=== PATIENT | female | born 1980 | race Caucasian/White ===

== ENCOUNTER 2016-10-02 20:08 | Emergency (ER) | payer MEDICARE, OTHER ==
[~2016-10-02 20:08] MED LIST: /ESOM40CA; /ONDA4TA PO; ABIL5TAB; ACET500C; ALBU17IN2 INH; AMIT25TA2; ASPI1TAB6 PO; ATIV1TAB2; CLON0.5T; COLA100C2; CYTO100T PO; DEPA250T2; DEPA500T; DICY10CA PO; DRIS50002 PO; EPIP0.3I2 IJ; FENT100D25; FISHCAP PO; FLON0.054; IBUP600T; KLON0.5T; LASI20TA PO; LIDO1DIS2 TD; LIPI10TA PO; LITH150C; MAGN250T5 PO; METO25TAB PO; MILKSUS OR; MOBI7.5T10 PO; MUCI600T34 PO; MULTCAP8 PO; MULTCHW13 PO; NAPR500T OR; NEXI20CA; NICO21DI26 EXT; OMEP40CA2 PO; OXYC-299 PO; PERC5TAB8; PERC7.5T8; PERCOCET PO; PRENTAB7 PO; PREV30CA11 PO; PRIL20CA PO; PRIL40CA PO; PROT1TAB2 PO; PROV90AE; PROZ20CA11 PO; RISP0.5T16 PO; SERO50TA PO; SUMA125TA OR; TEGR200T PO; TOPA25TA10 PO; TOPI100T OR; TRAM50TA2; TRAZ100T OR; TRAZ50TA; TRAZ50TA4 PO; TYLE325T5 PO; VALI5TAB; VENL37.5; VICO5TAB; VIST25CA; XANA0.5T PO; ZYRT10CA PO; [UNRECOGNIZED DRUG - CODE] PO; [UNRECOGNIZED DRUG - REMARK]; lithium; migraine med
[2016-10-02] MEDS ORDERED: KETOROLAC 30 MG/ML VIAL (J1885) As Ordered ONE (21:07)
[2016-10-02] MEDS ORDERED: METOCLOPRAMIDE INJ 10MG/2ML VIAL (J2765) As Ordered ONE (21:07)
[2016-10-02] MEDS ORDERED: diphenhydrAMINE INJ 50MG/ML VIAL (J1200) As Ordered ONE (21:07)
--- NOTE | 2016-10-02 22:33 | EDDOCDS ---
Physician Documentation [facility] Name: Suyapa Watt Age: 36 yrs Sex: Female : 1980 Arrival Date: 10/02/2016 Time: 20:08 Bed 9 Private MD: No Pcp Disposition: 10/02/16 22:26 Discharged to Home/Self Care. Impression: Migraine with aura. - Condition is Stable. - Discharge Instructions: Migraine Headache. - Medication Reconciliation, Local Pharmacy Hours form. - Follow up: Private Physician; When: 4 - 5 days; Reason: Recheck today's complaints, Continuance of care. - Problem is an ongoing problem. - Symptoms are unchanged. Historical: - Allergies: bee stings (Anaphylaxis); SHELLFISH (Anaphylaxis); Zoloft (Rash); - Home Meds: 1. aspirin 325 mg Oral tab 1 tab once daily 2. Cymbalta 60 mg Oral cpDR 1 cap bid 3. epinephrine 1 mg/mL (1 mL) injection kit 4. ibuprofen 800 mg Oral tab as needed 5. multivitamin Oral tab daily - PMHx: ADHD; Bipolar disorder; bradycardia; cervical cancer; CHF; Hypertension; MD; TIA; - PSHx: Pacemaker Insertion; Hysterectomy; Appendectomy; Cholecystectomy; Gastric Bypass; - Social history: Smoking status: Patient states was never smoker of tobacco. No barriers to communication noted, The patient speaks fluent Wolof. - Family history: Not pertinent. - : The pt / caregiver states he / she is not on anticoagulants. Home medication list is obtained from the patient. - Exposure Risk Screening:: None identified. 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 1 in. (154.94 cm) (R); Pain 8/10; 22:30 BP 115 / 60; Pulse 60; Resp 18; Temp 97.9(TE); Pulse Ox 98% on R/A; Pain 0/10; leonardo 20:10 Body Mass Index 37.41 (89.81 kg, 154.94 cm) dd6 MDM: 21:03 NS 0.9% 1000 ml IV at bolus once ordered. ke 21:03 Metoclopramide 10 mg IV at 40 mg/hr once over 15 mins ordered. ke 21:03 ketorolac 30 mg IVP once ordered. ke 21:03 diphenhydrAMINE 50 mg IVP once ordered. ke 21:20 Financial registration complete. ron :34 [facility] Payment Agreement was scanned into [employer] and attached to record. gjb Administered Medications: 21:20 Drug: NS 0.9% 1000 ml [sodium chloride 0.9 % intravenous solution] Route: IV; Rate: ko2 bolus; Site: right antecubital; 21:20 Drug: Metoclopramide 10 mg [metoclopramide 5 mg/mL injection solution] Route: IV; Rate: ko2 40 mg/hr; Infused Over: 15 mins; Site: right antecubital; 22:23 Follow up: Response: Nausea is resolved; IV Status: Completed infusion ko2 21:20 Drug: ketorolac 30 mg [ketorolac 30 mg/mL (1 mL) injection solution (1 mL)] Route: IVP; ko2 Site: right antecubital; 22:23 Follow up: Response: Pain is decreased ko2 21:20 Drug: diphenhydrAMINE 50 mg [diphenhydramine 50 mg/mL injection solution (1 mL)] Route: ko2 IVP; Site: right antecubital; 22:23 Follow up: Response: Pain is decreased ko2 Signatures: Tereso Mcqueen, INFORMATICIST INFORMATICISTHolly Kidd RN RN ko2 Geri Denton RN RN ms18 Silva Reynoso The chart was reviewed and I authenticate all verbal orders and agree with the evaluation and treatment provided.Attachments: :34 [facility] Payment Agreement gjb MTDD
--- NOTE | 2016-10-02 22:33 | EDDOCDS ---
Nurse's Notes [facility] Name: Suyapa Watt Age: 36 yrs Sex: Female : 1980 Arrival Date: 10/02/2016 Time: 20:08 Bed 9 Private MD: No Pcp Diagnosis: Migraine with aura Presentation: 10/02 20:16 Presenting complaint: Patient states: that she has some L sided facial droop and ms18 headache that began this morning. PT states that this has happened once before and she was flown to [place] and diagnosed with "migraine aura". The last date and time the patient was known to be well was was at on October 01, 2016. No acute neurological deficit is noted. Pre-hospital glucose is not applicable to this patient. Adult Sepsis Screening: The patient does not have new or worsening altered mentation. Patient's respiratory rate is less than 22. Systolic blood pressure is greater than 100. Patient has a qSOFA score of 0- Negative Sepsis Screen. Suicide/Homicide risk assessment- the patient denies having any suicidal and/or homicidal ideations and does not present with any other emotional, behavioral or mental health complaints. 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 Transition of care: patient was not received from another setting of care. 20:16 Acuity: ERIN Level 3 ms18 20:16 Method Of Arrival: Walkin/Carried/Asstd ms18 Triage Assessment: 20:19 The onset of the patients symptoms was more than three hours ago. General: Appears in ms18 no apparent distress, obese, Behavior is appropriate for age, cooperative. Pain: Location: head Pain currently is 10 out of 10 on a pain scale. HIV screening NA for this visit Offered previously. Neurological: Level of Consciousness is awake, alert, obeys commands, Oriented to person, place, time, Theater Manager are equal bilaterally Moves all extremities. Gait is steady, Speech is normal, Facial droop on left, Reports headache. Respiratory: No deficits noted. Derm: Skin is pink, warm & dry. 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 aspirin 325 mg Oral tab 1 tab once daily 2. Cymbalta 60 mg Oral cpDR 1 cap bid 3. epinephrine 1 mg/mL (1 mL) injection kit 4. ibuprofen 800 mg Oral tab as needed 5. multivitamin Oral tab daily - PMHx: ADHD; Bipolar disorder; bradycardia; cervical cancer; CHF; Hypertension; [place]; TIA; - PSHx: Pacemaker Insertion; Hysterectomy; Appendectomy; Cholecystectomy; Gastric Bypass; - Social history: Smoking status: Patient states was never smoker of tobacco. No barriers to communication noted, The patient speaks fluent Syriac. - Family history: Not pertinent. - : The pt / caregiver states he / she is not on anticoagulants. Home medication list is obtained from the patient. - Exposure Risk Screening:: None identified. Screenin:48 Screening information is obtained from the patient. Fall risk: No risks identified. ko2 Assistance ADL's: requires no assistance with activities of daily living. Abuse/DV Screen: The patient / caregiver reports he/she is: not in a situation that causes fear, pain or injury. Nutritional screening: No deficits noted. Advance Directives: Currently, there is no health care proxy. There is no active DNR order. There is no living will. There is no Power of Phlebotomy Services Representative. home support is adequate. Assessment: 20:47 General: Appears uncomfortable, Behavior is appropriate for age, cooperative, Reports ko2 started with the dropping of face earlier and then now her head is "pounding". Pain: Location: head Pain currently is 9 out of 10 on a pain scale. Neurological: Level of Consciousness is awake, alert, Oriented to person, place, time, Speech Facial droop on left. Respiratory: Airway is patent Respiratory effort is even, unlabored. Derm: Skin is normal. 21:45 General: Appears in no apparent distress, Behavior is appropriate for age, cooperative. ko2 Neurological: No deficits noted. Respiratory: Airway is patent Respiratory effort is even, unlabored. Derm: Skin is normal. 22:30 General: Appears in no apparent distress, comfortable, Behavior is appropriate for age, ko2 cooperative. Pain: Denies pain. Neurological: Level of Consciousness is awake, alert, Oriented to person, place, time, Facial symmetry appears normal. Respiratory: Airway is patent Respiratory effort is even, unlabored. Derm: Skin is normal. Vital Signs: 20:10 BP 149 / 96; Pulse 75; Resp 18 S; Temp 98.6(O); Pulse Ox 98% on R/A; Weight 89.81 kg dd6 (R); Height 5 ft. 1 in. (154.94 cm) (R); Pain 8/10; 22:30 BP 115 / 60; Pulse 60; Resp 18; Temp 97.9(TE); Pulse Ox 98% on R/A; Pain 0/10; leonardo 20:10 Body Mass Index 37.41 (89.81 kg, 154.94 cm) dd6 Vitals: 20:10 Log In Time: October 02, 2016 at 20:10. RN notified that patient meets Red Flag dd6 criteria. 22:32 Glucose Measurement D-stick deferred by provider. ko2 ED Course: 20:09 Patient visited by Collin Echeverria PCA. dd6 20:09 No Pcp is Private Physician. dd6 20:09 Patient moved to Waiting dd6 20:12 Patient visited by Collin Echeverria PCA. dd6 20:12 Patient visited by Collin Echeverria PCA. dd6 20:13 Patient visited by Collin Echeverria PCA. dd6 20:13 Patient moved to Pre RCE dd6 20:18 Triage Initiated ms18 20:21 Holly Bhagat,RN is Primary Nurse. ms18 20:21 Patient moved to 9 ms18 20:40 Patient visited by Regis Agee,CALLUM. jf3 20:40 Inserted saline lock: 20 gauge in right antecubital area The patient tolerated the jf3 procedure well. 20:46 Tereso Mcqueen FNP is [facility]. ke 20:46 Patient visited by Tereso Mcqueen FNP. ke 20:46 Patient visited by Tereso Mcqueen FNP. ke 20:48 Patient visited by Holly Bhagat RN. ko2 20:48 The patient / caregiver is instructed regarding the plan of care and ED course. ko2 21:19 Patient visited by Holly Bhagat RN. ko2 21:34 [facility] Payment Agreement was scanned into [employer] and attached to record. gjb 21:52 Patient visited by Tereso Mcqueen FNP. ke 22:25 Patient visited by Tereso Mcqueen FNP. ke 22:30 Patient visited by Binta Cabrera PCA. leonardo 22:31 Discontinued IV lock intact, bleeding controlled, pressure dressing applied, No ko2 redness/swelling at site. No procedures done that require assistance. Administered Medications: 21:20 Drug: NS 0.9% 1000 ml [sodium chloride 0.9 % intravenous solution] Route: IV; Rate: ko2 bolus; Site: right antecubital; 21:20 Drug: Metoclopramide 10 mg [metoclopramide 5 mg/mL injection solution] Route: IV; Rate: ko2 40 mg/hr; Infused Over: 15 mins; Site: right antecubital; 22:23 Follow up: Response: Nausea is resolved; IV Status: Completed infusion ko2 21:20 Drug: ketorolac 30 mg [ketorolac 30 mg/mL (1 mL) injection solution (1 mL)] Route: IVP; ko2 Site: right antecubital; 22:23 Follow up: Response: Pain is decreased ko2 21:20 Drug: diphenhydrAMINE 50 mg [diphenhydramine 50 mg/mL injection solution (1 mL)] Route: ko2 IVP; Site: right antecubital; 22:23 Follow up: Response: Pain is decreased ko2 Order Results: There are currently no results for this order. Outcome: 22:26 Discharge ordered by Provider. ke 22:31 Discharge Assessment: Patient awake, alert and oriented x 3. No cognitive and/or ko2 functional deficits noted. Patient verbalized understanding of disposition instructions. patient administered narcotics - no. The following High Risk Discharge criteria are identified: None. Discharged to home ambulatory, with significant other. Condition: stable. Discharge instructions given to patient, Instructed on discharge instructions, follow up and referral plans. Demonstrated understanding of instructions, Pt was receptive of discharge instructions/ teaching. No special radiology studies were completed. Property sent home with patient. 22:32 Patient left the ED. ko2 Signatures: Tereso Mcqueen, RN PSYCHIATRIC RN PSYCHIATRIC Collin Egan, SITE PROJECT MANAGER SITE PROJECT MANAGER dd6 Binta Cabrera, SITE PROJECT MANAGER SITE PROJECT MANAGER leonardo Holly BhagatRN RN ko2 Geri Denton,CALLUM RN ms18 Regis Agee,CALLUM RN jf3 Silva Reynoso MTDD
--- NOTE | 2016-10-04 23:33 | EDDOCDS ---
Physician Documentation [facility] Name: Suyapa Watt Age: 36 yrs Sex: Female : 1980 Arrival Date: 10/02/2016 Time: 20:08 Bed 9 Private MD: No Pcp Disposition: 10/02/16 22:26 Discharged to Home/Self Care. Impression: Migraine with aura. - Condition is Stable. - Discharge Instructions: Migraine Headache. - Medication Reconciliation, Local Pharmacy Hours form. - Follow up: Private Physician; When: 4 - 5 days; Reason: Recheck today's complaints, Continuance of care. - Problem is an ongoing problem. - Symptoms are unchanged. Historical: - Allergies: bee stings (Anaphylaxis); SHELLFISH (Anaphylaxis); Zoloft (Rash); - Home Meds: 1. aspirin 325 mg Oral tab 1 tab once daily 2. Cymbalta 60 mg Oral cpDR 1 cap bid 3. epinephrine 1 mg/mL (1 mL) injection kit 4. ibuprofen 800 mg Oral tab as needed 5. multivitamin Oral tab daily - PMHx: ADHD; Bipolar disorder; bradycardia; cervical cancer; CHF; Hypertension; [place]; TIA; - PSHx: Pacemaker Insertion; Hysterectomy; Appendectomy; Cholecystectomy; Gastric Bypass; - Social history: Smoking status: Patient states was never smoker of tobacco. No barriers to communication noted, The patient speaks fluent Greenlandic. - Family history: Not pertinent. - : The pt / caregiver states he / she is not on anticoagulants. Home medication list is obtained from the patient. - Exposure Risk Screening:: None identified. 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 1 in. (154.94 cm) (R); Pain 8/10; 22:30 BP 115 / 60; Pulse 60; Resp 18; Temp 97.9(TE); Pulse Ox 98% on R/A; Pain 0/10; leonardo 20:10 Body Mass Index 37.41 (89.81 kg, 154.94 cm) dd6 MDM: 21:03 NS 0.9% 1000 ml IV at bolus once ordered. ke 21:03 Metoclopramide 10 mg IV at 40 mg/hr once over 15 mins ordered. ke 21:03 ketorolac 30 mg IVP once ordered. ke 21:03 diphenhydrAMINE 50 mg IVP once ordered. ke 21:20 Financial registration complete. [facility] :34 [facility] Payment Agreement was scanned into [employer] and attached to record. [facility] 10/03 01:43 T-Sheet-- Draft Copy was scanned into [employer] and attached to record. lja Administered Medications: 10/02 21:20 Drug: NS 0.9% 1000 ml [sodium chloride 0.9 % intravenous solution] Route: IV; Rate: ko2 bolus; Site: right antecubital; 21:20 Drug: Metoclopramide 10 mg [metoclopramide 5 mg/mL injection solution] Route: IV; Rate: ko2 40 mg/hr; Infused Over: 15 mins; Site: right antecubital; 22:23 Follow up: Response: Nausea is resolved; IV Status: Completed infusion ko2 21:20 Drug: ketorolac 30 mg [ketorolac 30 mg/mL (1 mL) injection solution (1 mL)] Route: IVP; ko2 Site: right antecubital; 22:23 Follow up: Response: Pain is decreased ko2 21:20 Drug: diphenhydrAMINE 50 mg [diphenhydramine 50 mg/mL injection solution (1 mL)] Route: ko2 IVP; Site: right antecubital; 22:23 Follow up: Response: Pain is decreased ko2 Signatures: Tereso Mcqueen, CONTRACT ANALYST CONTRACT ANALYST Holly Simpson RN RN ko2 Geri Denton RN RN ms18 ArelAnna Gabriela gjb The chart was reviewed and I authenticate all verbal orders and agree with the evaluation and treatment provided.Attachments: :34 [facility] Payment Agreement [facility] 10/03 01:43 T-Sheet-- Draft Copy [facility] Chart Complete MTDD
--- NOTE | 2016-10-04 23:33 | EDDOCDS ---
Physician Documentation [facility] Name: Suyapa Watt Age: 36 yrs Sex: Female : 1980 Arrival Date: 10/02/2016 Time: 20:08 Bed 9 Private MD: No Pcp Disposition: 10/02/16 22:26 Discharged to Home/Self Care. Impression: Migraine with aura. - Condition is Stable. - Discharge Instructions: Migraine Headache. - Medication Reconciliation, Local Pharmacy Hours form. - Follow up: Private Physician; When: 4 - 5 days; Reason: Recheck today's complaints, Continuance of care. - Problem is an ongoing problem. - Symptoms are unchanged. Historical: - Allergies: bee stings (Anaphylaxis); SHELLFISH (Anaphylaxis); Zoloft (Rash); - Home Meds: 1. aspirin 325 mg Oral tab 1 tab once daily 2. Cymbalta 60 mg Oral cpDR 1 cap bid 3. epinephrine 1 mg/mL (1 mL) injection kit 4. ibuprofen 800 mg Oral tab as needed 5. multivitamin Oral tab daily - PMHx: ADHD; Bipolar disorder; bradycardia; cervical cancer; CHF; Hypertension; [place]; TIA; - PSHx: Pacemaker Insertion; Hysterectomy; Appendectomy; Cholecystectomy; Gastric Bypass; - Social history: Smoking status: Patient states was never smoker of tobacco. No barriers to communication noted, The patient speaks fluent Persian. - Family history: Not pertinent. - : The pt / caregiver states he / she is not on anticoagulants. Home medication list is obtained from the patient. - Exposure Risk Screening:: None identified. 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 1 in. (154.94 cm) (R); Pain 8/10; 22:30 BP 115 / 60; Pulse 60; Resp 18; Temp 97.9(TE); Pulse Ox 98% on R/A; Pain 0/10; leonardo 20:10 Body Mass Index 37.41 (89.81 kg, 154.94 cm) dd6 MDM: 21:03 NS 0.9% 1000 ml IV at bolus once ordered. ke 21:03 Metoclopramide 10 mg IV at 40 mg/hr once over 15 mins ordered. ke 21:03 ketorolac 30 mg IVP once ordered. ke 21:03 diphenhydrAMINE 50 mg IVP once ordered. ke 21:20 Financial registration complete. [facility] :34 [facility] Payment Agreement was scanned into [employer] and attached to record. [facility] 10/03 01:43 T-Sheet-- Draft Copy was scanned into [employer] and attached to record. lja Administered Medications: 10/02 21:20 Drug: NS 0.9% 1000 ml [sodium chloride 0.9 % intravenous solution] Route: IV; Rate: ko2 bolus; Site: right antecubital; 21:20 Drug: Metoclopramide 10 mg [metoclopramide 5 mg/mL injection solution] Route: IV; Rate: ko2 40 mg/hr; Infused Over: 15 mins; Site: right antecubital; 22:23 Follow up: Response: Nausea is resolved; IV Status: Completed infusion ko2 21:20 Drug: ketorolac 30 mg [ketorolac 30 mg/mL (1 mL) injection solution (1 mL)] Route: IVP; ko2 Site: right antecubital; 22:23 Follow up: Response: Pain is decreased ko2 21:20 Drug: diphenhydrAMINE 50 mg [diphenhydramine 50 mg/mL injection solution (1 mL)] Route: ko2 IVP; Site: right antecubital; 22:23 Follow up: Response: Pain is decreased ko2 Signatures: Tereso Mcqueen, SLAG SKIMMER SLAG SKIMMER Holly Simpson RN RN ko2 Geri Denton RN RN ms18 ArelAnna Gabriela gjb The chart was reviewed and I authenticate all verbal orders and agree with the evaluation and treatment provided.Attachments: :34 [facility] Payment Agreement [facility] 10/03 01:43 T-Sheet-- Draft Copy [facility] Chart Complete MTDD
--- NOTE | 2016-10-04 23:33 | EDDOCDS ---
Nurse's Notes [facility] Name: Suyapa Watt Age: 36 yrs Sex: Female : 1980 Arrival Date: 10/02/2016 Time: 20:08 Bed 9 Private MD: No Pcp Diagnosis: Migraine with aura Presentation: 10/02 20:16 Presenting complaint: Patient states: that she has some L sided facial droop and ms18 headache that began this morning. PT states that this has happened once before and she was flown to [place] and diagnosed with "migraine aura". The last date and time the patient was known to be well was was at on October 01, 2016. No acute neurological deficit is noted. Pre-hospital glucose is not applicable to this patient. Adult Sepsis Screening: The patient does not have new or worsening altered mentation. Patient's respiratory rate is less than 22. Systolic blood pressure is greater than 100. Patient has a qSOFA score of 0- Negative Sepsis Screen. Suicide/Homicide risk assessment- the patient denies having any suicidal and/or homicidal ideations and does not present with any other emotional, behavioral or mental health complaints. Status: Patient is not a caregiver services home or dependent. Transition of care: patient was not received from another setting of care. 20:16 Acuity: ERIN Level 3 ms18 20:16 Method Of Arrival: Walkin/Carried/Asstd ms18 Triage Assessment: 20:19 The onset of the patients symptoms was more than three hours ago. General: Appears in ms18 no apparent distress, obese, Behavior is appropriate for age, cooperative. Pain: Location: head Pain currently is 10 out of 10 on a pain scale. HIV screening NA for this visit Offered previously. Neurological: Level of Consciousness is awake, alert, obeys commands, Oriented to person, place, time, Learning Support Assistant are equal bilaterally Moves all extremities. Gait is steady, Speech is normal, Facial droop on left, Reports headache. Respiratory: No deficits noted. Derm: Skin is pink, warm & dry. 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 aspirin 325 mg Oral tab 1 tab once daily 2. Cymbalta 60 mg Oral cpDR 1 cap bid 3. epinephrine 1 mg/mL (1 mL) injection kit 4. ibuprofen 800 mg Oral tab as needed 5. multivitamin Oral tab daily - PMHx: ADHD; Bipolar disorder; bradycardia; cervical cancer; CHF; Hypertension; IA; TIA; - PSHx: Pacemaker Insertion; Hysterectomy; Appendectomy; Cholecystectomy; Gastric Bypass; - Social history: Smoking status: Patient states was never smoker of tobacco. No barriers to communication noted, The patient speaks fluent [place]. - Family history: Not pertinent. - : The pt / caregiver states he / she is not on anticoagulants. Home medication list is obtained from the patient. - Exposure Risk Screening:: None identified. Screenin:48 Screening information is obtained from the patient. Fall risk: No risks identified. ko2 Assistance ADL's: requires no assistance with activities of daily living. Abuse/DV Screen: The patient / caregiver reports he/she is: not in a situation that causes fear, pain or injury. Nutritional screening: No deficits noted. Advance Directives: Currently, there is no health care proxy. There is no active DNR order. There is no living will. There is no Power of Agricultural Systems Specialist. home support is adequate. Assessment: 20:47 General: Appears uncomfortable, Behavior is appropriate for age, cooperative, Reports ko2 started with the dropping of face earlier and then now her head is "pounding". Pain: Location: head Pain currently is 9 out of 10 on a pain scale. Neurological: Level of Consciousness is awake, alert, Oriented to person, place, time, Speech Facial droop on left. Respiratory: Airway is patent Respiratory effort is even, unlabored. Derm: Skin is normal. 21:45 General: Appears in no apparent distress, Behavior is appropriate for age, cooperative. ko2 Neurological: No deficits noted. Respiratory: Airway is patent Respiratory effort is even, unlabored. Derm: Skin is normal. 22:30 General: Appears in no apparent distress, comfortable, Behavior is appropriate for age, ko2 cooperative. Pain: Denies pain. Neurological: Level of Consciousness is awake, alert, Oriented to person, place, time, Facial symmetry appears normal. Respiratory: Airway is patent Respiratory effort is even, unlabored. Derm: Skin is normal. Vital Signs: 20:10 BP 149 / 96; Pulse 75; Resp 18 S; Temp 98.6(O); Pulse Ox 98% on R/A; Weight 89.81 kg dd6 (R); Height 5 ft. 1 in. (154.94 cm) (R); Pain 8/10; 22:30 BP 115 / 60; Pulse 60; Resp 18; Temp 97.9(TE); Pulse Ox 98% on R/A; Pain 0/10; leonardo 20:10 Body Mass Index 37.41 (89.81 kg, 154.94 cm) dd6 Vitals: 20:10 Log In Time: October 02, 2016 at 20:10. RN notified that patient meets Red Flag dd6 criteria. 22:32 Glucose Measurement D-stick deferred by provider. ko2 ED Course: 20:09 Patient visited by Collin Echeverria PCA. dd6 20:09 No Pcp is Private Physician. dd6 20:09 Patient moved to Waiting dd6 20:12 Patient visited by Collin Echeverria PCA. dd6 20:12 Patient visited by Collin Echeverria PCA. dd6 20:13 Patient visited by Collin Echeverria PCA. dd6 20:13 Patient moved to Pre RCE dd6 20:18 Triage Initiated ms18 20:21 Holly Bhagat,RN is Primary Nurse. ms18 20:21 Patient moved to 9 ms18 20:40 Patient visited by Regis Agee,CALLUM. jf3 20:40 Inserted saline lock: 20 gauge in right antecubital area The patient tolerated the jf3 procedure well. 20:46 Tereso Mcqueen FNP [facility]. ke 20:46 Patient visited by Tereso Mcqueen FNP. ke 20:46 Patient visited by Tereso Mcqueen FNP. ke 20:48 Patient visited by Holly Bhagat RN. ko2 20:48 The patient / caregiver is instructed regarding the plan of care and ED course. ko2 21:19 Patient visited by Holly Bhagat RN. ko2 21:34 [facility] Payment Agreement was scanned into [employer] and attached to record. gjb 21:52 Patient visited by Tereso Mcqueen FNP. ke 22:25 Patient visited by Tereso Mcqueen FNP. ke 22:30 Patient visited by Binta Cabrera PCA. leonardo 22:31 Discontinued IV lock intact, bleeding controlled, pressure dressing applied, No ko2 redness/swelling at site. No procedures done that require assistance. 10/03 01:43 T-Sheet-- Draft Copy was scanned into [employer] and attached to record. oapl Administered Medications: 10/02 21:20 Drug: NS 0.9% 1000 ml [sodium chloride 0.9 % intravenous solution] Route: IV; Rate: ko2 bolus; Site: right antecubital; 21:20 Drug: Metoclopramide 10 mg [metoclopramide 5 mg/mL injection solution] Route: IV; Rate: ko2 40 mg/hr; Infused Over: 15 mins; Site: right antecubital; 22:23 Follow up: Response: Nausea is resolved; IV Status: Completed infusion ko2 21:20 Drug: ketorolac 30 mg [ketorolac 30 mg/mL (1 mL) injection solution (1 mL)] Route: IVP; ko2 Site: right antecubital; 22:23 Follow up: Response: Pain is decreased ko2 21:20 Drug: diphenhydrAMINE 50 mg [diphenhydramine 50 mg/mL injection solution (1 mL)] Route: ko2 IVP; Site: right antecubital; 22:23 Follow up: Response: Pain is decreased ko2 Order Results: There are currently no results for this order. Outcome: 22:26 Discharge ordered by Provider. ke 22:31 Discharge Assessment: Patient awake, alert and oriented x 3. No cognitive and/or ko2 functional deficits noted. Patient verbalized understanding of disposition instructions. patient administered narcotics - no. The following High Risk Discharge criteria are identified: None. Discharged to home ambulatory, with significant other. Condition: stable. Discharge instructions given to patient, Instructed on discharge instructions, follow up and referral plans. Demonstrated understanding of instructions, Pt was receptive of discharge instructions/ teaching. No special radiology studies were completed. Property sent home with patient. 22:32 Patient left the ED. ko2 Signatures: Tereso Mcqueen, Collin Webber, BLENDER MACHINE OPERATOR BLENDER MACHINE OPERATOR dd6 Binta Cabrera, BLENDER MACHINE OPERATOR BLENDER MACHINE OPERATOR Holly MontoyaRN RN ko2 Geri Denton RN RN ms18 Arel, Regis BecerrilRN RN jf3 Reynoso, Silva gjb Chart Complete MTDD
== END 2016-10-02 22:32 | disposition home or self-care (01) ==
LOC: M ED 20:08
DX: G43.809 Other migraine, not intractable, without status migrainosus (principal); I50.9 Heart failure, unspecified; I10 Essential (primary) hypertension; I25.2 Old myocardial infarction; F90.9 Attention-deficit hyperactivity disorder, unspecified type; F31.9 Bipolar disorder, unspecified; R00.1 Bradycardia, unspecified; Z95.0 Presence of cardiac pacemaker; Z86.73 Personal history of transient ischemic attack (TIA), and cerebral infarction without residual deficits; Z85.41 Personal history of malignant neoplasm of cervix uteri; Z90.79 Acquired absence of other genital organ(s); Z90.89 Acquired absence of other organs; Z98.84 Bariatric surgery status; Z79.82 Long term (current) use of aspirin; Z79.899 Other long term (current) drug therapy; Z88.8 Allergy status to other drugs, medicaments and biological substances; Z91.030 Bee allergy status; Z91.013 Allergy to seafood
CPT/HCPCS: 96365; 96375; 99283; J1200; J1885; J2765

== ENCOUNTER 2016-10-13 16:28 | Emergency (ER) | payer MEDICARE, OTHER ==
[2016-10-13] MEDS ORDERED: diphenhydrAMINE INJ 50MG/ML VIAL (J1200) As Ordered ONE (18:04)
[2016-10-13] MEDS ORDERED: METOCLOPRAMIDE INJ 10MG/2ML VIAL (J2765) As Ordered ONE (18:04)
[2016-10-13 18:06] LABS: BASO # 0.1 K/mm3 (0.0-0.2); BASO % 0.8 % (0.0-1.0); EOS # 0.1 K/mm3 (0.0-0.50); EOS % 1.6 % (0.0-3.0); LARGE UNSTAINED CELL # 0.1 K/mm3 (0.0-0.4); LARGE UNSTAINED CELL % 1.4 % (0.0-4.0); LYMPH # 2.5 K/mm3 (1.5-4.5); LYMPH % 33.3 % (24.0-44.0); MEAN CORPUSCULAR HEMOGLOBIN 24.8 pg (27.0-33.0); MEAN CORPUSCULAR HGB CONC 32.7 g/dl (32.0-36.5); MEAN CORPUSCULAR VOLUME 75.7 fl (80.0-96.0); MONO # 0.3 K/mm3 (0.0-0.8); MONO % 4.7 % (0.0-5.0); NEUTROPHILS # 4.2 K/mm3 (1.8-7.7); NEUTROPHILS % 58.3 % (36.0-66.0); PLATELET COUNT, AUTOMATED 249 k/mm3 (150-450); RED CELL DISTRIBUTION WIDTH 14.2 % (11.5-14.5); WHITE BLOOD COUNT 7.3 K/mm3 (4.0-10.0)
--- NOTE | 2016-10-13 18:17 | REP ---
Clinical: Near-syncopal episode . Comparison: 09/22/2016 . Technique: PA and lateral. Findings: The mediastinum and cardiac silhouette are normal. Pacemaker in stable position. The lung gomez are clear and without acute consolidation, effusion, or pneumothorax. The skeletal structures are intact and normal. Impression: 1. No acute cardiopulmonary process. Signed by Beni Lewis MD 10/13/2016 06:08 P
[2016-10-13 18:38] LABS: ANION GAP 8 MEQ/L (8-16); BLOOD UREA NITROGEN 8 MG/DL (7-18); CALCIUM LEVEL 8.2 MG/DL (8.5-10.1); CARBON DIOXIDE LEVEL 26 MEQ/L (21-32); CHLORIDE LEVEL 108 MEQ/L (98-107); CREATININE FOR GFR 0.78 MG/DL (0.55-1.02); GLOMERULAR FILTRATION RATE > 60.0 (>60); GLUCOSE, FASTING 96 MG/DL (70-105); POTASSIUM SERUM 3.5 MEQ/L (3.5-5.1); SODIUM LEVEL 142 MEQ/L (136-145)
--- NOTE | 2016-10-13 18:47 | REP ---
Clinical: Severe headache . Comparison: 08/25/2015 . Findings: The ventricles, sulci, and cisterns are normal in position and appearance. Boone-white differentiation is maintained. No acute intracranial hemorrhage, mass/mass effect, pathology or trauma/injury. No evidence for acute infarction. No extra-axial fluid collection. Calvarium is intact. Paranasal sinuses and mastoid air cells are clear. Impression: Normal noncontrast head CT. No evidence for acute intracranial pathology or trauma/injury. Signed by Beni Lewis MD 10/13/2016 06:39 P
[2016-10-13 18:50] LABS: AMPHETAMINES LEVEL URINE NEGATIVE (NEGATIVE); BENZODIAZEPINES URINE NEGATIVE (NEGATIVE); COCAINE METABOLITE URINE NEGATIVE (NEGATIVE); CONTROL LINE INT CTR LINE PRESENT; METHADONE URINE NEGATIVE (NEGATIVE); OPIATES URINE NEGATIVE (NEGATIVE); TRICYCLIC ANTIDEPRESS URINE NEGATIVE (NEGATIVE)
[2016-10-13] MEDS ORDERED: KETOROLAC 30 MG/ML VIAL (J1885) As Ordered ONE (19:51)
[2016-10-13] MEDS ORDERED: dexameTHASONE 4 MG/ML 1ML VIAL (J1100) As Ordered ONE (19:51)
[2016-10-13] MEDS ORDERED: MAGNESIUM SULFATE 1 GM/100 ML D5W BAG (10MG/ML) (J3475) As Ordered ONE (19:51)
--- NOTE | 2016-10-13 22:23 | EDDOCDS ---
Nurse's Notes [facility] Name: Suyapa Watt Age: 36 yrs Sex: Female : 1980 Arrival Date: 10/13/2016 Time: 16:28 Bed 15 Private MD: Sb Larkin Diagnosis: Migraine Presentation: 10/13 16:31 Presenting complaint: EMS states: patient FELT FAINT, WEAK. history OF ANXIETY. working jmb AT [employer], [place]. blood sugar 188. Sinus rhythm. NO diarrhea. IB lock with fluids. Suicide/Homicide risk assessment- the patient denies having any suicidal and/or homicidal ideations and does not present with any other emotional, behavioral or mental health complaints. Status: Patient is not a coordinator volunteer services or dependent. Transition of care: patient was not received from another setting of care. 16:31 Acuity: ERIN Level 3 b 16:31 Method Of Arrival: [facility] 16:42 Adult Sepsis Screening: The patient does not have new or worsening altered mentation. jmb Patient's respiratory rate is less than 22. Systolic blood pressure is greater than 100. Patient has a qSOFA score of 0- Negative Sepsis Screen. 17:04 Presenting complaint: Patient states: Patient reports nausea and vomiting x 3 weeks. jmb History of gastric bypass. Patient reports vomiting up blood. Triage Assessment: 16:42 General: Appears in no apparent distress, Behavior is appropriate for age, cooperative. jmb Pain: Denies pain. HIV screening NA for this visit Offered previously. Neurological: Level of Consciousness is awake, alert, obeys commands, Oriented to person, place, time, [employer] are equal bilaterally Speech is normal, Facial symmetry appears normal, Facial symmetry: tongue is midline. Cardiovascular: Capillary refill < 3 seconds Heart tones present Pulses are all present. Rhythm is regular. Respiratory: Airway is patent Respiratory effort is even, unlabored, Respiratory pattern is regular, symmetrical, Breath sounds are clear bilaterally. GI: Abdomen is non- distended Bowel sounds present X 4 quads. Abd is soft X 4 quads. Derm: Skin is pink, warm & dry. Musculoskeletal: Range of motion intact in all extremities. Historical: - Allergies: bee stings (Anaphylaxis); SHELLFISH (Anaphylaxis); Zoloft (Rash); - Home Meds: 1. aspirin 325 mg Oral tab 1 tab once daily 2. Cymbalta 60 mg Oral cpDR 1 cap bid 3. epinephrine 1 mg/mL (1 mL) injection kit 4. ibuprofen 800 mg Oral tab as needed 5. multivitamin Oral tab daily 6. clonazepam 1 mg Oral tab 1 tab 3 times per day - PMHx: ADHD; Bipolar disorder; bradycardia; cervical cancer; CHF; Hypertension; [place]; TIA; - PSHx: Pacemaker Insertion; Hysterectomy; Appendectomy; Cholecystectomy; Gastric Bypass; - Social history: Smoking status: Patient states former smoker of tobacco. No barriers to communication noted, The patient speaks fluent Swedish, Speaks appropriately for age. - Family history: Not pertinent. - : The pt / caregiver states he / she is not on anticoagulants. Home medication list is obtained from the patient. - Exposure Risk Screening:: None identified. Screenin:38 Screening information is obtained from the patient. Fall risk: No risks identified. jo3 Assistance ADL's: requires no assistance with activities of daily living. Abuse/DV Screen: The patient / caregiver reports he/she is: not in a situation that causes fear, pain or injury. Nutritional screening: No deficits noted. Advance Directives: There is no active DNR order. home support is adequate. Assessment: 17:15 General: Appears in no apparent distress, comfortable, Behavior is cooperative, crying. jo3 Neurological: Level of Consciousness is awake, alert, Oriented to person, place, time. Neurological: Reports headache. Cardiovascular: Rhythm is sinus rhythm. Respiratory: Airway is patent Respiratory effort is even, unlabored. GI: No deficits noted. Derm: Skin is pink, warm & dry. 18:10 Reassessment: Patient appears in no apparent distress at this time. No significant jo3 changes noted at this time. Awaiting results. Aware of plan of care . 20:40 Cardiovascular: Rhythm is sinus rhythm. tm5 21:26 Reassessment: Patient appears in no apparent distress at this time. Patient states tm5 feeling better. Patient states symptoms have improved. PT WITH SNORING RESPIRATIONS HEARD, NO S/S OF ANY DISTRESS. Cardiovascular: Rhythm is sinus rhythm. 22:20 Reassessment: Patient appears in no apparent distress at this time. Patient states tm5 feeling better. Patient states symptoms have improved. Vital Signs: 16:50 BP 139 / 62; Pulse 95; Resp 18; Temp 95.9; Pulse Ox 96% on R/A; Weight 90.72 kg; Height rn1 5 ft. 1 in. (154.94 cm); Pain 8/10; 17:34 BP 101 / 64 LA Supine (auto/); Pulse 88; jo3 17:36 BP 109 / 68 LA Sitting; Pulse 98; jo3 17:38 BP 117 / 71 LA Standing (auto/); Pulse 105; jo3 21:26 BP 116 / 66; Pulse 65; Resp 16; Pulse Ox 100% on R/A; tm5 22:20 BP 122 / 77; Pulse 69; Resp 18; Temp 98.3(O); Pulse Ox 99% on R/A; Pain 2/10; tm5 16:50 Body Mass Index 37.79 (90.72 kg, 154.94 cm) rn1 Vitals: 16:42 Log In Time N/A - ambulance arrival[facility] Course: 16:29 Patient visited by Yajaira Patterson, [employer]. lbd 16:29 Patient moved to Waiting lbd 16:30 Sb Larkin is Private Physician. lbd 16:30 Patient moved to 15 lbd 16:33 Triage Initiated [facility] 17:15 No procedures done that require assistance. jo3 17:16 Patient visited by Xena Dumont PCA. jlf 17:20 [facility] le 17:38 The patient / caregiver is instructed regarding the plan of care and ED course. jo3 17:38 Maintain field IV. Dressing intact. Good blood return noted. Site clean & dry. Gauge & jo3 site: 18 in LAC. 17:39 Patient visited by Anna Jaffe FNP. le 17:39 Patient visited by Anna Jaffe FNP. le 17:45 Patient visited by Deb Worthy RN. jo3 18:02 Basic Metabolic Profile Sent. jo3 18:02 CBC with Diff Sent. jo3 18:02 Thyroid Stimulating Hormone Sent. jo3 18:02 Troponin Sent. jo3 18:16 Patient visited by Deb Worthy,CALLUM. jo3 18:17 Patient visited by Linnette Guevara PCA. ls3 18:17 EKG done. (by ED staff). Reviewed by Anna KNAPP. ls3 18:20 [facility] [place] into [employer] and attached to record. gjb 18:25 Urine Toxicology Sent. rn1 18:46 Patient visited by Xena Dumont PCA. jlf 19:01 Patient visited by Deb Worthy RN. jo3 19:07 Patient visited by Yary Malone RN. tm5 19:07 Report received from Deb NOLEN, assumed care of pt at this time. tm5 19:08 Chest, 2 View (pa\\E\\lat) Returned. EDMS 19:08 CT Head Without Contrast Returned. EDMS 20:07 Patient visited by Yary Malone RN. tm5 20:20 Yary Malone RN is Primary Nurse. tm5 20:20 Patient visited by Yary Malone RN. tm5 21:00 Patient visited by Yary Malone RN. tm5 21:25 Patient visited by Yary Malone RN. tm5 22:11 Sb Larkin is Referral Physician. le 22:20 Patient visited by Yary Malone RN. tm5 22:20 Discontinued lock intact, bleeding controlled, pressure dressing applied, No tm5 redness/swelling at site. Administered Medications: 18:15 Drug: NS 0.9% 1000 ml [sodium chloride 0.9 % intravenous solution] Route: IV; Rate: jo3 bolus; Site: left antecubital; 19:39 Follow up: IV Status: Completed infusion; IV Intake: 1000ml tm5 18:15 Drug: diphenhydrAMINE 25 mg [diphenhydramine 50 mg/mL injection solution (0.5 mL)] jo3 Route: IVP; Site: left antecubital; 19:38 Follow up: Response: No Adverse Reaction tm5 18:15 Drug: Metoclopramide 20 mg [metoclopramide 5 mg/mL injection solution] Route: IV; Rate: jo3 80 mg/hr; Infused Over: 15 mins; Site: left antecubital; 20:07 Drug: ketorolac 30 mg [ketorolac 30 mg/mL (1 mL) injection solution (1 mL)] Route: IVP; tm5 Site: left antecubital; 20:40 Follow up: Response: No Adverse Reaction; Pain is decreased tm5 20:07 Drug: Dexamethasone 6 mg [dexamethasone 4 mg/mL injection solution] Route: IV; Rate: tm5 bolus; Site: left antecubital; 21:01 Follow up: Response: No Adverse Reaction tm5 20:26 Drug: Magnesium Sulfate 1 grams [magnesium sulfate 1 gram/100 mL in dextrose 5 % tm5 intravenous piggyback] {Co-Signature: kas2 (Shae Denton RN).} Route: IVPB; Infused Over: 1 hrs; Site: left antecubital; 21:27 Follow up: IV Status: Completed infusion; IV Intake: 100ml tm5 21:27 Follow up: Response: No Adverse Reaction tm5 Intake: 19:39 IV: 1000.00ml; Total: 1000.00ml. tm5 21:27 IV: 100.00ml; Total: 1100.00ml. tm5 Order Results: Lab Order: Basic Metabolic Profile; SPEC'M 10/13/16 17:58 Test: GLUCOSE, FASTING; Value: 96; Range: 70-105; Units: MG/DL; Status: F Test: BLOOD UREA NITROGEN; Value: 8; Range: 7-18; Units: MG/DL; Status: F Test: CREATININE FOR GFR; Value: 0.78; Range: 0.55-1.02; Units: MG/DL; Status: F Test: GLOMERULAR FILTRATION RATE; Value: > 60.0; Range: >60; Status: F Test: SODIUM LEVEL; Value: 142; Range: 136-145; Units: MEQ/L; Status: F Test: POTASSIUM SERUM; Value: 3.5; Range: 3.5-5.1; Units: MEQ/L; Status: F Test: CHLORIDE LEVEL; Value: 108; Range: 98-107; Abnormal: Above high normal; Units: MEQ/L; Status: F Test: CARBON DIOXIDE LEVEL; Value: 26; Range: 21-32; Units: MEQ/L; Status: F Test: ANION GAP; Value: 8; Range: 8-16; Units: MEQ/L; Status: F Test: CALCIUM LEVEL; Value: 8.2; Range: 8.5-10.1; Abnormal: Below low normal; Units: MG/DL; Status: F Test Note: ; Units are mL/min/1.73 m2 Chronic Kidney Disease Staging per NKF: Stage I & II GFR >=60 Normal to Mildly Decreased Stage III GFR 30-59 Moderately Decreased Stage IV GFR 15-29 Severely Decreased Stage V GFR <15 Very Little GFR Left ESRD GFR <15 on PRIVATE DUTY NURSE Lab Order: CBC with Diff; SPEC'M 10/13/16 17:58 Test: WHITE BLOOD COUNT; Value: 7.3; Range: 4.0-10.0; Units: K/mm3; Status: F Test: RED BLOOD COUNT; Value: 4.11; Range: 4.00-5.40; Units: M/mm3; Status: F Test: HEMOGLOBIN; Value: 10.2; Range: 12.0-16.0; Abnormal: Below low normal; Units: g/dl; Status: F Test: HEMATOCRIT; Value: 31.1; Range: 36.0-47.0; Abnormal: Below low normal; Units: %; Status: F Test: MEAN CORPUSCULAR VOLUME; Value: 75.7; Range: 80.0-96.0; Abnormal: Below low normal; Units: fl; Status: F Test: MEAN CORPUSCULAR HEMOGLOBIN; Value: 24.8; Range: 27.0-33.0; Abnormal: Below low normal; Units: pg; Status: F Test: MEAN CORPUSCULAR HGB CONC; Value: 32.7; Range: 32.0-36.5; Units: g/dl; Status: F Test: RED CELL DISTRIBUTION WIDTH; Value: 14.2; Range: 11.5-14.5; Units: %; Status: F Test: PLATELET COUNT, AUTOMATED; Value: 249; Range: 150-450; Units: k/mm3; Status: F Test: NEUTROPHILS %; Value: 58.3; Range: 36.0-66.0; Units: %; Status: F Test: LYMPH %; Value: 33.3; Range: 24.0-44.0; Units: %; Status: F Test: MONO %; Value: 4.7; Range: 0.0-5.0; Units: %; Status: F Test: EOS %; Value: 1.6; Range: 0.0-3.0; Units: %; Status: F Test: BASO %; Value: 0.8; Range: 0.0-1.0; Units: %; Status: F Test: LARGE UNSTAINED CELL %; Value: 1.4; Range: 0.0-4.0; Units: %; Status: F Test: NEUTROPHILS #; Value: 4.2; Range: 1.8-7.7; Units: K/mm3; Status: F Test: LYMPH #; Value: 2.5; Range: 1.5-4.5; Units: K/mm3; Status: F Test: MONO #; Value: 0.3; Range: 0.0-0.8; Units: K/mm3; Status: F Test: EOS #; Value: 0.1; Range: 0.0-0.50; Units: K/mm3; Status: F Test: BASO #; Value: 0.1; Range: 0.0-0.2; Units: K/mm3; Status: F Test: LARGE UNSTAINED CELL #; Value: 0.1; Range: 0.0-0.4; Units: K/mm3; Status: F Lab Order: Thyroid Stimulating Hormone; SPEC'M 10/13/16 17:58 Test: THYROID STIMULATING HORMONE; Value: 2.190; Range: 0.358-3.740; Units: uIU/ML; Status: F Lab Order: Troponin; SPEC'M 10/13/16 17:58 Test: TROPONIN I; Value: < 0.02; Range: < 0.10; Units: NG/ML; Status: F Test Note: ; Troponin I Reference Interval for [employer] LOCI: 99th Percentile= 0.00-0.045 ng/ml Risk Stratification: <= 0.10 ng/ml Decreased Risk for Adverse Clinical Events. 0.10-1.50 ng/ml Increased Risk for Adverse Clinical Events. Evaluation of additional criterion and/or repeat testing in 2-6 hours is suggested to rule out myocardial damage. >= 1.50 ng/ml Indicative of Myocardial Injury. Lab Order: Urine Toxicology; SPEC'M 10/13/16 18:22 Test: AMPHETAMINES LEVEL URINE; Value: NEGATIVE; Range: NEGATIVE; Status: F Test: BARBITURATES URINE; Value: NEGATIVE; Range: NEGATIVE; Status: F Test: BENZODIAZEPINES URINE; Value: NEGATIVE; Range: NEGATIVE; Status: F Test: CANNABINOIDS URINE; Value: NEGATIVE; Range: NEGATIVE; Status: F Test: COCAINE METABOLITE URINE; Value: NEGATIVE; Range: NEGATIVE; Status: F Test: METHADONE URINE; Value: NEGATIVE; Range: NEGATIVE; Status: F Test: OPIATES URINE; Value: NEGATIVE; Range: NEGATIVE; Status: F Test: TRICYCLIC ANTIDEPRESS URINE; Value: NEGATIVE; Range: NEGATIVE; Status: F Test Note: ; ALL PRESUMPTIVE POSITIVE FINDINGS ARE UNCONFIRMED NORMAL VALUES THRESHOLD IN NG/ML AMPHETAMINES 1000 METHAMPHETAMINES 1000 BARBITURATES 300 BENZODIAZEPINES 300 CANNABINOIDS (THC) 50 COCAINE METABOLITE 300 METHADONE 300 OPIATES 300 PHENCYCLIDINE 25 TRICYCLIC ANTIDEPRESSANTS 1000 RESULTS ARE FOR MEDICAL PURPOSES ONLY. ALL URINE SPECIMENS WILL BE SAVED FOR 3 DAYS. IF CONFIRMATION OF A PRESUMPTIVE POSTIVE SCREEN RESULT IS DESIRED, CALL CHEMISTRY ([phone]) AND REQUEST URINE TO BE SENT TO REFERENCE LAB. FOR A LIST OF CLOSELY RELATED COMPOUNDS PLEASE CALL THE LAB. Lab Order: ETOH; SPEC'M 10/13/16 17:58 Test: ETHYL ALCOHOL (ETHANOL); Value: 0.003; Range: 0.000-0.010; Units: %; Status: F Radiology Order: Chest, 2 View (pa\\E\\lat) Test: Chest, 2 View (pa\\E\\lat) REASON FOR EXAMINATION: near syncope; Clinical: Near-syncopal episode .; ; Comparison: 09/22/2016 .; ; Technique: PA and lateral.; ; Findings:; The mediastinum and cardiac silhouette are normal. Pacemaker in stable position.; The lung gomez are clear and without acute consolidation, effusion, or; pneumothorax. The skeletal structures are intact and normal.; ; Impression:; 1. No acute cardiopulmonary process.; ; ; Signed by; Beni Lewis MD 10/13/2016 06:08 P; Radiology Order: CT Head Without Contrast Test: CT Head Without Contrast REASON FOR EXAMINATION: severe headache, "confusion"; Clinical: Severe headache .; ; Comparison: 08/25/2015 .; ; Findings:; The ventricles, sulci, and cisterns are normal in position and appearance.; Boone-white differentiation is maintained. No acute intracranial hemorrhage,; mass/mass effect, pathology or trauma/injury. No evidence for acute infarction.; No extra-axial fluid collection. Calvarium is intact. Paranasal sinuses and; mastoid air cells are clear.; ; Impression:; Normal noncontrast head CT.; No evidence for acute intracranial pathology or trauma/injury.; ; ; Signed by; Beni Lewis MD 10/13/2016 06:39 P; Outcome: 22:12 Discharge ordered by Provider. le 22:20 Discharge Assessment: Patient awake, alert and oriented x 3. No cognitive and/or tm5 functional deficits noted. Patient verbalized understanding of disposition instructions. patient administered narcotics - no. The following High Risk Discharge criteria are identified: None. Discharged to home ambulatory, with significant other. Condition: good Condition: stable Condition: improved. Discharge instructions given to patient, Instructed on discharge instructions, follow up and referral plans. Demonstrated understanding of instructions, Pt was receptive of discharge instructions/ teaching. Property :Personal belongings accompany Pt. 22:22 CT Study completed. tm5 22:22 Patient left the ED. tm5 Signatures: Dispatcher [employer] EDMS Yajaira Patterson, [employer] Unit lbd Deb Worthy,RN RN jo3 Anna Jaffe, BUSINESS INTELLIGENCE DIRECTOR Nathan Vivas,RN RN Xena Post, CHILDCARE AIDE CHILDCARE AIDE Bulmaro Kaplan rn1 Linnette Guevara, CHILDCARE AIDE CHILDCARE AIDE ls3 Silva Reynoso Tonya,RN RN tm5 Shae Denton RN kas2 Corrections: (The following items were deleted from the chart) 17:45 17:38 BP 117 / 71 Auto; gaurav nolasco MTDD
--- NOTE | 2016-10-13 22:23 | EDDOCDS ---
Physician Documentation [facility] Name: Suyapa Watt Age: 36 yrs Sex: Female : 1980 Arrival Date: 10/13/2016 Time: 16:28 Bed 15 Private MD: Sb Larkin Disposition: 10/13/16 22:12 Discharged to Home/Self Care. Impression: Migraine. - Condition is Stable. - Discharge Instructions: Migraine Headache. - Medication Reconciliation, Local Pharmacy Hours form. - Follow up: Sb Larkin; When: Call to arrange an appointment; Reason: Recheck today's complaints, Continuance of care. Follow up: Private Physician; When: Call to arrange an appointment; Reason: Recheck today's complaints, Continuance of care. - Problem is an acute exacerbation. - Symptoms have improved. - Notes: Keep hydrated Follow-up, with your PCP and Neurologist at [facility], as needed Return to the ED for worsening symptoms Historical: - Allergies: bee stings (Anaphylaxis); SHELLFISH (Anaphylaxis); Zoloft (Rash); - Home Meds: 1. aspirin 325 mg Oral tab 1 tab once daily 2. Cymbalta 60 mg Oral cpDR 1 cap bid 3. epinephrine 1 mg/mL (1 mL) injection kit 4. ibuprofen 800 mg Oral tab as needed 5. multivitamin Oral tab daily 6. clonazepam 1 mg Oral tab 1 tab 3 times per day - PMHx: ADHD; Bipolar disorder; bradycardia; cervical cancer; CHF; Hypertension; [place]; TIA; - PSHx: Pacemaker Insertion; Hysterectomy; Appendectomy; Cholecystectomy; Gastric Bypass; - Social history: Smoking status: Patient states former smoker of tobacco. No barriers to communication noted, The patient speaks fluent Syriac, Speaks appropriately for age. - Family history: Not pertinent. - : The pt / caregiver states he / she is not on anticoagulants. Home medication list is obtained from the patient. - Exposure Risk Screening:: None identified. Vital Signs: 10/13 16:50 BP 139 / 62; Pulse 95; Resp 18; Temp 95.9; Pulse Ox 96% on R/A; Weight 90.72 kg / 200 rn1 lbs; Height 5 ft. 1 in. (154.94 cm); Pain 8/10; 17:34 BP 101 / 64 LA Supine (auto/); Pulse 88; jo3 17:36 BP 109 / 68 LA Sitting; Pulse 98; jo3 17:38 BP 117 / 71 LA Standing (auto/); Pulse 105; jo3 21:26 BP 116 / 66; Pulse 65; Resp 16; Pulse Ox 100% on R/A; tm5 22:20 BP 122 / 77; Pulse 69; Resp 18; Temp 98.3(O); Pulse Ox 99% on R/A; Pain 2/10; tm5 16:50 Body Mass Index 37.79 (90.72 kg, 154.94 cm) rn1 MDM: 17:21 Orthostatic VS ordered. le 17:39 Assistant Casino Shift Manager/Pulse Ox/q 15 min VS ordered. le 17:39 Accucheck ordered. le 17:39 IV Saline Lock ordered. le 17:39 Rhythm Strip to chart ordered. le 17:40 Basic Metabolic Profile Ordered. EDMS 17:40 CBC with Diff Ordered. EDMS 17:40 Thyroid Stimulating Hormone Ordered. EDMS 17:40 Troponin Ordered. EDMS 17:42 Chest, 2 View (pa\E\lat) Ordered. EDMS 17:42 ECG WITH READING ER PHYS+CARDIAG ordered. EDMS 17:53 NS 0.9% 1000 ml IV at bolus once ordered. le 17:53 diphenhydrAMINE 25 mg IVP once ordered. le 17:53 Metoclopramide 20 mg IV at 80 mg/hr once over 15 mins ordered. le 17:54 CT Head Without Contrast Ordered. EDMS 17:55 Urine Toxicology Ordered. EDMS 17:55 ETOH Ordered. EDMS 18:20 [facility] [place] Payment Agreement was scanned into [employer] and attached to record. b 18:20 Financial registration complete. gjb 19:41 Basic Metabolic Profile Reviewed. le 19:41 CBC with Diff Reviewed. le 19:41 Thyroid Stimulating Hormone Reviewed. le 19:41 Troponin Reviewed. le 19:41 Urine Toxicology Reviewed. le 19:41 ETOH Reviewed. le 19:41 Chest, 2 View (pa\E\lat) Reviewed. le 19:41 CT Head Without Contrast Reviewed. le 19:45 ketorolac 30 mg IVP once ordered. le 19:45 Dexamethasone 6 mg IV at bolus once ordered. le 19:46 Magnesium Sulfate 1 grams IVPB once over 1 hrs; administer over at least 1 hour ordered.le Administered Medications: 18:15 Drug: NS 0.9% 1000 ml [sodium chloride 0.9 % intravenous solution] Route: IV; Rate: jo3 bolus; Site: left antecubital; 19:39 Follow up: IV Status: Completed infusion; IV Intake: 1000ml tm5 18:15 Drug: diphenhydrAMINE 25 mg [diphenhydramine 50 mg/mL injection solution (0.5 mL)] jo3 Route: IVP; Site: left antecubital; 19:38 Follow up: Response: No Adverse Reaction tm5 18:15 Drug: Metoclopramide 20 mg [metoclopramide 5 mg/mL injection solution] Route: IV; Rate: jo3 80 mg/hr; Infused Over: 15 mins; Site: left antecubital; 20:07 Drug: ketorolac 30 mg [ketorolac 30 mg/mL (1 mL) injection solution (1 mL)] Route: IVP; tm5 Site: left antecubital; 20:40 Follow up: Response: No Adverse Reaction; Pain is decreased tm5 20:07 Drug: Dexamethasone 6 mg [dexamethasone 4 mg/mL injection solution] Route: IV; Rate: tm5 bolus; Site: left antecubital; 21:01 Follow up: Response: No Adverse Reaction tm5 20:26 Drug: Magnesium Sulfate 1 grams [magnesium sulfate 1 gram/100 mL in dextrose 5 % tm5 intravenous piggyback] {Co-Signature: sandra (Shae Denton RN).} Route: IVPB; Infused Over: 1 hrs; Site: left antecubital; 21:27 Follow up: IV Status: Completed infusion; IV Intake: 100ml tm5 21:27 Follow up: Response: No Adverse Reaction tm5 Signatures: Dispatcher [employer] Deb NortonRN RN fidel3 Anna Jaffe FNP FNP le Becker, Joshua, RN RN jmb Beck, Gabriela gjb Matice, TonyaRN CALLUM tm5 Shae angeles2 The chart was reviewed and I authenticate all verbal orders and agree with the evaluation and treatment provided.Attachments: 18:20 [facility] Payment Agreement ron MTDD
--- NOTE | 2016-10-14 05:50 | ECGEPIP ---
Stationary ECG Study [facility] - ED Test Date: 2016-10-13 Pat Name: ADRI KESSLER Department: Room: - Gender: F Fisher Dip Net: : 1980 Requested By: SHANELL KNAPP Order Number: [id number] Reading MD: Som Boucher Measurements Intervals [place] Rate: 67 P: 25 MN: 162 QRS: -5 QRSD: 85 T: 19 QT: 394 QTc: 419 Interpretive Statements SINUS RHYTHM Electronically Signed On 10-14-2016 5:49:42 EST by Som Boucher
--- NOTE | 2016-10-15 23:23 | EDDOCDS ---
Nurse's Notes [facility] Name: Suyapa Kessler Age: 36 yrs Sex: Female : 1980 Arrival Date: 10/13/2016 Time: 16:28 Bed 15 Private MD: Sb Larkin Diagnosis: Migraine Presentation: 10/13 16:31 Presenting complaint: EMS states: patient FELT FAINT, WEAK. history OF ANXIETY. 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 blood sugar 188. Sinus rhythm. NO diarrhea. IB lock with fluids. Suicide/Homicide risk assessment- the patient denies having any suicidal and/or homicidal ideations and does not present with any other emotional, behavioral or mental health complaints. Status: Patient is not a slitter service and setter or dependent. Transition of care: patient was not received from another setting of care. 16:31 Acuity: ERIN Level 3 b 16:31 Method Of Arrival: Ambulance [facility] 16:42 Adult Sepsis Screening: The patient does not have new or worsening altered mentation. jmb Patient's respiratory rate is less than 22. Systolic blood pressure is greater than 100. Patient has a qSOFA score of 0- Negative Sepsis Screen. 17:04 Presenting complaint: Patient states: Patient reports nausea and vomiting x 3 weeks. jmb History of gastric bypass. Patient reports vomiting up blood. Triage Assessment: 16:42 General: Appears in no apparent distress, Behavior is appropriate for age, cooperative. jmb Pain: Denies pain. HIV screening NA for this visit Offered previously. Neurological: Level of Consciousness is awake, alert, obeys commands, Oriented to person, place, time, Inspector Hairspring Truing are equal bilaterally Speech is normal, Facial symmetry appears normal, Facial symmetry: tongue is midline. Cardiovascular: Capillary refill < 3 seconds Heart tones present Pulses are all present. Rhythm is regular. Respiratory: Airway is patent Respiratory effort is even, unlabored, Respiratory pattern is regular, symmetrical, Breath sounds are clear bilaterally. GI: Abdomen is non- distended Bowel sounds present X 4 quads. Abd is soft X 4 quads. Derm: Skin is pink, warm & dry. Musculoskeletal: Range of motion intact in all extremities. Historical: - Allergies: bee stings (Anaphylaxis); SHELLFISH (Anaphylaxis); Zoloft (Rash); - Home Meds: 1. aspirin 325 mg Oral tab 1 tab once daily 2. Cymbalta 60 mg Oral cpDR 1 cap bid 3. epinephrine 1 mg/mL (1 mL) injection kit 4. ibuprofen 800 mg Oral tab as needed 5. multivitamin Oral tab daily 6. clonazepam 1 mg Oral tab 1 tab 3 times per day - PMHx: ADHD; Bipolar disorder; bradycardia; cervical cancer; CHF; Hypertension; LA; TIA; - PSHx: Pacemaker Insertion; Hysterectomy; Appendectomy; Cholecystectomy; Gastric Bypass; - Social history: Smoking status: Patient states former smoker of tobacco. No barriers to communication noted, The patient speaks fluent Faroese, Speaks appropriately for age. - Family history: Not pertinent. - : The pt / caregiver states he / she is not on anticoagulants. Home medication list is obtained from the patient. - Exposure Risk Screening:: None identified. Screenin:38 Screening information is obtained from the patient. Fall risk: No risks identified. jo3 Assistance ADL's: requires no assistance with activities of daily living. Abuse/DV Screen: The patient / caregiver reports he/she is: not in a situation that causes fear, pain or injury. Nutritional screening: No deficits noted. Advance Directives: There is no active DNR order. home support is adequate. Assessment: 17:15 General: Appears in no apparent distress, comfortable, Behavior is cooperative, crying. jo3 Neurological: Level of Consciousness is awake, alert, Oriented to person, place, time. Neurological: Reports headache. Cardiovascular: Rhythm is sinus rhythm. Respiratory: Airway is patent Respiratory effort is even, unlabored. GI: No deficits noted. Derm: Skin is pink, warm & dry. 18:10 Reassessment: Patient appears in no apparent distress at this time. No significant jo3 changes noted at this time. Awaiting results. Aware of plan of care . 20:40 Cardiovascular: Rhythm is sinus rhythm. tm5 21:26 Reassessment: Patient appears in no apparent distress at this time. Patient states tm5 feeling better. Patient states symptoms have improved. PT WITH SNORING RESPIRATIONS HEARD, NO S/S OF ANY DISTRESS. Cardiovascular: Rhythm is sinus rhythm. 22:20 Reassessment: Patient appears in no apparent distress at this time. Patient states tm5 feeling better. Patient states symptoms have improved. Vital Signs: 16:50 BP 139 / 62; Pulse 95; Resp 18; Temp 95.9; Pulse Ox 96% on R/A; Weight 90.72 kg; Height rn1 5 ft. 1 in. (154.94 cm); Pain 8/10; 17:34 BP 101 / 64 LA Supine (auto/); Pulse 88; jo3 17:36 BP 109 / 68 LA Sitting; Pulse 98; jo3 17:38 BP 117 / 71 LA Standing (auto/); Pulse 105; jo3 21:26 BP 116 / 66; Pulse 65; Resp 16; Pulse Ox 100% on R/A; tm5 22:20 BP 122 / 77; Pulse 69; Resp 18; Temp 98.3(O); Pulse Ox 99% on R/A; Pain 2/10; tm5 16:50 Body Mass Index 37.79 (90.72 kg, 154.94 cm) rn1 Vitals: 16:42 Log In Time N/A - ambulance arrival. [facility] ED Course: 16:29 Patient visited by Yajaira Patterson, Tmd Teacher. lbd 16:29 Patient moved to Waiting lbd 16:30 Sb Larkin is Private Physician. lbd 16:30 Patient moved to 15 lbd 16:33 Triage Initiated [facility] 17:15 No procedures done that require assistance. jo3 17:16 Patient visited by Xena Dumont PCA. jlf 17:20 [facility] Jaffe F[facility] le 17:38 The patient / caregiver is instructed regarding the plan of care and ED course. jo3 17:38 Maintain field IV. Dressing intact. Good blood return noted. Site clean & dry. Gauge & jo3 site: 18 in LAC. 17:39 Patient visited by Anna Jaffe FNP. le 17:39 Patient visited by Anna Jaffe FNP. le 17:45 Patient visited by Deb Worthy RN. jo3 18:02 Basic Metabolic Profile Sent. jo3 18:02 CBC with Diff Sent. jo3 18:02 Thyroid Stimulating Hormone Sent. jo3 18:02 Troponin Sent. jo3 18:16 Patient visited by Deb Worthy,CALLUM. jo3 18:17 Patient visited by Linnette Guevara PCA. ls3 18:17 EKG done. (by ED staff). Reviewed by Anna KNAPP. ls3 18:20 [place] [place] Agreement was scanned into [employer] and attached to record. gjb 18:25 Urine Toxicology Sent. rn1 18:46 Patient visited by Xena Dumont PCA. jlf 19:01 Patient visited by Deb Worthy RN. jo3 19:07 Patient visited by Yary Malone RN. tm5 19:07 Report received from Deb NOLEN, assumed care of pt at this time. tm5 19:08 Chest, 2 View (pa\\E\\lat) Returned. EDMS 19:08 CT Head Without Contrast Returned. EDMS 20:07 Patient visited by Yary Malone RN. tm5 20:20 Yary Malone RN is Primary Nurse. tm5 20:20 Patient visited by Yary Malone RN. tm5 21:00 Patient visited by Yary Malone RN. tm5 21:25 Patient visited by Yary Malone RN. tm5 22:11 Sb Larkin is Referral Physician. le 22:20 Patient visited by Yary Malone RN. tm5 22:20 Discontinued lock intact, bleeding controlled, pressure dressing applied, No tm5 redness/swelling at site. 10/14 06:05 EKG-ADULT Returned. EDMS 08:04 T-Sheet-- Draft Copy was scanned into [employer] and attached to record. se 11:58 ECG/EKG was scanned into [employer] and attached to record. gb Administered Medications: 10/13 18:15 Drug: NS 0.9% 1000 ml [sodium chloride 0.9 % intravenous solution] Route: IV; Rate: jo3 bolus; Site: left antecubital; 19:39 Follow up: IV Status: Completed infusion; IV Intake: 1000ml tm5 18:15 Drug: diphenhydrAMINE 25 mg [diphenhydramine 50 mg/mL injection solution (0.5 mL)] jo3 Route: IVP; Site: left antecubital; 19:38 Follow up: Response: No Adverse Reaction tm5 18:15 Drug: Metoclopramide 20 mg [metoclopramide 5 mg/mL injection solution] Route: IV; Rate: jo3 80 mg/hr; Infused Over: 15 mins; Site: left antecubital; 20:07 Drug: ketorolac 30 mg [ketorolac 30 mg/mL (1 mL) injection solution (1 mL)] Route: IVP; tm5 Site: left antecubital; 20:40 Follow up: Response: No Adverse Reaction; Pain is decreased tm5 20:07 Drug: Dexamethasone 6 mg [dexamethasone 4 mg/mL injection solution] Route: IV; Rate: tm5 bolus; Site: left antecubital; 21:01 Follow up: Response: No Adverse Reaction tm5 20:26 Drug: Magnesium Sulfate 1 grams [magnesium sulfate 1 gram/100 mL in dextrose 5 % tm5 intravenous piggyback] {Co-Signature: kas2 (Shae Denton RN).} Route: IVPB; Infused Over: 1 hrs; Site: left antecubital; 21:27 Follow up: IV Status: Completed infusion; IV Intake: 100ml tm5 21:27 Follow up: Response: No Adverse Reaction tm5 Intake: 19:39 IV: 1000.00ml; Total: 1000.00ml. tm5 21:27 IV: 100.00ml; Total: 1100.00ml. tm5 Order Results: Lab Order: Basic Metabolic Profile; SPEC'M 10/13/16 17:58 Test: GLUCOSE, FASTING; Value: 96; Range: 70-105; Units: MG/DL; Status: F Test: BLOOD UREA NITROGEN; Value: 8; Range: 7-18; Units: MG/DL; Status: F Test: CREATININE FOR GFR; Value: 0.78; Range: 0.55-1.02; Units: MG/DL; Status: F Test: GLOMERULAR FILTRATION RATE; Value: > 60.0; Range: >60; Status: F Test: SODIUM LEVEL; Value: 142; Range: 136-145; Units: MEQ/L; Status: F Test: POTASSIUM SERUM; Value: 3.5; Range: 3.5-5.1; Units: MEQ/L; Status: F Test: CHLORIDE LEVEL; Value: 108; Range: 98-107; Abnormal: Above high normal; Units: MEQ/L; Status: F Test: CARBON DIOXIDE LEVEL; Value: 26; Range: 21-32; Units: MEQ/L; Status: F Test: ANION GAP; Value: 8; Range: 8-16; Units: MEQ/L; Status: F Test: CALCIUM LEVEL; Value: 8.2; Range: 8.5-10.1; Abnormal: Below low normal; Units: MG/DL; Status: F Test Note: ; Units are mL/min/1.73 m2 Chronic Kidney Disease Staging per NKF: Stage I & II GFR >=60 Normal to Mildly Decreased Stage III GFR 30-59 Moderately Decreased Stage IV GFR 15-29 Severely Decreased Stage V GFR <15 Very Little GFR Left ESRD GFR <15 on REHEAT FURNACE OPERATOR Lab Order: CBC with Diff; SPEC'M 10/13/16 17:58 Test: WHITE BLOOD COUNT; Value: 7.3; Range: 4.0-10.0; Units: K/mm3; Status: F Test: RED BLOOD COUNT; Value: 4.11; Range: 4.00-5.40; Units: M/mm3; Status: F Test: HEMOGLOBIN; Value: 10.2; Range: 12.0-16.0; Abnormal: Below low normal; Units: g/dl; Status: F Test: HEMATOCRIT; Value: 31.1; Range: 36.0-47.0; Abnormal: Below low normal; Units: %; Status: F Test: MEAN CORPUSCULAR VOLUME; Value: 75.7; Range: 80.0-96.0; Abnormal: Below low normal; Units: fl; Status: F Test: MEAN CORPUSCULAR HEMOGLOBIN; Value: 24.8; Range: 27.0-33.0; Abnormal: Below low normal; Units: pg; Status: F Test: MEAN CORPUSCULAR HGB CONC; Value: 32.7; Range: 32.0-36.5; Units: g/dl; Status: F Test: RED CELL DISTRIBUTION WIDTH; Value: 14.2; Range: 11.5-14.5; Units: %; Status: F Test: PLATELET COUNT, AUTOMATED; Value: 249; Range: 150-450; Units: k/mm3; Status: F Test: NEUTROPHILS %; Value: 58.3; Range: 36.0-66.0; Units: %; Status: F Test: LYMPH %; Value: 33.3; Range: 24.0-44.0; Units: %; Status: F Test: MONO %; Value: 4.7; Range: 0.0-5.0; Units: %; Status: F Test: EOS %; Value: 1.6; Range: 0.0-3.0; Units: %; Status: F Test: BASO %; Value: 0.8; Range: 0.0-1.0; Units: %; Status: F Test: LARGE UNSTAINED CELL %; Value: 1.4; Range: 0.0-4.0; Units: %; Status: F Test: NEUTROPHILS #; Value: 4.2; Range: 1.8-7.7; Units: K/mm3; Status: F Test: LYMPH #; Value: 2.5; Range: 1.5-4.5; Units: K/mm3; Status: F Test: MONO #; Value: 0.3; Range: 0.0-0.8; Units: K/mm3; Status: F Test: EOS #; Value: 0.1; Range: 0.0-0.50; Units: K/mm3; Status: F Test: BASO #; Value: 0.1; Range: 0.0-0.2; Units: K/mm3; Status: F Test: LARGE UNSTAINED CELL #; Value: 0.1; Range: 0.0-0.4; Units: K/mm3; Status: F Lab Order: Thyroid Stimulating Hormone; SPEC'M 10/13/16 17:58 Test: THYROID STIMULATING HORMONE; Value: 2.190; Range: 0.358-3.740; Units: uIU/ML; Status: F Lab Order: Troponin; SPEC'M 10/13/16 17:58 Test: TROPONIN I; Value: < 0.02; Range: < 0.10; Units: NG/ML; Status: F Test Note: ; Troponin I Reference Interval for Siemens Fluent Home LOCI: 99th Percentile= 0.00-0.045 ng/ml Risk Stratification: <= 0.10 ng/ml Decreased Risk for Adverse Clinical Events. 0.10-1.50 ng/ml Increased Risk for Adverse Clinical Events. Evaluation of additional criterion and/or repeat testing in 2-6 hours is suggested to rule out myocardial damage. >= 1.50 ng/ml Indicative of Myocardial Injury. Lab Order: Urine Toxicology; SPEC'M 10/13/16 18:22 Test: AMPHETAMINES LEVEL URINE; Value: NEGATIVE; Range: NEGATIVE; Status: F Test: BARBITURATES URINE; Value: NEGATIVE; Range: NEGATIVE; Status: F Test: BENZODIAZEPINES URINE; Value: NEGATIVE; Range: NEGATIVE; Status: F Test: CANNABINOIDS URINE; Value: NEGATIVE; Range: NEGATIVE; Status: F Test: COCAINE METABOLITE URINE; Value: NEGATIVE; Range: NEGATIVE; Status: F Test: METHADONE URINE; Value: NEGATIVE; Range: NEGATIVE; Status: F Test: OPIATES URINE; Value: NEGATIVE; Range: NEGATIVE; Status: F Test: TRICYCLIC ANTIDEPRESS URINE; Value: NEGATIVE; Range: NEGATIVE; Status: F Test Note: ; ALL PRESUMPTIVE POSITIVE FINDINGS ARE UNCONFIRMED NORMAL VALUES THRESHOLD IN NG/ML AMPHETAMINES 1000 METHAMPHETAMINES 1000 BARBITURATES 300 BENZODIAZEPINES 300 CANNABINOIDS (THC) 50 COCAINE METABOLITE 300 METHADONE 300 OPIATES 300 PHENCYCLIDINE 25 TRICYCLIC ANTIDEPRESSANTS 1000 RESULTS ARE FOR MEDICAL PURPOSES ONLY. ALL URINE SPECIMENS WILL BE SAVED FOR 3 DAYS. IF CONFIRMATION OF A PRESUMPTIVE POSTIVE SCREEN RESULT IS DESIRED, CALL CHEMISTRY ([phone]) AND REQUEST URINE TO BE SENT TO REFERENCE LAB. FOR A LIST OF CLOSELY RELATED COMPOUNDS PLEASE CALL THE LAB. 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 Pacemaker in stable position.; The lung gomez are clear and without acute consolidation, effusion, or; pneumothorax. The skeletal structures are intact and normal.; ; Impression:; 1. No acute cardiopulmonary process.; ; ; Signed by; Beni Lewis MD 10/13/2016 06:08 P; Radiology Order: CT Head Without Contrast Test: CT Head Without Contrast REASON FOR EXAMINATION: severe headache, "confusion"; Clinical: Severe headache .; ; Comparison: 08/25/2015 .; ; Findings:; The ventricles, sulci, and cisterns are normal in position and appearance.; Boone-white differentiation is maintained. No acute intracranial hemorrhage,; mass/mass effect, pathology or trauma/injury. No evidence for acute infarction.; No extra-axial fluid collection. Calvarium is intact. Paranasal sinuses and; mastoid air cells are clear.; ; Impression:; Normal noncontrast head CT.; No evidence for acute intracranial pathology or trauma/injury.; ; ; Signed by; Beni Lewis MD 10/13/2016 06:39 P; Outcome: 22:12 Discharge ordered by Provider. le 22:20 Discharge Assessment: Patient awake, alert and oriented x 3. No cognitive and/or tm5 functional deficits noted. Patient verbalized understanding of disposition instructions. patient administered narcotics - no. The following High Risk Discharge criteria are identified: None. Discharged to home ambulatory, with significant other. Condition: good Condition: stable Condition: improved. Discharge instructions given to patient, Instructed on discharge instructions, follow up and referral plans. Demonstrated understanding of instructions, Pt was receptive of discharge instructions/ teaching. Property :Personal belongings accompany Pt. 22:22 CT Study completed. tm5 22:22 Patient left the ED. tm5 Signatures: Dispatcher [employer] EDMS Yajaira Patterson, Tmd Teacher Unit lbd Jordyn Reyes, Ryan Reg Deb LukeRN RN Anna Dennis, Nathan Mead RN RN jmb [place], Jordain, STORE STOCK HELP STORE STOCK HELP Bulmaro Kaplan rn1 Linnette Guevara, STORE STOCK HELP STORE STOCK HELP ls3 Silva Reynoso Sarah seh Matice, TonyaRN RN tm5 Shae Denton RN kas2 Corrections: (The following items were deleted from the chart) 17:45 17:38 BP 117 / 71 Auto; jo3 jo3 Chart Complete MTDD
--- NOTE | 2016-10-15 23:23 | EDDOCDS ---
Physician Documentation [facility] Name: Suyapa Watt Age: 36 yrs Sex: Female : 1980 Arrival Date: 10/13/2016 Time: 16:28 Bed 15 Private MD: Sb Larkin Disposition: 10/13/16 22:12 Discharged to Home/Self Care. Impression: Migraine. - Condition is Stable. - Discharge Instructions: Migraine Headache. - Medication Reconciliation, Local Pharmacy Hours form. - Follow up: Sb Larkin; When: Call to arrange an appointment; Reason: Recheck today's complaints, Continuance of care. Follow up: Private Physician; When: Call to arrange an appointment; Reason: Recheck today's complaints, Continuance of care. - Problem is an acute exacerbation. - Symptoms have improved. - Notes: Keep hydrated Follow-up, with your PCP and Neurologist at [facility], as needed Return to the ED for worsening symptoms Historical: - Allergies: bee stings (Anaphylaxis); SHELLFISH (Anaphylaxis); Zoloft (Rash); - Home Meds: 1. aspirin 325 mg Oral tab 1 tab once daily 2. Cymbalta 60 mg Oral cpDR 1 cap bid 3. epinephrine 1 mg/mL (1 mL) injection kit 4. ibuprofen 800 mg Oral tab as needed 5. multivitamin Oral tab daily 6. clonazepam 1 mg Oral tab 1 tab 3 times per day - PMHx: ADHD; Bipolar disorder; bradycardia; cervical cancer; CHF; Hypertension; LA; TIA; - PSHx: Pacemaker Insertion; Hysterectomy; Appendectomy; Cholecystectomy; Gastric Bypass; - Social history: Smoking status: Patient states former smoker of tobacco. No barriers to communication noted, The patient speaks fluent Kinyarwanda, Speaks appropriately for age. - Family history: Not pertinent. - : The pt / caregiver states he / she is not on anticoagulants. Home medication list is obtained from the patient. - Exposure Risk Screening:: None identified. Vital Signs: 10/13 16:50 BP 139 / 62; Pulse 95; Resp 18; Temp 95.9; Pulse Ox 96% on R/A; Weight 90.72 kg / 200 rn1 lbs; Height 5 ft. 1 in. (154.94 cm); Pain 8/10; 17:34 BP 101 / 64 LA Supine (auto/); Pulse 88; jo3 17:36 BP 109 / 68 LA Sitting; Pulse 98; jo3 17:38 BP 117 / 71 LA Standing (auto/); Pulse 105; jo3 21:26 BP 116 / 66; Pulse 65; Resp 16; Pulse Ox 100% on R/A; tm5 22:20 BP 122 / 77; Pulse 69; Resp 18; Temp 98.3(O); Pulse Ox 99% on R/A; Pain 2/10; tm5 16:50 Body Mass Index 37.79 (90.72 kg, 154.94 cm) rn1 MDM: 17:21 Orthostatic VS ordered. le 17:39 Yield Loss Inspector/Pulse Ox/q 15 min VS ordered. le 17:39 Accucheck ordered. le 17:39 IV Saline Lock ordered. le 17:39 Rhythm Strip to chart ordered. le 17:40 Basic Metabolic Profile Ordered. EDMS 17:40 CBC with Diff Ordered. EDMS 17:40 Thyroid Stimulating Hormone Ordered. EDMS 17:40 Troponin Ordered. EDMS 17:42 Chest, 2 View (pa\E\lat) Ordered. EDMS 17:42 ECG WITH READING ER PHYS+CARDIAG ordered. EDMS 17:53 NS 0.9% 1000 ml IV at bolus once ordered. le 17:53 diphenhydrAMINE 25 mg IVP once ordered. le 17:53 Metoclopramide 20 mg IV at 80 mg/hr once over 15 mins ordered. le 17:54 CT Head Without Contrast Ordered. EDMS 17:55 Urine Toxicology Ordered. EDMS 17:55 ETOH Ordered. EDMS 18:[address] [facility] Payment Agreement was scanned into [employer] and attached to record. gjb 18:20 Financial registration complete. gjb 19:41 Basic Metabolic Profile Reviewed. le 19:41 CBC with Diff Reviewed. le 19:41 Thyroid Stimulating Hormone Reviewed. le 19:41 Troponin Reviewed. le 19:41 Urine Toxicology Reviewed. le 19:41 ETOH Reviewed. le 19:41 Chest, 2 View (pa\E\lat) Reviewed. le 19:41 CT Head Without Contrast Reviewed. le 19:45 ketorolac 30 mg IVP once ordered. le 19:45 Dexamethasone 6 mg IV at bolus once ordered. le 19:46 Magnesium Sulfate 1 grams IVPB once over 1 hrs; administer over at least 1 hour ordered.le 10/14 08:04 T-Sheet-- Draft Copy was scanned into [employer] and attached to record. [place] 11:58 ECG/EKG was scanned into [employer] and attached to record. gb Administered Medications: 10/13 18:15 Drug: NS 0.9% 1000 ml [sodium chloride 0.9 % intravenous solution] Route: IV; Rate: jo3 bolus; Site: left antecubital; 19:39 Follow up: IV Status: Completed infusion; IV Intake: 1000ml tm5 18:15 Drug: diphenhydrAMINE 25 mg [diphenhydramine 50 mg/mL injection solution (0.5 mL)] jo3 Route: IVP; Site: left antecubital; 19:38 Follow up: Response: No Adverse Reaction tm5 18:15 Drug: Metoclopramide 20 mg [metoclopramide 5 mg/mL injection solution] Route: IV; Rate: jo3 80 mg/hr; Infused Over: 15 mins; Site: left antecubital; 20:07 Drug: ketorolac 30 mg [ketorolac 30 mg/mL (1 mL) injection solution (1 mL)] Route: IVP; tm5 Site: left antecubital; 20:40 Follow up: Response: No Adverse Reaction; Pain is decreased tm5 20:07 Drug: Dexamethasone 6 mg [dexamethasone 4 mg/mL injection solution] Route: IV; Rate: tm5 bolus; Site: left antecubital; 21:01 Follow up: Response: No Adverse Reaction tm5 20:26 Drug: Magnesium Sulfate 1 grams [magnesium sulfate 1 gram/100 mL in dextrose 5 % tm5 intravenous piggyback] {Co-Signature: [email or web address] (Shae Denton RN).} Route: IVPB; Infused Over: 1 hrs; Site: left antecubital; 21:27 Follow up: IV Status: Completed infusion; IV Intake: 100ml tm5 21:27 Follow up: Response: No Adverse Reaction tm5 Signatures: Dispatcher [employer] Jordyn Covington, Deb PorrasRN RN [email or web address] Anna Jaffe, BATCH RECORDS CLERK BATCH RECORDS CLERK Nathan Marmolejo RN RN jmb Beck, Gabriela gjb Hoffert, Sarah seh Matice, Tonya, RN RN tm5 Shae Denton RN kas2 The chart was reviewed and I authenticate all verbal orders and agree with the evaluation and treatment provided.Attachments: 18:[address] [facility] Payment Agreement gjb 10/14 08:04 T-Sheet-- Draft Copy [place] 11:58 ECG/EKChristen gb Chart Complete MTDD
--- NOTE | 2016-10-15 23:23 | EDDOCDS ---
Physician Documentation [facility] Name: Suyapa Watt Age: 36 yrs Sex: Female : 1980 Arrival Date: 10/13/2016 Time: 16:28 Bed 15 Private MD: Sb Larkin Disposition: 10/13/16 22:12 Discharged to Home/Self Care. Impression: Migraine. - Condition is Stable. - Discharge Instructions: Migraine Headache. - Medication Reconciliation, Local Pharmacy Hours form. - Follow up: Sb Larkin; When: Call to arrange an appointment; Reason: Recheck today's complaints, Continuance of care. Follow up: Private Physician; When: Call to arrange an appointment; Reason: Recheck today's complaints, Continuance of care. - Problem is an acute exacerbation. - Symptoms have improved. - Notes: Keep hydrated Follow-up, with your PCP and Neurologist at [facility], as needed Return to the ED for worsening symptoms Historical: - Allergies: bee stings (Anaphylaxis); SHELLFISH (Anaphylaxis); Zoloft (Rash); - Home Meds: 1. aspirin 325 mg Oral tab 1 tab once daily 2. Cymbalta 60 mg Oral cpDR 1 cap bid 3. epinephrine 1 mg/mL (1 mL) injection kit 4. ibuprofen 800 mg Oral tab as needed 5. multivitamin Oral tab daily 6. clonazepam 1 mg Oral tab 1 tab 3 times per day - PMHx: ADHD; Bipolar disorder; bradycardia; cervical cancer; CHF; Hypertension; ID; TIA; - PSHx: Pacemaker Insertion; Hysterectomy; Appendectomy; Cholecystectomy; Gastric Bypass; - Social history: Smoking status: Patient states former smoker of tobacco. No barriers to communication noted, The patient speaks fluent Kyrgyz, Speaks appropriately for age. - Family history: Not pertinent. - : The pt / caregiver states he / she is not on anticoagulants. Home medication list is obtained from the patient. - Exposure Risk Screening:: None identified. Vital Signs: 10/13 16:50 BP 139 / 62; Pulse 95; Resp 18; Temp 95.9; Pulse Ox 96% on R/A; Weight 90.72 kg / 200 rn1 lbs; Height 5 ft. 1 in. (154.94 cm); Pain 8/10; 17:34 BP 101 / 64 LA Supine (auto/); Pulse 88; jo3 17:36 BP 109 / 68 LA Sitting; Pulse 98; jo3 17:38 BP 117 / 71 LA Standing (auto/); Pulse 105; jo3 21:26 BP 116 / 66; Pulse 65; Resp 16; Pulse Ox 100% on R/A; tm5 22:20 BP 122 / 77; Pulse 69; Resp 18; Temp 98.3(O); Pulse Ox 99% on R/A; Pain 2/10; tm5 16:50 Body Mass Index 37.79 (90.72 kg, 154.94 cm) rn1 MDM: 17:21 Orthostatic VS ordered. le 17:39 Inspector Automatic Typewriter/Pulse Ox/q 15 min VS ordered. le 17:39 Accucheck ordered. le 17:39 IV Saline Lock ordered. le 17:39 Rhythm Strip to chart ordered. le 17:40 Basic Metabolic Profile Ordered. EDMS 17:40 CBC with Diff Ordered. EDMS 17:40 Thyroid Stimulating Hormone Ordered. EDMS 17:40 Troponin Ordered. EDMS 17:42 Chest, 2 View (pa\E\lat) Ordered. EDMS 17:42 ECG WITH READING ER PHYS+CARDIAG ordered. EDMS 17:53 NS 0.9% 1000 ml IV at bolus once ordered. le 17:53 diphenhydrAMINE 25 mg IVP once ordered. le 17:53 Metoclopramide 20 mg IV at 80 mg/hr once over 15 mins ordered. le 17:54 CT Head Without Contrast Ordered. EDMS 17:55 Urine Toxicology Ordered. EDMS 17:55 ETOH Ordered. EDMS 18:[address] [facility] Payment Agreement was scanned into ArtB[employer] and attached to record. gjb 18:20 Financial registration complete. gjb 19:41 Basic Metabolic Profile Reviewed. le 19:41 CBC with Diff Reviewed. le 19:41 Thyroid Stimulating Hormone Reviewed. le 19:41 Troponin Reviewed. le 19:41 Urine Toxicology Reviewed. le 19:41 ETOH Reviewed. le 19:41 Chest, 2 View (pa\E\lat) Reviewed. le 19:41 CT Head Without Contrast Reviewed. le 19:45 ketorolac 30 mg IVP once ordered. le 19:45 Dexamethasone 6 mg IV at bolus once ordered. le 19:46 Magnesium Sulfate 1 grams IVPB once over 1 hrs; administer over at least 1 hour ordered.le 10/14 08:04 T-Sheet-- Draft Copy was scanned into ArtBinder and attached to record. [facility] 11:58 ECG/EKG was scanned into ArtB[employer] and attached to record. gb Administered Medications: 10/13 18:15 Drug: NS 0.9% 1000 ml [sodium chloride 0.9 % intravenous solution] Route: IV; Rate: jo3 bolus; Site: left antecubital; 19:39 Follow up: IV Status: Completed infusion; IV Intake: 1000ml tm5 18:15 Drug: diphenhydrAMINE 25 mg [diphenhydramine 50 mg/mL injection solution (0.5 mL)] jo3 Route: IVP; Site: left antecubital; 19:38 Follow up: Response: No Adverse Reaction tm5 18:15 Drug: Metoclopramide 20 mg [metoclopramide 5 mg/mL injection solution] Route: IV; Rate: jo3 80 mg/hr; Infused Over: 15 mins; Site: left antecubital; 20:07 Drug: ketorolac 30 mg [ketorolac 30 mg/mL (1 mL) injection solution (1 mL)] Route: IVP; tm5 Site: left antecubital; 20:40 Follow up: Response: No Adverse Reaction; Pain is decreased tm5 20:07 Drug: Dexamethasone 6 mg [dexamethasone 4 mg/mL injection solution] Route: IV; Rate: tm5 bolus; Site: left antecubital; 21:01 Follow up: Response: No Adverse Reaction tm5 20:26 Drug: Magnesium Sulfate 1 grams [magnesium sulfate 1 gram/100 mL in dextrose 5 % tm5 intravenous piggyback] {Co-Signature: [email or web address] (Shae Denton RN).} Route: IVPB; Infused Over: 1 hrs; Site: left antecubital; 21:27 Follow up: IV Status: Completed infusion; IV Intake: 100ml tm5 21:27 Follow up: Response: No Adverse Reaction tm5 Signatures: Dispatcher MedHost Jordyn Covington, Deb PorrasRN RN fidel3 Anna Jaffe, EMPLOYEE RELATIONS ADMINISTRATOR EMPLOYEE RELATIONS ADMINISTRATOR Nathan Marmolejo RN RN jmb Beck, Gabriela gjb Hoffert, Sarah seh Matice, Tonya, RN RN tm5 Shae Denton RN kas2 The chart was reviewed and I authenticate all verbal orders and agree with the evaluation and treatment provided.Attachments: 18:[address] [facility] Payment Agreement gjb 10/14 08:04 T-Sheet-- Draft Copy [facility] 11:58 ECG/EKChristen gb Chart Complete MTDD
== END 2016-10-13 22:22 | disposition home or self-care (01) ==
LOC: M ED 16:28
DX: R55 Syncope and collapse (principal); G43.909 Migraine, unspecified, not intractable, without status migrainosus; I10 Essential (primary) hypertension; I50.9 Heart failure, unspecified; I25.2 Old myocardial infarction; F90.9 Attention-deficit hyperactivity disorder, unspecified type; R00.1 Bradycardia, unspecified; F31.9 Bipolar disorder, unspecified; Z86.73 Personal history of transient ischemic attack (TIA), and cerebral infarction without residual deficits; Z85.41 Personal history of malignant neoplasm of cervix uteri; Z98.84 Bariatric surgery status; Z95.0 Presence of cardiac pacemaker; Z87.891 Personal history of nicotine dependence; Z79.899 Other long term (current) drug therapy; Z79.82 Long term (current) use of aspirin; Z91.030 Bee allergy status; Z91.013 Allergy to seafood; Z88.8 Allergy status to other drugs, medicaments and biological substances
CPT/HCPCS: 70450; 71020; 80048; 80306; 84443; 84484; 85025; 93005; 93041; 96361; 96365; 96375; 99285; G0480; J1100; J1200; J1885; J2765; J3475

== ENCOUNTER 2016-10-16 11:19 | Emergency (ER) | payer MEDICARE, OTHER ==
--- NOTE | 2016-10-16 12:06 | REP ---
CT Head without contrast HISTORY: Facial numbness COMPARISON: 10/13/2016 There is no intraparenchymal hemorrhage, acute infarct, mass or midline shift. The ventricular system is normal in appearance. There is no extra cerebral collection. There is no fracture. Mucosal thickening is present in the left ethmoid sinus. IMPRESSION: There is no intracranial lesion. Signed by Erasmo Walters MD 10/16/2016 11:57 A
[2016-10-16 12:57] LABS: INR 1.03
[2016-10-16 13:03] LABS: BASO % 0.5 % (0.0-1.0); EOS # 0.2 K/mm3 (0.0-0.50); LARGE UNSTAINED CELL # 0.2 K/mm3 (0.0-0.4); LARGE UNSTAINED CELL % 1.8 % (0.0-4.0); LYMPH # 2.3 K/mm3 (1.5-4.5); LYMPH % 28.6 % (24.0-44.0); MEAN CORPUSCULAR HEMOGLOBIN 26.1 pg (27.0-33.0); MEAN CORPUSCULAR HGB CONC 33.1 g/dl (32.0-36.5); MEAN CORPUSCULAR VOLUME 78.8 fl (80.0-96.0); MONO # 0.4 K/mm3 (0.0-0.8); MONO % 4.8 % (0.0-5.0); NEUTROPHILS # 5.1 K/mm3 (1.8-7.7); NEUTROPHILS % 62.3 % (36.0-66.0); PLATELET COUNT, AUTOMATED 262 k/mm3 (150-450); RED CELL DISTRIBUTION WIDTH 13.4 % (11.5-14.5); WHITE BLOOD COUNT 8.2 K/mm3 (4.0-10.0)
[2016-10-16 13:07] LABS: ANION GAP 10 MEQ/L (8-16); BLOOD UREA NITROGEN 12 MG/DL (7-18); CARBON DIOXIDE LEVEL 20 MEQ/L (21-32); CHLORIDE LEVEL 113 MEQ/L (98-107); GLOMERULAR FILTRATION RATE > 60.0 (>60); GLUCOSE, FASTING 80 MG/DL (70-105); POTASSIUM SERUM 3.7 MEQ/L (3.5-5.1); SODIUM LEVEL 143 MEQ/L (136-145)
[2016-10-16] MEDS ORDERED: ASPIRIN 325 MG TAB As Ordered ONE (14:03)
--- NOTE | 2016-10-16 14:11 | EDDOCDS ---
Nurse's Notes [facility] Name: Suyapa Watt Age: 36 yrs Sex: Female : 1980 Arrival Date: 10/16/2016 Time: 11:19 Bed 2 Private MD: Dong [facility] Diagnosis: Speech disturbances, not elsewhere classified-Dysarthria, rule out CVA Presentation: 10/16 11:26 Presenting complaint: Patient states: c/o right side facial numbness, states left side ead feels prickly. c/o numbness to both hands. unknown onset. reports hx of migraines. The last date and time the patient was known to be well was was at an unknown time on an unknown date. No acute neurological deficit is noted. Adult Sepsis Screening: The patient does not have new or worsening altered mentation. Patient's respiratory rate is less than 22. Systolic blood pressure is greater than 100. Patient has a qSOFA score of 0- Negative Sepsis Screen. Suicide/Homicide risk assessment- the patient denies having any suicidal and/or homicidal ideations and does not present with any other emotional, behavioral or mental health complaints. Status: The patient is a dependent. Transition of care: patient was not received from another setting of care. 11:26 Acuity: ERIN Level 3 ead 11:26 Method Of Arrival: Walkin/Carried/Asstd ead 14:06 Pre-hospital glucose is not applicable to this patient. [facility] Triage Assessment: 11:28 The onset of the patients symptoms was less than three hours ago. General: Appears in ead no apparent distress, Behavior is appropriate for age, cooperative. Pain: Denies pain. HIV screening NA for this visit Offered previously. Neurological: Level of Consciousness is awake, alert, obeys commands, Oriented to person, place, time, Reports numbness and tingling to face and hands. Respiratory: Airway is patent Respiratory effort is even, unlabored. Derm: Skin is pink, warm & dry. ASSEMBLY ADJUSTER: 11:28 LMP N/A - Hysterectomy ead Historical: - Allergies: bee stings (Anaphylaxis); SHELLFISH (Anaphylaxis); Zoloft (Rash); - Home Meds: 1. aspirin 325 mg Oral tab 1 tab once daily 2. clonazepam 1 mg Oral tab 1 tab as needed 3. Cymbalta 60 mg Oral cpDR 1 cap bid 4. multivitamin Oral tab daily 5. epinephrine 1 mg/mL (1 mL) injection kit 6. ibuprofen 800 mg Oral tab as needed 7. ketorolac 10 mg Oral tab every 6 hours (Last dose: 10/16/2016 06:00) - PMHx: TIA; cervical cancer; Bipolar disorder; CHF; Hypertension; GA; bradycardia; ADHD; - PSHx: Pacemaker Insertion; Appendectomy; Hysterectomy; Cholecystectomy; Gastric Bypass; - Social history: Smoking status: Patient states was never smoker of tobacco. No barriers to communication noted, The patient speaks fluent Vincentian, Speaks appropriately for age. - Family history: Not pertinent. - : The pt / caregiver states he / she is not on anticoagulants. Home medication list is obtained from the patient, [employer] import data. - Exposure Risk Screening:: None identified. Screenin:52 Screening information is obtained from the patient. Fall risk: No risks identified. bcj Assistance ADL's: requires no assistance with activities of daily living. Abuse/DV Screen: The patient / caregiver reports he/she is: not in a situation that causes fear, pain or injury. Nutritional screening: No deficits noted. Advance Directives: Currently, there is no health care proxy. home support is adequate. Assessment: 12:10 General: Appears in no apparent distress, Behavior is cooperative, drowsy. srm Neurological: Level of Consciousness is awake, alert, Oriented to person, place, time, Sandfill Operator are equal bilaterally Speech is slurred, Reports numbness paresthesias weakness left side of face and lips right side feels numb as well as both hands pt was seen at [facility] yesterday for a migraine, pt speech clear, able to recall conversations we had prior about her children. Respiratory: Airway is patent Respiratory effort is even, unlabored, Respiratory pattern is regular. 12:39 General: Appears in no apparent distress. srm 13:01 General: Pt ambulated approx 100 ft to and from the bathroom independently without jf3 difficulty. Pt showed no signs of weakness, droop, or favoring to one side. 13:52 General: Appears in no apparent distress, comfortable, Behavior is cooperative. Pain: bcj Location: right leg and left leg Pain currently is 6 out of 10 on a pain scale. Neurological: Level of Consciousness is awake, alert, Oriented to person, place, time, Sandfill Operator are equal bilaterally Moves all extremities. Cardiovascular: Rhythm is sinus rhythm. Respiratory: Airway is patent Respiratory effort is even. Vital Signs: 11:21 BP 149 / 79; Pulse 69; Resp 18 S; Temp 97.1(O); Pulse Ox 100% on R/A; Weight 90.72 kg dd6 (R); Height 5 ft. 2 in. (157.48 cm) (R); 12:10 BP 119 / 76 (auto/); hs1 12:11 Pulse 64 MON; Pulse Ox 98% ; hs1 12:24 BP 105 / 64 (auto/); mk4 12:24 Pulse 60 MON; Pulse Ox 99% ; mk4 12:39 BP 132 / 84 (auto/); mk4 12:39 Pulse 60 MON; Pulse Ox 100% ; mk4 12:58 Weight 90.72 kg (M); ct3 12:58 Body Mass Index 36.58 (90.72 kg, 157.48 cm) ct3 Vitals: 11:21 Log In Time: October 16, 2016 at 11:19. RN notified that patient meets Red Flag dd6 criteria. 14:05 Glucose Measurement D-stick deferred by provider. bcj Visual Acuity: 13:01 Left Eye Visual acuity 20/100, ; Right Eye Visual acuity 20/80, ; Both Eyes Visual mk4 acuity 20/80; Without Lenses; pt wears glasses and didnt have them with her ED Course: 11:20 Patient visited by Collin Echeverria PCA. dd6 11:20 Patient moved to Waiting dd6 11:21 Dong [facility] is Private Physician. dd6 11:23 Patient moved to Pre RCE dd6 11:27 Triage Initiated ead 11:33 Patient moved to I5 / M5 ar3 11:44 [facility] ef1 11:44 Priyanka Mendez MD is Attending Physician. ef1 11:44 Patient visited by Caitie Silverman PA-C. ef1 12:06 Patient moved to 21 br1 12:08 EKG done. (by ED staff). Reviewed by Priyanka Mendez MD. dem1 12:10 Pt greeted and oriented to ED. Patient advised of names of staff involved in care, sew location of call [place], wait times and NPO status. Patient has correct armband on for positive identification. Placed in gown. Bed in low position. Side rails up X2. Repositioned patient. electronic device monitor on. Pulse ox on. NIBP on. 12:11 Patient visited by Lilian Howell. sew 12:12 Patient visited by Maurice Heart. dem1 12:33 CT Head Without Contrast Returned. EDMS 12:35 Shyam Moss MD is Attending Physician. br1 12:38 Basic Metabolic Profile Sent. srm 12:38 CBC with Diff Sent. srm 12:38 Partial Thromboplastin Time Sent. srm 12:38 Prothrombin Time Profile\E\INR Sent. srm 12:38 Type & Screen Sent. srm 12:45 Patient visited by Shyam Moss MD. br1 12:57 Patient moved to 2 kcs 12:58 Patient visited by Michelle Grande PCA. ct3 12:58 Assisted to bathroom. ct3 13:02 Patient visited by Eloina Guevara RN. hs1 13:43 [facility] Payment Agreement was scanned into CloudTags and attached to record. lg 13:52 The patient / caregiver is instructed regarding the plan of care and ED course. bcj 13:52 Inserted saline lock: 22 gauge in right hand. bcj 14:01 Patient visited by Tree Farley RN. bcj 14:05 No procedures done that require assistance. bcj 14:10 Patient visited by Tree Farley RN. [facility] Point of Care Testing: Blood Glucose: 13:00 Blood Glucose: 80 mg/dL; hs1 Ranges: Order Results: Lab Order: Basic Metabolic Profile; SPEC'M 10/16/16 12:36 Test: GLUCOSE, FASTING; Value: 80; Range: 70-105; Units: MG/DL; Status: F Test: BLOOD UREA NITROGEN; Value: 12; Range: 7-18; Units: MG/DL; Status: F Test: CREATININE FOR GFR; Value: 0.90; Range: 0.55-1.02; Units: MG/DL; Status: F Test: GLOMERULAR FILTRATION RATE; Value: > 60.0; Range: >60; Status: F Test: SODIUM LEVEL; Value: 143; Range: 136-145; Units: MEQ/L; Status: F Test: POTASSIUM SERUM; Value: 3.7; Range: 3.5-5.1; Units: MEQ/L; Status: F Test: CHLORIDE LEVEL; Value: 113; Range: 98-107; Abnormal: Above high normal; Units: MEQ/L; Status: F Test: CARBON DIOXIDE LEVEL; Value: 20; Range: 21-32; Abnormal: Below low normal; Units: MEQ/L; Status: F Test: ANION GAP; Value: 10; Range: 8-16; Units: MEQ/L; Status: F Test: CALCIUM LEVEL; Value: 8.0; Range: 8.5-10.1; Abnormal: Below low normal; Units: MG/DL; Status: F Test Note: ; Units are mL/min/1.73 m2 Chronic Kidney Disease Staging per NKF: Stage I & II GFR >=60 Normal to Mildly Decreased Stage III GFR 30-59 Moderately Decreased Stage IV GFR 15-29 Severely Decreased Stage V GFR <15 Very Little GFR Left ESRD GFR <15 on AIRPLANE COVER MAKER Lab Order: CBC with Diff; SPEC'M 10/16/16 12:36 Test: WHITE BLOOD COUNT; Value: 8.2; Range: 4.0-10.0; Units: K/mm3; Status: F Test: RED BLOOD COUNT; Value: 3.89; Range: 4.00-5.40; Abnormal: Below low normal; Units: M/mm3; Status: F Test: HEMOGLOBIN; Value: 10.1; Range: 12.0-16.0; Abnormal: Below low normal; Units: g/dl; Status: F Test: HEMATOCRIT; Value: 30.7; Range: 36.0-47.0; Abnormal: Below low normal; Units: %; Status: F Test: MEAN CORPUSCULAR VOLUME; Value: 78.8; Range: 80.0-96.0; Abnormal: Below low normal; Units: fl; Status: F Test: MEAN CORPUSCULAR HEMOGLOBIN; Value: 26.1; Range: 27.0-33.0; Abnormal: Below low normal; Units: pg; Status: F Test: MEAN CORPUSCULAR HGB CONC; Value: 33.1; Range: 32.0-36.5; Units: g/dl; Status: F Test: RED CELL DISTRIBUTION WIDTH; Value: 13.4; Range: 11.5-14.5; Units: %; Status: F Test: PLATELET COUNT, AUTOMATED; Value: 262; Range: 150-450; Units: k/mm3; Status: F Test: NEUTROPHILS %; Value: 62.3; Range: 36.0-66.0; Units: %; Status: F Test: LYMPH %; Value: 28.6; Range: 24.0-44.0; Units: %; Status: F Test: MONO %; Value: 4.8; Range: 0.0-5.0; Units: %; Status: F Test: EOS %; Value: 2.0; Range: 0.0-3.0; Units: %; Status: F Test: BASO %; Value: 0.5; Range: 0.0-1.0; Units: %; Status: F Test: LARGE UNSTAINED CELL %; Value: 1.8; Range: 0.0-4.0; Units: %; Status: F Test: NEUTROPHILS #; Value: 5.1; Range: 1.8-7.7; Units: K/mm3; Status: F Test: LYMPH #; Value: 2.3; Range: 1.5-4.5; Units: K/mm3; Status: F Test: MONO #; Value: 0.4; Range: 0.0-0.8; Units: K/mm3; Status: F Test: EOS #; Value: 0.2; Range: 0.0-0.50; Units: K/mm3; Status: F Test: BASO #; Value: 0.0; Range: 0.0-0.2; Units: K/mm3; Status: F Test: LARGE UNSTAINED CELL #; Value: 0.2; Range: 0.0-0.4; Units: K/mm3; Status: F Lab Order: Partial Thromboplastin Time; SPEC'M 10/16/16 12:36 Test: PARTIAL THROMBOPLASTIN TIME; Value: 29.7; Range: 26.6-37.1; Units: SECONDS; Status: F Lab Order: Prothrombin Time Profile\E\INR; SPEC'M 10/16/16 12:36 Test: PROTHROMBIN TIME; Value: 13.6; Range: 12.3-14.5; Units: SECONDS; Status: F Test: INR; Value: 1.03; Status: F Test Note: ; THERAPUTIC HUMAN INR VALUES INDICATIONS NORMAL RANGES PROPHYLAXIS/TREATMENT OF: VENOUS THROMBOSIS 2.0-3.0 PULMONARY EMBOLISM 2.0-3.0 PREVENTION OF SYSTEMIC EMBOLISM FROM: TISSUE HEART VALVES 2.0-3.0 ACUTE MYOCARDIAL INFARCTION 2.0-3.0 VALVULAR HEART DISEASE 2.0-3.0 ATRIAL FIBRILLATION 2.0-3.0 MECHANICAL VALVES(HIGH RISK) 2.5-3.5 RECURRENT MYOCARDIAL INFARCTION 2.5-3.5 Lab Order: Type & Screen; SPEC'10/16/16 12:36 Test: BLOOD TYPE; Value: O POS; Status: F Test: AB SCREEN (INDIRECT MINESH)GEL; Value: NEGATIVE; Status: F Lab Order: Fingerstick Blood Sugar; SPEC'M 10/16/16 12:59 Test: BEDSIDE GLUCOSE; Value: 80; Range: 70-105; Units: MG/DL; Status: F Radiology Order: CT Head Without Contrast Test: CT Head Without Contrast REASON FOR EXAMINATION: facial, upper extremity numbness; CT Head without contrast; ; HISTORY: Facial numbness; ; COMPARISON: 10/13/2016; ; There is no intraparenchymal hemorrhage, acute infarct, mass or midline shift.; The ventricular system is normal in appearance. There is no extra cerebral; collection. There is no fracture. Mucosal thickening is present in the left; ethmoid sinus.; ; IMPRESSION: There is no intracranial lesion.; ; ; ; ; Signed by; Erasmo Walters MD 10/16/2016 11:57 A; Outcome: 13:38 ER care complete, transfer ordered by Provider. br1 14:02 Discharge Assessment: patient administered narcotics - no. The following High Risk [facility] Discharge criteria are identified: None. Transferred to [facility]. by EMS ground [facility] ambulance report to accompanying personnel Phan Madison EMT- P Lewis Skinner EMT. Condition: stable. CT Study completed. Property :Personal belongings accompany Pt. 14:10 Patient left the ED. [facility] Signatures: Dispatcher MedHost Kathrin Alaniz RN RN kcs Johnson, Bruce, RN RN bcj Michelson, Staci, RN RN srm Ganter, LoriLee, Ryan Reg Shyam Chavez MD MD br1 Collin Echeverria PCA PCA dd6 Caitie Silverman, PA-C PA-C ef1 Carolyn Eduardo, FILE MACHINE OPERATOR FILE MACHINE OPERATOR ar3 Eloina Guevara, RN RN hs1 Michelle Grande, FILE MACHINE OPERATOR FILE MACHINE OPERATOR ct3 Dc Heartbryantdalila dem1 Dante, Kay Christianson, RN RN mk4 Edel Angela,RN RN ead Regis Agee,CALLUM NOLEN jf3 Corrections: (The following items were deleted from the chart) 11:45 11:26 Presenting complaint: Patient states: c/o right side facial numbness, states left ead side feels prickly. c/o numbness to both hands. unknown onset. reports hx of migraines, states does not feel similar. ead 12:43 12:10 Neurological: Level of Consciousness is awake, alert, Oriented to person, place, mk4 time, Sandfill Operator are equal bilaterally Speech is slurred, Reports numbness paresthesias weakness left side of face and tongue. srm 13:03 13:00 General: Pt ambulated approx 100 ft to and from the bathroom independently 3 without difficulty. Pt showed no signs of weakness, droop, or favoring to one side. hs1 MTDD
--- NOTE | 2016-10-16 14:11 | EDDOCDS ---
Physician Documentation [facility] Name: Suyapa Watt Age: 36 yrs Sex: Female : 1980 Arrival Date: 10/16/2016 Time: 11:19 Bed 2 Private MD: Dong [facility] Disposition: 10/16/16 13:38 Transfer ordered to [facility]. Diagnosis is Speech disturbances, not elsewhere classified - Dysarthria, rule out CVA. - Reason for transfer: Higher level of care. - Accepting physician is Dr. Major. - Condition is Stable. - Problem is new. - Symptoms are unchanged. Historical: - Allergies: bee stings (Anaphylaxis); SHELLFISH (Anaphylaxis); Zoloft (Rash); - Home Meds: 1. aspirin 325 mg Oral tab 1 tab once daily 2. clonazepam 1 mg Oral tab 1 tab as needed 3. Cymbalta 60 mg Oral cpDR 1 cap bid 4. multivitamin Oral tab daily 5. epinephrine 1 mg/mL (1 mL) injection kit 6. ibuprofen 800 mg Oral tab as needed 7. ketorolac 10 mg Oral tab every 6 hours (Last dose: 10/16/2016 06:00) - PMHx: TIA; cervical cancer; Bipolar disorder; CHF; Hypertension; AL; bradycardia; ADHD; - PSHx: Pacemaker Insertion; Appendectomy; Hysterectomy; Cholecystectomy; Gastric Bypass; - Social history: Smoking status: Patient states was never smoker of tobacco. No barriers to communication noted, The patient speaks fluent Swazi, Speaks appropriately for age. - Family history: Not pertinent. - : The pt / caregiver states he / she is not on anticoagulants. Home medication list is obtained from the patient, [employer] import data. - Exposure Risk Screening:: None identified. ZINC FURNACE CHARGER: 10/16 11:28 LMP N/A - Hysterectomy ead Vital Signs: 11:21 BP 149 / 79; Pulse 69; Resp 18 S; Temp 97.1(O); Pulse Ox 100% on R/A; Weight 90.72 kg / dd6 200 lbs (R); Height 5 ft. 2 in. (157.48 cm) (R); 12:10 BP 119 / 76 (auto/); hs1 12:11 Pulse 64 MON; Pulse Ox 98% ; hs1 12:24 BP 105 / 64 (auto/); mk4 12:24 Pulse 60 MON; Pulse Ox 99% ; mk4 12:39 BP 132 / 84 (auto/); mk4 12:39 Pulse 60 MON; Pulse Ox 100% ; mk4 12:58 Weight 90.72 kg / 200 lbs (M); ct3 12:58 Body Mass Index 36.58 (90.72 kg, 157.48 cm) ct3 Visual Acuity: 13:01 Left Eye Visual acuity 20/100, ; Right Eye Visual acuity 20/80, ; Both Eyes Visual mk4 acuity 20/80; Without Lenses; pt wears glasses and didnt have them with her MDM: 11:39 CT Head Without Contrast Ordered. EDMS 12:00 Financial registration complete. lg 12:04 RN interventions must not delay CT ordered. br1 12:04 Grinder Operator External Tool/Pulse Ox/q 15 min VS ordered. br1 12:04 Accucheck ordered. br1 12:04 IV Saline Lock ordered. br1 12:04 Neuro VS q 15 Minutes ordered. br1 12:04 Patient must be on CC stretcher and weighed via bed scale ordered. br1 12:04 Rhythm Strip to chart ordered. br1 12:04 Stroke assessment pack to bedside ordered. br1 12:05 Basic Metabolic Profile Ordered. EDMS 12:05 CBC with Diff Ordered. EDMS 12:05 Partial Thromboplastin Time Ordered. EDMS 12:05 Prothrombin Time Profile\E\INR Ordered. EDMS 12:05 Type & Screen Ordered. EDMS 12:05 ECG WITH READING ER PHYS+CARDIAG ordered. EDMS 12:46 Visual Acuity ordered. br1 12:49 BED REQUEST+ADM ordered. EDMS 12:57 Consult [facility]: Telemedicine Stroke Attending ordered. br1 13:01 Partial Thromboplastin Time Reviewed. br1 13:01 Prothrombin Time Profile\E\INR Reviewed. br1 13:01 CT Head Without Contrast Reviewed. br1 13:06 Fingerstick Blood Sugar Ordered. EDMS 13:37 Aspirin 325 mg PO once ordered. br1 13:43 [facility] Payment Agreement was scanned into [employer] and attached to record. lg 14:00 Consult [facility]: Telemedicine Stroke Attending complete. kcs Point of Care Testing: Blood Glucose: 13:00 Blood Glucose: 80 mg/dL; hs1 Ranges: Signatures: Dispatcher MedHost EDMS [facility], Kathrin, RN RN Tree Acosta RN RN bcj Michelson, Staci, RN RN Alycia Cary, Reg Reg lg Shyam Moss MD MD br1 Edel Angela RN RN ead The chart was reviewed and I authenticate all verbal orders and agree with the evaluation and treatment provided.Attachments: 13:43 [facility] Payment Agreement lg MTDD
--- NOTE | 2016-10-17 08:04 | ECGEPIP ---
Stationary ECG Study [facility] - ED Test Date: 2016-10-16 Pat Name: ADRI KESSLER Department: Room: - Gender: F Last Waxer: ranulfo : 1980 Requested By: SUSAN Simons Order Number: [id number] Reading MD: Lilian Cuellar Measurements Intervals [place] Rate: 65 P: 29 VT: 167 QRS: -4 QRSD: 76 T: 21 QT: 372 QTc: 388 Interpretive Statements SINUS RHYTHM SIMILAR 10/13/16 Electronically Signed On 10-17-2016 8:04:02 EST by Lilian Cuellar
--- NOTE | 2016-10-18 15:11 | EDDOCDS ---
Physician Documentation [facility] Name: Suyapa Watt Age: 36 yrs Sex: Female : 1980 Arrival Date: 10/16/2016 Time: 11:19 Bed 2 Private MD: Dong [facility] Disposition: 10/16/16 13:38 Transfer ordered to [facility]. Diagnosis is Speech disturbances, not elsewhere classified - Dysarthria, rule out CVA. - Reason for transfer: Higher level of care. - Accepting physician is Dr. Major. - Condition is Stable. - Problem is new. - Symptoms are unchanged. Historical: - Allergies: bee stings (Anaphylaxis); SHELLFISH (Anaphylaxis); Zoloft (Rash); - Home Meds: 1. aspirin 325 mg Oral tab 1 tab once daily 2. clonazepam 1 mg Oral tab 1 tab as needed 3. Cymbalta 60 mg Oral cpDR 1 cap bid 4. multivitamin Oral tab daily 5. epinephrine 1 mg/mL (1 mL) injection kit 6. ibuprofen 800 mg Oral tab as needed 7. ketorolac 10 mg Oral tab every 6 hours (Last dose: 10/16/2016 06:00) - PMHx: TIA; cervical cancer; Bipolar disorder; CHF; Hypertension; ME; bradycardia; ADHD; - PSHx: Pacemaker Insertion; Appendectomy; Hysterectomy; Cholecystectomy; Gastric Bypass; - Social history: Smoking status: Patient states was never smoker of tobacco. No barriers to communication noted, The patient speaks fluent Gibraltarian, Speaks appropriately for age. - Family history: Not pertinent. - : The pt / caregiver states he / she is not on anticoagulants. Home medication list is obtained from the patient, [employer] import data. - Exposure Risk Screening:: None identified. PRODUCT SCIENTIST: 10/16 11:28 LMP N/A - Hysterectomy ead Vital Signs: 11:21 BP 149 / 79; Pulse 69; Resp 18 S; Temp 97.1(O); Pulse Ox 100% on R/A; Weight 90.72 kg / dd6 200 lbs (R); Height 5 ft. 2 in. (157.48 cm) (R); 12:10 BP 119 / 76 (auto/); hs1 12:11 Pulse 64 MON; Pulse Ox 98% ; hs1 12:24 BP 105 / 64 (auto/); mk4 12:24 Pulse 60 MON; Pulse Ox 99% ; mk4 12:39 BP 132 / 84 (auto/); mk4 12:39 Pulse 60 MON; Pulse Ox 100% ; mk4 12:58 Weight 90.72 kg / 200 lbs (M); ct3 12:58 Body Mass Index 36.58 (90.72 kg, 157.48 cm) ct3 Visual Acuity: 13:01 Left Eye Visual acuity 20/100, ; Right Eye Visual acuity 20/80, ; Both Eyes Visual mk4 acuity 20/80; Without Lenses; pt wears glasses and didnt have them with her MDM: 11:39 CT Head Without Contrast Ordered. EDMS 12:00 Financial registration complete. lg 12:04 RN interventions must not delay CT ordered. br1 12:04 Dupligraph Operator/Pulse Ox/q 15 min VS ordered. br1 12:04 Accucheck ordered. br1 12:04 IV Saline Lock ordered. br1 12:04 Neuro VS q 15 Minutes ordered. br1 12:04 Patient must be on CC stretcher and weighed via bed scale ordered. br1 12:04 Rhythm Strip to chart ordered. br1 12:04 Stroke assessment pack to bedside ordered. br1 12:05 Basic Metabolic Profile Ordered. EDMS 12:05 CBC with Diff Ordered. EDMS 12:05 Partial Thromboplastin Time Ordered. EDMS 12:05 Prothrombin Time Profile\E\INR Ordered. EDMS 12:05 Type & Screen Ordered. EDMS 12:05 ECG WITH READING ER PHYS+CARDIAG ordered. EDMS 12:46 Visual Acuity ordered. br1 12:49 BED REQUEST+ADM ordered. EDMS 12:57 Consult [facility]: Telemedicine Stroke Attending ordered. br1 13:01 Partial Thromboplastin Time Reviewed. br1 13:01 Prothrombin Time Profile\E\INR Reviewed. br1 13:01 CT Head Without Contrast Reviewed. br1 13:06 Fingerstick Blood Sugar Ordered. EDMS 13:37 Aspirin 325 mg PO once ordered. br1 13:43 [facility] Payment Agreement was scanned into [employer] and attached to record. lg 14:00 Consult [facility]: Telemedicine Stroke Attending complete. kcs 10/17 11:03 T-Sheet-- Draft Copy was scanned into [employer] and attached to record. gb 11:03 ECG/EKG was scanned into [employer] and attached to record. Point of Care Testing: Blood Glucose: 10/16 13:00 Blood Glucose: 80 mg/dL; hs1 Ranges: Signatures: Dispatcher [employer] Kathrin Alaniz, RN RN Tree Acosta RN RN bcj Michelson, Staci, RN RN [facility] Emmarussell, Jordyn, Reg Reg gb Alycia Malik, Reg Reg lg Shyam Moss MD MD brEdel Tillman,CALLUM crawford The chart was reviewed and I authenticate all verbal orders and agree with the evaluation and treatment provided.Attachments: 13:43 [facility] Payment Agreement lg 10/17 11:03 T-Sheet-- Draft Copy 11:03 ECG/EKG Chart Complete MTDD
--- NOTE | 2016-10-18 15:11 | EDDOCDS ---
Physician Documentation [facility] Name: Suyapa Watt Age: 36 yrs Sex: Female : 1980 Arrival Date: 10/16/2016 Time: 11:19 Bed 2 Private MD: Dong [facility] Disposition: 10/16/16 13:38 Transfer ordered to [facility]. Diagnosis is Speech disturbances, not elsewhere classified - Dysarthria, rule out CVA. - Reason for transfer: Higher level of care. - Accepting physician is Dr. Major. - Condition is Stable. - Problem is new. - Symptoms are unchanged. Historical: - Allergies: bee stings (Anaphylaxis); SHELLFISH (Anaphylaxis); Zoloft (Rash); - Home Meds: 1. aspirin 325 mg Oral tab 1 tab once daily 2. clonazepam 1 mg Oral tab 1 tab as needed 3. Cymbalta 60 mg Oral cpDR 1 cap bid 4. multivitamin Oral tab daily 5. epinephrine 1 mg/mL (1 mL) injection kit 6. ibuprofen 800 mg Oral tab as needed 7. ketorolac 10 mg Oral tab every 6 hours (Last dose: 10/16/2016 06:00) - PMHx: TIA; cervical cancer; Bipolar disorder; CHF; Hypertension; VA; bradycardia; ADHD; - PSHx: Pacemaker Insertion; Appendectomy; Hysterectomy; Cholecystectomy; Gastric Bypass; - Social history: Smoking status: Patient states was never smoker of tobacco. No barriers to communication noted, The patient speaks fluent Marshallese, Speaks appropriately for age. - Family history: Not pertinent. - : The pt / caregiver states he / she is not on anticoagulants. Home medication list is obtained from the patient, [employer] import data. - Exposure Risk Screening:: None identified. 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 2 in. (157.48 cm) (R); 12:10 BP 119 / 76 (auto/); hs1 12:11 Pulse 64 MON; Pulse Ox 98% ; hs1 12:24 BP 105 / 64 (auto/); mk4 12:24 Pulse 60 MON; Pulse Ox 99% ; mk4 12:39 BP 132 / 84 (auto/); mk4 12:39 Pulse 60 MON; Pulse Ox 100% ; mk4 12:58 Weight 90.72 kg / 200 lbs (M); ct3 12:58 Body Mass Index 36.58 (90.72 kg, 157.48 cm) ct3 Visual Acuity: 13:01 Left Eye Visual acuity 20/100, ; Right Eye Visual acuity 20/80, ; Both Eyes Visual mk4 acuity 20/80; Without Lenses; pt wears glasses and didnt have them with her MDM: 11:39 CT Head Without Contrast Ordered. EDMS 12:00 Financial registration complete. lg 12:04 RN interventions must not delay CT ordered. br1 12:04 Deputy Sheriff Lieutenant/Pulse Ox/q 15 min VS ordered. br1 12:04 Accucheck ordered. br1 12:04 IV Saline Lock ordered. br1 12:04 Neuro VS q 15 Minutes ordered. br1 12:04 Patient must be on CC stretcher and weighed via bed scale ordered. br1 12:04 Rhythm Strip to chart ordered. br1 12:04 Stroke assessment pack to bedside ordered. br1 12:05 Basic Metabolic Profile Ordered. EDMS 12:05 CBC with Diff Ordered. EDMS 12:05 Partial Thromboplastin Time Ordered. EDMS 12:05 Prothrombin Time Profile\E\INR Ordered. EDMS 12:05 Type & Screen Ordered. EDMS 12:05 ECG WITH READING ER PHYS+CARDIAG ordered. EDMS 12:46 Visual Acuity ordered. br1 12:49 BED REQUEST+ADM ordered. EDMS 12:57 Consult [facility]: Telemedicine Stroke Attending ordered. br1 13:01 Partial Thromboplastin Time Reviewed. br1 13:01 Prothrombin Time Profile\E\INR Reviewed. br1 13:01 CT Head Without Contrast Reviewed. br1 13:06 Fingerstick Blood Sugar Ordered. EDMS 13:37 Aspirin 325 mg PO once ordered. br1 13:43 [facility] Payment Agreement was scanned into [employer] and attached to record. lg 14:00 Consult [facility]: Telemedicine Stroke Attending complete. kcs 10/17 11:03 T-Sheet-- Draft Copy was scanned into [employer] and attached to record. gb 11:03 ECG/EKG was scanned into [employer] and attached to record. Point of Care Testing: Blood Glucose: 10/16 13:00 Blood Glucose: 80 mg/dL; hs1 Ranges: Signatures: Dispatcher [employer] Kathrin Alaniz, RN RN Tree Acosta RN RN bcj Michelson, Staci, RN RN [facility] Emmarussell, Jordyn, Reg Reg gb lAycia Malik, Reg Reg lg Shyam Moss MD MD brEdel Tillman,CALLUM crawford The chart was reviewed and I authenticate all verbal orders and agree with the evaluation and treatment provided.Attachments: 13:43 [facility] Payment Agreement lg 10/17 11:03 T-Sheet-- Draft Copy 11:03 ECG/EKG Chart Complete MTDD
--- NOTE | 2016-10-18 15:11 | EDDOCDS ---
Nurse's Notes [facility] Name: Suyapa Kessler Age: 36 yrs Sex: Female : 1980 Arrival Date: 10/16/2016 Time: 11:19 Bed 2 Private MD: Dong [facility] Diagnosis: Speech disturbances, not elsewhere classified-Dysarthria, rule out CVA Presentation: 10/16 11:26 Presenting complaint: Patient states: c/o right side facial numbness, states left side ead feels prickly. c/o numbness to both hands. unknown onset. reports hx of migraines. The last date and time the patient was known to be well was was at an unknown time on an unknown date. No acute neurological deficit is noted. Adult Sepsis Screening: The patient does not have new or worsening altered mentation. Patient's respiratory rate is less than 22. Systolic blood pressure is greater than 100. Patient has a qSOFA score of 0- Negative Sepsis Screen. Suicide/Homicide risk assessment- the patient denies having any suicidal and/or homicidal ideations and does not present with any other emotional, behavioral or mental health complaints. Status: The patient is a dependent. Transition of care: patient was not received from another setting of care. 11:26 Acuity: ERIN Level 3 ead 11:26 Method Of Arrival: Walkin/Carried/Asstd ead 14:06 Pre-hospital glucose is not applicable to this patient. [facility] Triage Assessment: 11:28 The onset of the patients symptoms was less than three hours ago. General: Appears in ead no apparent distress, Behavior is appropriate for age, cooperative. Pain: Denies pain. HIV screening NA for this visit Offered previously. Neurological: Level of Consciousness is awake, alert, obeys commands, Oriented to person, place, time, Reports numbness and tingling to face and hands. Respiratory: Airway is patent Respiratory effort is even, unlabored. Derm: Skin is pink, warm & dry. WASHER HAND: 11:28 LMP N/A - Hysterectomy ead Historical: - Allergies: bee stings (Anaphylaxis); SHELLFISH (Anaphylaxis); Zoloft (Rash); - Home Meds: 1. aspirin 325 mg Oral tab 1 tab once daily 2. clonazepam 1 mg Oral tab 1 tab as needed 3. Cymbalta 60 mg Oral cpDR 1 cap bid 4. multivitamin Oral tab daily 5. epinephrine 1 mg/mL (1 mL) injection kit 6. ibuprofen 800 mg Oral tab as needed 7. ketorolac 10 mg Oral tab every 6 hours (Last dose: 10/16/2016 06:00) - PMHx: TIA; cervical cancer; Bipolar disorder; CHF; Hypertension; ME; bradycardia; ADHD; - PSHx: Pacemaker Insertion; Appendectomy; Hysterectomy; Cholecystectomy; Gastric Bypass; - Social history: Smoking status: Patient states was never smoker of tobacco. No barriers to communication noted, The patient speaks fluent Cuban, Speaks appropriately for age. - Family history: Not pertinent. - : The pt / caregiver states he / she is not on anticoagulants. Home medication list is obtained from the patient, [employer] import data. - Exposure Risk Screening:: None identified. Screenin:52 Screening information is obtained from the patient. Fall risk: No risks identified. bcj Assistance ADL's: requires no assistance with activities of daily living. Abuse/DV Screen: The patient / caregiver reports he/she is: not in a situation that causes fear, pain or injury. Nutritional screening: No deficits noted. Advance Directives: Currently, there is no health care proxy. home support is adequate. Assessment: 12:10 General: Appears in no apparent distress, Behavior is cooperative, drowsy. srm Neurological: Level of Consciousness is awake, alert, Oriented to person, place, time, Capability Lead are equal bilaterally Speech is slurred, Reports numbness paresthesias weakness left side of face and lips right side feels numb as well as both hands pt was seen at [facility] yesterday for a migraine, pt speech clear, able to recall conversations we had prior about her children. Respiratory: Airway is patent Respiratory effort is even, unlabored, Respiratory pattern is regular. 12:39 General: Appears in no apparent distress. srm 13:01 General: Pt ambulated approx 100 ft to and from the bathroom independently without jf3 difficulty. Pt showed no signs of weakness, droop, or favoring to one side. 13:52 General: Appears in no apparent distress, comfortable, Behavior is cooperative. Pain: bcj Location: right leg and left leg Pain currently is 6 out of 10 on a pain scale. Neurological: Level of Consciousness is awake, alert, Oriented to person, place, time, Capability Lead are equal bilaterally Moves all extremities. Cardiovascular: Rhythm is sinus rhythm. Respiratory: Airway is patent Respiratory effort is even. Vital Signs: 11:21 BP 149 / 79; Pulse 69; Resp 18 S; Temp 97.1(O); Pulse Ox 100% on R/A; Weight 90.72 kg dd6 (R); Height 5 ft. 2 in. (157.48 cm) (R); 12:10 BP 119 / 76 (auto/); hs1 12:11 Pulse 64 MON; Pulse Ox 98% ; hs1 12:24 BP 105 / 64 (auto/); mk4 12:24 Pulse 60 MON; Pulse Ox 99% ; mk4 12:39 BP 132 / 84 (auto/); mk4 12:39 Pulse 60 MON; Pulse Ox 100% ; mk4 12:58 Weight 90.72 kg (M); ct3 12:58 Body Mass Index 36.58 (90.72 kg, 157.48 cm) ct3 Vitals: 11:21 Log In Time: October 16, 2016 at 11:19. RN notified that patient meets Red Flag dd6 criteria. 14:05 Glucose Measurement D-stick deferred by provider. bcj Visual Acuity: 13:01 Left Eye Visual acuity 20/100, ; Right Eye Visual acuity 20/80, ; Both Eyes Visual mk4 acuity 20/80; Without Lenses; pt wears glasses and didnt have them with her ED Course: 11:20 Patient visited by Collin Echeverria PCA. dd6 11:20 Patient moved to Waiting dd6 11:21 Dong [facility] is Private Physician. dd6 11:23 Patient moved to Pre RCE dd6 11:27 Triage Initiated ead 11:33 Patient moved to I5 / M5 ar3 11:44 [facility] ef1 11:44 Priyanka Mendez MD is Attending Physician. ef1 11:44 Patient visited by Caitie Silverman PA-C. ef1 12:06 Patient moved to 21 br1 12:08 EKG done. (by ED staff). Reviewed by Priyanka Mendez MD. dem1 12:10 Pt greeted and oriented to ED. Patient advised of names of staff involved in care, sew location of call [place], wait times and NPO status. Patient has correct armband on for positive identification. Placed in gown. Bed in low position. Side rails up X2. Repositioned patient. anatomic pathologist on. Pulse ox on. NIBP on. 12:11 Patient visited by Lilian Howell. sew 12:12 Patient visited by Maurice Heart. dem1 12:33 CT Head Without Contrast Returned. EDMS 12:35 Susan Moss MD is Attending Physician. br1 12:38 Basic Metabolic Profile Sent. srm 12:38 CBC with Diff Sent. srm 12:38 Partial Thromboplastin Time Sent. srm 12:38 Prothrombin Time Profile\E\INR Sent. srm 12:38 Type & Screen Sent. srm 12:45 Patient visited by Susan Moss MD. br1 12:57 Patient moved to 2 kcs 12:58 Patient visited by Michelle Grande PCA. ct3 12:58 Assisted to bathroom. ct3 13:02 Patient visited by Eloina Guevara RN. hs1 13:43 [facility] Payment Agreement was scanned into [employer] and attached to record. lg 13:52 The patient / caregiver is instructed regarding the plan of care and ED course. bcj 13:52 Inserted saline lock: 22 gauge in right hand. bcj 14:01 Patient visited by Tree Farley RN. bcj 14:05 No procedures done that require assistance. bcj 14:10 Patient visited by Tree Farley, RN. [facility] 10/17 08:09 ELECTROCARDIOGRAM ADULT Returned. EDMS 11:03 T-Sheet-- Draft Copy was scanned into Clinical Data and attached to record. gb 11:03 ECG/EKG was scanned into Clinical Data and attached to record. gb Point of Care Testing: Blood Glucose: 10/16 13:00 Blood Glucose: 80 mg/dL; hs1 Ranges: Order Results: Lab Order: Basic Metabolic Profile; SPEC'M 10/16/16 12:36 Test: GLUCOSE, FASTING; Value: 80; Range: 70-105; Units: MG/DL; Status: F Test: BLOOD UREA NITROGEN; Value: 12; Range: 7-18; Units: MG/DL; Status: F Test: CREATININE FOR GFR; Value: 0.90; Range: 0.55-1.02; Units: MG/DL; Status: F Test: GLOMERULAR FILTRATION RATE; Value: > 60.0; Range: >60; Status: F Test: SODIUM LEVEL; Value: 143; Range: 136-145; Units: MEQ/L; Status: F Test: POTASSIUM SERUM; Value: 3.7; Range: 3.5-5.1; Units: MEQ/L; Status: F Test: CHLORIDE LEVEL; Value: 113; Range: 98-107; Abnormal: Above high normal; Units: MEQ/L; Status: F Test: CARBON DIOXIDE LEVEL; Value: 20; Range: 21-32; Abnormal: Below low normal; Units: MEQ/L; Status: F Test: ANION GAP; Value: 10; Range: 8-16; Units: MEQ/L; Status: F Test: CALCIUM LEVEL; Value: 8.0; Range: 8.5-10.1; Abnormal: Below low normal; Units: MG/DL; Status: F Test Note: ; Units are mL/min/1.73 m2 Chronic Kidney Disease Staging per NKF: Stage I & II GFR >=60 Normal to Mildly Decreased Stage III GFR 30-59 Moderately Decreased Stage IV GFR 15-29 Severely Decreased Stage V GFR <15 Very Little GFR Left ESRD GFR <15 on DESULFURIZER OPERATOR Lab Order: CBC with Diff; SPEC'M 10/16/16 12:36 Test: WHITE BLOOD COUNT; Value: 8.2; Range: 4.0-10.0; Units: K/mm3; Status: F Test: RED BLOOD COUNT; Value: 3.89; Range: 4.00-5.40; Abnormal: Below low normal; Units: M/mm3; Status: F Test: HEMOGLOBIN; Value: 10.1; Range: 12.0-16.0; Abnormal: Below low normal; Units: g/dl; Status: F Test: HEMATOCRIT; Value: 30.7; Range: 36.0-47.0; Abnormal: Below low normal; Units: %; Status: F Test: MEAN CORPUSCULAR VOLUME; Value: 78.8; Range: 80.0-96.0; Abnormal: Below low normal; Units: fl; Status: F Test: MEAN CORPUSCULAR HEMOGLOBIN; Value: 26.1; Range: 27.0-33.0; Abnormal: Below low normal; Units: pg; Status: F Test: MEAN CORPUSCULAR HGB CONC; Value: 33.1; Range: 32.0-36.5; Units: g/dl; Status: F Test: RED CELL DISTRIBUTION WIDTH; Value: 13.4; Range: 11.5-14.5; Units: %; Status: F Test: PLATELET COUNT, AUTOMATED; Value: 262; Range: 150-450; Units: k/mm3; Status: F Test: NEUTROPHILS %; Value: 62.3; Range: 36.0-66.0; Units: %; Status: F Test: LYMPH %; Value: 28.6; Range: 24.0-44.0; Units: %; Status: F Test: MONO %; Value: 4.8; Range: 0.0-5.0; Units: %; Status: F Test: EOS %; Value: 2.0; Range: 0.0-3.0; Units: %; Status: F Test: BASO %; Value: 0.5; Range: 0.0-1.0; Units: %; Status: F Test: LARGE UNSTAINED CELL %; Value: 1.8; Range: 0.0-4.0; Units: %; Status: F Test: NEUTROPHILS #; Value: 5.1; Range: 1.8-7.7; Units: K/mm3; Status: F Test: LYMPH #; Value: 2.3; Range: 1.5-4.5; Units: K/mm3; Status: F Test: MONO #; Value: 0.4; Range: 0.0-0.8; Units: K/mm3; Status: F Test: EOS #; Value: 0.2; Range: 0.0-0.50; Units: K/mm3; Status: F Test: BASO #; Value: 0.0; Range: 0.0-0.2; Units: K/mm3; Status: F Test: LARGE UNSTAINED CELL #; Value: 0.2; Range: 0.0-0.4; Units: K/mm3; Status: F Lab Order: Partial Thromboplastin Time; SPEC'M 10/16/16 12:36 Test: PARTIAL THROMBOPLASTIN TIME; Value: 29.7; Range: 26.6-37.1; Units: SECONDS; Status: F Lab Order: Prothrombin Time Profile\E\INR; SPEC'M 17 12:36 Test: PROTHROMBIN TIME; Value: 13.6; Range: 12.3-14.5; Units: SECONDS; Status: F Test: INR; Value: 1.03; Status: F Test Note: ; THERAPUTIC HUMAN INR VALUES INDICATIONS NORMAL RANGES PROPHYLAXIS/TREATMENT OF: VENOUS THROMBOSIS 2.0-3.0 PULMONARY EMBOLISM 2.0-3.0 PREVENTION OF SYSTEMIC EMBOLISM FROM: TISSUE HEART VALVES 2.0-3.0 ACUTE MYOCARDIAL INFARCTION 2.0-3.0 VALVULAR HEART DISEASE 2.0-3.0 ATRIAL FIBRILLATION 2.0-3.0 MECHANICAL VALVES(HIGH RISK) 2.5-3.5 RECURRENT MYOCARDIAL INFARCTION 2.5-3.5 Lab Order: Type & Screen; [facility] 10/16/16 12:36 Test: BLOOD TYPE; Value: O POS; Status: F Test: AB SCREEN (INDIRECT MINESH)GEL; Value: NEGATIVE; Status: F Lab Order: Fingerstick Blood Sugar; [facility] 10/16/16 12:59 Test: BEDSIDE GLUCOSE; Value: 80; Range: 70-105; Units: MG/DL; Status: F Radiology Order: CT Head Without Contrast Test: CT Head Without Contrast REASON FOR EXAMINATION: facial, upper extremity numbness; CT Head without contrast; ; HISTORY: Facial numbness; ; COMPARISON: 10/13/2016; ; There is no intraparenchymal hemorrhage, acute infarct, mass or midline shift.; The ventricular system is normal in appearance. There is no extra cerebral; collection. There is no fracture. 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 br1 14:02 Discharge Assessment: patient administered narcotics - no. The following High Risk [facility] Discharge criteria are identified: None. Transferred to [facility]. by EMS ground [facility] ambulance report to accompanying personnel Phan Madison EMT- P Lewis Skinner EMT. Condition: stable. CT Study completed. Property :Personal belongings accompany Pt. 14:10 Patient left the ED. [facility] Signatures: Dispatcher [employer] EDMS Kathrin Vazquez RN Tree Hernandez RN RN bcj Michelson, Sahra RN CALLUM srm Amy, Jordyn, Reg Reg gb Bibiana Malike, Reg Reg lg Susan Moss MD MD br1 Collin Echeverria, CASINO FLOOR PERSON CASINO FLOOR PERSON dd6 Caitie Silverman, PA-C PA-C ef1 Carolyn Eduardo, CASINO FLOOR PERSON CASINO FLOOR PERSON ar3 Eloina Guevara RN RN hs1 Michelle Grande, CASINO FLOOR PERSON CASINO FLOOR PERSON ct3 Maurice Heart dem1 Lilian Howell Margaret, RN RN mk4 Edel AngelaRN Regis Pennington,RN RN jf3 Corrections: (The following items were deleted from the chart) 11:45 11:26 Presenting complaint: Patient states: c/o right side facial numbness, states left ead side feels prickly. c/o numbness to both hands. unknown onset. reports hx of migraines, states does not feel similar. ead 12:43 12:10 Neurological: Level of Consciousness is awake, alert, Oriented to person, place, mk4 time, Capability Lead are equal bilaterally Speech is slurred, Reports numbness paresthesias weakness left side of face and tongue. [facility] 13:03 13:00 General: Pt ambulated approx 100 ft to and from the bathroom independently jf3 without difficulty. Pt showed no signs of weakness, droop, or favoring to one side. hs1 Chart Complete MTDD
== END 2016-10-16 14:10 | disposition short-term general hospital (02) ==
LOC: M ED 11:19
DX: R47.1 Dysarthria and anarthria (principal); I10 Essential (primary) hypertension; I25.2 Old myocardial infarction; I50.9 Heart failure, unspecified; R00.1 Bradycardia, unspecified; F90.9 Attention-deficit hyperactivity disorder, unspecified type; F31.9 Bipolar disorder, unspecified; Z86.73 Personal history of transient ischemic attack (TIA), and cerebral infarction without residual deficits; Z85.41 Personal history of malignant neoplasm of cervix uteri; Z95.0 Presence of cardiac pacemaker; Z90.79 Acquired absence of other genital organ(s); Z90.49 Acquired absence of other specified parts of digestive tract; Z90.89 Acquired absence of other organs; Z98.84 Bariatric surgery status; Z79.82 Long term (current) use of aspirin; Z88.8 Allergy status to other drugs, medicaments and biological substances; Z91.030 Bee allergy status; Z91.013 Allergy to seafood

== ENCOUNTER 2016-10-24 09:18 | Inpatient (IN) | payer MEDICARE, OTHER ==
[~2016-10-24] VITALS: Ht 157.5 cm; Wt 93.0 kg
[2016-10-24 10:11] LABS: CONTROL LINE HCG INT CTR LINE PRESENT
[2016-10-24 10:17] LABS: MEAN CORPUSCULAR HEMOGLOBIN 25.1 pg (27.0-33.0); MEAN CORPUSCULAR HGB CONC 32.1 g/dl (32.0-36.5); MEAN CORPUSCULAR VOLUME 78.2 fl (80.0-96.0); RED CELL DISTRIBUTION WIDTH 13.8 % (11.5-14.5); WHITE BLOOD COUNT 9.7 K/mm3 (4.0-10.0)
[2016-10-24 10:27] LABS: ALBUMIN 3.5 GM/DL (3.2-5.2); ALBUMIN/GLOBULIN RATIO 1.17 (1.00-1.93); ALKALINE PHOSPHATASE 103 U/L (45-117); ALT/SGPT 109 U/L (12-78); ANION GAP 9 MEQ/L (8-16); AST/SGOT 44 U/L (15-37); BILIRUBIN,DIRECT < 0.1 MG/DL (0.0-0.2); BILIRUBIN,TOTAL 0.3 MG/DL (0.2-1.0); BLOOD UREA NITROGEN 17 MG/DL (7-18); CARBON DIOXIDE LEVEL 27 MEQ/L (21-32); CHLORIDE LEVEL 107 MEQ/L (98-107); CREATININE FOR GFR 0.76 MG/DL (0.55-1.02); GLOMERULAR FILTRATION RATE > 60.0 (>60); GLUCOSE, FASTING 77 MG/DL (70-105); POTASSIUM SERUM 4.4 MEQ/L (3.5-5.1); SODIUM LEVEL 143 MEQ/L (136-145); TOTAL PROTEIN 6.5 GM/DL (6.4-8.2)
[2016-10-24 10:48] LABS: AMPHETAMINES LEVEL URINE NEGATIVE (NEGATIVE); BENZODIAZEPINES URINE NEGATIVE (NEGATIVE); COCAINE METABOLITE URINE NEGATIVE (NEGATIVE); CONTROL LINE INT CTR LINE PRESENT; METHADONE URINE NEGATIVE (NEGATIVE); OPIATES URINE NEGATIVE (NEGATIVE); TRICYCLIC ANTIDEPRESS URINE POSITIVE (NEGATIVE)
[2016-10-24] MEDS ORDERED: PANT40TA2 PO (11:28)
[2016-10-24] MEDS ORDERED: CLON1TAB PO (11:28)
[2016-10-24] MEDS ORDERED: VITMTA PO (11:28)
[2016-10-24] MEDS ORDERED: CYMB60CA3 PO (11:28)
[2016-10-24] MEDS ORDERED: KETO10TAB PO (11:28)
[2016-10-24] MEDS ORDERED: AMIT25TA PO (11:28)
[2016-10-24] MEDS ORDERED: ASPI325T PO (11:28)
[2016-10-24] MEDS ORDERED: TRAM50TA2 PO (11:28)
[2016-10-24] MEDS ORDERED: [UNRECOGNIZED DRUG - CODE] (11:30)
[2016-10-24] MEDS ORDERED: ONDA4TAB6 PO (11:31)
[2016-10-24] MEDS ORDERED: EPIP0.3I2 INJ (11:35)
[2016-10-24 12:24] LABS: ABG BASE EXCESS -1.3 (-2.0-2.0); ABG DEVICE NASAL CANN; ABG HCO3 25.2 MEQ/L (22.0-26.0); ABG PARTIAL PRESSURE CO2 51.1 mmHg (35.0-45.0); ABG PARTIAL PRESSURE O2 80.6 mmHg (75.0-100.0); ABG STANDARD HCO3 23.3 MEQ/L (22.0-26.0); ABG TOTAL CO2 26.8 MEQ/L (22.0-29.0); ABG pH (ARTERIAL) 7.311 UNITS (7.350-7.450)
[2016-10-24] MEDS ORDERED: NALOXONE INJ 2 MG/2 ML SYRINGE (J2310) As Ordered ONE (12:35)
[2016-10-24] MEDS ORDERED: ONDANSETRON 4MG/2ML VIAL (J2405) IV PRN (13:15)
[2016-10-24 13:20] LABS: RETIC HEMOGLOBIN CONTENT CHr 26.4 PG (24-36); RETICULOCYTE % ADVIA2120 2.1 % (0.5-1.5)
[2016-10-24 13:25] LABS: FERRITIN 7 NG/ML (8-252); PERCENT SATURATION 13.9 % (13.2-37.4); TOTAL IRON BINDING CAPACITY 475 UG/DL (250-450)
--- NOTE | 2016-10-24 13:28 | REP ---
CT Head without contrast HISTORY: Altered mental status COMPARISON: 10/16/2016 There is no intraparenchymal hemorrhage, acute infarct, mass or midline shift. The ventricular system is normal in appearance. There is no extra cerebral collection. There is no fracture. The visualized sinuses are clear. IMPRESSION: There is no intracranial lesion. Signed by Erasmo Walters MD 10/24/2016 01:19 P
[2016-10-24 14:04] LABS: VITAMIN B12 LEVEL 264 PG/ML (247-911)
[2016-10-24 14:05] LABS: FOLATE 14.1 NG/ML (>5.4)
--- NOTE | 2016-10-24 14:08 | HPE ---
DATE OF ADMISSION: 10/24/2016 PRIMARY CARE PROVIDER: [facility] CHIEF COMPLAINT: Difficult to arouse. HISTORY OF PRESENT ILLNESS: The patient is a 36-year-old female with reportedly over 39 emergency department (ED) in the last 1 year for various complaints. She has been seen down in [facility] twice in the last month. She was most recently diagnosed with basilar migraines and was actually started DHE and amitriptyline and discharged home 4 days ago. The patient's tells me that the patient misread her medication instructions and actually overdosed on the DHE, taking two full bottles of this. He tells me that he spoke to a nurse practitioner at the [facility] who told him to just watch the patient closely but nothing would need to be done. However, the patient was fatigued and difficult to arouse, and so he brought her to the emergency room. He tells me that she was recently started on amitriptyline. However, she has taken this medication inappropriately and has only taken four of the thirty pills. Discharged from [facility]. He denies her taking excess of any of her other medications. The patient herself does not remember the events of the previous day. She is oriented to person and place. She knows she is in the emergency room because she feels off. However, she thinks it is 2015. She knows the month. She does not know the day of the week or who the president is or who she voted for in the most recent election, but she is awake and alert. At the present time, other than feeling warm, she denies any other specific complaints. She denies chest pain, shortness of breath, fevers, chills, nausea, vomiting, diarrhea, abdominal pain, pain in her extremities. PAST MEDICAL HISTORY: 1. Attention deficit hyperactivity disorder (ADHD). 2. Bipolar disorder. 3. Depression. 4. Bradycardia, status post pacer. 5. Cervical cancer. 6. Congestive heart failure. No echocardiogram on file and no apparent medications. 7. Hypertension. 8. Migraine headaches. 9. Documented transient ischemic attack (TIA). 10. Anxiety. 11. Asthma. PAST SURGICAL HISTORY: 1. Hysterectomy. 2. Cholecystectomy. 3. Gastric bypass. 4. Pacemaker insertion. HOME MEDICATIONS: - aspirin 325 mg by mouth daily - amitriptyline 25 mg nightly - clonazepam 1 mg by mouth twice a day - Cymbalta 60 mg twice a day - ketorolac 10 mg every 6 hours as needed headache - multivitamin one tablet daily - Zofran 4 mg as needed nausea - Protonix 40 mg daily - tramadol 50 mg as needed pain - dihydroergotamine mesylate 4 mg as needed migraine - EpiPen ALLERGIES: BEE STINGS anaphylaxis. SHELLFISH anaphylaxis. ZOLOFT rash. SOCIAL HISTORY: The patient is a nonsmoker. She lives with her and occasionally stays with her father. Denies alcohol or illicit drug use. FAMILY HISTORY: Noncontributory. REVIEW OF SYSTEMS: Negative other than in history of present illness (HPI). PHYSICAL EXAMINATION: Blood pressure 95/51, pulse 60, respiratory rate 16, temperature 99, oxygen (O2) saturation 94% on room air. GENERAL: She is a morbidly obesity female, laying in a 30-degree angle. She does not appear to be in any acute distress. She is easily arousable to verbal stimuli. HEENT: Pupils equally round and reactive to light. Cranial nerves II-XII are grossly intact. I do not appreciate any significant slurring of her speech. Her pupils are not dilated. She has moist mucous membranes. CARDIOVASCULAR EXAMINATION: S1, S2. She is not tachycardic. A pacemaker in place. ABDOMINAL EXAMINATION: Is grossly obese. Bowel sounds are present. The abdomen is soft. EXTREMITIES: No clubbing, cyanosis, or edema. No evidence of vasoconstriction. Good palpable pulses in all four extremities. RESPIRATORY EXAMINATION: Is completely clear to auscultation. LABORATORY STUDIES: WBC 9.7, hemoglobin 10.3 stable, hematocrit 32.1, platelet count is 261. Chemistry panel: Sodium 143, potassium 4.4, chloride 107, bicarbonate 27, BUN 17, creatinine 0.7, lactic acid 0.7, AST slightly elevated at 44, ALT slightly elevated at 109, alkaline phosphatase 103, ammonia 24, TSH is within normal limits, hCG is negative. Toxicology is positive only for tricyclic antidepressants. There is no imaging. ASSESSMENT AND PLAN: This is a 36-year-old female presenting with what is likely a medication overdose. PROBLEMS: 1. Medication overdose. At this time, the patient is somewhat confused. An arterial blood gas revealed a pH of 7.3 and a PCO2 of 51.1, pO2 of 80.6. At this time, the patient is saturating well on room air, and she is awake, although mildly confused. I do not think that she is confused secondary to CO2 retention. For the time being, will continue with supplemental oxygen (O2). I will recheck an arterial blood gas in 2 hours. Should she not be improving or her condition worsening or she becomes more lethargic, I would place her on bilateral positive airway pressure (BiPAP) and will consult Dr. Dewitt of pulmonary critical care. For the time being, however, will simply monitor, as her last ingestion was reportedly at 2 p.m. or 3 p.m. yesterday. She may be well out from her ingestion and may be resolving at this point. Will check a CT scan of the head. Continue to monitor to electrocardiograms (EKGs) at this time. She does not have any QRS prolongation. She is not tachycardic. As such, I do not think that she is undergoing an overdose of tricyclic antidepressant. There is no evidence of vasoconstriction. As such, there is little evidence for an overdose of DHE, as well. However, I do have a concern that the patient may have overdosed on an alternative medication or alternative substance for which she is not disclosing. The patient will be admitted to the progressive care unit for very close monitoring. We will hold her home medications. Poison Control has been made aware. Metabolic encephalopathy on admission in the setting of possible medication overdose requiring serial labs, MRI and head CT and neuro checks 2. Bipolar disorder. We are holding the patient's Cymbalta. 3. Anxiety. The patient's clonazepam is being held. 4. Basilar migraines. The patient is on tramadol and DHE, as well as amitriptyline. They are all going to be placed on hold. 5. History of bradyarrhythmia. The patient tells me she follows with Dr. Newman. She has a pacemaker in place. 6. Congestive heart failure. The patient is not on any medications for hypertension or a diuretic. Will obtain records from Dr. Newman's office. 7. History of gastric bypass. The patient is mildly anemic. Will check iron studies and a B12 level. She may have some vitamin deficiencies. 8. Chronic anemia. Likely related to deficiencies related to her gastric bypass. Will check iron studies, as well as B12 and folate. 9. Chronic pain. The patient's Ketorolac will be put on hold. 10. Gastroesophageal reflux disease. Proton pump inhibitor (PPI) via intravenous (IV). 11. Deep venous thrombosis (DVT) prophylaxis. The patient will be on Lovenox. 12. Liver function test abnormalities, possibly secondary to medication adverse effect or overdose ingestion. Will check a liver ultrasound and recheck her liver function tests tomorrow and see if it resolves. DISPOSITION: The patient admitted to Dr. Natalia Haines's service in the progressive care unit. Will follow her closely over the next several hours. ERAN
[2016-10-24 14:55] LABS: ABG BASE EXCESS -2.1 (-2.0-2.0); ABG HCO3 23.5 MEQ/L (22.0-26.0); ABG PARTIAL PRESSURE CO2 43.7 mmHg (35.0-45.0); ABG PARTIAL PRESSURE O2 104.7 mmHg (75.0-100.0); ABG STANDARD HCO3 22.7 MEQ/L (22.0-26.0); ABG TOTAL CO2 24.8 MEQ/L (22.0-29.0); ABG pH (ARTERIAL) 7.348 UNITS (7.350-7.450)
[2016-10-24 15:20] VITALS: BP 116/55
--- NOTE | 2016-10-24 15:29 | REP ---
RIGHT UPPER QUADRANT ULTRASOUND: Real-time sonographic evaluation of the right upper quadrant is performed. The gallbladder has been surgical removed previously. There is no intrahepatic or extrahepatic biliary dilatation. The common bile duct measures 5 mm. The liver demonstrates somewhat heterogeneous echotexture. No pancreatic or liver mass is seen. Evaluation of the pancreas is limited due to bowel gas and body habitus. Right kidney demonstrates no hydronephrosis with normal size at 10.4 cm in length. No free fluid is seen. IMPRESSION: Essentially negative right upper quadrant ultrasound status post cholecystectomy. Signed by Eric Boone MD 10/24/2016 07:58 P
[2016-10-24] MEDS ORDERED: PANTOPRAZOLE 40MG INJ (PROTONIX) (C9113) As Ordered ONE (16:12)
[2016-10-24] MEDS ORDERED: ASPIRIN 325 MG TAB As Ordered ONE (16:13)
[2016-10-24] MEDS ORDERED: ENOXAPARIN 40 MG/0.4 ML SYRINGE (J1650) As Ordered ONE (16:13)
[2016-10-24] MEDS: NS 1,000 ML IV SCH (16:17)
[2016-10-24] MEDS: PANTOPRAZOLE 40MG INJ (PROTONIX) (C9113) IV SCH (16:17)
[2016-10-24] MEDS: ENOXAPARIN 40 MG/0.4 ML SYRINGE (J1650) SC SCH (16:18)
[2016-10-24] MEDS: ASPIRIN 325 MG TAB PO SCH (16:18)
[2016-10-24 20:00] VITALS: BP_SYST 115; BP_SYST 125; BP_DIAS 59; BP_DIAS 72
--- NOTE | 2016-10-24 20:22 | ECGEPIP ---
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
--- NOTE | 2016-10-24 20:24 | ECGEPIP ---
Stationary ECG Study 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
[2016-10-25] VITALS: BP 88/53
[2016-10-25 04:00] VITALS: BP 105/58
[2016-10-25] MEDS: NS 1,000 ML IV SCH (04:41)
[2016-10-25 08:00] VITALS: BP 112/54
[2016-10-25 08:18] LABS: ALBUMIN 2.7 GM/DL (3.2-5.2); ALBUMIN/GLOBULIN RATIO 0.87 (1.00-1.93); ALKALINE PHOSPHATASE 86 U/L (45-117); ALT/SGPT 71 U/L (12-78); ANION GAP 6 MEQ/L (8-16); AST/SGOT 21 U/L (15-37); BILIRUBIN,TOTAL 0.2 MG/DL (0.2-1.0); BLOOD UREA NITROGEN 11 MG/DL (7-18); CALCIUM LEVEL 7.7 MG/DL (8.5-10.1); CARBON DIOXIDE LEVEL 25 MEQ/L (21-32); CHLORIDE LEVEL 112 MEQ/L (98-107); CREATININE FOR GFR 0.63 MG/DL (0.55-1.02); GLOMERULAR FILTRATION RATE > 60.0 (>60); GLUCOSE, FASTING 78 MG/DL (70-105); SODIUM LEVEL 143 MEQ/L (136-145); TOTAL PROTEIN 5.8 GM/DL (6.4-8.2)
--- NOTE | 2016-10-25 08:21 | REPUSA ---
MRI of the brain Clinical history: stroke, possible overdose. Technique: Multiecho multiplanar MRI images of the brain were obtained without administration of cont rast. Diffusion weighted images with ADC mapping was also obtained. Findings: The ventricles and sulci are symmetric bilaterally. The brain parenchyma demonstrates uniform and nor mal signal on all sequences. There is no midline shift, mass effect, or extra-axial fluid collection. The midline intracranial structures do not demonstrate any gross abnormalities. The cervical cranial junction is intact. The orbits are unremarkable. Mild chronic mucosal thickening in the maxillary si nuses is appreciated. The other visualized paranasal sinuses and mastoid air cells are clear. The oss eous structures and superficial soft tissues are unremarkable. The vascular structures demonstrate ap propriate flow voids. Impression: Normal MRI of the Brain.
[2016-10-25] MEDS: ENOXAPARIN 40 MG/0.4 ML SYRINGE (J1650) SC SCH (09:42)
[2016-10-25] MEDS: ASPIRIN 325 MG TAB PO SCH (09:42)
[2016-10-25] MEDS: PANTOPRAZOLE 40MG INJ (PROTONIX) (C9113) IV SCH (09:43)
[2016-10-25 12:00] VITALS: BP 131/78
[2016-10-25] MEDS ORDERED: LITH30TASA PO (13:23)
--- NOTE | 2016-10-25 14:34 | EDDOCDS ---
Physician Documentation [facility] Name: Suyapa Watt Age: 36 yrs Sex: Female : 1980 Arrival Date: 10/24/2016 Time: 09:18 Bed Admit Hold Private MD: Dong [facility] Disposition: 10/24/16 12:30 Hospitalization ordered by Quincy Varela for Inpatient Admission. Preliminary diagnosis is Altered mental status, unspecified. - Bed requested for Admit. - Status is Inpatient Admission. aa3 - Condition is Stable. - Problem is new. - Symptoms are unchanged. Historical: - Allergies: bee stings (Anaphylaxis); SHELLFISH (Anaphylaxis); Zoloft (Rash); - Home Meds: 1. aspirin 325 mg Oral tab 1 tab once daily (Last dose: 10/23/2016) 2. clonazepam 1 mg Oral tab 1 tab as needed (Last dose: Unknown) 3. Cymbalta 60 mg Oral cpDR 1 cap bid (Last dose: 10/23/2016) 4. ketorolac 10 mg Oral tab every 6 hours (Last dose: 10/23/2016) 5. multivitamin Oral tab daily (Last dose: 10/23/2016) 6. tramadol Unknown Oral as needed (Last dose: 10/23/2016) 7. epinephrine 1 mg/mL (1 mL) injection kit 8. amitriptyline 25 mg Oral tab nightly - PMHx: ADHD; Bipolar disorder; bradycardia; cervical cancer; CHF; Hypertension; [place]; TIA; Migraine Headaches; - PSHx: Hysterectomy; Cholecystectomy; Gastric Bypass; Pacemaker Insertion; - Social history: Smoking status: Patient states was never smoker of tobacco. No barriers to communication noted, The patient speaks fluent [place]. - Family history: Not pertinent. - : The pt / caregiver states he / she is not on anticoagulants. Home medication list is obtained from the patient, family members, [email or web address] import data. - Exposure Risk Screening:: None identified. 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 2 in. (157.48 cm); Pain 0/10; 09:35 BP 102 / 53 (auto/); ck1 09:36 Pulse 60 MON; Pulse Ox 93% ; ck1 09:51 BP 95 / 53 (auto/); ck1 09:51 Pulse 60 MON; Pulse Ox 93% ; ck1 10:06 Pulse 60 MON; Pulse Ox 93% ; ck1 10:06 BP 93 / 52 (auto/); ck1 10:23 BP 100 / 57 (auto/); ck1 10:24 Pulse 72 MON; Pulse Ox 95% ; ck1 10:36 BP 103 / 57 (auto/); ck1 10:36 Pulse 60 MON; Pulse Ox 95% ; ck1 10:51 BP 100 / 50 (auto/); ck1 10:51 Pulse 60 MON; Pulse Ox 95% ; ck1 11:06 BP 95 / 51 (auto/); ck1 11:06 Pulse 60 MON; Pulse Ox 94% ; ck1 11:21 BP 101 / 51 (auto/); ck1 11:21 Pulse 60 MON; Pulse Ox 95% ; ck1 11:36 BP 87 / 54 (auto/); ck1 11:36 Pulse 60 MON; Pulse Ox 94% ; ck1 11:51 BP 98 / 54 (auto/); ck1 11:51 Pulse 60 MON; Pulse Ox 95% ; ck1 12:06 BP 100 / 54 (auto/); ck1 12:06 Pulse 60 MON; Pulse Ox 94% ; ck1 12:21 BP 101 / 58 (auto/); ck1 12:21 Pulse 60 MON; Pulse Ox 95% ; ck1 12:36 BP 96 / 54 (auto/); ck1 12:36 Pulse 60 MON; Pulse Ox 96% ; ck1 12:51 BP 108 / 73 (auto/); ck1 12:51 Pulse 70 MON; Pulse Ox 92% ; ck1 13:21 BP 115 / 78 (auto/); ck1 13:21 Pulse 60 MON; ck1 13:36 BP 119 / 73 (auto/); ck1 13:36 Pulse 60 MON; ck1 13:51 BP 112 / 71 (auto/); ck1 13:51 Pulse 60 MON; ck1 14:05 Pulse 60 MON; ck1 14:06 BP 113 / 70 (auto/); ck1 14:20 Pulse 60 MON; ck1 14:21 BP 96 / 54 (auto/); ck1 09:21 Body Mass Index 37.49 (92.99 kg, 157.48 cm) cmb MDM: 09:41 Consult PFS/PSA/Head Of Commission Department ordered. sd1 09:41 Consult PFS/PSA/Head Of Commission Department: Patient's case requires discussion with on-call sd1 Psychiatrist ordered. 09:41 PSA/PFS to call Nursing Dialysis Technician, to enter patient data on [place] Safe Act if patient sd1 involuntarily admitted or transferred for SI or HI ordered. 09:41 Drill Presser/Pulse Ox/q 15 min VS ordered. sd1 09:41 Confirm accurate psychiatric medication list and times of last dosage ordered. sd1 09:41 Detain Pt Until Medically/PFS Cleared ordered. sd1 09:41 IV Saline Lock ordered. sd1 09:41 Acetaminophen Level Ordered. EDMS 09:41 Basic Metabolic Profile Ordered. EDMS 09:41 Complete Blood Count Ordered. EDMS 09:41 Drug Eval Toxicology ED Only Ordered. EDMS 09:42 Ethyl Alcohol (ethanol) Ordered. EDMS 09:42 HCG,Serum Qualitative Ordered. EDMS 09:42 Liver Profile Ordered. EDMS 09:42 Salicylate Level Ordered. EDMS 09:42 Thyroid Stimulating Hormone Ordered. EDMS 09:42 NS 0.9% 1000 ml IV at bolus once ordered. sd1 09:42 ECG WITH READING ER PHYS+CARDIAG ordered. EDMS 09:43 Lactic Acid ([place] tube on ice) Ordered. EDMS 09:47 Accucheck ordered. sd1 09:51 PSA/PFS to call Nursing Dialysis Technician, to enter patient data [place] Safe [place] if patient ck1 involuntarily admitted or transferred for SI or HI complete. 09:51 Consult PFS/PSA/Head Of Commission Department: Patient's case requires discussion with on-call ck1 Psychiatrist complete. 09:51 Consult PFS/PSA/Head Of Commission Department complete. ck1 10:05 Fingerstick Blood Sugar Ordered. EDMS 10:52 Acetaminophen Level Reviewed. sd1 10:52 Basic Metabolic Profile Reviewed. sd1 10:52 Complete Blood Count Reviewed. sd1 10:52 Drug Eval Toxicology ED Only Reviewed. sd1 10:52 Liver Profile Reviewed. sd1 10:52 Salicylate Level Reviewed. sd1 10:52 Ethyl Alcohol (ethanol) Reviewed. sd1 10:52 HCG,Serum Qualitative Reviewed. sd1 10:52 Thyroid Stimulating Hormone Reviewed. sd1 10:52 Lactic Acid ([place] tube on ice) Reviewed. sd1 10:52 Fingerstick Blood Sugar Reviewed. sd1 10:57 Ammonia ([place] Tube on Ice, Not [place]a Green) Ordered. EDMS 10:59 BED REQUEST+ADM ordered. EDMS 11:38 [facility] Payment Agreement was scanned into [employer] and attached to record. jp5 11:38 Financial registration complete. jp5 11:41 Repeat EKG (put time details section) ordered. sd1 11:41 NS 0.9% 1000 ml IV at bolus once ordered. sd1 11:41 Call Respiratory ordered. sd1 11:42 -Arterial Blood Gas Ordered. EDMS 11:44 Call Respiratory complete. ck1 11:49 Repeat EKG (put time details section) complete. dem1 12:16 Ammonia ([place] Tube on Ice, Not [place]a Green) Reviewed. sd1 12:28 -Arterial Blood Gas Reviewed. sd1 12:29 Misc. Nursing Order ordered. sd1 12:29 naloxone 0.4 mg IVP once ordered. sd1 12:31 CT Head Without Contrast Ordered. EDMS 12:57 LIVER US Ordered. EDMS 12:57 ELECTROCARDIOGRAM ADULT ordered. EDMS 12:58 ARTERIAL BLOOD GAS Ordered. EDMS 13:06 Admission / Observation Status ordered. EDMS 13:07 NPO DIET ordered. EDMS 13:26 MRI Brain without Contrast Ordered. EDMS 13:41 FOLATE Ordered. EDMS 13:41 VITAMIN B12 LEVEL Ordered. EDMS 15:01 Acetaminophen Level Reviewed. sd1 15:01 Basic Metabolic Profile Reviewed. sd1 15:01 Complete Blood Count Reviewed. sd1 15:01 Liver Profile Reviewed. sd1 15:01 Salicylate Level Reviewed. sd1 15:01 ARTERIAL BLOOD GAS Reviewed. sd1 15:01 RETICULOCYTE COUNT Reviewed. sd1 15:01 TOTAL IRON BINDING CAPACIT Reviewed. sd1 15:01 FERRITIN Reviewed. sd1 15:01 Ethyl Alcohol (ethanol) Reviewed. sd1 15:01 HCG,Serum Qualitative Reviewed. sd1 15:01 Thyroid Stimulating Hormone Reviewed. sd1 15:01 FOLATE Reviewed. sd1 15:01 VITAMIN B12 LEVEL Reviewed. sd1 15:01 CT Head Without Contrast Reviewed. sd1 17:13 ECG WITH READING ER PHYS ordered. EDMS 19:32 BASIC METABOLIC PROFILE Ordered. EDMS 19:32 COMPLETE COMPHRENSIVE METABOLI Ordered. EDMS 10/25 00:48 REGULAR DIET ordered. EDMS 13:45 T-Sheet-- Draft Copy was scanned into [employer] and attached to record. gb 13:45 Radiology Report was scanned into [employer] and attached to record. gb Point of Care Testing: Blood Glucose: 10/24 09:59 Blood Glucose: 88 mg/dL; ck1 Ranges: Administered Medications: :59 Drug: NS 0.9% 1000 ml [sodium chloride 0.9 % intravenous solution] Route: IV; Rate: ck1 bolus; Site: left antecubital; 11:24 Follow up: IV Status: Completed infusion ck1 11:48 Drug: NS 0.9% 1000 ml [sodium chloride 0.9 % intravenous solution] Route: IV; Rate: ck1 bolus; Site: left antecubital; 12:38 Drug: naloxone 0.4 mg [naloxone 1 mg/mL injection syringe (0.4 mL)] Route: IVP; Site: ck left antecubital; Signatures: Dispatcher [facility] EDMS Lilian Cuellar MD MD sd1 Jordyn Reyes, Reg Reg gb Dominique ChoiRN RN ck1 Susana KilpatrickRN RN jared3 [facility] dem1 Gilda Tilley RN RN aa3 Marian Hector jp5 The chart was reviewed and I authenticate all verbal orders and agree with the evaluation and treatment provided.Corrections: (The following items were deleted from the chart) 13:09 12:58 FERRITIN ordered. EDMS EDMS 13:09 12:58 IRON (FE) ordered. EDMS EDMS 13:09 12:58 TOTAL IRON BINDING CAPACIT ordered. EDMS EDMS 13:10 12:58 RETICULOCYTE COUNT ordered. EDMS EDMS 13:41 13:24 VITAMIN B12 LEVEL ordered. EDMS EDMS 13:41 13:26 FOLATE ordered. EDMS EDMS Attachments: 11:38 [facility] Payment Agreement jp5 10/25 13:45 T-Sheet-- Draft Copy gb MTDD
--- NOTE | 2016-10-25 14:35 | EDDOCDS ---
Nurse's Notes [facility] Name: Suyapa Kessler Age: 36 yrs Sex: Female : 1980 Arrival Date: 10/24/2016 Time: 09:18 Bed Admit Hold Private MD: ROEL Umana Diagnosis: Altered mental status, unspecified Presentation: 10/24 09:24 Presenting complaint: Patient states: Used DHE spray 2 entire vials since Sunday and kr3 Tramodol yesterday. Today no meds. states: noticed confusion 1 day ago which has become worse. Has been using meds for migraine headaches. was admitted at [facility] last week for migraine. Adult Sepsis Screening: The patient does not have new or worsening altered mentation. Patient's respiratory rate is less than 22. Systolic blood pressure is greater than 100. Patient has a qSOFA score of 0- Negative Sepsis Screen. Suicide/Homicide risk assessment- the patient denies having any suicidal and/or homicidal ideations and does not present with any other emotional, behavioral or mental health complaints. Status: Patient is not a director patient financial services or dependent. Transition of care: patient was not received from another setting of care. 09:24 Acuity: ERIN Level 2 kr3 09:24 Method Of Arrival: Wheelchair kr3 Triage Assessment: 09:29 General: Appears in no apparent distress, Behavior is appropriate for age, cooperative. kr3 Pain: Denies pain. HIV screening NA for this visit Offered previously. Neurological: Level of Consciousness is lethargic, Oriented to person, place, Moves all extremities. Gait is unsteady, Speech is slurred. Respiratory: Respiratory effort is even, unlabored. Derm: Skin is pink, warm & dry. [employer]: 09:29 LMP N/A - Hysterectomy kr3 Historical: - Allergies: bee stings (Anaphylaxis); SHELLFISH (Anaphylaxis); Zoloft (Rash); - Home Meds: 1. aspirin 325 mg Oral tab 1 tab once daily (Last dose: 10/23/2016) 2. clonazepam 1 mg Oral tab 1 tab as needed (Last dose: Unknown) 3. Cymbalta 60 mg Oral cpDR 1 cap bid (Last dose: 10/23/2016) 4. ketorolac 10 mg Oral tab every 6 hours (Last dose: 10/23/2016) 5. multivitamin Oral tab daily (Last dose: 10/23/2016) 6. tramadol Unknown Oral as needed (Last dose: 10/23/2016) 7. epinephrine 1 mg/mL (1 mL) injection kit 8. amitriptyline 25 mg Oral tab nightly - PMHx: ADHD; Bipolar disorder; bradycardia; cervical cancer; CHF; Hypertension; NH; TIA; Migraine Headaches; - PSHx: Hysterectomy; Cholecystectomy; Gastric Bypass; Pacemaker Insertion; - Social history: Smoking status: Patient states was never smoker of tobacco. No barriers to communication noted, The patient speaks fluent Icelandic. - Family history: Not pertinent. - : The pt / caregiver states he / she is not on anticoagulants. Home medication list is obtained from the patient, family members, [employer] import data. - Exposure Risk Screening:: None identified. Screenin:59 Screening information is obtained from the patient. Fall risk: At risk due to apparent ck1 cognitive impairment, The following interventions are performed due to a positive Fall Risk Screen: Fall Risk is added to Special Handling on the patient Summary Screen. A Fall Risk Bracelet was applied to the patient. Side Rails are placed in the up position. A Call Laws is given with instruction to call for help when getting out of bed. Fall Alert bracelet is placed on the patient. Assistance ADL's: requires no assistance with activities of daily living. Abuse/DV Screen: The patient / caregiver reports he/she is: not in a situation that causes fear, pain or injury. Nutritional screening: No deficits noted. home support is adequate. 14:33 Advance Directives: There is no active DNR order. ck1 Assessment: 09:27 General: This nurse spoke with poison control and advised to monitor basic lab work and ead EKG. . 10:00 General: Appears obese, well developed, well nourished, well groomed, Behavior is ck1 drowsy. Pain: Denies pain. Neurological: Level of Consciousness is lethargic, Oriented to person, place, time, Moves all extremities. Speech is slurred, Facial symmetry appears normal. Cardiovascular: Rhythm is regular. Respiratory: Respiratory effort is unlabored, Respiratory pattern is regular, symmetrical. Derm: Skin is intact, is healthy with good turgor, Skin is pink, warm & dry. Musculoskeletal: Circulation, motion, and sensation intact Range of motion intact in all extremities. 11:00 Reassessment: Patient appears in no apparent distress at this time. ck1 12:00 General: Appears obese, well developed, well nourished, well groomed, Behavior is ck1 drowsy. Pain: Denies pain. Neurological: Level of Consciousness is lethargic, Oriented to person, place, time. Cardiovascular: Rhythm is regular. Respiratory: Respiratory effort is unlabored, Respiratory pattern is regular, symmetrical. Derm: Skin is intact, is healthy with good turgor, Skin is pink, warm & dry. 13:00 Reassessment: Patient appears in no apparent distress at this time. ck1 14:31 General: Appears in no apparent distress, Behavior is drowsy. Pain: Denies pain. ck1 Neurological: Level of Consciousness is lethargic, Oriented to person, place, time. Cardiovascular: Rhythm is regular. Respiratory: Respiratory effort is unlabored, Respiratory pattern is regular, symmetrical. Derm: Skin is pink, warm & dry. Vital Signs: 09:21 BP 87 / 57; Pulse 60; Resp 16; Temp 99(O); Pulse Ox 97% ; Weight 92.99 kg; Height 5 ft. cmb 2 in. (157.48 cm); Pain 0/10; 09:35 BP 102 / 53 (auto/); ck1 09:36 Pulse 60 MON; Pulse Ox 93% ; ck1 09:51 BP 95 / 53 (auto/); ck1 09:51 Pulse 60 MON; Pulse Ox 93% ; ck1 10:06 Pulse 60 MON; Pulse Ox 93% ; ck1 10:06 BP 93 / 52 (auto/); ck1 10:23 BP 100 / 57 (auto/); ck1 10:24 Pulse 72 MON; Pulse Ox 95% ; ck1 10:36 BP 103 / 57 (auto/); ck1 10:36 Pulse 60 MON; Pulse Ox 95% ; ck1 10:51 BP 100 / 50 (auto/); ck1 10:51 Pulse 60 MON; Pulse Ox 95% ; ck1 11:06 BP 95 / 51 (auto/); ck1 11:06 Pulse 60 MON; Pulse Ox 94% ; ck1 11:21 BP 101 / 51 (auto/); ck1 11:21 Pulse 60 MON; Pulse Ox 95% ; ck1 11:36 BP 87 / 54 (auto/); ck1 11:36 Pulse 60 MON; Pulse Ox 94% ; ck1 11:51 BP 98 / 54 (auto/); ck1 11:51 Pulse 60 MON; Pulse Ox 95% ; ck1 12:06 BP 100 / 54 (auto/); ck1 12:06 Pulse 60 MON; Pulse Ox 94% ; ck1 12:21 BP 101 / 58 (auto/); ck1 12:21 Pulse 60 MON; Pulse Ox 95% ; ck1 12:36 BP 96 / 54 (auto/); ck1 12:36 Pulse 60 MON; Pulse Ox 96% ; ck1 12:51 BP 108 / 73 (auto/); ck1 12:51 Pulse 70 MON; Pulse Ox 92% ; ck1 13:21 BP 115 / 78 (auto/); ck1 13:21 Pulse 60 MON; ck1 13:36 BP 119 / 73 (auto/); ck1 13:36 Pulse 60 MON; ck1 13:51 BP 112 / 71 (auto/); ck1 13:51 Pulse 60 MON; ck1 14:05 Pulse 60 MON; ck1 14:06 BP 113 / 70 (auto/); ck1 14:20 Pulse 60 MON; ck1 14:21 BP 96 / 54 (auto/); ck1 09:21 Body Mass Index 37.49 (92.99 kg, 157.48 cm) [facility] Vitals: 09:21 Log In Time: October 24, 2016 at 09:18. [facility] ED Course: 09:20 Patient visited by Milli Mccullough. cmb 09:20 [facility] [place] Private Physician. cmb 09:20 Patient moved to Waiting cmb 09:24 RN notified that patient meets Red Flag criteria. cmb 09:27 Triage Initiated kr3 09:30 Patient visited by Susana Kilpatrick,CALLUM. kr3 09:31 Dominique Choi,CALLUM is Primary Nurse. kr3 09:31 Patient moved to 4 kr3 09:35 Lilian Cuellar MD is Attending Physician. sd1 09:36 Patient visited by Lilian Cuellar MD. sd1 09:51 Lactic Acid (Boone tube on ice) Sent. ck1 09:51 Acetaminophen Level Sent. ck1 09:51 Basic Metabolic Profile Sent. ck1 09:51 Complete Blood Count Sent. ck1 09:51 Ethyl Alcohol (ethanol) Sent. ck1 09:51 HCG,Serum Qualitative Sent. ck1 09:51 Liver Profile Sent. ck1 09:51 Salicylate Level Sent. ck1 09:51 Thyroid Stimulating Hormone Sent. ck1 09:57 EKG done. (by ED staff). Reviewed by Lilian Cuellar MD. dem1 09:59 Patient visited by Dominique Choi,CALLUM. ck1 09:59 Patient visited by Maurice Heart. dem1 09:59 Inserted saline lock: 18 gauge in right antecubital area and blood collected. The ck1 patient tolerated the procedure well. 09:59 Inserted saline lock: 18 gauge in left antecubital area and blood collected. The ck1 patient tolerated the procedure well. 10:00 The patient / caregiver is instructed regarding the plan of care and ED course. ck1 10:01 O2 via nasal cannula \T\ 2L/min. ck1 10:23 Patient visited by Dominique Choi,CALLUM. ck1 10:23 Drug Eval Toxicology ED Only Sent. ck1 11:13 Patient visited by Dominique Choi,CALLUM. ck1 11:38 [facility] Payment Agreement was scanned into [employer] and attached to record. jp5 11:43 Patient visited by Dominique Choi,CALLUM. ck1 11:49 EKG done. (by ED staff). Reviewed by Lilian Cuellar MD. dem1 11:50 Patient visited by Maurice Heart. dem1 12:22 -Arterial Blood Gas Sent. cs15 12:30 Quincy Varela is Hospitalizing Provider. sd1 14:11 CT Head Without Contrast Returned. EDMS 14:34 No procedures done that require assistance. ck1 14:43 ARTERIAL BLOOD GAS Sent. cs15 14:53 Patient moved to Ultrasound br3 15:06 Patient moved to 19 kcs 15:07 Patient moved to 20 ck1 15:52 LIVER US Returned. EDMS 16:30 Patient moved to Admit Hold tmm1 18:55 Primary Nurse role handed off by Dominique Choi,RN ck1 21:16 EKG-ADULT Returned. EDMS 21:16 ECG WITH READING ER PHYS Returned. EDMS 10/25 07:42 Diet: Patient given regular meal. Tolerated well. rs6 07:43 Patient visited by Xochilt Torres PCA. rs6 08:43 MRI Brain without Contrast Returned. EDMS 11:25 Patient visited by Edwar Montes PSA. cs 13:45 T-Sheet-- Draft Copy was scanned into [employer] and attached to record. gb 13:45 Radiology Report was scanned into [employer] and attached to record. gb Administered Medications: 10/24 09:59 Drug: NS 0.9% 1000 ml [sodium chloride 0.9 % intravenous solution] Route: IV; Rate: ck1 bolus; Site: left antecubital; 11:24 Follow up: IV Status: Completed infusion ck1 11:48 Drug: NS 0.9% 1000 ml [sodium chloride 0.9 % intravenous solution] Route: IV; Rate: ck1 bolus; Site: left antecubital; 12:38 Drug: naloxone 0.4 mg [naloxone 1 mg/mL injection syringe (0.4 mL)] Route: IVP; Site: ck left antecubital; Point of Care Testing: Blood Glucose: 09:59 Blood Glucose: 88 mg/dL; ck1 Ranges: RT: 12:22 ABG's drawn from left radial artery allens test done and positive pressure held for 5 cs15 minutes no bleeding noted pressure bandage applied specimen sent pt. tolerated well. O2 via nasal cannula \T\ 2L/min. 14:43 ABG's drawn from left radial artery allens test done and positive pressure held for 5 cs15 minutes no bleeding noted pressure bandage applied specimen sent pt. tolerated well. O2 via nasal cannula \T\ 2L/min. Order Results: Lab Order: Acetaminophen Level; SPEC'M 10/24/16 09:48 Test: ACETAMINOPHEN LEVEL; Value: < 2.0; Range: 10.0-30.0; Abnormal: Below low normal; Units: UG/ML; Status: F Test: VITAMIN B12 LEVEL; Range: 247-911; Units: PG/ML; Status: I Test: FOLATE; Range: >5.4; Units: NG/ML; Status: I Lab Order: Basic Metabolic Profile; SPEC'M 10/24/16 09:48 Test: GLUCOSE, FASTING; Value: 77; Range: 70-105; Units: MG/DL; Status: F Test: BLOOD UREA NITROGEN; Value: 17; Range: 7-18; Units: MG/DL; Status: F Test: CREATININE FOR GFR; Value: 0.76; Range: 0.55-1.02; Units: MG/DL; Status: F Test: SODIUM LEVEL; Range: 136-145; Units: MEQ/L; Status: I Test: POTASSIUM SERUM; Range: 3.5-5.1; Units: MEQ/L; Status: I Test: CHLORIDE LEVEL; Range: 98-107; Units: MEQ/L; Status: I Test: CARBON DIOXIDE LEVEL; Range: 21-32; Units: MEQ/L; Status: I Test: ANION GAP; Range: 8-16; Units: MEQ/L; Status: I Test: CALCIUM LEVEL; Range: 8.5-10.1; Units: MG/DL; Status: I Test: GLOMERULAR FILTRATION RATE; Value: > 60.0; Range: >60; Status: F Test: SODIUM LEVEL; Value: 143; Range: 136-145; Units: MEQ/L; Status: F Test: POTASSIUM SERUM; Value: 4.4; Range: 3.5-5.1; Units: MEQ/L; Status: F Test: CHLORIDE LEVEL; Value: 107; Range: 98-107; Units: MEQ/L; Status: F Test: CARBON DIOXIDE LEVEL; Value: 27; Range: 21-32; Units: MEQ/L; Status: F Test: ANION GAP; Value: 9; Range: 8-16; Units: MEQ/L; Status: F Test: CALCIUM LEVEL; Value: 8.0; Range: 8.5-10.1; Abnormal: Below low normal; Units: MG/DL; Status: F Test Note: ; Units are mL/min/1.73 m2 Chronic Kidney Disease Staging per NKF: Stage I & II GFR >=60 Normal to Mildly Decreased Stage III GFR 30-59 Moderately Decreased Stage IV GFR 15-29 Severely Decreased Stage V GFR <15 Very Little GFR Left ESRD GFR <15 on FELLER SEAM OPERATOR Lab Order: Complete Blood Count; SPEC'M 10/24/16 09:48 Test: WHITE BLOOD COUNT; Value: 9.7; Range: 4.0-10.0; Units: K/mm3; Status: F Test: RED BLOOD COUNT; Value: 4.11; Range: 4.00-5.40; Units: M/mm3; Status: F Test: HEMOGLOBIN; Value: 10.3; Range: 12.0-16.0; Abnormal: Below low normal; Units: g/dl; Status: F Test: HEMATOCRIT; Value: 32.1; Range: 36.0-47.0; Abnormal: Below low normal; Units: %; Status: F Test: MEAN CORPUSCULAR VOLUME; Value: 78.2; Range: 80.0-96.0; Abnormal: Below low normal; Units: fl; Status: F Test: MEAN CORPUSCULAR HEMOGLOBIN; Value: 25.1; Range: 27.0-33.0; Abnormal: Below low normal; Units: pg; Status: F Test: MEAN CORPUSCULAR HGB CONC; Value: 32.1; Range: 32.0-36.5; Units: g/dl; Status: F Test: RED CELL DISTRIBUTION WIDTH; Value: 13.8; Range: 11.5-14.5; Units: %; Status: F Test: PLATELET COUNT, AUTOMATED; Value: 261; Range: 150-450; Units: k/mm3; Status: F Lab Order: Drug Eval Toxicology ED Only; SPEC'M 10/24/16 10:22 Test: AMPHETAMINES LEVEL URINE; Value: NEGATIVE; Range: NEGATIVE; Status: F Test: BARBITURATES URINE; Value: NEGATIVE; Range: NEGATIVE; Status: F Test: BENZODIAZEPINES URINE; Value: NEGATIVE; Range: NEGATIVE; Status: F Test: CANNABINOIDS URINE; Value: NEGATIVE; Range: NEGATIVE; Status: F Test: COCAINE METABOLITE URINE; Value: NEGATIVE; Range: NEGATIVE; Status: F Test: METHADONE URINE; Value: NEGATIVE; Range: NEGATIVE; Status: F Test: OPIATES URINE; Value: NEGATIVE; Range: NEGATIVE; Status: F Test: TRICYCLIC ANTIDEPRESS URINE; Value: POSITIVE; Range: NEGATIVE; Abnormal: Above high normal; Status: F Test Note: ; ALL PRESUMPTIVE POSITIVE FINDINGS ARE UNCONFIRMED NORMAL VALUES THRESHOLD IN NG/ML AMPHETAMINES 1000 METHAMPHETAMINES 1000 BARBITURATES 300 BENZODIAZEPINES 300 CANNABINOIDS (THC) 50 COCAINE METABOLITE 300 METHADONE 300 OPIATES 300 PHENCYCLIDINE 25 TRICYCLIC ANTIDEPRESSANTS 1000 RESULTS ARE FOR MEDICAL PURPOSES ONLY. ALL URINE SPECIMENS WILL BE SAVED FOR 3 DAYS. IF CONFIRMATION OF A PRESUMPTIVE POSTIVE SCREEN RESULT IS DESIRED, CALL CHEMISTRY ([phone]) AND REQUEST URINE TO BE SENT TO REFERENCE LAB. FOR A LIST OF CLOSELY RELATED COMPOUNDS PLEASE CALL THE LAB. Lab Order: Ethyl Alcohol (ethanol); 10/24/16 09:48 Test: ETHYL ALCOHOL (ETHANOL); Value: 0.004; Range: 0.000-0.010; Units: %; Status: F Lab Order: HCG,Serum Qualitative; 10/24/16 09:48 Test: HCG, SERUM QUALITATIVE; Value: NEGATIVE; Range: NEGATIVE; Status: F Lab Order: Liver Profile; 10/24/16 09:48 Test: AST/SGOT; Value: 44; Range: 15-37; Abnormal: Above high normal; Units: U/L; Status: F Test: ALT/SGPT; Value: 109; Range: 12-78; Abnormal: Above high normal; Units: U/L; Status: F Test: ALKALINE PHOSPHATASE; Value: 103; Range: 45-117; Units: U/L; Status: F Test: BILIRUBIN,TOTAL; Value: 0.3; Range: 0.2-1.0; Units: MG/DL; Status: F Test: BILIRUBIN,DIRECT; Value: < 0.1; Range: 0.0-0.2; Units: MG/DL; Status: F Test: TOTAL PROTEIN; Value: 6.5; Range: 6.4-8.2; Units: GM/DL; Status: F Test: ALBUMIN; Value: 3.5; Range: 3.2-5.2; Units: GM/DL; Status: F Test: ALBUMIN/GLOBULIN RATIO; Value: 1.17; Range: 1.00-1.93; Status: F Lab Order: Salicylate Level; 10/24/16 09:48 Test: SALICYLATE LEVEL; Value: < 1.7; Range: 5.0-30.0; Abnormal: Below low normal; Units: MG/DL; Status: F Lab Order: Thyroid Stimulating Hormone; SPEC10/24/16 09:48 Test: THYROID STIMULATING HORMONE; Value: 2.940; Range: 0.358-3.740; Units: uIU/ML; Status: F Lab Order: Lactic Acid (Boone tube on ice); 10/24/16 09:48 Test: LACTIC ACID LEVEL, LACTATE; Value: 0.7; Range: 0.4-2.0; Units: MMOL/L; Status: F Lab Order: Fingerstick Blood Sugar; 10/24/16 09:57 Test: BEDSIDE GLUCOSE; Value: 88; Range: 70-105; Units: MG/DL; Status: F Lab Order: Ammonia ([place] Tube on Ice, Not [place]); 10/24/16 11:32 Test: AMMONIA; Value: 24; Range: <32; Units: uMOL/L; Status: F Lab Order: -Arterial Blood Gas; 10/24/16 12:20 Test: ABG pH (ARTERIAL); Value: 7.311; Range: 7.350-7.450; Abnormal: Below low normal; Units: UNITS; Status: F Test: ABG PARTIAL PRESSURE CO2; Value: 51.1; Range: 35.0-45.0; Abnormal: Above high normal; Units: mmHg; Status: F Test: ABG PARTIAL PRESSURE O2; Value: 80.6; Range: 75.0-100.0; Units: mmHg; Status: F Test: ABG TOTAL CO2; Value: 26.8; Range: 22.0-29.0; Units: MEQ/L; Status: F Test: ABG HCO3; Value: 25.2; Range: 22.0-26.0; Units: MEQ/L; Status: F Test: ABG BASE EXCESS; Value: -1.3; Range: -2.0-2.0; Status: F Test: ABG STANDARD HCO3; Value: 23.3; Range: 22.0-26.0; Units: MEQ/L; Status: F Test: ABG O2 SATURATION; Value: 94.6; Range: 95.0-99.0; Abnormal: Below low normal; Units: %; Status: F Test: ABG DEVICE; Value: NASAL NORMA; Status: F Lab Order: ARTERIAL BLOOD GAS; [facility] 10/24/16 14:41 Test: ABG pH (ARTERIAL); Value: 7.348; Range: 7.350-7.450; Abnormal: Below low normal; Units: UNITS; Status: F Test: ABG PARTIAL PRESSURE CO2; Value: 43.7; Range: 35.0-45.0; Units: mmHg; Status: F Test: ABG PARTIAL PRESSURE O2; Value: 104.7; Range: 75.0-100.0; Abnormal: Above high normal; Units: mmHg; Status: F Test: ABG TOTAL CO2; Value: 24.8; Range: 22.0-29.0; Units: MEQ/L; Status: F Test: ABG HCO3; Value: 23.5; Range: 22.0-26.0; Units: MEQ/L; Status: F Test: ABG BASE EXCESS; Value: -2.1; Range: -2.0-2.0; Abnormal: Below low normal; Status: F Test: ABG STANDARD HCO3; Value: 22.7; Range: 22.0-26.0; Units: MEQ/L; Status: F Test: ABG O2 SATURATION; Value: 96.9; Range: 95.0-99.0; Units: %; Status: F Lab Order: RETICULOCYTE COUNT; SPEC10/24/16 09:48 Test: RETICULOCYTE % [id number]; Value: 2.10; Range: 0.5-1.5; Abnormal: Above high normal; Units: %; Status: F Test: RETICULOCYTE ABSOLUTE [id number]; Value: 84; Range: 17-77; Abnormal: Above high normal; Units: x10(9)/L; Status: F Test: RETIC HEMOGLOBIN CONTENT CHr; Value: 26.4; Range: 24-36; Units: PG; Status: F Lab Order: TOTAL IRON BINDING CAPACIT; SPEC'10/24/16 09:48 Test: IRON (FE); Value: 66; Range: 50-170; Units: UG/DL; Status: F Test: TOTAL IRON BINDING CAPACITY; Value: 475; Range: 250-450; Abnormal: Above high normal; Units: UG/DL; Status: F Test: PERCENT SATURATION; Value: 13.9; Range: 13.2-37.4; Units: %; Status: F Lab Order: FERRITIN; SPEC'10/24/16 09:48 Test: FERRITIN; Value: 7; Range: 8-252; Abnormal: Below low normal; Units: NG/ML; Status: F Lab Order: FOLATE; SPEC'M 10/24/16 09:48 Test: FOLATE; Value: 14.1; Range: >5.4; Units: NG/ML; Status: F Test Note: ; FOLATE NORMAL RANGE NORMAL GREATER THAN 5.4 NG/ML INDETERMINATE 3.4-5.4 NG/ML DEFICIENT LESS THAN 3.4 NG/ML Lab Order: VITAMIN B12 LEVEL; SPEC'M 10/24/16 09:48 Test: VITAMIN B12 LEVEL; Value: 264; Range: 247-911; Units: PG/ML; Status: F Test Note: ; VITAMIN B12 NORMAL RANGE NORMAL 247 - 911 PG/ML INDETERMINATE 211 - 246 PG/ML DEFICIENT LESS THAN 211 PG/ML Lab Order: COMPLETE COMPHRENSIVE METABOLI; SPEC'M 10/25/16 07:16 Test: GLUCOSE, FASTING; Value: 78; Range: 70-105; Units: MG/DL; Status: F Test: BLOOD UREA NITROGEN; Value: 11; Range: 7-18; Units: MG/DL; Status: F Test: CREATININE FOR GFR; Value: 0.63; Range: 0.55-1.02; Units: MG/DL; Status: F Test: GLOMERULAR FILTRATION RATE; Value: > 60.0; Range: >60; Status: F Test: SODIUM LEVEL; Value: 143; Range: 136-145; Units: MEQ/L; Status: F Test: POTASSIUM SERUM; Value: 4.0; Range: 3.5-5.1; Units: MEQ/L; Status: F Test: CHLORIDE LEVEL; Value: 112; Range: 98-107; Abnormal: Above high normal; Units: MEQ/L; Status: F Test: CARBON DIOXIDE LEVEL; Value: 25; Range: 21-32; Units: MEQ/L; Status: F Test: ANION GAP; Value: 6; Range: 8-16; Abnormal: Below low normal; Units: MEQ/L; Status: F Test: CALCIUM LEVEL; Value: 7.7; Range: 8.5-10.1; Abnormal: Below low normal; Units: MG/DL; Status: F Test: AST/SGOT; Value: 21; Range: 15-37; Units: U/L; Status: F Test: ALT/SGPT; Value: 71; Range: 12-78; Units: U/L; Status: F Test: ALKALINE PHOSPHATASE; Value: 86; Range: 45-117; Units: U/L; Status: F Test: BILIRUBIN,TOTAL; Value: 0.2; Range: 0.2-1.0; Units: MG/DL; Status: F Test: TOTAL PROTEIN; Value: 5.8; Range: 6.4-8.2; Abnormal: Below low normal; Units: GM/DL; Status: F Test: ALBUMIN; Value: 2.7; Range: 3.2-5.2; Units: GM/DL; Status: F Test: ALBUMIN/GLOBULIN RATIO; Value: 0.87; Range: 1.00-1.93; Abnormal: Below low normal; Status: F Test Note: ; Units are mL/min/1.73 m2 Chronic Kidney Disease Staging per NKF: Stage I & II GFR >=60 Normal to Mildly Decreased Stage III GFR 30-59 Moderately Decreased Stage IV GFR 15-29 Severely Decreased Stage V GFR <15 Very Little GFR Left ESRD GFR <15 on FELLER SEAM OPERATOR Radiology Order: EKG-ADULT Test: EKG-ADULT REASON FOR EXAMINATION: OD; Stationary ECG Study; [facility] - ED; ; Test Date: 2016-10-24; Pat Name: SUYAPA KESSLER Department:; Room: -; Gender: F Yolk Spray Drier: ranulfo; : 1980 Requested By: Lilian Cuellar; Order Number: [id number] Reading MD: Lilian Cuellar; Measurements; Intervals [place]; Rate: 60 P: 89; NV: 184 QRS: -9; QRSD: 83 T: 16; QT: 408; QTc: 408; Interpretive Statements; ELECTRONIC ATRIAL PACEMAKER; ABNORMAL RHYTHM ECG; ; Electronically Signed On 10-24-2016 20:22:13 EST by Lilian Cuellar; Radiology Order: CT Head Without Contrast Test: CT Head Without Contrast REASON FOR EXAMINATION: altered mental status; CT Head without contrast; ; HISTORY: Altered mental status; ; COMPARISON: 10/16/2016; ; There is no intraparenchymal hemorrhage, acute infarct, mass or midline shift.; The ventricular system is normal in appearance. There is no extra cerebral; collection. There is no fracture. The visualized sinuses are clear.; ; IMPRESSION: There is no intracranial lesion.; ; ; ; ; Signed by; Erasmo Walters MD 10/24/2016 01:19 P; Radiology Order: LIVER US Test: LIVER US REASON FOR EXAMINATION: hepatitis; RIGHT UPPER QUADRANT ULTRASOUND:; ; Real-time sonographic evaluation of the right upper quadrant is performed.; ; The gallbladder has been surgical removed previously. There is no intrahepatic or; extrahepatic biliary dilatation. The common bile duct measures 5 mm. The liver; demonstrates somewhat heterogeneous echotexture. No pancreatic or liver mass is; seen. Evaluation of the pancreas is limited due to bowel gas and body habitus.; Right kidney demonstrates no hydronephrosis with normal size at 10.4 cm in; length. No free fluid is seen.; ; IMPRESSION:; ; Essentially negative right upper quadrant ultrasound status post cholecystectomy.; ; ; ; Signed by; Eric Boone MD 10/24/2016 07:58 P; Radiology Order: MRI Brain without Contrast Test: MRI Brain without Contrast REASON FOR EXAMINATION: r/o CVA; ; MRI of the brain; Clinical history: stroke, possible overdose.; Technique: Multiecho multiplanar MRI images of the brain were obtained without administration of cont; rast. Diffusion weighted images with ADC mapping was also obtained.; Findings:; The ventricles and sulci are symmetric bilaterally. The brain parenchyma demonstrates uniform and nor; mal signal on all sequences. There is no midline shift, mass effect, or extra-axial fluid collection.; The midline intracranial structures do not demonstrate any gross abnormalities. The cervical cranial; junction is intact. The orbits are unremarkable. Mild chronic mucosal thickening in the maxillary si; nuses is appreciated. The other visualized paranasal sinuses and mastoid air cells are clear. The oss; eous structures and superficial soft tissues are unremarkable. The vascular structures demonstrate ap; propriate flow voids.; Impression: Normal MRI of the Brain.; ; Radiology Order: ECG WITH READING ER PHYS Test: ECG WITH READING ER PHYS REASON FOR EXAMINATION: REPEAT; Stationary ECG Study; [facility] - ED; ; Test Date: 2016-10-24; Pat Name: SUYAPA [facility] Department:; Room: [place] [address]; Gender: F Yolk Spray Drier: ct; : 1980 Requested By: Lilian Cuellar; Order Number: [id number] Reading MD: Lilian Cuellar; Measurements; Intervals [place]; Rate: 60 P: 89; NV: 207 QRS: -2; QRSD: 90 T: 18; QT: 433; QTc: 433; Interpretive Statements; ELECTRONIC ATRIAL PACEMAKER; LOW QRS VOLTAGE IN PRECORDIAL LEADS; ABNORMAL RHYTHM ECG; SIMILAR 10/24/16 9:57; Electronically Signed On 10-24-2016 20:23:38 EST by Lilian Cuellar; Outcome: 12:30 Decision to Hospitalize by Provider. 14:33 CT Study completed. 14:34 Discharge Assessment: patient administered narcotics - no. ck10/25 14:32 The following High Risk Discharge criteria are identified: Yes, Patyient has been aa3 cleared by Dr. Sorto . Admitted Patient was ED ellis and was discharged from the ED HOLD area. Condition: good. Discharge instructions given to patient, Instructed on discharge instructions, follow up and referral plans. medication usage, Demonstrated understanding of instructions, medications, Pt was receptive of discharge instructions/ teaching. Prescriptions given X 1. Property :Personal belongings accompany Pt. 14:33 Patient left the ED. aa3 Signatures: Dispatcher [employer] EDMS Lilian Cuellar MD MD sd1 Kathrin Vazquez, RN RN Edwar Ghotra, PSA PSA cs Jordyn Reyes, Reg Reg Dominique MeadowsRN CALLUM ck1 Susana Kilpatrick,CALLUM RN jared3 Rupali Davis Demeishia dem1 [place], Chelsea cmb Kirsty Coleman, NECKTIES PAINTER NECKTIES PAINTER tmm1 Gilda Tilley,RN RN aa3 Edel Angela,RN RN Xochilt Martinez, NECKTIES PAINTER NECKTIES PAINTER rs6 Marian Hector jp5 Lex Garza,RT RT cs15 Corrections: (The following items were deleted from the chart) 10/24 13:41 13:32 FOLATE sent. 1 EDMS 13:41 13:32 VITAMIN B12 LEVEL sent. [facility] EDMS MTDD
--- NOTE | 2016-10-25 18:18 | ECGEPIP ---
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
[2016-10-25] MEDS ORDERED: LITHIUM CARBONATE 300 MG **CR** TAB PO SCH (21:00)
[2016-10-26] MEDS ORDERED: METO10TA2 PO (05:17)
[2016-10-26] MEDS ORDERED: PRAZ2CAP PO (05:17)
[2016-10-26] MEDS ORDERED: ZOMI2.5T PO (05:17)
--- NOTE | 2016-10-26 07:25 | DSES ---
DATE OF ADMISSION: 10/24/2016 DATE OF DISCHARGE: 10/25/2016 PRIMARY CARE PROVIDER: Umanakya Tapia. FINAL DIAGNOSES: 1. Lethargy and metabolic encephalopathy secondary to medication. 2. Questionable, possible medication overdose. 3. Bipolar disorder. 4. Anxiety. 5. Basilar migraine. 6. History of bradyarrhythmia. 7. Congestive heart failure. 8. History of coronary artery bypass grafting (CABG). 9. Chronic anemia. 10. Chronic pain. 11. Gastrointestinal reflux disease (GERD). HISTORY OF PRESENT ILLNESS: This is a 36-year-old female patient with underlying medical history of attention deficit hyperactivity disorder (ADHD), bipolar disorder, depression, bradyarrhythmia with pacemaker, cervical cancer, congestive heart failure, hypertension, migraine headache, questionable transient ischemic attack (TIA), anxiety and asthma. The patient was seen at [facility] twice last month for migraine headache. She was most recently diagnosed with basilar migraines, actually started on DHE and amitriptyline and discharged home four days ago. The patient's reported that the patient was taking DHE twice a day which was prescribed twice a day as needed but has been getting more and more lethargic on the medication, reported taking four bottles, each bottle containing two sprays within the last 48 hours. After discussing this with nurse practitioner at [facility] was told to just watch the patient closely and to not take the medication further but apparently the message was not relayed to the patient by the and the patient was found fatigued and difficulty to arouse and subsequently was brought to the emergency room. The patient was also started on amitriptyline but after reviewing the bottles with the , no additional dose was taken. Urine toxicology was positive for tricyclics. Subsequently the patient was admitted to the hospital. The patient does have a history of suicidal ideation about five years ago. Initially found out about recent stressors, son has been admitted to inpatient mental health for suicidal attempt but as per patient and family the patient found out the new after she had been taking DHE and the patient denies any suicidal thoughts. HOSPITAL COURSE: The patient was admitted to the hospital and monitored under telemetry in the emergency room. Mental status progressively improved. Arterial blood gas (ABG) was sent and repeated. It initially shows mild hypercarbia, later improved. The patient's mental status slowly returned to baseline. Further history was obtained from the patient. Psychiatry was consulted. After a care evaluation it was determined that the patient is not suicidal, has been taking the appropriate dose of medication and it is okay as per psychiatry perspective to be discharged. Medication was adjusted. [place] was added to the regimen. The patient is currently tolerating orals, back to baseline and ready for discharge. VITAL SIGNS: Temperature 97.5, pulse 75, respirations 18, blood pressure 131/78, pulse oximetry 98% on room air. LABORATORY: WBC 9.7, hemoglobin 10.3, hematocrit 32.1, platelets 261. Chemistries: Sodium 143, potassium 4, chloride 112, bicarbonate 25, BUN 11, creatinine 0.6. ABG 7.35, 43.7, 104.7, 23.5. DISCHARGE MEDICATIONS: - lithium 300 mg by mouth nightly for five doses, then followup with psychiatrist for lithium level and further dosage adjustment - home medication of amitriptyline 25 mg by mouth nightly continued - aspirin 325 mg by mouth daily continued - clonazepam 1 mg by mouth twice a day as needed - Cymbalta 60 mg by mouth twice a day - EpiPen as needed - ketorolac 10 mg by mouth every 7 hours as needed - multivitamin one tablet by mouth daily - Zofran 4 mg by mouth as needed - Protonix 40 mg by mouth daily - Tramadol 50 mg by mouth as needed The patient's DHE, dihydroergotamine was discontinued. DISCHARGE INSTRUCTIONS: The patient is instructed to followup with primary care provider in seven days, psychiatrist in five days. Return to the hospital if symptoms worsen. The case was discussed with Dr. Marquez psychiatrist on consultation. edited: 10/26/2016 0830 tkf ERAN
--- NOTE | 2016-10-27 15:35 | EDDOCDS ---
Physician Documentation [facility] Name: Suyapa Watt Age: 36 yrs Sex: Female : 1980 Arrival Date: 10/24/2016 Time: 09:18 Bed Admit Hold Private MD: [place] [facility] [place]: 10/24/16 12:30 Hospitalization ordered by Quincy Varela for Inpatient Admission. Preliminary diagnosis is Altered mental status, unspecified. - Bed requested for Admit. - Status is Inpatient Admission. aa3 - Condition is Stable. - Problem is new. - Symptoms are unchanged. Historical: - Allergies: bee stings (Anaphylaxis); SHELLFISH (Anaphylaxis); Zoloft (Rash); - Home Meds: 1. aspirin 325 mg Oral tab 1 tab once daily (Last dose: 10/23/2016) 2. clonazepam 1 mg Oral tab 1 tab as needed (Last dose: Unknown) 3. Cymbalta 60 mg Oral cpDR 1 cap bid (Last dose: 10/23/2016) 4. ketorolac 10 mg Oral tab every 6 hours (Last dose: 10/23/2016) 5. multivitamin Oral tab daily (Last dose: 10/23/2016) 6. tramadol Unknown Oral as needed (Last dose: 10/23/2016) 7. epinephrine 1 mg/mL (1 mL) injection kit 8. amitriptyline 25 mg Oral tab nightly - PMHx: ADHD; Bipolar disorder; bradycardia; cervical cancer; CHF; Hypertension; HI; TIA; Migraine Headaches; - PSHx: Hysterectomy; Cholecystectomy; Gastric Bypass; Pacemaker Insertion; - Social history: Smoking status: Patient states was never smoker of tobacco. No barriers to communication noted, The patient speaks fluent [place]. - Family history: Not pertinent. - : The pt / caregiver states he / she is not on anticoagulants. Home medication list is obtained from the patient, family members, [employer] import data. - Exposure Risk Screening:: None identified. [employer]: 10/24 09:29 LMP N/A - Hysterectomy kr3 Vital Signs: 09:21 BP 87 / 57; Pulse 60; Resp 16; Temp 99(O); Pulse Ox 97% ; Weight 92.99 kg / 205.01 lbs; cmb Height 5 ft. 2 in. (157.48 cm); Pain 0/10; 09:35 BP 102 / 53 (auto/); ck1 09:36 Pulse 60 MON; Pulse Ox 93% ; ck1 09:51 BP 95 / 53 (auto/); ck1 09:51 Pulse 60 MON; Pulse Ox 93% ; ck1 10:06 Pulse 60 MON; Pulse Ox 93% ; ck1 10:06 BP 93 / 52 (auto/); ck1 10:23 BP 100 / 57 (auto/); ck1 10:24 Pulse 72 MON; Pulse Ox 95% ; ck1 10:36 BP 103 / 57 (auto/); ck1 10:36 Pulse 60 MON; Pulse Ox 95% ; ck1 10:51 BP 100 / 50 (auto/); ck1 10:51 Pulse 60 MON; Pulse Ox 95% ; ck1 11:06 BP 95 / 51 (auto/); ck1 11:06 Pulse 60 MON; Pulse Ox 94% ; ck1 11:21 BP 101 / 51 (auto/); ck1 11:21 Pulse 60 MON; Pulse Ox 95% ; ck1 11:36 BP 87 / 54 (auto/); ck1 11:36 Pulse 60 MON; Pulse Ox 94% ; ck1 11:51 BP 98 / 54 (auto/); ck1 11:51 Pulse 60 MON; Pulse Ox 95% ; ck1 12:06 BP 100 / 54 (auto/); ck1 12:06 Pulse 60 MON; Pulse Ox 94% ; ck1 12:21 BP 101 / 58 (auto/); ck1 12:21 Pulse 60 MON; Pulse Ox 95% ; ck1 12:36 BP 96 / 54 (auto/); ck1 12:36 Pulse 60 MON; Pulse Ox 96% ; ck1 12:51 BP 108 / 73 (auto/); ck1 12:51 Pulse 70 MON; Pulse Ox 92% ; ck1 13:21 BP 115 / 78 (auto/); ck1 13:21 Pulse 60 MON; ck1 13:36 BP 119 / 73 (auto/); ck1 13:36 Pulse 60 MON; ck1 13:51 BP 112 / 71 (auto/); ck1 13:51 Pulse 60 MON; ck1 14:05 Pulse 60 MON; ck1 14:06 BP 113 / 70 (auto/); ck1 14:20 Pulse 60 MON; ck1 14:21 BP 96 / 54 (auto/); ck1 09:21 Body Mass Index 37.49 (92.99 kg, 157.48 cm) cmb MDM: 09:41 Consult PFS/PSA/Kindergarten Instructional Assistant ordered. sd1 09:41 Consult PFS/PSA/Kindergarten Instructional Assistant: Patient's case requires discussion with on-call sd1 Psychiatrist ordered. 09:41 PSA/PFS to call Nursing Electric Repair Supervisor, to enter [place] data [place] if patient sd1 involuntarily admitted or transferred for SI or HI ordered. 09:41 Dog Raiser/Pulse Ox/q 15 min VS ordered. sd1 09:41 Confirm accurate psychiatric medication list and times of last dosage ordered. sd1 09:41 Detain Pt Until Medically/PFS Cleared ordered. sd1 09:41 IV Saline Lock ordered. sd1 09:41 Acetaminophen Level Ordered. EDMS 09:41 Basic Metabolic Profile Ordered. EDMS 09:41 Complete Blood Count Ordered. EDMS 09:41 Drug Eval Toxicology ED Only Ordered. EDMS 09:42 Ethyl Alcohol (ethanol) Ordered. EDMS 09:42 HCG,Serum Qualitative Ordered. EDMS 09:42 Liver Profile Ordered. EDMS 09:42 Salicylate Level Ordered. EDMS 09:42 Thyroid Stimulating Hormone Ordered. EDMS 09:42 NS 0.9% 1000 ml IV at bolus once ordered. sd1 09:42 ECG WITH READING ER PHYS+CARDIAG ordered. EDMS 09:43 Lactic Acid (Boone tube on ice) Ordered. EDMS 09:47 Accucheck ordered. sd1 09:51 PSA/PFS to call Nursing Electric Repair Supervisor, to [place] if patient ck1 involuntarily admitted or transferred for SI or HI complete. 09:51 Consult PFS/PSA/Kindergarten Instructional Assistant: Patient's case requires discussion with on-call ck1 Psychiatrist complete. 09:51 Consult PFS/PSA/Kindergarten Instructional Assistant complete. ck1 10:05 Fingerstick Blood Sugar Ordered. EDMS 10:52 Acetaminophen Level Reviewed. sd1 10:52 Basic Metabolic Profile Reviewed. sd1 10:52 Complete Blood Count Reviewed. sd1 10:52 Drug Eval Toxicology ED Only Reviewed. sd1 10:52 Liver Profile Reviewed. sd1 10:52 Salicylate Level Reviewed. sd1 10:52 Ethyl Alcohol (ethanol) Reviewed. sd1 10:52 HCG,Serum Qualitative Reviewed. sd1 10:52 Thyroid Stimulating Hormone Reviewed. sd1 10:52 Lactic Acid (Boone tube on ice) Reviewed. sd1 10:52 Fingerstick Blood Sugar Reviewed. sd1 10:57 Ammonia (Little Green Tube on Ice, Not Pea Green) Ordered. EDMS 10:59 BED REQUEST+ADM ordered. EDMS 11:38 [facility] Payment Agreement was scanned into [employer] and attached to record. jp5 11:38 Financial registration complete. jp5 11:41 Repeat EKG (put time details section) ordered. sd1 11:41 NS 0.9% 1000 ml IV at bolus once ordered. sd1 11:41 Call Respiratory ordered. sd1 11:42 -Arterial Blood Gas Ordered. EDMS 11:44 Call Respiratory complete. ck1 11:49 Repeat EKG (put time details section) complete. dem1 12:16 Ammonia (Little Green Tube on Ice, Not Pea Green) Reviewed. sd1 12:28 -Arterial Blood Gas Reviewed. sd1 12:29 Misc. Nursing Order ordered. sd1 12:29 naloxone 0.4 mg IVP once ordered. sd1 12:31 CT Head Without Contrast Ordered. EDMS 12:57 LIVER US Ordered. EDMS 12:57 ELECTROCARDIOGRAM ADULT ordered. EDMS 12:58 ARTERIAL BLOOD GAS Ordered. EDMS 13:06 Admission / Observation Status ordered. EDMS 13:07 NPO DIET ordered. EDMS 13:26 MRI Brain without Contrast Ordered. EDMS 13:41 FOLATE Ordered. EDMS 13:41 VITAMIN B12 LEVEL Ordered. EDMS 15:01 Acetaminophen Level Reviewed. sd1 15:01 Basic Metabolic Profile Reviewed. sd1 15:01 Complete Blood Count Reviewed. sd1 15:01 Liver Profile Reviewed. sd1 15:01 Salicylate Level Reviewed. sd1 15:01 ARTERIAL BLOOD GAS Reviewed. sd1 15:01 RETICULOCYTE COUNT Reviewed. sd1 15:01 TOTAL IRON BINDING CAPACIT Reviewed. sd1 15:01 FERRITIN Reviewed. sd1 15:01 Ethyl Alcohol (ethanol) Reviewed. sd1 15:01 HCG,Serum Qualitative Reviewed. sd1 15:01 Thyroid Stimulating Hormone Reviewed. sd1 15:01 FOLATE Reviewed. sd1 15:01 VITAMIN B12 LEVEL Reviewed. sd1 15:01 CT Head Without Contrast Reviewed. sd1 17:13 ECG WITH READING ER PHYS ordered. EDMS 19:32 BASIC METABOLIC PROFILE Ordered. EDMS 19:32 COMPLETE COMPHRENSIVE METABOLI Ordered. EDMS 10/25 00:48 REGULAR DIET ordered. EDMS 13:45 T-Sheet-- Draft Copy was scanned into [employer] and attached to record. gb 13:45 Radiology Report was scanned into [employer] and attached to record. gb 14:37 ECG/EKG was scanned into [employer] and attached to record. gb Point of Care Testing: Blood Glucose: 10/24 09:59 Blood Glucose: 88 mg/dL; ck1 Ranges: Administered Medications: :59 Drug: NS 0.9% 1000 ml [sodium chloride 0.9 % intravenous solution] Route: IV; Rate: ck1 bolus; Site: left antecubital; 11:24 Follow up: IV Status: Completed infusion ck1 11:48 Drug: NS 0.9% 1000 ml [sodium chloride 0.9 % intravenous solution] Route: IV; Rate: ck1 bolus; Site: left antecubital; 12:38 Drug: naloxone 0.4 mg [naloxone 1 mg/mL injection syringe (0.4 mL)] Route: IVP; Site: [facility] left antecubital; Signatures: Dispatcher MedHo EDLilian Da Silva MD MD sd1 Jordyn Reyes, Reg Reg Dominique MeadowsRN RN ck1 Susana Kilpatrick,RN RN kr3 Maurice Heart1 Gilda Tilley RN RN aa3 Marian Hector jp5 The chart was reviewed and I authenticate all verbal orders and agree with the evaluation and treatment provided.Corrections: (The following items were deleted from the chart) 13: 12:58 FERRITIN ordered. EDMS EDMS 13:09 12:58 IRON (FE) ordered. EDMS EDMS 13:09 12:58 TOTAL IRON BINDING CAPACIT ordered. EDMS EDMS 13:10 12:58 RETICULOCYTE COUNT ordered. EDMS EDMS 13:41 13:24 VITAMIN B12 LEVEL ordered. EDMS EDMS 13:41 13:26 FOLATE ordered. EDMS EDMS Attachments: 11:38 [facility] Payment Agreement jp5 10/25 13:45 T-Sheet-- Draft Copy gb 14:37 ECG/EKG gb Chart Complete MTDD
--- NOTE | 2016-10-27 15:35 | EDDOCDS ---
Physician Documentation [facility] Name: Suyapa Watt Age: 36 yrs Sex: Female : 1980 Arrival Date: 10/24/2016 Time: 09:18 Bed Admit Hold Private MD: [place] [facility] [place]position: 10/24/16 12:30 Hospitalization ordered by Quincy Varela for Inpatient Admission. Preliminary diagnosis is Altered mental status, unspecified. - Bed requested for Admit. - Status is Inpatient Admission. aa3 - Condition is Stable. - Problem is new. - Symptoms are unchanged. Historical: - Allergies: bee stings (Anaphylaxis); SHELLFISH (Anaphylaxis); Zoloft (Rash); - Home Meds: 1. aspirin 325 mg Oral tab 1 tab once daily (Last dose: 10/23/2016) 2. clonazepam 1 mg Oral tab 1 tab as needed (Last dose: Unknown) 3. Cymbalta 60 mg Oral cpDR 1 cap bid (Last dose: 10/23/2016) 4. ketorolac 10 mg Oral tab every 6 hours (Last dose: 10/23/2016) 5. multivitamin Oral tab daily (Last dose: 10/23/2016) 6. tramadol Unknown Oral as needed (Last dose: 10/23/2016) 7. epinephrine 1 mg/mL (1 mL) injection kit 8. amitriptyline 25 mg Oral tab nightly - PMHx: ADHD; Bipolar disorder; bradycardia; cervical cancer; CHF; Hypertension; VA; TIA; Migraine Headaches; - PSHx: Hysterectomy; Cholecystectomy; Gastric Bypass; Pacemaker Insertion; - Social history: Smoking status: Patient states was never smoker of tobacco. No barriers to communication noted, The patient speaks fluent [place]. - Family history: Not pertinent. - : The pt / caregiver states he / she is not on anticoagulants. Home medication list is obtained from the patient, family members, [employer] import data. - Exposure Risk Screening:: None identified. SOLAR ENERGY ENGINEER: 10/24 09:29 LMP N/A - Hysterectomy kr3 Vital Signs: 09:21 BP 87 / 57; Pulse 60; Resp 16; Temp 99(O); Pulse Ox 97% ; Weight 92.99 kg / 205.01 lbs; cmb Height 5 ft. 2 in. (157.48 cm); Pain 0/10; 09:35 BP 102 / 53 (auto/); ck1 09:36 Pulse 60 MON; Pulse Ox 93% ; ck1 09:51 BP 95 / 53 (auto/); ck1 09:51 Pulse 60 MON; Pulse Ox 93% ; ck1 10:06 Pulse 60 MON; Pulse Ox 93% ; ck1 10:06 BP 93 / 52 (auto/); ck1 10:23 BP 100 / 57 (auto/); ck1 10:24 Pulse 72 MON; Pulse Ox 95% ; ck1 10:36 BP 103 / 57 (auto/); ck1 10:36 Pulse 60 MON; Pulse Ox 95% ; ck1 10:51 BP 100 / 50 (auto/); ck1 10:51 Pulse 60 MON; Pulse Ox 95% ; ck1 11:06 BP 95 / 51 (auto/); ck1 11:06 Pulse 60 MON; Pulse Ox 94% ; ck1 11:21 BP 101 / 51 (auto/); ck1 11:21 Pulse 60 MON; Pulse Ox 95% ; ck1 11:36 BP 87 / 54 (auto/); ck1 11:36 Pulse 60 MON; Pulse Ox 94% ; ck1 11:51 BP 98 / 54 (auto/); ck1 11:51 Pulse 60 MON; Pulse Ox 95% ; ck1 12:06 BP 100 / 54 (auto/); ck1 12:06 Pulse 60 MON; Pulse Ox 94% ; ck1 12:21 BP 101 / 58 (auto/); ck1 12:21 Pulse 60 MON; Pulse Ox 95% ; ck1 12:36 BP 96 / 54 (auto/); ck1 12:36 Pulse 60 MON; Pulse Ox 96% ; ck1 12:51 BP 108 / 73 (auto/); ck1 12:51 Pulse 70 MON; Pulse Ox 92% ; ck1 13:21 BP 115 / 78 (auto/); ck1 13:21 Pulse 60 MON; ck1 13:36 BP 119 / 73 (auto/); ck1 13:36 Pulse 60 MON; ck1 13:51 BP 112 / 71 (auto/); ck1 13:51 Pulse 60 MON; ck1 14:05 Pulse 60 MON; ck1 14:06 BP 113 / 70 (auto/); ck1 14:20 Pulse 60 MON; ck1 14:21 BP 96 / 54 (auto/); ck1 09:21 Body Mass Index 37.49 (92.99 kg, 157.48 cm) cmb MDM: 09:41 Consult PFS/PSA/Lehr Cutter ordered. sd1 09:41 Consult PFS/PSA/Lehr Cutter: Patient's case requires discussion with on-call sd1 Psychiatrist ordered. 09:41 PSA/PFS to call Nursing Reconciliation Machine Operator, to enter [place] if patient sd1 involuntarily admitted or transferred for SI or HI ordered. 09:41 Medical Corps Officer/Pulse Ox/q 15 min VS ordered. sd1 09:41 Confirm accurate psychiatric medication list and times of last dosage ordered. sd1 09:41 Detain Pt Until Medically/PFS Cleared ordered. sd1 09:41 IV Saline Lock ordered. sd1 09:41 Acetaminophen Level Ordered. EDMS 09:41 Basic Metabolic Profile Ordered. EDMS 09:41 Complete Blood Count Ordered. EDMS 09:41 Drug Eval Toxicology ED Only Ordered. EDMS 09:42 Ethyl Alcohol (ethanol) Ordered. EDMS 09:42 HCG,Serum Qualitative Ordered. EDMS 09:42 Liver Profile Ordered. EDMS 09:42 Salicylate Level Ordered. EDMS 09:42 Thyroid Stimulating Hormone Ordered. EDMS 09:42 NS 0.9% 1000 ml IV at bolus once ordered. sd1 09:42 ECG WITH READING ER PHYS+CARDIAG ordered. EDMS 09:43 Lactic Acid (Boone tube on ice) Ordered. EDMS 09:47 Accucheck ordered. sd1 09:51 PSA/PFS to call Nursing Reconciliation Machine Operator, to [place] if patient ck1 involuntarily admitted or transferred for SI or HI complete. 09:51 Consult PFS/PSA/Lehr Cutter: Patient's case requires discussion with on-call ck1 Psychiatrist complete. 09:51 Consult PFS/PSA/Lehr Cutter complete. ck1 10:05 Fingerstick Blood Sugar Ordered. EDMS 10:52 Acetaminophen Level Reviewed. sd1 10:52 Basic Metabolic Profile Reviewed. sd1 10:52 Complete Blood Count Reviewed. sd1 10:52 Drug Eval Toxicology ED Only Reviewed. sd1 10:52 Liver Profile Reviewed. sd1 10:52 Salicylate Level Reviewed. sd1 10:52 Ethyl Alcohol (ethanol) Reviewed. sd1 10:52 HCG,Serum Qualitative Reviewed. sd1 10:52 Thyroid Stimulating Hormone Reviewed. sd1 10:52 Lactic Acid (Boone tube on ice) Reviewed. sd1 10:52 Fingerstick Blood Sugar Reviewed. sd1 10:57 Ammonia (Little Green Tube on Ice, Not Pea Green) Ordered. EDMS 10:59 BED REQUEST+ADM ordered. EDMS 11:38 [facility] Payment Agreement was scanned into [employer] and attached to record. jp5 11:38 Financial registration complete. jp5 11:41 Repeat EKG (put time details section) ordered. sd1 11:41 NS 0.9% 1000 ml IV at bolus once ordered. sd1 11:41 Call Respiratory ordered. sd1 11:42 -Arterial Blood Gas Ordered. EDMS 11:44 Call Respiratory complete. ck1 11:49 Repeat EKG (put time details section) complete. dem1 12:16 Ammonia (Little Green Tube on Ice, Not Pea Green) Reviewed. sd1 12:28 -Arterial Blood Gas Reviewed. sd1 12:29 Misc. Nursing Order ordered. sd1 12:29 naloxone 0.4 mg IVP once ordered. sd1 12:31 CT Head Without Contrast Ordered. EDMS 12:57 LIVER US Ordered. EDMS 12:57 ELECTROCARDIOGRAM ADULT ordered. EDMS 12:58 ARTERIAL BLOOD GAS Ordered. EDMS 13:06 Admission / Observation Status ordered. EDMS 13:07 NPO DIET ordered. EDMS 13:26 MRI Brain without Contrast Ordered. EDMS 13:41 FOLATE Ordered. EDMS 13:41 VITAMIN B12 LEVEL Ordered. EDMS 15:01 Acetaminophen Level Reviewed. sd1 15:01 Basic Metabolic Profile Reviewed. sd1 15:01 Complete Blood Count Reviewed. sd1 15:01 Liver Profile Reviewed. sd1 15:01 Salicylate Level Reviewed. sd1 15:01 ARTERIAL BLOOD GAS Reviewed. sd1 15:01 RETICULOCYTE COUNT Reviewed. sd1 15:01 TOTAL IRON BINDING CAPACIT Reviewed. sd1 15:01 FERRITIN Reviewed. sd1 15:01 Ethyl Alcohol (ethanol) Reviewed. sd1 15:01 HCG,Serum Qualitative Reviewed. sd1 15:01 Thyroid Stimulating Hormone Reviewed. sd1 15:01 FOLATE Reviewed. sd1 15:01 VITAMIN B12 LEVEL Reviewed. sd1 15:01 CT Head Without Contrast Reviewed. sd1 17:13 ECG WITH READING ER PHYS ordered. EDMS 19:32 BASIC METABOLIC PROFILE Ordered. EDMS 19:32 COMPLETE COMPHRENSIVE METABOLI Ordered. EDMS 10/25 00:48 REGULAR DIET ordered. EDMS 13:45 T-Sheet-- Draft Copy was scanned into [employer] and attached to record. gb 13:45 Radiology Report was scanned into [employer] and attached to record. gb 14:37 ECG/EKG was scanned into [employer] and attached to record. gb Point of Care Testing: Blood Glucose: 10/24 09:59 Blood Glucose: 88 mg/dL; ck1 Ranges: Administered Medications: :59 Drug: NS 0.9% 1000 ml [sodium chloride 0.9 % intravenous solution] Route: IV; Rate: ck1 bolus; Site: left antecubital; 11:24 Follow up: IV Status: Completed infusion ck1 11:48 Drug: NS 0.9% 1000 ml [sodium chloride 0.9 % intravenous solution] Route: IV; Rate: ck1 bolus; Site: left antecubital; 12:38 Drug: naloxone 0.4 mg [naloxone 1 mg/mL injection syringe (0.4 mL)] Route: IVP; Site: [facility] left antecubital; Signatures: Dispatcher MedHo EDLilian Da Silva MD MD sd1 Jordyn Reyes, Reg Reg Dominique MeadowsRN RN ck1 Susana Kilpatrick,RN RN kr3 [facility] Heart1 Gilda Tilley RN RN aa3 Marian Hector jp5 The chart was reviewed and I authenticate all verbal orders and agree with the evaluation and treatment provided.Corrections: (The following items were deleted from the chart) 13: 12:58 FERRITIN ordered. EDMS EDMS 13:09 12:58 IRON (FE) ordered. EDMS EDMS 13:09 12:58 TOTAL IRON BINDING CAPACIT ordered. EDMS EDMS 13:10 12:58 RETICULOCYTE COUNT ordered. EDMS EDMS 13:41 13:24 VITAMIN B12 LEVEL ordered. EDMS EDMS 13:41 13:26 FOLATE ordered. EDMS EDMS Attachments: 11:38 [facility] Payment Agreement jp5 10/25 13:45 T-Sheet-- Draft Copy gb 14:37 ECG/EKG gb Chart Complete MTDD
--- NOTE | 2016-10-27 15:36 | EDDOCDS ---
Nurse's Notes [facility] Name: Suyapa Kessler Age: 36 yrs Sex: Female : 1980 Arrival Date: 10/24/2016 Time: 09:18 Bed Admit Hold Private MD: ROEL Umana Diagnosis: Altered mental status, unspecified Presentation: 10/24 09:24 Presenting complaint: Patient states: Used DHE spray 2 entire vials since Sunday and kr3 Tramodol yesterday. Today no meds. states: noticed confusion 1 day ago which has become worse. Has been using meds for migraine headaches. was admitted at [facility] last week for migraine. Adult Sepsis Screening: The patient does not have new or worsening altered mentation. Patient's respiratory rate is less than 22. Systolic blood pressure is greater than 100. Patient has a qSOFA score of 0- Negative Sepsis Screen. Suicide/Homicide risk assessment- the patient denies having any suicidal and/or homicidal ideations and does not present with any other emotional, behavioral or mental health complaints. Status: Patient is not a service representative or dependent. Transition of care: patient was not received from another setting of care. 09:24 Acuity: ERIN Level 2 kr3 09:24 Method Of Arrival: Wheelchair kr3 Triage Assessment: 09:29 General: Appears in no apparent distress, Behavior is appropriate for age, cooperative. kr3 Pain: Denies pain. HIV screening NA for this visit Offered previously. Neurological: Level of Consciousness is lethargic, Oriented to person, place, Moves all extremities. Gait is unsteady, Speech is slurred. Respiratory: Respiratory effort is even, unlabored. Derm: Skin is pink, warm & dry. CORRECTIONS SPECIALIST: 09:29 LMP N/A - Hysterectomy kr3 Historical: - Allergies: bee stings (Anaphylaxis); SHELLFISH (Anaphylaxis); Zoloft (Rash); - Home Meds: 1. aspirin 325 mg Oral tab 1 tab once daily (Last dose: 10/23/2016) 2. clonazepam 1 mg Oral tab 1 tab as needed (Last dose: Unknown) 3. Cymbalta 60 mg Oral cpDR 1 cap bid (Last dose: 10/23/2016) 4. ketorolac 10 mg Oral tab every 6 hours (Last dose: 10/23/2016) 5. multivitamin Oral tab daily (Last dose: 10/23/2016) 6. tramadol Unknown Oral as needed (Last dose: 10/23/2016) 7. epinephrine 1 mg/mL (1 mL) injection kit 8. amitriptyline 25 mg Oral tab nightly - PMHx: ADHD; Bipolar disorder; bradycardia; cervical cancer; CHF; Hypertension; NC; TIA; Migraine Headaches; - PSHx: Hysterectomy; Cholecystectomy; Gastric Bypass; Pacemaker Insertion; - Social history: Smoking status: Patient states was never smoker of tobacco. No barriers to communication noted, The patient speaks fluent [place]an. - Family history: Not pertinent. - : The pt / caregiver states he / she is not on anticoagulants. Home medication list is obtained from the patient, family members, [employer] import data. - Exposure Risk Screening:: None identified. Screenin:59 Screening information is obtained from the patient. Fall risk: At risk due to apparent ck1 cognitive impairment, The following interventions are performed due to a positive Fall Risk Screen: Fall Risk is added to Special Handling on the patient Summary Screen. A Fall Risk Bracelet was applied to the patient. Side Rails are placed in the up position. A Call Laws is given with instruction to call for help when getting out of bed. Fall Alert bracelet is placed on the patient. Assistance ADL's: requires no assistance with activities of daily living. Abuse/DV Screen: The patient / caregiver reports he/she is: not in a situation that causes fear, pain or injury. Nutritional screening: No deficits noted. home support is adequate. 14:33 Advance Directives: There is no active DNR order. ck1 Assessment: 09:27 General: This nurse spoke with poison control and advised to monitor basic lab work and ead EKG. . 10:00 General: Appears obese, well developed, well nourished, well groomed, Behavior is ck1 drowsy. Pain: Denies pain. Neurological: Level of Consciousness is lethargic, Oriented to person, place, time, Moves all extremities. Speech is slurred, Facial symmetry appears normal. Cardiovascular: Rhythm is regular. Respiratory: Respiratory effort is unlabored, Respiratory pattern is regular, symmetrical. Derm: Skin is intact, is healthy with good turgor, Skin is pink, warm & dry. Musculoskeletal: Circulation, motion, and sensation intact Range of motion intact in all extremities. 11:00 Reassessment: Patient appears in no apparent distress at this time. ck1 12:00 General: Appears obese, well developed, well nourished, well groomed, Behavior is ck1 drowsy. Pain: Denies pain. Neurological: Level of Consciousness is lethargic, Oriented to person, place, time. Cardiovascular: Rhythm is regular. Respiratory: Respiratory effort is unlabored, Respiratory pattern is regular, symmetrical. Derm: Skin is intact, is healthy with good turgor, Skin is pink, warm & dry. 13:00 Reassessment: Patient appears in no apparent distress at this time. ck1 14:31 General: Appears in no apparent distress, Behavior is drowsy. Pain: Denies pain. ck1 Neurological: Level of Consciousness is lethargic, Oriented to person, place, time. Cardiovascular: Rhythm is regular. Respiratory: Respiratory effort is unlabored, Respiratory pattern is regular, symmetrical. Derm: Skin is pink, warm & dry. Vital Signs: 09:21 BP 87 / 57; Pulse 60; Resp 16; Temp 99(O); Pulse Ox 97% ; Weight 92.99 kg; Height 5 ft. cmb 2 in. (157.48 cm); Pain 0/10; 09:35 BP 102 / 53 (auto/); ck1 09:36 Pulse 60 MON; Pulse Ox 93% ; ck1 09:51 BP 95 / 53 (auto/); ck1 09:51 Pulse 60 MON; Pulse Ox 93% ; ck1 10:06 Pulse 60 MON; Pulse Ox 93% ; ck1 10:06 BP 93 / 52 (auto/); ck1 10:23 BP 100 / 57 (auto/); ck1 10:24 Pulse 72 MON; Pulse Ox 95% ; ck1 10:36 BP 103 / 57 (auto/); ck1 10:36 Pulse 60 MON; Pulse Ox 95% ; ck1 10:51 BP 100 / 50 (auto/); ck1 10:51 Pulse 60 MON; Pulse Ox 95% ; ck1 11:06 BP 95 / 51 (auto/); ck1 11:06 Pulse 60 MON; Pulse Ox 94% ; ck1 11:21 BP 101 / 51 (auto/); ck1 11:21 Pulse 60 MON; Pulse Ox 95% ; ck1 11:36 BP 87 / 54 (auto/); ck1 11:36 Pulse 60 MON; Pulse Ox 94% ; ck1 11:51 BP 98 / 54 (auto/); ck1 11:51 Pulse 60 MON; Pulse Ox 95% ; ck1 12:06 BP 100 / 54 (auto/); ck1 12:06 Pulse 60 MON; Pulse Ox 94% ; ck1 12:21 BP 101 / 58 (auto/); ck1 12:21 Pulse 60 MON; Pulse Ox 95% ; ck1 12:36 BP 96 / 54 (auto/); ck1 12:36 Pulse 60 MON; Pulse Ox 96% ; ck1 12:51 BP 108 / 73 (auto/); ck1 12:51 Pulse 70 MON; Pulse Ox 92% ; ck1 13:21 BP 115 / 78 (auto/); ck1 13:21 Pulse 60 MON; ck1 13:36 BP 119 / 73 (auto/); ck1 13:36 Pulse 60 MON; ck1 13:51 BP 112 / 71 (auto/); ck1 13:51 Pulse 60 MON; ck1 14:05 Pulse 60 MON; ck1 14:06 BP 113 / 70 (auto/); ck1 14:20 Pulse 60 MON; ck1 14:21 BP 96 / 54 (auto/); ck1 09:21 Body Mass Index 37.49 (92.99 kg, 157.48 cm) [facility] Vitals: 09:21 Log In Time: October 24, 2016 at 09:18. [facility] ED Course: 09:20 Patient visited by Milli Mccullough. cmb 09:20 Dong [facility] is Private Physician. cmb 09:20 Patient moved to Waiting cmb 09:24 RN notified that patient meets Red Flag criteria. cmb 09:27 Triage Initiated kr3 09:30 Patient visited by Susana Kilpatrick,CALLUM. kr3 09:31 Dominique Choi,CALLUM is Primary Nurse. kr3 09:31 Patient moved to 4 kr3 09:35 Lilian Cuellar MD is Attending Physician. sd1 09:36 Patient visited by Lilian Cuellar MD. sd1 09:51 Lactic Acid (Boone tube on ice) Sent. ck1 09:51 Acetaminophen Level Sent. ck1 09:51 Basic Metabolic Profile Sent. ck1 09:51 Complete Blood Count Sent. ck1 09:51 Ethyl Alcohol (ethanol) Sent. ck1 09:51 HCG,Serum Qualitative Sent. ck1 09:51 Liver Profile Sent. ck1 09:51 Salicylate Level Sent. ck1 09:51 Thyroid Stimulating Hormone Sent. ck1 09:57 EKG done. (by ED staff). Reviewed by Lilian Cuellar MD. dem1 09:59 Patient visited by Dominique Choi,CALLUM. ck1 09:59 Patient visited by [facility]. dem1 09:59 Inserted saline lock: 18 gauge in right antecubital area and blood collected. The ck1 patient tolerated the procedure well. 09:59 Inserted saline lock: 18 gauge in left antecubital area and blood collected. The ck1 patient tolerated the procedure well. 10:00 The patient / caregiver is instructed regarding the plan of care and ED course. ck1 10:01 O2 via nasal cannula \T\ 2L/min. ck1 10:23 Patient visited by Dominique Choi,CALLUM. ck1 10:23 Drug Eval Toxicology ED Only Sent. ck1 11:13 Patient visited by Dominique Choi,CALLUM. ck1 11:38 [facility] Payment Agreement was scanned into [employer] and attached to record. jp5 11:43 Patient visited by Dominique Choi,CALLUM. ck1 11:49 EKG done. (by ED staff). Reviewed by Lilian Cuellar MD. dem1 11:50 Patient visited by [facility]. dem1 12:22 -Arterial Blood Gas Sent. cs15 12:30 Peggy Marx is Hospitalizing Provider. sd1 14:11 CT Head Without Contrast Returned. EDMS 14:34 No procedures done that require assistance. ck1 14:43 ARTERIAL BLOOD GAS Sent. cs15 14:53 Patient moved to Ultrasound br3 15:06 Patient moved to 19 kcs 15:07 Patient moved to 20 ck1 15:52 LIVER US Returned. EDMS 16:30 Patient moved to Admit Hold tmm1 18:55 Primary Nurse role handed off by Dominique Choi,RN ck1 21:16 EKG-ADULT Returned. EDMS 21:16 ECG WITH READING ER PHYS Returned. EDMS 10/25 07:42 Diet: Patient given regular meal. Tolerated well. rs6 07:43 Patient visited by Xochilt Torres PCA. rs6 08:43 MRI Brain without Contrast Returned. EDMS 11:25 Patient visited by Edwar Montes PSA. cs 13:45 T-Sheet-- Draft Copy was scanned into [employer] and attached to record. gb 13:45 Radiology Report was scanned into [employer] and attached to record. gb 14:37 ECG/EKG was scanned into [employer] and attached to record. gb 19:06 ELECTROCARDIOGRAM ADULT Returned. EDMS Administered Medications: 10/24 09:59 Drug: NS 0.9% 1000 ml [sodium chloride 0.9 % intravenous solution] Route: IV; Rate: ck1 bolus; Site: left antecubital; 11:24 Follow up: IV Status: Completed infusion ck1 11:48 Drug: NS 0.9% 1000 ml [sodium chloride 0.9 % intravenous solution] Route: IV; Rate: ck1 bolus; Site: left antecubital; 12:38 Drug: naloxone 0.4 mg [naloxone 1 mg/mL injection syringe (0.4 mL)] Route: IVP; Site: [facility] left antecubital; Point of Care Testing: Blood Glucose: 09:59 Blood Glucose: 88 mg/dL; ck1 Ranges: RT: 12:22 ABG's drawn from left radial artery allens test done and positive pressure held for 5 cs15 minutes no bleeding noted pressure bandage applied specimen sent pt. tolerated well. O2 via nasal cannula \T\ 2L/min. 14:43 ABG's drawn from left radial artery allens test done and positive pressure held for 5 cs15 minutes no bleeding noted pressure bandage applied specimen sent pt. tolerated well. O2 via nasal cannula \T\ 2L/min. Order Results: Lab Order: Acetaminophen Level; SPEC'M 10/24/16 09:48 Test: ACETAMINOPHEN LEVEL; Value: < 2.0; Range: 10.0-30.0; Abnormal: Below low normal; Units: UG/ML; Status: F Test: VITAMIN B12 LEVEL; Range: 247-911; Units: PG/ML; Status: I Test: FOLATE; Range: >5.4; Units: NG/ML; Status: I Lab Order: Basic Metabolic Profile; SPEC'M 10/24/16 09:48 Test: GLUCOSE, FASTING; Value: 77; Range: 70-105; Units: MG/DL; Status: F Test: BLOOD UREA NITROGEN; Value: 17; Range: 7-18; Units: MG/DL; Status: F Test: CREATININE FOR GFR; Value: 0.76; Range: 0.55-1.02; Units: MG/DL; Status: F Test: SODIUM LEVEL; Range: 136-145; Units: MEQ/L; Status: I Test: POTASSIUM SERUM; Range: 3.5-5.1; Units: MEQ/L; Status: I Test: CHLORIDE LEVEL; Range: 98-107; Units: MEQ/L; Status: I Test: CARBON DIOXIDE LEVEL; Range: 21-32; Units: MEQ/L; Status: I Test: ANION GAP; Range: 8-16; Units: MEQ/L; Status: I Test: CALCIUM LEVEL; Range: 8.5-10.1; Units: MG/DL; Status: I Test: GLOMERULAR FILTRATION RATE; Value: > 60.0; Range: >60; Status: F Test: SODIUM LEVEL; Value: 143; Range: 136-145; Units: MEQ/L; Status: F Test: POTASSIUM SERUM; Value: 4.4; Range: 3.5-5.1; Units: MEQ/L; Status: F Test: CHLORIDE LEVEL; Value: 107; Range: 98-107; Units: MEQ/L; Status: F Test: CARBON DIOXIDE LEVEL; Value: 27; Range: 21-32; Units: MEQ/L; Status: F Test: ANION GAP; Value: 9; Range: 8-16; Units: MEQ/L; Status: F Test: CALCIUM LEVEL; Value: 8.0; Range: 8.5-10.1; Abnormal: Below low normal; Units: MG/DL; Status: F Test Note: ; Units are mL/min/1.73 m2 Chronic Kidney Disease Staging per NKF: Stage I & II GFR >=60 Normal to Mildly Decreased Stage III GFR 30-59 Moderately Decreased Stage IV GFR 15-29 Severely Decreased Stage V GFR <15 Very Little GFR Left ESRD GFR <15 on SYNTHETIC FILAMENT SPINNER Lab Order: Complete Blood Count; SPEC'M 10/24/16 09:48 Test: WHITE BLOOD COUNT; Value: 9.7; Range: 4.0-10.0; Units: K/mm3; Status: F Test: RED BLOOD COUNT; Value: 4.11; Range: 4.00-5.40; Units: M/mm3; Status: F Test: HEMOGLOBIN; Value: 10.3; Range: 12.0-16.0; Abnormal: Below low normal; Units: g/dl; Status: F Test: HEMATOCRIT; Value: 32.1; Range: 36.0-47.0; Abnormal: Below low normal; Units: %; Status: F Test: MEAN CORPUSCULAR VOLUME; Value: 78.2; Range: 80.0-96.0; Abnormal: Below low normal; Units: fl; Status: F Test: MEAN CORPUSCULAR HEMOGLOBIN; Value: 25.1; Range: 27.0-33.0; Abnormal: Below low normal; Units: pg; Status: F Test: MEAN CORPUSCULAR HGB CONC; Value: 32.1; Range: 32.0-36.5; Units: g/dl; Status: F Test: RED CELL DISTRIBUTION WIDTH; Value: 13.8; Range: 11.5-14.5; Units: %; Status: F Test: PLATELET COUNT, AUTOMATED; Value: 261; Range: 150-450; Units: k/mm3; Status: F Lab Order: Drug Eval Toxicology ED Only; SPEC'M 10/24/16 10:22 Test: AMPHETAMINES LEVEL URINE; Value: NEGATIVE; Range: NEGATIVE; Status: F Test: BARBITURATES URINE; Value: NEGATIVE; Range: NEGATIVE; Status: F Test: BENZODIAZEPINES URINE; Value: NEGATIVE; Range: NEGATIVE; Status: F Test: CANNABINOIDS URINE; Value: NEGATIVE; Range: NEGATIVE; Status: F Test: COCAINE METABOLITE URINE; Value: NEGATIVE; Range: NEGATIVE; Status: F Test: METHADONE URINE; Value: NEGATIVE; Range: NEGATIVE; Status: F Test: OPIATES URINE; Value: NEGATIVE; Range: NEGATIVE; Status: F Test: TRICYCLIC ANTIDEPRESS URINE; Value: POSITIVE; Range: NEGATIVE; Abnormal: Above high normal; Status: F Test Note: ; ALL PRESUMPTIVE POSITIVE FINDINGS ARE UNCONFIRMED NORMAL VALUES THRESHOLD IN NG/ML AMPHETAMINES 1000 METHAMPHETAMINES 1000 BARBITURATES 300 BENZODIAZEPINES 300 CANNABINOIDS (THC) 50 COCAINE METABOLITE 300 METHADONE 300 OPIATES 300 PHENCYCLIDINE 25 TRICYCLIC ANTIDEPRESSANTS 1000 RESULTS ARE FOR MEDICAL PURPOSES ONLY. ALL URINE SPECIMENS WILL BE SAVED FOR 3 DAYS. IF CONFIRMATION OF A PRESUMPTIVE POSTIVE SCREEN RESULT IS DESIRED, CALL CHEMISTRY ([phone]) AND REQUEST URINE TO BE SENT TO REFERENCE LAB. FOR A LIST OF CLOSELY RELATED COMPOUNDS PLEASE CALL THE LAB. Lab Order: Ethyl Alcohol (ethanol); 10/24/16 09:48 Test: ETHYL ALCOHOL (ETHANOL); Value: 0.004; Range: 0.000-0.010; Units: %; Status: F Lab Order: HCG,Serum Qualitative; 10/24/16 09:48 Test: HCG, SERUM QUALITATIVE; Value: NEGATIVE; Range: NEGATIVE; Status: F Lab Order: Liver Profile; 10/24/16 09:48 Test: AST/SGOT; Value: 44; Range: 15-37; Abnormal: Above high normal; Units: U/L; Status: F Test: ALT/SGPT; Value: 109; Range: 12-78; Abnormal: Above high normal; Units: U/L; Status: F Test: ALKALINE PHOSPHATASE; Value: 103; Range: 45-117; Units: U/L; Status: F Test: BILIRUBIN,TOTAL; Value: 0.3; Range: 0.2-1.0; Units: MG/DL; Status: F Test: BILIRUBIN,DIRECT; Value: < 0.1; Range: 0.0-0.2; Units: MG/DL; Status: F Test: TOTAL PROTEIN; Value: 6.5; Range: 6.4-8.2; Units: GM/DL; Status: F Test: ALBUMIN; Value: 3.5; Range: 3.2-5.2; Units: GM/DL; Status: F Test: ALBUMIN/GLOBULIN RATIO; Value: 1.17; Range: 1.00-1.93; Status: F Lab Order: Salicylate Level; 10/24/16 09:48 Test: SALICYLATE LEVEL; Value: < 1.7; Range: 5.0-30.0; Abnormal: Below low normal; Units: MG/DL; Status: F Lab Order: Thyroid Stimulating Hormone; 10/24/16 09:48 Test: THYROID STIMULATING HORMONE; Value: 2.940; Range: 0.358-3.740; Units: uIU/ML; Status: F Lab Order: Lactic Acid (Boone tube on ice); 10/24/16 09:48 Test: LACTIC ACID LEVEL, LACTATE; Value: 0.7; Range: 0.4-2.0; Units: MMOL/L; Status: F Lab Order: Fingerstick Blood Sugar; 10/24/16 09:57 Test: BEDSIDE GLUCOSE; Value: 88; Range: 70-105; Units: MG/DL; Status: F Lab Order: Ammonia ([place] Tube on Ice, Not [place]); 10/24/16 11:32 Test: AMMONIA; Value: 24; Range: <32; Units: uMOL/L; Status: F Lab Order: -Arterial Blood Gas; 10/24/16 12:20 Test: ABG pH (ARTERIAL); Value: 7.311; Range: 7.350-7.450; Abnormal: Below low normal; Units: UNITS; Status: F Test: ABG PARTIAL PRESSURE CO2; Value: 51.1; Range: 35.0-45.0; Abnormal: Above high normal; Units: mmHg; Status: F Test: ABG PARTIAL PRESSURE O2; Value: 80.6; Range: 75.0-100.0; Units: mmHg; Status: F Test: ABG TOTAL CO2; Value: 26.8; Range: 22.0-29.0; Units: MEQ/L; Status: F Test: ABG HCO3; Value: 25.2; Range: 22.0-26.0; Units: MEQ/L; Status: F Test: ABG BASE EXCESS; Value: -1.3; Range: -2.0-2.0; Status: F Test: ABG STANDARD HCO3; Value: 23.3; Range: 22.0-26.0; Units: MEQ/L; Status: F Test: ABG O2 SATURATION; Value: 94.6; Range: 95.0-99.0; Abnormal: Below low normal; Units: %; Status: F Test: ABG DEVICE; Value: NASAL NORMA; Status: F Lab Order: ARTERIAL BLOOD GAS; [facility] 14[facility]41 Test: ABG pH (ARTERIAL); Value: 7.348; Range: 7.350-7.450; Abnormal: Below low normal; Units: UNITS; Status: F Test: ABG PARTIAL PRESSURE CO2; Value: 43.7; Range: 35.0-45.0; Units: mmHg; Status: F Test: ABG PARTIAL PRESSURE O2; Value: 104.7; Range: 75.0-100.0; Abnormal: Above high normal; Units: mmHg; Status: F Test: ABG TOTAL CO2; Value: 24.8; Range: 22.0-29.0; Units: MEQ/L; Status: F Test: ABG HCO3; Value: 23.5; Range: 22.0-26.0; Units: MEQ/L; Status: F Test: ABG BASE EXCESS; Value: -2.1; Range: -2.0-2.0; Abnormal: Below low normal; Status: F Test: ABG STANDARD HCO3; Value: 22.7; Range: 22.0-26.0; Units: MEQ/L; Status: F Test: ABG O2 SATURATION; Value: 96.9; Range: 95.0-99.0; Units: %; Status: F Lab Order: RETICULOCYTE COUNT; SPEC10/24/16 09:48 Test: RETICULOCYTE % [id number]; Value: 2.10; Range: 0.5-1.5; Abnormal: Above high normal; Units: %; Status: F Test: RETICULOCYTE ABSOLUTE [id number]; Value: 84; Range: 17-77; Abnormal: Above high normal; Units: x10(9)/L; Status: F Test: RETIC HEMOGLOBIN CONTENT CHr; Value: 26.4; Range: 24-36; Units: PG; Status: F Lab Order: TOTAL IRON BINDING CAPACIT; SPEC10/24/16 09:48 Test: IRON (FE); Value: 66; Range: 50-170; Units: UG/DL; Status: F Test: TOTAL IRON BINDING CAPACITY; Value: 475; Range: 250-450; Abnormal: Above high normal; Units: UG/DL; Status: F Test: PERCENT SATURATION; Value: 13.9; Range: 13.2-37.4; Units: %; Status: F Lab Order: FERRITIN; SPEC10/24/16 09:48 Test: FERRITIN; Value: 7; Range: 8-252; Abnormal: Below low normal; Units: NG/ML; Status: F Lab Order: FOLATE; SPEC'10/24/16 09:48 Test: FOLATE; Value: 14.1; Range: >5.4; Units: NG/ML; Status: F Test Note: ; FOLATE NORMAL RANGE NORMAL GREATER THAN 5.4 NG/ML INDETERMINATE 3.4-5.4 NG/ML DEFICIENT LESS THAN 3.4 NG/ML Lab Order: VITAMIN B12 LEVEL; SPEC'10/24/16 09:48 Test: VITAMIN B12 LEVEL; Value: 264; Range: 247-911; Units: PG/ML; Status: F Test Note: ; VITAMIN B12 NORMAL RANGE NORMAL 247 - 911 PG/ML INDETERMINATE 211 - 246 PG/ML DEFICIENT LESS THAN 211 PG/ML Lab Order: COMPLETE COMPHRENSIVE METABOLI; SPEC'10/25/16 07:16 Test: GLUCOSE, FASTING; Value: 78; Range: 70-105; Units: MG/DL; Status: F Test: BLOOD UREA NITROGEN; Value: 11; Range: 7-18; Units: MG/DL; Status: F Test: CREATININE FOR GFR; Value: 0.63; Range: 0.55-1.02; Units: MG/DL; Status: F Test: GLOMERULAR FILTRATION RATE; Value: > 60.0; Range: >60; Status: F Test: SODIUM LEVEL; Value: 143; Range: 136-145; Units: MEQ/L; Status: F Test: POTASSIUM SERUM; Value: 4.0; Range: 3.5-5.1; Units: MEQ/L; Status: F Test: CHLORIDE LEVEL; Value: 112; Range: 98-107; Abnormal: Above high normal; Units: MEQ/L; Status: F Test: CARBON DIOXIDE LEVEL; Value: 25; Range: 21-32; Units: MEQ/L; Status: F Test: ANION GAP; Value: 6; Range: 8-16; Abnormal: Below low normal; Units: MEQ/L; Status: F Test: CALCIUM LEVEL; Value: 7.7; Range: 8.5-10.1; Abnormal: Below low normal; Units: MG/DL; Status: F Test: AST/SGOT; Value: 21; Range: 15-37; Units: U/L; Status: F Test: ALT/SGPT; Value: 71; Range: 12-78; Units: U/L; Status: F Test: ALKALINE PHOSPHATASE; Value: 86; Range: 45-117; Units: U/L; Status: F Test: BILIRUBIN,TOTAL; Value: 0.2; Range: 0.2-1.0; Units: MG/DL; Status: F Test: TOTAL PROTEIN; Value: 5.8; Range: 6.4-8.2; Abnormal: Below low normal; Units: GM/DL; Status: F Test: ALBUMIN; Value: 2.7; Range: 3.2-5.2; Units: GM/DL; Status: F Test: ALBUMIN/GLOBULIN RATIO; Value: 0.87; Range: 1.00-1.93; Abnormal: Below low normal; Status: F Test Note: ; Units are mL/min/1.73 m2 Chronic Kidney Disease Staging per NKF: Stage I & II GFR >=60 Normal to Mildly Decreased Stage III GFR 30-59 Moderately Decreased Stage IV GFR 15-29 Severely Decreased Stage V GFR <15 Very Little GFR Left ESRD GFR <15 on SYNTHETIC FILAMENT SPINNER Radiology Order: EKG-ADULT Test: EKG-ADULT REASON FOR EXAMINATION: OD; Stationary ECG Study; [facility] - ED; ; Test Date: 2016-10-24; Pat Name: SUYAPA KESSLER Department:; Room: -; Gender: F 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; : 1980 Requested By: Lilian Cuellar; Order Number: [id number] Reading MD: Lilian Cuellar; Measurements; Intervals [place]; Rate: 60 P: 89; OH: 184 QRS: -9; QRSD: 83 T: 16; QT: 408; QTc: 408; Interpretive Statements; ELECTRONIC ATRIAL PACEMAKER; ABNORMAL RHYTHM ECG; ; Electronically Signed On 10-24-2016 20:22:13 EST by Lilian Cuellar; Radiology Order: CT Head Without Contrast Test: CT Head Without Contrast REASON FOR EXAMINATION: altered mental status; CT Head without contrast; ; HISTORY: Altered mental status; ; COMPARISON: 10/16/2016; ; There is no intraparenchymal hemorrhage, acute infarct, mass or midline shift.; The ventricular system is normal in appearance. There is no extra cerebral; collection. There is no fracture. The visualized sinuses are clear.; ; IMPRESSION: There is no intracranial lesion.; ; ; ; ; Signed by; Erasmo Walters MD 10/24/2016 01:19 P; Radiology Order: LIVER US Test: LIVER US REASON FOR EXAMINATION: hepatitis; RIGHT UPPER QUADRANT ULTRASOUND:; ; Real-time sonographic evaluation of the right upper quadrant is performed.; ; The gallbladder has been surgical removed previously. There is no intrahepatic or; extrahepatic biliary dilatation. The common bile duct measures 5 mm. The liver; demonstrates somewhat heterogeneous echotexture. No pancreatic or liver mass is; seen. Evaluation of the pancreas is limited due to bowel gas and body habitus.; Right kidney demonstrates no hydronephrosis with normal size at 10.4 cm in; length. 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; : 1980 Requested By: PEGGY MARX; Order Number: [id number] Reading MD: Matty Newman; Measurements; Intervals [place]; Rate: 60 P: 85; OH: 199 QRS: -3; QRSD: 88 T: 20; QT: 404; QTc: 404; Interpretive Statements; ELECTRONIC ATRIAL PACEMAKER; LOW QRS VOLTAGE IN PRECORDIAL LEADS; ABNORMAL RHYTHM ECG; LAST TRACING ON 10/24/2016 AT 11:46:59, NO SIGNIFICANT CHANGES; Electronically Signed On 10-25-2016 18:18:21 EST by Matty Newman; Radiology Order: MRI Brain without Contrast Test: MRI Brain without Contrast REASON FOR EXAMINATION: r/o CVA; ; MRI of the brain; Clinical history: stroke, possible overdose.; Technique: Multiecho multiplanar MRI images of the brain were obtained without administration of cont; rast. Diffusion weighted images with ADC mapping was also obtained.; Findings:; The ventricles and sulci are symmetric bilaterally. The brain parenchyma demonstrates uniform and nor; mal signal on all sequences. There is no midline shift, mass effect, or extra-axial fluid collection.; The midline intracranial structures do not demonstrate any gross abnormalities. The cervical cranial; junction is intact. The orbits are unremarkable. Mild chronic mucosal thickening in the maxillary si; nuses is appreciated. The other visualized paranasal sinuses and mastoid air cells are clear. The oss; eous structures and superficial soft tissues are unremarkable. The vascular structures demonstrate ap; propriate flow voids.; Impression: Normal MRI of the Brain.; ; Radiology Order: ECG WITH READING ER PHYS Test: ECG WITH READING ER PHYS REASON FOR EXAMINATION: REPEAT; Stationary ECG Study; [facility] - ED; ; Test Date: 2016-10-24; Pat Name: [facility] Department:; Room: [place] [address]; Gender: F Sap Security Architect: ct; : 1980 Requested By: Lilian Cuellar; Order Number: [id number] Reading MD: Lilian Cuellar; Measurements; Intervals [place]; Rate: 60 P: 89; OH: 207 QRS: -2; QRSD: 90 T: 18; QT: 433; QTc: 433; Interpretive Statements; ELECTRONIC ATRIAL PACEMAKER; LOW QRS VOLTAGE IN PRECORDIAL LEADS; ABNORMAL RHYTHM ECG; SIMILAR 10/24/16 9:57; Electronically Signed On 10-24-2016 20:23:38 EST by Lilian Cuellar; Outcome: 12:30 Decision to Hospitalize by Provider. sd1 14:33 CT Study completed. ck1 14:34 Discharge Assessment: patient administered narcotics - no. ck1 10/25 14:32 The following High Risk Discharge criteria are identified: Yes, Patyient has been aa3 cleared by Dr. Sorto . Admitted Patient was ED ellis and was discharged from the ED HOLD area. Condition: good. Discharge instructions given to patient, Instructed on discharge instructions, follow up and referral plans. medication usage, Demonstrated understanding of instructions, medications, Pt was receptive of discharge instructions/ teaching. Prescriptions given X 1. Property :Personal belongings accompany Pt. 14:33 Patient left the ED. aa3 Signatures: Dispatcher [employer] EDMS Lilian Cuellar MD MD sd1 Kathrin Vazquez, RN RN kcs Edwar Montes, PSA PSA cs Amy, Jordyn, Reg Reg gb Dominique Choi,RN RN ck1 Susana Kilpatrick,RN RN kr3 Rupali Davis br3 [facility] dem1 Milli Mccullough cmb Kirsty Coleman, ZOOGLER ZOOGLER tmm1 Gilda Tilley,RN RN aa3 Edel Angela,RN RN ead Xochilt Torres, ZOOGLER ZOOGLER rs6 Marian Hector jp5 Lex Garza,RT RT cs15 Corrections: (The following items were deleted from the chart) 10/24 13:41 13:32 FOLATE sent. [facility] 13:41 13:32 VITAMIN B12 LEVEL sent. [facility] ED[facility] Chart Complete MTDD
== END 2016-10-25 14:30 | disposition home or self-care (01) | DRG 917 ==
LOC: M ED 09:18 → M ED INP 13:02
PROVIDERS: ADMIT Internal Medicine; ATTEND Hospitalist
DX: T50.901A Poisoning by unspecified drugs, medicaments and biological substances, accidental (unintentional), initial encounter (principal); G93.41 Metabolic encephalopathy; G43.109 Migraine with aura, not intractable, without status migrainosus; K21.9 Gastro-esophageal reflux disease without esophagitis; D64.9 Anemia, unspecified; F31.9 Bipolar disorder, unspecified; I50.9 Heart failure, unspecified; R53.83 Other fatigue; F41.9 Anxiety disorder, unspecified; Z85.41 Personal history of malignant neoplasm of cervix uteri; Z95.0 Presence of cardiac pacemaker; Z79.899 Other long term (current) drug therapy; Z79.82 Long term (current) use of aspirin; F90.9 Attention-deficit hyperactivity disorder, unspecified type; Z91.038 Other insect allergy status; Z91.013 Allergy to seafood

== ENCOUNTER 2016-10-25 22:01 | Inpatient (IN) | payer MEDICARE, OTHER ==
[~2016-10-25] VITALS: Ht 157.5 cm; Wt 91.0 kg
[~2016-10-25 22:01] MED LIST changes: +AMIT25TA PO; +ASPI325T PO; +CLON1TAB PO; +CYMB60CA3 PO; +EPIP0.3I2 INJ; +KETO10TAB PO; +LITH30TASA PO; +ONDA4TAB6 PO; +PANT40TA2 PO; +TRAM50TA2 PO; +VITMTA PO; +[UNRECOGNIZED DRUG - CODE]
[2016-10-25 22:55] LABS: MEAN CORPUSCULAR HEMOGLOBIN 25.4 pg (27.0-33.0); MEAN CORPUSCULAR HGB CONC 32.6 g/dl (32.0-36.5); MEAN CORPUSCULAR VOLUME 77.7 fl (80.0-96.0)
[2016-10-25 23:14] LABS: ABG DEVICE NASAL CANN; ABG HCO3 23.9 MEQ/L (22.0-26.0); ABG PARTIAL PRESSURE CO2 35.6 mmHg (35.0-45.0); ABG PARTIAL PRESSURE O2 62.9 mmHg (75.0-100.0); ABG STANDARD HCO3 24.4 MEQ/L (22.0-26.0); ABG TOTAL CO2 24.9 MEQ/L (22.0-29.0); ABG pH (ARTERIAL) 7.444 UNITS (7.350-7.450)
[2016-10-25 23:14] LABS: AMPHETAMINES LEVEL URINE NEGATIVE (NEGATIVE); BENZODIAZEPINES URINE NEGATIVE (NEGATIVE); COCAINE METABOLITE URINE NEGATIVE (NEGATIVE); CONTROL LINE INT CTR LINE PRESENT; METHADONE URINE NEGATIVE (NEGATIVE); OPIATES URINE NEGATIVE (NEGATIVE); TRICYCLIC ANTIDEPRESS URINE NEGATIVE (NEGATIVE)
[2016-10-25 23:37] LABS: ALBUMIN 3.6 GM/DL (3.2-5.2); ALBUMIN/GLOBULIN RATIO 1.13 (1.00-1.93); ALKALINE PHOSPHATASE 97 U/L (45-117); ALT/SGPT 72 U/L (12-78); ANION GAP 8 MEQ/L (8-16); AST/SGOT 14 U/L (15-37); BILIRUBIN,DIRECT < 0.1 MG/DL (0.0-0.2); BILIRUBIN,TOTAL 0.3 MG/DL (0.2-1.0); BLOOD UREA NITROGEN 10 MG/DL (7-18); CALCIUM LEVEL 8.1 MG/DL (8.5-10.1); CARBON DIOXIDE LEVEL 27 MEQ/L (21-32); CHLORIDE LEVEL 111 MEQ/L (98-107); CREATININE FOR GFR 0.93 MG/DL (0.55-1.02); GLOMERULAR FILTRATION RATE > 60.0 (>60); GLUCOSE, FASTING 84 MG/DL (70-105); POTASSIUM SERUM 4.1 MEQ/L (3.5-5.1); SODIUM LEVEL 146 MEQ/L (136-145); TOTAL PROTEIN 6.8 GM/DL (6.4-8.2)
[2016-10-25 23:38] LABS: LITHIUM LEVEL < 0.20 MEQ/L (0.60-1.20)
[2016-10-26] MEDS ORDERED: MOM 30ML SUSPENSION UDC PO PRN (05:15)
[2016-10-26] MEDS ORDERED: MAALOX 30 ML SUSP *UDC PO PRN (05:15)
[2016-10-26] MEDS ORDERED: traZODone 50 MG TAB PO PRN (05:15)
[2016-10-26] MEDS ORDERED: METO10TA2 PO (05:17)
[2016-10-26] MEDS ORDERED: ZOMI2.5T PO (05:17)
[2016-10-26] MEDS ORDERED: PRAZ2CAP PO (05:17)
--- NOTE | 2016-10-26 05:29 | EDDOCDS ---
Nurse's Notes [facility] Name: Suyapa Watt Age: 36 yrs Sex: Female : 1980 Arrival Date: 10/25/2016 Time: 22:01 Bed [facility] Private MD: Dong [facility] Diagnosis: Suicide attempt;Major depressive disorder, recurrent, moderate Presentation: 10/25 22:07 Presenting complaint: Patient states: Was seen here yesterday for overdose, told the rs3 staff it was accidental states " i know how to work the system, they let me go home". Dad caught her taking bunch of meds today. took 8 ibuprofen, 4 tramadol, 4 Clonopin. states " i just do not want to live, feel like i am a failure, don't want to be here. i want to and be happy. Adult Sepsis Screening: The patient does not have new or worsening altered mentation. Patient's respiratory rate is less than 22. Systolic blood pressure is greater than 100. Patient has a qSOFA score of 0- Negative Sepsis Screen. Suicide/Homicide risk assessment- The patient admits to and/or has been reported to be having suicidal ideations. The patient reports that he/she has not been admitted to an inpatient mental health facility in the last 30 days. The patient reports that he/she has a recent or current history of substance abuse. The patient reports that he/she has a prior history of suicide attempt and/or organized plan. The patient reports that he/she has experienced a significant life altering event in the last 30 days. Status: Patient is not a septic tank servicer or dependent. Transition of care: patient was not received from another setting of care. 22:07 Method Of Arrival: Walkin/Carried/Asstd rs3 22:07 Acuity: ERIN Level 2 rs3 Triage Assessment: 22:13 General: Appears in no apparent distress. Pain: Denies pain. HIV screening NA for this rs3 visit Offered previously. 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 amitriptyline 25 mg Oral tab nightly 2. aspirin 325 mg Oral tab 1 tab once daily 3. clonazepam 1 mg Oral tab 1 tab as needed 4. Cymbalta 60 mg Oral cpDR 1 cap bid 5. epinephrine 1 mg/mL (1 mL) injection kit 6. ketorolac 10 mg Oral tab every 6 hours 7. multivitamin Oral tab daily 8. Tramadol Oral as needed - PMHx: ADHD; Bipolar disorder; bradycardia; cervical cancer; CHF; Hypertension; AK; Migraine Headaches; TIA; - PSHx: Hysterectomy; Cholecystectomy; Gastric Bypass; Pacemaker Insertion; - The history from nurses notes was reviewed: and I agree with what is documented. - Social history: Smoking status: Patient uses tobacco products, heavy tobacco smoker. No barriers to communication noted, The patient speaks fluent Tanzanian. - Family history: Not pertinent. - : The pt / caregiver states he / she is not on anticoagulants. Home medication list is obtained from the patient. - Exposure Risk Screening:: None identified. - Immunization history:: All immunizations up-to-date. - Social history:: the patient smokes cigarettes the patient drinks alcohol. Screenin:54 Screening information is obtained from the patient. Fall risk: At risk due to apparent af2 chemical impairment, The following interventions are performed due to a positive Fall Risk Screen: Fall Risk is added to Special Handling on the patient Summary Screen. A Fall Risk Bracelet was applied to the patient. Side Rails are placed in the up position. A Call Laws is given with instruction to call for help when getting out of bed. Assistance ADL's: requires no assistance with activities of daily living. Abuse/DV Screen: The patient / caregiver reports he/she is: not in a situation that causes fear, pain or injury. Nutritional screening: No deficits noted. Advance Directives: Further advance directive information is declined. home support is inadequate. Assessment: 22:25 General: Patient reports having taken 8 800 mg Ibuprofen, 6 Klonopin 1mg, 5 Toradol 10 kmg1 mg at approx 1800. 22:49 General: Appears in no apparent distress, Behavior is crying, pt states to this jingle writer af2 "I just want to , if this didn't work I was going to hang myself." pt states that she was seen yesterday for the same, but that she lied about her suicidal intent. father at bedside states that he witnessed yesterday's overdose and that today, pt was witnessed by her 13 year old daughter taking the pills. superficial lacerations noted to bilateral lower extremities in various stages of healing. states that she cuts when she becomes angry. . Neurological: Level of Consciousness is awake, alert, obeys commands, Oriented to person, place, time, Speech is normal, Facial symmetry appears normal. Cardiovascular: Heart tones S1 S2 present Rhythm is sinus tachycardia No ectopy. Respiratory: Airway is patent Respiratory effort is even, unlabored, Breath sounds are clear bilaterally. GI: Denies nausea, vomiting. Derm: Skin is pink, warm & dry. 23:19 General: this jingle writer contacted poison control, their recommendations include 6 hour af2 observation for medical clearance and benzos as needed for agitation. . 23:47 General: pt up out of bed, going through clothing. escorted back to bed. security aide af2 monitoring at this time. pt father took belongings out to car.. 10/26 01:44 Reassessment: Patient appears in no apparent distress at this time. pt resting with tm5 eyes closed, resp easy, no s/s of any distress. Cardiovascular: Rhythm is sinus rhythm No ectopy. Respiratory: Airway is patent Respiratory effort is even, unlabored, Respiratory pattern is regular, symmetrical. 03:13 Reassessment: Patient appears in no apparent distress at this time. pt resting on tm5 stretcher with eyes closed, resp easy, no s/s of any distress. Cardiovascular: Rhythm is sinus rhythm No ectopy. 04:10 General: pt asking for pain medications & Magnesium run for her migraine headache, Dr khanh Boucher aware no orders received, as pt is moved to P2 she states "I hate to be a Bitch but if I don't get anything for this migraine of mine, I am going to leave & you will have to call the concrete mixer to pick me up", Dr Boucher aware of this & PSA aware as well . 05:05 Reassessment: Patient appears in no apparent distress at this time. awake resting on rw1 stretcher quietly, safety maintained will monitor.. Mental Health Eval: 04:46 Status: The patient is not a septic tank servicer or dependent. [facility]: The patient is not an established patient of [facility] Behavioral Health. Referral Information: Evaluation referral is generated by the patient himself / herself. The patient was referred for evaluation because PT attempted suicide by OD. 05:00 Subjective: The patients chief complaint is PT states she was seen her the day before jfb yesterday for OD but she lied and said she had a bad reaction to a med and was discharged to her . PT now stating she was lying but could not explain why she made that attempt other than "I've been suicidal my whole life" PT states that she has 6 children ranging in ages from 19-13 with two sets of twins. She does not have custody of any of her children stating she has not had children in her care for 17 years. Three of her children are with her father and three of her children are with her mother. PT states she was arguing with her and went to her dad's to spend the night but decided to kill herself once there and went into the bathroom and began ingesting pills. PT states her 13 year old daughter walked in and saw what she was doing and told her father who brought her to the ED. PT states that her plan was if the OD did not kill her she had things together prepared to hang herself. PT states she has had multiple suicide attempts in her life and does not know what happiness feels like. Her has told her he is done with her and can no longer take her self harming or depression. PT states while she was here medically her mother informed her that one of her 17 year old sons attempted to hang himself and that he was also in the ED. PT gives this as a reason for her attempt as well. PT continuously states that when she is discharged she will hang herself as none of the depression treatments she has tried through the years have worked. PT feels that she is worthless and her children tell her she is "a POS mother". . Delusions are denied. Patient's mood is depressed, Hallucinations are denied. Mental Health history: ADHD, Bipolar Disorder, depression, self -mutilation, sleep disturbance, suicide attempt by several attempts by PT's report. Most recent is current presentation by OD Mental Health Admissions: [facility] 03/2009, 08/2014, 10/2014 and 11/2014 Current Outpatient Mental Health Services: Psychiatrist / Agency: [facility] Regina Batres. Therapist / Agency: [facility] Nathaniel Howe. Current living environment is The patient currently lives with his / her significant other, of 5 years. Patient presents to Emergency Department with the following symptoms within the past 2 weeks: decreased appetite, depressed mood, feelings of helplessness/hopelessness, marital problem, poor concentration, poor impulse control, sleep disturbance - insomnia, suicidal ideation with attempt/gesture by pills. 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 Mental status exam: Patients appearance is appropriate, Patient's behavior is cooperative, Speech is normal. Affect is flat. Mood is depressed. Hallucinations are denied. Appetite is poor. Memory is good. Energy level is normal. Content of thought is depressive. cannot CFS and is planning to hang self upon discharge Thought process is intact. Cognitive level is oriented to person, place, time and situation Patient's insight is fair. Judgement is poor. Rapport with interviewer is good. Suicidal Ideation present with a plan to kill self by hanging. Homicidal ideation is denied. Disposition: Medically cleared for disposition by Som Boucher MD Psychiatric Consult is performed by phone with Dr Doyle Sorto MD. [facility] Admission Criteria: The patient has had a suicide attempt in the recent past. The patient requires continuous observation and/or control to protect self, others or property. The patient's care requires a multi-modal treatment plan under close supervision and coordination due to the complexity and severity of the patient's symptoms. Legal Status: Patient's legal status will be Emergency admission: 39. [place] Safe Act: [place] Safe Act is applicable to this patient. The patient poses a risk to self or other and the Nursing Electrical Maintenance Man has been notified. He/She will enter the patient's data. Insurance Pre-Certification: Not Required, Medicare and . Awaiting: transfer to [facility]. Vital Signs: 10/25 22:03 BP 151 / 78; Pulse 97; Resp 18 S; Temp 97.8(O); Pulse Ox 98% on R/A; Weight 90.72 kg gr2 (R); Height 5 ft. 2 in. (157.48 cm) (R); Pain /; 22:58 BP 124 / 79 (auto/); tm5 22:58 Pulse 79 MON; Pulse Ox 92% ; tm5 23:00 BP 118 / 79 (auto/); tm5 23:00 Pulse 75 MON; Pulse Ox 93% ; tm5 23:15 BP 124 / 85 (auto/); tm5 23:15 Pulse 70 MON; Pulse Ox 89% ; tm5 23:30 BP 124 / 82 (auto/); tm5 23:30 Pulse 79 MON; Pulse Ox 90% ; tm5 23:45 BP 129 / 86 (auto/); tm5 23:45 Pulse 72 MON; tm5 10/26 00:00 BP 133 / 91 (auto/); tm5 00:00 Pulse 65 MON; Pulse Ox 90% on R/A; tm5 00:15 BP 137 / 92 (auto/); tm5 00:15 Pulse 64 MON; Resp 18; Pulse Ox 94% on R/A; tm5 01:45 BP 128 / 69; Pulse 89; Resp 18; Pulse Ox 93% on R/A; Pain 0/10; tm5 03:13 BP 133 / 88; Pulse 74; Resp 20; Pulse Ox 94% on R/A; Pain 0/10; tm5 05:24 BP 122 / 77; Pulse 70; Resp 16; Temp 97.1(TE); Pulse Ox 95% on R/A; rw1 10/25 22:03 Body Mass Index 36.58 (90.72 kg, 157.48 cm) gr2 Vitals: 10/25 22:03 Log In Time: October 25, 2016 at 22:03. RN notified that patient meets Red Flag gr2 criteria. ED Course: 22:02 Patient visited by Amna Davis. gr2 22:02 Patient moved to Waiting gr2 22:[address] [facility] is Private Physician. gr2 22:04 Patient visited by Amna Davis. gr2 22:04 Patient moved to Pre RCE gr2 22:12 Triage Initiated rs3 22:16 Nallely Agosto,RN is Primary Nurse. cz 22:16 Patient moved to 2 cz 22:17 Som Boucher MD is Attending Physician. pc 22:21 Patient visited by Som Boucher MD. pc 22:35 EKG done. (by ED staff). Reviewed by Som Boucher MD. kb5 22:36 Patient visited by Lanre Bull PCA. kb5 22:48 Complete Blood Count Sent. af2 22:48 Basic Metabolic Profile Sent. af2 22:48 Acetaminophen Level Sent. af2 22:48 [place] Level Sent. af2 22:48 Ethyl Alcohol (ethanol) Sent. af2 22:48 Liver Profile Sent. af2 22:48 Salicylate Level Sent. af2 22:48 Thyroid Stimulating Hormone Sent. af2 22:53 The patient / caregiver is instructed regarding the plan of care and ED course. Patient af2 has correct armband on for positive identification. Placed in psych safe attire. tube builder on. Pulse ox on. NIBP on. 22:53 Missed attempts: 20 gauge X 1 in right antecubital area. af2 22:54 Inserted saline lock: 20 gauge in left antecubital area and blood collected. The af2 patient tolerated the procedure well. No procedures done that require assistance. 22:56 Patient visited by Nallely Agosto RN. af2 23:05 Patient visited by Lanre Bull PCA. kb5 23:07 -Arterial Blood Gas Sent. jh6 23:20 Patient visited by Nallely Agosto RN. af2 23:59 Patient visited by Nallely Agosto RN. af2 23:59 Patient visited by Nallely Agosto RN. af2 10/26 00:55 Patient visited by Lanre Bull PCA. kb5 00:57 Patient visited by Yary Malone RN. tm5 00:57 Report received from Nallely Rizo RN, assumed care of pt at this time. tm5 01:36 Patient visited by Lanre Bull PCA. kb5 01:36 Psych Safety Check: Location: Medical Room. Visual Assessment: Cooperative. kb5 01:44 Patient visited by Yary Malone RN. tm5 03:13 Patient visited by Yary Malone RN. tm5 03:13 [facility] [place] Agreement was scanned into [employer] and attached to record. hs2 04:14 Patient moved to [facility] cz 04:19 Patient visited by Yary Malone RN. tm5 04:19 Discontinued lock intact, bleeding controlled, pressure dressing applied, No tm5 redness/swelling at site. 04:39 Patient visited by Bulmaro Corrigan LPN. rw1 04:44 Patient visited by Tim. Colby tr 04:50 Doyle Sorto MD is Hospitalizing Provider. pc 04:59 Patient visited by Lewis Bowman. tr 05:14 Patient visited by Lewis Bowman. tr 05:18 [facility] Legal paperwork was scanned into [employer] and attached to record. rw1 Attachments: 05:18 [facility] Legal paperwork rw1 RT: 10/25 23:08 ABG's drawn from left radial artery pressure held for 5 minutes no bleeding noted jh6 pressure bandage applied specimen sent pt. tolerated well. Order Results: Lab Order: Acetaminophen Level; SPEC'M 10/25/16 22:44 Test: ACETAMINOPHEN LEVEL; Value: < 2.0; Range: 10.0-30.0; Abnormal: Below low normal; Units: UG/ML; Status: F Lab Order: Basic Metabolic Profile; SPEC'M 10/25/16 22:44 Test: GLUCOSE, FASTING; Value: 84; Range: 70-105; Units: MG/DL; Status: F Test: BLOOD UREA NITROGEN; Value: 10; Range: 7-18; Units: MG/DL; Status: F Test: CREATININE FOR GFR; Value: 0.93; Range: 0.55-1.02; Units: MG/DL; Status: F Test: GLOMERULAR FILTRATION RATE; Value: > 60.0; Range: >60; Status: F Test: SODIUM LEVEL; Value: 146; Range: 136-145; Abnormal: Above high normal; Units: MEQ/L; Status: F Test: POTASSIUM SERUM; Value: 4.1; Range: 3.5-5.1; Units: MEQ/L; Status: F Test: CHLORIDE LEVEL; Value: 111; Range: 98-107; Abnormal: Above high normal; Units: MEQ/L; Status: F Test: CARBON DIOXIDE LEVEL; Value: 27; Range: 21-32; Units: MEQ/L; Status: F Test: ANION GAP; Value: 8; Range: 8-16; Units: MEQ/L; Status: F Test: CALCIUM LEVEL; Value: 8.1; Range: 8.5-10.1; Abnormal: Below low normal; Units: MG/DL; Status: F Test Note: ; Units are mL/min/1.73 m2 Chronic Kidney Disease Staging per NKF: Stage I & II GFR >=60 Normal to Mildly Decreased Stage III GFR 30-59 Moderately Decreased Stage IV GFR 15-29 Severely Decreased Stage V GFR <15 Very Little GFR Left ESRD GFR <15 on COTTON BUYER Lab Order: Complete Blood Count; SPEC'M 10/25/16 22:44 Test: WHITE BLOOD COUNT; Value: 13.0; Range: 4.0-10.0; Abnormal: Above high normal; Units: K/mm3; Status: F Test: RED BLOOD COUNT; Value: 3.94; Range: 4.00-5.40; Abnormal: Below low normal; Units: M/mm3; Status: F Test: HEMOGLOBIN; Value: 10.0; Range: 12.0-16.0; Abnormal: Below low normal; Units: g/dl; Status: F Test: HEMATOCRIT; Value: 30.6; Range: 36.0-47.0; Abnormal: Below low normal; Units: %; Status: F Test: MEAN CORPUSCULAR VOLUME; Value: 77.7; Range: 80.0-96.0; Abnormal: Below low normal; Units: fl; Status: F Test: MEAN CORPUSCULAR HEMOGLOBIN; Value: 25.4; Range: 27.0-33.0; Abnormal: Below low normal; Units: pg; Status: F Test: MEAN CORPUSCULAR HGB CONC; Value: 32.6; Range: 32.0-36.5; Units: g/dl; Status: F Test: RED CELL DISTRIBUTION WIDTH; Value: 14.0; Range: 11.5-14.5; Units: %; Status: F Test: PLATELET COUNT, AUTOMATED; Value: 298; Range: 150-450; Units: k/mm3; Status: F Lab Order: Drug Eval Toxicology ED Only; SPEC'M 10/25/16 22:53 Test: AMPHETAMINES LEVEL URINE; Value: NEGATIVE; Range: NEGATIVE; Status: F Test: BARBITURATES URINE; Value: NEGATIVE; Range: NEGATIVE; Status: F Test: BENZODIAZEPINES URINE; Value: NEGATIVE; Range: NEGATIVE; Status: F Test: CANNABINOIDS URINE; Value: NEGATIVE; Range: NEGATIVE; Status: F Test: COCAINE METABOLITE URINE; Value: NEGATIVE; Range: NEGATIVE; Status: F Test: METHADONE URINE; Value: NEGATIVE; Range: NEGATIVE; Status: F Test: OPIATES URINE; Value: NEGATIVE; Range: NEGATIVE; Status: F Test: TRICYCLIC ANTIDEPRESS URINE; Value: NEGATIVE; Range: NEGATIVE; Status: F Test Note: ; ALL PRESUMPTIVE POSITIVE FINDINGS ARE UNCONFIRMED NORMAL VALUES THRESHOLD IN NG/ML AMPHETAMINES 1000 METHAMPHETAMINES 1000 BARBITURATES 300 BENZODIAZEPINES 300 CANNABINOIDS (THC) 50 COCAINE METABOLITE 300 METHADONE 300 OPIATES 300 PHENCYCLIDINE 25 TRICYCLIC ANTIDEPRESSANTS 1000 RESULTS ARE FOR MEDICAL PURPOSES ONLY. ALL URINE SPECIMENS WILL BE SAVED FOR 3 DAYS. IF CONFIRMATION OF A PRESUMPTIVE POSTIVE SCREEN RESULT IS DESIRED, CALL CHEMISTRY ([phone]) AND REQUEST URINE TO BE SENT TO REFERENCE LAB. FOR A LIST OF CLOSELY RELATED COMPOUNDS PLEASE CALL THE LAB. Lab Order: Ethyl Alcohol (ethanol); SPEC'M 10/25/16:44 Test: ETHYL ALCOHOL (ETHANOL); Value: < 0.003; Range: 0.000-0.010; Units: %; Status: F Lab Order: Liver Profile; SPEC' 10/25/16:44 Test: AST/SGOT; Value: 14; Range: 15-37; Abnormal: Below low normal; Units: U/L; Status: F Test: ALT/SGPT; Value: 72; Range: 12-78; Units: U/L; Status: F Test: ALKALINE PHOSPHATASE; Value: 97; Range: 45-117; Units: U/L; Status: F Test: BILIRUBIN,TOTAL; Value: 0.3; Range: 0.2-1.0; Units: MG/DL; Status: F Test: BILIRUBIN,DIRECT; Value: < 0.1; Range: 0.0-0.2; Units: MG/DL; Status: F Test: TOTAL PROTEIN; Value: 6.8; Range: 6.4-8.2; Units: GM/DL; Status: F Test: ALBUMIN; Value: 3.6; Range: 3.2-5.2; Abnormal: Delta; Units: GM/DL; Status: F Test: ALBUMIN/GLOBULIN RATIO; Value: 1.13; Range: 1.00-1.93; Status: F Lab Order: Salicylate Level; SPEC' 10/25/16:44 Test: SALICYLATE LEVEL; Value: < 1.7; Range: 5.0-30.0; Abnormal: Below low normal; Units: MG/DL; Status: F Lab Order: Thyroid Stimulating Hormone; SPEC' 01/25/17 22:44 Test: THYROID STIMULATING HORMONE; Value: 2.070; Range: 0.358-3.740; Units: uIU/ML; Status: F Lab Order: [place] Level; SPEC'M 10/25/16 22:44 Test: LITHIUM LEVEL; Value: < 0.20; Range: 0.60-1.20; Abnormal: Below low normal; Units: MEQ/L; Status: F Lab Order: -Arterial Blood Gas; SPEC'M 10/25/16 23:02 Test: ABG pH (ARTERIAL); Value: 7.444; Range: 7.350-7.450; Units: UNITS; Status: F Test: ABG PARTIAL PRESSURE CO2; Value: 35.6; Range: 35.0-45.0; Units: mmHg; Status: F Test: ABG PARTIAL PRESSURE O2; Value: 62.9; Range: 75.0-100.0; Abnormal: Below low normal; Units: mmHg; Status: F Test: ABG TOTAL CO2; Value: 24.9; Range: 22.0-29.0; Units: MEQ/L; Status: F Test: ABG HCO3; Value: 23.9; Range: 22.0-26.0; Units: MEQ/L; Status: F Test: ABG BASE EXCESS; Value: 0.0; Range: -2.0-2.0; Status: F Test: ABG STANDARD HCO3; Value: 24.4; Range: 22.0-26.0; Units: MEQ/L; Status: F Test: ABG O2 SATURATION; Value: 92.0; Range: 95.0-99.0; Abnormal: Below low normal; Units: %; Status: F Test: ABG DEVICE; Value: NASAL NORMA; Status: F Outcome: 10/26 04:50 Decision to Hospitalize by Provider. 05:24 Discharge Assessment: Patient awake, alert and oriented x 3. No cognitive and/or rw1 functional deficits noted. Patient verbalized understanding of disposition instructions. patient administered narcotics - no. The following High Risk Discharge criteria are identified: Admitted to Psych accompanied by tech, via wheelchair, with chart. Condition: stable. No special radiology studies were completed. Property removed, inventory done, secured in belongings bag- given to [facility] staff. 05:27 Patient left the ED. rw1 Signatures: Som Boucher MD MD pc Garrison, Kelly, RN RN kmg1 Tristen Torres, CALLUM RN cz Colby, Bulmaro Duvall,RADIATION ONCOLOGY THERAPIST RADIATION ONCOLOGY THERAPIST rw1 Lanre Bull, BET TAKER BET TAKER kb5 Sabrina Black RN RN rs3 Chrery Enciso, PSA PSA jfb Devonte Salguero jh6 Amna Davis 2 Nallely Agosto RN RN af2 Yadira Macias, Reg Reg hs2 Yary Malone RN RN tm5 Corrections: (The following items were deleted from the chart) 10/25 22:18 22:07 Acuity: ERIN Level 3 rs3 rs3 MTDD
--- NOTE | 2016-10-26 05:29 | EDDOCDS ---
Physician Documentation [facility] Name: Suyapa Watt Age: 36 yrs Sex: Female : 1980 Arrival Date: 10/25/2016 Time: 22:01 Bed U2 Private MD: ROEL Umana Disposition: 10/26 04:48 Critical Care: Critical care not applicable. pc Disposition: 10/26/16 04:50 Hospitalization ordered by Doyle Sorto for Inpatient Admission. Preliminary diagnosis are Suicide attempt, Major depressive disorder, recurrent, moderate. - Bed requested for Admit. - Status is Inpatient Admission. rw1 - Condition is Stable. - Problem is new. - Symptoms are unchanged. HPI: 10/25 23:22 This 36 yrs old Female presents to ER via Walkin/Carried/Asstd with pc complaints of Overdose. 23:22 The history is obtained from the patient. The patient presents to the emergency pc department with depression, suicide attempt, intentional drug overdose. She was admitted yesterday for an overdose with subsequent metabolic encephalopathy. After 24 hours, she was medically cleared and seen by Psychiatry, who allowed her discharge home without Psychiatric admission. She took another overdose, the meds listed in the RN notes, because she wants to and says "she knows how to play the system and that Psychiatrist was easy". The patient has experienced similar episodes in the past, multiple times. Historical: - Allergies: bee stings (Anaphylaxis); SHELLFISH (Anaphylaxis); Zoloft (Rash); - Home Meds: 1. amitriptyline 25 mg Oral tab nightly 2. aspirin 325 mg Oral tab 1 tab once daily 3. clonazepam 1 mg Oral tab 1 tab as needed 4. Cymbalta 60 mg Oral cpDR 1 cap bid 5. epinephrine 1 mg/mL (1 mL) injection kit 6. ketorolac 10 mg Oral tab every 6 hours 7. multivitamin Oral tab daily 8. Tramadol Oral as needed - PMHx: ADHD; Bipolar disorder; bradycardia; cervical cancer; CHF; Hypertension; GA; Migraine Headaches; TIA; - PSHx: Hysterectomy; Cholecystectomy; Gastric Bypass; Pacemaker Insertion; - The history from nurses notes was reviewed: and I agree with what is documented. - Social history: Smoking status: Patient uses tobacco products, heavy tobacco smoker. No barriers to communication noted, The patient speaks fluent Niuean. - Family history: Not pertinent. - : The pt / caregiver states he / she is not on anticoagulants. Home medication list is obtained from the patient. - Exposure Risk Screening:: None identified. - Immunization history:: All immunizations up-to-date. - Social history:: the patient smokes cigarettes the patient drinks alcohol. GARMENT EXAMINER: 22:13 LMP N/A - Hysterectomy rs3 ROS: 23:22 All systems are negative except as listed. The psychiatric and neurological components pc are also addressed in the HPI. Exam: 23:22 General Appearance: alert, no acute distress. pc 23:22 ENT: ear, nose and throat normal, pharynx normal. 23:22 Eyes: pupils equal, round and reactive to light, extraocular motions intact. 23:22 Neck: The exam reveals no acute abnormalities. ROM is normal and painless. No nuchal rigidity is noted.. 23:22 Respiratory: breathing is even and unlabored, breath sounds are normal. 23:22 Cardiovascular: regular pulse rate, regular heart rhythm, normal heart sounds, equal and full pulses bilaterally. 23:22 Abdomen: soft, non-tender, no organomegaly, normal bowel sounds. 23:22 Skin: skin color is normal, warm, dry. 23:22 Extremities: The extremities have a grossly normal appearance, are non-tender, without acute ROM abnormalities. 23:22 Neuro: alert, oriented to person, place and time, cranial nerves normal as tested, no motor deficits, no sensory deficits. 23:22 Psych: mood is depressed, suicidal, affect is animated. Vital Signs: 22:03 BP 151 / 78; Pulse 97; Resp 18 S; Temp 97.8(O); Pulse Ox 98% on R/A; Weight 90.72 kg / gr2 200 lbs (R); Height 5 ft. 2 in. (157.48 cm) (R); Pain 2/10; 22:58 BP 124 / 79 (auto/); tm5 22:58 Pulse 79 MON; Pulse Ox 92% ; tm5 23:00 BP 118 / 79 (auto/); tm5 23:00 Pulse 75 MON; Pulse Ox 93% ; tm5 23:15 BP 124 / 85 (auto/); tm5 23:15 Pulse 70 MON; Pulse Ox 89% ; tm5 23:30 BP 124 / 82 (auto/); tm5 23:30 Pulse 79 MON; Pulse Ox 90% ; tm5 23:45 BP 129 / 86 (auto/); tm5 23:45 Pulse 72 MON; tm5 10/26 00:00 BP 133 / 91 (auto/); tm5 00:00 Pulse 65 MON; Pulse Ox 90% on R/A; tm5 00:15 BP 137 / 92 (auto/); tm5 00:15 Pulse 64 MON; Resp 18; Pulse Ox 94% on R/A; tm5 01:45 BP 128 / 69; Pulse 89; Resp 18; Pulse Ox 93% on R/A; Pain 0/10; tm5 03:13 BP 133 / 88; Pulse 74; Resp 20; Pulse Ox 94% on R/A; Pain 0/10; tm5 05:24 BP 122 / 77; Pulse 70; Resp 16; Temp 97.1(TE); Pulse Ox 95% on R/A; rw1 10/25 22:03 Body Mass Index 36.58 (90.72 kg, 157.48 cm) gr2 MDM: 10/25 22:26 Consult PFS/PSA/College Sports Coach: Patient's case requires discussion with on-call pc Psychiatrist ordered. 22:26 PSA/PFS to call Nursing Tar Distillation Supervisor, to enter patient data on [place] Safe [place] if patient pc involuntarily admitted or transferred for SI or HI ordered. 22:26 Call Poison Control ordered. pc 22:26 Security Incident Response Engineer/Pulse Ox/q 15 min VS ordered. pc 22:26 Confirm accurate psychiatric medication list and times of last dosage ordered. pc 22:26 Detain Pt Until Medically/PFS Cleared ordered. pc 22:26 IV Saline Lock ordered. pc 22:26 Call Respiratory ordered. pc 22:28 Acetaminophen Level Ordered. EDMS 22:28 Basic Metabolic Profile Ordered. EDMS 22:28 Complete Blood Count Ordered. EDMS 22:28 Drug Eval Toxicology ED Only Ordered. EDMS 22:28 Ethyl Alcohol (ethanol) Ordered. EDMS 22:28 Liver Profile Ordered. EDMS 22:28 Salicylate Level Ordered. EDMS 22:28 Thyroid Stimulating Hormone Ordered. EDMS 22:28 [place] Level Ordered. EDMS 22:28 -Arterial Blood Gas Ordered. EDMS 22:28 ECG WITH READING ER PHYS+CARDIAG ordered. EDMS 22:49 Call Respiratory complete. af2 23:17 Complete Blood Count Reviewed. pc 23:17 -Arterial Blood Gas Reviewed. pc 23:17 Drug Eval Toxicology ED Only Reviewed. pc 23:22 Differential diagnosis: depression, suicide attempt, intentional OD. Plan: labs, EKG, pc Poison Control, Psych admission when cleared. 23:58 Acetaminophen Level Reviewed. pc 23:58 Basic Metabolic Profile Reviewed. pc 23:58 Liver Profile Reviewed. pc 23:58 Salicylate Level Reviewed. pc 23:58 [place] Level Reviewed. pc 23:58 Ethyl Alcohol (ethanol) Reviewed. pc 23:58 Thyroid Stimulating Hormone Reviewed. pc 10/26 03:08 Financial registration complete. hs2 03:13 [facility] Payment Agreement was scanned into [employer] and attached to record. hs2 04:48 The patient has been medically cleared for psychiatric evaluation, admission and/or pc transfer. [place] Safe Act reporting: The patient poses a significant risk to self or others, and PSA/PFS has notified the Nursing Tar Distillation Supervisor and he/she will complete the required etl data architect. Data reviewed: old medical records, vital signs, nurses notes, EKG(s), lab test results. Test interpretation: EKG LAB - all labs as ordered have been reviewed, interpreted and considered in the overall management of the clinical presentation;. 04:48 The patient has been re-examined and re-evaluated. There is no appreciated change of pc the patient's symptoms at this time. Disposition: The historical points, examination findings, and any diagnostic results supporting the provided diagnosis, were discussed with the patient or legal guardian. The need for further work-up and/or treatment in the hospital was explained. 05:13 Admit to [facility]: ordered. EDMS 05:13 REGULAR DIET ordered. EDMS 05:18 [facility] Legal paperwork was scanned into [employer] and attached to record. rw1 05:18 Consult PFS/PSA/College Sports Coach: Patient's case requires discussion with on-call jfb Psychiatrist complete. 05:19 PSA/PFS to call Nursing Tar Distillation Supervisor, to enter patient data [place] if patient jfb involuntarily admitted or transferred for SI or HI complete. EC:48 Rate is 85 beats/min. Rhythm is regular, Normal Sinus Rhythm. QRS [place] is Normal. DE pc interval is normal. QRS interval is normal. QT interval is normal. No Q waves. T waves are Normal. No ST changes noted. Clinical impression: Normal Sinus Rhythm. Signatures: Dispatcher [employer] EDSom Yi MD MD pc Bulmaro Corrigan,SOCIAL WORKER [employer]CHO[employer]ER [employer] rw1 Sabrina BlackRN RN rs3 Cherry Enciso PSA PSA jfb [place], Amber, RN RN af2 Yadira Macias, Reg Reg hs2 The chart was reviewed and I authenticate all verbal orders and agree with the evaluation and treatment provided.Attachments: 03:13 [facility] Payment Agreement hs2 MTDD
[2016-10-26 05:47] VITALS: BP 117/76
--- NOTE | 2016-10-26 07:28 | ECGEPIP ---
Stationary ECG Study [facility] - ED Test Date: 2016-10-25 Pat Name: ADRI KESSLER Department: Room: [place] [address] Gender: F [address] Reporter: AV : 1980 Requested By: Som Hurd Order Number: [id number] Reading MD: Lilian Cuellar Measurements Intervals [place] Rate: 85 P: 23 NH: 151 QRS: -16 QRSD: 85 T: 30 QT: 360 QTc: 430 Interpretive Statements SINUS RHYTHM LOW QRS VOLTAGE IN PRECORDIAL LEADS PRIOR ATRIAL PACED Electronically Signed On 10-26-2016 7:27:48 EST by Lilian Cuellar
[2016-10-26] MEDS: NICOTINE 21MG/24HR 1 EA TRANSDERMAL TD SCH ×2 (09:00→18:15)
[2016-10-26] MEDS ORDERED: diphenhydrAMINE INJ 50MG/ML VIAL (J1200) As Ordered ONE (10:30)
[2016-10-26] MEDS ORDERED: HALOPERIDOL 5 MG/ML VIAL (J1630) As Ordered ONE (10:30)
[2016-10-26] MEDS ORDERED: LORazepam 2 MG/ML VIAL (J2060) As Ordered ONE (10:30)
[2016-10-26] MEDS ORDERED: diphenhydrAMINE INJ 50MG/ML VIAL (J1200) IM STA (10:32)
[2016-10-26] MEDS ORDERED: HALOPERIDOL 5 MG/ML VIAL (J1630) IM STA ×2 (10:32→10:42)
[2016-10-26] MEDS ORDERED: LORazepam 2 MG/ML VIAL (J2060) IM STA (10:32)
[2016-10-26 10:45] VITALS: BP 148/82
[2016-10-26 10:51] VITALS: BP 134/77
[2016-10-26 11:00] VITALS: BP 138/77
[2016-10-26 11:20] VITALS: BP 129/79
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
--- NOTE | 2016-10-26 11:45 | HPEPDOC ---
Medical History and Physical Date of Admission Oct 26, 2016 at 05:32 History and Physical PCP: Dong ATTENDING: Dr. Donn Longoria HPI: 36 yo female admitted to [facility] for MDD, being medically examined today. No acute medical complaints today. She states she is tired and wants to sleep. She was admitted to [facility] 10/24/16-10/25/16 for possible medication overdose with lethargy and cephalopathy. She was evaluated, medically stabilized, evaluated by psychiatry and felt stable for discharge home. Subsequently she was found by her father taking 8 ibuprofen, 4 tramadol, 4 Klonopin tablets and was brought to the emergency department for evaluation. She is requesting that her routine medications be reordered for her chronic migraine headaches. She states she follows at [facility] in [place] for her migraine headaches. Denies any fevers, chills, weakness, fatigue, AC, CP, SOB, cough, palpitations , abdominal pain, N/V/D or changes in bowel or bladder habits. PMHx: Bipolar disorder Anxiety Chronic migraine- following with [facility]. History of bradycardia arrhythmia/pacemaker- Dr Newman History of CHF- Dr Newman. Hypertension CAD/CABG Obesity/Gastric bypass-BMI 35.9 Chronic anemia Chronic pain- back pain/neck pain. Seen by Dr. Valero in the past GERD H/O Substance use Tobacco use PSHX: Hysterectomy Cholecystectomy Gastric bypass Pacemaker insertion CABG SOCHX: Resides in: [place] Marital Status: Kids: 6 children, 2 Employment: Works at [employer] Tobacco use: 2 packs per day ETOH: Denies Illicit Drugs: History of heroin, cocaine, acid, PCP. States recently buying Suboxone off the street. Patient states she does not know how much she has been using. IV Drug Use: Heroin in the past. Tattoos done unprofessionally: Denies FAMHX: Mother: Alive, estranged. Patient states history of bipolar and suicide attempt. Father: Alive, depression Siblings: One sister at 29, breast cancer. Children: 3 children Alive, well. One son currently hospitalized at [facility] in [place] for suicide attempt. One daughter at [id number] related to chromosome 8 abnormality. One daughter secondary to MVA. Unexpected deaths due to medical reasons: Maternal uncle 2 Suicide. Paternal uncle Suicide. ROS: As noted in HPI, otherwise 11pt ROS of systems reviewed and remarkable only for hysterectomy PE: GEN: 36yoF, appears stated age. Well-nourished, well developed. No acute distress. Alert and oriented x 3. Patient is agitated throughout exam. HEENT: Normocephalic, atraumatic. Pupils are equal, round, and reactive to light. Extraocular movements are intact. No nystagmus appreciated. Sclera are nonicteric. Conjunctiva without injection. Nose midline. Nasal turbinates without bogginess. EACs both patent BL. TMs both visualized and shook with good cone of light, no bulging or erythema. No facial asymmetry. Moist mucous membranes. Dentition fair. Pharynx pink and moist, no cobblestoning. Neck supple , trachea midline. No lymphadenopathy or thyromegaly appreciated. CHEST: Regular rate and rhythm, +S1, +S2 LUNGS: Clear to auscultation bilaterally. No wheezes, rales, or rhonchi. Breathing appears symmetric and easy. Patient is speaking in full sentences. No accessory muscle use. ABD: Round, soft, non-tender, non-distended. +Bowel sounds throughout. No rebound or guarding. No costovertebral angle tenderness. EXT: Pulses 2+ bilaterally dorsalis pedis and radial. No lower extremity edema appreciated. SKIN: Raoul, dry, warm. Capillary refill <2sec. No rashes. Superficial lacerations noted left forearm NEURO: Alert and oriented x 3. Cranial nerves III-XII are intact. No focal deficits appreciated. EK10/25/16 sinus rhythm low voltage, prior atrial paced, 85 bpm. A&P: 36 yo female admitted to [facility] for MDD 1. Psych. Plan per Psychiatry. EKG on file. 2. Nicotine dependence. Patch available. 3. Borderline EKG. No cardiac signs or symptoms appreciated on exam, follow with PCP. 4. Follow up with PCP on discharge. [place]. 5. Substance use. Per psychiatry. 6. Chronic migraine headaches. Continue outpatient regimen of Toradol 10 mg every 6 hours as needed, Reglan 10 mg 3 times a day as needed, tramadol 50 mg every 6 hours as needed and Zomig 2.5 mg as needed at onset of headache. Confirmed this with Attending physician Dr Sorto. Patient states she was prescribed DHE nasal spray as per neurology at [facility] however this was not confirmed as per her recent medication reconciliation and will be held at this time. ISTOP is accessed reference #[id number] with no recent prescriptions for controlled substances however the patient states she feels this at [place]. I have spoken with Pt regarding requesting neurology opinion however the patient declines at this time stating she has been seen at [facility] in the past and adamantly declines opinion at this time. 7. CAD/CABG. continue aspirin 325 mg by mouth daily. 8. Hypertension/CHF. Continue outpatient follow-up with cardiology. Blood pressure currently 134/77. 9. Chronic anemia. He hemoglobin is 10.0. This appears to be her baseline. Iron is noted to be 66, vitamin B12 264, folate 14.1 10/24/16. 10. Obesity/history of gastric bypass. Iron studies, B12, folate as noted above. Also update vitamin D level. 11. History of bradycardia arrhythmia/pacemaker. Continue outpatient follow-up with cardiology. 12. Leukocytosis. Patient is asymptomatic. Afebrile. Recheck CBC in a.m. 13. Hypernatremia, mild. Encourage oral intake. Recheck CMP in a.m. 14. Staff member present throughout exam, Dorota NOLEN. Vital Signs Vital Signs Label Value Date Time Patient Temperature 97.7 degrees F 10/26/16 1051 Temperature Source Tympanic 10/26/16 1051 Pulse 79 10/26/16 1051 Respiratory Rate 20 bpm 10/26/16 1051 Blood Pressure Assessment 134/77 10/26/16 1051 Laboratory Data Labs 24H Laboratory Tests 2 10/25/16 22:44: Acetaminophen Level < 2.0L, Aspartate Amino Transf (AST/SGOT) 14L, Alanine Aminotransferase (ALT/SGPT) 72, Alkaline Phosphatase 97, Total Bilirubin 0.3, Direct Bilirubin < 0.1, Albumin 3.6#, Albumin/Globulin Ratio 1.13, Anion Gap 8, Calcium Level 8.1L, Ethyl Alcohol Level < 0.003, Glomerular Filtration Rate > 60.0, [employer] Level < 0.20L, Salicylates Level < 1.7L, Thyroid Stimulating Hormone (TSH) 2.070, Total Protein 6.8 10/25/16 22:53: Urine Amphetamine Level NEGATIVE, Urine Benzodiazepines Screen NEGATIVE, Urine Cannabinoids NEGATIVE, Urine Cocaine Metabolite NEGATIVE, Urine Opiates Screen NEGATIVE, Urine Barbiturates, Qualitative NEGATIVE, Urine Methadone Screen NEGATIVE, Urine Tricyclic Antidepressants NEGATIVE 10/25/16 23:02: Arterial Blood pH 7.444, Arterial Blood Partial Pressure CO2 35.6, Arterial Blood Partial Pressure O2 62.9L, Arterial Blood Total CO2 24.9, Arterial Blood HCO3 23.9, Arterial Blood Base Excess 0.0, Arterial Blood Oxygen Saturation 92.0L, Blood Gas Bicarbonate Standard 24.4, Oxygen Delivery Device NASAL NORMA CBC/BMP Laboratory Tests 10/25/16 22:44 Red Blood Count 3.94 L, Mean Corpuscular Volume 77.7 L, Mean Corpuscular Hemoglobin 25.4 L, Mean Corpuscular Hemoglobin Concent 32.6, Red Cell Distribution Width 14.0 Home Medications Scheduled Amitriptyline HCl (Amitriptyline HCl) 25 Mg Tab 25 MG PO QHS Aspirin (Aspirin) 325 Mg Tab 325 MG PO DAILY Duloxetine Hcl (Cymbalta) 60 Mg Cap 60 MG PO BID Multivitamins *[facility] STOCKED* (Thera M Plus *[facility] STOCKED*) 1 Tab Tab 1 TAB PO DAILY Prazosin Hcl (Prazosin HCl) 2 Mg Cap 8 MG PO QHS Scheduled PRN (Epipen 2-Arsenio) 0.3 Mg/0.3 Ml Inj 0.3 MG INJ ASDIRECTED PRN PRN ANAPHYLAXIS Clonazepam (Clonazepam) 1 Mg Tab 1 MG PO BID PRN PRN ANXIETY Ketorolac Tromethamine (Ketorolac Tromethamine) 10 Mg Tab 10 MG PO Q6H PRN PRN HEADACHE FILLED 10/20/16 Metoclopramide HCl (Metoclopramide HCl) 10 Mg Tab 10 MG PO TID PRN PRN NAUSEA Tramadol HCl (Tramadol HCl) 50 Mg Tab 50 MG PO QID PRN PRN PAIN Zolmitriptan (Zomig Zmt) 2.5 Mg Tab 2.5 MG PO ASDIRECTED PRN PRN MIGRAINE Allergies Coded Allergies: Bee Venom (Verified Allergy, Severe, Anaphylaxis , 10/06/14) SEAFOOD (Verified Allergy, Severe, Anaphylaxis , 10/06/14) Shellfish Allergy (Verified Allergy, Severe, Anaphylaxis , 10/06/14) Sertraline (Unverified Allergy, Intermediate, RASH, 10/26/16) TAPE (Verified Adverse Reaction, Mild, Burning/Itching of the skin. , ) Lilia Santacruz Oct 26, 2016 11:45
[2016-10-26] MEDS: ASPIRIN 325 MG TAB PO SCH (12:53)
[2016-10-26] MEDS: MULTIVITAMINS/MINERALS THERAP 1 TAB PO SCH (12:53)
[2016-10-26] MEDS: traMADol 50 MG TAB PO PRN (12:54)
[2016-10-26] MEDS: KETOROLAC TROMETHAMINE 10 MG TAB PO PRN ×2 (12:54→21:35)
[2016-10-26] MEDS: METOCLOPRAMIDE 10 MG TAB PO PRN (16:45)
[2016-10-26] MEDS: ACETAMINOPHEN TAB 650MG DOSE (2X325MG) PO PRN (16:46)
[2016-10-26] MEDS: clonazePAM 1 MG TAB PO PRN (22:02)
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
[2016-10-27] MEDS: traMADol 50 MG TAB PO PRN ×2 (00:01→12:23)
[2016-10-27 06:00] VITALS: BP 98/56
[2016-10-27 07:26] LABS: ALBUMIN/GLOBULIN RATIO 1.03 (1.00-1.93); ALKALINE PHOSPHATASE 77 U/L (45-117); ALT/SGPT 44 U/L (12-78); ANION GAP 9 MEQ/L (8-16); AST/SGOT 10 U/L (15-37); BILIRUBIN,TOTAL 0.2 MG/DL (0.2-1.0); BLOOD UREA NITROGEN 17 MG/DL (7-18); CALCIUM LEVEL 7.9 MG/DL (8.5-10.1); CARBON DIOXIDE LEVEL 27 MEQ/L (21-32); CHLORIDE LEVEL 111 MEQ/L (98-107); CREATININE FOR GFR 0.81 MG/DL (0.55-1.02); GLOMERULAR FILTRATION RATE > 60.0 (>60); GLUCOSE, FASTING 82 MG/DL (70-105); POTASSIUM SERUM 4.2 MEQ/L (3.5-5.1); SODIUM LEVEL 147 MEQ/L (136-145); TOTAL PROTEIN 5.9 GM/DL (6.4-8.2)
[2016-10-27 07:36] LABS: MEAN CORPUSCULAR HEMOGLOBIN 24.1 pg (27.0-33.0); MEAN CORPUSCULAR HGB CONC 30.1 g/dl (32.0-36.5); MEAN CORPUSCULAR VOLUME 80.1 fl (80.0-96.0); RED CELL DISTRIBUTION WIDTH 14.4 % (11.5-14.5); WHITE BLOOD COUNT 7.3 K/mm3 (4.0-10.0)
[2016-10-27] MEDS: MULTIVITAMINS/MINERALS THERAP 1 TAB PO SCH (08:29)
[2016-10-27] MEDS: ASPIRIN 325 MG TAB PO SCH (08:30)
[2016-10-27] MEDS: NICOTINE 21MG/24HR 1 EA TRANSDERMAL TD SCH (08:30)
[2016-10-27] MEDS: METOCLOPRAMIDE 10 MG TAB PO PRN ×2 (09:56→19:20)
[2016-10-27] MEDS: KETOROLAC TROMETHAMINE 10 MG TAB PO PRN ×2 (09:57→20:16)
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
[2016-10-27] MEDS: ZOLMitriptan TABLET 2.5MG PO PRN (10:54)
--- NOTE | 2016-10-27 11:16 | REP ---
LUMBAR SPINE, FIVE VIEWS: HISTORY: Back pain. There is no acute fracture or subluxation. The L4-5 intervertebral disc is decreased in height consistent with disc degeneration. The facet joints are normal in appearance. IMPRESSION: Degenerative change as described above. Signed by Erasmo Walters MD 10/27/2016 11:36 A
--- NOTE | 2016-10-27 11:17 | REP ---
LEFT ELBOW, FOUR VIEWS: HISTORY: Pain. There is no acute fracture or dislocation. The joint space is normal in appearance. IMPRESSION: There is no acute fracture or dislocation. Signed by Erasmo Walters MD 10/27/2016 11:36 A
--- NOTE | 2016-10-27 11:33 | REP ---
RIGHT HAND, FOUR VIEWS: HISTORY: Pain. There is no acute fracture or dislocation. The joint spaces are normal in appearance. IMPRESSION: There is no acute fracture or dislocation. LEFT HAND, FOUR VIEWS: There is no acute fracture or dislocation. The joint spaces are normal in appearance. IMPRESSION: There is no acute fracture or dislocation. Signed by Erasmo Walters MD 10/27/2016 11:35 A
--- NOTE | 2016-10-27 11:34 | REP ---
RIGHT WRIST, FOUR VIEWS: HISTORY: Pain. There is no acute fracture or dislocation. The joint spaces are normal in appearance. IMPRESSION: There is no acute fracture or dislocation. LEFT WRIST, FOUR VIEWS: HISTORY: Pain. There is no acute fracture or dislocation. The joint spaces are normal in appearance. IMPRESSION: There is no acute fracture or dislocation. Signed by Erasmo Walters MD 10/27/2016 11:35 A
[2016-10-27] MEDS: clonazePAM 1 MG TAB PO PRN (12:21)
[2016-10-27] MEDS ORDERED: QUEtiapine FUMARATE 50 MG TAB PO ONE (13:30)
[2016-10-27] MEDS: LITHIUM CARBONATE 300 MG CAP PO SCH ×2 (13:52→20:16)
[2016-10-27] MEDS: DULoxetine 30 MG CAP (CYMBALTA) PO SCH (13:52)
[2016-10-27 18:19] VITALS: BP 136/66
[2016-10-27] MEDS: AMITRIPTYLINE 50 MG TAB PO SCH (20:16)
[2016-10-27] MEDS: QUEtiapine FUMARATE 200 MG TAB PO SCH (20:16)
--- NOTE | 2016-10-28 06:29 | EDDOCDS ---
Physician Documentation [facility] Name: Suyapa Watt Age: 36 yrs Sex: Female : 1980 Arrival Date: 10/25/2016 Time: 22:01 Bed U2 Private MD: ROEL Umana Disposition: 10/26 04:48 Critical Care: Critical care not applicable. pc Disposition: 10/26/16 04:50 Hospitalization ordered by Doyle Sorto for Inpatient Admission. Preliminary diagnosis are Suicide attempt, Major depressive disorder, recurrent, moderate. - Bed requested for Admit. - Status is Inpatient Admission. rw1 - Condition is Stable. - Problem is new. - Symptoms are unchanged. HPI: 10/25 23:22 This 36 yrs old Female presents to ER via Walkin/Carried/Asstd with pc complaints of Overdose. 23:22 The history is obtained from the patient. The patient presents to the emergency pc department with depression, suicide attempt, intentional drug overdose. She was admitted yesterday for an overdose with subsequent metabolic encephalopathy. After 24 hours, she was medically cleared and seen by Psychiatry, who allowed her discharge home without Psychiatric admission. She took another overdose, the meds listed in the RN notes, because she wants to and says "she knows how to play the system and that Psychiatrist was easy". The patient has experienced similar episodes in the past, multiple times. Historical: - Allergies: bee stings (Anaphylaxis); SHELLFISH (Anaphylaxis); Zoloft (Rash); - Home Meds: 1. amitriptyline 25 mg Oral tab nightly 2. aspirin 325 mg Oral tab 1 tab once daily 3. clonazepam 1 mg Oral tab 1 tab as needed 4. Cymbalta 60 mg Oral cpDR 1 cap bid 5. epinephrine 1 mg/mL (1 mL) injection kit 6. ketorolac 10 mg Oral tab every 6 hours 7. multivitamin Oral tab daily 8. Tramadol Oral as needed - PMHx: ADHD; Bipolar disorder; bradycardia; cervical cancer; CHF; Hypertension; [place]; Migraine Headaches; TIA; - PSHx: Hysterectomy; Cholecystectomy; Gastric Bypass; Pacemaker Insertion; - The history from nurses notes was reviewed: and I agree with what is documented. - Social history: Smoking status: Patient uses tobacco products, heavy tobacco smoker. No barriers to communication noted, The patient speaks fluent Botswanan. - Family history: Not pertinent. - : The pt / caregiver states he / she is not on anticoagulants. Home medication list is obtained from the patient. - Exposure Risk Screening:: None identified. - Immunization history:: All immunizations up-to-date. - Social history:: the patient smokes cigarettes the patient drinks alcohol. 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 The psychiatric and neurological components pc are also addressed in the HPI. Exam: 23:22 General Appearance: alert, no acute distress. pc 23:22 ENT: ear, nose and throat normal, pharynx normal. 23:22 Eyes: pupils equal, round and reactive to light, extraocular motions intact. 23:22 Neck: The exam reveals no acute abnormalities. ROM is normal and painless. No nuchal rigidity is noted.. 23:22 Respiratory: breathing is even and unlabored, breath sounds are normal. 23:22 Cardiovascular: regular pulse rate, regular heart rhythm, normal heart sounds, equal and full pulses bilaterally. 23:22 Abdomen: soft, non-tender, no organomegaly, normal bowel sounds. 23:22 Skin: skin color is normal, warm, dry. 23:22 Extremities: The extremities have a grossly normal appearance, are non-tender, without acute ROM abnormalities. 23:22 Neuro: alert, oriented to person, place and time, cranial nerves normal as tested, no motor deficits, no sensory deficits. 23:22 Psych: mood is depressed, suicidal, affect is animated. Vital Signs: 22:03 BP 151 / 78; Pulse 97; Resp 18 S; Temp 97.8(O); Pulse Ox 98% on R/A; Weight 90.72 kg / gr2 200 lbs (R); Height 5 ft. 2 in. (157.48 cm) (R); Pain 2/10; 22:58 BP 124 / 79 (auto/); tm5 22:58 Pulse 79 MON; Pulse Ox 92% ; tm5 23:00 BP 118 / 79 (auto/); tm5 23:00 Pulse 75 MON; Pulse Ox 93% ; tm5 23:15 BP 124 / 85 (auto/); tm5 23:15 Pulse 70 MON; Pulse Ox 89% ; tm5 23:30 BP 124 / 82 (auto/); tm5 23:30 Pulse 79 MON; Pulse Ox 90% ; tm5 23:45 BP 129 / 86 (auto/); tm5 23:45 Pulse 72 MON; tm5 10/26 00:00 BP 133 / 91 (auto/); tm5 00:00 Pulse 65 MON; Pulse Ox 90% on R/A; tm5 00:15 BP 137 / 92 (auto/); tm5 00:15 Pulse 64 MON; Resp 18; Pulse Ox 94% on R/A; tm5 01:45 BP 128 / 69; Pulse 89; Resp 18; Pulse Ox 93% on R/A; Pain 0/10; tm5 03:13 BP 133 / 88; Pulse 74; Resp 20; Pulse Ox 94% on R/A; Pain 0/10; tm5 05:24 BP 122 / 77; Pulse 70; Resp 16; Temp 97.1(TE); Pulse Ox 95% on R/A; rw1 10/25 22:03 Body Mass Index 36.58 (90.72 kg, 157.48 cm) gr2 MDM: 10/25 22:26 Consult PFS/PSA/Preschool Director: Patient's case requires discussion with on-call pc Psychiatrist ordered. 22:26 PSA/PFS to call Nursing Charcoal Burner [employer], to enter patient data on [place] Safe [place] if patient pc involuntarily admitted or transferred for SI or HI ordered. 22:26 Call Poison Control ordered. pc 22:26 Machine Packager/Pulse Ox/q 15 min VS ordered. pc 22:26 Confirm accurate psychiatric medication list and times of last dosage ordered. pc 22:26 Detain Pt Until Medically/PFS Cleared ordered. pc 22:26 IV Saline Lock ordered. pc 22:26 Call Respiratory ordered. pc 22:28 Acetaminophen Level Ordered. EDMS 22:28 Basic Metabolic Profile Ordered. EDMS 22:28 Complete Blood Count Ordered. EDMS 22:28 Drug Eval Toxicology ED Only Ordered. EDMS 22:28 Ethyl Alcohol (ethanol) Ordered. EDMS 22:28 Liver Profile Ordered. EDMS 22:28 Salicylate Level Ordered. EDMS 22:28 Thyroid Stimulating Hormone Ordered. EDMS 22:28 [place] Level Ordered. EDMS 22:28 -Arterial Blood Gas Ordered. EDMS 22:28 ECG WITH READING ER PHYS+CARDIAG ordered. EDMS 22:49 Call Respiratory complete. af2 23:17 Complete Blood Count Reviewed. pc 23:17 -Arterial Blood Gas Reviewed. pc 23:17 Drug Eval Toxicology ED Only Reviewed. pc 23:22 Differential diagnosis: depression, suicide attempt, intentional OD. Plan: labs, EKG, pc Poison Control, Psych admission when cleared. 23:58 Acetaminophen Level Reviewed. pc 23:58 Basic Metabolic Profile Reviewed. pc 23:58 Liver Profile Reviewed. pc 23:58 Salicylate Level Reviewed. pc 23:58 [place] Level Reviewed. pc 23:58 Ethyl Alcohol (ethanol) Reviewed. pc 23:58 Thyroid Stimulating Hormone Reviewed. pc 10/26 03:08 Financial registration complete. hs2 03:13 [facility] Payment Agreement was scanned into [employer] and attached to record. hs2 04:48 The patient has been medically cleared for psychiatric evaluation, admission and/or pc transfer. [place] Safe Act reporting: The patient poses a significant risk to self or others, and PSA/PFS has notified the Nursing Charcoal Burner [employer] and he/she will complete the required data warehouse consultant. Data reviewed: old medical records, vital signs, nurses notes, EKG(s), lab test results. Test interpretation: EKG LAB - all labs as ordered have been reviewed, interpreted and considered in the overall management of the clinical presentation;. 04:48 The patient has been re-examined and re-evaluated. There is no appreciated change of pc the patient's symptoms at this time. Disposition: The historical points, examination findings, and any diagnostic results supporting the provided diagnosis, were discussed with the patient or legal guardian. The need for further work-up and/or treatment in the hospital was explained. 05:13 Admit to [facility]: ordered. EDMS 05:13 REGULAR DIET ordered. EDMS 05:18 [facility] Legal paperwork was scanned into [employer] and attached to record. rw1 05:18 Consult PFS/PSA/Preschool Director: Patient's case requires discussion with on-call jfb Psychiatrist complete. 05:19 PSA/PFS to call Nursing Charcoal Burner [employer], to enter patient data [place] if patient jfb involuntarily admitted or transferred for SI or HI complete. 09:45 ECG/EKG was scanned into [employer] and attached to record. EC:48 Rate is 85 beats/min. Rhythm is regular, Normal Sinus Rhythm. QRS [place] is Normal. [place] pc interval is normal. QRS interval is normal. QT interval is normal. No Q waves. T waves are Normal. No ST changes noted. Clinical impression: Normal Sinus Rhythm. Signatures: Dispatcher [employer] EDMS Som Boucher MD MD pc Jordyn Reyes, Reg Reg gb Bulmaro Corrigan,SWITCH ADJUSTER SWITCH ADJUSTER rw1 Sabrina BlackRN RN rs3 Cherry Enciso, PSA PSA Nallely Iraheta RN RN af2 Yadira Macias, Reg Reg hs2 The chart was reviewed and I authenticate all verbal orders and agree with the evaluation and treatment provided.Attachments: 03:13 [facility] Payment Agreement hs2 09:45 ECG/EKG gb Chart Complete MTDD
--- NOTE | 2016-10-28 06:29 | EDDOCDS ---
Physician Documentation [facility] Name: Suyapa Watt Age: 36 yrs Sex: Female : 1980 Arrival Date: 10/25/2016 Time: 22:01 Bed U2 Private MD: ROEL Umana Disposition: 10/26 04:48 Critical Care: Critical care not applicable. pc Disposition: 10/26/16 04:50 Hospitalization ordered by Doyle Sorto for Inpatient Admission. Preliminary diagnosis are Suicide attempt, Major depressive disorder, recurrent, moderate. - Bed requested for Admit. - Status is Inpatient Admission. rw1 - Condition is Stable. - Problem is new. - Symptoms are unchanged. HPI: 10/25 23:22 This 36 yrs old Female presents to ER via Walkin/Carried/Asstd with pc complaints of Overdose. 23:22 The history is obtained from the patient. The patient presents to the emergency pc department with depression, suicide attempt, intentional drug overdose. She was admitted yesterday for an overdose with subsequent metabolic encephalopathy. After 24 hours, she was medically cleared and seen by Psychiatry, who allowed her discharge home without Psychiatric admission. She took another overdose, the meds listed in the RN notes, because she wants to and says "she knows how to play the system and that Psychiatrist was easy". The patient has experienced similar episodes in the past, multiple times. Historical: - Allergies: bee stings (Anaphylaxis); SHELLFISH (Anaphylaxis); Zoloft (Rash); - Home Meds: 1. amitriptyline 25 mg Oral tab nightly 2. aspirin 325 mg Oral tab 1 tab once daily 3. clonazepam 1 mg Oral tab 1 tab as needed 4. Cymbalta 60 mg Oral cpDR 1 cap bid 5. epinephrine 1 mg/mL (1 mL) injection kit 6. ketorolac 10 mg Oral tab every 6 hours 7. multivitamin Oral tab daily 8. Tramadol Oral as needed - PMHx: ADHD; Bipolar disorder; bradycardia; cervical cancer; CHF; Hypertension; [place]; Migraine Headaches; TIA; - PSHx: Hysterectomy; Cholecystectomy; Gastric Bypass; Pacemaker Insertion; - The history from nurses notes was reviewed: and I agree with what is documented. - Social history: Smoking status: Patient uses tobacco products, heavy tobacco smoker. No barriers to communication noted, The patient speaks fluent Malian. - Family history: Not pertinent. - : The pt / caregiver states he / she is not on anticoagulants. Home medication list is obtained from the patient. - Exposure Risk Screening:: None identified. - Immunization history:: All immunizations up-to-date. - Social history:: the patient smokes cigarettes the patient drinks alcohol. MARKER DELIVERY: 22:13 LMP N/A - Hysterectomy rs3 ROS: 23:22 All systems are negative except as listed. The psychiatric and neurological components pc are also addressed in the HPI. Exam: 23:22 General Appearance: alert, no acute distress. pc 23:22 ENT: ear, nose and throat normal, pharynx normal. 23:22 Eyes: pupils equal, round and reactive to light, extraocular motions intact. 23:22 Neck: The exam reveals no acute abnormalities. ROM is normal and painless. No nuchal rigidity is noted.. 23:22 Respiratory: breathing is even and unlabored, breath sounds are normal. 23:22 Cardiovascular: regular pulse rate, regular heart rhythm, normal heart sounds, equal and full pulses bilaterally. 23:22 Abdomen: soft, non-tender, no organomegaly, normal bowel sounds. 23:22 Skin: skin color is normal, warm, dry. 23:22 Extremities: The extremities have a grossly normal appearance, are non-tender, without acute ROM abnormalities. 23:22 Neuro: alert, oriented to person, place and time, cranial nerves normal as tested, no motor deficits, no sensory deficits. 23:22 Psych: mood is depressed, suicidal, affect is animated. Vital Signs: 22:03 BP 151 / 78; Pulse 97; Resp 18 S; Temp 97.8(O); Pulse Ox 98% on R/A; Weight 90.72 kg / gr2 200 lbs (R); Height 5 ft. 2 in. (157.48 cm) (R); Pain 2/10; 22:58 BP 124 / 79 (auto/); tm5 22:58 Pulse 79 MON; Pulse Ox 92% ; tm5 23:00 BP 118 / 79 (auto/); tm5 23:00 Pulse 75 MON; Pulse Ox 93% ; tm5 23:15 BP 124 / 85 (auto/); tm5 23:15 Pulse 70 MON; Pulse Ox 89% ; tm5 23:30 BP 124 / 82 (auto/); tm5 23:30 Pulse 79 MON; Pulse Ox 90% ; tm5 23:45 BP 129 / 86 (auto/); tm5 23:45 Pulse 72 MON; tm5 10/26 00:00 BP 133 / 91 (auto/); tm5 00:00 Pulse 65 MON; Pulse Ox 90% on R/A; tm5 00:15 BP 137 / 92 (auto/); tm5 00:15 Pulse 64 MON; Resp 18; Pulse Ox 94% on R/A; tm5 01:45 BP 128 / 69; Pulse 89; Resp 18; Pulse Ox 93% on R/A; Pain 0/10; tm5 03:13 BP 133 / 88; Pulse 74; Resp 20; Pulse Ox 94% on R/A; Pain 0/10; tm5 05:24 BP 122 / 77; Pulse 70; Resp 16; Temp 97.1(TE); Pulse Ox 95% on R/A; rw1 10/25 22:03 Body Mass Index 36.58 (90.72 kg, 157.48 cm) gr2 MDM: 10/25 22:26 Consult PFS/PSA/Poultry Cleaner: Patient's case requires discussion with on-call pc Psychiatrist ordered. 22:26 PSA/PFS to call Nursing Pipe Processor, to enter patient data [place] if patient pc involuntarily admitted or transferred for SI or HI ordered. 22:26 Call Poison Control ordered. pc 22:26 Inventory Transcriber/Pulse Ox/q 15 min VS ordered. pc 22:26 Confirm accurate psychiatric medication list and times of last dosage ordered. pc 22:26 Detain Pt Until Medically/PFS Cleared ordered. pc 22:26 IV Saline Lock ordered. pc 22:26 Call Respiratory ordered. pc 22:28 Acetaminophen Level Ordered. EDMS 22:28 Basic Metabolic Profile Ordered. EDMS 22:28 Complete Blood Count Ordered. EDMS 22:28 Drug Eval Toxicology ED Only Ordered. EDMS 22:28 Ethyl Alcohol (ethanol) Ordered. EDMS 22:28 Liver Profile Ordered. EDMS 22:28 Salicylate Level Ordered. EDMS 22:28 Thyroid Stimulating Hormone Ordered. EDMS 22:28 [place] Level Ordered. EDMS 22:28 -Arterial Blood Gas Ordered. EDMS 22:28 ECG WITH READING ER PHYS+CARDIAG ordered. EDMS 22:49 Call Respiratory complete. af2 23:17 Complete Blood Count Reviewed. pc 23:17 -Arterial Blood Gas Reviewed. pc 23:17 Drug Eval Toxicology ED Only Reviewed. pc 23:22 Differential diagnosis: depression, suicide attempt, intentional OD. Plan: labs, EKG, pc Poison Control, Psych admission when cleared. 23:58 Acetaminophen Level Reviewed. pc 23:58 Basic Metabolic Profile Reviewed. pc 23:58 Liver Profile Reviewed. pc 23:58 Salicylate Level Reviewed. pc 23:58 [place] Level Reviewed. pc 23:58 Ethyl Alcohol (ethanol) Reviewed. pc 23:58 Thyroid Stimulating Hormone Reviewed. pc 10/26 03:08 Financial registration complete. hs2 03:13 [facility] Payment Agreement was scanned into [employer] and attached to record. hs2 04:48 The patient has been medically cleared for psychiatric evaluation, admission and/or pc transfer. [place] Safe Act reporting: The patient poses a significant risk to self or others, and PSA/PFS has notified the Nursing Pipe Processor and he/she will complete the required data mining analyst. Data reviewed: old medical records, vital signs, nurses notes, EKG(s), lab test results. Test interpretation: EKG LAB - all labs as ordered have been reviewed, interpreted and considered in the overall management of the clinical presentation;. 04:48 The patient has been re-examined and re-evaluated. There is no appreciated change of pc the patient's symptoms at this time. Disposition: The historical points, examination findings, and any diagnostic results supporting the provided diagnosis, were discussed with the patient or legal guardian. The need for further work-up and/or treatment in the hospital was explained. 05:13 Admit to [facility]: ordered. EDMS 05:13 REGULAR DIET ordered. EDMS 05:18 [facility] Legal paperwork was scanned into [employer] and attached to record. rw1 05:18 Consult PFS/PSA/Poultry Cleaner: Patient's case requires discussion with on-call jfb Psychiatrist complete. 05:19 PSA/PFS to call Nursing Pipe Processor, to enter patient data [place] if patient jfb involuntarily admitted or transferred for SI or HI complete. 09:45 ECG/EKG was scanned into [employer] and attached to record. EC:48 Rate is 85 beats/min. Rhythm is regular, Normal Sinus Rhythm. QRS [place] is Normal. [place] pc interval is normal. QRS interval is normal. QT interval is normal. No Q waves. T waves are Normal. No ST changes noted. Clinical impression: Normal Sinus Rhythm. Signatures: Dispatcher [employer] EDMS Som Boucher MD MD pc Jodryn Reyes, Reg Reg gb Bulmaro Corrigan,FIELD ASSEMBLY SUPERVISOR FIELD ASSEMBLY SUPERVISOR rw1 Sabrina BlackRN RN rs3 Cherry Enciso, PSA PSA Nallely Iraheta RN RN af2 Yadira Macias, Reg Reg hs2 The chart was reviewed and I authenticate all verbal orders and agree with the evaluation and treatment provided.Attachments: 03:13 [facility] Payment Agreement hs2 09:45 ECG/EKG gb Chart Complete MTDD
--- NOTE | 2016-10-28 06:29 | EDDOCDS ---
Nurse's Notes [facility] Name: Suyapa Watt Age: 36 yrs Sex: Female : 1980 Arrival Date: 10/25/2016 Time: 22:01 Bed [facility] Private MD: Dong [facility] Diagnosis: Suicide attempt;Major depressive disorder, recurrent, moderate Presentation: 10/25 22:07 Presenting complaint: Patient states: Was seen here yesterday for overdose, told the rs3 staff it was accidental states " i know how to work the system, they let me go home". Dad caught her taking bunch of meds today. took 8 ibuprofen, 4 tramadol, 4 Clonopin. states " i just do not want to live, feel like i am a failure, don't want to be here. i want to and be happy. Adult Sepsis Screening: The patient does not have new or worsening altered mentation. Patient's respiratory rate is less than 22. Systolic blood pressure is greater than 100. Patient has a qSOFA score of 0- Negative Sepsis Screen. Suicide/Homicide risk assessment- The patient admits to and/or has been reported to be having suicidal ideations. The patient reports that he/she has not been admitted to an inpatient mental health facility in the last 30 days. The patient reports that he/she has a recent or current history of substance abuse. The patient reports that he/she has a prior history of suicide attempt and/or organized plan. The patient reports that he/she has experienced a significant life altering event in the last 30 days. Status: Patient is not a registered nurse surgical services or dependent. Transition of care: patient was not received from another setting of care. 22:07 Method Of Arrival: Walkin/Carried/Asstd rs3 22:07 Acuity: ERIN Level 2 rs3 Triage Assessment: 22:13 General: Appears in no apparent distress. Pain: Denies pain. HIV screening NA for this rs3 visit Offered previously. FLOORMAN: 22:13 LMP N/A - Hysterectomy rs3 Historical: - Allergies: bee stings (Anaphylaxis); SHELLFISH (Anaphylaxis); Zoloft (Rash); - Home Meds: 1. amitriptyline 25 mg Oral tab nightly 2. aspirin 325 mg Oral tab 1 tab once daily 3. clonazepam 1 mg Oral tab 1 tab as needed 4. Cymbalta 60 mg Oral cpDR 1 cap bid 5. epinephrine 1 mg/mL (1 mL) injection kit 6. ketorolac 10 mg Oral tab every 6 hours 7. multivitamin Oral tab daily 8. Tramadol Oral as needed - PMHx: ADHD; Bipolar disorder; bradycardia; cervical cancer; CHF; Hypertension; [place]; Migraine Headaches; TIA; - PSHx: Hysterectomy; Cholecystectomy; Gastric Bypass; Pacemaker Insertion; - The history from nurses notes was reviewed: and I agree with what is documented. - Social history: Smoking status: Patient uses tobacco products, heavy tobacco smoker. No barriers to communication noted, The patient speaks fluent Swazi. - Family history: Not pertinent. - : The pt / caregiver states he / she is not on anticoagulants. Home medication list is obtained from the patient. - Exposure Risk Screening:: None identified. - Immunization history:: All immunizations up-to-date. - Social history:: the patient smokes cigarettes the patient drinks alcohol. Screenin:54 Screening information is obtained from the patient. Fall risk: At risk due to apparent af2 chemical impairment, The following interventions are performed due to a positive Fall Risk Screen: Fall Risk is added to Special Handling on the patient Summary Screen. A Fall Risk Bracelet was applied to the patient. Side Rails are placed in the up position. A Call Laws is given with instruction to call for help when getting out of bed. Assistance ADL's: requires no assistance with activities of daily living. Abuse/DV Screen: The patient / caregiver reports he/she is: not in a situation that causes fear, pain or injury. Nutritional screening: No deficits noted. Advance Directives: Further advance directive information is declined. home support is inadequate. Assessment: 22:25 General: Patient reports having taken 8 800 mg Ibuprofen, 6 Klonopin 1mg, 5 Toradol 10 kmg1 mg at approx 1800. 22:49 General: Appears in no apparent distress, Behavior is crying, pt states to this writer producer af2 "I just want to , if this didn't work I was going to hang myself." pt states that she was seen yesterday for the same, but that she lied about her suicidal intent. father at bedside states that he witnessed yesterday's overdose and that today, pt was witnessed by her 13 year old daughter taking the pills. superficial lacerations noted to bilateral lower extremities in various stages of healing. states that she cuts when she becomes angry. . Neurological: Level of Consciousness is awake, alert, obeys commands, Oriented to person, place, time, Speech is normal, Facial symmetry appears normal. Cardiovascular: Heart tones S1 S2 present Rhythm is sinus tachycardia No ectopy. Respiratory: Airway is patent Respiratory effort is even, unlabored, Breath sounds are clear bilaterally. GI: Denies nausea, vomiting. Derm: Skin is pink, warm & dry. 23:19 General: this writer producer contacted poison control, their recommendations include 6 hour af2 observation for medical clearance and benzos as needed for agitation. . 23:47 General: pt up out of bed, going through clothing. escorted back to bed. security aide af2 monitoring at this time. pt father took belongings out to car.. 10/26 01:44 Reassessment: Patient appears in no apparent distress at this time. pt resting with tm5 eyes closed, resp easy, no s/s of any distress. Cardiovascular: Rhythm is sinus rhythm No ectopy. Respiratory: Airway is patent Respiratory effort is even, unlabored, Respiratory pattern is regular, symmetrical. 03:13 Reassessment: Patient appears in no apparent distress at this time. pt resting on tm5 stretcher with eyes closed, resp easy, no s/s of any distress. Cardiovascular: Rhythm is sinus rhythm No ectopy. 04:10 General: pt asking for pain medications & Magnesium run for her migraine headache, Dr khanh Boucher aware no orders received, as pt is moved to P2 she states "I hate to be a Bitch but if I don't get anything for this migraine of mine, I am going to leave & you will have to call the sludge control operator to pick me up", Dr Boucher aware of this & PSA aware as well . 05:05 Reassessment: Patient appears in no apparent distress at this time. awake resting on rw1 stretcher quietly, safety maintained will monitor.. Mental Health Eval: 04:46 Status: The patient is not a registered nurse surgical services or dependent. [facility] Behavioral Health: The patient is not an established patient of [facility] Behavioral Health. Referral Information: Evaluation referral is generated by the patient himself / herself. The patient was referred for evaluation because PT attempted suicide by OD. 05:00 Subjective: The patients chief complaint is PT states she was seen her the day before jfb yesterday for OD but she lied and said she had a bad reaction to a med and was discharged to her . PT now stating she was lying but could not explain why she made that attempt other than "I've been suicidal my whole life" PT states that she has 6 children ranging in ages from 19-13 with two sets of twins. She does not have custody of any of her children stating she has not had children in her care for 17 years. Three of her children are with her father and three of her children are with her mother. PT states she was arguing with her and went to her dad's to spend the night but decided to kill herself once there and went into the bathroom and began ingesting pills. PT states her 13 year old daughter walked in and saw what she was doing and told her father who brought her to the ED. PT states that her plan was if the OD did not kill her she had things together prepared to hang herself. PT states she has had multiple suicide attempts in her life and does not know what happiness feels like. Her has told her he is done with her and can no longer take her self harming or depression. PT states while she was here medically her mother informed her that one of her 17 year old sons attempted to hang himself and that he was also in the ED. PT gives this as a reason for her attempt as well. PT continuously states that when she is discharged she will hang herself as none of the depression treatments she has tried through the years have worked. PT feels that she is worthless and her children tell her she is "a POS mother". . Delusions are denied. Patient's mood is depressed, Hallucinations are denied. Mental Health history: ADHD, Bipolar Disorder, depression, self -mutilation, sleep disturbance, suicide attempt by several attempts by PT's report. Most recent is current presentation by OD Mental Health [place] [facility] [place], 10/2014 and 11/2014 Current Outpatient Mental Health Services: Psychiatrist / Agency: [facility]. Therapist / Agency: [facility] Nathaniel Howe. Current living environment is The patient currently lives with his / her significant other, of 5 years. Patient presents to Emergency Department with the following symptoms within the past 2 weeks: decreased appetite, depressed mood, feelings of helplessness/hopelessness, marital problem, poor concentration, poor impulse control, sleep disturbance - insomnia, suicidal ideation with attempt/gesture by pills. 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 Mental status exam: Patients appearance is appropriate, Patient's behavior is cooperative, Speech is normal. Affect is flat. Mood is depressed. Hallucinations are denied. Appetite is poor. Memory is good. Energy level is normal. Content of thought is depressive. cannot CFS and is planning to hang self upon discharge Thought process is intact. Cognitive level is oriented to person, place, time and situation Patient's insight is fair. Judgement is poor. Rapport with interviewer is good. Suicidal Ideation present with a plan to kill self by hanging. Homicidal ideation is denied. Disposition: Medically cleared for disposition by Som Boucher MD Psychiatric Consult is performed by phone with Dr Doyle Sorto MD. [facility] Admission Criteria: The patient has had a suicide attempt in the recent past. The patient requires continuous observation and/or control to protect self, others or property. The patient's care requires a multi-modal treatment plan under close supervision and coordination due to the complexity and severity of the patient's symptoms. Legal Status: Patient's legal status will be Emergency admission: 39. [place] Safe Act: [place] Safe Act is applicable to this patient. The patient poses a risk to self or other and the Nursing State'S Attorney has been notified. He/She will enter the patient's data. Insurance Pre-Certification: Not Required, Medicare and . Awaiting: transfer to [facility]. Vital Signs: 10/25 22:03 BP 151 / 78; Pulse 97; Resp 18 S; Temp 97.8(O); Pulse Ox 98% on R/A; Weight 90.72 kg gr2 (R); Height 5 ft. 2 in. (157.48 cm) (R); Pain /; 22:58 BP 124 / 79 (auto/); tm5 22:58 Pulse 79 MON; Pulse Ox 92% ; tm5 23:00 BP 118 / 79 (auto/); tm5 23:00 Pulse 75 MON; Pulse Ox 93% ; tm5 23:15 BP 124 / 85 (auto/); tm5 23:15 Pulse 70 MON; Pulse Ox 89% ; tm5 23:30 BP 124 / 82 (auto/); tm5 23:30 Pulse 79 MON; Pulse Ox 90% ; tm5 23:45 BP 129 / 86 (auto/); tm5 23:45 Pulse 72 MON; tm5 10/26 00:00 BP 133 / 91 (auto/); tm5 00:00 Pulse 65 MON; Pulse Ox 90% on R/A; tm5 00:15 BP 137 / 92 (auto/); tm5 00:15 Pulse 64 MON; Resp 18; Pulse Ox 94% on R/A; tm5 01:45 BP 128 / 69; Pulse 89; Resp 18; Pulse Ox 93% on R/A; Pain 0/10; tm5 03:13 BP 133 / 88; Pulse 74; Resp 20; Pulse Ox 94% on R/A; Pain 0/10; tm5 05:24 BP 122 / 77; Pulse 70; Resp 16; Temp 97.1(TE); Pulse Ox 95% on R/A; rw1 10/25 22:03 Body Mass Index 36.58 (90.72 kg, 157.48 cm) gr2 Vitals: 10/25 22:03 Log In Time: October 25, 2016 at 22:03. RN notified that patient meets Red Flag gr2 criteria. ED Course: 22:02 Patient visited by Amna Davis. gr2 22:02 Patient moved to Waiting gr2 22:03 Dong [facility] is Private Physician. gr2 22:04 Patient visited by Amna Davis. gr2 22:04 Patient moved to Pre RCE gr2 22:12 Triage Initiated rs3 22:16 Nallely Agosto,RN is Primary Nurse. cz 22:16 Patient moved to 2 cz 22:17 Som Boucher MD is Attending Physician. pc 22:21 Patient visited by Som Boucher MD. pc 22:35 EKG done. (by ED staff). Reviewed by Som Boucher MD. kb5 22:36 Patient visited by Lanre Bull PCA. kb5 22:48 Complete Blood Count Sent. af2 22:48 Basic Metabolic Profile Sent. af2 22:48 Acetaminophen Level Sent. af2 22:48 Keys Level Sent. af2 22:48 Ethyl Alcohol (ethanol) Sent. af2 22:48 Liver Profile Sent. af2 22:48 Salicylate Level Sent. af2 22:48 Thyroid Stimulating Hormone Sent. af2 22:53 The patient / caregiver is instructed regarding the plan of care and ED course. Patient af2 has correct armband on for positive identification. Placed in psych safe attire. medication manager on. Pulse ox on. NIBP on. 22:53 Missed attempts: 20 gauge X 1 in right antecubital area. af2 22:54 Inserted saline lock: 20 gauge in left antecubital area and blood collected. The af2 patient tolerated the procedure well. No procedures done that require assistance. 22:56 Patient visited by Nallely Agosto RN. af2 23:05 Patient visited by Lanre Bull PCA. kb5 23:07 -Arterial Blood Gas Sent. jh6 23:20 Patient visited by Nallely Agosto RN. af2 23:59 Patient visited by Nallely Agosto RN. af2 23:59 Patient visited by Nallely Agosto RN. af2 10/26 00:55 Patient visited by Lanre Bull PCA. kb5 00:57 Patient visited by Yary Malone RN. tm5 00:57 Report received from Nallely Rizo RN, assumed care of pt at this time. tm5 01:36 Patient visited by Lanre Bull PCA. kb5 01:36 Psych Safety Check: Location: Medical Room. Visual Assessment: Cooperative. kb5 01:44 Patient visited by Yary Malone RN. tm5 03:13 Patient visited by Yary Malone RN. tm5 03:13 [facility] Payment Agreement was scanned into My e[employer] and attached to record. hs2 04:14 Patient moved to [facility] cz 04:19 Patient visited by Yary Malone RN. tm5 04:19 Discontinued lock intact, bleeding controlled, pressure dressing applied, No tm5 redness/swelling at site. 04:39 Patient visited by Bulmaro Corrigan LPN. rw1 04:44 Patient visited by Tim. Colby tr 04:50 Doyle Sorto MD is Hospitalizing Provider. pc 04:59 Patient visited by Lewis Bowman. tr 05:14 Patient visited by Lewis Bowman. tr 05:18 [facility] Legal paperwork was scanned into My [employer] and attached to record. rw1 09:45 ECG/EKG was scanned into My [employer] and attached to record. gb Attachments: 05:18 [facility] Legal paperwork rw1 RT: 10/25 23:08 ABG's drawn from left radial artery pressure held for 5 minutes no bleeding noted jh6 pressure bandage applied specimen sent pt. tolerated well. Order Results: Lab Order: Acetaminophen Level; SPEC'M 10/25/16 22:44 Test: ACETAMINOPHEN LEVEL; Value: < 2.0; Range: 10.0-30.0; Abnormal: Below low normal; Units: UG/ML; Status: F Lab Order: Basic Metabolic Profile; SPEC'M 10/25/16 22:44 Test: GLUCOSE, FASTING; Value: 84; Range: 70-105; Units: MG/DL; Status: F Test: BLOOD UREA NITROGEN; Value: 10; Range: 7-18; Units: MG/DL; Status: F Test: CREATININE FOR GFR; Value: 0.93; Range: 0.55-1.02; Units: MG/DL; Status: F Test: GLOMERULAR FILTRATION RATE; Value: > 60.0; Range: >60; Status: F Test: SODIUM LEVEL; Value: 146; Range: 136-145; Abnormal: Above high normal; Units: MEQ/L; Status: F Test: POTASSIUM SERUM; Value: 4.1; Range: 3.5-5.1; Units: MEQ/L; Status: F Test: CHLORIDE LEVEL; Value: 111; Range: 98-107; Abnormal: Above high normal; Units: MEQ/L; Status: F Test: CARBON DIOXIDE LEVEL; Value: 27; Range: 21-32; Units: MEQ/L; Status: F Test: ANION GAP; Value: 8; Range: 8-16; Units: MEQ/L; Status: F Test: CALCIUM LEVEL; Value: 8.1; Range: 8.5-10.1; Abnormal: Below low normal; Units: MG/DL; Status: F Test Note: ; Units are mL/min/1.73 m2 Chronic Kidney Disease Staging per NKF: Stage I & II GFR >=60 Normal to Mildly Decreased Stage III GFR 30-59 Moderately Decreased Stage IV GFR 15-29 Severely Decreased Stage V GFR <15 Very Little GFR Left ESRD GFR <15 on STEAM AND GAS TURBINE ASSEMBLER Lab Order: Complete Blood Count; SPEC'M 10/25/16 22:44 Test: WHITE BLOOD COUNT; Value: 13.0; Range: 4.0-10.0; Abnormal: Above high normal; Units: K/mm3; Status: F Test: RED BLOOD COUNT; Value: 3.94; Range: 4.00-5.40; Abnormal: Below low normal; Units: M/mm3; Status: F Test: HEMOGLOBIN; Value: 10.0; Range: 12.0-16.0; Abnormal: Below low normal; Units: g/dl; Status: F Test: HEMATOCRIT; Value: 30.6; Range: 36.0-47.0; Abnormal: Below low normal; Units: %; Status: F Test: MEAN CORPUSCULAR VOLUME; Value: 77.7; Range: 80.0-96.0; Abnormal: Below low normal; Units: fl; Status: F Test: MEAN CORPUSCULAR HEMOGLOBIN; Value: 25.4; Range: 27.0-33.0; Abnormal: Below low normal; Units: pg; Status: F Test: MEAN CORPUSCULAR HGB CONC; Value: 32.6; Range: 32.0-36.5; Units: g/dl; Status: F Test: RED CELL DISTRIBUTION WIDTH; Value: 14.0; Range: 11.5-14.5; Units: %; Status: F Test: PLATELET COUNT, AUTOMATED; Value: 298; Range: 150-450; Units: k/mm3; Status: F Lab Order: Drug Eval Toxicology ED Only; SPEC'M 10/25/16 22:53 Test: AMPHETAMINES LEVEL URINE; Value: NEGATIVE; Range: NEGATIVE; Status: F Test: BARBITURATES URINE; Value: NEGATIVE; Range: NEGATIVE; Status: F Test: BENZODIAZEPINES URINE; Value: NEGATIVE; Range: NEGATIVE; Status: F Test: CANNABINOIDS URINE; Value: NEGATIVE; Range: NEGATIVE; Status: F Test: COCAINE METABOLITE URINE; Value: NEGATIVE; Range: NEGATIVE; Status: F Test: METHADONE URINE; Value: NEGATIVE; Range: NEGATIVE; Status: F Test: OPIATES URINE; Value: NEGATIVE; Range: NEGATIVE; Status: F Test: TRICYCLIC ANTIDEPRESS URINE; Value: NEGATIVE; Range: NEGATIVE; Status: F Test Note: ; ALL PRESUMPTIVE POSITIVE FINDINGS ARE UNCONFIRMED NORMAL VALUES THRESHOLD IN NG/ML AMPHETAMINES 1000 METHAMPHETAMINES 1000 BARBITURATES 300 BENZODIAZEPINES 300 CANNABINOIDS (THC) 50 COCAINE METABOLITE 300 METHADONE 300 OPIATES 300 PHENCYCLIDINE 25 TRICYCLIC ANTIDEPRESSANTS 1000 RESULTS ARE FOR MEDICAL PURPOSES ONLY. ALL URINE SPECIMENS WILL BE SAVED FOR 3 DAYS. IF CONFIRMATION OF A PRESUMPTIVE POSTIVE SCREEN RESULT IS DESIRED, CALL CHEMISTRY ([phone]) AND REQUEST URINE TO BE SENT TO REFERENCE LAB. FOR A LIST OF CLOSELY RELATED COMPOUNDS PLEASE CALL THE LAB. Lab Order: Ethyl Alcohol (ethanol); SPEC'M 10/25/16 22:44 Test: ETHYL ALCOHOL (ETHANOL); Value: < 0.003; Range: 0.000-0.010; Units: %; Status: F Lab Order: Liver Profile; SPEC'M 10/25/16 22:44 Test: AST/SGOT; Value: 14; Range: 15-37; Abnormal: Below low normal; Units: U/L; Status: F Test: ALT/SGPT; Value: 72; Range: 12-78; Units: U/L; Status: F Test: ALKALINE PHOSPHATASE; Value: 97; Range: 45-117; Units: U/L; Status: F Test: BILIRUBIN,TOTAL; Value: 0.3; Range: 0.2-1.0; Units: MG/DL; Status: F Test: BILIRUBIN,DIRECT; Value: < 0.1; Range: 0.0-0.2; Units: MG/DL; Status: F Test: TOTAL PROTEIN; Value: 6.8; Range: 6.4-8.2; Units: GM/DL; Status: F Test: ALBUMIN; Value: 3.6; Range: 3.2-5.2; Abnormal: Delta; Units: GM/DL; Status: F Test: ALBUMIN/GLOBULIN RATIO; Value: 1.13; Range: 1.00-1.93; Status: F Lab Order: Salicylate Level; SPEC'M 10/25/16 22:44 Test: SALICYLATE LEVEL; Value: < 1.7; Range: 5.0-30.0; Abnormal: Below low normal; Units: MG/DL; Status: F Lab Order: Thyroid Stimulating Hormone; SPEC'M 10/25/16 22:44 Test: THYROID STIMULATING HORMONE; Value: 2.070; Range: 0.358-3.740; Units: uIU/ML; Status: F Lab Order: Keys Level; SPEC'M 10/25/16 22:44 Test: LITHIUM LEVEL; Value: < 0.20; Range: 0.60-1.20; Abnormal: Below low normal; Units: MEQ/L; Status: F Lab Order: -Arterial Blood Gas; SPEC'M 10/25/16 23:02 Test: ABG pH (ARTERIAL); Value: 7.444; Range: 7.350-7.450; Units: UNITS; Status: F Test: ABG PARTIAL PRESSURE CO2; Value: 35.6; Range: 35.0-45.0; Units: mmHg; Status: F Test: ABG PARTIAL PRESSURE O2; Value: 62.9; Range: 75.0-100.0; Abnormal: Below low normal; Units: mmHg; Status: F Test: ABG TOTAL CO2; Value: 24.9; Range: 22.0-29.0; Units: MEQ/L; Status: F Test: ABG HCO3; Value: 23.9; Range: 22.0-26.0; Units: MEQ/L; Status: F Test: ABG BASE EXCESS; Value: 0.0; Range: -2.0-2.0; Status: F Test: ABG STANDARD HCO3; Value: 24.4; Range: 22.0-26.0; Units: MEQ/L; Status: F Test: ABG O2 SATURATION; Value: 92.0; Range: 95.0-99.0; Abnormal: Below low normal; Units: %; Status: F Test: ABG DEVICE; Value: NASAL NORMA; Status: F Outcome: 10/26 04:50 Decision to Hospitalize by Provider. 05:24 Discharge Assessment: Patient awake, alert and oriented x 3. No cognitive and/or rw1 functional deficits noted. Patient verbalized understanding of disposition instructions. patient administered narcotics - no. The following High Risk Discharge criteria are identified: Admitted to [facility] accompanied by tech, via wheelchair, with chart. Condition: stable. No special radiology studies were completed. Property removed, inventory done, secured in belongings bag- given to [facility] staff. 05:27 Patient left the ED. rw1 Signatures: Som Boucher MD MD pc Garrison, Kelly, RN RN kmg1 Tristen Torres, RN RN cz Jordyn Reyes, Reg Reg gb Bowman, Lewis tr Bulmaro Corrigan,GOVERNOR ASSEMBLER GOVERNOR ASSEMBLER rw1 Lanre Bull, MUD CLEANER OPERATOR MUD CLEANER OPERATOR kb5 Sabrina BlackRN RN rs3 Cherry Enciso, PSA PSA jfb Devonte Salguero jh6 Amna Davis gr2 Nallely Agosto RN RN af2 Yadira Macias, Reg Reg hs2 Yary MaloneRN RN tm5 Corrections: (The following items were deleted from the chart) 10/25 22:18 22:07 Acuity: ERIN Level 3 rs3 rs3 Chart Complete MTDD
[2016-10-28 06:32] VITALS: BP 112/58
[2016-10-28] MEDS: NICOTINE 21MG/24HR 1 EA TRANSDERMAL TD SCH (08:09)
[2016-10-28] MEDS: ASPIRIN 325 MG TAB PO SCH (08:09)
[2016-10-28] MEDS: DULoxetine 30 MG CAP (CYMBALTA) PO SCH (08:09)
[2016-10-28] MEDS: MULTIVITAMINS/MINERALS THERAP 1 TAB PO SCH (08:09)
[2016-10-28] MEDS: LITHIUM CARBONATE 300 MG CAP PO SCH ×2 (08:09→20:11)
[2016-10-28] MEDS: METOCLOPRAMIDE 10 MG TAB PO PRN (13:31)
[2016-10-28] MEDS ORDERED: KETOROLAC TROMETHAMINE 10 MG TAB PO ONE (14:00)
[2016-10-28 18:13] VITALS: BP 120/60
[2016-10-28] MEDS: AMITRIPTYLINE 50 MG TAB PO SCH (20:11)
[2016-10-28] MEDS: QUEtiapine FUMARATE 200 MG TAB PO SCH (20:11)
[2016-10-28] MEDS: clonazePAM 1 MG TAB PO PRN (21:11)
[2016-10-29] MEDS ORDERED: diphenhydrAMINE 50 MG CAP PO ONE ×2 (00:45→23:15)
--- NOTE | 2016-10-29 01:04 | ECGEPIP ---
Stationary ECG Study [facility] Test Date: 2016-10-28 Pat Name: ADRI KESSLER Department: Room: [place] [address] Gender: F Employment Program Representative: STEPHANIE : 1980 Requested By: SALOMON Rasmussen Order Number: [id number] Reading MD: Matty Newman Measurements Intervals [place] Rate: 89 P: 25 OR: 136 QRS: -16 QRSD: 86 T: 33 QT: 367 QTc: 447 Interpretive Statements SINUS RHYTHM Compared to the last 3 tracings in the system. Prior atrial paced rhythm was noted Electronically Signed On 10-29-2016 1:04:07 EST by Matty Newman
[2016-10-29 06:11] VITALS: BP 132/72
[2016-10-29] MEDS: NICOTINE 21MG/24HR 1 EA TRANSDERMAL TD SCH (10:01)
[2016-10-29] MEDS: MULTIVITAMINS/MINERALS THERAP 1 TAB PO SCH (10:02)
[2016-10-29] MEDS: DULoxetine 30 MG CAP (CYMBALTA) PO SCH (10:02)
[2016-10-29] MEDS: LITHIUM CARBONATE 300 MG CAP PO SCH ×2 (10:02→21:39)
[2016-10-29] MEDS: ASPIRIN 325 MG TAB PO SCH (10:02)
[2016-10-29] MEDS: clonazePAM 1 MG TAB PO PRN ×2 (12:14→22:56)
[2016-10-29] MEDS ORDERED: QUEtiapine FUMARATE 50 MG TAB PO ONE (13:45)
[2016-10-29 18:00] VITALS: BP 119/67
[2016-10-29] MEDS: METOCLOPRAMIDE 10 MG TAB PO PRN (18:28)
[2016-10-29] MEDS: QUEtiapine FUMARATE 200 MG TAB PO SCH (21:40)
[2016-10-29] MEDS: AMITRIPTYLINE 50 MG TAB PO SCH (21:40)
--- NOTE | 2016-10-29 23:31 | HPEPDOC ---
[facility] History & Physical History and Physical DATE OF ADMISSION: Oct 26, 2016 at 05:32 Date of this interview: 10/26/2016 CHIEF COMPLAINT: . HISTORY OF THE PRESENT ILLNESS: Patient is a [AGE]-year-old [RACE/GENDER], who PAST PSYCHIATRIC HISTORY: Prior Psychiatric Disorder: . Out Patient Treatment: . Suicidal/Self injurious: . Psychotropic Medication History: . PAST MEDICAL HISTORY: History of head injury: . Loss of consciousness or seizures: . Illnesses: . Operations: . Injuries: . Treatments: . HOME MEDICATIONS: Please see below. ALLERGIES: Please see below. FAMILY PSYCHIATRIC HISTORY: . SOCIAL HISTORY: . SUBSTANCE ABUSE HISTORY: . LEGAL HISTORY: . VITAL SIGNS: Temperature , pulse , respiratory rate , blood pressure , pulse oximetry % on room air. LABORATORY DATA: Please see below. REVIEW OF SYSTEMS: . MENTAL STATUS EXAMINATION: Patient is a -year-old who appears stated age. Speech: Is [pressured/ tangential/circumstantial/flight of ideas], [normal] in rate, volume, and articulation, and is [coherent] and [spontaneous]. Language skills are [intact]. Thought processes: [Clear/Not goal-directed/Goal directed]. Thought content: [irrational/logical/illogical/tangential/paranoid]. Abstract reasoning, and computation: . Description of associations: [loose/tangential/circumstantial/intact]. Description of abnormal or psychotic thoughts: [hallucinations, delusions, preoccupation with violence, homicidal or suicidal ideation, and obsessions]. Judgment: [fair/good/very limited/poor,]. Insight: [very limited/good/fair/poor]. Orientation to [time, place and person]. Recent and remote memory: . Immediate short-term and long-term memory is: [intact]. Attention span and concentration: [Poor/good/fair]. Language: [Normal]. Fund of knowledge: [adequate/intact/poor/fair/good]. Mood: [irrational/elated/irritable/distracted/depressed/anxious/restricted/ neutral/fully communicative]. Affect: [appropriate/reactive/flat/constricted/ animated/irrational/expansive/restricted/depressed/anxious/agitated/hypomania/ lability]. DIAGNOSES: 1. . 2. . 3. . ASSESSMENT: PROBLEM LIST: 1. . 2. . 3. . INITIAL TREATMENT PLAN: ESTIMATED LENGTH OF STAY: - days. TIME SPENT COUNSELING AND COORDINATING INITIAL CARE: minutes. Medications Scheduled Amitriptyline HCl (Amitriptyline HCl) 25 Mg Tab 25 MG PO QHS (Reported) Aspirin (Aspirin) 325 Mg Tab 325 MG PO DAILY (Reported) Duloxetine Hcl (Cymbalta) 60 Mg Cap 60 MG PO BID (Reported) Multivitamins *[facility] STOCKED* (Thera M Plus *[facility] STOCKED*) 1 Tab Tab 1 TAB PO DAILY (Reported) Prazosin Hcl (Prazosin HCl) 2 Mg Cap 8 MG PO QHS (Reported) Scheduled PRN (Epipen 2-Arsenio) 0.3 Mg/0.3 Ml Inj 0.3 MG INJ ASDIRECTED PRN PRN ANAPHYLAXIS ( Reported) Clonazepam (Clonazepam) 1 Mg Tab 1 MG PO BID PRN PRN ANXIETY (Reported) Ketorolac Tromethamine (Ketorolac Tromethamine) 10 Mg Tab 10 MG PO Q6H PRN PRN HEADACHE (Reported) FILLED 10/20/16 Metoclopramide HCl (Metoclopramide HCl) 10 Mg Tab 10 MG PO TID PRN PRN NAUSEA ( Reported) Tramadol HCl (Tramadol HCl) 50 Mg Tab 50 MG PO QID PRN PRN PAIN (Reported) Zolmitriptan (Zomig Zmt) 2.5 Mg Tab 2.5 MG PO ASDIRECTED PRN PRN MIGRAINE ( Reported) Allergies Coded Allergies: Bee Venom (Verified Allergy, Severe, Anaphylaxis , 10/06/14) SEAFOOD (Verified Allergy, Severe, Anaphylaxis , 10/06/14) Shellfish Allergy (Verified Allergy, Severe, Anaphylaxis , 10/06/14) Sertraline (Unverified Allergy, Intermediate, RASH, 10/26/16) TAPE (Verified Adverse Reaction, Mild, Burning/Itching of the skin. , ) SALOMON BERMUDEZ MD Oct 29, 2016 23:31
--- NOTE | 2016-10-29 23:31 | IPNPDOC ---
[facility] Progress Note Progress Note DATE OF SERVICE: 10/29/16 Date of this interview: 10/27/2016 HISTORY: . VITAL SIGNS: See below. NEW TEST RESULTS: . CURRENT MEDICATIONS: See below. MENTAL STATUS EXAMINATION: Patient is a -year-old who appears than the stated age. Speech: Is [pressured, tangential, circumstantial, flight of ideas, [ normal in rate, volume, and articulation, and is coherent and spontaneous]. Language skills are intact. Thought processes including: [clear, Not goal- directed or Goal directed]. Thought content: [irrational, logical, illogical, tangential, paranoid]. Abstract reasoning, and computation: . Description of associations: [loose, tangential, circumstantial, intact]. Description of abnormal or psychotic thoughts: [hallucinations, delusions, preoccupation with violence, homicidal or suicidal ideation, and obsessions]. Judgment: [fair, good , very limited, poor,]. Insight: [very limited, good, fair. poor]. Orientation to [time, place and person]. Recent and remote memory: [Immediate, short-term and long-term memory is intact]. Attention span and concentration: [Poor, good, fair]. Language: [Normal]. Fund of knowledge: [adequate, intact, poor, fair, good]. Mood: [irrational, elated, irritable, distracted, depressed, anxious, restricted, neutral, fully communicative]. Affect: [appropriate, reactive, flat , constricted, animated, irrational, expansive, restricted, depressed, anxious, agitated, hypomania, lability]. DIAGNOSES: 1. . 2. . 3. . ASSESSMENT: MANAGEMENT PLAN: . TIME SPENT: minutes. Vital Signs Vital Signs Date Time Temp Pulse Resp B/P Pulse Ox O2 Delivery O2 Flow Rate FiO2 10/29/16 18:00 97.7 99 16 119/67 10/26/16 11:20 Room Air 10/26/16 11:00 96 Current Medications Current Medications Medications (Trade) Dose Ordered Sig/Rhiannon Route PRN Reason Start Time Stop Time Status Last Admin Dose Admin Acetaminophen (Tylenol) 650 mg Q6HP PRN PO HEADACHE or DISCOMFORT 10/26/16 05:15 11/25/16 05:14 10/26/16 16:46 Al Hydrox/Mg Hydrox/Simethicone (Mylanta) 30 ml Q4HP PRN PO HEARTBURN/INDIGESTION 10/26/16 05:15 11/25/16 05:14 Amitriptyline HCl (Elavil) 50 mg QHS PO 10/27/16 21:00 11/26/16 20:59 10/29/16 21:40 Aspirin (Aspirin) 325 mg DAILY PO 10/26/16 09:00 11/25/16 08:59 10/29/16 10:02 Clonazepam (KlonoPIN) 1 mg Q8HP PRN PO ANXIETY 10/26/16 21:45 11/02/16 21:44 10/29/16 22:56 Duloxetine HCl (Cymbalta) 60 mg QAM PO 10/27/16 09:00 11/26/16 08:59 10/29/16 10:02 Home Med (Med Rec Complete!) ASDIRECTED XX 10/26/16 05:30 10/26/16 05:30 DC Ketorolac Tromethamine (ToRADol) 10 mg Q6HP PRN PO HEADACHE 10/26/16 11:30 10/28/16 11:29 DC 10/27/16 20:16 [place] Carbonate (Kim Carbonate) 300 mg BID PO 10/27/16 09:00 11/26/16 08:59 10/29/16 21:39 Magnesium Hydroxide (Milk Of Magnesia) 30 ml DAILYPRN PRN PO CONSTIPATION 10/26/16 05:15 11/25/16 05:14 10/27/16 17:41 Metoclopramide HCl (Reglan) 10 mg TIDP PRN PO NAUSEA 10/26/16 11:30 11/25/16 11:29 10/29/16 18:28 Multivitamins (Theragram-M) 1 tab DAILY PO 10/26/16 09:00 11/25/16 08:59 10/29/16 10:02 Nicotine (Nicoderm Cq 21mg) 1 patch DAILY TD 10/26/16 09:00 11/25/16 08:59 10/29/16 10:01 Quetiapine Fumarate (SEROquel) 50 mg DAILY@12 PO 10/30/16 12:00 11/29/16 11:59 Quetiapine Fumarate (SEROquel) 200 mg QHS PO 10/27/16 21:00 11/26/16 20:59 10/29/16 21:40 Tramadol HCl (Ultram) 50 mg BIDP PRN PO MIGRAINE 10/28/16 13:30 11/04/16 13:29 Tramadol HCl (Ultram) 50 mg QIDP PRN PO PAIN 10/26/16 11:30 10/27/16 12:33 DC 10/27/16 12:23 Trazodone HCl (Desyrel) 50 mg QHSP PRN PO INSOMNIA 10/26/16 05:15 10/27/16 12:48 DC 10/26/16 21:33 Zolmitriptan (Zomig) 2.5 mg ASDIRECTED PRN PO MIGRAINE 10/26/16 11:30 11/25/16 11:29 10/27/16 10:54 Allergies Coded Allergies: Bee Venom (Verified Allergy, Severe, Anaphylaxis , 10/06/14) SEAFOOD (Verified Allergy, Severe, Anaphylaxis , 10/06/14) Shellfish Allergy (Verified Allergy, Severe, Anaphylaxis , 10/06/14) Sertraline (Unverified Allergy, Intermediate, RASH, 10/26/16) TAPE (Verified Adverse Reaction, Mild, Burning/Itching of the skin. , ) SALOMON BERMUDEZ MD Oct 29, 2016 23:31
--- NOTE | 2016-10-29 23:35 | IPNPDOC ---
[facility] Progress Note Progress Note DATE OF SERVICE: 10/29/16 HISTORY: . VITAL SIGNS: See below. NEW TEST RESULTS: . CURRENT MEDICATIONS: See below. MENTAL STATUS EXAMINATION: Patient is a -year-old who appears than the stated age. Speech: Is [pressured, tangential, circumstantial, flight of ideas, [ normal in rate, volume, and articulation, and is coherent and spontaneous]. Language skills are intact. Thought processes including: [clear, Not goal- directed or Goal directed]. Thought content: [irrational, logical, illogical, tangential, paranoid]. Abstract reasoning, and computation: . Description of associations: [loose, tangential, circumstantial, intact]. Description of abnormal or psychotic thoughts: [hallucinations, delusions, preoccupation with violence, homicidal or suicidal ideation, and obsessions]. Judgment: [fair, good , very limited, poor,]. Insight: [very limited, good, fair. poor]. Orientation to [time, place and person]. Recent and remote memory: [Immediate, short-term and long-term memory is intact]. Attention span and concentration: [Poor, good, fair]. Language: [Normal]. Fund of knowledge: [adequate, intact, poor, fair, good]. Mood: [irrational, elated, irritable, distracted, depressed, anxious, restricted, neutral, fully communicative]. Affect: [appropriate, reactive, flat , constricted, animated, irrational, expansive, restricted, depressed, anxious, agitated, hypomania, lability]. DIAGNOSES: 1. . 2. . 3. . ASSESSMENT: MANAGEMENT PLAN: . TIME SPENT: minutes. Vital Signs Vital Signs Date Time Temp Pulse Resp B/P Pulse Ox O2 Delivery O2 Flow Rate FiO2 10/29/16 18:00 97.7 99 16 119/67 10/26/16 11:20 Room Air 10/26/16 11:00 96 Current Medications Current Medications Medications (Trade) Dose Ordered Sig/Rhiannon Route PRN Reason Start Time Stop Time Status Last Admin Dose Admin Acetaminophen (Tylenol) 650 mg Q6HP PRN PO HEADACHE or DISCOMFORT 10/26/16 05:15 11/25/16 05:14 10/26/16 16:46 Al Hydrox/Mg Hydrox/Simethicone (Mylanta) 30 ml Q4HP PRN PO HEARTBURN/INDIGESTION 10/26/16 05:15 11/25/16 05:14 Amitriptyline HCl (Elavil) 50 mg QHS PO 10/27/16 21:00 11/26/16 20:59 10/29/16 21:40 Aspirin (Aspirin) 325 mg DAILY PO 10/26/16 09:00 11/25/16 08:59 10/29/16 10:02 Clonazepam (KlonoPIN) 1 mg Q8HP PRN PO ANXIETY 10/26/16 21:45 11/02/16 21:44 10/29/16 22:56 Duloxetine HCl (Cymbalta) 60 mg QAM PO 10/27/16 09:00 11/26/16 08:59 10/29/16 10:02 Home Med (Med Rec Complete!) ASDIRECTED XX 10/26/16 05:30 10/26/16 05:30 DC Ketorolac Tromethamine (ToRADol) 10 mg Q6HP PRN PO HEADACHE 10/26/16 11:30 10/28/16 11:29 DC 10/27/16 20:16 [place] Carbonate ([place] Carbonate) 300 mg BID PO 10/27/16 09:00 11/26/16 08:59 10/29/16 21:39 Magnesium Hydroxide (Milk Of Magnesia) 30 ml DAILYPRN PRN PO CONSTIPATION 10/26/16 05:15 11/25/16 05:14 10/27/16 17:41 Metoclopramide HCl (Reglan) 10 mg TIDP PRN PO NAUSEA 10/26/16 11:30 11/25/16 11:29 10/29/16 18:28 Multivitamins (Theragram-M) 1 tab DAILY PO 10/26/16 09:00 11/25/16 08:59 10/29/16 10:02 Nicotine (Nicoderm Cq 21mg) 1 patch DAILY TD 10/26/16 09:00 11/25/16 08:59 10/29/16 10:01 Quetiapine Fumarate (SEROquel) 50 mg DAILY@12 PO 10/30/16 12:00 11/29/16 11:59 Quetiapine Fumarate (SEROquel) 200 mg QHS PO 10/27/16 21:00 11/26/16 20:59 10/29/16 21:40 Tramadol HCl (Ultram) 50 mg BIDP PRN PO MIGRAINE 10/28/16 13:30 11/04/16 13:29 Tramadol HCl (Ultram) 50 mg QIDP PRN PO PAIN 10/26/16 11:30 10/27/16 12:33 DC 10/27/16 12:23 Trazodone HCl (Desyrel) 50 mg QHSP PRN PO INSOMNIA 10/26/16 05:15 10/27/16 12:48 DC 10/26/16 21:33 Zolmitriptan (Zomig) 2.5 mg ASDIRECTED PRN PO MIGRAINE 10/26/16 11:30 11/25/16 11:29 10/27/16 10:54 Allergies Coded Allergies: Bee Venom (Verified Allergy, Severe, Anaphylaxis , 10/06/14) SEAFOOD (Verified Allergy, Severe, Anaphylaxis , 10/06/14) Shellfish Allergy (Verified Allergy, Severe, Anaphylaxis , 10/06/14) Sertraline (Unverified Allergy, Intermediate, RASH, 10/26/16) TAPE (Verified Adverse Reaction, Mild, Burning/Itching of the skin. , ) SALOMON BERMUDEZ MD Oct 29, 2016 23:35
[2016-10-30 06:44] VITALS: BP 109/57
[2016-10-30] MEDS: MULTIVITAMINS/MINERALS THERAP 1 TAB PO SCH (08:21)
[2016-10-30] MEDS: DULoxetine 30 MG CAP (CYMBALTA) PO SCH (08:22)
[2016-10-30] MEDS: LITHIUM CARBONATE 300 MG CAP PO SCH ×2 (08:22→20:07)
[2016-10-30] MEDS: ASPIRIN 325 MG TAB PO SCH (08:22)
[2016-10-30] MEDS: NICOTINE 21MG/24HR 1 EA TRANSDERMAL TD SCH (08:23)
[2016-10-30] MEDS: clonazePAM 1 MG TAB PO PRN ×2 (10:05→18:10)
[2016-10-30] MEDS: traMADol 50 MG TAB PO PRN (11:25)
[2016-10-30] MEDS ORDERED: QUEtiapine FUMARATE 50 MG TAB PO SCH (12:00)
[2016-10-30] MEDS ORDERED: QUEtiapine FUMARATE 100 MG TAB PO ONE (13:00)
[2016-10-30 18:00] VITALS: BP 126/63
[2016-10-30] MEDS: ACETAMINOPHEN TAB 650MG DOSE (2X325MG) PO PRN (18:10)
[2016-10-30] MEDS: QUEtiapine FUMARATE 100 MG TAB PO SCH (20:07)
[2016-10-30] MEDS: AMITRIPTYLINE 25 MG TAB PO SCH (20:07)
[2016-10-31 06:33] VITALS: BP 144/69
[2016-10-31 06:35] VITALS: BP 115/82
[2016-10-31] MEDS: DULoxetine 30 MG CAP (CYMBALTA) PO SCH (08:08)
[2016-10-31] MEDS: NICOTINE 21MG/24HR 1 EA TRANSDERMAL TD SCH (08:08)
[2016-10-31] MEDS: ASPIRIN 325 MG TAB PO SCH (08:08)
[2016-10-31] MEDS: LITHIUM CARBONATE 300 MG CAP PO SCH ×2 (08:08→20:14)
[2016-10-31] MEDS: MULTIVITAMINS/MINERALS THERAP 1 TAB PO SCH (08:08)
[2016-10-31] MEDS: QUEtiapine FUMARATE 100 MG TAB PO SCH ×2 (11:49→20:14)
[2016-10-31] MEDS: clonazePAM 1 MG TAB PO PRN (14:49)
[2016-10-31 18:00] VITALS: BP 112/62
[2016-10-31] MEDS: ZOLMitriptan TABLET 2.5MG PO PRN (18:58)
[2016-10-31] MEDS ORDERED: SODIUM CHLORIDE NASAL 0.65% SPRAY BTL (OCEAN) PRN (19:15)
[2016-10-31] MEDS: AMITRIPTYLINE 25 MG TAB PO SCH (20:13)
[2016-11-01] MEDS: traMADol 50 MG TAB PO PRN ×2 (04:00→13:39)
[2016-11-01 06:29] VITALS: BP 136/74
[2016-11-01] MEDS: ASPIRIN 325 MG TAB PO SCH (08:05)
[2016-11-01] MEDS: DULoxetine 30 MG CAP (CYMBALTA) PO SCH (08:06)
[2016-11-01] MEDS: LITHIUM CARBONATE 300 MG CAP PO SCH ×2 (08:06→20:09)
[2016-11-01] MEDS: NICOTINE 21MG/24HR 1 EA TRANSDERMAL TD SCH (08:06)
[2016-11-01] MEDS: MULTIVITAMINS/MINERALS THERAP 1 TAB PO SCH (08:06)
[2016-11-01] MEDS: QUEtiapine FUMARATE 100 MG TAB PO SCH ×2 (11:22→20:08)
[2016-11-01] MEDS: METOCLOPRAMIDE 10 MG TAB PO PRN (13:40)
[2016-11-01] MEDS: ZOLMitriptan TABLET 2.5MG PO PRN (15:34)
[2016-11-01 18:00] VITALS: BP 131/86
[2016-11-01] MEDS: AMITRIPTYLINE 25 MG TAB PO SCH (20:08)
[2016-11-02] MEDS: traMADol 50 MG TAB PO PRN (03:37)
[2016-11-02 06:43] VITALS: BP 132/77
[2016-11-02] MEDS: NICOTINE 21MG/24HR 1 EA TRANSDERMAL TD SCH (08:13)
[2016-11-02] MEDS: DULoxetine 30 MG CAP (CYMBALTA) PO SCH (08:13)
[2016-11-02] MEDS: LITHIUM CARBONATE 300 MG CAP PO SCH (08:13)
[2016-11-02] MEDS: MULTIVITAMINS/MINERALS THERAP 1 TAB PO SCH (08:13)
[2016-11-02] MEDS: ASPIRIN 325 MG TAB PO SCH (08:13)
[2016-11-02] MEDS ORDERED: NICO21PAT TD (08:45)
[2016-11-02] MEDS ORDERED: DULO30CA PO (09:32)
[2016-11-02] MEDS ORDERED: LITH300C PO (09:32)
[2016-11-02] MEDS ORDERED: METO10TA2 PO (09:32)
[2016-11-02] MEDS ORDERED: CLON1TAB PO (09:32)
[2016-11-02] MEDS ORDERED: QUET1TAB8 PO ×2 (09:32)
[2016-11-02] MEDS ORDERED: AMIT25TA PO (09:32)
--- NOTE | 2016-11-02 11:40 | IPNPDOC ---
[facility] Progress Note Progress Note DATE OF SERVICE: 10/30/16 HISTORY: . VITAL SIGNS: See below. NEW TEST RESULTS: . CURRENT MEDICATIONS: See below. MENTAL STATUS EXAMINATION: Patient is a -year-old who appears than the stated age. Speech: Is [pressured, tangential, circumstantial, flight of ideas, [ normal in rate, volume, and articulation, and is coherent and spontaneous]. Language skills are intact. Thought processes including: [clear, Not goal- directed or Goal directed]. Thought content: [irrational, logical, illogical, tangential, paranoid]. Abstract reasoning, and computation: . Description of associations: [loose, tangential, circumstantial, intact]. Description of abnormal or psychotic thoughts: [hallucinations, delusions, preoccupation with violence, homicidal or suicidal ideation, and obsessions]. Judgment: [fair, good , very limited, poor,]. Insight: [very limited, good, fair. poor]. Orientation to [time, place and person]. Recent and remote memory: [Immediate, short-term and long-term memory is intact]. Attention span and concentration: [Poor, good, fair]. Language: [Normal]. Fund of knowledge: [adequate, intact, poor, fair, good]. Mood: [irrational, elated, irritable, distracted, depressed, anxious, restricted, neutral, fully communicative]. Affect: [appropriate, reactive, flat , constricted, animated, irrational, expansive, restricted, depressed, anxious, agitated, hypomania, lability]. DIAGNOSES: 1. . 2. . 3. . ASSESSMENT: MANAGEMENT PLAN: . TIME SPENT: minutes. Vital Signs Vital Signs Date Time Temp Pulse Resp B/P Pulse Ox O2 Delivery O2 Flow Rate FiO2 11/02/16 06:43 95.5 78 18 132/77 10/30/16 18:00 97 Room Air Current Medications Current Medications Medications (Trade) Dose Ordered Sig/Rhiannon Route PRN Reason Start Time Stop Time Status Last Admin Dose Admin Acetaminophen (Tylenol) 650 mg Q6HP PRN PO HEADACHE or DISCOMFORT 10/26/16 05:15 11/02/16 11:01 DC 10/30/16 18:10 Al Hydrox/Mg Hydrox/Simethicone (Mylanta) 30 ml Q4HP PRN PO HEARTBURN/INDIGESTION 10/26/16 05:15 11/02/16 11:01 DC Amitriptyline HCl (Elavil) 50 mg QHS PO 10/27/16 21:00 10/30/16 12:44 DC 10/29/16 21:40 Amitriptyline HCl (Elavil) 75 mg QHS PO 10/30/16 21:00 11/02/16 11:01 DC 11/01/16 20:08 Aspirin (Aspirin) 325 mg DAILY PO 10/26/16 09:00 11/02/16 11:01 DC 11/02/16 08:13 Clonazepam (KlonoPIN) 1 mg Q8HP PRN PO ANXIETY 10/26/16 21:45 11/02/16 11:01 DC 10/31/16 14:49 Duloxetine HCl (Cymbalta) 60 mg QAM PO 10/27/16 09:00 11/02/16 11:01 DC 11/02/16 08:13 Home Med (Med Rec Complete!) ASDIRECTED XX 10/26/16 05:30 10/26/16 05:30 DC Ketorolac Tromethamine (ToRADol) 10 mg Q6HP PRN PO HEADACHE 10/26/16 11:30 10/28/16 11:29 DC 10/27/16 20:16 [place] Carbonate ([place] Carbonate) 300 mg BID PO 10/27/16 09:00 11/02/16 11:01 DC 11/02/16 08:13 Magnesium Hydroxide (Milk Of Magnesia) 30 ml DAILYPRN PRN PO CONSTIPATION 10/26/16 05:15 11/02/16 11:01 DC 10/27/16 17:41 Metoclopramide HCl (Reglan) 10 mg TIDP PRN PO NAUSEA 10/26/16 11:30 11/02/16 11:01 DC 11/01/16 13:40 Multivitamins (Theragram-M) 1 tab DAILY PO 10/26/16 09:00 11/02/16 11:01 DC 11/02/16 08:13 Nicotine (Nicoderm Cq 21mg) 1 patch DAILY TD 10/26/16 09:00 11/02/16 11:01 DC 11/01/16 08:06 Quetiapine Fumarate (SEROquel) 50 mg DAILY@12 PO 10/30/16 12:00 10/30/16 12:44 DC 10/30/16 11:25 Quetiapine Fumarate (SEROquel) 100 mg DAILY@12 PO 10/31/16 12:00 11/02/16 11:01 DC 11/01/16 11:22 Quetiapine Fumarate (SEROquel) 200 mg QHS PO 10/27/16 21:00 10/30/16 12:44 DC 10/29/16 21:40 Quetiapine Fumarate (SEROquel) 300 mg QHS PO 10/30/16 21:00 11/02/16 11:01 DC 11/01/16 20:08 Sodium Chloride ([place] Nasal [place]) 2 spray Q2HP PRN NA NASAL DRYNESS 10/31/16 19:15 11/02/16 11:01 DC Tramadol HCl (Ultram) 50 mg BIDP PRN PO MIGRAINE 10/28/16 13:30 11/02/16 11:01 DC 11/02/16 03:37 Tramadol HCl (Ultram) 50 mg QIDP PRN PO PAIN 10/26/16 11:30 10/27/16 12:33 DC 10/27/16 12:23 Trazodone HCl (Desyrel) 50 mg QHSP PRN PO INSOMNIA 10/26/16 05:15 10/27/16 12:48 DC 10/26/16 21:33 Zolmitriptan (Zomig) 2.5 mg ASDIRECTED PRN PO MIGRAINE 10/26/16 11:30 11/02/16 11:01 DC 11/01/16 15:34 Allergies Coded Allergies: Bee Venom (Verified Allergy, Severe, Anaphylaxis , 10/06/14) SEAFOOD (Verified Allergy, Severe, Anaphylaxis , 10/06/14) Shellfish Allergy (Verified Allergy, Severe, Anaphylaxis , 10/06/14) Sertraline (Unverified Allergy, Intermediate, RASH, 10/26/16) TAPE (Verified Adverse Reaction, Mild, Burning/Itching of the skin. , ) SALOMON BERMUDEZ MD Nov 02, 2016 11:40
--- NOTE | 2016-11-02 11:42 | IPNPDOC ---
[facility] Progress Note Progress Note DATE OF SERVICE: 11/01/16 Subjective: Patient again is calm and cooperative on interview. She is engaged expresses insights gained from groups and her own reflections. She denies homicidal and suicidal ideations again today. Patient informed she will have a CPS interview once discharged. Patient observed to handle the stress of that news very well. Patient has displayed no agitation or aggression or belligerence on the unit in over 5-6 days. Patient is noted to be very social in the milieu and participate in groups. Patient is medication compliant and denies medication side effects. Patient reports good sleep and appetite. Again she denies SI/HI and denies AH/ VH. Objective: VITAL SIGNS: See below. NEW TEST RESULTS: See below CURRENT MEDICATIONS: See below. MENTAL STATUS EXAMINATION: Patient is a 36 year-old female who appears her stated age. Speech: Is regular rate and rhythm and spontaneous. Language skills are intact. Thought processes including: Logical, linear, Goal directed. Thought content: Appropriate, focused on her mental health description of abnormal or psychotic thoughts: No perceptual issues noted or reported Judgment: fair Insight: Fair Orientation to time, place and person. Recent and remote memory: Immediate, short-term and long-term memory is intact. Attention span and concentration: Good Language: Normal. Fund of knowledge: Fair Mood: Euthymic. Affect: Bright, SI denies. HI denies Assessment: Bipolar 1 disorder, most recent episode manic without psychotic features PTSD Plan: Continue Seroquel at 300 mg by mouth daily at bedtime for mood stabilization Continue Seroquel at 100 mg by mouth for mood stabilization/agitation/ migraine management Continue [place] at 300 mg by mouth twice a day for mood stabilization Continue Clonazepam 1 mg by mouth 3 times a day when necessary anxiety agitation Continue Duloxetine at 60 mg by mouth daily for depression/ fibromyalgia Continue remaining migraine headache management and all other medical medications as currently prescribed Estimated date of discharge: Tomorrow, 11/02/2016. TIME SPENT: 30 minutes. Vital Signs Vital Signs Date Time Temp Pulse Resp B/P Pulse Ox O2 Delivery O2 Flow Rate FiO2 11/02/16 06:43 95.5 78 18 132/77 10/30/16 18:00 97 Room Air Current Medications Current Medications Medications (Trade) Dose Ordered Sig/Rhiannon Route PRN Reason Start Time Stop Time Status Last Admin Dose Admin Acetaminophen (Tylenol) 650 mg Q6HP PRN PO HEADACHE or DISCOMFORT 10/26/16 05:15 11/02/16 11:01 DC 10/30/16 18:10 Al Hydrox/Mg Hydrox/Simethicone (Mylanta) 30 ml Q4HP PRN PO HEARTBURN/INDIGESTION 10/26/16 05:15 11/02/16 11:01 DC Amitriptyline HCl (Elavil) 50 mg QHS PO 10/27/16 21:00 10/30/16 12:44 DC 10/29/16 21:40 Amitriptyline HCl (Elavil) 75 mg QHS PO 10/30/16 21:00 11/02/16 11:01 DC 11/01/16 20:08 Aspirin (Aspirin) 325 mg DAILY PO 10/26/16 09:00 11/02/16 11:01 DC 11/02/16 08:13 Clonazepam (KlonoPIN) 1 mg Q8HP PRN PO ANXIETY 10/26/16 21:45 11/02/16 11:01 DC 10/31/16 14:49 Duloxetine HCl (Cymbalta) 60 mg QAM PO 10/27/16 09:00 11/02/16 11:01 DC 11/02/16 08:13 Home Med (Med Rec Complete!) ASDIRECTED XX 10/26/16 05:30 10/26/16 05:30 DC Ketorolac Tromethamine (ToRADol) 10 mg Q6HP PRN PO HEADACHE 10/26/16 11:30 10/28/16 11:29 DC 10/27/16 20:16 [place] Carbonate ([place] Carbonate) 300 mg BID PO 10/27/16 09:00 11/02/16 11:01 DC 11/02/16 08:13 Magnesium Hydroxide (Milk Of Magnesia) 30 ml DAILYPRN PRN PO CONSTIPATION 10/26/16 05:15 11/02/16 11:01 DC 10/27/16 17:41 Metoclopramide HCl (Reglan) 10 mg TIDP PRN PO NAUSEA 10/26/16 11:30 11/02/16 11:01 DC 11/01/16 13:40 Multivitamins (Theragram-M) 1 tab DAILY PO 10/26/16 09:00 11/02/16 11:01 DC 11/02/16 08:13 Nicotine (Nicoderm Cq 21mg) 1 patch DAILY TD 10/26/16 09:00 11/02/16 11:01 DC 11/01/16 08:06 Quetiapine Fumarate (SEROquel) 50 mg DAILY@12 PO 10/30/16 12:00 10/30/16 12:44 DC 10/30/16 11:25 Quetiapine Fumarate (SEROquel) 100 mg DAILY@12 PO 10/31/16 12:00 11/02/16 11:01 DC 11/01/16 11:22 Quetiapine Fumarate (SEROquel) 200 mg QHS PO 10/27/16 21:00 10/30/16 12:44 DC 10/29/16 21:40 Quetiapine Fumarate (SEROquel) 300 mg QHS PO 10/30/16 21:00 11/02/16 11:01 DC 11/01/16 20:08 Sodium Chloride ([place] Nasal [place]) 2 spray Q2HP PRN NA NASAL DRYNESS 10/31/16 19:15 11/02/16 11:01 DC Tramadol HCl (Ultram) 50 mg BIDP PRN PO MIGRAINE 10/28/16 13:30 11/02/16 11:01 DC 11/02/16 03:37 Tramadol HCl (Ultram) 50 mg QIDP PRN PO PAIN 10/26/16 11:30 10/27/16 12:33 DC 10/27/16 12:23 Trazodone HCl (Desyrel) 50 mg QHSP PRN PO INSOMNIA 10/26/16 05:15 10/27/16 12:48 DC 10/26/16 21:33 Zolmitriptan (Zomig) 2.5 mg ASDIRECTED PRN PO MIGRAINE 10/26/16 11:30 11/02/16 11:01 DC 11/01/16 15:34 Allergies Coded Allergies: Bee Venom (Verified Allergy, Severe, Anaphylaxis , 10/06/14) SEAFOOD (Verified Allergy, Severe, Anaphylaxis , 10/06/14) Shellfish Allergy (Verified Allergy, Severe, Anaphylaxis , 10/06/14) Sertraline (Unverified Allergy, Intermediate, RASH, 10/26/16) TAPE (Verified Adverse Reaction, Mild, Burning/Itching of the skin. , ) SALOMON BERMUDEZ MD Nov 02, 2016 11:42
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
== END 2016-11-02 10:45 | disposition home or self-care (01) | DRG 885 ==
LOC: M ED 22:01 → M PSY 10-26 05:32
PROVIDERS: ADMIT Psychiatry & Neurology Psychiatry; ATTEND Psychiatry & Neurology Psychiatry
DX: F31.13 Bipolar disorder, current episode manic without psychotic features, severe (principal); E87.0 Hyperosmolality and hypernatremia; F17.200 Nicotine dependence, unspecified, uncomplicated; M54.5 Low back pain; K21.9 Gastro-esophageal reflux disease without esophagitis; D64.9 Anemia, unspecified; E66.9 Obesity, unspecified; I50.9 Heart failure, unspecified; I11.0 Hypertensive heart disease with heart failure; Z68.35 Body mass index [BMI] 35.0-35.9, adult; G43.909 Migraine, unspecified, not intractable, without status migrainosus; Z95.0 Presence of cardiac pacemaker; Z98.84 Bariatric surgery status; S50.02XA Contusion of left elbow, initial encounter; W22.01XA Walked into wall, initial encounter; Y92.230 Patient room in hospital as the place of occurrence of the external cause

== ENCOUNTER 2016-12-26 11:50 | Emergency (ER) | payer MEDICARE, OTHER ==
[~2016-12-26] VITALS: Ht 157.5 cm; Wt 96.6 kg
[~2016-12-26 11:50] MED LIST changes: +DULO30CA PO; +LITH300C PO; +METO10TA2 PO; +NICO21PAT TD; +PRAZ2CAP PO; +QUET1TAB8 PO; +ZOMI2.5T PO
[2016-12-26] MEDS ORDERED: AMIT100TA PO (12:49)
[2016-12-26] MEDS ORDERED: [UNRECOGNIZED DRUG - CODE] PO (12:49)
[2016-12-26] MEDS ORDERED: HAIR1TAB5 PO (12:49)
[2016-12-26] MEDS ORDERED: PROTPAK PO (12:49)
[2016-12-26] MEDS ORDERED: LITH300C PO (12:49)
[2016-12-26] MEDS ORDERED: NS 1,000 ML IV SCH (13:16)
[2016-12-26] MEDS ORDERED: ASPIRIN 81 MG CHEW TABLET PO ONE (13:30)
[2016-12-26 13:34] LABS: INR 1.04
[2016-12-26 13:40] LABS: BASO % 0.5 % (0.0-1.0); EOS # 0.1 K/mm3 (0.0-0.50); EOS % 1.8 % (0.0-3.0); LARGE UNSTAINED CELL # 0.1 K/mm3 (0.0-0.4); LARGE UNSTAINED CELL % 1.2 % (0.0-4.0); LYMPH # 1.9 K/mm3 (1.5-4.5); LYMPH % 27.4 % (24.0-44.0); MEAN CORPUSCULAR HEMOGLOBIN 22.8 pg (27.0-33.0); MEAN CORPUSCULAR HGB CONC 31.1 g/dl (32.0-36.5); MEAN CORPUSCULAR VOLUME 73.1 fl (80.0-96.0); MONO # 0.3 K/mm3 (0.0-0.8); MONO % 4.9 % (0.0-5.0); NEUTROPHILS # 4.4 K/mm3 (1.8-7.7); NEUTROPHILS % 64.3 % (36.0-66.0); PLATELET COUNT, AUTOMATED 233 k/mm3 (150-450); RED CELL DISTRIBUTION WIDTH 15.1 % (11.5-14.5); WHITE BLOOD COUNT 6.9 K/mm3 (4.0-10.0)
--- NOTE | 2016-12-26 13:50 | REP ---
Clinical: Chest pain. Technique: PA and lateral. Comparison: 10/13/2016. Findings: Trace basilar atelectasis suggested. No focal consolidation, effusion, or pneumothorax. Mediastinum and cardiac silhouette normal. Skeletal structures intact. Impression: Trace basilar atelectasis suggested. Signed by Beni Lewis MD 12/26/2016 01:42 P
[2016-12-26 13:59] LABS: ALBUMIN 3.8 GM/DL (3.2-5.2); ALBUMIN/GLOBULIN RATIO 1.15 (1.00-1.93); ALKALINE PHOSPHATASE 81 U/L (45-117); ALT/SGPT 20 U/L (12-78); ANION GAP 10 MEQ/L (8-16); AST/SGOT 16 U/L (15-37); BILIRUBIN,DIRECT < 0.1 MG/DL (0.0-0.2); BILIRUBIN,TOTAL 0.2 MG/DL (0.2-1.0); BLOOD UREA NITROGEN 11 MG/DL (7-18); CALCIUM LEVEL 8.4 MG/DL (8.5-10.1); CARBON DIOXIDE LEVEL 23 MEQ/L (21-32); CHLORIDE LEVEL 109 MEQ/L (98-107); CREATININE FOR GFR 0.91 MG/DL (0.55-1.02); GLOMERULAR FILTRATION RATE > 60.0 (>60); GLUCOSE, FASTING 97 MG/DL (70-105); POTASSIUM SERUM 4.1 MEQ/L (3.5-5.1); SODIUM LEVEL 142 MEQ/L (136-145); TOTAL PROTEIN 7.1 GM/DL (6.4-8.2)
[2016-12-26 15:21] VITALS: BP 139/97
--- NOTE | 2016-12-26 18:06 | ECGEPIP ---
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 Electronically Signed On 12-26-2016 18:06:05 EDT by Som Boucher
[2016-12-27] MEDS ORDERED: BENT10CA PO (14:39)
[2016-12-27] MEDS ORDERED: ADDE10CA PO ×2 (14:57)
== END 2016-12-26 15:34 | disposition home or self-care (01) ==
LOC: M ED 14:26
DX: R07.9 Chest pain, unspecified (principal); I51.9 Heart disease, unspecified; F17.200 Nicotine dependence, unspecified, uncomplicated; Z79.82 Long term (current) use of aspirin; Z79.899 Other long term (current) drug therapy; Z91.030 Bee allergy status; Z91.013 Allergy to seafood; Z91.89 Other specified personal risk factors, not elsewhere classified; Z88.8 Allergy status to other drugs, medicaments and biological substances

== ENCOUNTER 2016-12-27 14:18 | Inpatient (IN) | payer MEDICARE, OTHER ==
[~2016-12-27] VITALS: Ht 157.5 cm; Wt 94.8 kg
[~2016-12-27 14:18] MED LIST changes: +AMIT100TA PO; +HAIR1TAB5 PO; +PROTPAK PO
[2016-12-27] MEDS ORDERED: BENT10CA PO (14:39)
[2016-12-27] MEDS ORDERED: ADDE10CA PO ×2 (14:57)
[2016-12-27 15:49] LABS: METHADONE URINE NEGATIVE (NEGATIVE)
[2016-12-27 20:43] LABS: MEAN CORPUSCULAR VOLUME 73.2 fl (80.0-96.0); RED CELL DISTRIBUTION WIDTH 15.1 % (11.5-14.5); WHITE BLOOD COUNT 7.6 K/mm3 (4.0-10.0)
[2016-12-27 21:06] LABS: ALBUMIN 3.9 GM/DL (3.2-5.2); ALBUMIN/GLOBULIN RATIO 1.15 (1.00-1.93); ALKALINE PHOSPHATASE 83 U/L (45-117); ALT/SGPT 18 U/L (12-78); ANION GAP 8 MEQ/L (8-16); AST/SGOT 11 U/L (15-37); BILIRUBIN,DIRECT < 0.1 MG/DL (0.0-0.2); BILIRUBIN,TOTAL 0.3 MG/DL (0.2-1.0); BLOOD UREA NITROGEN 11 MG/DL (7-18); CALCIUM LEVEL 8.5 MG/DL (8.5-10.1); CARBON DIOXIDE LEVEL 23 MEQ/L (21-32); CHLORIDE LEVEL 111 MEQ/L (98-107); CREATININE FOR GFR 1.08 MG/DL (0.55-1.02); GLOMERULAR FILTRATION RATE > 60.0 (>60); GLUCOSE, FASTING 109 MG/DL (70-105); POTASSIUM SERUM 3.8 MEQ/L (3.5-5.1); SODIUM LEVEL 142 MEQ/L (136-145); TOTAL PROTEIN 7.3 GM/DL (6.4-8.2)
[2016-12-27 21:46] VITALS: BP 131/70
[2016-12-27] MEDS ORDERED: LORazepam 2 MG TAB PO PRN (23:15)
[2016-12-27] MEDS ORDERED: diphenhydrAMINE 50 MG CAP PO PRN (23:15)
[2016-12-27] MEDS ORDERED: HALOPERIDOL 5 MG TAB PO PRN (23:15)
[2016-12-27] MEDS ORDERED: ACETAMINOPHEN TAB 650MG DOSE (2X325MG) PO PRN (23:15)
[2016-12-27] MEDS ORDERED: MAALOX 30 ML SUSP *UDC PO PRN (23:15)
[2016-12-27] MEDS ORDERED: MOM 30ML SUSPENSION UDC PO PRN (23:15)
[2016-12-27] MEDS ORDERED: traZODone 50 MG TAB PO PRN (23:15)
[2016-12-28 06:26] VITALS: BP 146/90
--- NOTE | 2016-12-28 06:51 | ED PDOC ---
Post-Departure Follow-Up patient signed out to me by Dr. Boucher pending evaluation by psychiatry. Dr. Law evaluated patient in the ED and recommended psychiatric admission. Lilian Cuellar MD Dec 28, 2016 06:51
[2016-12-28] MEDS ORDERED: NICOTINE 21MG/24HR 1 EA TRANSDERMAL TD SCH (09:00)
[2016-12-28] MEDS ORDERED: DULoxetine 30 MG CAP (CYMBALTA) PO SCH (09:00)
[2016-12-28] MEDS ORDERED: LITHIUM CARBONATE 600 MG CAP PO SCH (09:00)
[2016-12-28] MEDS ORDERED: QUEtiapine FUMARATE 100 MG TAB PO SCH ×2 (09:00→21:00)
--- NOTE | 2016-12-28 10:55 | HPEPDOC ---
Medical History and Physical Date of Admission Dec 27, 2016 at 19:19 History and Physical PCP: [facility] Supervisor: Dr Newman ATTENDING: Dr. Donn Longoria HPI: 36 yo female admitted to [facility] for bipolar disorder, being medically examined today. No acute medical complaints today. She has currently been evaluated by psychiatry, and felt stable for discharge home. Denies any fevers, chills, weakness, fatigue, AC, CP, SOB, cough, palpitations , abdominal pain, N/V/D or changes in bowel or bladder habits. PMHx: Bipolar disorder Anxiety Chronic migraine- following with [facility]. History of bradycardia arrhythmia/pacemaker- Dr Newman History of CHF- Dr Newman. Hypertension CAD/CABG Obesity/Gastric bypass-BMI 35.9 Chronic anemia Chronic pain- back pain/neck pain. Seen by Dr. Valero in the past GERD H/O Substance use Tobacco use PSHX: Hysterectomy Cholecystectomy Gastric bypass Pacemaker insertion CABG SOCHX: Resides in: [place] Marital Status: Kids: 6 children, 2 Employment: Works at [employer] Tobacco use: 2 per month ETOH: Denies Illicit Drugs: History of heroin, cocaine, acid, PCP. States recently buying Suboxone off the street. Patient states she does not know how much she has been using. IV Drug Use: Heroin in the past. Tattoos done unprofessionally: Denies FAMHX: Mother: Alive, estranged. Patient states history of bipolar and suicide attempt. Father: Alive, depression Siblings: One sister at 29, breast cancer. Children: 3 children Alive, well. One son currently hospitalized at [facility] in [place] for suicide attempt. One daughter at [id number] related to chromosome 8 abnormality. One daughter secondary to MVA. Unexpected deaths due to medical reasons: Maternal uncle 2 Suicide. Paternal uncle Suicide. ROS: As noted in HPI, otherwise 11pt ROS of systems reviewed and remarkable only for hysterectomy. PE: GEN: 36yoF, appears stated age. Well-nourished, well developed. No acute distress. Alert and oriented x 3. Patient is agitated throughout exam. HEENT: Normocephalic, atraumatic. Pupils are equal, round, and reactive to light. Extraocular movements are intact. No nystagmus appreciated. Sclera are nonicteric. Conjunctiva without injection. Nose midline. Nasal turbinates without bogginess. EACs both patent BL. TMs both visualized and shook with good cone of light, no bulging or erythema. No facial asymmetry. Moist mucous membranes. Dentition fair. Pharynx pink and moist, no cobblestoning. Neck supple , trachea midline. No lymphadenopathy or thyromegaly appreciated. CHEST: Regular rate and rhythm, +S1, +S2 LUNGS: Clear to auscultation bilaterally. No wheezes, rales, or rhonchi. Breathing appears symmetric and easy. Patient is speaking in full sentences. No accessory muscle use. ABD: Round, soft, non-tender, non-distended. +Bowel sounds throughout. No rebound or guarding. No costovertebral angle tenderness. EXT: Pulses 2+ bilaterally dorsalis pedis and radial. No lower extremity edema appreciated. SKIN: [place], dry, warm. Capillary refill <2sec. No rashes. Superficial lacerations noted left forearm NEURO: Alert and oriented x 3. Cranial nerves III-XII are intact. No focal deficits appreciated. EK12/26/16 [employer] RBBB. A&P: 36 yo female admitted to [facility] for bipolar disorder. 1. Psych. Plan per Psychiatry. EKG on file. ISTOP accessed with no recent results, patient fills controlled meds at [facility]. 2. Nicotine dependence. Patch available. 3. Borderline EKG. No cardiac signs or symptoms appreciated on exam, follow with PCP and her returning officer. 4. Follow up with PCP on discharge. [place] [facility]. 5. Elevated TSH. Outpatient follow-up with PCP. 6. Chronic migraine headaches. Continue outpatient regimen. Reglan 10 mg 3 times a day as needed. 7. CAD/CABG. continue aspirin 325 mg by mouth daily. 8. Hypertension/CHF. Continue outpatient follow-up with cardiology. 9. Chronic anemia. Baseline appears to be 9-10. Iron is noted to be 66, vitamin B12 264, folate 14.1 10/24/16. Outpatient follow-up with PCP. 10. Obesity/history of gastric bypass. Iron studies, B12, folate as noted above. Vitamin D level 5.7 10/17. 11. History of bradycardia arrhythmia/pacemaker. Continue outpatient follow-up with cardiology. 12. Chronic constipation. Continue Bentyl 10 mg as needed, Misoprostol 100 g daily. 14. Serum creatinine noted to be 1.08 on admission. Recheck BMP. 15. Pt is currently being discharged today as per attending psychiatrist. 16. Staff member present throughout exam, Ana NOLEN. Vital Signs Vital Signs Label Value Date Time Patient Temperature 98.8 degrees F 12/28/16 0626 Temperature Source Skin 12/28/16 0626 Pulse 100 12/28/16 0626 Respiratory Rate 18 bpm 12/28/16 0626 Blood Pressure Assessment 146/90 (108) 12/28/16 0626 Blood Pressure Assessment 131/70 (90) 12/27/16 2146 Item Value Date Time Oxygen Delivery Method Room Air 12/28/16 0626 Laboratory Data Labs 24H Laboratory Tests 2 12/27/16 15:07: Acetaminophen Level < 2.0L, Doyle Level < 0.20L, Salicylates Level 3.1L, Urine Amphetamines Screen POSITIVEH, Urine Benzodiazepines Screen POSITIVEH, Urine Opiates Screen NEGATIVE, Urine Barbiturates Screen NEGATIVE, Urine Cannabinoids Screen NEGATIVE, Urine Cocaine Metabolite Screen NEGATIVE, Urine Methadone Screen NEGATIVE, Urine Phencyclidine Screen NEGATIVE 12/27/16 20:13: Acetaminophen Level < 2.0L, Salicylates Level 2.9L, Aspartate Amino Transf (AST/ SGOT) 11L, Alanine Aminotransferase (ALT/SGPT) 18, Alkaline Phosphatase 83, Total Bilirubin 0.3, Direct Bilirubin < 0.1, Albumin 3.9, Albumin/Globulin Ratio 1.15, Anion Gap 8, Calcium Level 8.5, Ethyl Alcohol Level 0.003, Glomerular Filtration Rate > 60.0, Thyroid Stimulating Hormone (TSH) 7.860H, Total Protein 7.3 CBC/BMP Laboratory Tests 12/27/16 20:13 Red Blood Count 4.18, Mean Corpuscular Volume 73.2 L, Mean Corpuscular Hemoglobin 22.0 L, Mean Corpuscular Hemoglobin Concent 30.0 L, Red Cell Distribution Width 15.1 H Home Medications Scheduled (Hair Skin and Nails Formu) 1 Tab Tab 1 TAB PO DAILY (Protonix) 40 Mg Arsenio 40 MG PO DAILY Amitriptyline HCl (Amitriptyline HCl) 100 Mg Tab 100 MG PO QHS Amphetamine/Dextroamphetamine (Adderall Xr 10 mg) 1 Cap Cap 1 CAP PO QAM Amphetamine/Dextroamphetamine (Adderall Xr 10 mg) 1 Cap Cap 1 CAP PO DAILY Aspirin (Aspirin) 325 Mg Tab 325 MG PO DAILY Duloxetine Hcl (Cymbalta) 30 Mg Cap 60 MG PO QAM depression/ fibromyalgia Doyle Carbonate (Doyle Carbonate) 300 Mg Cap 600 MG PO DAILY Misoprostol (Misoprostol) 100 Mcg Tab 100 MCG PO DAILY Multivitamins *[facility] STOCKED* (Thera M Plus *[facility] STOCKED*) 1 Tab Tab 1 TAB PO DAILY Quetiapine Fumerate (Quetiapine Fumarate) 100 Mg Tab 300 MG PO QHS bipolar disorder Quetiapine Fumerate (Quetiapine Fumarate) 100 Mg Tab 100 MG PO DAILY@12 anxiety Scheduled PRN (Epipen 2-Arsenio) 0.3 Mg/0.3 Ml Inj 0.3 MG INJ ASDIRECTED PRN PRN ANAPHYLAXIS Clonazepam (Clonazepam) 1 Mg Tab 1 MG PO Q8HP PRN PRN ANXIETY Dicyclomine Hcl (Bentyl) 10 Mg Cap 10 MG PO DAILYPRN PRN PRN DIARRHEA Metoclopramide HCl (Metoclopramide HCl) 10 Mg Tab 10 MG PO TIDP PRN PRN NAUSEA Allergies Coded Allergies: Bee Venom (Verified Allergy, Severe, Anaphylaxis , 10/06/14) SEAFOOD (Verified Allergy, Severe, Anaphylaxis , 10/06/14) Shellfish Allergy (Verified Allergy, Severe, Anaphylaxis , 10/06/14) Sertraline (Unverified Allergy, Intermediate, RASH, 10/26/16) TAPE (Verified Adverse Reaction, Mild, Burning/Itching of the skin. , ) Lilia Santacruz Dec 28, 2016 10:55
[2016-12-28] MEDS ORDERED: NICO21DI5 TD (11:33)
[2016-12-28 12:49] LABS: CALCIUM LEVEL 8.2 MG/DL (8.5-10.1); CREATININE FOR GFR 1.14 MG/DL (0.55-1.02); GLOMERULAR FILTRATION RATE 56.8 (>60)
--- NOTE | 2016-12-28 15:41 | MHHPE ---
DATE OF ADMISSION: 12/28/2016 CHIEF COMPLAINT: "I am feeling better." HISTORY OF PRESENT ILLNESS: The patient is a 30-year-old woman with a history of bipolar disorder who was recently hospitalized at [facility] ([facility]) Inpatient Mental Health Unit, October 2016, following an intentional overdose. She was this time referred to the emergency room (ER) by her speeder machine operator to rule out a cardiac or other event. According to reports, she had a visit with her speeder machine operator the day prior, with complaints of chest pain, and while at the doctor's office was noted to have slurred speech and tachycardia and as a result was referred for further evaluation. The patient was noted in the ER to be hostile and antagonistic as well as appearing confused. Urine toxicology revealed presence of amphetamine; therefore, psychiatric consultation was requested, as it was suspected that she probably took an overdose of her Adderall or other drug. Of note, the patient was initially seen by this lead technical writer in the ER, on 12/27/2016, during which she was notably uncooperative, hostile, and unpredictable. She subsequently became combative when informed of the decision to admit her for further assessment. On interview today, she expresses regrets for her ER behavior, attributing it to possible adverse effect of her medications. She denies having intentionally ingested any pills in order to harm herself. PAST PSYCHIATRIC HISTORY: Patient reports a long history of psychiatric problems with past inpatient hospitalizations. She was last hospitalized at [facility] Inpatient Mental Health Unit from 10/26/2016 to 11/02/2016 due to intentional overdose. Her primary diagnosis at the time was bipolar disorder, and she was treated with a combination of quetiapine, lithium, and duloxetine. She is followed routinely at [facility]. SUBSTANCE ABUSE HISTORY: She denies use of any illicit substances or alcohol. MEDICAL HISTORY: 1. Chronic migraine. 2. History of bradycardia, dysrhythmia, pacemaker placement. 3. History of congestive heart failure. 4. Hypertension. 5. Coronary artery disease. 6. Obesity. 7. Chronic anemia. 8. Chronic back and neck pains. 9. Fibromyalgia. 10. Gastroesophageal reflux disease. Her body mass index (BMI) is currently 35.9. ALLERGIES: 1. Bee venom. 2. Seafood. 3. SERTRALINE. 4. Tape. PAST SURGICAL HISTORY: 1. Hysterectomy. 2. Cholecystectomy. 3. Gastric bypass. 4. Pacemaker insertion. 5. Coronary artery bypass graft. SOCIAL HISTORY: She resides in [place]. with six children; however, two are . She reports that she works at [employer]. She is a light smoker and did use intravenous (IV) heroin in the past but has not used for several years. FAMILY HISTORY: She reports that her mother is alive, has history of bipolar and previous suicide attempt. Her father also is alive and has history of depression. REVIEW OF SYSTEMS: As noted in medical history. Also refer to medical assessment by the physician speech pathology assistant. HOME MEDICATIONS: - amitriptyline 100 mg by mouth at bedtime - Adderall XR 10 mg in the morning - duloxetine 60 mg in the morning - lithium carbonate 300 mg in the morning and 600 mg at bedtime - quetiapine 100 mg in the morning and 300 mg at bedtime - aspirin 325 mg orally daily MENTAL STATUS EXAMINATION: The patient is of slight, short, overweight build. She is noted to be calm and cooperative, which is in contrast to her attitude and behavior in the emergency room. She is alert and fully oriented to time, place, and person. Her speech is fluent. Thought process organized and no delusional theme noted. She denies hallucinations and does not appear internally preoccupied. Her mood is currently not depressed or elated, and she denies suicidal or homicidal thoughts, plan, or intent. DIAGNOSES: Bipolar 1 disorder. ASSESSMENT: The patient was referred to the unit for admission due concerns of her being a danger to self. She has a history of bipolar disorder but is well connected with an outpatient mental health clinic. She currently appears stable and does not seem to pose risk of danger to self or others. Inpatient stay is no longer required at this point. PLAN: To be discharged with recommendation for continued followup with her primary psychiatrist. Plan is discussed with the patient and her , and both are in agreement. ERAN
--- NOTE | 2016-12-28 17:48 | MHDS ---
DATE OF ADMISSION: 12/27/2016 DATE OF DISCHARGE: 12/28/2016 HISTORY: The patient is a 30-year-old woman with a history of bipolar disorder, who was recently hospitalized, at [facility] inpatient mental health unit in October 2016, following an intentional overdose. She is this time referred to the emergency room by a metal stamper to rule out cardiac or other event. According to reports, she had a visit with her metal stamper the day prior with complaints of chest pain, and while at the doctor's office was noted to have slurred speech and tachycardia, and as a result was referred for further evaluation. The patient was noted in the emergency room to be hostile and antagonistic as well as appearing confused. Urine toxicology revealed the presence of amphetamine, therefore psychiatric consultation was requested as it was suspected that she probably had ingested an overdose of Adderall or other drug. Of note, the patient was initially seen by this manual writer in the emergency room same day of admission, during which she was notably uncooperative, hostile and unpredictable. She subsequently became combative when informed of the decision to admit her for further assessment. During interview on the unit earlier today she expressed regrets for her ER behavior attributing it to possible adverse affect of her medication. She denied having intentionally ingested any form of pills or had any thoughts of killing herself. PAST MEDICAL HISTORY: The patient reports a long history of psychiatric problems with past inpatient hospitalizations. She was last hospitalized at [facility] inpatient mental obed unit from 10/26/2016 to 11/02/2016 due to intentional overdose. Her primary diagnosis at the time was bipolar disorder and she was treated with a combination of quetiapine, lithium and duloxetine. She is followed routinely at [facility]. SUBSTANCE ABUSE HISTORY: She denies use of any illicit substances or alcohol. MEDICAL HISTORY: 1. Chronic migraine. 2. History of bradycardia. 3. History of congestive heart failure. 4. Hypertension. 5. Coronary artery disease. 6. Obesity. 7. Chronic back and neck pain. 9. Fibromyalgia. 10. Gastroesophageal reflux disease. ALLERGIES: 1. BEE VENOM. 2. SEAFOOD. 3. SERTRALINE. 4. TIP. PAST SURGICAL HISTORY: 1. Hysterectomy. 2. Cholecystectomy. 3. Gastric bypass. 4. Pacemaker insertion. 5. Coronary artery bypass grafts. SOCIAL HISTORY: She reports that she resides in [place], with six children, however, two of her children are . She works at [employer]. FAMILY HISTORY: Notable for both parents being alive with history of mental illness, bipolar disorder and depression. HOME MEDICATIONS: - amitriptyline 100 mg by mouth at bedtime - Adderall XR 10 mg in the morning - duloxetine 60 mg in the morning - lithium carbonate 300 mg in the morning and 600 mg at bedtime - quetiapine 100 mg in the morning and 300 mg at bedtime - aspirin 325 mg orally daily ADMISSION DIAGNOSIS: Bipolar I disorder. HOSPITAL COURSE: The patient in the past 24 hours on being on the unit has had no incident.course of her stay on the unit in the pat 24 hours showed no worsening of her symptoms. She is noted to have shown improvement in her mental status, and does not appear to pose any risk of danger to self or to others. It is determined that she safely can be managed in an outpatient setting. MENTAL STATUS ON EXAMINATION: She is of short height and overweight build. Behavior is calm and attitude cooperative. Alert and oriented to time, place and person. Speech is fluent; thought process organized, and no delusional contents. She denies hallucinations and does not appear internally preoccupied. Her mood is noted to be euthymic and she denies suicidal or homicidal thoughts, plans or intents. DISCHARGE DIAGNOSES: Bipolar I disorder. PLAN: The patient is being discharged, with recommendation for followup in next 48 hours with her primary psychiatrist. Discharge plan discussed with the patient and her and both are in agreement. ERAN
--- NOTE | 2016-12-29 22:02 | ECGEPIP ---
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
== END 2016-12-28 12:00 | disposition home or self-care (01) | DRG 885 ==
LOC: EDBD 14:18 → M ED 16:08 → M ED INP 19:19 → M PSY 21:42
PROVIDERS: ADMIT Psychiatry & Neurology Psychiatry; ATTEND Psychiatry & Neurology Psychiatry
DX: F31.9 Bipolar disorder, unspecified (principal); I50.9 Heart failure, unspecified; K21.9 Gastro-esophageal reflux disease without esophagitis; I25.10 Atherosclerotic heart disease of native coronary artery without angina pectoris; I10 Essential (primary) hypertension; M54.5 Low back pain; M54.2 Cervicalgia; M79.7 Fibromyalgia; E66.9 Obesity, unspecified; G43.909 Migraine, unspecified, not intractable, without status migrainosus; Z95.0 Presence of cardiac pacemaker; Z91.013 Allergy to seafood; Z91.038 Other insect allergy status; Z79.82 Long term (current) use of aspirin; Z79.899 Other long term (current) drug therapy; Z88.8 Allergy status to other drugs, medicaments and biological substances; K59.00 Constipation, unspecified; F17.200 Nicotine dependence, unspecified, uncomplicated; D64.9 Anemia, unspecified; Z68.35 Body mass index [BMI] 35.0-35.9, adult

== ENCOUNTER → 2017-03-08 | Outpatient (CLI) | payer MEDICARE, OTHER ==
[~2017-03-08] MED LIST changes: +ADDE10CA PO; +BENT10CA PO; +CYAN1000VL IM; +HYDR-3716 PO; +HYOS125TA SL; +NICO21DI5 TD; +TOPA25CA PO
--- NOTE | 2017-03-08 08:10 | REP ---
CT Head without contrast HISTORY: Cervicalgia COMPARISON: 02/19/2017 There is no intraparenchymal hemorrhage, acute infarct, mass or midline shift. The ventricular system is normal in appearance. There is no extra cerebral collection. There is no fracture. The visualized sinuses are clear. IMPRESSION: There is no intracranial lesion. Signed by Erasmo Walters MD 03/08/2017 08:01 A
--- NOTE | 2017-03-08 08:28 | REP ---
CT cervical spine without contrast HISTORY: Radiculopathy COMPARISON: 02/15/2016 mild There is no acute fracture or subluxation. There is no disc bulge or herniation. The spinal canal and neural foramina are patent. The intervertebral discs and vertebral bodies are normal in height. IMPRESSION: There is no acute fracture or subluxation. Signed by Erasmo Walters MD 03/08/2017 08:19 A
== END ==
LOC: M RAD 06:25
PROVIDERS: ATTEND Psychiatry & Neurology Neurology
DX: M54.12 Radiculopathy, cervical region (principal); M79.602 Pain in left arm; R55 Syncope and collapse; G43.119 Migraine with aura, intractable, without status migrainosus

== ENCOUNTER → 2017-03-19 | Outpatient (CLI) | payer MEDICARE, OTHER ==
[~2017-03-19] VITALS: Ht 154.9 cm; Wt 95.3 kg
[~2017-03-19] MED LIST changes: +LIDOCAINE 2% INJ 100 MG/5 ML SDV (FOR ANES.) As Ordered ONE; +NS 1,000 ML IV ONE; +PROPOFOL 500 MG/50 ML VIAL As Ordered ONE
[2017-03-19 08:02] VITALS: BP 98/79
== END | disposition home or self-care (01) ==
LOC: M OPP 06:09
PROVIDERS: ATTEND Internal Medicine Gastroenterology
DX: R10.13 Epigastric pain (principal); Z98.84 Bariatric surgery status; Z98.0 Intestinal bypass and anastomosis status; R11.2 Nausea with vomiting, unspecified; R19.5 Other fecal abnormalities; K21.9 Gastro-esophageal reflux disease without esophagitis; I25.10 Atherosclerotic heart disease of native coronary artery without angina pectoris; K62.5 Hemorrhage of anus and rectum; R00.1 Bradycardia, unspecified; I50.9 Heart failure, unspecified; R60.0 Localized edema; K58.9 Irritable bowel syndrome, unspecified; R12 Heartburn; D64.9 Anemia, unspecified; F41.9 Anxiety disorder, unspecified; F31.9 Bipolar disorder, unspecified; G43.909 Migraine, unspecified, not intractable, without status migrainosus; Z95.0 Presence of cardiac pacemaker; K25.9 Gastric ulcer, unspecified as acute or chronic, without hemorrhage or perforation; Z88.8 Allergy status to other drugs, medicaments and biological substances; Z91.030 Bee allergy status; Z91.013 Allergy to seafood; Z91.048 Other nonmedicinal substance allergy status; Z79.899 Other long term (current) drug therapy; Z80.41 Family history of malignant neoplasm of ovary

== ENCOUNTER 2017-04-19 18:55 | Emergency (ER) | payer MEDICARE, OTHER ==
[~2017-04-19] VITALS: Ht 154.9 cm; Wt 96.4 kg
[~2017-04-19 18:55] MED LIST changes: -ADDE10CA PO; +ADDE10CA3 PO; +EPIP0.3I2 IM; -EPIP0.3I2 INJ; -LIDOCAINE 2% INJ 100 MG/5 ML SDV (FOR ANES.) As Ordered ONE; +LITH300T PO; -LITH30TASA PO; +MISO100T22 PO; +MOBI4TAB PO; -MOBI7.5T10 PO; -MUCI600T34 PO; +MUCI600T37 PO; -MULTCHW13 PO; +MULTCHW14 PO; -NS 1,000 ML IV ONE; +OXYC-141 PO; -OXYC-299 PO; +PREV1CAP PO; -PREV30CA11 PO; -PROPOFOL 500 MG/50 ML VIAL As Ordered ONE; -RISP0.5T16 PO; +RISP0.5T21 PO; +TOPA1TAB PO; -TOPA25TA10 PO; +TRAZ50TA11 PO; -TRAZ50TA4 PO; -[UNRECOGNIZED DRUG - CODE] PO
[2017-04-19] MEDS ORDERED: NS 1,000 ML IV ONE (19:45)
[2017-04-19] MEDS ORDERED: KETOROLAC 30 MG/ML VIAL (J1885) IV ONE (19:45)
[2017-04-19 20:10] LABS: BASO # 0.1 K/mm3 (0.0-0.2); BASO % 0.6 % (0.0-1.0); EOS # 0.2 K/mm3 (0.0-0.50); EOS % 1.9 % (0.0-3.0); LARGE UNSTAINED CELL # 0.1 K/mm3 (0.0-0.4); LARGE UNSTAINED CELL % 1.1 % (0.0-4.0); LYMPH # 2.3 K/mm3 (1.5-4.5); LYMPH % 20.8 % (24.0-44.0); MEAN CORPUSCULAR HEMOGLOBIN 22.5 pg (27.0-33.0); MEAN CORPUSCULAR HGB CONC 31.5 g/dl (32.0-36.5); MEAN CORPUSCULAR VOLUME 71.3 fl (80.0-96.0); MONO # 0.5 K/mm3 (0.0-0.8); MONO % 4.3 % (0.0-5.0); NEUTROPHILS # 7.5 K/mm3 (1.8-7.7); NEUTROPHILS % 71.4 % (36.0-66.0); PLATELET COUNT, AUTOMATED 255 k/mm3 (150-450); RED CELL DISTRIBUTION WIDTH 17.6 % (11.5-14.5); WHITE BLOOD COUNT 10.5 K/mm3 (4.0-10.0)
[2017-04-19 20:14] LABS: ADD MORPHOLOGY? YES
[2017-04-19 20:15] LABS: INR 1.02
[2017-04-19 20:19] LABS: ABG BASE EXCESS -5.5 (-2.0-2.0); ABG PARTIAL PRESSURE CO2 28.4 mmHg (35.0-45.0); ABG PARTIAL PRESSURE O2 90.2 mmHg (75.0-100.0); ABG STANDARD HCO3 19.8 MEQ/L (22.0-26.0); ABG TOTAL CO2 18.9 MEQ/L (22.0-29.0)
[2017-04-19 20:32] LABS: ANISOCYTOSIS 1+; HYPOCHROMASIA 1+; MICROCYTOSIS 1+; OVALOCYTES 1+; POLYCHROMASIA 1+
[2017-04-19 20:34] LABS: ANION GAP 7 MEQ/L (8-16); BLOOD UREA NITROGEN 11 MG/DL (7-18); CALCIUM LEVEL 7.9 MG/DL (8.5-10.1); CARBON DIOXIDE LEVEL 20 MEQ/L (21-32); CHLORIDE LEVEL 112 MEQ/L (98-107); CHOLESTEROL LEVEL 169 MG/DL (<200); CREATININE FOR GFR 0.85 MG/DL (0.55-1.02); GLOMERULAR FILTRATION RATE > 60.0 (>60); GLUCOSE, FASTING 99 MG/DL (70-105); POTASSIUM SERUM 3.8 MEQ/L (3.5-5.1); SODIUM LEVEL 139 MEQ/L (136-145); TRIGLYCERIDES LEVEL 407 MG/DL (<150)
[2017-04-19 20:39] LABS: LITHIUM LEVEL < 0.20 MEQ/L (0.60-1.20)
[2017-04-19] MEDS ORDERED: diphenhydrAMINE INJ 50MG/ML VIAL (J1200) IV STA (21:04)
[2017-04-19] MEDS ORDERED: dexameTHASONE 20 MG/5 ML VIAL (J1100) IV ONE (21:15)
[2017-04-19] MEDS ORDERED: ISOVUE-370 76% 100ML VIAL (Q9967) As Ordered ONE (21:22)
--- NOTE | 2017-04-19 23:30 | REPUSA ---
CT angiogram of the chest Clinical statement: Chest pain and shortness of breath. Technique: Multiple axial CT images were obtained from the thoracic inlet through the upper abdomen a fter a bolus administration of nonionic intravenous contrast. Coronal and sagittal reconstructions we re also obtained. Comparison: 05/19/2014. Findings: The pulmonary arteries are well-opacified with contrast, with no intraluminal filling defec ts to suggest embolism. The thoracic aorta is unremarkable. Thyroid gland is within normal limits. Th ere is no thoracic lymphadenopathy. There are no pericardial or pleural effusions. There is linear at electasis in the right lower lobe. Limited imaging of the upper abdomen is unremarkable. There are no suspicious osseous lesions. Impression: 1. No evidence of pulmonary embolism. 2. Minimal linear atelectasis in the right lower lobe.
[2017-04-20] MEDS ORDERED: KETO10TAB PO (00:12)
[2017-04-20 00:23] VITALS: BP 146/79
--- NOTE | 2017-04-20 07:37 | ECGEPIP ---
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
--- NOTE | 2017-04-20 08:11 | REP ---
PA and lateral chest: Comparison 04/08/2017. Focal discoid atelectasis is again identified inferiorly in the left lung. Lung gomez otherwise clear and unchanged. Cardiac size is normal, unchanged. There is a dual-chamber pacemaker, unchanged. The nia, mediastinum, and bony thorax are unremarkable. Impression: Persisting discoid atelectasis inferiorly on the left. Otherwise, negative PA and lateral chest. Signed by Eric Taylor MD 04/20/2017 08:03 A
[2017-07-12] MEDS ORDERED: [UNRECOGNIZED DRUG - CODE] PO (10:15)
[2017-07-12] MEDS ORDERED: ASPI325T24 PO (10:15)
[2017-07-12] MEDS ORDERED: MISO200T56 PO (10:15)
== END 2017-04-20 00:18 | disposition home or self-care (01) ==
LOC: M ED 18:55
DX: R07.89 Other chest pain (principal); D64.9 Anemia, unspecified; J45.909 Unspecified asthma, uncomplicated; G43.909 Migraine, unspecified, not intractable, without status migrainosus; K21.9 Gastro-esophageal reflux disease without esophagitis; F32.9 Major depressive disorder, single episode, unspecified; F41.9 Anxiety disorder, unspecified; R00.1 Bradycardia, unspecified; F17.200 Nicotine dependence, unspecified, uncomplicated; Z79.899 Other long term (current) drug therapy; Z91.030 Bee allergy status; Z91.013 Allergy to seafood; Z91.89 Other specified personal risk factors, not elsewhere classified; Z88.8 Allergy status to other drugs, medicaments and biological substances
CPT/HCPCS: 36415; 36600; 71020; 71275; 80048; 80061; 80178; 82550; 82553; 82803; 84484; 85025; 85610; 85730; 93005; 96361; 96374; 96375; 99284; J1100; J1200; J1885; Q9967

== ENCOUNTER 2017-06-08 11:09 | Emergency (ER) | payer MEDICARE, OTHER ==
[~2017-06-08] VITALS: Ht 154.9 cm; Wt 88.1 kg
[2017-06-08] MEDS ORDERED: ZONI100C2 PO (11:24)
[2017-06-08] MEDS ORDERED: ADDE1TAB14 PO (11:24)
[2017-06-08] MEDS ORDERED: VERA40TA PO (11:24)
[2017-06-08] MEDS ORDERED: ONDANSETRON 4 MG ORAL DISINTEGRATING TAB (S0181) PO ONE (12:30)
[2017-06-08] MEDS ORDERED: SUCRALFATE SUSP 1GM/10ML UD PO ONE (12:30)
[2017-06-08] MEDS ORDERED: GI COCKTAIL 50ML BTL(HYOSCYAMINE/MAALOX/LIDOCAINE VISCOUS)(1:3:1) PO ONE (12:30)
[2017-06-08 13:27] LABS: ALBUMIN 3.7 GM/DL (3.2-5.2); ALBUMIN/GLOBULIN RATIO 1.06 (1.00-1.93); ALKALINE PHOSPHATASE 79 U/L (45-117); ALT/SGPT 23 U/L (12-78); AMYLASE 23 U/L (25-115); ANION GAP 13 MEQ/L (8-16); AST/SGOT 11 U/L (15-37); BILIRUBIN,DIRECT < 0.1 MG/DL (0.0-0.2); BILIRUBIN,TOTAL 0.2 MG/DL (0.2-1.0); BLOOD UREA NITROGEN 9 MG/DL (7-18); CALCIUM LEVEL 8.7 MG/DL (8.5-10.1); CARBON DIOXIDE LEVEL 18 MEQ/L (21-32); CHLORIDE LEVEL 111 MEQ/L (98-107); CREATININE FOR GFR 0.94 MG/DL (0.55-1.02); GLOMERULAR FILTRATION RATE > 60.0 (>60); GLUCOSE, FASTING 167 MG/DL (70-105); POTASSIUM SERUM 3.9 MEQ/L (3.5-5.1); SODIUM LEVEL 142 MEQ/L (136-145); TOTAL PROTEIN 7.2 GM/DL (6.4-8.2)
--- NOTE | 2017-06-08 13:30 | REP ---
Clinical: abdominal pain. Technique: Upright view of the chest with supine and upright views of the abdomen and pelvis. Findings: Frontal upright view of the chest demonstrates no acute cardiopulmonary process or free air below the diaphragm to suspect pneumoperitoneum. Supine and upright views of the abdomen and pelvis demonstrate nonspecific bowel gas pattern without obstruction or perforation. Moderate fecal stasis noted. No organomegaly. No abnormal calcifications. Skeletal structures normal for age. Impression: Moderate fecal stasis. Nonspecific bowel gas pattern. Signed by Beni Lewis MD 06/08/2017 01:22 P
[2017-06-08] MEDS ORDERED: NORCOTAB PO (13:53)
[2017-06-08] MEDS ORDERED: ZOFR4TAB3 PO (13:53)
[2017-06-08] MEDS ORDERED: SUCR1SS PO (13:53)
[2017-06-08 14:08] VITALS: BP 124/74
[2017-06-09] MEDS ORDERED: AMPH20CA PO (22:39)
[2017-06-09] MEDS ORDERED: ADDE1TAB14 PO (22:39)
[2017-06-09] MEDS ORDERED: CLON0.5T PO (22:39)
[2017-06-09] MEDS ORDERED: FENO48TA2 PO (22:40)
[2017-06-09] MEDS ORDERED: DRIS50002 PO (22:40)
[2017-06-09] MEDS ORDERED: ONDA4TAB5 PO (22:41)
[2017-07-12] MEDS ORDERED: MISO200T56 PO (10:15)
[2017-07-12] MEDS ORDERED: ASPI325T24 PO (10:15)
[2017-07-12] MEDS ORDERED: [UNRECOGNIZED DRUG - CODE] PO (10:15)
== END 2017-06-08 14:17 | disposition home or self-care (01) ==
LOC: M ED 11:09
DX: K29.70 Gastritis, unspecified, without bleeding (principal); K59.00 Constipation, unspecified; R11.2 Nausea with vomiting, unspecified; I50.9 Heart failure, unspecified; I25.10 Atherosclerotic heart disease of native coronary artery without angina pectoris; J45.909 Unspecified asthma, uncomplicated; K58.9 Irritable bowel syndrome, unspecified; F31.9 Bipolar disorder, unspecified; E78.70 Disorder of bile acid and cholesterol metabolism, unspecified; Z79.899 Other long term (current) drug therapy; Z88.8 Allergy status to other drugs, medicaments and biological substances; Z91.030 Bee allergy status; Z91.013 Allergy to seafood; L23.1 Allergic contact dermatitis due to adhesives; Z98.0 Intestinal bypass and anastomosis status; I25.2 Old myocardial infarction

== ENCOUNTER 2017-06-09 17:46 | Inpatient (IN) | payer MEDICARE, OTHER ==
[~2017-06-09] VITALS: Ht 152.4 cm; Wt 100.9 kg
[~2017-06-09 17:46] MED LIST changes: +ADDE1TAB14 PO; +NORCOTAB PO; +SUCR1SS PO; +VERA40TA PO; +ZOFR4TAB3 PO; +ZONI100C2 PO
[2017-06-09 19:19] LABS: BASO % 0.8 % (0.0-1.0); EOS # 0.1 K/mm3 (0.0-0.50); LARGE UNSTAINED CELL # 0.1 K/mm3 (0.0-0.4); LARGE UNSTAINED CELL % 1.2 % (0.0-4.0); LYMPH # 1.2 K/mm3 (1.5-4.5); LYMPH % 28.2 % (24.0-44.0); MEAN CORPUSCULAR HEMOGLOBIN 21.8 pg (27.0-33.0); MEAN CORPUSCULAR HGB CONC 30.1 g/dl (32.0-36.5); MEAN CORPUSCULAR VOLUME 72.5 fl (80.0-96.0); MONO # 0.2 K/mm3 (0.0-0.8); MONO % 5.3 % (0.0-5.0); NEUTROPHILS # 2.5 K/mm3 (1.8-7.7); NEUTROPHILS % 62.6 % (36.0-66.0); PLATELET COUNT, AUTOMATED 240 k/mm3 (150-450); RED CELL DISTRIBUTION WIDTH 16.4 % (11.5-14.5)
[2017-06-09 19:28] LABS: INR 1.05
[2017-06-09 19:30] LABS: CONTROL LINE HCG INT CTR LINE PRESENT
--- NOTE | 2017-06-09 19:37 | REP ---
Clinical: Syncope . Comparison: 06/08/2017 Findings: The mediastinum and cardiac silhouette are stable and within normal limits for portable technique. The lung gomez are clear without acute consolidation, effusion, or pneumothorax. Skeletal structures are intact. Impression: No acute cardiopulmonary process appreciated. Signed by Beni Lewis MD 06/09/2017 07:29 P
[2017-06-09 19:39] LABS: ANION GAP 6 MEQ/L (8-16); BLOOD UREA NITROGEN 9 MG/DL (7-18); CALCIUM LEVEL 7.9 MG/DL (8.5-10.1); CARBON DIOXIDE LEVEL 26 MEQ/L (21-32); CHLORIDE LEVEL 108 MEQ/L (98-107); CREATININE FOR GFR 0.89 MG/DL (0.55-1.02); FREE T4 0.74 NG/DL (0.76-1.46); GLOMERULAR FILTRATION RATE > 60.0 (>60); GLUCOSE, FASTING 107 MG/DL (70-105); MAGNESIUM LEVEL 2.1 MG/DL (1.8-2.4); SODIUM LEVEL 140 MEQ/L (136-145)
[2017-06-09] MEDS ORDERED: GASTROGRAFIN SOLUTION 30ML (Q9963) As Ordered ONE (20:02)
[2017-06-09 20:09] LABS: ALBUMIN 3.4 GM/DL (3.2-5.2); ALBUMIN/GLOBULIN RATIO 1.06 (1.00-1.93); ALKALINE PHOSPHATASE 148 U/L (45-117); ALT/SGPT 592 U/L (12-78); AST/SGOT 633 U/L (15-37); BILIRUBIN,DIRECT 0.3 MG/DL (0.0-0.2); BILIRUBIN,TOTAL 0.5 MG/DL (0.2-1.0); TOTAL PROTEIN 6.6 GM/DL (6.4-8.2)
[2017-06-09] MEDS ORDERED: GASTROGRAFIN SOLUTION 30ML (Q9963) PO ONE ×2 (20:15)
--- NOTE | 2017-06-09 20:27 | REP ---
Clinical: Syncope with trauma . Comparison: 05/07/2017 . Findings: The ventricles, sulci, and cisterns are normal in position and appearance. Boone-white differentiation is maintained. No acute intracranial hemorrhage, mass/mass effect, pathology or trauma/injury. No evidence for acute infarction. No extra-axial fluid collection. Calvarium is intact. Paranasal sinuses and mastoid air cells are clear. Impression: Normal noncontrast head CT. No evidence for acute intracranial pathology or trauma/injury. Signed by Beni Lewis MD 06/09/2017 08:18 P
[2017-06-09] MEDS ORDERED: ACETAMINOPHEN TAB 650MG DOSE (2X325MG) PO ONE (20:45)
[2017-06-09] MEDS ORDERED: ONDANSETRON 4MG/2ML VIAL (J2405) IV ONE (21:00)
[2017-06-09] MEDS ORDERED: ISOVUE-370 76% 100ML VIAL (Q9967) As Ordered ONE (21:18)
--- NOTE | 2017-06-09 22:20 | REPUSA ---
CLINICAL HISTORY: Upper abdominal pain. Hematemesis. TECHNIQUE: CT abdomen and pelvis following administration of IV contrast. Total DLP 1144.4 mGy*cm COMPARISON: CT chest May 19, 2014. CT ABDOMEN WITH CONTRAST: Lung bases: Bibasilar dependent atelectasis. Cardiac pacer wires noted. Stomach: Surgical changes of gastric bypass. Liver: No intrahepatic ductal dilation. 18.7 cm length. Gallbladder: Cholecystectomy. Pancreas: No pancreatic duct dilation. Bowel loops: Proximal small bowel loops measure up to 2.8 cm diameter. Left upper quadrant ileostomy noted, without obstruction. Spleen: 13.2 cm length. Adrenals: Normal size. Kidneys: No hydronephrosis. Aorta: Normal caliber. Peritoneum: No free air. CT PELVIS WITH CONTRAST: Colon: Nondistended. Bladder: Normally distended. Uterus: Hysterectomy. Peritoneum: No fluid. Skeleton: No acute findings. IMPRESSION: 1. Status post gastric bypass without evidence of complication. 2. Mild hepatosplenomegaly.
[2017-06-09] MEDS ORDERED: NS 1,000 ML IV ONE (22:30)
[2017-06-09] MEDS ORDERED: AMPH20CA PO (22:39)
[2017-06-09] MEDS ORDERED: ADDE1TAB14 PO (22:39)
[2017-06-09] MEDS ORDERED: CLON0.5T PO (22:39)
[2017-06-09] MEDS ORDERED: FENO48TA2 PO (22:40)
[2017-06-09] MEDS ORDERED: DRIS50002 PO (22:40)
[2017-06-09] MEDS ORDERED: ONDA4TAB5 PO (22:41)
[2017-06-09] MEDS ORDERED: PANTOPRAZOLE 40MG INJ (PROTONIX) (C9113) IV ONE (22:45)
[2017-06-09] MEDS: PANTOPRAZOLE SODIUM 40 MG in D5W MINI-BAG PLUS 50 ML IV SCH (22:45)
[2017-06-10] VITALS (7 sets, daily range): BP systolic 101–123; BP diastolic 51–88
[2017-06-10] MEDS ORDERED: CALCIUM GLUCONATE 1,000 MG in D5W MINI-BAG PLUS 100 ML IV ONE ×2
[2017-06-10] MEDS ORDERED: traMADol 50 MG TAB PO ONE
[2017-06-10] MEDS ORDERED: NS 1,000 ML IV SCH
--- NOTE | 2017-06-10 00:14 | HPEPDOC ---
Medical History and Physical Date of Admission 06/09/17 History and Physical PRIMARY CARE PROVIDER: [place] [facility] ATTENDING: Dr. Natalia Haines CHIEF COMPLAINT: 'I passed out' HISTORY OF PRESENT ILLNESS: This is a 37-year-old female past medical history of gastric bypass, esophageal stricture status post dilation, bipolar disorder, CHF, hypertension, GERD, substance abuse, chronic pain, chronic migraines who presents complaining of syncope and hematemesis. Patient presents to the ED yesterday complaining of hematemesis which spontaneously resolved. Patient was sent home. Was feeling well up until this morning. This morning she went up to stand up and felt lightheaded and dizzy and fell down striking the right side of her face. Patient's states she stood up and continue to walk and shortly after she syncopized in the bathroom however is not sure if she struck her head. Patient denies chest pain/ shortness of breath/palpitations. She did have a history of syncope 3 months ago with unknown etiology. Patient states she developed hematemesis yesterday 2, and today 4. This was bright red and followed by vomiting of food. Patient does not that she has had a history of esophageal stricture which was dilated 3-4 times in the past. She' s had an EGD in March (see below). Currently, the patient was relatively hypotensive, and she has been started on blood transfusions. She is mentating well. Not tachycardic. Saturating well. ED states they will be in contact with GI. PAST MEDICAL HISTORY: As per HPI PAST SURGICAL HISTORY: Hysterectomy, cholecystectomy, gastric bypass, PPM, C- section 2 SOCIAL HISTORY: Currently denies tobacco, alcohol, illicit drug use. Has a history of tobacco abuse 1 pack per day 20 years. Also has a history of heroin , cocaine, acid, PCP, Suboxone off the street abuse. Lives with . FAMILY HISTORY: Family history of hypertension and CAD. Mother and brother with history of gastric bypass. ALLERGIES: Please see below. REVIEW OF SYSTEMS: HEENT: Denies sore throat/headache CARDIOVASCULAR: Denies chest pain/palpitations RESPIRATORY: Denies shortness of breath/cough GASTROINTESTINAL: denies nausea/vomiting GENITOURINARY: Denies dysuria/urinary urgency. MUSCULOSKELETAL: Denies myalgias/arthralgias NEUROLOGICAL: Denies any focal weakness HOME MEDICATIONS: Please see below. PHYSICAL EXAMINATION: Vitals: (see below) General: No acute distress, laying comfortably in bed. HEENT: Moist mucous membranes. Mild tenderness in the right per orbital region where she fell. No hematoma/ecchymosis. Neck: No JVD or lymphadenopathy Cardiac: RRR, No murmurs Pulm: Clear to auscultation b/l. No wheezing, rhonchi Abd: NT/ND + BS Ext: Trace edema bilateral lower extremities. No cyanosis Neuro: Strength 5/5 BUE and BLE. CN 2-12 intact. F to N intact LABORATORY DATA: See below. IMAGING: CT Abd/pelvis 06/09/17 IMPRESSION: 1. Status post gastric bypass without evidence of complication. 2. Mild hepatosplenomegaly. CXR 06/09/17 Impression: No acute cardiopulmonary process appreciated. MICROBIOLOGY: Please see below. ASSESSMENT/PLAN: 1. Syncope- given the patient's symptoms there is concern for orthostatic hypotension especially given her current hypotensive state. Although the patient 's hemoglobin is relatively her baseline, we will transfuse her unit PRBC given her hematemesis presentation and hypotension. Echocardiogram. Trend cardiac enzymes. EKG in the a.m. We'll monitor on telemetry. 2. Hematemesis- history of gastric bypass and esophageal strictures requiring dilatation. CBC every 6 hours. 2 units PRBC. Protonix drip. GI on consult. 3. Transaminitis- CT abdomen pelvis (see above) 6. Hepatitis panel ordered. Tylenol level negative. History of hospitalization for ? Liver failure in [facility] in November - we will try to obtain records. Recent LFTs were within normal limits. Patient has an abdominal ultrasound ordered. History of cholecystectomy. We will hold her fibrate. 4. Status post PPM. 5. History of hypertension- has been off her blood pressure medications after her gastric bypass 6. History of Iron deficiency anemia - will start ferrous sulfate.? Related to her gastric bypass 7. History of bipolar disorder- continue home meds 8. Depression- continue home meds 9. History of chronic migraines 10. History of substance abuse- urine tracks train ordered DVT prophylaxis- SCDs Patient was followed by Dr. Natalia Haines starting 06/10/17 at 7 AM. Vital Signs Vital Signs Date Time Temp Pulse Resp B/P (MAP) Pulse Ox O2 Delivery O2 Flow Rate FiO2 06/09/17 21:12 98/55 (69) 06/09/17 21:11 44 97 06/09/17 17:46 97.6 16 Room Air Laboratory Data Labs 24H Laboratory Tests 2 06/09/17 19:06: White Blood Count 4.0, Red Blood Count 4.01, Hemoglobin 8.8L, Hematocrit 29.1L, Mean Corpuscular Volume 72.5L, Mean Corpuscular Hemoglobin 21.8L, Mean Corpuscular Hemoglobin Concent 30.1L, Red Cell Distribution Width 16.4H, Platelet Count 240, Neutrophils (%) (Auto) 62.6, Lymphocytes (%) (Auto) 28.2, Monocytes (%) (Auto) 5.3H, Eosinophils (%) (Auto) 2.0, Basophils (%) (Auto) 0.8 , Neutrophils # (Auto) 2.5, Lymphocytes # (Auto) 1.2L, Monocytes # (Auto) 0.2, Eosinophils # (Auto) 0.1, Basophils # (Auto) 0.0, Large Unclassified Cells % 1.2 , Large Unclassified Cells # 0.1, Prothrombin Time 13.8, Prothromb Time International Ratio 1.05, Activated Partial Thromboplast Time 26.2L, Anion Gap 6L, Glomerular Filtration Rate > 60.0, Blood Urea Nitrogen 9, Creatinine 0.89, Sodium Level 140, Potassium Level 4.0, Chloride Level 108H, Carbon Dioxide Level 26, Calcium Level 7.9L, Total Creatine Kinase 74, Magnesium Level 2.1, Aspartate Amino Transf (AST/SGOT) 633H, Alanine Aminotransferase (ALT/SGPT) 592H , Alkaline Phosphatase 148H, Total Bilirubin 0.5#, Direct Bilirubin 0.3H, Creatine Kinase MB 1.0, Creatine Kinase MB Relative Index 1.35, Troponin I < 0.02, Total Protein 6.6, Albumin 3.4, Albumin/Globulin Ratio 1.06, Lipase 48L, Thyroid Stimulating Hormone (TSH) 2.910, Free Thyroxine 0.74L, Human Chorionic Gonadotropin, Qual NEGATIVE 06/09/17 19:09: Bedside Glucose (Misc Panel) 114H CBC/BMP Laboratory Tests 06/09/17 19:06 Red Blood Count 4.01, Mean Corpuscular Volume 72.5 L, Mean Corpuscular Hemoglobin 21.8 L, Mean Corpuscular Hemoglobin Concent 30.1 L, Red Cell Distribution Width 16.4 H, Neutrophils (%) (Auto) 62.6, Lymphocytes (%) (Auto) 28.2, Monocytes (%) (Auto) 5.3 H, Eosinophils (%) (Auto) 2.0, Basophils (%) ( Auto) 0.8, Neutrophils # (Auto) 2.5, Lymphocytes # (Auto) 1.2 L, Monocytes # ( Auto) 0.2, Eosinophils # (Auto) 0.1, Basophils # (Auto) 0.0, Calcium Level 7.9 L , Total Creatine Kinase 74 Home Medications Scheduled Amitriptyline HCl (Amitriptyline HCl) 25 Mg Tab, 25 MG PO QHS Amitriptyline HCl (Amitriptyline HCl) 100 Mg Tab, 100 MG PO QHS Cyanocobalamin (Cyanocobalamin) 1,000 Mcg/1 Ml Inj, 1,000 MCG IM QWEEK Fenofibrate (Fenofibrate) 48 Mg Tab, 48 MG PO DAILY Vitamin D (Drisdol) 50,000 Unit Cap, 50,000 UNIT PO QWEEK Zonisamide (Zonisamide) 100 Mg Cap, 200 MG PO QHS Scheduled PRN (Epipen 2-Arsenio) 0.3 Mg/0.3 Ml Inj, 0.3 MG IM ASDIRECTED PRN for ANAPHYLAXIS Amphetamine/Dextroamphetamine (Amphetamine/Dextroampheta 20 mg) 1 Cap Cap, 1 CAP PO DAILY PRN for ADHD Amphetamine/Dextroamphetamine (Adderall 5 mg) 1 Tab Tab, 10 MG PO DAILY PRN for ADHD TAKES AT NOON Clonazepam (Clonazepam) 0.5 Mg Tab, 0.5 MG PO TID PRN for ANXIETY Ondansetron HCl (Ondansetron HCl) 4 Mg Tab, 4 MG PO Q4H PRN for NAUSEA Allergies Coded Allergies: Bee Venom (Verified Allergy, Severe, Anaphylaxis , 04/19/17) SEAFOOD (Verified Allergy, Severe, Anaphylaxis , 04/19/17) Shellfish Allergy (Verified Allergy, Severe, Anaphylaxis , 04/19/17) Sertraline (Unverified Allergy, Intermediate, RASH, 04/19/17) TAPE (Verified Adverse Reaction, Mild, Burning/Itching of the skin. , 04/19) MATI OSEI MD Jun 10, 2017 00:14
--- NOTE | 2017-06-10 01:10 | REPUSA ---
HISTORY: Fall. TECHNIQUE: Multiple thin section helically-acquired axially-displayed and helically acquired coronall y displayed computed tomographic images of the face are obtained from the mandible through the fronta l sinuses, with images obtained at soft tissue and bone window. 2D reformatted images were performed. FINDINGS: Normal bony mineralization. No fractures. Normal orbits. Normal, clear paranasal sinuses. Normal oral and nasal cavities. Normal infratemporal fossa and deep parapharyngeal spaces with normal muscles of mastication. Normal parotid and submandibular glands. IMPRESSION: Normal examination of the face. Thank you for your kind referral of this patient
[2017-06-10] MEDS: ONDANSETRON 4MG/2ML VIAL (J2405) IV PRN ×3 (02:56→18:47)
[2017-06-10] MEDS: PANTOPRAZOLE SODIUM 40 MG in D5W MINI-BAG PLUS 50 ML IV SCH ×4 (03:45→19:56)
[2017-06-10 07:47] LABS: BASO % 0.7 % (0.0-1.0); EOS # 0.1 K/mm3 (0.0-0.50); EOS % 3.2 % (0.0-3.0); LARGE UNSTAINED CELL # 0.1 K/mm3 (0.0-0.4); LARGE UNSTAINED CELL % 1.5 % (0.0-4.0); LYMPH # 1.3 K/mm3 (1.5-4.5); LYMPH % 31.6 % (24.0-44.0); MEAN CORPUSCULAR HEMOGLOBIN 23.6 pg (27.0-33.0); MEAN CORPUSCULAR HGB CONC 32.3 g/dl (32.0-36.5); MEAN CORPUSCULAR VOLUME 72.9 fl (80.0-96.0); MONO # 0.2 K/mm3 (0.0-0.8); NEUTROPHILS # 2.4 K/mm3 (1.8-7.7); NEUTROPHILS % 58.1 % (36.0-66.0); PLATELET COUNT, AUTOMATED 233 k/mm3 (150-450); RED CELL DISTRIBUTION WIDTH 16.9 % (11.5-14.5); WHITE BLOOD COUNT 4.2 K/mm3 (4.0-10.0)
[2017-06-10 08:08] LABS: ANION GAP 9 MEQ/L (8-16); BLOOD UREA NITROGEN 7 MG/DL (7-18); CALCIUM LEVEL 7.8 MG/DL (8.5-10.1); CARBON DIOXIDE LEVEL 21 MEQ/L (21-32); CHLORIDE LEVEL 113 MEQ/L (98-107); CREATININE FOR GFR 0.78 MG/DL (0.55-1.02); GLOMERULAR FILTRATION RATE > 60.0 (>60); GLUCOSE, FASTING 95 MG/DL (70-105); POTASSIUM SERUM 4.1 MEQ/L (3.5-5.1); SODIUM LEVEL 143 MEQ/L (136-145)
--- NOTE | 2017-06-10 09:13 | ECGEPIP ---
Stationary ECG Study [facility] Test Date: 2017-06-10 Pat Name: ADRI KESSLER Department: Room: [place] [address] Gender: F Fiberglass Laminator: DEVON : 1980 Requested By: MATI OSEI Order Number: [id number] Reading MD: Shravan Dobbs Measurements Intervals [place] Rate: 64 P: 35 [place]: 181 QRS: -2 QRSD: 92 T: 16 QT: 404 QTc: 418 Interpretive Statements Normal sinus rhythm Generally low QRS voltages Nonspecific T wave abnormality Compared to prior EKG of 06/09/2017, incomplete right bundle branch block is not evident in this tracing Electronically Signed On 06-10-2017 9:12:48 EDT by Shravan Dobbs
--- NOTE | 2017-06-10 09:32 | REP ---
Clinical: Acute right upper quadrant abdominal pain with hematemesis. Technique: Boone scale ultrasound using curved array transducer. Findings: Fatty infiltration to the liver is appreciated without focal hepatic lesion. Visualized portions of the pancreas are unremarkable but limited due to interposed bowel gas. The patient is status post cholecystectomy. There is no evidence for biliary ductal dilatation and the common bile duct measures 5.9 mm diameter. The right kidney is normal in reniform shape without hydronephrosis and measures 11.7 x 4.6 x 5.0 cm. No ascites. Visualized portions of the abdominal aorta normal. Impression: Fatty infiltration to the liver. Prior cholecystectomy. Signed by Beni Lewis MD 06/10/2017 09:24 A
[2017-06-10] MEDS: MORPHINE 2 MG/ML 1ML SYRINGE IV PRN ×3 (10:02→18:47)
--- NOTE | 2017-06-10 10:04 | IPNPDOC ---
Subjective Date Seen The patient was seen on 06/10/17. Subjective Chief Complaint/HPI The patient is a 37-year-old female admitted with a reason for visit of Elevated Lft's/Hematemesis. Events since last encounter continues to have epigastric and left upper quadrant pain radiating to the back , no vomiting overnight , tells me have been having chonic anemia so has been referred to a sewage screen operator by her PMD. Objective Physical Examination General Exam: Positive: Alert, Cooperative, No Acute Distress Eye Exam: Positive: PERRLA, Conjunctiva & lids normal, EOMI, Negative: Sclera icteric ENT Exam: Positive: Atraumatic, Mucous membr. moist/pink, Pharynx Normal Chest Exam: Positive: Clear to auscultation, Normal air movement Heart Exam: Positive: Rate Normal, Regular Rhythm, Normal S1, Normal S2, Negative: Murmurs, Rubs Telemetry: Positive: No significant arrhythmia Abdomen Exam: Positive: Normal bowel sounds, Soft, Negative: Tenderness, Hepatospenomegaly Extremity Exam: Positive: Normal pulses, Negative: Clubbing, Cyanosis, Edema Assessment /Plan Problems (1) Acute blood loss anemia Status: Acute Problem Text: received 2 units of PRBC. will continue to monitor hh. (2) Hematemesis Status: Acute Problem Text: on PPI infusion will be seen by foundry worker general will continue ivf for now. patient also being worked up for crohns dis for chronic abdominal pain. (3) Syncope Status: Acute Problem Text: Presyncope. due to blood loss and orthostatic hypotension blood pressure Improved after blood transfusion (4) Elevated LFTs Status: Acute Problem Text: Transaminitis US shows fatty liver , patient is s/p cholecystectomy possibly due to hypotension from blood loss. (5) History of gastric bypass Status: Chronic Problem Text: in 2013 had complications post procedure. (6) History of esophageal stricture Status: Chronic Problem Text: had dilatations in the past. (7) Pacemaker Status: Chronic Problem Text: due to severe symptomatic bradycardia and asystole during sleep. (8) Bipolar disorder Status: Chronic (9) Hypertension Status: Chronic Problem Text: Now hypotension , all home meds are on hold. (10) GERD (gastroesophageal reflux disease) Status: Chronic Problem Text: on ppi (11) Chronic anemia Status: Chronic Problem Text: will check iron studies , vit b 12, folate. (12) PTSD (post-traumatic stress disorder) Status: Chronic (13) Migraine headache Status: Chronic (14) Chronic pain disorder Status: Chronic (15) History of cervical cancer Status: Resolved Plan/VTE VTE Prophylaxis Ordered?: Yes VS, I&O, 24H, Fishbone Vital Signs/I&O Vital Signs Date Time Temp Pulse Resp B/P (MAP) Pulse Ox O2 Delivery O2 Flow Rate FiO2 06/10/17 09:00 97.1 61 16 110/58 (75) 96 Room Air I&O- Last 24 Hours up to 6 AM 06/10/17 06:00 Intake Total 1000 ml Balance 1000 ml Laboratory Data 24H LABS Laboratory Tests 2 06/09/17 19:06: White Blood Count 4.0, Red Blood Count 4.01, Hemoglobin 8.8L, Hematocrit 29.1L, Mean Corpuscular Volume 72.5L, Mean Corpuscular Hemoglobin 21.8L, Mean Corpuscular Hemoglobin Concent 30.1L, Red Cell Distribution Width 16.4H, Platelet Count 240, Neutrophils (%) (Auto) 62.6, Lymphocytes (%) (Auto) 28.2, Monocytes (%) (Auto) 5.3H, Eosinophils (%) (Auto) 2.0, Basophils (%) (Auto) 0.8 , Neutrophils # (Auto) 2.5, Lymphocytes # (Auto) 1.2L, Monocytes # (Auto) 0.2, Eosinophils # (Auto) 0.1, Basophils # (Auto) 0.0, Large Unclassified Cells % 1.2 , Large Unclassified Cells # 0.1, Prothrombin Time 13.8, Prothromb Time International Ratio 1.05, Activated Partial Thromboplast Time 26.2L, Anion Gap 6L, Glomerular Filtration Rate > 60.0, Blood Urea Nitrogen 9, Creatinine 0.89, Sodium Level 140, Potassium Level 4.0, Chloride Level 108H, Carbon Dioxide Level 26, Calcium Level 7.9L, Total Creatine Kinase 74, Magnesium Level 2.1, Aspartate Amino Transf (AST/SGOT) 633H, Alanine Aminotransferase (ALT/SGPT) 592H , Alkaline Phosphatase 148H, Total Bilirubin 0.5#, Direct Bilirubin 0.3H, Creatine Kinase MB 1.0, Creatine Kinase MB Relative Index 1.35, Troponin I < 0.02, Total Protein 6.6, Albumin 3.4, Albumin/Globulin Ratio 1.06, Lipase 48L, Thyroid Stimulating Hormone (TSH) 2.910, Free Thyroxine 0.74L, Human Chorionic Gonadotropin, Qual NEGATIVE 06/09/17 19:09: Bedside Glucose (Misc Panel) 114H 06/10/17 00:07: Total Creatine Kinase 70, Creatine Kinase MB 1.0, Creatine Kinase MB Relative Index 1.42, Troponin I < 0.02, Acetaminophen Level 5.5L, Ethyl Alcohol Level < 0.003 06/10/17 07:36: White Blood Count 4.2, Red Blood Count 4.20, Hemoglobin 9.9L, Hematocrit 30.6L, Mean Corpuscular Volume 72.9L, Mean Corpuscular Hemoglobin 23.6L, Mean Corpuscular Hemoglobin Concent 32.3, Red Cell Distribution Width 16.9H, Platelet Count 233, Neutrophils (%) (Auto) 58.1, Lymphocytes (%) (Auto) 31.6, Monocytes (%) (Auto) 5.0, Eosinophils (%) (Auto) 3.2H, Basophils (%) (Auto) 0.7 , Neutrophils # (Auto) 2.4, Lymphocytes # (Auto) 1.3L, Monocytes # (Auto) 0.2, Eosinophils # (Auto) 0.1, Basophils # (Auto) 0.0, Large Unclassified Cells % 1.5 , Large Unclassified Cells # 0.1, Anion Gap 9, Glomerular Filtration Rate > 60.0 , Blood Urea Nitrogen 7, Creatinine 0.78, Sodium Level 143, Potassium Level 4.1 , Chloride Level 113H, Carbon Dioxide Level 21, Calcium Level 7.8L, Total Creatine Kinase 81, Magnesium Level 2.0, Creatine Kinase MB 1.0, Creatine Kinase MB Relative Index 1.23, Troponin I < 0.02 CBC/BMP Laboratory Tests 06/09/17 19:06 Red Blood Count 4.01, Mean Corpuscular Volume 72.5 L, Mean Corpuscular Hemoglobin 21.8 L, Mean Corpuscular Hemoglobin Concent 30.1 L, Red Cell Distribution Width 16.4 H, Neutrophils (%) (Auto) 62.6, Lymphocytes (%) (Auto) 28.2, Monocytes (%) (Auto) 5.3 H, Eosinophils (%) (Auto) 2.0, Basophils (%) ( Auto) 0.8, Neutrophils # (Auto) 2.5, Lymphocytes # (Auto) 1.2 L, Monocytes # ( Auto) 0.2, Eosinophils # (Auto) 0.1, Basophils # (Auto) 0.0, Calcium Level 7.9 L , Total Creatine Kinase 74 06/10/17 07:36 Red Blood Count 4.20, Mean Corpuscular Volume 72.9 L, Mean Corpuscular Hemoglobin 23.6 L, Mean Corpuscular Hemoglobin Concent 32.3, Red Cell Distribution Width 16.9 H, Neutrophils (%) (Auto) 58.1, Lymphocytes (%) (Auto) 31.6, Monocytes (%) (Auto) 5.0, Eosinophils (%) (Auto) 3.2 H, Basophils (%) ( Auto) 0.7, Neutrophils # (Auto) 2.4, Lymphocytes # (Auto) 1.3 L, Monocytes # ( Auto) 0.2, Eosinophils # (Auto) 0.1, Basophils # (Auto) 0.0, Calcium Level 7.8 L YESENIA BOYD MD Jun 10, 2017 10:04
[2017-06-10 12:41] LABS: MEAN CORPUSCULAR HEMOGLOBIN 22.5 pg (27.0-33.0); MEAN CORPUSCULAR HGB CONC 30.1 g/dl (32.0-36.5); MEAN CORPUSCULAR VOLUME 74.9 fl (80.0-96.0); RED CELL DISTRIBUTION WIDTH 16.9 % (11.5-14.5); RETIC HEMOGLOBIN CONTENT CHr 24.7 PG (24-36); RETICULOCYTE % 2.2 % (0.5-1.5); WHITE BLOOD COUNT 4.1 K/mm3 (4.0-10.0)
[2017-06-10 12:59] LABS: ALBUMIN 3.3 GM/DL (3.2-5.2); ALBUMIN/GLOBULIN RATIO 1.03 (1.00-1.93); ALKALINE PHOSPHATASE 150 U/L (45-117); ALT/SGPT 650 U/L (12-78); AST/SGOT 653 U/L (15-37); BILIRUBIN,DIRECT 0.6 MG/DL (0.0-0.2); BILIRUBIN,TOTAL 0.7 MG/DL (0.2-1.0); FERRITIN 16 NG/ML (8-252); PERCENT SATURATION 8.1 % (13.2-45.0); TOTAL IRON BINDING CAPACITY 430 UG/DL (250-450); TOTAL PROTEIN 6.5 GM/DL (6.4-8.2)
[2017-06-10] MEDS: NS 1,000 ML IV SCH (14:37)
--- NOTE | 2017-06-10 14:55 | CR.PDOC ---
[facility] Consultation Consultation DATE OF CONSULTATION: Jun 10, 2017 at 13:46 REFERRING PROVIDER: Dr. Natalia Haines. Primary income tax analyst -- Dr. Earl. , Quality Control Tech - Dr. Newman ATTENDING PHYSICIAN: Dr. Natalia Haines REASON FOR CONSULTATION/CHIEF COMPLAINT: Abnormal LFTs and hematemesis. HISTORY OF PRESENT ILLNESS: 37-year-old female patient with gastri bypass ( for morbid obesity, in 2013 -- [facility]- En- Y done in [place]), h/o esophageal stricture and dilations done in [place] but last EGD in March [address] Earl -- no stricture), h/o bradycardia -- s/p pacemaker placement ( last checked few weeks ago at Dr. Newman clinic as per patient), hypertension, chronic pain, was admitted for complaints of syncope and hematemesis. GI consulted for the same. Patient reports recurrent episodes of syncope in past as well and said she had heart rates as low in 30 - 40's in ER in this visit. Also she had documented heart rate of 44 and low BP. Patient reports she had recurrent episodes of vomiting and last vomit was yesterday - noted progressively worsening quantity of blood in vomit. Serial Hb/ HCT in hospital are stable. OFF note: Patient was seen in ER for similar complaints in past and has h/o abnormal LFTs in past as well ( was admitted in some other hospital at that time ). and recent EGD - reviewed in provation - no ulcers. Review of Systems: GI: as stated above CVS: No chest pain, has low hert rate even on pacemaker. RS: No Shortness of breath, No Wheezing TIP LENGTH CHECKER: has multiple episodes of dizziness and syncope. no focal motor weakness. Hematology: No bruising, No gum bleeding, Musculoskeletal: No joint pain, ambulating well. Skin: No rash : No hematuria, No burning sensation of the urine ENT: No ear discharge/ pain, No dysphagia. Eyes: No photophobia. PAST MEDICAL HISTORY: As per HPI PAST SURGICAL HISTORY: Hysterectomy, cholecystectomy, gastric bypass, PPM, C- section 2 SOCIAL HISTORY: Currently denies tobacco, alcohol, illicit drug use. Has a history of tobacco abuse 1 pack per day 20 years. Also has a history of heroin , cocaine, PCP, Suboxone off the street abuse. Lives with . FAMILY HISTORY: NO GI cancers. ALLERGIES:reviwed. Sea food allergy. . HOME MEDICATIONS: reviwed. Not on blood thinners.. Prior Endoscopies: --- EGD - Multiple in past - last in March 2017 - by Dr. Earl - noted --- no ulcers. --- Colonoscopy -- in 2010 - by Dr. Earl - normal. except internal hemorrhoids. Exam: Vitals: reviewed -- note low Heart rate at one point -- 44. General: Alert and oriented x 3, not in distress HEENT: Mild pallor, no icterus. Normal oropharynx, NO cervical lymph nodes. Chest: symmetric with bilateral clear air entry, CVS: S1, S2 heard, normal, no murmurs . Abdomen: non-distended, Obese, soft, mild left side tenderness but no rigidity or guarding., no palpable masses, normal bowel sounds heard. Rectal exam: Deferred at this time. Extremities: no pedal edema, pulses palpable. TIP LENGTH CHECKER: no focal motor or sensory deficits. Moves all extremities Skin: no rash. LABORATORY DATA: reviwewed. Stable Hb/HCT. IMAGING: CT Abd/pelvis 06/09/17 IMPRESSION: 1. Status post gastric bypass without evidence of complication. 2. Mild hepatosplenomegaly. CXR 06/09/17 Impression: No acute cardiopulmonary process appreciated. IMPRESSION: - History of hematemesis after recurrent episodes of vomiting and nausea --- likely esophagitis vs MWT ( recent prior EGD - in March 2017 - no Ulcers or high risk lesions). - Abnormal LFTs - acute worsening and h/o hypotension -- Likely ischemic hepatopathy. Also need to r/o viral and autoimmune hepatitis ( less likely). - Obesity BMI 44 ( h/o bypass surgery) RECOMMENDATION: - Will obtain GGT ( added to prior labs), and Viral and autoimmune hepatitis panel. - Start on clear liquid diet for now. - Obtain cardiology evaluation for pacemaker eval and work up for hypotension ( as unlikely related to Hematemesis as Hb/HCT are stable and above 10/ 30). - Patient educated about the need for repeat EGD to further evalaute the etiology of hematemesis. The procedure, indications, risks (bleeding, perforation, infection, hypotension, respiratory depression, allergy, need for endotracheal intubation, surgery, colostomy, cardiac arrest, even ), benefits, limitations (e.g., missing a lesion), and all other alternatives ( including no intervention) were explained to the patient who understood and agreed for the procedure. Informed consent signed and placed in chart. -- TO schedule the procedure after cardiology clearance -- either on sunday or sunday. - Avoid hepatotoxic medications. - Obtain Urine toxicology as well. - Plan of care discussed with patient and primary team. . Allergies Coded Allergies: Bee Venom (Verified Allergy, Severe, Anaphylaxis , 04/19/17) SEAFOOD (Verified Allergy, Severe, Anaphylaxis , 04/19/17) Shellfish Allergy (Verified Allergy, Severe, Anaphylaxis , 04/19/17) Sertraline (Unverified Allergy, Intermediate, RASH, 04/19/17) TAPE (Verified Adverse Reaction, Mild, Burning/Itching of the skin. , 04/19) Home Medications Scheduled Amitriptyline HCl (Amitriptyline HCl) 25 Mg Tab, 25 MG PO QHS, (Reported) Amitriptyline HCl (Amitriptyline HCl) 100 Mg Tab, 100 MG PO QHS, (Reported) Cyanocobalamin (Cyanocobalamin) 1,000 Mcg/1 Ml Inj, 1,000 MCG IM QWEEK, ( Reported) Fenofibrate (Fenofibrate) 48 Mg Tab, 48 MG PO DAILY, (Reported) Vitamin D (Drisdol) 50,000 Unit Cap, 50,000 UNIT PO QWEEK, (Reported) Zonisamide (Zonisamide) 100 Mg Cap, 200 MG PO QHS, (Reported) Scheduled PRN (Epipen 2-Arsenio) 0.3 Mg/0.3 Ml Inj, 0.3 MG IM ASDIRECTED PRN for ANAPHYLAXIS, ( Reported) Amphetamine/Dextroamphetamine (Amphetamine/Dextroampheta 20 mg) 1 Cap Cap, 1 CAP PO DAILY PRN for ADHD, (Reported) Amphetamine/Dextroamphetamine (Adderall 5 mg) 1 Tab Tab, 10 MG PO DAILY PRN for ADHD, (Reported) TAKES AT NOON Clonazepam (Clonazepam) 0.5 Mg Tab, 0.5 MG PO TID PRN for ANXIETY, (Reported) Ondansetron HCl (Ondansetron HCl) 4 Mg Tab, 4 MG PO Q4H PRN for NAUSEA, ( Reported) EDUARDO PALMER MD Jun 10, 2017 14:55
--- NOTE | 2017-06-10 18:23 | ECGEPIP ---
Stationary ECG Study [facility] - ED Test Date: 2017-06-09 Pat Name: ADRI KESSLER Department: Room: [place] [address] Gender: F Differential Repairer: diana : 1980 Requested By: SUSAN Simons Order Number: [id number] Reading MD: Lilian Cuellar Measurements Intervals [place] Rate: 74 P: 32 ID: [id number] QRS: -5 QRSD: 94 T: 19 QT: 386 QTc: 430 Interpretive Statements SINUS RHYTHM LOW QRS VOLTAGE IN PRECORDIAL LEADS POSSIBLE RIGHT VENTRICULAR CONDUCTION DELAY Electronically Signed On 06-10-2017 18:22:49 EDT by Lilian Cuellar
[2017-06-11 00:20] VITALS: BP 110/66
[2017-06-11] MEDS: NS 1,000 ML IV SCH (00:31)
[2017-06-11] MEDS: PANTOPRAZOLE SODIUM 40 MG in D5W MINI-BAG PLUS 50 ML IV SCH ×5 (00:31→20:42)
[2017-06-11 04:33] VITALS: BP 131/63
[2017-06-11] MEDS: ONDANSETRON 4MG/2ML VIAL (J2405) IV PRN ×2 (04:54→14:14)
[2017-06-11] MEDS: MORPHINE 2 MG/ML 1ML SYRINGE IV PRN ×5 (04:55→23:21)
[2017-06-11 05:10] LABS: EOS # 0.2 K/mm3 (0.0-0.50); EOS % 3.6 % (0.0-3.0); LARGE UNSTAINED CELL % 0.8 % (0.0-4.0); LYMPH # 1.4 K/mm3 (1.5-4.5); LYMPH % 28.3 % (24.0-44.0); MEAN CORPUSCULAR HEMOGLOBIN 22.2 pg (27.0-33.0); MEAN CORPUSCULAR HGB CONC 29.4 g/dl (32.0-36.5); MEAN CORPUSCULAR VOLUME 75.5 fl (80.0-96.0); MONO # 0.3 K/mm3 (0.0-0.8); MONO % 5.8 % (0.0-5.0); NEUTROPHILS # 2.8 K/mm3 (1.8-7.7); NEUTROPHILS % 60.4 % (36.0-66.0); PLATELET COUNT, AUTOMATED 255 k/mm3 (150-450); WHITE BLOOD COUNT 4.6 K/mm3 (4.0-10.0)
[2017-06-11 05:30] LABS: ANION GAP 4 MEQ/L (8-16); BLOOD UREA NITROGEN 5 MG/DL (7-18); CARBON DIOXIDE LEVEL 28 MEQ/L (21-32); CHLORIDE LEVEL 109 MEQ/L (98-107); CREATININE FOR GFR 1.07 MG/DL (0.55-1.02); GLOMERULAR FILTRATION RATE > 60.0 (>60); GLUCOSE, FASTING 97 MG/DL (70-105); MAGNESIUM LEVEL 2.1 MG/DL (1.8-2.4); POTASSIUM SERUM 3.8 MEQ/L (3.5-5.1); SODIUM LEVEL 141 MEQ/L (136-145)
[2017-06-11 07:45] LABS: ALBUMIN 3.3 GM/DL (3.2-5.2); ALKALINE PHOSPHATASE 157 U/L (45-117); ALT/SGPT 526 U/L (12-78); AST/SGOT 249 U/L (15-37); BILIRUBIN,DIRECT 0.2 MG/DL (0.0-0.2); BILIRUBIN,TOTAL 0.5 MG/DL (0.2-1.0); TOTAL PROTEIN 6.6 GM/DL (6.4-8.2)
[2017-06-11 08:00] VITALS: BP 114/55
[2017-06-11] MEDS: D5W/0.9% SODIUM CHLORIDE 1,000 ML IV SCH ×2 (08:00→23:22)
[2017-06-11] MEDS: LIDOCAINE 5% (LIDODERM) PATCH TD SCH (09:00)
--- NOTE | 2017-06-11 09:37 | IPNPDOC ---
Subjective Date Seen The patient was seen on 06/11/17. Subjective Chief Complaint/HPI The patient is a 37-year-old female admitted with a reason for visit of Elevated Lft's/Hematemesis. Events since last encounter continue to complain of left upper quadrant pain with radiation to the sides and back , has been tolerating clear liquids. no melena , did have some emesis again last night. Objective Physical Examination General Exam: Positive: Alert, Cooperative, No Acute Distress Eye Exam: Positive: PERRLA, Conjunctiva & lids normal, EOMI, Negative: Sclera icteric ENT Exam: Positive: Atraumatic, Mucous membr. moist/pink, Pharynx Normal Chest Exam: Positive: Clear to auscultation, Normal air movement Heart Exam: Positive: Rate Normal, Regular Rhythm, Normal S1, Normal S2, Negative: Murmurs, Rubs Telemetry: Positive: No significant arrhythmia Abdomen Exam: Positive: Normal bowel sounds, Soft, Negative: Tenderness, Hepatospenomegaly Extremity Exam: Positive: Normal pulses, Negative: Clubbing, Cyanosis, Edema Assessment /Plan Problems (1) Acute blood loss anemia Status: Acute Problem Text: received 2 units of PRBC. will continue to monitor hh. (2) Hematemesis Status: Acute Problem Text: on PPI infusion will be seen by market developer will continue ivf for now. patient also being worked up for crohns dis for chronic abdominal pain. (3) Syncope Status: Acute Problem Text: Presyncope. due to blood loss and orthostatic hypotension blood pressure Improved after blood transfusion has pacemaker , on telemetry heart rate is always 60 or above though the monitor is reading rates in 40s and 30s (4) Elevated LFTs Status: Acute Problem Text: Transaminitis US shows fatty liver , patient is s/p cholecystectomy possibly due to hypotension from blood loss. (5) History of gastric bypass Status: Chronic Problem Text: in 2014 had complications post procedure. (6) History of esophageal stricture Status: Chronic Problem Text: had dilatations in the past. (7) Pacemaker Status: Chronic Problem Text: due to severe symptomatic bradycardia and asystole during sleep. On telemetry heart rate is always 60 or above though the monitor is reading rates in 40s and 30s. will ask Dr mirza to see. (8) Bipolar disorder Status: Chronic (9) Hypertension Status: Chronic Problem Text: Now hypotension , all home meds are on hold. (10) GERD (gastroesophageal reflux disease) Status: Chronic Problem Text: on ppi (11) Chronic anemia Status: Chronic Problem Text: has iron deficiency , vit b 12, folate pending. (12) PTSD (post-traumatic stress disorder) Status: Chronic (13) Migraine headache Status: Chronic (14) Chronic pain disorder Status: Chronic (15) History of cervical cancer Status: Resolved Plan/VTE VTE Prophylaxis Ordered?: Yes VS, I&O, 24H, Fishbone Vital Signs/I&O Vital Signs Date Time Temp Pulse Resp B/P (MAP) Pulse Ox O2 Delivery O2 Flow Rate FiO2 06/11/17 08:40 18 96 Room Air 06/11/17 08:00 98.0 70 114/55 (74) I&O- Last 24 Hours up to 6 AM 06/11/17 06:00 Intake Total 3360 ml Output Total 2075 ml Balance 1285 ml Laboratory Data 24H LABS Laboratory Tests 2 06/10/17 12:20: Absolute Reticulocyte Count 98H, Percent Reticulocyte Count 2.20H, Reticulocyte Hgb Content (CHr) 24.7 06/10/17 15:34: Lactate Dehydrogenase 403H, Total Creatine Kinase 80, Creatine Kinase MB 1.0, Creatine Kinase MB Relative Index 1.25, Troponin I < 0.02 06/11/17 04:42: White Blood Count 4.6, Red Blood Count 4.75, Hemoglobin 10.5L, Hematocrit 35.9L , Mean Corpuscular Volume 75.5L, Mean Corpuscular Hemoglobin 22.2L, Mean Corpuscular Hemoglobin Concent 29.4L, Red Cell Distribution Width 17.0H, Platelet Count 255, Neutrophils (%) (Auto) 60.4, Lymphocytes (%) (Auto) 28.3, Monocytes (%) (Auto) 5.8H, Eosinophils (%) (Auto) 3.6H, Basophils (%) (Auto) 1.0 , Neutrophils # (Auto) 2.8, Lymphocytes # (Auto) 1.4L, Monocytes # (Auto) 0.3, Eosinophils # (Auto) 0.2, Basophils # (Auto) 0.0, Large Unclassified Cells % 0.8 , Large Unclassified Cells # 0.0, Anion Gap 4L, Glomerular Filtration Rate > 60.0, Blood Urea Nitrogen 5L, Creatinine 1.07H, Sodium Level 141, Potassium Level 3.8, Chloride Level 109H, Carbon Dioxide Level 28, Calcium Level 8.0L, Magnesium Level 2.1, Aspartate Amino Transf (AST/SGOT) 249H, Alanine Aminotransferase (ALT/SGPT) 526H, Alkaline Phosphatase 157H, Total Bilirubin 0.5 , Direct Bilirubin 0.2, Total Protein 6.6, Albumin 3.3, Albumin/Globulin Ratio 1.00 CBC/BMP Laboratory Tests 06/10/17 12:20 Red Blood Count 4.46, Mean Corpuscular Volume 74.9 L, Mean Corpuscular Hemoglobin 22.5 L, Mean Corpuscular Hemoglobin Concent 30.1 L, Red Cell Distribution Width 16.9 H 06/10/17 18:05 06/11/17 04:42 Red Blood Count 4.75, Mean Corpuscular Volume 75.5 L, Mean Corpuscular Hemoglobin 22.2 L, Mean Corpuscular Hemoglobin Concent 29.4 L, Red Cell Distribution Width 17.0 H, Neutrophils (%) (Auto) 60.4, Lymphocytes (%) (Auto) 28.3, Monocytes (%) (Auto) 5.8 H, Eosinophils (%) (Auto) 3.6 H, Basophils (%) ( Auto) 1.0, Neutrophils # (Auto) 2.8, Lymphocytes # (Auto) 1.4 L, Monocytes # ( Auto) 0.3, Eosinophils # (Auto) 0.2, Basophils # (Auto) 0.0, Calcium Level 8.0 L YESENIA BOYD MD Jun 11, 2017 09:37
[2017-06-11 10:16] LABS: FOLATE 14.3 NG/ML (>5.4); VITAMIN B12 LEVEL 1554 PG/ML (247-911)
[2017-06-11 11:06] LABS: HEPATITIS B SURFACE ANTIBODY NEGATIVE (POSITIVE)
[2017-06-11 12:00] VITALS: BP 130/85
[2017-06-11] MEDS ORDERED: ACETAMINOPHEN 650 MG SUPP PR PRN (12:00)
[2017-06-11 16:00] VITALS: BP 97/54
--- NOTE | 2017-06-11 20:01 | CR ---
DATE OF CONSULTATION: 06/11/2017 INDICATION: Syncope. HISTORY OF PRESENT ILLNESS: Mrs. Watt is previously unknown to me but she follows with my partner Dr. Newman. She was admitted to [facility] yesterday after she suffered syncopal event. Earlier that day she was seen in the ER for hematemesis but with stability she was discharged home. She tells me that she was again nauseated and vomited blood in her bathroom, which is the last thing she remembers. Then she remembers waking up on the floor and hitting her head. She was brought to hospital, she was hemodynamically stable and the monitoring in ICU so far has not revealed any arrhythmias. Because I could not find proper interrogating machine for her pacemaker, I brought a [employer] outside medical sales representative and he evaluated her pacemaker. It reveals normal function and no evidence for arrhythmias. When I saw her this morning in the ICU she felt comfortable and did not have any specific complaints. She has been vomiting blood for about 24 hours. Apparently this is not the first time this happened. She had previous episodes where the evaluation was relatively unremarkable. PAST MEDICAL HISTORY: 1. She has history of recurrent syncopal events in the past which led to placement of a dual chamber [employer] pacemaker in October 2015 after pauses were identified on event recorder. 2. History of chronic abdominal pain believed to be secondary to adhesions after numerous previous abdominal and MEAT BUTCHER surgeries. 3. Migraines. 4. GERD. 5. Hyperlipidemia. 6. Arthritis. 7. History of obesity with history of bariatric surgery. 8. Chronic diastolic congestive heart failure. Last echocardiogram in our record was from October 2015, that revealed preserved left ventricular systolic function and no valvular abnormalities. 9. History of sick sinus syndrome status post pacemaker implant as above. SURGICAL HISTORY: Positive for hysterectomy, right salpingo-oophorectomy, appendectomy, bariatric surgery in May 2014, cholecystectomy, and history of esophageal dilatation. SOCIAL HISTORY: Patient is . She is an ex-smoker. FAMILY HISTORY: Negative for coronary artery disease in early age in first-degree relatives. OUTPATIENT MEDICATIONS: - verapamil 40 a day - zonisamide twice a day - Adderall 20 one in the morning and half at 12 noon - aspirin 325 - amitriptyline - clonazepam - EpiPen as needed - lithium 300 two tablets in the afternoon - metoclopramide 5 mg as needed - multivitamin - Seroquel - vitamin D ALLERGIES: She reports allergies to NONSTEROIDAL ANTI-INFLAMMATORY DRUGS (NSAIDs), bee stings and shellfish. REVIEW OF SYSTEMS: She denies any recent fever, chills. She has had nausea and vomiting for about a day now, but this has been a more chronic issue. She previously lost a considerable amount of weight after bariatric surgery but lately gained approximately 40 pounds. She denies any genitourinary symptoms. She denies chest pain per se other than during the episodes of vomiting. She does have exertional dyspnea. She has had a prior episode of syncope but none recently since the pacemaker implantation. PHYSICAL EXAMINATION: Mrs. Watt is a middle-aged woman who appears older than her calendar age. She is obese. Blood pressure 114/55, heart rate in 70s. She is mostly in sinus rhythm with normal AV conduction and during nighttime had brief episode of ventricular pacing when her heart rate slowed down. Saturation 96% on room air. Fluid balance was documented about 3 liters positive yesterday. Weight is at 103 kg. She is alert and oriented and appropriate. The JVP is difficult to estimate due to low body habitus but it does not appear elevated. Lungs are clear to auscultation with good air movement. Heart exam regular with no gallop, rub or murmur is appreciated. There is pacemaker in left subclavian pocket. Abdomen is obese but soft and nontender. There is trace peripheral edema. Neurologically she is intact. LABORATORY DATA: Her CBC this morning revealed hemoglobin 10.5, hematocrit 35, platelet count 255,000. Basic metabolic panel was normal but for glucose 107. She has markedly elevated liver function tests with AST 630, ALT 590. CK and CK-MB have been negative. Troponin is negative. Albumin is 3.4. TSH is 2.9. hCG is negative. Toxicology is mostly pending and same for immunology. She has several ECGs all revealing essentially normal tracing. IMAGING STUDIES: The CT of the abdomen revealed finding consistent with prior bypass and hepatosplenomegaly. Chest x-ray did not reveal any cardiomegaly or pleural effusions. The abdominal ultrasound revealed fatty liver and history of cholecystectomy. Head CT was unremarkable. ASSESSMENT/PLAN: Mrs. Watt is a 37-year-old female who presents with syncope that sounds typical neurocardiogenic by history. She has preserved LV systolic function, normal ECG, normal physical exam and her pacemaker function is normal as well. I do not have any specific recommendations for further management. It seems to me that she takes way too many medications with effect on her SPRAYER OPERATOR and I think it would be advisable to reduce them as much as possible. I do not have any additions to be made from a cardiac perspective. I instructed the [employer] outside medical sales representative to activate mode on her pacemaker that will make vasovagal mechanism less likely even though it certainly is not guaranteed to prevent subsequent episodes. If there is a plan for EGD tomorrow she can proceed without specific precautions. There is no need to make any pacemaker adjustments. MTDD
[2017-06-11] MEDS: **NOTE PATIENT COMMENT** MISC XX SCH (20:42)
[2017-06-11 23:24] VITALS: BP 114/63
[2017-06-12] MEDS: PANTOPRAZOLE SODIUM 40 MG in D5W MINI-BAG PLUS 50 ML IV SCH ×5 (00:45→21:37)
[2017-06-12] MEDS ORDERED: diphenhydrAMINE INJ 50MG/ML VIAL (J1200) IM ONE (01:45)
[2017-06-12] MEDS ORDERED: diphenhydrAMINE 25 MG CAP PO ONE (02:00)
[2017-06-12 03:20] VITALS: BP 119/59
[2017-06-12] MEDS: MORPHINE 2 MG/ML 1ML SYRINGE IV PRN ×4 (04:20→21:37)
[2017-06-12 05:10] LABS: BASO % 0.7 % (0.0-1.0); EOS # 0.2 K/mm3 (0.0-0.50); EOS % 2.8 % (0.0-3.0); LARGE UNSTAINED CELL # 0.1 K/mm3 (0.0-0.4); LARGE UNSTAINED CELL % 1.2 % (0.0-4.0); LYMPH # 1.6 K/mm3 (1.5-4.5); LYMPH % 29.9 % (24.0-44.0); MEAN CORPUSCULAR HEMOGLOBIN 23.3 pg (27.0-33.0); MEAN CORPUSCULAR HGB CONC 31.5 g/dl (32.0-36.5); MEAN CORPUSCULAR VOLUME 74.1 fl (80.0-96.0); MONO # 0.3 K/mm3 (0.0-0.8); MONO % 5.2 % (0.0-5.0); NEUTROPHILS # 3.3 K/mm3 (1.8-7.7); NEUTROPHILS % 60.2 % (36.0-66.0); PLATELET COUNT, AUTOMATED 268 k/mm3 (150-450); RED CELL DISTRIBUTION WIDTH 16.9 % (11.5-14.5); WHITE BLOOD COUNT 5.4 K/mm3 (4.0-10.0)
[2017-06-12 05:21] LABS: ANION GAP 7 MEQ/L (8-16); BLOOD UREA NITROGEN 3 MG/DL (7-18); CARBON DIOXIDE LEVEL 25 MEQ/L (21-32); CHLORIDE LEVEL 111 MEQ/L (98-107); CREATININE FOR GFR 0.89 MG/DL (0.55-1.02); GLOMERULAR FILTRATION RATE > 60.0 (>60); GLUCOSE, FASTING 107 MG/DL (70-105); POTASSIUM SERUM 3.7 MEQ/L (3.5-5.1); SODIUM LEVEL 143 MEQ/L (136-145)
[2017-06-12] MEDS: LIDOCAINE 5% (LIDODERM) PATCH TD SCH (07:47)
[2017-06-12 08:00] VITALS: BP 122/71
[2017-06-12] MEDS: ONDANSETRON 4MG/2ML VIAL (J2405) IV PRN (08:45)
[2017-06-12] MEDS ORDERED: MORPHINE 2 MG/ML 1ML SYRINGE IV ONE (11:45)
[2017-06-12 12:00] VITALS: BP 136/99
[2017-06-12] MEDS ORDERED: LIDOCAINE 2% INJ 100 MG/5 ML SYRINGE As Ordered ONE (14:27)
[2017-06-12] MEDS ORDERED: PROPOFOL 200 MG/20 ML VIAL As Ordered ONE (14:27)
--- NOTE | 2017-06-12 14:54 | ROOR ---
Patient Name: Suyapa Shukri Procedure Date: 06/12/2017 2:27 PM Date of : 1980 Age: 37 Room: [facility] Gender: Female Note Status: Finalized Procedure: Upper GI endoscopy Indications: Hematemesis Providers: Yariel Bernabe MD Referring MD: COLLETTE MURDOCK MD Requesting Provider: Medicines: Monitored Anesthesia Care Complications: No immediate complications. Procedure: Pre-Anesthesia Assessment: - Prior to the procedure, a History and Physical was performed, and patient medications and allergies were reviewed. The patient is competent. The risks and benefits of the procedure and the sedation options and risks were discussed with the patient. All questions were answered and informed consent was obtained. Patient identification and proposed procedure were verified by the physician, the nurse and the wax pattern assembler in the procedure room. Mental Status Examination: alert and oriented. Airway Examination: normal oropharyngeal airway and neck mobility. Respiratory Examination: clear to auscultation. CV Examination: normal. Prophylactic Antibiotics: The patient does not require prophylactic antibiotics. Prior Anticoagulants: The patient has taken no previous anticoagulant or antiplatelet agents. ASA Grade Assessment: II - A patient with mild systemic disease. After reviewing the risks and benefits, the patient was deemed in satisfactory condition to undergo the procedure. The anesthesia plan was to use monitored anesthesia care (MAC). Immediately prior to administration of medications, the patient was re-assessed for adequacy to receive sedatives. The heart rate, respiratory rate, oxygen saturations, blood pressure, adequacy of pulmonary ventilation, and response to care were monitored throughout the procedure. The physical status of the patient was re-assessed after the procedure. The Endoscope was introduced through the mouth, and advanced to the second part of duodenum. The upper GI endoscopy was accomplished without difficulty. The patient tolerated the procedure well. Findings: The examined esophagus was normal. 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 The gastrojejunal anastomosis was characterized by healthy appearing mucosa. This was traversed. The hxtgp-ic-kuwmvtb limb was characterized by healthy appearing mucosa. The ttevlslf-lq-lbbdubg limb was examined 30 cm from anastomosis and was characterized by healthy appearing mucosa. Localized moderately erythematous mucosa with surgical suture is noted in the gastric fundus without any active bleeding. The examined jejunum was normal. Impression: - Normal esophagus. - Gasper-en-Y gastrojejunostomy with gastrojejunal anastomosis characterized by healthy appearing mucosa. - Localized moderately erythematous mucosa with surgical suture is noted in the gastric fundus without any active bleeding. - Normal examined jejunum. - No specimens collected. Recommendation: - [facility] - Patient has a contact number available for emergencies. The signs and symptoms of potential delayed complications were discussed with the patient. Return to normal activities tomorrow. Written discharge instructions were provided to the patient. - Advance diet as tolerated. - Continue present medications. - Use a proton pump inhibitor PO daily for 8 weeks. - Return to GI clinic in 2 weeks. Patient follows with Dr. Earl as out patient. Please refer there upon discharge. - Perform a colonoscopy at appointment to be scheduled as outpatient for Iron deficiency anemia. - To be taken care of at patients's private Gi clinic ( Dr. Earl).. - Return to primary care physician. Yarile Bernabe MD Yariel Bernabe MD 06/12/2017 2:54:01 PM This report has been signed electronically. Number of Addenda: 0 Note Initiated On: 06/12/2017 2:27 PM Estimated Blood Loss: Estimated blood loss: none.
--- NOTE | 2017-06-12 14:56 | IPNPDOC ---
Date Seen The patient was seen on 06/12/17. Progress Note Post EGD procedure GI follow up note Patient tolerated procedure well. No immediate complications. EGD findings: - Normal esophagus. - Gasper-en-Y gastrojejunostomy with gastrojejunal anastomosis characterized by healthy appearing mucosa. - Localized moderately erythematous mucosa with surgical suture is noted in the gastric fundus ( likely from gastric bypass surgery) without any active bleeding. - Normal examined jejunum. - No specimens collected. Recommendations: [facility]. - Patient has a contact number available for emergencies. The signs and symptoms of potential delayed complications were discussed with the patient. Return to normal activities tomorrow. Written discharge instructions were provided to the patient. - Advance diet as tolerated. - Continue present medications. - Use a proton pump inhibitor PO daily for 8 weeks. - Return to GI clinic in 2 weeks. Patient follows with Dr. Earl as out patient. please refer there upon discharge. - Perform a colonoscopy at appointment to be scheduled as outpatient for Iron deficiency anemia. - To be taken care of at patients's private Gi clinic ( Dr. Earl). - Return to primary care physician. Plan of care discussed with patient and primary team. EDUARDO PALMER MD Jun 12, 2017 14:56
[2017-06-12 16:00] VITALS: BP 132/91
[2017-06-12] MEDS: D5W/0.9% SODIUM CHLORIDE 1,000 ML IV SCH (16:35)
--- NOTE | 2017-06-12 17:32 | IPNPDOC ---
Date Seen The patient was seen on 06/12/17. Progress Note Hospitalist Progress Note Subjective: Patient continues to report stabbing abdominal pain that goes all the way through her; she also reports that as recently as last night she is vomiting up blood Objective: Physical Exam: Vitals: Vital Sign - Last 24 Hours 06/11/17 06/11/17 06/11/17 06/11/17 19:26 19:26 19:26 23:21 Temp 97.8 Pulse 67 Resp 19 20 B/P (MAP) 149/88 Pulse Ox 98 O2 Delivery Room Air Room Air Room Air 06/11/17 06/11/17 06/12/17 06/12/17 23:24 23:34 03:20 03:38 Temp 97.6 97.2 Pulse 74 60 Resp 17 19 B/P (MAP) 114/63 (80) 119/59 (79) Pulse Ox 93 96 O2 Delivery Room Air Room Air Room Air Room Air 06/12/17 06/12/17 06/12/17 06/12/17 04:20 08:00 08:00 08:46 Temp 97.1 Pulse 70 Resp 20 14 14 B/P (MAP) 122/71 (88) Pulse Ox 99 99 O2 Delivery Room Air Room Air Room Air Room Air 06/12/17 06/12/17 06/12/17 06/12/17 09:06 11:29 11:39 12:00 Temp 97.6 Pulse 80 Resp 17 18 18 B/P (MAP) 136/99 (111) Pulse Ox 93 95 96 96 O2 Delivery Room Air Room Air Room Air 06/12/17 06/12/17 06/12/17 06/12/17 14:47 14:59 15:30 16:00 Temp 97.2 98.1 Pulse 64 64 63 Resp 16 16 17 B/P (MAP) 118/73 (88) 135/86 (102) 132/91 (105) Pulse Ox 91 93 98 O2 Delivery Room Air Room Air 06/12/17 06/12/17 16:37 16:47 Resp 118 16 O2 Delivery Room Air Room Air General: Awake, alert, no acute distress HEENT: Normocephalic, atraumatic, extraocular movements intact CV: Regular rate and rhythm Lungs: Decreased breath sounds at the right base, otherwise clear to auscultation Abd: Soft, diffuse tenderness to palpation Extremities: No edema Neuro: Alert and oriented 3, normal speech Psych: And normal mood and affect Labs and Imaging: Laboratory Tests 06/12/17 04:46 Red Blood Count 4.68, Mean Corpuscular Volume 74.1 L, Mean Corpuscular Hemoglobin 23.3 L, Mean Corpuscular Hemoglobin Concent 31.5 L, Red Cell Distribution Width 16.9 H, Neutrophils (%) (Auto) 60.2, Lymphocytes (%) (Auto) 29.9, Monocytes (%) (Auto) 5.2 H, Eosinophils (%) (Auto) 2.8, Basophils (%) ( Auto) 0.7, Neutrophils # (Auto) 3.3, Lymphocytes # (Auto) 1.6, Monocytes # (Auto ) 0.3, Eosinophils # (Auto) 0.2, Basophils # (Auto) 0.0, Calcium Level 8.0 L Assessment and Plan: 37-year-old female with history of gastric bypass, esophageal stricture status post dilation, bipolar disorder, CHF, hypertension, GERD, substance abuse, chronic pain, chronic migraines, history of heart block status post pacemaker placement who presented to the emergency department with hematemesis, as well as an episode of syncope. She has been admitted with concern for upper GI bleed. 1. Upper GI bleed: The patient is currently on a PPI drip, and she is going for EGD with Dr. Bernabe today. Continue nothing by mouth with IV fluids. 2. Anemia: This appears to be chronic in nature. In the last 10 months, the patient's hemoglobin has been in the 9-10 range. Upon arrival, the patient's hemoglobin was 8.8, and she did receive 2 units of PRBCs. Since then, her hemoglobin has been stable in the tens. Continue to monitor. She will need an outpatient colonoscopy for further workup of her iron deficiency anemia. At discharge, we'll start her on ferrous sulfate. 3. Transaminitis: LFTs were significantly elevated upon admission, but CT of the abdomen and pelvis shows only mild hepatosplenomegaly, and right upper quadrant ultrasound shows fatty infiltrate of the liver status post cholecystectomy. There has been a slight downward trend, but they're still elevated. The patient was quite hypotensive upon admission, and it is thought that there may have been a component of ischemic liver. We will continue to trend. Hepatitis panel is negative. 4. History of heart block status post pacemaker placement: The patient's pacemaker was interrogated by Dr. Marks on this admission, and it was found to be functioning appropriately. 5. Bipolar disorder: Holding home Elavil, Adderall, Klonopin while nothing by mouth. 6. Hypertension: Patient has been off of her medications since her gastric bypass. Continue to monitor blood pressure. Patient had some episodes of transient hypotension upon admission; these have now resolved. 7. CHF: Appears compensated at this time. Will order echo as there is not one on file. 8. Syncope: The patient has been seen by Dr. Marks of cardiology while inpatient. At this time, he feels that her syncope is neurocardiogenic in nature. He recommends reducing medications with LINE TESTER effects, and he also asked the [employer] visitor services representative to activate the mode on her pacemaker that'll make the vasovagal mechanism less likely. Pacemaker has been interrogated and is functioning appropriately. She will need continued follow-up with her primary head orthopedic team physician Dr. Newman. Will order echo. DVT prophylaxis: SCDs Dispo: pending GI workup VS, I&O, 24H, Fishbone Vital Signs/I&O Vital Signs Date Time Temp Pulse Resp B/P (MAP) Pulse Ox O2 Delivery O2 Flow Rate FiO2 06/12/17 16:47 16 Room Air 06/12/17 16:00 98.1 63 132/91 (105) 98 I&O- Last 24 Hours up to 6 AM 06/12/17 05:59 Intake Total 4410 ml Output Total 2650 ml Balance 1760 ml Laboratory Data 24H LABS Laboratory Tests 2 06/12/17 04:46: White Blood Count 5.4, Red Blood Count 4.68, Hemoglobin 10.9L, Hematocrit 34.7L , Mean Corpuscular Volume 74.1L, Mean Corpuscular Hemoglobin 23.3L, Mean Corpuscular Hemoglobin Concent 31.5L, Red Cell Distribution Width 16.9H, Platelet Count 268, Neutrophils (%) (Auto) 60.2, Lymphocytes (%) (Auto) 29.9, Monocytes (%) (Auto) 5.2H, Eosinophils (%) (Auto) 2.8, Basophils (%) (Auto) 0.7 , Neutrophils # (Auto) 3.3, Lymphocytes # (Auto) 1.6, Monocytes # (Auto) 0.3, Eosinophils # (Auto) 0.2, Basophils # (Auto) 0.0, Large Unclassified Cells % 1.2 , Large Unclassified Cells # 0.1, Anion Gap 7L, Glomerular Filtration Rate > 60.0, Blood Urea Nitrogen 3L, Creatinine 0.89, Sodium Level 143, Potassium Level 3.7, Chloride Level 111H, Carbon Dioxide Level 25, Calcium Level 8.0L, Magnesium Level 2.0 CBC/BMP Laboratory Tests 06/12/17 04:46 Red Blood Count 4.68, Mean Corpuscular Volume 74.1 L, Mean Corpuscular Hemoglobin 23.3 L, Mean Corpuscular Hemoglobin Concent 31.5 L, Red Cell Distribution Width 16.9 H, Neutrophils (%) (Auto) 60.2, Lymphocytes (%) (Auto) 29.9, Monocytes (%) (Auto) 5.2 H, Eosinophils (%) (Auto) 2.8, Basophils (%) ( Auto) 0.7, Neutrophils # (Auto) 3.3, Lymphocytes # (Auto) 1.6, Monocytes # (Auto ) 0.3, Eosinophils # (Auto) 0.2, Basophils # (Auto) 0.0, Calcium Level 8.0 L LIZBETH GAMEZ Jun 12, 2017 17:32
[2017-06-12 20:00] VITALS: BP 131/75
[2017-06-12] MEDS: AMITRIPTYLINE 25 MG TAB PO SCH (21:00)
[2017-06-12] MEDS: AMITRIPTYLINE 50 MG TAB PO SCH (21:00)
[2017-06-12] MEDS: **NOTE PATIENT COMMENT** MISC XX SCH (21:00)
[2017-06-13] VITALS: BP 128/75
[2017-06-13] MEDS: PANTOPRAZOLE SODIUM 40 MG in D5W MINI-BAG PLUS 50 ML IV SCH ×2 (01:35→05:50)
[2017-06-13] MEDS: MORPHINE 2 MG/ML 1ML SYRINGE IV PRN ×3 (01:49→13:33)
[2017-06-13] MEDS: DICLOFENAC EPOLAMINE 1.3 % PATCH TOP SCH ×3 (02:00→20:33)
[2017-06-13 04:00] VITALS: BP 96/54
[2017-06-13 05:46] LABS: BASO % 0.7 % (0.0-1.0); EOS # 0.2 K/mm3 (0.0-0.50); EOS % 3.1 % (0.0-3.0); LARGE UNSTAINED CELL # 0.1 K/mm3 (0.0-0.4); LARGE UNSTAINED CELL % 1.5 % (0.0-4.0); LYMPH # 1.8 K/mm3 (1.5-4.5); LYMPH % 29.9 % (24.0-44.0); MEAN CORPUSCULAR HEMOGLOBIN 23.6 pg (27.0-33.0); MEAN CORPUSCULAR HGB CONC 32.3 g/dl (32.0-36.5); MEAN CORPUSCULAR VOLUME 72.8 fl (80.0-96.0); MONO # 0.3 K/mm3 (0.0-0.8); NEUTROPHILS # 3.6 K/mm3 (1.8-7.7); NEUTROPHILS % 59.9 % (36.0-66.0); PLATELET COUNT, AUTOMATED 255 k/mm3 (150-450); RED CELL DISTRIBUTION WIDTH 16.8 % (11.5-14.5); WHITE BLOOD COUNT 5.9 K/mm3 (4.0-10.0)
[2017-06-13 06:05] LABS: ALBUMIN 2.9 GM/DL (3.2-5.2); ALBUMIN/GLOBULIN RATIO 0.85 (1.00-1.93); ALKALINE PHOSPHATASE 127 U/L (45-117); ALT/SGPT 257 U/L (12-78); ANION GAP 7 MEQ/L (8-16); AST/SGOT 56 U/L (15-37); BILIRUBIN,TOTAL 0.3 MG/DL (0.2-1.0); BLOOD UREA NITROGEN 4 MG/DL (7-18); CALCIUM LEVEL 7.6 MG/DL (8.5-10.1); CARBON DIOXIDE LEVEL 25 MEQ/L (21-32); CHLORIDE LEVEL 111 MEQ/L (98-107); CREATININE FOR GFR 0.84 MG/DL (0.55-1.02); GLOMERULAR FILTRATION RATE > 60.0 (>60); GLUCOSE, FASTING 105 MG/DL (70-105); POTASSIUM SERUM 3.6 MEQ/L (3.5-5.1); SODIUM LEVEL 143 MEQ/L (136-145); TOTAL PROTEIN 6.3 GM/DL (6.4-8.2)
[2017-06-13] MEDS ORDERED: clonazePAM 0.5 MG TAB PO PRN (07:00)
[2017-06-13 08:00] VITALS: BP 105/61
[2017-06-13] MEDS: LIDOCAINE 5% (LIDODERM) PATCH TD SCH (09:00)
[2017-06-13] MEDS: ANALGESIC BALM CRM 120 GM TOP SCH ×2 (09:00→20:28)
[2017-06-13] MEDS: FERROUS SULFATE 325MG TAB PO SCH ×3 (09:21→20:27)
[2017-06-13] MEDS: PANTOPRAZOLE 40MG TAB (PROTONIX) PO SCH (09:21)
[2017-06-13] MEDS: D5W/0.9% SODIUM CHLORIDE 1,000 ML IV SCH (09:27)
[2017-06-13 12:00] VITALS: BP 118/63
[2017-06-13] MEDS: ONDANSETRON 4MG/2ML VIAL (J2405) IV PRN ×2 (13:25→22:08)
--- NOTE | 2017-06-13 14:51 | IPNPDOC ---
Date Seen The patient was seen on 06/13/17. Progress Note Hospitalist Progress Note Subjective: Patient reports tolerating her diet and not having any more blood; she still reports abd pain Objective: Physical Exam: Vitals: Vital Sign - Last 24 Hours 06/12/17 06/12/17 06/12/17 06/12/17 14:47 14:59 15:30 16:00 Temp 97.2 98.1 Pulse 64 64 63 Resp 16 16 17 B/P (MAP) 118/73 (88) 135/86 (102) 132/91 (105) Pulse Ox 91 93 98 O2 Delivery Room Air Room Air 06/12/17 06/12/17 06/12/17 06/13/17 16:37 20:00 21:37 00:00 Temp 97.6 97.6 Pulse 66 64 Resp 118 20 18 18 B/P (MAP) 131/75 (93) 128/75 (92) Pulse Ox 92 93 O2 Delivery Room Air Room Air Room Air 06/13/17 06/13/17 06/13/17 06/13/17 01:49 04:00 08:00 08:00 Temp 95.3 96.8 Pulse 59 63 Resp 18 20 18 B/P (MAP) 96/54 (68) 105/61 (76) Pulse Ox 93 94 O2 Delivery Room Air Room Air Room Air 06/13/17 06/13/17 06/13/17 06/13/17 09:22 12:00 13:33 13:43 Temp 96.6 Pulse 66 Resp 18 18 20 18 B/P (MAP) 118/63 (81) Pulse Ox 96 O2 Delivery Room Air Room Air Room Air Room Air General: Awake, alert, no acute distress HEENT: Normocephalic, atraumatic, extraocular movements intact CV: Regular rate and rhythm Lungs: clear to auscultation Abd: Soft, tenderness to palpation in left abdomen Extremities: No edema Neuro: Alert and oriented 3, normal speech Psych: normal mood and affect Labs and Imaging: Laboratory Tests 06/13/17 05:32 Red Blood Count 4.72, Mean Corpuscular Volume 72.8 L, Mean Corpuscular Hemoglobin 23.6 L, Mean Corpuscular Hemoglobin Concent 32.3, Red Cell Distribution Width 16.8 H, Neutrophils (%) (Auto) 59.9, Lymphocytes (%) (Auto) 29.9, Monocytes (%) (Auto) 5.0, Eosinophils (%) (Auto) 3.1 H, Basophils (%) ( Auto) 0.7, Neutrophils # (Auto) 3.6, Lymphocytes # (Auto) 1.8, Monocytes # (Auto ) 0.3, Eosinophils # (Auto) 0.2, Basophils # (Auto) 0.0, Calcium Level 7.6 L, Aspartate Amino Transf (AST/SGOT) 56 H, Alanine Aminotransferase (ALT/SGPT) 257 H, Alkaline Phosphatase 127 H, Total Bilirubin 0.3, Total Protein 6.3 L, Albumin 2.9 L Assessment and Plan: 37-year-old female with history of gastric bypass, esophageal stricture status post dilation, bipolar disorder, CHF, hypertension, GERD, substance abuse, chronic pain, chronic migraines, history of heart block status post pacemaker placement who presented to the emergency department with hematemesis, as well as an episode of syncope. She has been admitted with concern for upper GI bleed. 1. Upper GI bleed: The patient is s/p EGD with Dr. Bernabe which was essentially normal. Now tolerating regular diet with no vomiting or bleeding. Continue daily PPI x8 weeks. 2. Anemia: This appears to be chronic in nature. In the last 10 months, the patient's hemoglobin has been in the 9-10 range. Upon arrival, the patient's hemoglobin was 8.8, and she did receive 2 units of PRBCs. Since then, her hemoglobin has been stable in the tens. Today it has even improved to over 11. Continue to monitor. She will need an outpatient colonoscopy for further workup of her iron deficiency anemia. Start ferrous sulfate. 3. Transaminitis: LFTs were significantly elevated upon admission, but CT of the abdomen and pelvis shows only mild hepatosplenomegaly, and right upper quadrant ultrasound shows fatty infiltrate of the liver status post cholecystectomy. They are now trending down. The patient was quite hypotensive upon admission, and it is thought that there may have been a component of ischemic liver. We will continue to trend. Hepatitis panel is negative. 4. History of heart block status post pacemaker placement: The patient's pacemaker was interrogated by Dr. Marks on this admission, and it was found to be functioning appropriately. 5. Bipolar disorder: Resume home Elavil, Klonopin; holding home adderall. 6. Hypertension: Patient has been off of her medications since her gastric bypass. Continue to monitor blood pressure. Patient had some episodes of transient hypotension upon admission; these have now resolved. 7. CHF: Appears compensated at this time. Echo pending. 8. Syncope: The patient has been seen by Dr. Marks of cardiology while inpatient. At this time, he feels that her syncope is neurocardiogenic in nature. He recommends reducing medications with EPIDEMIOLOGY INTERN effects, and he also asked the [employer] it sales representative to activate the mode on her pacemaker that will make the vasovagal mechanism less likely. Pacemaker has been interrogated and is functioning appropriately. She will need continued follow-up with her primary bleacher sulfite pulp Dr. Newman. Echo pending 9. Abd pain: LFTs improving. CT abd/pel unremarkable and EGD unremarkable. Abd exam is benign. Will need continued follow up with primary GI Dr. Earl. Now that she is no longer NPO, will transition from IV to PO pain meds. DVT prophylaxis: SCDs Dispo: transfer to the floor; discharge pending improvement in LFTs and echo results; will need follow up with Dr. Earl in 2 weeks VS, I&O, 24H, Fishbone Vital Signs/I&O Vital Signs Date Time Temp Pulse Resp B/P (MAP) Pulse Ox O2 Delivery O2 Flow Rate FiO2 06/13/17 13:43 18 Room Air 06/13/17 12:00 96.6 66 118/63 (81) 96 I&O- Last 24 Hours up to 6 AM 06/13/17 06:00 Intake Total 1340 ml Output Total 1850 ml Balance -510 ml Laboratory Data 24H LABS Laboratory Tests 2 06/13/17 05:32: White Blood Count 5.9, Red Blood Count 4.72, Hemoglobin 11.1L, Hematocrit 34.4L , Mean Corpuscular Volume 72.8L, Mean Corpuscular Hemoglobin 23.6L, Mean Corpuscular Hemoglobin Concent 32.3, Red Cell Distribution Width 16.8H, Platelet Count 255, Neutrophils (%) (Auto) 59.9, Lymphocytes (%) (Auto) 29.9, Monocytes (%) (Auto) 5.0, Eosinophils (%) (Auto) 3.1H, Basophils (%) (Auto) 0.7 , Neutrophils # (Auto) 3.6, Lymphocytes # (Auto) 1.8, Monocytes # (Auto) 0.3, Eosinophils # (Auto) 0.2, Basophils # (Auto) 0.0, Large Unclassified Cells % 1.5 , Large Unclassified Cells # 0.1, Anion Gap 7L, Glomerular Filtration Rate > 60.0, Blood Urea Nitrogen 4L, Creatinine 0.84, Sodium Level 143, Potassium Level 3.6, Chloride Level 111H, Carbon Dioxide Level 25, Calcium Level 7.6L, Aspartate Amino Transf (AST/SGOT) 56H, Alanine Aminotransferase (ALT/SGPT) 257H , Alkaline Phosphatase 127H, Total Bilirubin 0.3, Total Protein 6.3L, Albumin 2.9L, Magnesium Level 2.0, Albumin/Globulin Ratio 0.85L CBC/BMP Laboratory Tests 06/13/17 05:32 Red Blood Count 4.72, Mean Corpuscular Volume 72.8 L, Mean Corpuscular Hemoglobin 23.6 L, Mean Corpuscular Hemoglobin Concent 32.3, Red Cell Distribution Width 16.8 H, Neutrophils (%) (Auto) 59.9, Lymphocytes (%) (Auto) 29.9, Monocytes (%) (Auto) 5.0, Eosinophils (%) (Auto) 3.1 H, Basophils (%) ( Auto) 0.7, Neutrophils # (Auto) 3.6, Lymphocytes # (Auto) 1.8, Monocytes # (Auto ) 0.3, Eosinophils # (Auto) 0.2, Basophils # (Auto) 0.0, Calcium Level 7.6 L, Aspartate Amino Transf (AST/SGOT) 56 H, Alanine Aminotransferase (ALT/SGPT) 257 H, Alkaline Phosphatase 127 H, Total Bilirubin 0.3, Total Protein 6.3 L, Albumin 2.9 L LIZBETH GAMEZ Jun 13, 2017 14:51
[2017-06-13 16:00] VITALS: BP 128/87
[2017-06-13] MEDS: PERCOCET 5MG/325MG TAB PO PRN ×2 (16:59→22:59)
[2017-06-13] MEDS: AMITRIPTYLINE 50 MG TAB PO SCH (20:29)
[2017-06-13] MEDS: **NOTE PATIENT COMMENT** MISC XX SCH (20:29)
[2017-06-13] MEDS: AMITRIPTYLINE 25 MG TAB PO SCH (20:29)
[2017-06-13 22:00] VITALS: BP 133/76
[2017-06-14 06:00] VITALS: BP 103/64
[2017-06-14] MEDS: PANTOPRAZOLE 40MG TAB (PROTONIX) PO SCH (07:56)
[2017-06-14] MEDS: ANALGESIC BALM CRM 120 GM TOP SCH ×2 (07:56→21:04)
[2017-06-14] MEDS: LIDOCAINE 5% (LIDODERM) PATCH TD SCH (07:56)
[2017-06-14] MEDS: FERROUS SULFATE 325MG TAB PO SCH ×5 (07:56→21:03)
[2017-06-14] MEDS: PERCOCET 5MG/325MG TAB PO PRN ×3 (07:57→21:04)
[2017-06-14 08:06] LABS: BASO % 0.5 % (0.0-1.0); EOS # 0.2 K/mm3 (0.0-0.50); EOS % 3.1 % (0.0-3.0); LARGE UNSTAINED CELL # 0.1 K/mm3 (0.0-0.4); LYMPH % 29.6 % (24.0-44.0); MEAN CORPUSCULAR HEMOGLOBIN 22.9 pg (27.0-33.0); MEAN CORPUSCULAR HGB CONC 30.6 g/dl (32.0-36.5); MEAN CORPUSCULAR VOLUME 74.7 fl (80.0-96.0); MONO # 0.4 K/mm3 (0.0-0.8); MONO % 5.4 % (0.0-5.0); NEUTROPHILS # 3.9 K/mm3 (1.8-7.7); NEUTROPHILS % 60.4 % (36.0-66.0); PLATELET COUNT, AUTOMATED 231 k/mm3 (150-450); RED CELL DISTRIBUTION WIDTH 17.2 % (11.5-14.5); WHITE BLOOD COUNT 6.5 K/mm3 (4.0-10.0)
[2017-06-14 08:13] LABS: ALBUMIN/GLOBULIN RATIO 0.91 (1.00-1.93); ALKALINE PHOSPHATASE 128 U/L (45-117); ALT/SGPT 190 U/L (12-78); ANION GAP 9 MEQ/L (8-16); AST/SGOT 29 U/L (15-37); BILIRUBIN,TOTAL 0.2 MG/DL (0.2-1.0); BLOOD UREA NITROGEN 7 MG/DL (7-18); CARBON DIOXIDE LEVEL 23 MEQ/L (21-32); CHLORIDE LEVEL 114 MEQ/L (98-107); CREATININE FOR GFR 0.89 MG/DL (0.55-1.02); GLOMERULAR FILTRATION RATE > 60.0 (>60); GLUCOSE, FASTING 104 MG/DL (70-105); MAGNESIUM LEVEL 2.1 MG/DL (1.8-2.4); POTASSIUM SERUM 3.6 MEQ/L (3.5-5.1); SODIUM LEVEL 146 MEQ/L (136-145); TOTAL PROTEIN 6.3 GM/DL (6.4-8.2)
--- NOTE | 2017-06-14 12:43 | IPNPDOC ---
Date Seen The patient was seen on 06/14/17. Progress Note Hospitalist Progress Note Subjective: Patient reports tolerating her diet but states that she had one episode last night of spitting up blood; nursing is unaware of this episode Objective: Physical Exam: Vitals: Vital Sign - Last 24 Hours 06/13/17 06/13/17 06/13/17 06/13/17 13:33 13:43 16:00 16:20 Temp 97.7 Pulse 80 Resp 20 18 16 B/P (MAP) 128/87 (101) Pulse Ox 95 O2 Delivery Room Air Room Air Room Air Room Air 06/13/17 06/13/17 06/13/17 06/14/17 16:59 22:00 22:59 06:00 Temp 96.4 96.0 Pulse 71 60 Resp 18 18 18 18 B/P (MAP) 133/76 (95) 103/64 (77) Pulse Ox 95 93 O2 Delivery Room Air Room Air 06/14/17 06/14/17 07:57 08:40 Resp 18 18 General: Awake, alert, no acute distress HEENT: Normocephalic, atraumatic, extraocular movements intact CV: Regular rate and rhythm Lungs: clear to auscultation Abd: Soft, tenderness to palpation in left abdomen Extremities: No edema Neuro: Alert and oriented 3, normal speech Psych: normal mood and affect Labs and Imaging: Laboratory Tests 06/14/17 07:19 Red Blood Count 4.75, Mean Corpuscular Volume 74.7 L, Mean Corpuscular Hemoglobin 22.9 L, Mean Corpuscular Hemoglobin Concent 30.6 L, Red Cell Distribution Width 17.2 H, Neutrophils (%) (Auto) 60.4, Lymphocytes (%) (Auto) 29.6, Monocytes (%) (Auto) 5.4 H, Eosinophils (%) (Auto) 3.1 H, Basophils (%) ( Auto) 0.5, Neutrophils # (Auto) 3.9, Lymphocytes # (Auto) 2.0, Monocytes # (Auto ) 0.4, Eosinophils # (Auto) 0.2, Basophils # (Auto) 0.0, Calcium Level 8.0 L, Aspartate Amino Transf (AST/SGOT) 29, Alanine Aminotransferase (ALT/SGPT) 190 H , Alkaline Phosphatase 128 H, Total Bilirubin 0.2, Total Protein 6.3 L, Albumin 3.0 L Assessment and Plan: 37-year-old female with history of gastric bypass, esophageal stricture status post dilation, bipolar disorder, CHF, hypertension, GERD, substance abuse, chronic pain, chronic migraines, history of heart block status post pacemaker placement who presented to the emergency department with hematemesis, as well as an episode of syncope. She has been admitted with concern for upper GI bleed. 1. Upper GI bleed: The patient is s/p EGD with Dr. Bernabe which was essentially normal. Now tolerating regular diet with no vomiting. Continue daily PPI x8 weeks. Per patient, she had one episode of "spitting up blood" last night but Hgb is stable. 2. Anemia: This appears to be chronic in nature. In the last 10 months, the patient's hemoglobin has been in the 9-10 range. Upon arrival, the patient's hemoglobin was 8.8, and she did receive 2 units of PRBCs. Since then, her hemoglobin has been stable in the tens. Continue to monitor. She will need an outpatient colonoscopy for further workup of her iron deficiency anemia. Continue ferrous sulfate. 3. Transaminitis: LFTs were significantly elevated upon admission, but CT of the abdomen and pelvis shows only mild hepatosplenomegaly, and right upper quadrant ultrasound shows fatty infiltrate of the liver status post cholecystectomy. They are now trending down. The patient was quite hypotensive upon admission, and it is thought that there may have been a component of ischemic liver. We will continue to trend. Hepatitis panel is negative. 4. History of heart block status post pacemaker placement: The patient's pacemaker was interrogated by Dr. Marks on this admission, and it was found to be functioning appropriately. 5. Bipolar disorder: Continue home Elavil, Klonopin; holding home adderall. 6. Hypertension: Patient has been off of her medications since her gastric bypass. Continue to monitor blood pressure. Patient had some episodes of transient hypotension upon admission; these have now resolved. 7. CHF: Appears compensated at this time. Echo pending. 8. Syncope: The patient has been seen by Dr. Marks of cardiology while inpatient. At this time, he feels that her syncope is neurocardiogenic in nature. He recommends reducing medications with HHAS effects, and he also asked the [employer] sales representative to activate the mode on her pacemaker that will make the vasovagal mechanism less likely. Pacemaker has been interrogated and is functioning appropriately. She will need continued follow-up with her primary gold tooler Dr. Newman. Echo pending 9. Abd pain: LFTs improving. CT abd/pel unremarkable and EGD unremarkable. Abd exam is benign. Will need continued follow up with primary GI Dr. Earl. DVT prophylaxis: SCDs Dispo: discharge pending echo results, although it was ordered almost 48H ago, it has not yet been completed; will need follow up with Dr. Earl in 2 weeks VS, I&O, 24H, Fishbone Vital Signs/I&O Vital Signs Date Time Temp Pulse Resp B/P (MAP) Pulse Ox O2 Delivery O2 Flow Rate FiO2 06/14/17 08:40 18 06/14/17 06:00 96.0 60 103/64 (77) 93 Room Air I&O- Last 24 Hours up to 6 AM 06/14/17 05:59 Intake Total 900 ml Output Total 900 ml Balance 0 ml Laboratory Data 24H LABS Laboratory Tests 2 06/14/17 07:19: White Blood Count 6.5, Red Blood Count 4.75, Hemoglobin 10.9L, Hematocrit 35.5L , Mean Corpuscular Volume 74.7L, Mean Corpuscular Hemoglobin 22.9L, Mean Corpuscular Hemoglobin Concent 30.6L, Red Cell Distribution Width 17.2H, Platelet Count 231, Neutrophils (%) (Auto) 60.4, Lymphocytes (%) (Auto) 29.6, Monocytes (%) (Auto) 5.4H, Eosinophils (%) (Auto) 3.1H, Basophils (%) (Auto) 0.5 , Neutrophils # (Auto) 3.9, Lymphocytes # (Auto) 2.0, Monocytes # (Auto) 0.4, Eosinophils # (Auto) 0.2, Basophils # (Auto) 0.0, Large Unclassified Cells % 1.0 , Large Unclassified Cells # 0.1, Anion Gap 9, Glomerular Filtration Rate > 60.0 , Blood Urea Nitrogen 7#, Creatinine 0.89, Sodium Level 146H, Potassium Level 3.6, Chloride Level 114H, Carbon Dioxide Level 23, Calcium Level 8.0L, Aspartate Amino Transf (AST/SGOT) 29, Alanine Aminotransferase (ALT/SGPT) 190H, Alkaline Phosphatase 128H, Total Bilirubin 0.2, Total Protein 6.3L, Albumin 3.0L , Magnesium Level 2.1, Albumin/Globulin Ratio 0.91L CBC/BMP Laboratory Tests 06/14/17 07:19 Red Blood Count 4.75, Mean Corpuscular Volume 74.7 L, Mean Corpuscular Hemoglobin 22.9 L, Mean Corpuscular Hemoglobin Concent 30.6 L, Red Cell Distribution Width 17.2 H, Neutrophils (%) (Auto) 60.4, Lymphocytes (%) (Auto) 29.6, Monocytes (%) (Auto) 5.4 H, Eosinophils (%) (Auto) 3.1 H, Basophils (%) ( Auto) 0.5, Neutrophils # (Auto) 3.9, Lymphocytes # (Auto) 2.0, Monocytes # (Auto ) 0.4, Eosinophils # (Auto) 0.2, Basophils # (Auto) 0.0, Calcium Level 8.0 L, Aspartate Amino Transf (AST/SGOT) 29, Alanine Aminotransferase (ALT/SGPT) 190 H , Alkaline Phosphatase 128 H, Total Bilirubin 0.2, Total Protein 6.3 L, Albumin 3.0 L LIZBETH GAMEZ Jun 14, 2017 12:43
[2017-06-14 14:00] VITALS: BP 133/75
[2017-06-14] MEDS: DICLOFENAC EPOLAMINE 1.3 % PATCH TOP SCH (14:29)
[2017-06-14] MEDS ORDERED: ONDANSETRON 4 MG TAB (S0181) PO PRN (15:45)
[2017-06-14] MEDS: **NOTE PATIENT COMMENT** MISC XX SCH (21:00)
[2017-06-14] MEDS: AMITRIPTYLINE 25 MG TAB PO SCH (21:02)
[2017-06-14] MEDS: AMITRIPTYLINE 50 MG TAB PO SCH (21:03)
--- NOTE | 2017-06-14 21:30 | ECHO ---
DATE OF PROCEDURE: 06/14/2017 REFERRING PHYSICIAN: Mayra Barboza MD INDICATION: Syncope. HEIGHT: 152 cm WEIGHT: 103 kg DIMENSIONS: IVS: 1.0 LV: 4.9 LVPW: 1.2 LA: 3.5 Aorta: 2.9 FINDINGS: The study is of rather limited technical quality corresponding to patient's body habitus. Left ventricle is of normal size with overall normal systolic function. Mild left ventricular hypertrophy (LVH) is noted. Estimated ejection fraction (EF) is around 65%. Right ventricle does not appear enlarged. Both atria appear normal. There is a pacemaker wire artifact apparent in right-sided heart chambers. Aortic, mitral, tricuspid and pulmonic valves appear grossly normal. No pericardial effusion is noted. Inferior vena cava is upper limits of normal size and has normal collapse with respiration. Aortic root appears normal. Aortic arch was not well seen. Abdominal aorta appears normal. Doppler interrogation of aortic valve reveals no stenosis or insufficiency. There is also no mitral stenosis or insufficiency. There is mild tricuspid insufficiency. Calculated pulmonary artery pressure is within normal limits. Pulmonic valve is functionally competent. Mitral inflow pattern and tissue Doppler imaging of mitral annulus reveal likely normal diastolic function of left ventricle even though tissue Doppler velocity of septal mitral annulus is mildly reduced (E prime septal 7.6 cm/s, lateral 10.6 cm/s). CONCLUSIONS: 1. Study is of limited technical quality corresponding to patient's body habitus. 2. Normal left ventricle (LV) size with mild LVH and normal LV systolic function. Normal diastolic function. 3. No significant valvular disease. 4. Likely normal central venous pressure and normal pulmonary artery pressure. 5. Pacemaker wire artifact apparent in right-sided heart chambers. COMMENT: Subacute bacterial endocarditis (SBE) prophylaxis is not recommended.
[2017-06-14 22:00] VITALS: BP 136/81
[2017-06-15] MEDS: DICLOFENAC EPOLAMINE 1.3 % PATCH TOP SCH ×2 (02:00→14:24)
[2017-06-15 06:00] VITALS: BP 92/53
[2017-06-15 06:48] LABS: BASO % 0.5 % (0.0-1.0); EOS # 0.2 K/mm3 (0.0-0.50); EOS % 2.3 % (0.0-3.0); LARGE UNSTAINED CELL # 0.1 K/mm3 (0.0-0.4); LARGE UNSTAINED CELL % 1.8 % (0.0-4.0); LYMPH # 2.3 K/mm3 (1.5-4.5); LYMPH % 30.9 % (24.0-44.0); MEAN CORPUSCULAR HEMOGLOBIN 23.4 pg (27.0-33.0); MEAN CORPUSCULAR HGB CONC 31.6 g/dl (32.0-36.5); MEAN CORPUSCULAR VOLUME 73.9 fl (80.0-96.0); MONO # 0.3 K/mm3 (0.0-0.8); MONO % 4.4 % (0.0-5.0); NEUTROPHILS # 4.4 K/mm3 (1.8-7.7); PLATELET COUNT, AUTOMATED 266 k/mm3 (150-450); WHITE BLOOD COUNT 7.3 K/mm3 (4.0-10.0)
[2017-06-15 07:10] LABS: ALBUMIN 3.1 GM/DL (3.2-5.2); ALBUMIN/GLOBULIN RATIO 0.91 (1.00-1.93); ALKALINE PHOSPHATASE 119 U/L (45-117); ALT/SGPT 157 U/L (12-78); ANION GAP 12 MEQ/L (8-16); AST/SGOT 37 U/L (15-37); BILIRUBIN,TOTAL 0.3 MG/DL (0.2-1.0); BLOOD UREA NITROGEN 9 MG/DL (7-18); CALCIUM LEVEL 7.6 MG/DL (8.5-10.1); CARBON DIOXIDE LEVEL 23 MEQ/L (21-32); CHLORIDE LEVEL 109 MEQ/L (98-107); CREATININE FOR GFR 0.86 MG/DL (0.55-1.02); GLOMERULAR FILTRATION RATE > 60.0 (>60); GLUCOSE, FASTING 79 MG/DL (70-105); POTASSIUM SERUM 3.9 MEQ/L (3.5-5.1); SODIUM LEVEL 144 MEQ/L (136-145); TOTAL PROTEIN 6.5 GM/DL (6.4-8.2)
[2017-06-15] MEDS: ANALGESIC BALM CRM 120 GM TOP SCH (08:55)
[2017-06-15] MEDS: LIDOCAINE 5% (LIDODERM) PATCH TD SCH (08:55)
[2017-06-15] MEDS: FERROUS SULFATE 325MG TAB PO SCH (08:55)
[2017-06-15] MEDS: PANTOPRAZOLE 40MG TAB (PROTONIX) PO SCH (08:56)
[2017-06-15] MEDS: PERCOCET 5MG/325MG TAB PO PRN (12:19)
[2017-06-15 14:00] VITALS: BP 137/79
[2017-06-15] MEDS ORDERED: FERR1TAB8 PO (14:43)
[2017-06-15] MEDS ORDERED: PANT40TA2 PO (14:43)
--- NOTE | 2017-06-15 14:44 | DS.PDOC ---
Discharge Summary General Date of Admission Jun 09, 2017 at 23:48 Date of Discharge 06/15/2017 Discharge Summary DISCHARGE SUMMARY DATE OF ADMISSION: 06/09/2017 DATE OF DISCHARGE: 06/15/2017 PRIMARY CARE PHYSICIAN: Dong jimenez DISCHARGE DIAGNOS(E)S: Upper GI bleed Anemia Transaminitis Syncope HPI & HOSPITAL COURSE: 37-year-old female with history of gastric bypass, esophageal stricture status post dilation, bipolar disorder, CHF, hypertension, GERD, substance abuse, chronic pain, chronic migraines, history of heart block status post pacemaker placement who presented to the emergency department with hematemesis, as well as an episode of syncope. She has been admitted with concern for upper GI bleed. 1. Upper GI bleed: The patient is s/p EGD with Dr. Bernabe which was essentially normal. Now tolerating regular diet with no vomiting. Continue daily PPI x8 weeks. Hgb is stable. 2. Anemia: This appears to be chronic in nature. In the last 10 months, the patient's hemoglobin has been in the 9-10 range. Upon arrival, the patient's hemoglobin was 8.8, and she did receive 2 units of PRBCs. Since then, her hemoglobin has been stable in the tens. Continue to monitor. She will need an outpatient colonoscopy for further workup of her iron deficiency anemia. Continue ferrous sulfate. 3. Transaminitis: LFTs were significantly elevated upon admission, but CT of the abdomen and pelvis shows only mild hepatosplenomegaly, and right upper quadrant ultrasound shows fatty infiltrate of the liver status post cholecystectomy. They are now trending down. The patient was quite hypotensive upon admission, and it is thought that there may have been a component of ischemic liver. We will continue to trend. Hepatitis panel is negative. 4. History of heart block status post pacemaker placement: The patient's pacemaker was interrogated by Dr. Marks on this admission, and it was found to be functioning appropriately. 5. Bipolar disorder: Continue home Elavil, Klonopin; holding home adderall. 6. Hypertension: Patient has been off of her medications since her gastric bypass. Continue to monitor blood pressure. Patient had some episodes of transient hypotension upon admission; these have now resolved. 7. CHF: Appears compensated at this time. Echo reveals normal EF and normal diastolic function. 8. Syncope: The patient has been seen by Dr. Marks of cardiology while inpatient. At this time, he feels that her syncope is neurocardiogenic in nature. He recommends reducing medications with DRAWER [employer]TER effects, and he also asked the [employer] employment program representative to activate the mode on her pacemaker that will make the vasovagal mechanism less likely. Pacemaker has been interrogated and is functioning appropriately. She will need continued follow-up with her primary cvor nurse Dr. Newman. Echo unremarkable. 9. Abd pain: LFTs improving. CT abd/pel unremarkable and EGD unremarkable. Abd exam is benign. Will need continued follow up with primary GI Dr. Earl. DVT prophylaxis: SCDs PHYSICAL EXAMINATION ON DISCHARGE: VITAL SIGNS: Vital Sign - Last 24 Hours 06/14/17 06/14/17 06/15/17 06/15/17 21:04 22:00 06:00 08:00 Temp 97.0 97.0 Pulse 64 65 Resp 18 18 16 16 B/P (MAP) 136/81 (99) 92/53 (66) Pulse Ox 96 95 O2 Delivery Room Air Room Air 06/15/17 06/15/17 12:19 12:49 Resp 18 17 General: Awake, alert, no acute distress HEENT: Normocephalic, atraumatic, extraocular movements intact CV: Regular rate and rhythm Lungs: clear to auscultation Abd: Soft, tenderness to palpation in left abdomen Extremities: No edema Neuro: Alert and oriented 3, normal speech Psych: normal mood and affect DISPOSITION: Home DISCHARGE INSTRUCTIONS: Follow up with PCP within one week Follow-up with Dr. Earl in 2 weeks; will need to be scheduled for outpatient colonoscopy for further workup of iron deficiency anemia. Follow-up Dr. Newman in 2 weeks. If symptoms return, or if you experience worsening of your symptoms, please call your doctor or return to the emergency department. ITEMS THAT NEED OUTPATIENT FOLLOWUP: Needs to be set up for outpatient colonoscopy for further workup of iron deficiency anemia Patient was seen and examined by me on the day of discharge, and I spent a total time of greater than 30 minutes on this discharge. Vital Signs/I&Os Vital Signs Date Time Temp Pulse Resp B/P (MAP) Pulse Ox O2 Delivery O2 Flow Rate FiO2 06/15/17 12:49 17 06/15/17 06:00 97.0 65 92/53 (66) 95 Room Air I&O- Last 24 Hours up to 6 AM 06/15/17 05:59 Intake Total 840 ml Output Total 100 ml Balance 740 ml Laboratory Data Labs 24H Laboratory Tests 2 06/15/17 05:48: White Blood Count 7.3, Red Blood Count 4.76, Hemoglobin 11.1L, Hematocrit 35.2L , Mean Corpuscular Volume 73.9L, Mean Corpuscular Hemoglobin 23.4L, Mean Corpuscular Hemoglobin Concent 31.6L, Red Cell Distribution Width 17.0H, Platelet Count 266, Neutrophils (%) (Auto) 60.0, Lymphocytes (%) (Auto) 30.9, Monocytes (%) (Auto) 4.4, Eosinophils (%) (Auto) 2.3, Basophils (%) (Auto) 0.5, Neutrophils # (Auto) 4.4, Lymphocytes # (Auto) 2.3, Monocytes # (Auto) 0.3, Eosinophils # (Auto) 0.2, Basophils # (Auto) 0.0, Large Unclassified Cells % 1.8 , Large Unclassified Cells # 0.1, Anion Gap 12, Glomerular Filtration Rate > 60.0, Blood Urea Nitrogen 9, Creatinine 0.86, Sodium Level 144, Potassium Level 3.9, Chloride Level 109H, Carbon Dioxide Level 23, Calcium Level 7.6L, Aspartate Amino Transf (AST/SGOT) 37, Alanine Aminotransferase (ALT/SGPT) 157H, Alkaline Phosphatase 119H, Total Bilirubin 0.3, Total Protein 6.5, Albumin 3.1L , Magnesium Level 2.0, Albumin/Globulin Ratio 0.91L CBC/BMP Laboratory Tests 06/15/17 05:48 Red Blood Count 4.76, Mean Corpuscular Volume 73.9 L, Mean Corpuscular Hemoglobin 23.4 L, Mean Corpuscular Hemoglobin Concent 31.6 L, Red Cell Distribution Width 17.0 H, Neutrophils (%) (Auto) 60.0, Lymphocytes (%) (Auto) 30.9, Monocytes (%) (Auto) 4.4, Eosinophils (%) (Auto) 2.3, Basophils (%) (Auto ) 0.5, Neutrophils # (Auto) 4.4, Lymphocytes # (Auto) 2.3, Monocytes # (Auto) 0.3, Eosinophils # (Auto) 0.2, Basophils # (Auto) 0.0, Calcium Level 7.6 L, Aspartate Amino Transf (AST/SGOT) 37, Alanine Aminotransferase (ALT/SGPT) 157 H , Alkaline Phosphatase 119 H, Total Bilirubin 0.3, Total Protein 6.5, Albumin 3.1 L Discharge Medications Scheduled Amitriptyline HCl (Amitriptyline HCl) 25 Mg Tab, 25 MG PO QHS, (Reported) Amitriptyline HCl (Amitriptyline HCl) 100 Mg Tab, 100 MG PO QHS, (Reported) Cyanocobalamin (Cyanocobalamin) 1,000 Mcg/1 Ml Inj, 1,000 MCG IM QWEEK, ( Reported) Fenofibrate (Fenofibrate) 48 Mg Tab, 48 MG PO DAILY, (Reported) Ferrous Sulfate (Ferrous Sulfate) 325 Mg Tab, 325 MG PO TID Pantoprazole Sodium (Pantoprazole Sodium) 40 Mg Tab, 40 MG PO DAILY Vitamin D (Drisdol) 50,000 Unit Cap, 50,000 UNIT PO QWEEK, (Reported) Zonisamide (Zonisamide) 100 Mg Cap, 200 MG PO QHS, (Reported) Scheduled PRN (Epipen 2-Arsenio) 0.3 Mg/0.3 Ml Inj, 0.3 MG IM ASDIRECTED PRN for ANAPHYLAXIS, ( Reported) Amphetamine/Dextroamphetamine (Amphetamine/Dextroampheta 20 mg) 1 Cap Cap, 1 CAP PO DAILY PRN for ADHD, (Reported) Amphetamine/Dextroamphetamine (Adderall 5 mg) 1 Tab Tab, 10 MG PO DAILY PRN for ADHD, (Reported) TAKES AT NOON Clonazepam (Clonazepam) 0.5 Mg Tab, 0.5 MG PO TID PRN for ANXIETY, (Reported) Ondansetron HCl (Ondansetron HCl) 4 Mg Tab, 4 MG PO Q4H PRN for NAUSEA, ( Reported) Allergies Coded Allergies: Bee Venom (Verified Allergy, Severe, Anaphylaxis , 04/19/17) SEAFOOD (Verified Allergy, Severe, Anaphylaxis , 04/19/17) Shellfish Allergy (Verified Allergy, Severe, Anaphylaxis , 04/19/17) Sertraline (Unverified Allergy, Intermediate, RASH, 04/19/17) TAPE (Verified Adverse Reaction, Mild, Burning/Itching of the skin. , 04/19) LIZBETH GAMEZ Jun 15, 2017 14:44
[2017-06-27 00:06] LABS: 7-Aminoclonazepam 46 ng/mL (.); Alprazolam Negative (.); Chlordiazepoxide Negative (.); Clonazepam 26 ng/mL (.); Codeine Negative (.); Diazepam Negative (.); Hydrocodone 19.2 ng/mL (.); Hydromorphone Negative (.); Lorazepam Negative (.); Midazolam Negative (.); Morphine Negative (.); Temazepam Negative (.); Triazolam Negative (.)
[2017-07-12] MEDS ORDERED: ASPI325T24 PO (10:15)
[2017-07-12] MEDS ORDERED: [UNRECOGNIZED DRUG - CODE] PO (10:15)
[2017-07-12] MEDS ORDERED: MISO200T56 PO (10:15)
== END 2017-06-15 15:37 | disposition home or self-care (01) | DRG 378 ==
LOC: M ED 17:46 → M ED INP 23:48 → M ICU 06-10 05:43 → M PCU 06-12 15:10 → M MSPAV 06-13 16:00
PROVIDERS: ADMIT Internal Medicine; ATTEND Hospitalist
PROC: 30233N1 Transfusion of Nonautologous Red Blood Cells into Peripheral Vein, Percutaneous Approach (ICD-10-PCS; principal; 2017-06-10)
PROC: 0DJ08ZZ Inspection of Upper Intestinal Tract, Via Natural or Artificial Opening Endoscopic (ICD-10-PCS; 2017-06-12)
DX: K92.2 Gastrointestinal hemorrhage, unspecified (principal); Z68.41 Body mass index [BMI] 40.0-44.9, adult; I50.32 Chronic diastolic (congestive) heart failure; D62 Acute posthemorrhagic anemia; R10.13 Epigastric pain; F31.9 Bipolar disorder, unspecified; Z79.899 Other long term (current) drug therapy; Z88.8 Allergy status to other drugs, medicaments and biological substances; Z91.030 Bee allergy status; Z91.013 Allergy to seafood; I11.9 Hypertensive heart disease without heart failure; K21.9 Gastro-esophageal reflux disease without esophagitis; D50.9 Iron deficiency anemia, unspecified; Z95.0 Presence of cardiac pacemaker; R55 Syncope and collapse; G89.29 Other chronic pain; I95.9 Hypotension, unspecified; G43.909 Migraine, unspecified, not intractable, without status migrainosus; Z85.41 Personal history of malignant neoplasm of cervix uteri; Z98.84 Bariatric surgery status; F17.200 Nicotine dependence, unspecified, uncomplicated; F43.10 Post-traumatic stress disorder, unspecified; E78.5 Hyperlipidemia, unspecified

== ENCOUNTER 2017-06-29 09:18 | Emergency (ER) | payer MEDICARE, OTHER ==
[~2017-06-29] VITALS: Ht 154.9 cm; Wt 99.1 kg
[~2017-06-29 09:18] MED LIST changes: +AMPH20CA PO; +CLON0.5T PO; +FENO48TA2 PO; +FERR1TAB8 PO; +ONDA4TAB5 PO
[2017-06-29] MEDS ORDERED: ISOVUE-370 76% 100ML VIAL (Q9967) ONE (09:19)
[2017-06-29] MEDS ORDERED: ZONI50CA3 PO (09:28)
[2017-06-29] MEDS ORDERED: ONDANSETRON 4MG/2ML VIAL (J2405) IV ONE (10:00)
[2017-06-29] MEDS ORDERED: PANTOPRAZOLE 40MG INJ (PROTONIX) (C9113) IV ONE (10:00)
[2017-06-29] MEDS ORDERED: NS 1,000 ML IV ONE (10:00)
[2017-06-29] MEDS: MORPHINE 4 MG/ML 1ML SYRINGE IV PRN ×2 (10:13→12:50)
[2017-06-29 10:32] LABS: BASO # 0.1 10^3/uL (0.0-0.2); BASO % 0.7 % (0.0-1.0); EOS # 0.2 10^3/uL (0.0-0.50); EOS % 1.5 % (0.0-3.0); IMMATURE GRANULOCYTE % 0.8 % (0-0); LYMPH # 2.5 10^3/uL (1.5-4.5); LYMPH % 24.1 % (24.0-44.0); MEAN CORPUSCULAR HEMOGLOBIN 23.1 pg (27.0-33.0); MEAN CORPUSCULAR HGB CONC 30.9 g/dl (32.0-36.5); MEAN CORPUSCULAR VOLUME 74.8 fl (80.0-96.0); MONO # 0.6 10^3/uL (0.0-0.8); MONO % 5.8 % (0.0-5.0); NEUTROPHILS # 6.9 10^3/uL (1.8-7.7); NEUTROPHILS % 67.1 % (36.0-66.0); PLATELET COUNT, AUTOMATED 389 10^3/uL (150-450); RED CELL DISTRIBUTION WIDTH 18.9 % (11.5-14.5); WHITE BLOOD COUNT 10.3 10^3/uL (4.0-10.0)
[2017-06-29 10:50] LABS: INR 1.06
[2017-06-29 10:57] LABS: ALBUMIN 3.9 GM/DL (3.2-5.2); ALBUMIN/GLOBULIN RATIO 1.15 (1.00-1.93); ALKALINE PHOSPHATASE 76 U/L (45-117); ALT/SGPT 24 U/L (12-78); AMYLASE 20 U/L (25-115); ANION GAP 6 MEQ/L (8-16); AST/SGOT 13 U/L (15-37); BILIRUBIN,DIRECT 0.1 MG/DL (0.0-0.2); BILIRUBIN,TOTAL 0.3 MG/DL (0.2-1.0); BLOOD UREA NITROGEN 7 MG/DL (7-18); CALCIUM LEVEL 8.7 MG/DL (8.5-10.1); CARBON DIOXIDE LEVEL 25 MEQ/L (21-32); CHLORIDE LEVEL 109 MEQ/L (98-107); CREATININE FOR GFR 0.68 MG/DL (0.55-1.02); GLOMERULAR FILTRATION RATE > 60.0 (>60); GLUCOSE, FASTING 83 MG/DL (70-105); POTASSIUM SERUM 4.2 MEQ/L (3.5-5.1); SODIUM LEVEL 140 MEQ/L (136-145); TOTAL PROTEIN 7.3 GM/DL (6.4-8.2)
--- NOTE | 2017-06-29 12:49 | REP ---
CT ABDOMEN AND PELVIS WITH IV CONTRAST: TECHNIQUE: Axial contrast enhanced images from the lung bases to the pubic symphysis using 100 mL Isovue 370 intravenous contrast material with multiplanar reformations. Visualized lung bases demonstrate mild fibroatelectatic change. The liver appears unremarkable. The patient has had a prior cholecystectomy and there is evidence of prior gastric bypass surgery. Spleen, adrenals, pancreas and kidneys are unremarkable. There is no hydronephrosis. There is no abdominal aortic aneurysm. There is no adenopathy. There is no free air or free fluid. No bowel wall thickening is seen. No pelvic mass is seen. The urinary bladder is mildly distended and grossly unremarkable. IMPRESSION: No acute abnormalities. Signed by Eric Boone MD 06/29/2017 05:18 P
[2017-06-29] MEDS ORDERED: MORPHINE 4 MG/ML 1ML SYRINGE IV ONE (15:45)
[2017-06-29 17:01] VITALS: BP 128/78
[2017-07-12] MEDS ORDERED: [UNRECOGNIZED DRUG - CODE] PO (10:15)
[2017-07-12] MEDS ORDERED: MISO200T56 PO (10:15)
[2017-07-12] MEDS ORDERED: ASPI325T24 PO (10:15)
== END 2017-06-29 17:07 | disposition short-term general hospital (02) ==
LOC: M ED 09:18
DX: K29.71 Gastritis, unspecified, with bleeding (principal); I25.10 Atherosclerotic heart disease of native coronary artery without angina pectoris; I50.9 Heart failure, unspecified; I25.2 Old myocardial infarction; Z86.73 Personal history of transient ischemic attack (TIA), and cerebral infarction without residual deficits; Z95.0 Presence of cardiac pacemaker; R00.1 Bradycardia, unspecified; E78.5 Hyperlipidemia, unspecified; Z87.440 Personal history of urinary (tract) infections; K21.9 Gastro-esophageal reflux disease without esophagitis; D64.9 Anemia, unspecified; K58.9 Irritable bowel syndrome, unspecified; M54.9 Dorsalgia, unspecified; F41.9 Anxiety disorder, unspecified; F32.9 Major depressive disorder, single episode, unspecified; G43.909 Migraine, unspecified, not intractable, without status migrainosus; J45.909 Unspecified asthma, uncomplicated; R04.0 Epistaxis; Z85.41 Personal history of malignant neoplasm of cervix uteri; Z98.84 Bariatric surgery status; Z87.891 Personal history of nicotine dependence; Z79.899 Other long term (current) drug therapy; Z91.030 Bee allergy status; Z91.013 Allergy to seafood; Z91.89 Other specified personal risk factors, not elsewhere classified; Z88.8 Allergy status to other drugs, medicaments and biological substances
CPT/HCPCS: 74177; 80048; 80076; 81001; 82150; 83690; 85025; 85610; 85730; 96361; 96374; 96375; 96376; 99284; C9113; J2405; Q9967

== ENCOUNTER 2017-07-16 09:56 | Outpatient (CLI) | payer MEDICARE, OTHER ==
[~2017-07-16] VITALS: Ht 154.9 cm; Wt 97.5 kg
[~2017-07-16 09:56] MED LIST changes: +ASPI325T24 PO; +MISO200T56 PO; +ZONI50CA3 PO; +[UNRECOGNIZED DRUG - CODE] PO
[2017-07-16] MEDS ORDERED: NS 1,000 ML IV ONE (10:15)
[2017-07-16] MEDS ORDERED: fentaNYL 100 MCG/2 ML INJECTION (J3010) As Ordered ONE (11:18)
[2017-07-16] MEDS ORDERED: PROPOFOL 200 MG/20 ML VIAL As Ordered ONE (11:36)
[2017-07-16] MEDS ORDERED: LIDOCAINE 2% INJ 100 MG/5 ML SDV (FOR ANES.) As Ordered ONE (11:36)
--- NOTE | 2017-07-16 11:47 | ROOR ---
Patient Name: Suyapa Shukri Procedure Date: 07/16/2017 11:21 AM Date of : 1980 Age: 37 Room: [facility] Gender: Female Note Status: Finalized Procedure: Upper GI endoscopy Indications: Iron deficiency anemia Providers: Fortunato Earl MD Referring MD: COLLETTE MURDOCK MD Requesting Provider: Medicines: Monitored Anesthesia Care Complications: No immediate complications. Procedure: Pre-Anesthesia Assessment: - The heart rate, respiratory rate, oxygen saturations, blood pressure, adequacy of pulmonary ventilation, and response to care were monitored throughout the procedure. The Endoscope was introduced through the mouth, and advanced to the second part of duodenum. The upper GI endoscopy was accomplished without difficulty. The patient tolerated the procedure well. Findings: The Z-line was variable and was found 35 cm from the incisors. Evidence of a gastric bypass was found. A gastric pouch with a small size was found. The staple line appeared intact. The gastrojejunal anastomosis was characterized by congestion, erosion and ulceration. This was traversed. The exam was otherwise without abnormality. Impression: - Z-line variable, 35 cm from the incisors. - Gastric bypass with a small-sized pouch and intact staple line. Gastrojejunal anastomosis characterized by ulceration, congestion and erosion. - The examination was otherwise normal. - No specimens collected. - The examination was otherwise normal. Recommendation: - Patient has a contact number available for emergencies. The signs and symptoms of potential delayed complications were discussed with the patient. Return to normal activities tomorrow. Written discharge instructions were provided to the patient. - High fiber diet. - Discharge patient to home. - Use sucralfate tablets 1 gram PO QID. - Return to referring physician. - The findings and recommendations were discussed with the patient's family. Fortunato Earl MD Fortunato Earl MD 07/16/2017 11:47:25 AM This report has been signed electronically. Number of Addenda: 0 Note Initiated On: 07/16/2017 11:21 AM Estimated Blood Loss: Estimated blood loss: none.
--- NOTE | 2017-07-16 11:52 | ROOR ---
Patient Name: Suyapa Shukri Procedure Date: 07/16/2017 11:22 AM Date of : 1980 Age: 37 Room: [facility] Gender: Female Note Status: Finalized Procedure: Total Colonoscopy to Cecum + Biopsy Polypectomy Indications: Iron deficiency anemia Providers: Fortunato Earl MD Referring MD: COLLETTE MURDOCK MD Requesting Provider: Medicines: Monitored Anesthesia Care Complications: No immediate complications. Procedure: Pre-Anesthesia Assessment: - The heart rate, respiratory rate, oxygen saturations, blood pressure, adequacy of pulmonary ventilation, and response to care were monitored throughout the procedure. The Colonoscope was introduced through the anus and advanced to the cecum, identified by appendiceal orifice and ileocecal valve. The colonoscopy was performed without difficulty. The patient tolerated the procedure well. The quality of the bowel preparation was good. Findings: The perianal and digital rectal examinations were normal. Non-bleeding internal hemorrhoids were found during retroflexion. The hemorrhoids were small and Grade I (internal hemorrhoids that do not prolapse). A small polyp was found at 35 cm proximal to the anus. The polyp was sessile. The polyp was removed with a cold biopsy forceps. Resection and retrieval were complete. The exam was otherwise without abnormality on direct and retroflexion views. Impression: - Non-bleeding internal hemorrhoids. - One small polyp at 35 cm proximal to the anus, removed with a cold biopsy forceps. Resected and retrieved. - The examination was otherwise normal on direct and retroflexion views. - The exam was otherwise normal to the cecum. Recommendation: - Patient has a contact number available for emergencies. The signs and symptoms of potential delayed complications were discussed with the patient. Return to normal activities tomorrow. Written discharge instructions were provided to the patient. - High fiber diet. - Discharge patient to home. - Continue present medications. - Await pathology results. - Telephone GI clinic for pathology results in 1 week. - Repeat colonoscopy for surveillance based on pathology results. - Return to referring physician. - The findings and recommendations were discussed with the patient's family. Fortunato Earl MD Fortunato Earl MD 07/16/2017 11:51:45 AM This report has been signed electronically. Number of Addenda: 0 Note Initiated On: 07/16/2017 11:22 AM Estimated Blood Loss: Estimated blood loss: none.
[2017-07-16 12:14] VITALS: BP 125/69
== END 2017-07-16 12:20 | disposition home or self-care (01) ==
LOC: M OPP 09:56
PROVIDERS: ATTEND Internal Medicine Gastroenterology
DX: D50.9 Iron deficiency anemia, unspecified (principal); R10.9 Unspecified abdominal pain; R11.2 Nausea with vomiting, unspecified; K63.5 Polyp of colon; K64.0 First degree hemorrhoids; K22.8 Other specified diseases of esophagus; Z98.0 Intestinal bypass and anastomosis status; K31.89 Other diseases of stomach and duodenum; K21.9 Gastro-esophageal reflux disease without esophagitis; R00.1 Bradycardia, unspecified; I25.119 Atherosclerotic heart disease of native coronary artery with unspecified angina pectoris; I50.9 Heart failure, unspecified; I11.0 Hypertensive heart disease with heart failure; I25.2 Old myocardial infarction; R60.0 Localized edema; Z95.0 Presence of cardiac pacemaker; K92.2 Gastrointestinal hemorrhage, unspecified; K58.9 Irritable bowel syndrome, unspecified; R12 Heartburn; K25.9 Gastric ulcer, unspecified as acute or chronic, without hemorrhage or perforation; F41.9 Anxiety disorder, unspecified; F31.9 Bipolar disorder, unspecified; G43.909 Migraine, unspecified, not intractable, without status migrainosus; R94.01 Abnormal electroencephalogram [EEG]; J45.909 Unspecified asthma, uncomplicated; Z98.84 Bariatric surgery status; Z87.891 Personal history of nicotine dependence; Z88.8 Allergy status to other drugs, medicaments and biological substances; Z91.048 Other nonmedicinal substance allergy status; Z91.013 Allergy to seafood; Z91.030 Bee allergy status; Z79.82 Long term (current) use of aspirin; Z79.899 Other long term (current) drug therapy; Z80.41 Family history of malignant neoplasm of ovary
CPT/HCPCS: 43235; 45380; 88305; J3010

== ENCOUNTER 2017-08-13 19:34 | Emergency (ER) | payer MEDICARE, OTHER ==
[~2017-08-13] VITALS: Ht 154.9 cm; Wt 88.6 kg
[2017-08-13] MEDS ORDERED: SUCR1TA PO (19:50)
[2017-08-13 20:17] LABS: BASO # 0.1 10^3/uL (0.0-0.2); BASO % 0.5 % (0.0-1.0); EOS # 0.2 10^3/uL (0.0-0.50); EOS % 1.6 % (0.0-3.0); IMMATURE GRANULOCYTE % 1.4 % (0-0); LYMPH # 3.5 10^3/uL (1.5-4.5); LYMPH % 30.9 % (24.0-44.0); MEAN CORPUSCULAR HEMOGLOBIN 24.5 pg (27.0-33.0); MEAN CORPUSCULAR HGB CONC 31.5 g/dl (32.0-36.5); MEAN CORPUSCULAR VOLUME 77.8 fl (80.0-96.0); MONO # 0.6 10^3/uL (0.0-0.8); MONO % 5.4 % (0.0-5.0); NEUTROPHILS # 6.8 10^3/uL (1.8-7.7); NEUTROPHILS % 60.2 % (36.0-66.0); PLATELET COUNT, AUTOMATED 319 10^3/uL (150-450); RED CELL DISTRIBUTION WIDTH 17.8 % (11.5-14.5); WHITE BLOOD COUNT 11.2 10^3/uL (4.0-10.0)
[2017-08-13 20:31] LABS: ANION GAP 7 MEQ/L (8-16); BLOOD UREA NITROGEN 15 MG/DL (7-18); CALCIUM LEVEL 8.4 MG/DL (8.5-10.1); CARBON DIOXIDE LEVEL 23 MEQ/L (21-32); CHLORIDE LEVEL 111 MEQ/L (98-107); CREATININE FOR GFR 0.94 MG/DL (0.55-1.02); GLOMERULAR FILTRATION RATE > 60.0 (>60); GLUCOSE, FASTING 110 MG/DL (70-105); POTASSIUM SERUM 3.7 MEQ/L (3.5-5.1); SODIUM LEVEL 141 MEQ/L (136-145)
[2017-08-13] MEDS: NITROGLYCERIN 0.4 MG SUBL TABLET SL PRN ×3 (21:05→21:51)
[2017-08-13] MEDS ORDERED: ACETAMINOPHEN TAB 650MG DOSE (2X325MG) PO ONE (21:30)
[2017-08-13 21:51] VITALS: BP 109/58
[2017-08-13] MEDS ORDERED: GI COCKTAIL 50ML BTL(HYOSCYAMINE/MAALOX/LIDOCAINE VISCOUS)(1:3:1) PO ONE (23:15)
[2017-08-13] MEDS ORDERED: ONDANSETRON 4MG/2ML VIAL (J2405) IV ONE (23:30)
[2017-08-13] MEDS ORDERED: MORPHINE 4 MG/ML 1ML SYRINGE IV PRN (23:30)
[2017-08-14 00:36] VITALS: BP 122/59
[2017-08-14] MEDS ORDERED: NORCO 5/325MG TABLET (BULK FOR ED) PO ONE (01:15)
--- NOTE | 2017-08-14 06:37 | ECGEPIP ---
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
--- NOTE | 2017-08-14 10:03 | REP ---
Clinical: Chest pain . Comparison: 06/09/2017 . Technique: PA and lateral. Findings: The mediastinum and cardiac silhouette are normal. The lung gomez are clear and without acute consolidation, effusion, or pneumothorax. The skeletal structures are intact and normal. Impression: 1. No acute cardiopulmonary process. Signed by Beni Lewis MD 08/14/2017 09:54 A
== END 2017-08-14 01:25 | disposition home or self-care (01) ==
LOC: M ED 19:34
DX: R07.89 Other chest pain (principal); I50.9 Heart failure, unspecified; Z95.1 Presence of aortocoronary bypass graft; Z87.891 Personal history of nicotine dependence
CPT/HCPCS: 71020; 80048; 82550; 82553; 84484; 85025; 93005; 93041; 94760; 96374; 96375; 99285; J2405

== ENCOUNTER 2017-09-03 17:46 | Emergency (ER) | payer MEDICARE, OTHER ==
[~2017-09-03] VITALS: Ht 154.9 cm; Wt 100.0 kg
[2017-09-03 17:46] VITALS: BP 150/79
[~2017-09-03 17:46] MED LIST changes: +SUCR1TA PO
== END 2017-09-04 01:46 | disposition left against medical advice (07) ==
LOC: M ED 17:46
DX: R10.9 Unspecified abdominal pain (principal); Z53.21 Procedure and treatment not carried out due to patient leaving prior to being seen by health care provider

== ENCOUNTER 2017-09-25 10:17 | Emergency (ER) | payer MEDICARE, OTHER ==
[2017-09-25 12:24] LABS: BASO # 0.1 10^3/uL (0.0-0.2); BASO % 0.6 % (0.0-1.0); EOS # 0.1 10^3/uL (0.0-0.50); EOS % 1.4 % (0.0-3.0); IMMATURE GRANULOCYTE # 0.1 10^3/uL (0-0); IMMATURE GRANULOCYTE % 1.2 % (0-0); LYMPH # 2.3 10^3/uL (1.5-4.5); LYMPH % 26.8 % (24.0-44.0); MEAN CORPUSCULAR HGB CONC 32.5 g/dl (32.0-36.5); MONO # 0.5 10^3/uL (0.0-0.8); MONO % 5.6 % (0.0-5.0); NEUTROPHILS # 5.4 10^3/uL (1.8-7.7); NEUTROPHILS % 64.4 % (36.0-66.0); PLATELET COUNT, AUTOMATED 327 10^3/uL (150-450); RED CELL DISTRIBUTION WIDTH 15.5 % (11.5-14.5); WHITE BLOOD COUNT 8.4 10^3/uL (4.0-10.0)
[2017-09-25 12:39] LABS: ALBUMIN 3.7 GM/DL (3.2-5.2); ALBUMIN/GLOBULIN RATIO 0.97 (1.00-1.93); ALKALINE PHOSPHATASE 82 U/L (45-117); ALT/SGPT 20 U/L (12-78); ANION GAP 7 MEQ/L (8-16); AST/SGOT 16 U/L (7-37); BILIRUBIN,DIRECT < 0.1 MG/DL (0.0-0.2); BILIRUBIN,TOTAL 0.2 MG/DL (0.2-1.0); BLOOD UREA NITROGEN 12 MG/DL (7-18); CALCIUM LEVEL 8.4 MG/DL (8.5-10.1); CARBON DIOXIDE LEVEL 24 MEQ/L (21-32); CHLORIDE LEVEL 109 MEQ/L (98-107); CREATININE FOR GFR 0.92 MG/DL (0.55-1.02); GLOMERULAR FILTRATION RATE > 60.0 (>60); GLUCOSE, FASTING 90 MG/DL (70-105); POTASSIUM SERUM 3.9 MEQ/L (3.5-5.1); SODIUM LEVEL 140 MEQ/L (136-145); TOTAL PROTEIN 7.5 GM/DL (6.4-8.2)
[2017-09-25] MEDS ORDERED: ISOVUE-370 76% 100ML VIAL (Q9967) As Ordered (12:55)
[2017-09-25] MEDS: KETOROLAC 30 MG/ML VIAL (J1885) IV (13:43)
[2017-09-25] MEDS: PERCOCET 5MG/325MG TAB PO (14:08)
== END 2017-09-25 14:33 | disposition home or self-care (01) ==
LOC: M ED 10:17
DX: R07.9 Chest pain, unspecified (principal); R00.0 Tachycardia, unspecified; Z79.82 Long term (current) use of aspirin; Z79.899 Other long term (current) drug therapy; Z91.030 Bee allergy status; Z91.013 Allergy to seafood; Z91.89 Other specified personal risk factors, not elsewhere classified; Z88.8 Allergy status to other drugs, medicaments and biological substances
CPT/HCPCS: Q9967

== ENCOUNTER 2017-10-10 11:16 | Day surgery (SDC) | payer MEDICARE, OTHER ==
[2017-10-10] MEDS ORDERED: PROPOFOL 200 MG/20 ML VIAL As Ordered (14:25)
== END 2017-10-10 14:27 | disposition home or self-care (01) ==
LOC: M OPP 11:16
DX: R10.13 Epigastric pain (principal); D50.0 Iron deficiency anemia secondary to blood loss (chronic); K28.9 Gastrojejunal ulcer, unspecified as acute or chronic, without hemorrhage or perforation; I50.9 Heart failure, unspecified; R00.1 Bradycardia, unspecified; K58.9 Irritable bowel syndrome, unspecified; R60.0 Localized edema; F90.9 Attention-deficit hyperactivity disorder, unspecified type; F31.9 Bipolar disorder, unspecified; G43.909 Migraine, unspecified, not intractable, without status migrainosus; Z79.82 Long term (current) use of aspirin; Z79.899 Other long term (current) drug therapy; Z91.030 Bee allergy status; Z91.013 Allergy to seafood; Z91.048 Other nonmedicinal substance allergy status; Z88.8 Allergy status to other drugs, medicaments and biological substances; Z98.84 Bariatric surgery status
CPT/HCPCS: 43235

== ENCOUNTER 2017-10-11 07:37 | Emergency (ER) | payer MEDICARE, OTHER ==
[2017-10-11] MEDS: NS 1,000 ML IV (08:15)
[2017-10-11 08:33] LABS: BASO # 0.1 10^3/uL (0.0-0.2); BASO % 0.7 % (0.0-1.0); EOS # 0.1 10^3/uL (0.0-0.50); EOS % 1.4 % (0.0-3.0); HEMATOCRIT 34.2 % (36.0-47.0); HEMOGLOBIN 10.9 g/dl (12.0-16.0); IMMATURE GRANULOCYTE # 0.1 10^3/uL (0-0); IMMATURE GRANULOCYTE % 0.9 % (0-0); LYMPH # 2.2 10^3/uL (1.5-4.5); LYMPH % 23.5 % (24.0-44.0); MEAN CORPUSCULAR HEMOGLOBIN 25.2 pg (27.0-33.0); MEAN CORPUSCULAR HGB CONC 31.9 g/dl (32.0-36.5); MEAN CORPUSCULAR VOLUME 79.2 fl (80.0-96.0); MONO # 0.5 10^3/uL (0.0-0.8); NEUTROPHILS # 6.3 10^3/uL (1.8-7.7); NEUTROPHILS % 68.5 % (36.0-66.0); PLATELET COUNT, AUTOMATED 317 10^3/uL (150-450); RED BLOOD COUNT 4.32 10^6/uL (4.00-5.40); RED CELL DISTRIBUTION WIDTH 14.6 % (11.5-14.5); WHITE BLOOD COUNT 9.2 10^3/uL (4.0-10.0)
[2017-10-11] MEDS: PANTOPRAZOLE 40MG INJ (PROTONIX) (C9113) IV (08:33)
[2017-10-11] MEDS: MORPHINE 2 MG/ML 1ML SYRINGE IV ×2 (08:33→10:03)
[2017-10-11] MEDS: ONDANSETRON 4MG/2ML VIAL (J2405) IV (08:33)
[2017-10-11 08:38] LABS: KETONE, URINE AUTO RFX NEGATIVE (NEGATIVE); LEUKOCYTE ESTERASE UR AUTO RFX NEGATIVE (NEGATIVE); NITRITE, URINE AUTO RFX NEGATIVE (NEGATIVE); RBC, URINE AUTO RFX 1 /HPF (0-3); SPECIFIC GRAVITY UR AUTO RFX 1.015 (1.002-1.035); SQUAM EPITHELIAL CELL UR AURFX 1 /HPF (0-6); WBC, URINE AUTO RFX 0 /HPF (0-3)
[2017-10-11 08:43] LABS: INR 0.97
[2017-10-11 09:04] LABS: ALBUMIN 3.9 GM/DL (3.2-5.2); ALBUMIN/GLOBULIN RATIO 1.05 (1.00-1.93); ALKALINE PHOSPHATASE 86 U/L (45-117); ALT/SGPT 20 U/L (12-78); ANION GAP 9 MEQ/L (8-16); AST/SGOT 9 U/L (7-37); BILIRUBIN,DIRECT < 0.1 MG/DL (0.0-0.2); BILIRUBIN,TOTAL 0.2 MG/DL (0.2-1.0); BLOOD UREA NITROGEN 11 MG/DL (7-18); CALCIUM LEVEL 8.3 MG/DL (8.5-10.1); CARBON DIOXIDE LEVEL 21 MEQ/L (21-32); CHLORIDE LEVEL 112 MEQ/L (98-107); CREATININE FOR GFR 0.92 MG/DL (0.55-1.02); GLOMERULAR FILTRATION RATE > 60.0 (>60); GLUCOSE, FASTING 114 MG/DL (70-105); LIPASE 56 U/L (73-393); POTASSIUM SERUM 4.1 MEQ/L (3.5-5.1); SODIUM LEVEL 142 MEQ/L (136-145); TOTAL PROTEIN 7.6 GM/DL (6.4-8.2)
[2017-10-11] MEDS ORDERED: ISOVUE-370 76% 100ML VIAL (Q9967) As Ordered (09:16)
== END 2017-10-11 10:35 | disposition home or self-care (01) ==
LOC: M ED 07:37
DX: K28.9 Gastrojejunal ulcer, unspecified as acute or chronic, without hemorrhage or perforation (principal); Z95.0 Presence of cardiac pacemaker; R94.31 Abnormal electrocardiogram [ECG] [EKG]; I50.9 Heart failure, unspecified; I25.2 Old myocardial infarction; I10 Essential (primary) hypertension; E78.5 Hyperlipidemia, unspecified; G43.909 Migraine, unspecified, not intractable, without status migrainosus; J45.909 Unspecified asthma, uncomplicated; K58.9 Irritable bowel syndrome, unspecified; D64.9 Anemia, unspecified; M54.9 Dorsalgia, unspecified; F90.9 Attention-deficit hyperactivity disorder, unspecified type; F31.9 Bipolar disorder, unspecified; F20.9 Schizophrenia, unspecified; K21.9 Gastro-esophageal reflux disease without esophagitis; Z85.41 Personal history of malignant neoplasm of cervix uteri; Z98.84 Bariatric surgery status; Z98.61 Coronary angioplasty status; K27.9 Peptic ulcer, site unspecified, unspecified as acute or chronic, without hemorrhage or perforation; Z79.899 Other long term (current) drug therapy; Z91.030 Bee allergy status; Z91.013 Allergy to seafood; Z88.8 Allergy status to other drugs, medicaments and biological substances; Z91.89 Other specified personal risk factors, not elsewhere classified
CPT/HCPCS: C9113

== ENCOUNTER 2017-10-17 21:46 | Emergency (ER) | payer MEDICARE, OTHER ==
[2017-10-18] MEDS: OXYCODONE/APAP 5MG/325MG(BULK FOR ED) 1 TABLET PO (01:30)
[2017-10-18] MEDS: KETOROLAC 30 MG/ML VIAL (J1885) IV (01:30)
== END 2017-10-18 02:00 | disposition home or self-care (01) ==
LOC: M ED 10-18 02:00
DX: M25.532 Pain in left wrist (principal); M25.832 Other specified joint disorders, left wrist; I50.9 Heart failure, unspecified; I25.2 Old myocardial infarction; J45.909 Unspecified asthma, uncomplicated; K58.9 Irritable bowel syndrome, unspecified; F90.9 Attention-deficit hyperactivity disorder, unspecified type; F32.9 Major depressive disorder, single episode, unspecified; Z95.0 Presence of cardiac pacemaker; Z98.84 Bariatric surgery status; Z85.41 Personal history of malignant neoplasm of cervix uteri; F17.200 Nicotine dependence, unspecified, uncomplicated; Z79.899 Other long term (current) drug therapy; Z88.8 Allergy status to other drugs, medicaments and biological substances; Z91.013 Allergy to seafood; Z91.048 Other nonmedicinal substance allergy status
CPT/HCPCS: 73110

== ENCOUNTER 2017-11-17 08:15 | Emergency (ER) | payer MEDICARE, OTHER ==
[2017-11-17 09:33] LABS: HEMOGLOBIN 12.9 g/dl (12.0-16.0); MEAN CORPUSCULAR HEMOGLOBIN 27.5 pg (27.0-33.0); MEAN CORPUSCULAR HGB CONC 33.1 g/dl (32.0-36.5); MEAN CORPUSCULAR VOLUME 83.2 fl (80.0-96.0); PLATELET COUNT, AUTOMATED 251 10^3/uL (150-450); RED BLOOD COUNT 4.69 10^6/uL (4.00-5.40); RED CELL DISTRIBUTION WIDTH 17.4 % (11.5-14.5); WHITE BLOOD COUNT 9.1 10^3/uL (4.0-10.0)
[2017-11-17] MEDS: METOCLOPRAMIDE INJ 10MG/2ML VIAL (J2765) IV (09:33)
[2017-11-17] MEDS: KETOROLAC 30 MG/ML VIAL (J1885) IV (09:33)
[2017-11-17 10:08] LABS: ANION GAP 9 MEQ/L (8-16); BLOOD UREA NITROGEN 10 MG/DL (7-18); CALCIUM LEVEL 8.4 MG/DL (8.5-10.1); CARBON DIOXIDE LEVEL 25 MEQ/L (21-32); CHLORIDE LEVEL 109 MEQ/L (98-107); CREATININE FOR GFR 0.63 MG/DL (0.55-1.30); GLOMERULAR FILTRATION RATE > 60.0 (>60); GLUCOSE, FASTING 92 MG/DL (70-100); POTASSIUM SERUM 4.2 MEQ/L (3.5-5.1); SODIUM LEVEL 143 MEQ/L (136-145)
== END 2017-11-17 11:16 | disposition home or self-care (01) ==
LOC: M ED 08:15
DX: R55 Syncope and collapse (principal); I50.9 Heart failure, unspecified; G89.29 Other chronic pain; M54.2 Cervicalgia; F31.9 Bipolar disorder, unspecified; G43.909 Migraine, unspecified, not intractable, without status migrainosus; Z95.0 Presence of cardiac pacemaker; F19.10 Other psychoactive substance abuse, uncomplicated; Z79.899 Other long term (current) drug therapy; Z88.8 Allergy status to other drugs, medicaments and biological substances; Z91.013 Allergy to seafood; Z91.030 Bee allergy status; Z91.048 Other nonmedicinal substance allergy status
CPT/HCPCS: J1885

== ENCOUNTER 2017-11-19 15:20 | Emergency (ER) | payer MEDICARE, OTHER ==
[2017-11-19] MEDS: KETOROLAC 30 MG/ML VIAL (J1885) IV (16:20)
[2017-11-19] MEDS: diphenhydrAMINE INJ 50MG/ML VIAL (J1200) IV (16:20)
[2017-11-19] MEDS: PROMETHAZINE INJ 25 MG/ML VIAL (J2550) IV (16:30)
[2017-11-19] MEDS: ACETAMINOPHEN 325 MG TAB PO (16:44)
[2017-11-19] MEDS: MAGNESIUM OXIDE 400 MG TAB (MAG-OX) PO (16:44)
== END 2017-11-19 17:20 | disposition home or self-care (01) ==
LOC: M ED 15:20
DX: G43.909 Migraine, unspecified, not intractable, without status migrainosus (principal); Z79.899 Other long term (current) drug therapy; Z91.013 Allergy to seafood; Z91.030 Bee allergy status; Z91.89 Other specified personal risk factors, not elsewhere classified; Z88.8 Allergy status to other drugs, medicaments and biological substances
CPT/HCPCS: J1200

== ENCOUNTER 2017-12-04 13:11 | Emergency (ER) | payer MEDICARE, OTHER ==
[2017-12-04] MEDS: ASPIRIN 81 MG CHEW TABLET PO (13:45)
[2017-12-04 14:49] LABS: BASO # 0.1 10^3/uL (0.0-0.2); BASO % 0.7 % (0.0-1.0); EOS # 0.1 10^3/uL (0.0-0.50); EOS % 0.7 % (0.0-3.0); HEMATOCRIT 39.9 % (36.0-47.0); HEMOGLOBIN 13.5 g/dl (12.0-16.0); IMMATURE GRANULOCYTE % 0.5 % (0-3.0); LYMPH # 2.3 10^3/uL (1.5-4.5); LYMPH % 23.6 % (24.0-44.0); MEAN CORPUSCULAR HEMOGLOBIN 28.5 pg (27.0-33.0); MEAN CORPUSCULAR HGB CONC 33.8 g/dl (32.0-36.5); MEAN CORPUSCULAR VOLUME 84.2 fl (80.0-96.0); MONO # 0.6 10^3/uL (0.0-0.8); MONO % 5.6 % (0.0-5.0); NEUTROPHILS # 6.8 10^3/uL (1.8-7.7); NEUTROPHILS % 68.9 % (36.0-66.0); PLATELET COUNT, AUTOMATED 295 10^3/uL (150-450); RED BLOOD COUNT 4.74 10^6/uL (4.00-5.40); RED CELL DISTRIBUTION WIDTH 16.1 % (11.5-14.5); WHITE BLOOD COUNT 9.8 10^3/uL (4.0-10.0)
[2017-12-04 15:04] LABS: ALBUMIN 4.2 GM/DL (3.2-5.2); ALKALINE PHOSPHATASE 90 U/L (45-117); ALT/SGPT 23 U/L (12-78); ANION GAP 7 MEQ/L (8-16); AST/SGOT 14 U/L (7-37); BILIRUBIN,DIRECT 0.1 MG/DL (0.0-0.2); BILIRUBIN,TOTAL 0.6 MG/DL (0.2-1.0); BLOOD UREA NITROGEN 10 MG/DL (7-18); CALCIUM LEVEL 8.5 MG/DL (8.5-10.1); CARBON DIOXIDE LEVEL 24 MEQ/L (21-32); CHLORIDE LEVEL 106 MEQ/L (98-107); CK-MB VALUE MASS 1.6 NG/ML (0.0-3.6); CPK CREATINE PHOSPHOKINASE 158 U/L (26-192); GLOMERULAR FILTRATION RATE > 60.0 (>60); GLUCOSE, FASTING 93 MG/DL (70-100); LIPASE 45 U/L (73-393); MB/CK RELATIVE INDEX 1.01 (< OR =4); NT-PRO BNP 38 PG/ML (<125); POTASSIUM SERUM 3.5 MEQ/L (3.5-5.1); SODIUM LEVEL 137 MEQ/L (136-145); TOTAL PROTEIN 7.7 GM/DL (6.4-8.2); TROPONIN I < 0.02 NG/ML (< 0.10)
[2017-12-04] MEDS: KETOROLAC 30 MG/ML VIAL (J1885) IV (16:43)
== END 2017-12-04 16:58 | disposition home or self-care (01) ==
LOC: M ED 13:11
DX: R07.9 Chest pain, unspecified (principal); R94.31 Abnormal electrocardiogram [ECG] [EKG]; Z95.0 Presence of cardiac pacemaker; D64.9 Anemia, unspecified; G43.909 Migraine, unspecified, not intractable, without status migrainosus; R56.9 Unspecified convulsions; K21.9 Gastro-esophageal reflux disease without esophagitis; J45.909 Unspecified asthma, uncomplicated; F90.9 Attention-deficit hyperactivity disorder, unspecified type; F31.9 Bipolar disorder, unspecified; F20.9 Schizophrenia, unspecified; Z95.5 Presence of coronary angioplasty implant and graft; F17.200 Nicotine dependence, unspecified, uncomplicated; Z82.49 Family history of ischemic heart disease and other diseases of the circulatory system; Z79.82 Long term (current) use of aspirin; Z79.899 Other long term (current) drug therapy; Z91.030 Bee allergy status; Z91.013 Allergy to seafood; Z91.89 Other specified personal risk factors, not elsewhere classified; Z88.8 Allergy status to other drugs, medicaments and biological substances
CPT/HCPCS: J1885

== ENCOUNTER → 2017-12-11 | Outpatient (CLI) | payer MEDICARE, OTHER ==
[2017-12-11 14:35] LABS: BASO % 0.4 % (0.0-1.0); EOS # 0.1 10^3/uL (0.0-0.50); HEMATOCRIT 41.5 % (36.0-47.0); HEMOGLOBIN 13.6 g/dl (12.0-16.0); IMMATURE GRANULOCYTE # 0.1 10^3/uL (0-0); IMMATURE GRANULOCYTE % 0.6 % (0-3.0); LYMPH # 1.9 10^3/uL (1.5-4.5); LYMPH % 18.9 % (24.0-44.0); MEAN CORPUSCULAR HEMOGLOBIN 28.2 pg (27.0-33.0); MEAN CORPUSCULAR HGB CONC 32.8 g/dl (32.0-36.5); MEAN CORPUSCULAR VOLUME 85.9 fl (80.0-96.0); MONO # 0.5 10^3/uL (0.0-0.8); NEUTROPHILS # 7.3 10^3/uL (1.8-7.7); NEUTROPHILS % 74.1 % (36.0-66.0); PLATELET COUNT, AUTOMATED 263 10^3/uL (150-450); RED BLOOD COUNT 4.83 10^6/uL (4.00-5.40); RED CELL DISTRIBUTION WIDTH 15.7 % (11.5-14.5); RETIC HEMOGLOBIN EQUIVALENT 34.7 pg (24-36); RETICULOCYTE # 109.2 10^9/L (17-77); RETICULOCYTE % 2.3 % (0.5-1.5); WHITE BLOOD COUNT 9.9 10^3/uL (4.0-10.0)
[2017-12-11 15:06] LABS: FERRITIN 132 NG/ML (8-252); IRON (FE) 66 UG/DL (50-170); PERCENT SATURATION 19.2 % (13.2-45.0); TOTAL IRON BINDING CAPACITY 344 UG/DL (250-450)
== END ==
LOC: M LAB 13:25
DX: D50.9 Iron deficiency anemia, unspecified (principal)
CPT/HCPCS: 83550

== ENCOUNTER → 2017-12-21 | Outpatient (REF) | payer MEDICARE, OTHER ==
[2017-12-21 16:01] LABS: BASO # 0.1 10^3/uL (0.0-0.2); BASO % 0.5 % (0.0-1.0); EOS # 0.1 10^3/uL (0.0-0.50); HEMATOCRIT 39.1 % (36.0-47.0); HEMOGLOBIN 13.1 g/dl (12.0-16.0); IMMATURE GRANULOCYTE % 0.5 % (0-3.0); LYMPH # 2.4 10^3/uL (1.5-4.5); LYMPH % 21.9 % (24.0-44.0); MEAN CORPUSCULAR HGB CONC 33.5 g/dl (32.0-36.5); MEAN CORPUSCULAR VOLUME 86.5 fl (80.0-96.0); MONO # 0.5 10^3/uL (0.0-0.8); MONO % 4.8 % (0.0-5.0); NEUTROPHILS # 7.7 10^3/uL (1.8-7.7); NEUTROPHILS % 71.3 % (36.0-66.0); PLATELET COUNT, AUTOMATED 310 10^3/uL (150-450); RED BLOOD COUNT 4.52 10^6/uL (4.00-5.40); RED CELL DISTRIBUTION WIDTH 15.5 % (11.5-14.5); WHITE BLOOD COUNT 10.8 10^3/uL (4.0-10.0)
[2017-12-21 16:41] LABS: RHEUMATOID FACTOR QUANT < 10.0 IU/ML (<15.0)
[2017-12-21 16:41] LABS: C REACTIVE PROTEIN QUANTITATIV < 0.30 MG/DL (0.00-0.30)
[2017-12-21 17:59] LABS: ERYTHROCYTE SEDIMENTATION RATE 17 mm/hr (0-20)
[2017-12-25 00:07] LABS: ANTINUCLEAR ANTIBODIES DIRECT Negative (Negative); Lyme Disease IgG/IgM Antibodie <0.91 ISR (0.00-0.90); Lyme Disease IgM Ab Quantitati <0.80 index (0.00-0.79)
== END ==
LOC: M LABDRAW1 14:14
DX: M67.432 Ganglion, left wrist (principal)
CPT/HCPCS: 86140

== ENCOUNTER → 2018-01-02 | Outpatient (CLI) | payer MEDICARE, OTHER ==
[2018-01-02 16:41] LABS: HEMATOCRIT 44.3 % (36.0-47.0); HEMOGLOBIN 15.1 g/dl (12.0-15.5)
== END ==
LOC: M LAB 16:02
DX: Z01.812 Encounter for preprocedural laboratory examination (principal); Z79.899 Other long term (current) drug therapy; E53.8 Deficiency of other specified B group vitamins; R22.32 Localized swelling, mass and lump, left upper limb
CPT/HCPCS: 85014

== ENCOUNTER → 2018-01-10 | Outpatient (REF) | payer MEDICARE, OTHER | LOC: M LAB REF 13:16 | DX: M67.432 Ganglion, left wrist (principal) | CPT/HCPCS: 88304 ==

== ENCOUNTER 2018-01-14 15:47 | Inpatient (IN) | payer MEDICARE, OTHER ==
[2018-01-14 17:10] LABS: BASO # 0.1 10^3/uL (0.0-0.2); BASO % 0.5 % (0.0-1.0); EOS # 0.2 10^3/uL (0.0-0.50); EOS % 1.5 % (0.0-3.0); HEMATOCRIT 41.5 % (36.0-47.0); HEMOGLOBIN 14.4 g/dl (12.0-15.5); IMMATURE GRANULOCYTE % 1.2 % (0-3.0); LYMPH # 2.9 10^3/uL (1.5-4.5); LYMPH % 22.7 % (24.0-44.0); MEAN CORPUSCULAR HEMOGLOBIN 29.9 pg (27.0-33.0); MEAN CORPUSCULAR HGB CONC 34.7 g/dl (32.0-36.5); MEAN CORPUSCULAR VOLUME 86.3 fl (80.0-96.0); MONO # 0.5 10^3/uL (0.0-0.8); MONO % 4.2 % (0.0-5.0); NEUTROPHILS % 69.9 % (36.0-66.0); PLATELET COUNT, AUTOMATED 293 10^3/uL (150-450); RED BLOOD COUNT 4.81 10^6/uL (4.00-5.40); RED CELL DISTRIBUTION WIDTH 14.2 % (11.5-14.5); WHITE BLOOD COUNT 12.9 10^3/uL (4.0-10.0)
[2018-01-14 17:16] LABS: INR 0.96; PROTHROMBIN TIME 12.8 SECONDS (12.4-14.5)
[2018-01-14 17:17] LABS: PARTIAL THROMBOPLASTIN TIME 29.1 SECONDS (26.8-37.9)
[2018-01-14 17:21] LABS: ANION GAP 7 MEQ/L (8-16); BLOOD UREA NITROGEN 11 MG/DL (7-18); CARBON DIOXIDE LEVEL 24 MEQ/L (21-32); CHLORIDE LEVEL 109 MEQ/L (98-107); CK-MB VALUE MASS < 1.0 NG/ML (<3.6); CPK CREATINE PHOSPHOKINASE 247 U/L (26-192); CREATININE FOR GFR 0.72 MG/DL (0.55-1.30); GLOMERULAR FILTRATION RATE > 60.0 (>60); GLUCOSE, FASTING 140 MG/DL (70-100); POTASSIUM SERUM 3.8 MEQ/L (3.5-5.1); SODIUM LEVEL 140 MEQ/L (136-145); TROPONIN I < 0.02 NG/ML (< 0.10)
[2018-01-14] MEDS: methylPREDNISolone INJ 125 MG/2 ML VIAL (J2930) IV (17:32)
[2018-01-14] MEDS: diphenhydrAMINE INJ 50MG/ML VIAL (J1200) IV (17:32)
[2018-01-14] MEDS: FAMOTIDINE INJ 20MG/2ML VIAL (S0028) IVP (17:33)
[2018-01-14] MEDS: KETOROLAC 30 MG/ML VIAL (J1885) IV ×2 (18:41→23:39)
[2018-01-14] MEDS ORDERED: ISOVUE-370 76% 100ML VIAL (Q9967) As Ordered (21:35)
[2018-01-14] MEDS: AMITRIPTYLINE 50 MG TAB PO (22:08)
[2018-01-14] MEDS: ZONISAMIDE 50 MG CAP (ZONEGRAN) PO (22:08)
[2018-01-14] MEDS: AMITRIPTYLINE 25 MG TAB PO (22:08)
[2018-01-14] MEDS: ACETAMINOPHEN TAB 650MG DOSE (2X325MG) PO (22:55)
[2018-01-15 06:54] LABS: HEMOGLOBIN 13.6 g/dl (12.0-15.5); MEAN CORPUSCULAR HEMOGLOBIN 28.8 pg (27.0-33.0); MEAN CORPUSCULAR VOLUME 84.6 fl (80.0-96.0); PLATELET COUNT, AUTOMATED 274 10^3/uL (150-450); RED BLOOD COUNT 4.73 10^6/uL (4.00-5.40); RED CELL DISTRIBUTION WIDTH 13.8 % (11.5-14.5)
[2018-01-15 07:11] LABS: ANION GAP 7 MEQ/L (8-16); BLOOD UREA NITROGEN 13 MG/DL (7-18); CARBON DIOXIDE LEVEL 21 MEQ/L (21-32); CHLORIDE LEVEL 111 MEQ/L (98-107); CREATININE FOR GFR 0.85 MG/DL (0.55-1.30); GLOMERULAR FILTRATION RATE > 60.0 (>60); GLUCOSE, FASTING 197 MG/DL (70-100); POTASSIUM SERUM 4.4 MEQ/L (3.5-5.1); SODIUM LEVEL 139 MEQ/L (136-145)
[2018-01-15] MEDS: ADDERALL 5 MG TAB PO (08:03)
[2018-01-15] MEDS: PANTOPRAZOLE 20 MG TAB PO (08:03)
[2018-01-15] MEDS: SENOKOT S TAB PO ×2 (08:03→20:43)
[2018-01-15] MEDS: ACETAMINOPHEN TAB 650MG DOSE (2X325MG) PO (12:49)
[2018-01-15] MEDS: SUMAtriptan SUCCINATE 25 MG TAB PO (15:34)
[2018-01-15] MEDS: NAPROXEN 250 MG TAB PO (15:34)
[2018-01-15] MEDS ORDERED: SLF 3 ML SYR IV (16:15)
[2018-01-15] MEDS: ONDANSETRON 4 MG TAB (S0181) PO (19:28)
[2018-01-15] MEDS: diphenhydrAMINE 50 MG CAP PO (19:29)
[2018-01-15] MEDS: KETOROLAC TROMETHAMINE 10 MG TAB PO (19:30)
[2018-01-15] MEDS: AMITRIPTYLINE 25 MG TAB PO (20:42)
[2018-01-15] MEDS: ZONISAMIDE 100 MG CAP (ZONEGRAN) PO (20:42)
[2018-01-15] MEDS: AMITRIPTYLINE 50 MG TAB PO (20:43)
[2018-01-15] MEDS: SLF 3 ML SYR IV (22:00)
[2018-01-16 05:32] LABS: HEMOGLOBIN 12.6 g/dl (12.0-15.5); MEAN CORPUSCULAR HEMOGLOBIN 28.8 pg (27.0-33.0); MEAN CORPUSCULAR HGB CONC 33.2 g/dl (32.0-36.5); MEAN CORPUSCULAR VOLUME 86.8 fl (80.0-96.0); PLATELET COUNT, AUTOMATED 237 10^3/uL (150-450); RED BLOOD COUNT 4.38 10^6/uL (4.00-5.40); RED CELL DISTRIBUTION WIDTH 14.6 % (11.5-14.5); WHITE BLOOD COUNT 14.6 10^3/uL (4.0-10.0)
[2018-01-16 05:48] LABS: ANION GAP 7 MEQ/L (8-16); BLOOD UREA NITROGEN 18 MG/DL (7-18); CALCIUM LEVEL 8.2 MG/DL (8.5-10.1); CARBON DIOXIDE LEVEL 24 MEQ/L (21-32); CHLORIDE LEVEL 113 MEQ/L (98-107); CREATININE FOR GFR 0.84 MG/DL (0.55-1.30); GLOMERULAR FILTRATION RATE > 60.0 (>60); GLUCOSE, FASTING 111 MG/DL (70-100); POTASSIUM SERUM 3.8 MEQ/L (3.5-5.1); SODIUM LEVEL 144 MEQ/L (136-145)
[2018-01-16] MEDS: diphenhydrAMINE 50 MG CAP PO (06:00)
[2018-01-16] MEDS: KETOROLAC TROMETHAMINE 10 MG TAB PO (06:00)
[2018-01-16] MEDS: SLF 3 ML SYR IV ×3 (06:00→19:51)
[2018-01-16] MEDS: PANTOPRAZOLE 20 MG TAB PO (08:44)
[2018-01-16] MEDS: ONDANSETRON 4 MG TAB (S0181) PO (08:44)
[2018-01-16] MEDS: ADDERALL 5 MG TAB PO (08:45)
[2018-01-16] MEDS: SENOKOT S TAB PO ×2 (08:48→19:50)
[2018-01-16] MEDS: ACETAMINOPHEN TAB 650MG DOSE (2X325MG) PO (11:28)
[2018-01-16] MEDS: predniSONE 20 MG TAB PO (14:11)
[2018-01-16] MEDS: KETOROLAC 30 MG/ML VIAL (J1885) IV (14:11)
[2018-01-16] MEDS: methylPREDNISolone INJ 125 MG/2 ML VIAL (J2930) IV (14:12)
[2018-01-16] MEDS: diphenhydrAMINE INJ 50MG/ML VIAL (J1200) IM (14:13)
[2018-01-16] MEDS: diphenhydrAMINE INJ 50MG/ML VIAL (J1200) IV (14:55)
[2018-01-16] MEDS: FAMOTIDINE INJ 20MG/2ML VIAL (S0028) IVP (15:24)
[2018-01-16] MEDS: ZONISAMIDE 100 MG CAP (ZONEGRAN) PO (19:50)
[2018-01-16] MEDS: AMITRIPTYLINE 50 MG TAB PO (19:50)
[2018-01-16] MEDS: AMITRIPTYLINE 25 MG TAB PO (19:51)
[2018-01-17 00:08] LABS: Lyme Disease IgG/IgM Antibodie <0.91 ISR (0.00-0.90); Lyme Disease IgM Ab Quantitati <0.80 index (0.00-0.79)
[2018-01-17 05:37] LABS: HEMATOCRIT 40.6 % (36.0-47.0); HEMOGLOBIN 13.6 g/dl (12.0-15.5); MEAN CORPUSCULAR HEMOGLOBIN 28.9 pg (27.0-33.0); MEAN CORPUSCULAR HGB CONC 33.5 g/dl (32.0-36.5); MEAN CORPUSCULAR VOLUME 86.2 fl (80.0-96.0); PLATELET COUNT, AUTOMATED 285 10^3/uL (150-450); RED BLOOD COUNT 4.71 10^6/uL (4.00-5.40); RED CELL DISTRIBUTION WIDTH 14.1 % (11.5-14.5); WHITE BLOOD COUNT 18.5 10^3/uL (4.0-10.0)
[2018-01-17 05:54] LABS: ANION GAP 11 MEQ/L (8-16); BLOOD UREA NITROGEN 15 MG/DL (7-18); CALCIUM LEVEL 8.2 MG/DL (8.5-10.1); CARBON DIOXIDE LEVEL 16 MEQ/L (21-32); CHLORIDE LEVEL 113 MEQ/L (98-107); CREATININE FOR GFR 1.02 MG/DL (0.55-1.30); GLOMERULAR FILTRATION RATE > 60.0 (>60); GLUCOSE, FASTING 216 MG/DL (70-100); POTASSIUM SERUM 3.7 MEQ/L (3.5-5.1); SODIUM LEVEL 140 MEQ/L (136-145)
[2018-01-17] MEDS: SLF 3 ML SYR IV (06:06)
[2018-01-17] MEDS: predniSONE 20 MG TAB PO (08:45)
[2018-01-17] MEDS: ADDERALL 5 MG TAB PO (08:45)
[2018-01-17] MEDS: PANTOPRAZOLE 20 MG TAB PO (08:45)
[2018-01-17] MEDS: SENOKOT S TAB PO (08:45)
== END 2018-01-17 09:17 | disposition home or self-care (01) | DRG 103 ==
LOC: M PCU 01-15 14:34 → M ED 15:47 → M ED INP 19:23
DX: G43.101 Migraine with aura, not intractable, with status migrainosus (principal); R20.0 Anesthesia of skin; H53.8 Other visual disturbances; I67.1 Cerebral aneurysm, nonruptured; K21.9 Gastro-esophageal reflux disease without esophagitis; Z95.0 Presence of cardiac pacemaker; Z79.899 Other long term (current) drug therapy; Z91.013 Allergy to seafood; Z91.038 Other insect allergy status; Z88.8 Allergy status to other drugs, medicaments and biological substances; Z98.84 Bariatric surgery status; G40.909 Epilepsy, unspecified, not intractable, without status epilepticus

== ENCOUNTER 2018-02-07 16:27 | Inpatient (IN) | payer MEDICARE, OTHER ==
[2018-02-07] MEDS: ASPIRIN 81 MG CHEW TABLET PO (17:22)
[2018-02-07] MEDS: NITROGLYCERIN 0.4 MG SUBL TABLET SL ×2 (17:22→17:33)
[2018-02-07 17:27] LABS: BASO % 0.4 % (0.0-1.0); EOS # 0.1 10^3/uL (0.0-0.50); EOS % 1.2 % (0.0-3.0); HEMATOCRIT 38.3 % (36.0-47.0); HEMOGLOBIN 13.6 g/dl (12.0-15.5); IMMATURE GRANULOCYTE % 0.4 % (0-3.0); LYMPH # 2.2 10^3/uL (1.5-4.5); LYMPH % 21.4 % (24.0-44.0); MEAN CORPUSCULAR HEMOGLOBIN 30.2 pg (27.0-33.0); MEAN CORPUSCULAR HGB CONC 35.5 g/dl (32.0-36.5); MEAN CORPUSCULAR VOLUME 84.9 fl (80.0-96.0); MONO # 0.5 10^3/uL (0.0-0.8); NEUTROPHILS # 7.2 10^3/uL (1.8-7.7); NEUTROPHILS % 71.6 % (36.0-66.0); PLATELET COUNT, AUTOMATED 322 10^3/uL (150-450); RED BLOOD COUNT 4.51 10^6/uL (4.00-5.40)
[2018-02-07 17:36] LABS: INR 0.97
[2018-02-07 17:37] LABS: PARTIAL THROMBOPLASTIN TIME 30.6 SECONDS (26.8-37.9)
[2018-02-07 17:47] LABS: ALKALINE PHOSPHATASE 114 U/L (45-117); ALT/SGPT 111 U/L (12-78); AST/SGOT 72 U/L (7-37); BILIRUBIN,DIRECT 0.1 MG/DL (0.0-0.2); BILIRUBIN,TOTAL 0.5 MG/DL (0.2-1.0); BLOOD UREA NITROGEN 10 MG/DL (7-18); CALCIUM LEVEL 8.8 MG/DL (8.5-10.1); CARBON DIOXIDE LEVEL 24 MEQ/L (21-32); CHLORIDE LEVEL 110 MEQ/L (98-107); CREATININE FOR GFR 0.73 MG/DL (0.55-1.30); GLUCOSE, FASTING 112 MG/DL (70-100); LIPASE 45 U/L (73-393); MAGNESIUM LEVEL 2.5 MG/DL (1.8-2.4); POTASSIUM SERUM 3.5 MEQ/L (3.5-5.1); TOTAL PROTEIN 7.7 GM/DL (6.4-8.2); TROPONIN I < 0.02 NG/ML (< 0.10)
[2018-02-07 17:58] LABS: CK-MB VALUE MASS 1.2 NG/ML (<3.6); CPK CREATINE PHOSPHOKINASE 1770 U/L (26-192); FREE T4 1.16 NG/DL (0.76-1.46); MB/CK RELATIVE INDEX 0.06 (< OR =4)
[2018-02-07] MEDS ORDERED: ISOVUE-370 76% 100ML VIAL (Q9967) As Ordered (18:05)
[2018-02-07] MEDS: NS 1,000 ML IV (18:06)
[2018-02-07 18:33] LABS: ANION GAP 6 MEQ/L (8-16); SODIUM LEVEL 140 MEQ/L (136-145)
[2018-02-07 18:34] LABS: ALBUMIN 4.2 GM/DL (3.2-5.2)
[2018-02-07] MEDS ORDERED: diphenhydrAMINE 25 MG CAP PO (20:15)
[2018-02-07] MEDS ORDERED: NS 1,000 ML IV (20:18)
[2018-02-07] MEDS ORDERED: AMITRIPTYLINE 50 MG TAB PO (21:00)
[2018-02-07] MEDS: ZONISAMIDE 100 MG CAP (ZONEGRAN) PO (21:13)
[2018-02-07 21:42] LABS: APPEARANCE, URINE CLEAR (CLEAR); BACTERIA, URINE AUTO 1+ (NEGATIVE); BILIRUBIN, URINE AUTO NEGATIVE (NEGATIVE); BLOOD, URINE BLOOD NEGATIVE (NEGATIVE); COLOR, URINE YELLOW (YELLOW); GLUCOSE, URINE (UA) AUTO NEGATIVE (NEGATIVE); KETONE, URINE AUTO 1+ mg/dL (NEGATIVE); LEUKOCYTE ESTERASE, URINE AUTO NEGATIVE (NEGATIVE); NITRITE, URINE AUTO NEGATIVE (NEGATIVE); PROTEIN, URINE AUTO NEGATIVE (NEGATIVE); RBC, URINE AUTO 2 /HPF (0-3); SQUAMOUS EPITHELIAL CELL UR AU 4 /HPF (0-6); WBC, URINE AUTO 1 /HPF (0-3)
[2018-02-07 21:46] LABS: SPECIFIC GRAVITY URINE AUTO >1.060 (1.002-1.035)
[2018-02-07 21:46] LABS: MYOGLOBIN SCREEN, URINE NEGATIVE (NEGATIVE)
[2018-02-08 00:40] LABS: TROPONIN I < 0.02 NG/ML (< 0.10)
[2018-02-08 00:41] LABS: CK-MB VALUE MASS 2.4 NG/ML (<3.6)
[2018-02-08 01:08] LABS: CPK CREATINE PHOSPHOKINASE 133 U/L (26-192)
[2018-02-08] MEDS: AMITRIPTYLINE 50 MG TAB PO ×2 (01:19→21:32)
[2018-02-08] MEDS: NS 1,000 ML IV ×4 (01:23→18:19)
[2018-02-08 02:25] LABS: TROPONIN I < 0.02 NG/ML (< 0.10)
[2018-02-08 02:36] LABS: CK-MB VALUE MASS 1.5 NG/ML (<3.6); CPK CREATINE PHOSPHOKINASE 1826 U/L (26-192); MB/CK RELATIVE INDEX 0.08 (< OR =4)
[2018-02-08 06:55] LABS: BASO % 0.4 % (0.0-1.0); EOS # 0.2 10^3/uL (0.0-0.50); EOS % 2.1 % (0.0-3.0); HEMATOCRIT 34.6 % (36.0-47.0); HEMOGLOBIN 11.7 g/dl (12.0-15.5); IMMATURE GRANULOCYTE % 0.6 % (0-3.0); LYMPH % 27.7 % (24.0-44.0); MEAN CORPUSCULAR HEMOGLOBIN 29.8 pg (27.0-33.0); MEAN CORPUSCULAR HGB CONC 33.8 g/dl (32.0-36.5); MEAN CORPUSCULAR VOLUME 88.3 fl (80.0-96.0); MONO # 0.4 10^3/uL (0.0-0.8); MONO % 5.9 % (0.0-5.0); NEUTROPHILS # 4.6 10^3/uL (1.8-7.7); NEUTROPHILS % 63.3 % (36.0-66.0); PLATELET COUNT, AUTOMATED 274 10^3/uL (150-450); RED BLOOD COUNT 3.92 10^6/uL (4.00-5.40); WHITE BLOOD COUNT 7.2 10^3/uL (4.0-10.0)
[2018-02-08 07:18] LABS: ALKALINE PHOSPHATASE 95 U/L (45-117); ALT/SGPT 80 U/L (12-78); AST/SGOT 45 U/L (7-37); BILIRUBIN,TOTAL 0.6 MG/DL (0.2-1.0); BLOOD UREA NITROGEN 6 MG/DL (7-18); CALCIUM LEVEL 7.8 MG/DL (8.5-10.1); CARBON DIOXIDE LEVEL 22 MEQ/L (21-32); CHLORIDE LEVEL 115 MEQ/L (98-107); CREATININE FOR GFR 0.71 MG/DL (0.55-1.30); GLUCOSE, FASTING 82 MG/DL (70-100); MAGNESIUM LEVEL 2.4 MG/DL (1.8-2.4); POTASSIUM SERUM 3.8 MEQ/L (3.5-5.1); TOTAL PROTEIN 6.5 GM/DL (6.4-8.2); TROPONIN I < 0.02 NG/ML (< 0.10)
[2018-02-08 07:26] LABS: CK-MB VALUE MASS 1.1 NG/ML (<3.6); CPK CREATINE PHOSPHOKINASE 1483 U/L (26-192); MB/CK RELATIVE INDEX 0.07 (< OR =4)
[2018-02-08 07:42] LABS: ALBUMIN 3.4 GM/DL (3.2-5.2); ANION GAP 8 MEQ/L (8-16); SODIUM LEVEL 145 MEQ/L (136-145)
[2018-02-08] MEDS: ENOXAPARIN 40 MG/0.4 ML SYRINGE (J1650) SC (08:53)
[2018-02-08] MEDS: PANTOPRAZOLE 40MG TAB (PROTONIX) PO (08:53)
[2018-02-08] MEDS: ADDERALL 5 MG TAB PO (08:53)
[2018-02-08] MEDS ORDERED: E-Z-PAQUE 96% w/w SUSP 176GM BTL As Ordered (11:36)
[2018-02-08] MEDS ORDERED: E-Z-GAS II EFFERVESCENT PACKET (SODIUM BICARB./CITRIC ACID/SIMETHICONE) As Ordered (11:36)
[2018-02-08] MEDS ORDERED: E-Z-HD 98% w/w 340GM SUSP BTL As Ordered (11:37)
[2018-02-08] MEDS: ACETAMINOPHEN 325 MG TAB PO (14:04)
[2018-02-08] MEDS: ZONISAMIDE 100 MG CAP (ZONEGRAN) PO (21:32)
[2018-02-09] MEDS: NS 1,000 ML IV (00:24)
[2018-02-09 05:27] LABS: BASO % 0.5 % (0.0-1.0); EOS # 0.1 10^3/uL (0.0-0.50); HEMATOCRIT 33.5 % (36.0-47.0); HEMOGLOBIN 11.2 g/dl (12.0-15.5); IMMATURE GRANULOCYTE % 0.5 % (0-3.0); LYMPH % 33.8 % (24.0-44.0); MEAN CORPUSCULAR HEMOGLOBIN 29.6 pg (27.0-33.0); MEAN CORPUSCULAR HGB CONC 33.4 g/dl (32.0-36.5); MEAN CORPUSCULAR VOLUME 88.4 fl (80.0-96.0); MONO # 0.3 10^3/uL (0.0-0.8); MONO % 4.6 % (0.0-5.0); NEUTROPHILS # 3.5 10^3/uL (1.8-7.7); NEUTROPHILS % 58.6 % (36.0-66.0); PLATELET COUNT, AUTOMATED 261 10^3/uL (150-450); RED BLOOD COUNT 3.79 10^6/uL (4.00-5.40); WHITE BLOOD COUNT 5.9 10^3/uL (4.0-10.0)
[2018-02-09 05:52] LABS: ALBUMIN 3.1 GM/DL (3.2-5.2); ALBUMIN/GLOBULIN RATIO 0.97 (1.00-1.93); ALKALINE PHOSPHATASE 90 U/L (45-117); ALT/SGPT 59 U/L (12-78); ANION GAP 6 MEQ/L (8-16); AST/SGOT 26 U/L (7-37); BILIRUBIN,TOTAL 0.3 MG/DL (0.2-1.0); BLOOD UREA NITROGEN 6 MG/DL (7-18); CALCIUM LEVEL 7.6 MG/DL (8.5-10.1); CARBON DIOXIDE LEVEL 22 MEQ/L (21-32); CHLORIDE LEVEL 116 MEQ/L (98-107); CPK CREATINE PHOSPHOKINASE 1003 U/L (26-192); CREATININE FOR GFR 0.78 MG/DL (0.55-1.30); GLOMERULAR FILTRATION RATE > 60.0 (>60); GLUCOSE, FASTING 88 MG/DL (70-100); MAGNESIUM LEVEL 2.3 MG/DL (1.8-2.4); SODIUM LEVEL 144 MEQ/L (136-145); TOTAL PROTEIN 6.3 GM/DL (6.4-8.2)
[2018-02-09] MEDS: PANTOPRAZOLE 40MG TAB (PROTONIX) PO (10:12)
[2018-02-09] MEDS: ADDERALL 5 MG TAB PO (10:13)
[2018-02-09] MEDS: ENOXAPARIN 40 MG/0.4 ML SYRINGE (J1650) SC (10:13)
[2018-02-09] MEDS: KETOROLAC TROMETHAMINE 10 MG TAB PO (10:14)
[2018-02-09] MEDS ORDERED: diphenhydrAMINE 50 MG CAP PO (16:49)
[2018-02-09] MEDS: MORPHINE 4 MG/ML 1ML VIAL/SYRINGE (J2270) IV (16:59)
[2018-02-09] MEDS: AMITRIPTYLINE 50 MG TAB PO (21:17)
[2018-02-09] MEDS: ZONISAMIDE 100 MG CAP (ZONEGRAN) PO (21:18)
[2018-02-10] MEDS: MORPHINE 4 MG/ML 1ML VIAL/SYRINGE (J2270) IV ×2 (00:04→16:16)
[2018-02-10 05:35] LABS: BASO # 0.1 10^3/uL (0.0-0.2); BASO % 0.7 % (0.0-1.0); EOS # 0.2 10^3/uL (0.0-0.50); EOS % 2.6 % (0.0-3.0); HEMATOCRIT 36.2 % (36.0-47.0); HEMOGLOBIN 12.5 g/dl (12.0-15.5); IMMATURE GRANULOCYTE % 0.4 % (0-3.0); LYMPH # 2.1 10^3/uL (1.5-4.5); LYMPH % 30.2 % (24.0-44.0); MEAN CORPUSCULAR HGB CONC 34.5 g/dl (32.0-36.5); MEAN CORPUSCULAR VOLUME 86.8 fl (80.0-96.0); MONO # 0.3 10^3/uL (0.0-0.8); MONO % 4.7 % (0.0-5.0); NEUTROPHILS # 4.2 10^3/uL (1.8-7.7); NEUTROPHILS % 61.4 % (36.0-66.0); PLATELET COUNT, AUTOMATED 287 10^3/uL (150-450); RED BLOOD COUNT 4.17 10^6/uL (4.00-5.40); WHITE BLOOD COUNT 6.8 10^3/uL (4.0-10.0)
[2018-02-10 05:52] LABS: ALBUMIN 3.5 GM/DL (3.2-5.2); ALBUMIN/GLOBULIN RATIO 1.06 (1.00-1.93); ALKALINE PHOSPHATASE 97 U/L (45-117); ALT/SGPT 47 U/L (12-78); ANION GAP 7 MEQ/L (8-16); AST/SGOT 21 U/L (7-37); BILIRUBIN,TOTAL 0.3 MG/DL (0.2-1.0); BLOOD UREA NITROGEN 7 MG/DL (7-18); CALCIUM LEVEL 8.2 MG/DL (8.5-10.1); CARBON DIOXIDE LEVEL 21 MEQ/L (21-32); CHLORIDE LEVEL 115 MEQ/L (98-107); CPK CREATINE PHOSPHOKINASE 578 U/L (26-192); CREATININE FOR GFR 0.85 MG/DL (0.55-1.30); GLOMERULAR FILTRATION RATE > 60.0 (>60); GLUCOSE, FASTING 104 MG/DL (70-100); MAGNESIUM LEVEL 2.3 MG/DL (1.8-2.4); POTASSIUM SERUM 3.7 MEQ/L (3.5-5.1); SODIUM LEVEL 143 MEQ/L (136-145); TOTAL PROTEIN 6.8 GM/DL (6.4-8.2)
[2018-02-10] MEDS: ADDERALL 5 MG TAB PO (09:15)
[2018-02-10] MEDS: ENOXAPARIN 40 MG/0.4 ML SYRINGE (J1650) SC (09:16)
[2018-02-10] MEDS: PANTOPRAZOLE 40MG TAB (PROTONIX) PO (09:16)
[2018-02-10] MEDS: KETOROLAC TROMETHAMINE 10 MG TAB PO (11:27)
[2018-02-10] MEDS: PANTOPRAZOLE SODIUM 40 MG in D5W 50 ML IV ×2 (14:57→20:19)
[2018-02-10] MEDS: AMITRIPTYLINE 50 MG TAB PO (21:30)
[2018-02-10] MEDS: ZONISAMIDE 100 MG CAP (ZONEGRAN) PO (21:30)
[2018-02-11] MEDS: PANTOPRAZOLE SODIUM 40 MG in D5W 50 ML IV (00:14)
[2018-02-11 05:22] LABS: BASO % 0.4 % (0.0-1.0); EOS # 0.2 10^3/uL (0.0-0.50); EOS % 2.6 % (0.0-3.0); HEMATOCRIT 37.6 % (36.0-47.0); HEMOGLOBIN 12.8 g/dl (12.0-15.5); IMMATURE GRANULOCYTE % 0.7 % (0-3.0); LYMPH # 2.5 10^3/uL (1.5-4.5); LYMPH % 34.6 % (24.0-44.0); MEAN CORPUSCULAR HEMOGLOBIN 29.7 pg (27.0-33.0); MEAN CORPUSCULAR VOLUME 87.2 fl (80.0-96.0); MONO # 0.4 10^3/uL (0.0-0.8); MONO % 5.6 % (0.0-5.0); NEUTROPHILS % 56.1 % (36.0-66.0); PLATELET COUNT, AUTOMATED 286 10^3/uL (150-450); RED BLOOD COUNT 4.31 10^6/uL (4.00-5.40); RED CELL DISTRIBUTION WIDTH 12.8 % (11.5-14.5); WHITE BLOOD COUNT 7.2 10^3/uL (4.0-10.0)
[2018-02-11 05:43] LABS: ALBUMIN 3.5 GM/DL (3.2-5.2); ALBUMIN/GLOBULIN RATIO 0.97 (1.00-1.93); ALKALINE PHOSPHATASE 94 U/L (45-117); ALT/SGPT 43 U/L (12-78); ANION GAP 7 MEQ/L (8-16); AST/SGOT 19 U/L (7-37); BILIRUBIN,TOTAL 0.4 MG/DL (0.2-1.0); BLOOD UREA NITROGEN 8 MG/DL (7-18); CALCIUM LEVEL 8.5 MG/DL (8.5-10.1); CARBON DIOXIDE LEVEL 22 MEQ/L (21-32); CHLORIDE LEVEL 113 MEQ/L (98-107); CPK CREATINE PHOSPHOKINASE 227 U/L (26-192); CREATININE FOR GFR 1.02 MG/DL (0.55-1.30); GLOMERULAR FILTRATION RATE > 60.0 (>60); GLUCOSE, FASTING 89 MG/DL (70-100); MAGNESIUM LEVEL 2.3 MG/DL (1.8-2.4); POTASSIUM SERUM 3.6 MEQ/L (3.5-5.1); SODIUM LEVEL 142 MEQ/L (136-145); TOTAL PROTEIN 7.1 GM/DL (6.4-8.2)
[2018-02-11] MEDS: PANTOPRAZOLE 40MG INJ (PROTONIX) (C9113) IV ×2 (09:10→20:23)
[2018-02-11] MEDS: ADDERALL 5 MG TAB PO (09:17)
[2018-02-11] MEDS: ENOXAPARIN 40 MG/0.4 ML SYRINGE (J1650) SC (09:19)
[2018-02-11] MEDS: MORPHINE 4 MG/ML 1ML VIAL/SYRINGE (J2270) IV ×2 (12:40→22:11)
[2018-02-11] MEDS: AMITRIPTYLINE 50 MG TAB PO (20:23)
[2018-02-11] MEDS: ZONISAMIDE 100 MG CAP (ZONEGRAN) PO (20:23)
[2018-02-12 05:24] LABS: BASO % 0.5 % (0.0-1.0); EOS # 0.2 10^3/uL (0.0-0.50); EOS % 2.1 % (0.0-3.0); HEMATOCRIT 38.5 % (36.0-47.0); HEMOGLOBIN 13.2 g/dl (12.0-15.5); IMMATURE GRANULOCYTE % 0.8 % (0-3.0); LYMPH # 2.6 10^3/uL (1.5-4.5); LYMPH % 32.9 % (24.0-44.0); MEAN CORPUSCULAR HEMOGLOBIN 29.9 pg (27.0-33.0); MEAN CORPUSCULAR HGB CONC 34.3 g/dl (32.0-36.5); MEAN CORPUSCULAR VOLUME 87.3 fl (80.0-96.0); MONO # 0.4 10^3/uL (0.0-0.8); MONO % 5.3 % (0.0-5.0); NEUTROPHILS # 4.5 10^3/uL (1.8-7.7); NEUTROPHILS % 58.4 % (36.0-66.0); PLATELET COUNT, AUTOMATED 275 10^3/uL (150-450); RED BLOOD COUNT 4.41 10^6/uL (4.00-5.40); RED CELL DISTRIBUTION WIDTH 12.8 % (11.5-14.5); WHITE BLOOD COUNT 7.8 10^3/uL (4.0-10.0)
[2018-02-12 05:41] LABS: ALBUMIN 3.5 GM/DL (3.2-5.2); ALKALINE PHOSPHATASE 96 U/L (45-117); ALT/SGPT 38 U/L (12-78); ANION GAP 5 MEQ/L (8-16); AST/SGOT 14 U/L (7-37); BILIRUBIN,TOTAL 0.4 MG/DL (0.2-1.0); BLOOD UREA NITROGEN 12 MG/DL (7-18); CALCIUM LEVEL 8.3 MG/DL (8.5-10.1); CARBON DIOXIDE LEVEL 24 MEQ/L (21-32); CHLORIDE LEVEL 113 MEQ/L (98-107); CPK CREATINE PHOSPHOKINASE 116 U/L (26-192); CREATININE FOR GFR 1.09 MG/DL (0.55-1.30); GLOMERULAR FILTRATION RATE 59.5 (>60); GLUCOSE, FASTING 94 MG/DL (70-100); MAGNESIUM LEVEL 2.3 MG/DL (1.8-2.4); POTASSIUM SERUM 3.7 MEQ/L (3.5-5.1); SODIUM LEVEL 142 MEQ/L (136-145)
[2018-02-12] MEDS: ADDERALL 5 MG TAB PO (09:19)
[2018-02-12] MEDS: PANTOPRAZOLE 40MG INJ (PROTONIX) (C9113) IV (09:19)
[2018-02-12] MEDS: ENOXAPARIN 40 MG/0.4 ML SYRINGE (J1650) SC (09:19)
== END 2018-02-12 21:17 | disposition home or self-care (01) | DRG 558 ==
LOC: M PCU 02-08 18:08 → M ED 16:27 → M ED INP 20:18
DX: M62.82 Rhabdomyolysis (principal); R07.9 Chest pain, unspecified; K22.4 Dyskinesia of esophagus; G43.109 Migraine with aura, not intractable, without status migrainosus; F17.210 Nicotine dependence, cigarettes, uncomplicated; F41.9 Anxiety disorder, unspecified; I50.9 Heart failure, unspecified; I49.5 Sick sinus syndrome; K21.9 Gastro-esophageal reflux disease without esophagitis; Z79.899 Other long term (current) drug therapy; Z91.013 Allergy to seafood; Z91.048 Other nonmedicinal substance allergy status; Z91.030 Bee allergy status; Z95.0 Presence of cardiac pacemaker; Z90.49 Acquired absence of other specified parts of digestive tract; Z90.710 Acquired absence of both cervix and uterus; Z90.722 Acquired absence of ovaries, bilateral; Z98.84 Bariatric surgery status

== ENCOUNTER 2018-03-14 02:12 | Observation (INO) | payer MEDICARE, OTHER ==
[2018-03-14] MEDS: ASPIRIN 325 MG TAB PO ×3 (03:57)
[2018-03-14] MEDS: MORPHINE 2 MG/ML 1ML SYRINGE (J2270) IV ×3 (03:57)
[2018-03-14 04:22] LABS: BASO # 0.1 10^3/uL (0.0-0.2); BASO % 0.6 % (0.0-1.0); EOS # 0.1 10^3/uL (0.0-0.50); EOS % 0.8 % (0.0-3.0); HEMATOCRIT 42.1 % (36.0-47.0); HEMOGLOBIN 14.6 g/dl (12.0-15.5); IMMATURE GRANULOCYTE % 0.4 % (0-3.0); LYMPH % 25.4 % (24.0-44.0); MEAN CORPUSCULAR HEMOGLOBIN 30.3 pg (27.0-33.0); MEAN CORPUSCULAR HGB CONC 34.7 g/dl (32.0-36.5); MEAN CORPUSCULAR VOLUME 87.3 fl (80.0-96.0); MONO # 0.7 10^3/uL (0.0-0.8); MONO % 5.7 % (0.0-5.0); NEUTROPHILS # 7.8 10^3/uL (1.8-7.7); NEUTROPHILS % 67.1 % (36.0-66.0); PLATELET COUNT, AUTOMATED 369 10^3/uL (150-450); RED BLOOD COUNT 4.82 10^6/uL (4.00-5.40); RED CELL DISTRIBUTION WIDTH 12.6 % (11.5-14.5); WHITE BLOOD COUNT 11.7 10^3/uL (4.0-10.0)
[2018-03-14 04:27] LABS: PARTIAL THROMBOPLASTIN TIME 33.9 SECONDS (26.8-37.9); PROTHROMBIN TIME 13.3 SECONDS (12.4-14.5)
[2018-03-14 04:35] LABS: ANION GAP 8 MEQ/L (8-16); BLOOD UREA NITROGEN 9 MG/DL (7-18); CALCIUM LEVEL 9.2 MG/DL (8.5-10.1); CARBON DIOXIDE LEVEL 26 MEQ/L (21-32); CHLORIDE LEVEL 108 MEQ/L (98-107); CK-MB VALUE MASS 1.4 NG/ML (<3.6); CPK CREATINE PHOSPHOKINASE 248 U/L (26-192); CREATININE FOR GFR 0.89 MG/DL (0.55-1.30); GLOMERULAR FILTRATION RATE > 60.0 (>60); GLUCOSE, FASTING 113 MG/DL (70-100); MB/CK RELATIVE INDEX 0.56 (< OR =4); POTASSIUM SERUM 3.8 MEQ/L (3.5-5.1); SODIUM LEVEL 142 MEQ/L (136-145); TROPONIN I < 0.02 NG/ML (< 0.10)
[2018-03-14] MEDS: diphenhydrAMINE INJ 50MG/ML VIAL (J1200) IV ×3 (05:46)
[2018-03-14] MEDS ORDERED: ISOVUE-370 76% 100ML VIAL (Q9967) As Ordered ×3 (05:47)
[2018-03-14] MEDS: dexameTHASONE 20 MG/5 ML VIAL (J1100) IV ×3 (06:00)
[2018-03-14] MEDS: KETOROLAC 30 MG/ML VIAL (J1885) IV ×6 (06:15→20:25)
[2018-03-14] MEDS: PANTOPRAZOLE 40MG TAB (PROTONIX) PO ×6 (09:00→18:06)
[2018-03-14] MEDS: ASPIRIN 81 MG ENTERIC TAB PO ×3 (09:00)
[2018-03-14] MEDS: PERCOCET 5MG/325MG TAB PO ×3 (09:45)
[2018-03-14 10:04] LABS: CPK CREATINE PHOSPHOKINASE 187 U/L (26-192); TROPONIN I < 0.02 NG/ML (< 0.10)
[2018-03-14 10:05] LABS: CK-MB VALUE MASS 1.2 NG/ML (<3.6); MB/CK RELATIVE INDEX 0.64 (< OR =4)
[2018-03-14] MEDS: HYDROmorphone HCL 1 MG/ML SYRINGE (J1170) IV ×3 (10:40)
[2018-03-14] MEDS: NS 1,500 ML IV ×3 (13:46)
[2018-03-14] MEDS: ONDANSETRON 4MG/2ML VIAL (J2405) IV ×3 (14:19)
[2018-03-14 15:46] LABS: C REACTIVE PROTEIN QUANTITATIV 0.46 MG/DL (0.00-0.30)
[2018-03-14 15:50] LABS: CK-MB VALUE MASS < 1.0 NG/ML (<3.6); CPK CREATINE PHOSPHOKINASE 172 U/L (26-192); MB/CK RELATIVE INDEX 0.58 (< OR =4); TROPONIN I < 0.02 NG/ML (< 0.10)
[2018-03-14 16:48] LABS: ERYTHROCYTE SEDIMENTATION RATE 3 mm/hr (0-20)
[2018-03-14] MEDS ORDERED: AMITRIPTYLINE 50 MG TAB PO ×3 (21:00)
[2018-03-14] MEDS: MORPHINE 4 MG/ML 1ML VIAL/SYRINGE (J2270) IV ×3 (21:28)
[2018-03-14 21:55] LABS: CPK CREATINE PHOSPHOKINASE 146 U/L (26-192); TROPONIN I < 0.02 NG/ML (< 0.10)
[2018-03-14 21:56] LABS: CK-MB VALUE MASS 1.2 NG/ML (<3.6); MB/CK RELATIVE INDEX 0.82 (< OR =4)
[2018-03-14] MEDS: AMITRIPTYLINE 50 MG TAB PO ×3 (22:16)
[2018-03-14] MEDS: ZONISAMIDE 100 MG CAP (ZONEGRAN) PO ×3 (22:17)
[2018-03-14] MEDS: traMADol 50 MG TAB PO ×3 (22:18)
[2018-03-15 05:43] LABS: HEMATOCRIT 35.9 % (36.0-47.0); MEAN CORPUSCULAR HEMOGLOBIN 30.4 pg (27.0-33.0); MEAN CORPUSCULAR VOLUME 89.5 fl (80.0-96.0); PLATELET COUNT, AUTOMATED 278 10^3/uL (150-450); RED BLOOD COUNT 4.01 10^6/uL (4.00-5.40); RED CELL DISTRIBUTION WIDTH 12.8 % (11.5-14.5); WHITE BLOOD COUNT 6.8 10^3/uL (4.0-10.0)
[2018-03-15 05:47] LABS: HEMOGLOBIN 12.2 g/dl (12.0-15.5)
[2018-03-15 06:17] LABS: ALBUMIN 3.2 GM/DL (3.2-5.2); ALBUMIN/GLOBULIN RATIO 1.07 (1.00-1.93); ALKALINE PHOSPHATASE 94 U/L (45-117); ALT/SGPT 75 U/L (12-78); ANION GAP 4 MEQ/L (8-16); AST/SGOT 35 U/L (7-37); BILIRUBIN,TOTAL 0.3 MG/DL (0.2-1.0); BLOOD UREA NITROGEN 13 MG/DL (7-18); C REACTIVE PROTEIN QUANTITATIV 0.44 MG/DL (0.00-0.30); CALCIUM LEVEL 7.9 MG/DL (8.5-10.1); CARBON DIOXIDE LEVEL 26 MEQ/L (21-32); CHLORIDE LEVEL 113 MEQ/L (98-107); CK-MB VALUE MASS < 1.0 NG/ML (<3.6); CPK CREATINE PHOSPHOKINASE 102 U/L (26-192); CREATININE FOR GFR 0.84 MG/DL (0.55-1.30); GLOMERULAR FILTRATION RATE > 60.0 (>60); GLUCOSE, FASTING 87 MG/DL (70-100); MAGNESIUM LEVEL 2.3 MG/DL (1.8-2.4); MB/CK RELATIVE INDEX 0.98 (< OR =4); SODIUM LEVEL 143 MEQ/L (136-145); TOTAL PROTEIN 6.2 GM/DL (6.4-8.2); TROPONIN I < 0.02 NG/ML (< 0.10)
[2018-03-15] MEDS: ASPIRIN 81 MG ENTERIC TAB PO ×3 (08:32)
[2018-03-15] MEDS: PANTOPRAZOLE 40MG TAB (PROTONIX) PO ×3 (08:32)
[2018-03-15] MEDS: ACETAMINOPHEN TAB 650MG DOSE (2X325MG) PO ×3 (10:25)
[2018-03-15] MEDS: ZONISAMIDE 100 MG CAP (ZONEGRAN) PO ×3 (20:25)
[2018-03-15] MEDS: AMITRIPTYLINE 50 MG TAB PO ×3 (20:25)
[2018-03-15] MEDS: traMADol 50 MG TAB PO ×3 (20:26)
[2018-03-16 06:27] LABS: HEMATOCRIT 35.8 % (36.0-47.0); HEMOGLOBIN 11.9 g/dl (12.0-15.5); MEAN CORPUSCULAR HEMOGLOBIN 29.9 pg (27.0-33.0); MEAN CORPUSCULAR HGB CONC 33.2 g/dl (32.0-36.5); MEAN CORPUSCULAR VOLUME 89.9 fl (80.0-96.0); PLATELET COUNT, AUTOMATED 258 10^3/uL (150-450); RED BLOOD COUNT 3.98 10^6/uL (4.00-5.40); RED CELL DISTRIBUTION WIDTH 12.8 % (11.5-14.5); WHITE BLOOD COUNT 6.8 10^3/uL (4.0-10.0)
[2018-03-16 07:02] LABS: ALBUMIN 3.1 GM/DL (3.2-5.2); ALBUMIN/GLOBULIN RATIO 1.03 (1.00-1.93); ALKALINE PHOSPHATASE 88 U/L (45-117); ALT/SGPT 52 U/L (12-78); ANION GAP 6 MEQ/L (8-16); AST/SGOT 12 U/L (7-37); BILIRUBIN,TOTAL 0.2 MG/DL (0.2-1.0); BLOOD UREA NITROGEN 11 MG/DL (7-18); C REACTIVE PROTEIN QUANTITATIV 0.39 MG/DL (0.00-0.30); CALCIUM LEVEL 7.9 MG/DL (8.5-10.1); CARBON DIOXIDE LEVEL 23 MEQ/L (21-32); CHLORIDE LEVEL 114 MEQ/L (98-107); CREATININE FOR GFR 0.82 MG/DL (0.55-1.30); GLOMERULAR FILTRATION RATE > 60.0 (>60); GLUCOSE, FASTING 85 MG/DL (70-100); MAGNESIUM LEVEL 2.2 MG/DL (1.8-2.4); POTASSIUM SERUM 3.9 MEQ/L (3.5-5.1); SODIUM LEVEL 143 MEQ/L (136-145); TOTAL PROTEIN 6.1 GM/DL (6.4-8.2)
[2018-03-16] MEDS: ASPIRIN 81 MG ENTERIC TAB PO ×3 (08:00)
[2018-03-16] MEDS: PANTOPRAZOLE 40MG TAB (PROTONIX) PO ×3 (08:01)
== END 2018-03-16 11:37 | disposition home or self-care (01) ==
LOC: M ED 02:12 → M ED INP 13:46 → M MSPAV 16:18
DX: R07.89 Other chest pain (principal); K21.9 Gastro-esophageal reflux disease without esophagitis; I10 Essential (primary) hypertension; Z95.0 Presence of cardiac pacemaker; G47.09 Other insomnia; Z98.84 Bariatric surgery status; E66.01 Morbid (severe) obesity due to excess calories; F41.9 Anxiety disorder, unspecified; Z79.899 Other long term (current) drug therapy; Z86.79 Personal history of other diseases of the circulatory system; Z79.82 Long term (current) use of aspirin; Z91.013 Allergy to seafood; Z91.030 Bee allergy status; F17.210 Nicotine dependence, cigarettes, uncomplicated
CPT/HCPCS: J1170

== ENCOUNTER 2018-04-09 14:08 | Emergency (ER) | payer MEDICARE, OTHER ==
[2018-04-09 16:05] LABS: ANION GAP 9 MEQ/L (8-16); BLOOD UREA NITROGEN 9 MG/DL (7-18); CALCIUM LEVEL 8.6 MG/DL (8.5-10.1); CARBON DIOXIDE LEVEL 20 MEQ/L (21-32); CHLORIDE LEVEL 110 MEQ/L (98-107); CREATININE FOR GFR 0.76 MG/DL (0.55-1.30); GLOMERULAR FILTRATION RATE > 60.0 (>60); GLUCOSE, FASTING 105 MG/DL (70-100); MAGNESIUM LEVEL 2.1 MG/DL (1.8-2.4); POTASSIUM SERUM 3.7 MEQ/L (3.5-5.1); SODIUM LEVEL 139 MEQ/L (136-145)
== END 2018-04-09 17:29 | disposition home or self-care (01) ==
LOC: M ED 14:08
DX: M62.838 Other muscle spasm (principal); R00.0 Tachycardia, unspecified; I45.19 Other right bundle-branch block; G43.909 Migraine, unspecified, not intractable, without status migrainosus; F90.9 Attention-deficit hyperactivity disorder, unspecified type; F41.9 Anxiety disorder, unspecified; Z79.899 Other long term (current) drug therapy; Z91.030 Bee allergy status; Z91.013 Allergy to seafood; Z91.89 Other specified personal risk factors, not elsewhere classified; Z88.8 Allergy status to other drugs, medicaments and biological substances
CPT/HCPCS: 93005

== ENCOUNTER 2018-05-24 11:37 | Emergency (ER) | payer MEDICARE, OTHER ==
[2018-05-24] MEDS: diphenhydrAMINE INJ 50MG/ML VIAL (J1200) IV (13:11)
[2018-05-24] MEDS: METOCLOPRAMIDE INJ 10MG/2ML VIAL (J2765) IV (13:11)
[2018-05-24] MEDS: NS 1,000 ML IV (13:11)
[2018-05-24] MEDS: KETOROLAC 30 MG/ML VIAL (J1885) IV (13:12)
[2018-05-24 13:52] LABS: ANION GAP 7 MEQ/L (8-16); BLOOD UREA NITROGEN 8 MG/DL (7-18); CARBON DIOXIDE LEVEL 28 MEQ/L (21-32); CHLORIDE LEVEL 107 MEQ/L (98-107); CREATININE FOR GFR 0.76 MG/DL (0.55-1.30); GLOMERULAR FILTRATION RATE > 60.0 (>58); GLUCOSE, FASTING 93 MG/DL (70-100); POTASSIUM SERUM 4.3 MEQ/L (3.5-5.1); SODIUM LEVEL 142 MEQ/L (136-145)
[2018-05-24] MEDS ORDERED: ISOVUE-370 76% 100ML VIAL (Q9967) As Ordered (14:19)
== END 2018-05-24 15:46 | disposition home or self-care (01) ==
LOC: M ED 11:37
DX: G43.909 Migraine, unspecified, not intractable, without status migrainosus (principal)
CPT/HCPCS: J1200

== ENCOUNTER → 2018-06-21 | Outpatient (CLI) | payer MEDICARE, OTHER ==
[2018-06-21 13:43] LABS: HEMATOCRIT 45.4 % (36.0-47.0); HEMOGLOBIN 14.6 g/dl (12.0-15.5); MEAN CORPUSCULAR HGB CONC 32.2 g/dl (32.0-36.5); MEAN CORPUSCULAR VOLUME 90.1 fl (80.0-96.0); PLATELET COUNT, AUTOMATED 315 10^3/uL (150-450); RED BLOOD COUNT 5.04 10^6/uL (4.00-5.40); RED CELL DISTRIBUTION WIDTH 12.1 % (11.5-14.5); WHITE BLOOD COUNT 12.1 10^3/uL (4.0-10.0)
[2018-06-21 14:28] LABS: ANION GAP 7 MEQ/L (8-16); BLOOD UREA NITROGEN 8 MG/DL (7-18); CALCIUM LEVEL 8.9 MG/DL (8.5-10.1); CARBON DIOXIDE LEVEL 29 MEQ/L (21-32); CHLORIDE LEVEL 105 MEQ/L (98-107); CREATININE FOR GFR 0.95 MG/DL (0.55-1.30); GLOMERULAR FILTRATION RATE > 60.0 (>58); GLUCOSE, FASTING 79 MG/DL (70-100); POTASSIUM SERUM 4.2 MEQ/L (3.5-5.1); SODIUM LEVEL 141 MEQ/L (136-145); TROPONIN I < 0.02 NG/ML (< 0.10)
== END ==
LOC: M SMT 10:10
DX: R07.89 Other chest pain (principal); R06.00 Dyspnea, unspecified; Z95.0 Presence of cardiac pacemaker
CPT/HCPCS: 80048

== ENCOUNTER 2018-07-15 17:09 | Emergency (ER) | payer MEDICARE, OTHER ==
[2018-07-15 18:03] LABS: BASO # 0.1 10^3/uL (0.0-0.2); BASO % 0.4 % (0.0-1.0); EOS # 0.1 10^3/uL (0.0-0.50); EOS % 0.3 % (0.0-3.0); HEMATOCRIT 37.3 % (36.0-47.0); HEMOGLOBIN 12.8 g/dl (12.0-15.5); IMMATURE GRANULOCYTE % 0.7 % (0-3.0); LYMPH # 3.1 10^3/uL (1.5-4.5); LYMPH % 18.2 % (24.0-44.0); MEAN CORPUSCULAR HEMOGLOBIN 29.8 pg (27.0-33.0); MEAN CORPUSCULAR HGB CONC 34.3 g/dl (32.0-36.5); MEAN CORPUSCULAR VOLUME 86.7 fl (80.0-96.0); MONO # 0.7 10^3/uL (0.0-0.8); MONO % 3.8 % (0.0-5.0); NEUTROPHILS # 13.2 10^3/uL (1.8-7.7); NEUTROPHILS % 76.6 % (36.0-66.0); PLATELET COUNT, AUTOMATED 336 10^3/uL (150-450); RED CELL DISTRIBUTION WIDTH 12.7 % (11.5-14.5); WHITE BLOOD COUNT 17.2 10^3/uL (4.0-10.0)
[2018-07-15 18:18] LABS: CONTROL LINE HCG INT CTR LINE PRESENT; HCG, SERUM QUALITATIVE NEGATIVE (NEGATIVE)
[2018-07-15 18:28] LABS: PROTHROMBIN TIME 14.3 SECONDS (12.1-14.4)
[2018-07-15 18:29] LABS: PARTIAL THROMBOPLASTIN TIME 29.7 SECONDS (25.4-37.6)
[2018-07-15 18:34] LABS: ALBUMIN/GLOBULIN RATIO 1.14 (1.00-1.93); ALKALINE PHOSPHATASE 92 U/L (45-117); ALT/SGPT 41 U/L (12-78); ANION GAP 11 MEQ/L (8-16); AST/SGOT 13 U/L (7-37); BILIRUBIN,DIRECT < 0.1 MG/DL (0.0-0.2); BILIRUBIN,TOTAL 0.3 MG/DL (0.2-1.0); BLOOD UREA NITROGEN 10 MG/DL (7-18); CALCIUM LEVEL 8.1 MG/DL (8.5-10.1); CARBON DIOXIDE LEVEL 22 MEQ/L (21-32); CHLORIDE LEVEL 106 MEQ/L (98-107); CK-MB VALUE MASS < 1.0 NG/ML (<3.6); CPK CREATINE PHOSPHOKINASE 112 U/L (26-192); CREATININE FOR GFR 0.83 MG/DL (0.55-1.30); GLOMERULAR FILTRATION RATE > 60.0 (>58); GLUCOSE, FASTING 107 MG/DL (70-100); LIPASE 46 U/L (73-393); MB/CK RELATIVE INDEX 0.89 (< OR =4); POTASSIUM SERUM 3.7 MEQ/L (3.5-5.1); SODIUM LEVEL 139 MEQ/L (136-145); TOTAL PROTEIN 7.5 GM/DL (6.4-8.2); TROPONIN I < 0.02 NG/ML (< 0.10)
[2018-07-15] MEDS: GI COCKTAIL 50ML BTL(HYOSCYAMINE/MAALOX/LIDOCAINE VISCOUS)(1:3:1) PO (19:36)
[2018-07-15] MEDS: PANTOPRAZOLE 40MG INJ (PROTONIX) (C9113) IV (19:39)
[2018-07-15] MEDS ORDERED: ISOVUE-370 76% 100ML VIAL (Q9967) As Ordered (19:46)
[2018-07-15] MEDS: NS 1,000 ML IV (21:15)
[2018-07-15] MEDS: SUCRALFATE 1 GM TAB PO (21:49)
[2018-07-15] MEDS: KETOROLAC 30 MG/ML VIAL (J1885) IV (21:51)
== END 2018-07-15 22:24 | disposition home or self-care (01) ==
LOC: M ED 17:09
DX: K22.4 Dyskinesia of esophagus (principal); K52.9 Noninfective gastroenteritis and colitis, unspecified; I67.1 Cerebral aneurysm, nonruptured; Z98.84 Bariatric surgery status; Z95.0 Presence of cardiac pacemaker; F17.210 Nicotine dependence, cigarettes, uncomplicated; Z79.899 Other long term (current) drug therapy
CPT/HCPCS: C9113

== ENCOUNTER 2018-08-01 08:49 | Emergency (ER) | payer MEDICARE, OTHER ==
[2018-08-01] MEDS: GASTROGRAFIN SOLUTION 30ML PO ×2 (09:49→10:30)
[2018-08-01] MEDS: NS 1,000 ML IV (09:49)
[2018-08-01] MEDS: METOCLOPRAMIDE INJ 10MG/2ML VIAL (J2765) IV (09:49)
[2018-08-01 09:58] LABS: BASO # 0.1 10^3/uL (0.0-0.2); BASO % 0.9 % (0.0-1.0); EOS # 0.2 10^3/uL (0.0-0.50); HEMATOCRIT 42.1 % (36.0-47.0); IMMATURE GRANULOCYTE % 0.8 % (0-3.0); LYMPH # 2.3 10^3/uL (1.5-4.5); LYMPH % 28.7 % (24.0-44.0); MEAN CORPUSCULAR HEMOGLOBIN 29.4 pg (27.0-33.0); MEAN CORPUSCULAR HGB CONC 33.3 g/dl (32.0-36.5); MEAN CORPUSCULAR VOLUME 88.4 fl (80.0-96.0); MONO # 0.4 10^3/uL (0.0-0.8); MONO % 5.6 % (0.0-5.0); NEUTROPHILS # 4.9 10^3/uL (1.8-7.7); PLATELET COUNT, AUTOMATED 309 10^3/uL (150-450); RED BLOOD COUNT 4.76 10^6/uL (4.00-5.40); RED CELL DISTRIBUTION WIDTH 12.4 % (11.5-14.5); WHITE BLOOD COUNT 7.9 10^3/uL (4.0-10.0)
[2018-08-01 10:07] LABS: APPEARANCE, URINE CLEAR (CLEAR); BACTERIA, URINE AUTO 2+ (NEGATIVE); BILIRUBIN, URINE AUTO NEGATIVE (NEGATIVE); BLOOD, URINE BLOOD NEGATIVE (NEGATIVE); COLOR, URINE STRAW (YELLOW); GLUCOSE, URINE (UA) AUTO NEGATIVE (NEGATIVE); KETONE, URINE AUTO NEGATIVE (NEGATIVE); LEUKOCYTE ESTERASE, URINE AUTO NEGATIVE (NEGATIVE); NITRITE, URINE AUTO NEGATIVE (NEGATIVE); PROTEIN, URINE AUTO NEGATIVE (NEGATIVE); RBC, URINE AUTO 0 /HPF (0-3); SPECIFIC GRAVITY URINE AUTO 1.003 (1.002-1.035); SQUAMOUS EPITHELIAL CELL UR AU 1 /HPF (0-6); UROBILINOGEN, URINE AUTO 0.2 mg/dL (0.0-2.0); WBC, URINE AUTO 2 /HPF (0-3)
[2018-08-01 10:27] LABS: ALBUMIN/GLOBULIN RATIO 1.18 (1.00-1.93); ALKALINE PHOSPHATASE 87 U/L (45-117); ALT/SGPT 26 U/L (12-78); AMYLASE 32 U/L (25-115); ANION GAP 5 MEQ/L (8-16); AST/SGOT 13 U/L (7-37); BILIRUBIN,TOTAL 0.4 MG/DL (0.2-1.0); BLOOD UREA NITROGEN 10 MG/DL (7-18); C REACTIVE PROTEIN QUANTITATIV < 0.30 MG/DL (0.00-0.30); CALCIUM LEVEL 8.7 MG/DL (8.5-10.1); CARBON DIOXIDE LEVEL 27 MEQ/L (21-32); CHLORIDE LEVEL 109 MEQ/L (98-107); CREATININE FOR GFR 0.81 MG/DL (0.55-1.30); GLOMERULAR FILTRATION RATE > 60.0 (>58); GLUCOSE, FASTING 89 MG/DL (70-100); LIPASE 54 U/L (73-393); SODIUM LEVEL 141 MEQ/L (136-145); TOTAL PROTEIN 7.4 GM/DL (6.4-8.2)
[2018-08-01] MEDS ORDERED: ISOVUE-370 76% 100ML VIAL (Q9967) As Ordered (10:45)
== END 2018-08-01 11:55 | disposition home or self-care (01) ==
LOC: M ED 08:49
DX: R10.32 Left lower quadrant pain (principal); R11.2 Nausea with vomiting, unspecified; R19.7 Diarrhea, unspecified; I10 Essential (primary) hypertension; J45.909 Unspecified asthma, uncomplicated; F31.9 Bipolar disorder, unspecified; F90.9 Attention-deficit hyperactivity disorder, unspecified type; F20.9 Schizophrenia, unspecified; K58.9 Irritable bowel syndrome, unspecified; R56.9 Unspecified convulsions; G43.909 Migraine, unspecified, not intractable, without status migrainosus; Z87.442 Personal history of urinary calculi; Z95.0 Presence of cardiac pacemaker; Z98.84 Bariatric surgery status; Z79.899 Other long term (current) drug therapy; Z79.82 Long term (current) use of aspirin; Z88.8 Allergy status to other drugs, medicaments and biological substances; Z91.013 Allergy to seafood; Z91.030 Bee allergy status; Z91.048 Other nonmedicinal substance allergy status
CPT/HCPCS: Q9963

== ENCOUNTER → 2018-08-07 | Outpatient (CLI) | payer MEDICARE, OTHER | LOC: M LRY 14:44 | DX: M79.641 Pain in right hand (principal) | CPT/HCPCS: 73130; G0463 ==

== ENCOUNTER 2018-08-28 21:29 | Emergency (ER) | payer MEDICARE, OTHER ==
[2018-08-28] MEDS: ONDANSETRON 4MG/2ML VIAL (J2405) IV (22:11)
[2018-08-28] MEDS: PANTOPRAZOLE 40MG INJ (PROTONIX) (C9113) IV (22:11)
[2018-08-28] MEDS: GI COCKTAIL 50ML BTL(HYOSCYAMINE/MAALOX/LIDOCAINE VISCOUS)(1:3:1) PO (22:11)
[2018-08-28 22:12] LABS: HEMATOCRIT 41.8 % (36.0-47.0); HEMOGLOBIN 13.8 g/dl (12.0-15.5); MEAN CORPUSCULAR HEMOGLOBIN 28.9 pg (27.0-33.0); MEAN CORPUSCULAR VOLUME 87.4 fl (80.0-96.0); PLATELET COUNT, AUTOMATED 360 10^3/uL (150-450); RED BLOOD COUNT 4.78 10^6/uL (4.00-5.40); RED CELL DISTRIBUTION WIDTH 12.4 % (11.5-14.5); WHITE BLOOD COUNT 12.4 10^3/uL (4.0-10.0)
[2018-08-28 22:15] LABS: ADD MANUAL DIFFER YES; DIFF SLIDE NUMBER 354; POSITIVE MORPH POS FLAG
[2018-08-28 22:16] LABS: INR 0.97
[2018-08-28 22:17] LABS: PARTIAL THROMBOPLASTIN TIME 30.9 SECONDS (25.4-37.6)
[2018-08-28 22:30] LABS: ALBUMIN/GLOBULIN RATIO 1.11 (1.00-1.93); ALKALINE PHOSPHATASE 126 U/L (45-117); ALT/SGPT 108 U/L (12-78); ANION GAP 7 MEQ/L (8-16); AST/SGOT 22 U/L (7-37); BILIRUBIN,DIRECT < 0.1 MG/DL (0.0-0.2); BILIRUBIN,TOTAL 0.2 MG/DL (0.2-1.0); BLOOD UREA NITROGEN 16 MG/DL (7-18); CALCIUM LEVEL 8.6 MG/DL (8.5-10.1); CARBON DIOXIDE LEVEL 26 MEQ/L (21-32); CHLORIDE LEVEL 108 MEQ/L (98-107); CK-MB VALUE MASS < 1.0 NG/ML (<3.6); CPK CREATINE PHOSPHOKINASE 95 U/L (26-192); CREATININE FOR GFR 1.11 MG/DL (0.55-1.30); GLUCOSE, FASTING 146 MG/DL (70-100); LIPASE 69 U/L (73-393); MB/CK RELATIVE INDEX 1.05 (< OR =4); POTASSIUM SERUM 3.7 MEQ/L (3.5-5.1); SODIUM LEVEL 141 MEQ/L (136-145); TOTAL PROTEIN 7.6 GM/DL (6.4-8.2); TROPONIN I < 0.02 NG/ML (< 0.10)
[2018-08-28 22:45] LABS: ATYPICAL LYMPH 1 % (0-5); LYMPHOCYTES 39 % (16-52); MONOCYTES 3 % (0-8); NEUTROPHILS 57 % (35-75); PLATELET ESTIMATE NORMAL (NORMAL)
[2018-08-28] MEDS ORDERED: ISOVUE-370 76% 100ML VIAL (Q9967) As Ordered (23:19)
[2018-08-28] MEDS: NITROGLYCERIN 0.4 MG SUBL TABLET SL ×2 (23:23→23:25)
[2018-08-28] MEDS: ASPIRIN 81 MG CHEW TABLET PO ×2 (23:23→23:25)
[2018-08-28] MEDS: MORPHINE 4 MG/ML 1ML VIAL/SYRINGE (J2270) IV (23:49)
[2018-08-29] MEDS: NITROGLYCERIN 0.4 MG SUBL TABLET SL ×2 (00:08→00:10)
== END 2018-08-29 03:28 | disposition left against medical advice (07) ==
LOC: M ED 08-29 03:28
DX: R07.9 Chest pain, unspecified (principal); K92.0 Hematemesis; I49.5 Sick sinus syndrome; F31.9 Bipolar disorder, unspecified; Z85.41 Personal history of malignant neoplasm of cervix uteri; Z98.84 Bariatric surgery status; Z95.0 Presence of cardiac pacemaker; F17.200 Nicotine dependence, unspecified, uncomplicated; Z91.013 Allergy to seafood; Z91.048 Other nonmedicinal substance allergy status; Z91.030 Bee allergy status; Z88.8 Allergy status to other drugs, medicaments and biological substances; Z79.899 Other long term (current) drug therapy
CPT/HCPCS: C9113

== ENCOUNTER 2018-08-29 12:26 | Emergency (ER) | payer MEDICARE, OTHER ==
[2018-08-29 13:29] LABS: BASO # 0.1 10^3/uL (0.0-0.2); BASO % 0.6 % (0.0-1.0); EOS # 0.2 10^3/uL (0.0-0.50); EOS % 1.5 % (0.0-3.0); HEMATOCRIT 39.7 % (36.0-47.0); HEMOGLOBIN 13.2 g/dl (12.0-15.5); IMMATURE GRANULOCYTE % 0.5 % (0-3.0); LYMPH # 2.4 10^3/uL (1.5-4.5); LYMPH % 24.6 % (24.0-44.0); MEAN CORPUSCULAR HEMOGLOBIN 28.9 pg (27.0-33.0); MEAN CORPUSCULAR HGB CONC 33.2 g/dl (32.0-36.5); MEAN CORPUSCULAR VOLUME 87.1 fl (80.0-96.0); MONO # 0.5 10^3/uL (0.0-0.8); MONO % 4.9 % (0.0-5.0); NEUTROPHILS # 6.7 10^3/uL (1.8-7.7); NEUTROPHILS % 67.9 % (36.0-66.0); PLATELET COUNT, AUTOMATED 317 10^3/uL (150-450); RED BLOOD COUNT 4.56 10^6/uL (4.00-5.40); RED CELL DISTRIBUTION WIDTH 12.3 % (11.5-14.5); WHITE BLOOD COUNT 9.8 10^3/uL (4.0-10.0)
[2018-08-29] MEDS: ONDANSETRON 4MG/2ML VIAL (J2405) IV (13:47)
[2018-08-29] MEDS: GI COCKTAIL 50ML BTL(HYOSCYAMINE/MAALOX/LIDOCAINE VISCOUS)(1:3:1) PO (13:47)
[2018-08-29] MEDS: MORPHINE 4 MG/ML 1ML VIAL/SYRINGE (J2270) IV (13:47)
[2018-08-29 14:12] LABS: ANION GAP 9 MEQ/L (8-16); BLOOD UREA NITROGEN 11 MG/DL (7-18); CALCIUM LEVEL 8.1 MG/DL (8.5-10.1); CARBON DIOXIDE LEVEL 25 MEQ/L (21-32); CHLORIDE LEVEL 107 MEQ/L (98-107); CK-MB VALUE MASS < 1.0 NG/ML (<3.6); CPK CREATINE PHOSPHOKINASE 89 U/L (26-192); CREATININE FOR GFR 0.89 MG/DL (0.55-1.30); GLOMERULAR FILTRATION RATE > 60.0 (>58); GLUCOSE, FASTING 94 MG/DL (70-100); MB/CK RELATIVE INDEX 1.12 (< OR =4); POTASSIUM SERUM 4.2 MEQ/L (3.5-5.1); SODIUM LEVEL 141 MEQ/L (136-145); TROPONIN I < 0.02 NG/ML (< 0.10)
[2018-08-29] MEDS: KETOROLAC 30 MG/ML VIAL (J1885) IV (15:09)
[2018-08-29] MEDS: HYDROMORPHONE HCL 0.5 MG/ 0.5 ML SYRINGE (J1170 PER 1) IV (17:24)
[2018-08-29 17:50] LABS: LIPASE 64 U/L (73-393)
== END 2018-08-29 18:56 | disposition home or self-care (01) ==
LOC: M ED 12:26
DX: R07.89 Other chest pain (principal); R06.02 Shortness of breath; I49.5 Sick sinus syndrome; F31.9 Bipolar disorder, unspecified; Z95.0 Presence of cardiac pacemaker; Z98.84 Bariatric surgery status; Z88.8 Allergy status to other drugs, medicaments and biological substances; Z91.013 Allergy to seafood; Z91.030 Bee allergy status; Z91.048 Other nonmedicinal substance allergy status; F17.210 Nicotine dependence, cigarettes, uncomplicated
CPT/HCPCS: J2270

== ENCOUNTER 2018-09-06 08:20 | Emergency (ER) | payer MEDICARE, OTHER | END 2018-09-06 09:25 | disposition home or self-care (01) | LOC: M ED 08:20 | DX: K59.00 Constipation, unspecified (principal); F17.210 Nicotine dependence, cigarettes, uncomplicated | CPT/HCPCS: 74018 ==

== ENCOUNTER 2018-09-26 09:45 | Emergency (ER) | payer MEDICARE, OTHER ==
[~2018-09-26] VITALS: Ht 154.9 cm; Wt 88.2 kg
[~2018-09-26 09:45] MED LIST changes: +ACET1TAB55 PO; +ACET30TAB PO; +AMIT50TA PO; +ANUS25SU PR; +ASPI1TAB PO; -ASPI325T24 PO; +ASPI325T25 PO; +ASPI81TA85 PO; +BANO25CA PO; +BENA25TA10 PO; +CARA1TAB6 PO; -CLON0.5T PO; +CLON0.5T8 PO; -CLON1TAB PO; +CLON1TAB8 PO; +COLA100C5 PO; +CYAN1000VL; +CYAN1000VL INJ; +DILT1TAB12 PO; +DILT60TA PO; +DIPH50CA PO; -DRIS50002 PO; +DRIS50003 PO; +EXCETAB80 PO; +HYDR-3363; +LIDO2JELLY TOP; +LORA-243 PO; +MAGN1TAB25 PO; +METO25TA4 PO; +MIRA3350 PO; +NITR4TASL; +OXYC1TAB23 PO; -PANT40TA2 PO; +PANT40TA3 PO; +PRED10TA2 PO; +PROM25TA GT; +RANI150T; +REGL10TA6 PO; +TRAZ-160 PO; -TRAZ50TA11 PO; +VITATAB11 PO; +ZOFR4TAB14 PO; -ZOFR4TAB3 PO; +ZONE1CAP PO; +ZONI50CA3
[2018-09-26] MEDS ORDERED: NS 1,000 ML IV ONE (10:15)
[2018-09-26 10:42] LABS: HEMATOCRIT 42.6 % (36.0-47.0); HEMOGLOBIN 14.2 g/dl (12.0-15.5); MEAN CORPUSCULAR HEMOGLOBIN 28.6 pg (27.0-33.0); MEAN CORPUSCULAR HGB CONC 33.3 g/dl (32.0-36.5); MEAN CORPUSCULAR VOLUME 85.7 fl (80.0-96.0); PLATELET COUNT, AUTOMATED 288 10^3/uL (150-450); RED BLOOD COUNT 4.97 10^6/uL (4.00-5.40); WHITE BLOOD COUNT 7.5 10^3/uL (4.0-10.0)
--- NOTE | 2018-09-26 10:46 | REP ---
Chest x-ray: Two views. History: Productive cough. Comparison study: August 29, 2018. Findings: A bipolar pacemaker is again noted in the right heart via the left side. The lungs are well inflated and clear. The pleural angles are sharp. Heart size is normal. Pulmonary vasculature is not increased. No bony abnormality is appreciated. There are surgical clips in the right upper quadrant consistent with previous cholecystectomy. Impression: Pacemaker in place. No acute disease. Electronically Signed by Anshul Ness MD 09/26/2018 10:38 A
[2018-09-26 11:14] LABS: INFLUENZA A AMPLIFICATION NEGATIVE (NEGATIVE); INFLUENZA B AMPLIFICATION NEGATIVE (NEGATIVE)
[2018-09-26 11:38] LABS: BLOOD UREA NITROGEN 12 MG/DL (7-18); CALCIUM LEVEL 8.8 MG/DL (8.5-10.1); CARBON DIOXIDE LEVEL 26 MEQ/L (21-32); CHLORIDE LEVEL 103 MEQ/L (98-107); CREATININE FOR GFR 0.88 MG/DL (0.55-1.30); GLOMERULAR FILTRATION RATE > 60.0 (>58); GLUCOSE, FASTING 100 MG/DL (70-100); MONO SCRN NEGATIVE (NEGATIVE); SODIUM LEVEL 139 MEQ/L (136-145)
[2018-09-26] MEDS ORDERED: ACETAMINOPHEN 325 MG TAB PO ONE (11:45)
[2018-09-26 11:56] VITALS: BP 132/90
[2018-09-26] MEDS ORDERED: PRED10TA2 PO (11:57)
[2018-09-26] MEDS ORDERED: AMOX500T PO (11:57)
--- NOTE | 2018-09-26 11:59 | REP ---
HEAD CT WITHOUT CONTRAST: HISTORY: Severe headache times 3 days. COMPARISON STUDY: May 24, 2018. CT FINDINGS: Bone window settings demonstrate an intact bony calvarium. There is no evidence of skull fracture or incidental bony calvarial lesion. There is mucosal thickening in the ethmoid and maxillary sinuses bilaterally. The visualized paranasal sinuses appear otherwise clear. No intraorbital abnormality is seen. On soft tissue window setting images; the lateral, third, and fourth ventricles are normal in size and position. Boone-white differentiation pattern is normal above and below the tentorium. There are is no evidence of intracranial hemorrhage. No mass, edema, infarction, or midline shift is seen. No extra-axial fluid collection is appreciated. IMPRESSION: There is some mucosal thickening in the maxillary sinuses bilaterally and in the ethmoid air cells bilaterally. Otherwise negative noncontrast head CT. Electronically Signed by Anshul Ness MD 09/26/2018 12:50 P
== END 2018-09-26 12:04 | disposition home or self-care (01) ==
LOC: M ED 09:45
DX: J01.90 Acute sinusitis, unspecified (principal); M79.10 Myalgia, unspecified site; R05 Cough; R49.0 Dysphonia; R50.9 Fever, unspecified; J45.909 Unspecified asthma, uncomplicated; F41.9 Anxiety disorder, unspecified; F90.9 Attention-deficit hyperactivity disorder, unspecified type; G43.909 Migraine, unspecified, not intractable, without status migrainosus; F31.9 Bipolar disorder, unspecified; K21.9 Gastro-esophageal reflux disease without esophagitis; F20.9 Schizophrenia, unspecified; R56.9 Unspecified convulsions; K58.9 Irritable bowel syndrome, unspecified; K27.9 Peptic ulcer, site unspecified, unspecified as acute or chronic, without hemorrhage or perforation; I50.9 Heart failure, unspecified; Z98.84 Bariatric surgery status; Z95.0 Presence of cardiac pacemaker; Z88.8 Allergy status to other drugs, medicaments and biological substances; Z91.030 Bee allergy status; Z91.013 Allergy to seafood; Z91.048 Other nonmedicinal substance allergy status; Z79.899 Other long term (current) drug therapy; Z79.82 Long term (current) use of aspirin

== ENCOUNTER 2018-10-07 16:31 | Emergency (ER) | payer MEDICARE, OTHER ==
[~2018-10-07] VITALS: Ht 154.9 cm; Wt 93.2 kg
[~2018-10-07 16:31] MED LIST changes: +AMOX500T PO; -LASI20TA PO; +LASI20TA3 PO; -NICO21DI5 TD; +NICO21DI6 TD; -PROM25TA GT; +PROM25TA12 GT
[2018-10-07 17:18] LABS: BASO # 0.1 10^3/uL (0.0-0.2); BASO % 0.8 % (0.0-1.0); EOS % 0.5 % (0.0-3.0); HEMOGLOBIN 13.2 g/dl (12.0-15.5); LYMPH # 1.4 10^3/uL (1.5-4.5); LYMPH % 17.1 % (24.0-44.0); MEAN CORPUSCULAR HEMOGLOBIN 28.8 pg (27.0-33.0); MEAN CORPUSCULAR HGB CONC 33.8 g/dl (32.0-36.5); MEAN CORPUSCULAR VOLUME 85.2 fl (80.0-96.0); MONO # 0.5 10^3/uL (0.0-0.8); MONO % 5.8 % (0.0-5.0); NEUTROPHILS # 5.9 10^3/uL (1.8-7.7); NEUTROPHILS % 74.4 % (36.0-66.0); PLATELET COUNT, AUTOMATED 242 10^3/uL (150-450); RED BLOOD COUNT 4.58 10^6/uL (4.00-5.40); WHITE BLOOD COUNT 7.9 10^3/uL (4.0-10.0)
[2018-10-07 17:57] LABS: BLOOD UREA NITROGEN 10 MG/DL (7-18); CALCIUM LEVEL 8.4 MG/DL (8.5-10.1); CARBON DIOXIDE LEVEL 24 MEQ/L (21-32); CHLORIDE LEVEL 108 MEQ/L (98-107); CK-MB VALUE MASS < 1.0 NG/ML (<3.6); CPK CREATINE PHOSPHOKINASE 63 U/L (26-192); CREATININE FOR GFR 0.82 MG/DL (0.55-1.30); GLOMERULAR FILTRATION RATE > 60.0 (>58); GLUCOSE, FASTING 100 MG/DL (70-100); MB/CK RELATIVE INDEX 1.59 (< OR =4); POTASSIUM SERUM 4.1 MEQ/L (3.5-5.1); SODIUM LEVEL 139 MEQ/L (136-145); TROPONIN I < 0.02 NG/ML (< 0.10)
[2018-10-07 18:21] VITALS: BP 135/77
--- NOTE | 2018-10-08 18:24 | ECGEPIP ---
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
== END 2018-10-07 18:40 | disposition home or self-care (01) ==
LOC: M ED 16:31 → EDBD 16:31 → M ED 18:40
DX: I47.1 Supraventricular tachycardia (principal); F17.210 Nicotine dependence, cigarettes, uncomplicated; Z95.0 Presence of cardiac pacemaker

== ENCOUNTER 2018-11-19 09:20 | Emergency (ER) | payer MEDICARE, OTHER ==
[~2018-11-19] VITALS: Ht 154.9 cm; Wt 90.9 kg
[2018-11-19 10:23] LABS: INFLUENZA A AMPLIFICATION POSITIVE (NEGATIVE); INFLUENZA B AMPLIFICATION NEGATIVE (NEGATIVE)
--- NOTE | 2018-11-19 10:27 | REP ---
Chest two views HISTORY: Cough Comparison: 09/12/2018 The lungs are clear. The heart is normal in size. The pulmonary vasculature is normal in appearance. The bony structure is intact. A cardiac pacemaker is present. IMPRESSION: No acute disease. Electronically Signed by Erasmo Walters MD 11/19/2018 10:18 A
[2018-11-19 10:47] LABS: MONO SCRN NEGATIVE (NEGATIVE)
[2018-11-19] MEDS ORDERED: IBUPROFEN 800 MG TAB As Ordered ONE (10:55)
[2018-11-19] MEDS ORDERED: IBUPROFEN 800 MG TAB PO ONE (11:00)
[2018-11-19 11:02] VITALS: BP 119/69
== END 2018-11-19 11:05 | disposition home or self-care (01) ==
LOC: M ED 09:20
DX: J09.X2 Influenza due to identified novel influenza A virus with other respiratory manifestations (principal); R05 Cough; M79.10 Myalgia, unspecified site; I49.5 Sick sinus syndrome; F17.200 Nicotine dependence, unspecified, uncomplicated

== ENCOUNTER 2019-01-09 21:08 | Emergency (ER) | payer MEDICARE, OTHER ==
[~2019-01-09] VITALS: Ht 154.9 cm; Wt 104.5 kg
[~2019-01-09 21:08] MED LIST changes: -/ESOM40CA; -/ONDA4TA PO; +ACET-716 PO; -ACET30TAB PO; +ASPI-1 PO; +ASPI-255 PO; -ASPI1TAB PO; -ASPI325T PO; -ASPI325T25 PO; +ASPI81TA26 PO; -DICY10CA PO; +DICY1CAP8 PO; -DULO30CA PO; +DULO30CA9 PO; +HYDR-3715 PO; -MAGN1TAB25 PO; +MAGN1TAB26 PO; +METO-346 PO; -METO25TAB PO; +NEXI1CAP3; -NORCOTAB PO; +ONDA-1 PO; -PERCOCET PO
--- NOTE | 2019-01-09 21:53 | REPVR ---
EXAM: CT Head Without Contrast EXAM DATE/TIME: 01/09/2019 9:25 PM CLINICAL HISTORY: 38 years old, female; Signs and symptoms; Numbness / parasthesia; Additional info: Numbness/tingling TECHNIQUE: Imaging protocol: Axial computed tomography images of the head/brain without contrast. Radiation optimization: All CT scans at this facility use at least one of these dose optimization techniques: automated exposure control; mA and/or kV adjustment per patient size (includes targeted exams where dose is matched to clinical indication); or iterative reconstruction. COMPARISON: CT Head without contrast 09/26/2018 11:18 AM FINDINGS: Brain: There is no evidence of intracranial bleed. Ventricles: Normal ventricles. Bones/joints: There is no evidence of fracture. Sinuses: Clear paranasal sinuses. Mastoid air cells: Clear mastoid air cells. Soft tissues: Unremarkable. IMPRESSION: 1. No evidence of intracranial bleed. 2. No evidence of mass effect. Electronically signed by: Ned Caballero On 01/09/2019 21:53:18 PM
[2019-01-09 22:00] LABS: BASO # 0.1 10^3/uL (0.0-0.2); BASO % 0.6 % (0.0-1.0); EOS # 0.2 10^3/uL (0.0-0.50); EOS % 1.3 % (0.0-3.0); HEMATOCRIT 39.3 % (36.0-47.0); HEMOGLOBIN 13.2 g/dl (12.0-15.5); LYMPH # 2.7 10^3/uL (1.5-4.5); LYMPH % 22.9 % (24.0-44.0); MEAN CORPUSCULAR HEMOGLOBIN 28.9 pg (27.0-33.0); MEAN CORPUSCULAR HGB CONC 33.6 g/dl (32.0-36.5); MONO # 0.6 10^3/uL (0.0-0.8); MONO % 5.1 % (0.0-5.0); NEUTROPHILS # 8.1 10^3/uL (1.8-7.7); NEUTROPHILS % 69.2 % (36.0-66.0); PLATELET COUNT, AUTOMATED 293 10^3/uL (150-450); RED BLOOD COUNT 4.57 10^6/uL (4.00-5.40); WHITE BLOOD COUNT 11.7 10^3/uL (4.0-10.0)
[2019-01-09 22:07] LABS: BLOOD UREA NITROGEN 11 MG/DL (7-18); CALCIUM LEVEL 8.5 MG/DL (8.5-10.1); CARBON DIOXIDE LEVEL 24 MEQ/L (21-32); CHLORIDE LEVEL 109 MEQ/L (98-107); GLOMERULAR FILTRATION RATE > 60.0 (>58); GLUCOSE, FASTING 140 MG/DL (70-100); SODIUM LEVEL 140 MEQ/L (136-145)
[2019-01-09 22:14] LABS: ABG BASE EXCESS -2.3 (-2.0-2.0); ABG HCO3 21.3 MEQ/L (22.0-26.0); ABG O2 SATURATION 96.5 % (95.0-99.0); ABG PARTIAL PRESSURE CO2 33.4 mmHg (35.0-45.0); ABG PARTIAL PRESSURE O2 85.9 mmHg (75.0-100.0); ABG STANDARD HCO3 22.5 MEQ/L (22.0-26.0); ABG TOTAL CO2 22.4 MEQ/L (22.0-29.0); ABG pH (ARTERIAL) 7.423 UNITS (7.350-7.450)
[2019-01-10 00:17] VITALS: BP 161/76
--- NOTE | 2019-01-10 10:39 | REP ---
Portable chest, 11:57 p.m., single AP sitting view: Comparison is 11/19/18. the lung gomez are clear. The cardiac size is normal. The nia, mediastinum, and skeletal structures are unremarkable. There is a dual-chamber pacemaker, unchanged. Impression: Negative portable chest. There is no interval change. Electronically Signed by Eric Taylor MD 01/10/2019 10:31 A
--- NOTE | 2019-01-10 21:49 | ECGEPIP ---
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
== END 2019-01-10 00:26 | disposition home or self-care (01) ==
LOC: M ED 21:08
DX: R06.4 Hyperventilation (principal); I11.9 Hypertensive heart disease without heart failure; I25.10 Atherosclerotic heart disease of native coronary artery without angina pectoris; G43.909 Migraine, unspecified, not intractable, without status migrainosus; F31.9 Bipolar disorder, unspecified; I67.1 Cerebral aneurysm, nonruptured; Z95.0 Presence of cardiac pacemaker; Z98.84 Bariatric surgery status; Z88.8 Allergy status to other drugs, medicaments and biological substances; Z91.013 Allergy to seafood; Z91.030 Bee allergy status; Z91.048 Other nonmedicinal substance allergy status; Z79.899 Other long term (current) drug therapy; Z79.82 Long term (current) use of aspirin

== ENCOUNTER 2019-01-31 11:01 | Emergency (ER) | payer MEDICARE, OTHER ==
[~2019-01-31] VITALS: Ht 152.4 cm; Wt 102.0 kg
[2019-01-31] MEDS ORDERED: PENI500T PO (11:12)
[2019-01-31] MEDS ORDERED: ASPIRIN 81 MG CHEW TABLET PO ONE (11:45)
[2019-01-31 12:14] LABS: BASO # 0.1 10^3/uL (0.0-0.2); BASO % 0.8 % (0.0-1.0); EOS # 0.2 10^3/uL (0.0-0.50); EOS % 2.1 % (0.0-3.0); HEMATOCRIT 38.9 % (36.0-47.0); HEMOGLOBIN 13.2 g/dl (12.0-15.5); LYMPH # 2.2 10^3/uL (1.5-4.5); LYMPH % 28.7 % (24.0-44.0); MEAN CORPUSCULAR HEMOGLOBIN 28.3 pg (27.0-33.0); MEAN CORPUSCULAR HGB CONC 33.9 g/dl (32.0-36.5); MEAN CORPUSCULAR VOLUME 83.5 fl (80.0-96.0); MONO # 0.5 10^3/uL (0.0-0.8); MONO % 6.1 % (0.0-5.0); NEUTROPHILS # 4.6 10^3/uL (1.8-7.7); NEUTROPHILS % 60.8 % (36.0-66.0); PLATELET COUNT, AUTOMATED 285 10^3/uL (150-450); RED BLOOD COUNT 4.66 10^6/uL (4.00-5.40); WHITE BLOOD COUNT 7.6 10^3/uL (4.0-10.0)
[2019-01-31 12:27] LABS: PARTIAL THROMBOPLASTIN TIME 27.1 SECONDS (25.4-37.6)
[2019-01-31 12:30] LABS: D-DIMER QUANT 339.38 ng/ml (<500)
[2019-01-31 12:42] LABS: HCG, SERUM QUALITATIVE NEGATIVE (NEGATIVE)
[2019-01-31 12:51] LABS: ALBUMIN 3.6 GM/DL (3.2-5.2); ALT/SGPT 443 U/L (12-78); BILIRUBIN,DIRECT 0.4 MG/DL (0.0-0.2); BILIRUBIN,TOTAL 0.9 MG/DL (0.2-1.0); BLOOD UREA NITROGEN 10 MG/DL (7-18); CALCIUM LEVEL 7.9 MG/DL (8.5-10.1); CARBON DIOXIDE LEVEL 24 MEQ/L (21-32); CHLORIDE LEVEL 103 MEQ/L (98-107); CK-MB VALUE MASS < 1.0 NG/ML (<3.6); CPK CREATINE PHOSPHOKINASE 122 U/L (26-192); GLOMERULAR FILTRATION RATE > 60.0 (>58); GLUCOSE, FASTING 118 MG/DL (70-100); LIPASE 45 U/L (73-393); MB/CK RELATIVE INDEX 0.82 (< OR =4); NT-PRO BNP 17 PG/ML (<125); POTASSIUM SERUM 3.6 MEQ/L (3.5-5.1); SODIUM LEVEL 135 MEQ/L (136-145); TOTAL PROTEIN 7.4 GM/DL (6.4-8.2); TROPONIN I < 0.02 NG/ML (< 0.10)
--- NOTE | 2019-01-31 13:29 | REP ---
Chest one-view HISTORY: Chest pain Comparison: 01/09/2019 The lungs are clear. The heart is normal in size. The pulmonary vasculature is normal in appearance. A cardiac pacemaker is present. Impression: No acute disease. Electronically Signed by Erasmo Walters MD 01/31/2019 01:20 P
[2019-01-31] MEDS ORDERED: KETOROLAC 30 MG/ML VIAL (J1885) IV ONE (13:30)
[2019-01-31] MEDS ORDERED: ONDANSETRON 4MG/2ML VIAL (J2405) IV ONE (13:30)
--- NOTE | 2019-01-31 13:58 | REP ---
CT ABDOMEN AND PELVIS WITHOUT CONTRAST: CT abdomen and pelvis performed without oral or IV contrast. Sagittal and coronal reconstruction images are performed. Visualized lung bases demonstrate no evidence of acute infiltrate. The liver is grossly unremarkable in appearance. Patient has had a prior cholecystectomy. I do not see evidence of biliary dilatation. The spleen, adrenals, pancreas and kidneys are grossly unremarkable. There is no renal or ureteral calculus. There is no hydroureteronephrosis. There is no abdominal aortic aneurysm. I see no adenopathy. There is no free air or free fluid. No bowel wall thickening is seen. The patient has had prior gastric surgery. Patient has had a hysterectomy and appendectomy. Right ovary is seen superiorly in the anterior aspect of the pelvis and contains a cyst 2.3 cm in diameter. Urinary bladder is not distended and not well evaluated. IMPRESSION: Right ovarian cyst measures 2.3 cm in diameter. No other acute finding identified. No free air or free fluid. No hydronephrosis or nephrolithiasis. Electronically Signed by Eric Boone MD 02/01/2019 02:52 P
[2019-01-31 14:02] LABS: MONO REFLEX EBV COMP NEGATIVE (NEGATIVE)
[2019-01-31] MEDS ORDERED: REGL10TA6 PO (14:20)
[2019-01-31] MEDS ORDERED: ZITHTAB PO (14:20)
[2019-01-31 14:45] VITALS: BP 117/69
[2019-01-31] MEDS ORDERED: KETO10TAB PO (14:47)
[2019-01-31 15:09] LABS: HEPATITIS A ANTIBODY IGM NEGATIVE (NEGATIVE); HEPATITIS B CORE ANTIBODY IGM NEGATIVE (NEGATIVE); HEPATITIS B SURFACE ANTIGEN NEGATIVE (NEGATIVE); HEPATITIS C VIRUS ABY INDEX < 0.0 INDEX (<0.8)
--- NOTE | 2019-01-31 19:42 | ECGEPIP ---
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 Order Number: [id number] Reading MD: Pepper Schrader Measurements Intervals [place] Rate: 86 P: 78 HI: 165 QRS: -16 QRSD: 84 T: 48 QT: 349 QTc: 418 Interpretive Statements ELECTRONIC ATRIAL PACEMAKER ABNORMAL RHYTHM ECG CW 01/09/19 RATE INCREASED Electronically Signed On 01-31-2019 19:42:19 EDT by Pepper Schrader
[2019-02-02 00:07] LABS: EBV VIRAL CAPSID AG IgM <36.0 U/mL (0.0-35.9)
[2019-02-05 00:07] LABS: CMV QUANT DNA PCR (PLASMA) Negative (Negative)
== END 2019-01-31 14:58 | disposition home or self-care (01) ==
LOC: M ED 11:01
DX: N83.201 Unspecified ovarian cyst, right side (principal); R94.5 Abnormal results of liver function studies; R11.2 Nausea with vomiting, unspecified; R19.7 Diarrhea, unspecified; R21 Rash and other nonspecific skin eruption; R00.2 Palpitations; I11.0 Hypertensive heart disease with heart failure; E78.5 Hyperlipidemia, unspecified; G43.909 Migraine, unspecified, not intractable, without status migrainosus; I49.5 Sick sinus syndrome; Z95.0 Presence of cardiac pacemaker; K21.9 Gastro-esophageal reflux disease without esophagitis; I50.9 Heart failure, unspecified; I63.9 Cerebral infarction, unspecified; G81.94 Hemiplegia, unspecified affecting left nondominant side; Z87.42 Personal history of other diseases of the female genital tract; Z85.41 Personal history of malignant neoplasm of cervix uteri; Z87.891 Personal history of nicotine dependence; Z88.8 Allergy status to other drugs, medicaments and biological substances; Z91.013 Allergy to seafood; Z91.030 Bee allergy status; Z91.048 Other nonmedicinal substance allergy status
CPT/HCPCS: 71045; 74176; 80048; 80076; 81001; 82550; 82553; 83690; 83880; 84443; 84484; 84703; 85025; 85379; 85730; 86308; 86663; 86664; 86665; 86705; 86709; 86803; 87088; 87186; 87340; 87497; 93005; 93041; 94760; 96374; 96375; 99285; J1885; J2405

== ENCOUNTER 2019-02-10 09:04 | Emergency (ER) | payer MEDICARE, OTHER ==
[~2019-02-10] VITALS: Ht 154.9 cm; Wt 100.5 kg
[~2019-02-10 09:04] MED LIST changes: +PENI500T PO; +ZITHTAB PO
[2019-02-10 09:05] VITALS: BP 164/115
[2019-02-10] MEDS ORDERED: DULO1CAP2 PO (09:15)
[2019-02-10] MEDS ORDERED: ECOT81TA5 PO (09:15)
--- NOTE | 2019-02-10 10:32 | ED PDOC ---
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 Newman would be in shortly. She stated she "might leave, I don't know". Upon his entering her examination room, she was no longer present, at 1019h, her exam gown on the stretcher. She did not inform staff of her leaving. Som Boucher M.D. February 10, 2019 10:31
== END 2019-02-10 10:37 | disposition left against medical advice (07) ==
LOC: M ED 09:04
DX: Z53.21 Procedure and treatment not carried out due to patient leaving prior to being seen by health care provider (principal)

== ENCOUNTER 2019-03-11 18:05 | Emergency (ER) | payer MEDICARE, OTHER ==
[~2019-03-11] VITALS: Ht 154.9 cm; Wt 99.5 kg
[~2019-03-11 18:05] MED LIST changes: +DULO1CAP2 PO; +ECOT81TA5 PO; -TRAZ-160 PO; +TRAZ-252 PO
[2019-03-11 18:06] VITALS: BP 128/90
[2019-03-11] MEDS ORDERED: FURO20TA2 (18:14)
[2019-03-11] MEDS ORDERED: TRAM37.53 (18:14)
[2019-03-11] MEDS ORDERED: ACET1TAB55 (18:14)
[2019-03-11] MEDS ORDERED: ONDA4TAB5 (18:14)
[2019-03-11] MEDS ORDERED: IBUP-1022 PO (18:14)
[2019-03-11] MEDS ORDERED: CYAN1000VL (18:14)
[2019-03-11] MEDS ORDERED: B-2100TA (18:14)
[2019-03-11] MEDS ORDERED: HYDR-3363 (18:14)
[2019-03-11] MEDS ORDERED: METH18TA2 (18:14)
[2019-03-11] MEDS ORDERED: DULO1CAP3 (18:14)
[2019-03-11] MEDS ORDERED: MAGN400T (18:14)
== END 2019-03-11 20:02 | disposition left against medical advice (07) ==
LOC: M ED 18:05
DX: M25.551 Pain in right hip (principal); M79.651 Pain in right thigh; M79.661 Pain in right lower leg; I11.0 Hypertensive heart disease with heart failure; I50.9 Heart failure, unspecified; I49.5 Sick sinus syndrome; Z95.0 Presence of cardiac pacemaker; G43.909 Migraine, unspecified, not intractable, without status migrainosus; Z85.41 Personal history of malignant neoplasm of cervix uteri; Z86.711 Personal history of pulmonary embolism; Z86.718 Personal history of other venous thrombosis and embolism; F17.210 Nicotine dependence, cigarettes, uncomplicated; Z88.0 Allergy status to penicillin; Z88.8 Allergy status to other drugs, medicaments and biological substances; Z91.013 Allergy to seafood; Z91.030 Bee allergy status; Z91.048 Other nonmedicinal substance allergy status; Z79.899 Other long term (current) drug therapy

== ENCOUNTER 2019-03-11 20:54 | Emergency (ER) | payer MEDICARE, OTHER ==
[~2019-03-11] VITALS: Ht 154.9 cm; Wt 120.0 kg
[~2019-03-11 20:54] MED LIST changes: +ACET1TAB55; +B-2100TA; +DULO1CAP3; +FURO20TA2; +IBUP-1022 PO; +MAGN400T; +METH18TA2; +ONDA4TAB5; +TRAM37.53
[2019-03-11 20:55] VITALS: BP 134/67
--- NOTE | 2019-03-11 22:43 | REPVR ---
EXAM: US Duplex Right Lower Extremity Veins, Limited EXAM DATE/TIME: 03/11/2019 10:15 PM CLINICAL HISTORY: 38 years old, female; Pain; Leg, upper; Right; Additional info: Rle pain/swelling, h/o clots TECHNIQUE: Imaging protocol: Real-time Duplex ultrasound of the Right Lower Extremity with 2-D shook scale, color Doppler flow and spectral waveform analysis. Limited exam was focused on the right lower extremity veins. COMPARISON: No relevant prior studies available. FINDINGS: Right deep veins: Unremarkable. The common femoral, femoral and popliteal veins are patent without thrombus. Normal Doppler waveforms. Normal compressibility and/or augmentation response. Right superficial veins: Unremarkable. Saphenofemoral junction is patent without thrombus. Soft tissues: Unremarkable. IMPRESSION: No sonographic evidence of deep vein thrombosis. Electronically signed by: Sergei Schumacher On 03/11/2019 22:42:40 PM
== END 2019-03-11 23:38 | disposition left against medical advice (07) ==
LOC: M ED 20:54
DX: M79.661 Pain in right lower leg (principal); M79.89 Other specified soft tissue disorders; I11.0 Hypertensive heart disease with heart failure; I50.9 Heart failure, unspecified; I49.5 Sick sinus syndrome; Z95.0 Presence of cardiac pacemaker; G43.909 Migraine, unspecified, not intractable, without status migrainosus; Z85.41 Personal history of malignant neoplasm of cervix uteri; Z86.711 Personal history of pulmonary embolism; Z86.718 Personal history of other venous thrombosis and embolism; F17.210 Nicotine dependence, cigarettes, uncomplicated; Z88.0 Allergy status to penicillin; Z88.8 Allergy status to other drugs, medicaments and biological substances; Z91.013 Allergy to seafood; Z91.030 Bee allergy status; Z91.048 Other nonmedicinal substance allergy status; Z79.899 Other long term (current) drug therapy; Z98.84 Bariatric surgery status

== ENCOUNTER 2019-04-13 14:37 | Emergency (ER) | payer MEDICARE, OTHER ==
[~2019-04-13] VITALS: Ht 154.9 cm; Wt 103.6 kg
[~2019-04-13 14:37] MED LIST changes: -DULO1CAP2 PO; -DULO1CAP3; +DULO1CAP5 PO; +DULO1CAP6
[2019-04-13] MEDS ORDERED: BENA25CA4 PO (14:54)
[2019-04-13 15:22] LABS: BASO # 0.1 10^3/uL (0.0-0.2); BASO % 0.7 % (0.0-1.0); EOS # 0.3 10^3/uL (0.0-0.50); EOS % 1.9 % (0.0-3.0); HEMATOCRIT 41.9 % (36.0-47.0); HEMOGLOBIN 14.3 g/dl (12.0-15.5); LYMPH # 3.2 10^3/uL (1.5-4.5); LYMPH % 24.8 % (24.0-44.0); MEAN CORPUSCULAR HEMOGLOBIN 29.5 pg (27.0-33.0); MEAN CORPUSCULAR HGB CONC 34.1 g/dl (32.0-36.5); MEAN CORPUSCULAR VOLUME 86.6 fl (80.0-96.0); MONO # 0.8 10^3/uL (0.0-0.8); MONO % 6.1 % (0.0-5.0); NEUTROPHILS # 8.6 10^3/uL (1.8-7.7); NEUTROPHILS % 65.7 % (36.0-66.0); PLATELET COUNT, AUTOMATED 392 10^3/uL (150-450); RED BLOOD COUNT 4.84 10^6/uL (4.00-5.40); WHITE BLOOD COUNT 13.1 10^3/uL (4.0-10.0)
[2019-04-13] MEDS ORDERED: METOCLOPRAMIDE INJ 10MG/2ML VIAL (J2765) IV ONE (15:30)
[2019-04-13] MEDS ORDERED: NS 1,000 ML IV ONE (15:30)
[2019-04-13 15:44] LABS: BLOOD UREA NITROGEN 11 MG/DL (7-18); CALCIUM LEVEL 8.7 MG/DL (8.5-10.1); CARBON DIOXIDE LEVEL 23 MEQ/L (21-32); CHLORIDE LEVEL 111 MEQ/L (98-107); CREATININE FOR GFR 0.87 MG/DL (0.55-1.30); GLOMERULAR FILTRATION RATE > 60.0 (>58); GLUCOSE, FASTING 134 MG/DL (70-100); POTASSIUM SERUM 4.4 MEQ/L (3.5-5.1); SODIUM LEVEL 140 MEQ/L (136-145)
[2019-04-13 15:46] VITALS: BP 117/75
[2019-04-13 16:24] LABS: INR 1.01; PARTIAL THROMBOPLASTIN TIME 28.3 SECONDS (25.0-38.4)
--- NOTE | 2019-04-14 08:10 | REP ---
CT BRAIN WITHOUT CONTRAST: HISTORY: Headache. History of CVA. Comparison is made with multiple prior studies most recent which is from January 09, 2019. The most remote is from June 10, 2017. FINDINGS: Bony calvarium is intact. There is a stable 30 mm retention cyst on the left side involving the posterior ethmoid sinus. This is unchanged from prior studies dating back to June 20, 2017. The visualized paranasal sinuses are otherwise clear. No intraorbital abnormality is seen. On soft tissue window settings, the lateral, third, and fourth ventricles are normal in size and position. Boone-white differentiation pattern is normal above below the tentorium. There is no evidence of intracranial hemorrhage. No mass, infarct, extra-axial fluid collection, or midline shift is appreciated. IMPRESSION: No acute intracranial abnormality. Stable mucous retention cyst in one of the posterior ethmoid air cells on the left side. Electronically Signed by Anshul Ness MD 04/14/2019 08:40 A
== END 2019-04-13 16:45 | disposition home or self-care (01) ==
LOC: M ED 14:37
DX: R51 Headache (principal); I10 Essential (primary) hypertension; Z86.73 Personal history of transient ischemic attack (TIA), and cerebral infarction without residual deficits; F31.9 Bipolar disorder, unspecified; M54.2 Cervicalgia; F41.9 Anxiety disorder, unspecified; K58.9 Irritable bowel syndrome, unspecified; F90.9 Attention-deficit hyperactivity disorder, unspecified type; Z98.84 Bariatric surgery status; Z95.0 Presence of cardiac pacemaker; F17.200 Nicotine dependence, unspecified, uncomplicated
CPT/HCPCS: 36415; 70450; 80048; 85025; 85610; 85730; 93041; 94760; 96361; 96374; 99284; J2765

== ENCOUNTER → 2019-04-22 | Outpatient (CLI) | payer MEDICARE, OTHER ==
[~2019-04-22] MED LIST changes: +BENA25CA4 PO; -METH18TA2; +METH18TA6
== END ==
LOC: M SMT 08:58
PROVIDERS: ATTEND Advanced Practice Midwife
DX: Z13.79 Encounter for other screening for genetic and chromosomal anomalies (principal)

== ENCOUNTER 2019-07-11 16:36 | Emergency (ER) | payer MEDICARE, OTHER ==
[~2019-07-11] VITALS: Ht 154.9 cm; Wt 104.5 kg
[~2019-07-11 16:36] MED LIST changes: +AMPH1CAP16 PO; -AMPH20CA PO; -DULO1CAP6; +DULO1CAP6 PO; +FENO48TA13 PO; -FENO48TA2 PO; -MAGN400T; +MAGN400T3; -OMEP40CA2 PO; +OMEP40CA97 PO
[2019-07-11] MEDS ORDERED: LIDO5DIS41 TOP (17:20)
[2019-07-11] MEDS ORDERED: HYDR-3713 PO (17:20)
[2019-07-11] MEDS ORDERED: NITR4TASL SL (17:20)
[2019-07-11] MEDS ORDERED: IBUP80TA PO (17:20)
--- NOTE | 2019-07-11 17:32 | REP ---
HISTORY: Chest pain. COMPARISON: Multiple, the latest 01/31/2019. The technique utilized in obtaining the radiograph has magnified the cardiac silhouette and accentuated the interstitial markings. The superior mediastinal structures are midline. The cardiac silhouette is unremarkable in size, shape, and position. The diaphragmatic surfaces of the lungs are regular, and the costophrenic angles are clear. The pulmonary gomez are clear. The imaged osseous structures are intact. IMPRESSION: There is no acute cardiopulmonary disease. No change from the prior exam. No change in the dual chamber bipolar pacemaker device. Electronically Signed by Ronnie Hurley DO 07/11/2019 07:49 P
[2019-07-11 17:40] LABS: BASO # 0.1 10^3/uL (0.0-0.2); BASO % 0.6 % (0.0-1.0); EOS # 0.3 10^3/uL (0.0-0.5); EOS % 2.7 % (0.0-3.0); HEMATOCRIT 36.1 % (36.0-47.0); LYMPH # 2.3 10^3/uL (1.5-5.0); LYMPH % 22.6 % (24.0-44.0); MEAN CORPUSCULAR HEMOGLOBIN 28.8 pg (27.0-33.0); MEAN CORPUSCULAR HGB CONC 33.2 g/dl (32.0-36.5); MEAN CORPUSCULAR VOLUME 86.8 fl (80.0-96.0); MONO # 0.5 10^3/uL (0.0-0.8); MONO % 4.5 % (0.0-5.0); NEUTROPHILS # 7.1 10^3/uL (1.5-8.5); NEUTROPHILS % 68.9 % (36.0-66.0); PLATELET COUNT, AUTOMATED 279 10^3/uL (150-450); RED BLOOD COUNT 4.16 10^6/uL (4.00-5.40); WHITE BLOOD COUNT 10.3 10^3/uL (4.0-10.0)
[2019-07-11 18:08] LABS: BLOOD UREA NITROGEN 11 MG/DL (7-18); CALCIUM LEVEL 8.2 MG/DL (8.5-10.1); CARBON DIOXIDE LEVEL 26 MEQ/L (21-32); CHLORIDE LEVEL 106 MEQ/L (98-107); CK-MB VALUE MASS < 1.0 NG/ML (<3.6); CPK CREATINE PHOSPHOKINASE 108 U/L (26-192); CREATININE FOR GFR 0.93 MG/DL (0.55-1.30); GLOMERULAR FILTRATION RATE > 60.0 (>58); GLUCOSE, FASTING 154 MG/DL (70-100); MB/CK RELATIVE INDEX 0.93 (< OR =4); POTASSIUM SERUM 3.8 MEQ/L (3.5-5.1); SODIUM LEVEL 139 MEQ/L (136-145); TROPONIN I < 0.02 NG/ML (< 0.10)
[2019-07-11] MEDS ORDERED: GI COCKTAIL 50ML BTL(HYOSCYAMINE/MAALOX/LIDOCAINE VISCOUS)(1:3:1) PO ONE (18:45)
[2019-07-11 18:57] LABS: ALBUMIN 3.6 GM/DL (3.2-5.2); ALT/SGPT 74 U/L (12-78); AMYLASE 21 U/L (25-115); BILIRUBIN,DIRECT < 0.1 MG/DL (0.0-0.2); BILIRUBIN,TOTAL 0.3 MG/DL (0.2-1.0); LIPASE 37 U/L (73-393); TOTAL PROTEIN 6.8 GM/DL (6.4-8.2)
--- NOTE | 2019-07-11 19:07 | ECGEPIP ---
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
[2019-07-11 19:45] VITALS: BP 132/75
[2019-07-11] MEDS ORDERED: DICYCLOMINE 10 MG CAP PO ONE (19:45)
[2019-07-11] MEDS ORDERED: DICY10CA13 PO (20:06)
== END 2019-07-11 20:24 | disposition home or self-care (01) ==
LOC: M ED 16:36
DX: K29.70 Gastritis, unspecified, without bleeding (principal); I25.10 Atherosclerotic heart disease of native coronary artery without angina pectoris; F41.9 Anxiety disorder, unspecified; F90.9 Attention-deficit hyperactivity disorder, unspecified type; Z79.899 Other long term (current) drug therapy; Z88.0 Allergy status to penicillin; Z88.8 Allergy status to other drugs, medicaments and biological substances; Z91.018 Allergy to other foods; Z91.030 Bee allergy status; F17.210 Nicotine dependence, cigarettes, uncomplicated

== ENCOUNTER → 2019-07-31 | Outpatient (CLI) | payer MEDICARE, OTHER ==
[~2019-07-31] MED LIST changes: +DICY10CA13 PO; +HYDR-3713 PO; +IBUP80TA PO; +LIDO5DIS41 TOP; +NITR4TASL SL
[2019-07-31 12:08] LABS: BASO # 0.1 10^3/uL (0.0-0.2); BASO % 0.6 % (0.0-1.0); EOS # 0.3 10^3/uL (0.0-0.5); EOS % 3.3 % (0.0-3.0); HEMATOCRIT 42.9 % (36.0-47.0); HEMOGLOBIN 13.5 g/dl (12.0-15.5); LYMPH # 2.6 10^3/uL (1.5-5.0); LYMPH % 28.1 % (24.0-44.0); MEAN CORPUSCULAR HEMOGLOBIN 27.2 pg (27.0-33.0); MEAN CORPUSCULAR HGB CONC 31.5 g/dl (32.0-36.5); MEAN CORPUSCULAR VOLUME 86.3 fl (80.0-96.0); MONO # 0.5 10^3/uL (0.0-0.8); MONO % 5.2 % (0.0-5.0); NEUTROPHILS # 5.6 10^3/uL (1.5-8.5); NEUTROPHILS % 61.9 % (36.0-66.0); PLATELET COUNT, AUTOMATED 334 10^3/uL (150-450); RED BLOOD COUNT 4.97 10^6/uL (4.00-5.40); WHITE BLOOD COUNT 9.1 10^3/uL (4.0-10.0)
[2019-07-31 12:32] LABS: ALT/SGPT 151 U/L (12-78); BILIRUBIN,TOTAL 0.3 MG/DL (0.2-1.0); BLOOD UREA NITROGEN 12 MG/DL (7-18); CALCIUM LEVEL 9.1 MG/DL (8.5-10.1); CARBON DIOXIDE LEVEL 22 MEQ/L (21-32); CHLORIDE LEVEL 112 MEQ/L (98-107); CREATININE FOR GFR 0.89 MG/DL (0.55-1.30); GLOMERULAR FILTRATION RATE > 60.0 (>58); GLUCOSE, FASTING 98 MG/DL (70-100); POTASSIUM SERUM 4.2 MEQ/L (3.5-5.1); SODIUM LEVEL 140 MEQ/L (136-145); TOTAL PROTEIN 7.9 GM/DL (6.4-8.2)
== END ==
LOC: M LAB 10:46
PROVIDERS: ATTEND Physician Assistant Medical
DX: R11.2 Nausea with vomiting, unspecified (principal)

== ENCOUNTER 2019-08-08 12:30 | Day surgery (SDC) | payer MEDICARE, OTHER ==
[~2019-08-08] VITALS: Ht 154.9 cm; Wt 102.1 kg
[~2019-08-08 12:30] MED LIST changes: +ASPI-263 PO; -FURO20TA2; +FURO20TA2 PO; +LEVO500T3 PO; -MAGN400T3; +MAGN400T3 PO; +NS 1,000 ML IV ONE; +PRIL20TA2 PO; +PROT20TA11 PO; +RITA10TA PO
[2019-08-08] MEDS ORDERED: PROPOFOL 500 MG/50 ML VIAL As Ordered ONE (13:50)
[2019-08-08] MEDS ORDERED: LIDOCAINE 2% INJ 100 MG/5 ML SDV (FOR ANES.) As Ordered ONE (13:50)
[2019-08-08] MEDS ORDERED: fentaNYL 100 MCG/2 ML INJECTION (J3010) As Ordered ONE (14:29)
[2019-08-08] MEDS ORDERED: PROPOFOL 200 MG/20 ML VIAL As Ordered ONE (14:40)
[2019-08-08] MEDS ORDERED: ONDANSETRON 4MG/2ML VIAL (J2405) As Ordered ONE (14:59)
--- NOTE | 2019-08-08 15:34 | ROOR ---
Patient Name: Suyapa Shukri Procedure Date: 08/08/2019 2:24 PM Date of : 1980 Age: 39 Room: [facility] Gender: Female Note Status: Finalized Procedure: Upper GI endoscopy Indications: Dysphagia Providers: Yariel Bernabe MD Referring MD: PARVIN CATALAN MD Requesting Provider: Medicines: Monitored Anesthesia Care Complications: No immediate complications. Procedure: Pre-Anesthesia Assessment: - Prior to the procedure, a History and Physical was performed, and patient medications and allergies were reviewed. The patient is competent. The risks and benefits of the procedure and the sedation options and risks were discussed with the patient. All questions were answered and informed consent was obtained. Patient identification and proposed procedure were verified by the physician, the nurse and the anesthesiologist in the procedure room. Mental Status Examination: alert and oriented. Airway Examination: normal oropharyngeal airway and neck mobility. Respiratory Examination: clear to auscultation. CV Examination: normal. Prophylactic Antibiotics: The patient does not require prophylactic antibiotics. Prior Anticoagulants: The patient has taken no previous anticoagulant or antiplatelet agents. ASA Grade Assessment: II - A patient with mild systemic disease. After reviewing the risks and benefits, the patient was deemed in satisfactory condition to undergo the procedure. The anesthesia plan was to use monitored anesthesia care (MAC). Immediately prior to administration of medications, the patient was re-assessed for adequacy to receive sedatives. The heart rate, respiratory rate, oxygen saturations, blood pressure, adequacy of pulmonary ventilation, and response to care were monitored throughout the procedure. The physical status of the patient was re-assessed after the procedure. The Endoscope was introduced through the mouth, and advanced to the second part of duodenum. The upper GI endoscopy was accomplished without difficulty. The patient tolerated the procedure well. Findings: The examined esophagus was normal. Several biopsies were obtained in the middle third of the esophagus with cold forceps for evaluation of eosinophilic esophagitis. Verification of patient identification for the specimen was done by the physician and nurse using the patient's name, date and medical record number. Estimated blood loss was minimal. No endoscopic abnormality was evident in the esophagus to explain the patient's complaint of dysphagia. 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 The gastrojejunal anastomosis was characterized by ulceration. The jejunojejunal anastomosis was characterized by healthy appearing mucosa. The nmetdutz-ec-jogvpzj limb was not examined as it could not be found. Biopsies were taken with a cold forceps for Helicobacter pylori testing. Biopsies were taken with a cold forceps for histology. The examined jejunum was normal. Impression: - Normal esophagus. - No endoscopic esophageal abnormality to explain patient's dysphagia. 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 Biopsied. - Normal examined jejunum. - Several biopsies were obtained in the middle third of the esophagus. Recommendation: - Patient has a contact number available for emergencies. The signs and symptoms of potential delayed complications were discussed with the patient. Return to normal activities tomorrow. Written discharge instructions were provided to the patient. - Resume previous diet. - Continue present medications. - Await pathology results. - Follow an antireflux regimen. - Use Protonix (pantoprazole) 40 mg PO twice daily - to be taken in morning (1/2 hour before breakfast) and at bedtime ( atleast 3 hours after last meal) for 8 weeks. ( instead of omeprazole 20 mg). - Telephone GI clinic for pathology results in 2 weeks. - Return to primary care physician. Yariel Bernabe MD Yariel Bernabe MD 08/08/2019 3:34:17 PM Electronically signed by Yariel Bernabe MD Number of Addenda: 0 Note Initiated On: 08/08/2019 2:24 PM Estimated Blood Loss: Estimated blood loss was minimal.
[2019-08-08 16:02] VITALS: BP 119/75
== END 2019-08-08 16:10 | disposition home or self-care (01) ==
LOC: M OPP 12:30
PROVIDERS: ATTEND Internal Medicine Gastroenterology
DX: Q24.9 Congenital malformation of heart, unspecified (principal); Z98.0 Intestinal bypass and anastomosis status; R13.10 Dysphagia, unspecified; I20.9 Angina pectoris, unspecified; E11.9 Type 2 diabetes mellitus without complications; F17.210 Nicotine dependence, cigarettes, uncomplicated; Z79.82 Long term (current) use of aspirin; Z79.899 Other long term (current) drug therapy; Z79.891 Long term (current) use of opiate analgesic; Z88.0 Allergy status to penicillin; Z91.030 Bee allergy status; Z91.013 Allergy to seafood; Z95.0 Presence of cardiac pacemaker
CPT/HCPCS: 43239; 88305; J3010

== ENCOUNTER → 2019-09-08 | Outpatient (CLI) | payer MEDICARE, OTHER ==
[~2019-09-08] MED LIST changes: +CHAN1PAK13 PO; +CLON0.5T2 PO; -CLON0.5T8 PO; +LUNE1TAB8 PO; -NS 1,000 ML IV ONE
[2019-09-08 14:00] LABS: ALBUMIN 3.7 GM/DL (3.2-5.2); ALT/SGPT 58 U/L (12-78); BILIRUBIN,TOTAL 0.3 MG/DL (0.2-1.0); BLOOD UREA NITROGEN 9 MG/DL (7-18); CALCIUM LEVEL 8.5 MG/DL (8.5-10.1); CARBON DIOXIDE LEVEL 25 MEQ/L (21-32); CHLORIDE LEVEL 109 MEQ/L (98-107); CHOLESTEROL LEVEL 182 MG/DL (<200); CREATININE FOR GFR 0.93 MG/DL (0.55-1.30); GLOMERULAR FILTRATION RATE > 60.0 (>58); GLUCOSE, FASTING 88 MG/DL (70-100); HDL CHOLESTEROL 28 MG/DL (>40); LDL CHOLESTEROL 80 MG/DL (<100); NON-HDL-C 154 MG/DL; POTASSIUM SERUM 4.2 MEQ/L (3.5-5.1); SODIUM LEVEL 140 MEQ/L (136-145); TOTAL PROTEIN 7.1 GM/DL (6.4-8.2); TRIGLYCERIDES LEVEL 371 MG/DL (<150)
== END ==
LOC: M PLALAB 09:28
PROVIDERS: ATTEND Physician Assistant
DX: E78.2 Mixed hyperlipidemia (principal)

== ENCOUNTER 2019-09-09 19:06 | Emergency (ER) | payer MEDICARE, OTHER ==
[~2019-09-09] VITALS: Ht 154.9 cm; Wt 95.9 kg
[~2019-09-09 19:06] MED LIST changes: -CHAN1PAK13 PO; -LUNE1TAB8 PO
[2019-09-09] MEDS ORDERED: LUNE1TAB8 PO (19:16)
[2019-09-09] MEDS ORDERED: CHAN1PAK13 PO (19:17)
[2019-09-09 19:18] VITALS: BP 115/56
== END 2019-09-09 21:49 | disposition home or self-care (01) ==
LOC: M ED 19:06
DX: M25.532 Pain in left wrist (principal); T76.11XA Adult physical abuse, suspected, initial encounter; Y04.8XXA Assault by other bodily force, initial encounter; Y07.499 Other family member, perpetrator of maltreatment and neglect; I25.10 Atherosclerotic heart disease of native coronary artery without angina pectoris; G43.909 Migraine, unspecified, not intractable, without status migrainosus; Z95.0 Presence of cardiac pacemaker; Z98.84 Bariatric surgery status; Z79.899 Other long term (current) drug therapy; Z79.82 Long term (current) use of aspirin; Z88.0 Allergy status to penicillin; Z88.8 Allergy status to other drugs, medicaments and biological substances; Z91.018 Allergy to other foods; Z91.030 Bee allergy status; Z91.040 Latex allergy status; F17.210 Nicotine dependence, cigarettes, uncomplicated

== ENCOUNTER → 2019-10-29 | Outpatient (CLI) | payer MEDICARE, OTHER ==
[~2019-10-29] MED LIST changes: +CHAN1PAK13 PO; -FENO48TA13 PO; +FENO48TA7 PO; +LUNE1TAB8 PO; +ONDA-83; +ONDA-83 PO; -ONDA4TAB5; -ONDA4TAB5 PO; +QUET100T2 PO; -QUET1TAB8 PO; +ZONI100C17 PO; -ZONI100C2 PO; +ZONI50CA11; +ZONI50CA11 PO; -ZONI50CA3; -ZONI50CA3 PO
--- NOTE | 2019-10-29 14:05 | REP ---
BILATERAL MAMMOGRAM WITH 3D TOMOSYNTHESIS AND BILATERAL BREAST ULTRASOUND: There is no family history of breast cancer. Tyrer-Cuzick lifetime risk of breast cancer 10.2%. Patient reports palpable lumps bilaterally, three on the right at 10 -o'clock, 2 -o'clock and 3 -o'clock positions and two on the left at 8-9 -o'clock and 12 -o'clock positions. These areas are marked on the skin. Initial spot compression views are performed bilaterally. COMPARISON: 02/23/2015 Mild scattered fibroglandular tissue was seen bilaterally but no suspicious density or architectural distortion. No nodule is seen. No clustered microcalcifications are seen. Small abnormal-appearing axillary lymph nodes are present. There appears to be a pacemaker partially visualized in the left axilla. Real-time sonographic evaluation bilateral breast performed at each of the five reported palpable lumps. No discrete cystis or solid mass is seen bilaterally. IMPRESSION: BIRADS 1: BI-RADS/ACR category 1 mammogram. Negative Mammogram. ACR 1 negative. No mass or clustered microcalcifications. There is no mammographic or sonographic evidence of a mass at the site of the reported palpable abnormalities bilaterally, three on the right and two on the left. A negative mammogram and ultrasound should not deter biopsy if there is a clinically suspicious palpable mass present. Recommend followup mammogram in one year. This mammogram was interpreted with the aid of an FDA-approved computer-aided detection system. A. Negative x-ray reports should not delay biopsy if a dominant or clinically suspicious mass is present. B. Four to eight percent of cancers are not identified by x-ray. C. Adenosis and dense breasts may obscure an underlying neoplasm. The patient states she/he had a clinical breast exam in August 2019. The patient letter being requested is M2 Electronically Signed by Eric Boone MD 10/29/2019 11:07 P
== END ==
LOC: M RAD 11:21
PROVIDERS: ATTEND Advanced Practice Midwife
DX: N64.4 Mastodynia (principal)
CPT/HCPCS: 76642; 77066; G0279

== ENCOUNTER 2019-11-14 19:52 | Emergency (ER) | payer MEDICARE, OTHER ==
[~2019-11-14] VITALS: Ht 154.9 cm; Wt 102.5 kg
[2019-11-14] MEDS ORDERED: METOCLOPRAMIDE INJ 10MG/2ML VIAL (J2765) IV ONE (20:30)
[2019-11-14] MEDS ORDERED: NS 1,000 ML IV ONE (20:30)
[2019-11-14 20:40] LABS: BASO # 0.1 10^3/uL (0.0-0.2); BASO % 0.7 % (0.0-1.0); EOS # 0.3 10^3/uL (0.0-0.5); EOS % 3.2 % (0.0-3.0); HEMATOCRIT 36.6 % (36.0-47.0); LYMPH # 2.7 10^3/uL (1.5-5.0); MEAN CORPUSCULAR HEMOGLOBIN 27.2 pg (27.0-33.0); MEAN CORPUSCULAR HGB CONC 32.8 g/dl (32.0-36.5); MONO # 0.6 10^3/uL (0.0-0.8); MONO % 5.7 % (0.0-5.0); NEUTROPHILS # 6.9 10^3/uL (1.5-8.5); NEUTROPHILS % 64.7 % (36.0-66.0); PLATELET COUNT, AUTOMATED 338 10^3/uL (150-450); RED BLOOD COUNT 4.41 10^6/uL (4.00-5.40); WHITE BLOOD COUNT 10.7 10^3/uL (4.0-10.0)
[2019-11-14 20:48] LABS: INR 1.1; PROTHROMBIN TIME 13.9 SECONDS (11.8-14.0)
[2019-11-14 20:49] LABS: PARTIAL THROMBOPLASTIN TIME 30.4 SECONDS (25.0-38.4)
[2019-11-14 21:09] LABS: ALBUMIN 3.9 GM/DL (3.2-5.2); ALT/SGPT 23 U/L (12-78); BILIRUBIN,DIRECT < 0.1 MG/DL (0.0-0.2); BILIRUBIN,TOTAL 0.2 MG/DL (0.2-1.0); LIPASE 34 U/L (73-393); MAGNESIUM LEVEL 2.3 MG/DL (1.8-2.4); TOTAL PROTEIN 7.3 GM/DL (6.4-8.2)
[2019-11-14] MEDS ORDERED: ISOVUE-370 76% 100ML VIAL (Q9967) As Ordered ONE (21:35)
[2019-11-14] MEDS ORDERED: methylPREDNISolone INJ 125 MG/2 ML VIAL (J2930) IV ONE (22:00)
[2019-11-14] MEDS ORDERED: diphenhydrAMINE INJ 50MG/ML VIAL (J1200) IV ONE (22:00)
--- NOTE | 2019-11-14 22:32 | REPVR ---
PROCEDURE INFORMATION: Exam: CT Abdomen And Pelvis With Contrast Exam date and time: 11/14/2019 9:54 PM Age: 39 years old Clinical indication: Abdominal pain; Generalized; Additional info: Abd pain, hematemesis, gastric bypass status TECHNIQUE: Imaging protocol: Computed tomography of the abdomen and pelvis with intravenous contrast. Radiation optimization: All CT scans at this facility use at least one of these dose optimization techniques: automated exposure control; mA and/or kV adjustment per patient size (includes targeted exams where dose is matched to clinical indication); or iterative reconstruction. Contrast material: ISOVUE 370; Contrast volume: 100 ml; Contrast route: IV; COMPARISON: CT ABD/PEL W/IV CONTRAST ONLY 08/28/2018 11:22 PM FINDINGS: Tubes, catheters and devices: Pacemaker in position. Lungs: Minimal right middle lobe fibro-atelectatic change. Liver: The liver attenuation is 57 Hounsfield units and the spleen is 118 Hounsfield units. Gallbladder and bile ducts: Status post cholecystectomy. Pancreas: Normal. No ductal dilation. Spleen: Normal. No splenomegaly. Adrenals: Normal. No mass. Kidneys and ureters: Normal. No hydronephrosis. Stomach and bowel: There has been gastric bypass with collapse of the bypassed stomach. Appendix: There are no changes of appendicitis. A normal appendix is not seen. Intraperitoneal space: Unremarkable. No free air. No significant fluid collection. Vasculature: Incidental note of a retroaortic left renal vein. Lymph nodes: Unremarkable. No enlarged lymph nodes. Bladder: Unremarkable as visualized. Reproductive: Status post hysterectomy. Bones/joints: Unremarkable. No acute fracture. Soft tissues: Unremarkable. Other findings: Gasper-en-Y in the upper left abdomen. IMPRESSION: 1. There has been little change from 08/28/2018. No acute interval process is identified. 2. There has been prior cholecystectomy, gastric bypass and hysterectomy. 3. Fatty infiltration of the liver. Electronically signed by: Kayden Olsen On 11/14/2019 22:31:43 PM
[2019-11-14] MEDS ORDERED: ONDA4TAB6 PO (23:26)
[2019-11-14 23:31] VITALS: BP 121/58
--- NOTE | 2019-11-15 05:40 | ECGEPIP ---
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
== END 2019-11-14 23:41 | disposition home or self-care (01) ==
LOC: M ED 19:52
DX: K52.9 Noninfective gastroenteritis and colitis, unspecified (principal); Z88.0 Allergy status to penicillin; Z88.8 Allergy status to other drugs, medicaments and biological substances; Z91.030 Bee allergy status; Z91.013 Allergy to seafood; Z98.84 Bariatric surgery status
CPT/HCPCS: 74177; 80047; 80076; 83690; 83735; 85025; 85610; 85730; 86850; 86900; 86901; 93005; 93041; 96361; 96374; 96375; 99285; J1200; J2765; J2930; Q9967

== ENCOUNTER → 2019-11-17 | Outpatient (CLI) | payer MEDICARE, OTHER ==
[~2019-11-17] MED LIST changes: +LUNE2TAB23 PO; +TOPA50TA8 PO
[2019-11-17 13:43] LABS: BASO # 0.1 10^3/uL (0.0-0.2); BASO % 0.6 % (0.0-1.0); EOS # 0.2 10^3/uL (0.0-0.5); EOS % 1.9 % (0.0-3.0); HEMATOCRIT 37.2 % (36.0-47.0); HEMOGLOBIN 12.1 g/dl (12.0-15.5); LYMPH # 2.3 10^3/uL (1.5-5.0); LYMPH % 29.6 % (24.0-44.0); MEAN CORPUSCULAR HEMOGLOBIN 27.7 pg (27.0-33.0); MEAN CORPUSCULAR HGB CONC 32.5 g/dl (32.0-36.5); MEAN CORPUSCULAR VOLUME 85.1 fl (80.0-96.0); MONO # 0.5 10^3/uL (0.0-0.8); MONO % 5.8 % (0.0-5.0); NEUTROPHILS # 4.8 10^3/uL (1.5-8.5); NEUTROPHILS % 61.2 % (36.0-66.0); PLATELET COUNT, AUTOMATED 307 10^3/uL (150-450); RED BLOOD COUNT 4.37 10^6/uL (4.00-5.40); WHITE BLOOD COUNT 7.8 10^3/uL (4.0-10.0)
[2019-11-17 14:01] LABS: ERYTHROCYTE SEDIMENTATION RATE 22 mm/hr (0-20)
[2019-11-17 14:11] LABS: C REACTIVE PROTEIN QUANTITATIV < 0.30 MG/DL (0.00-0.30); RHEUMATOID FACTOR QUANT < 10.0 IU/ML (<15.0); URIC ACID 4.3 MG/DL (2.6-6.0)
[2019-11-19 00:06] LABS: ANTINUCLEAR ANTIBODIES DIRECT Negative (Negative); Lyme Disease IgG/IgM Antibodie <0.91 ISR (0.00-0.90); Lyme Disease IgM Ab Quantitati <0.80 index (0.00-0.79)
== END ==
LOC: M PLALAB 12:07
PROVIDERS: ATTEND Surgery
DX: M25.532 Pain in left wrist (principal); Z15.09 Genetic susceptibility to other malignant neoplasm

== ENCOUNTER → 2019-11-26 | Outpatient (CLI) | payer MEDICARE, OTHER ==
[2019-11-26 08:56] VITALS: BP 108/72
--- NOTE | 2019-11-26 11:05 | REP ---
DIGITAL DIAGNOSTIC UNILATERAL RIGHT BREAST MAMMOGRAPHY: Two views. HISTORY: Marker clip placement mammography. Status post ultrasound-guided needle biopsy procedure right breast. Comparison mammography October 29, 2019. There was no mammographically visible abnormality. Palpable lump. FINDINGS: Craniocaudal and true mediolateral views of the right breast demonstrate the post biopsy marker clip medially in the right breast at approximately the 3-o'clock position. There is no visible hematoma. IMPRESSION: Medially positioned needle biopsy marker clip.
--- NOTE | 2019-11-26 18:52 | REP ---
Ultrasound guidance: History: Ultrasound-guided breast biopsy procedure. Findings: Sonographic guidance is provided to Dr. Baldwin who performed a right breast ultrasound guided needle biopsy and marker clip placement.
--- NOTE | 2019-11-26 20:56 | ROOPDOC ---
[facility] Report Of Operation Report of Operation DATE OF PROCEDURE: 11/26/19 PREPROCEDURE DIAGNOSES: Right breast mass POSTPROCEDURE DIAGNOSES: Right breast mass PROCEDURE: Ultrasound-guided right breast mass biopsy with clip placement SURGEON: Meliton Camara CLIENT EXPERIENCE MANAGER: ANESTHESIA: Local ESTIMATED BLOOD LOSS: Approximately 1 mL. COMPLICATIONS: None REMARKS: Post procedure mammogram show a clip in expected location. DESCRIPTION OF PROCEDURE: Lidocaine 1% LOT [id number] Expiration 11/2020 Sodium Bicarbonate 8.4% LOT [id number] Expiration 06/2021 Hydromark clip LOT [id number] Expiration 03/2022 REF [id number] titanium shape 4 (close coil) Bx device: BARD [id number] x10 cm LOT HUEN 1024 Expiration 08/2022 Informed consent was obtained. The most common risk and possible complications including bleeding, hematoma, bruising, infection, injury to surrounding structures were explained to the patient and she expressed understanding. Patient was taken to the procedure room and placed on the bed in the supine position with the right upper extremity placed above the head. Appropriate time out was done stating patients name, date of , and the procedure to be performed. The right breast was prepped and draped in the usual fashion. Palpation was used to confirm the location of the lesion in the right breast at 3:00 7centimeters from the nipple. Ultrasound was used to make sure surrounding structures were not injured as the palpable lesion was very medial. Plain Lidocaine 1% and 8.4% sodium bicarbonate 10:1 mix was used to numb the skin, the biopsy site and tissues along the anticipated biopsy tract. Small skin incision was made with blade number 11. BARD Marquee 14G cannula with introducer ([id number]) was inserted through the incision and advanced under the ultrasound guidance to position immediately adjacent to the lesion. Next, the introducer was removed and BARD Marquee 14G biopsy device was places in the cannula. Pre-biopsy imaging, and post-biopsy imaging were captured. Five good core biopsies were taken at various levels of the lesion. Specimen was placed in formaldehyde, labeled with appropriate biopsy site and patients name, and sent to pathology for evaluation. Next, the biopsy device was withdrawn and a clip introducer was inserted into the biopsy site via the cannula. The Hydromark clip was deployed under direct vision. Post-clip placement image was captured. Manual pressure over the biopsy cavity and tract was held after the clip introducer was withdrawn. No bleeding was noted upon removal of the pressure. Post-biopsy mammogram of the right breast was obtained and showed clip in expected position. Postprocedural dressing was placed. Patient tolerated procedure well. Discharge instructions were discussed with the patient and she expressed understanding. MELITON CAMARA DO Nov 26, 2019 20:56
== END ==
LOC: M WHCPRO 07:35
PROVIDERS: ATTEND Surgery
DX: N63.12 Unspecified lump in the right breast, upper inner quadrant (principal); N63.14 Unspecified lump in the right breast, lower inner quadrant; N64.1 Fat necrosis of breast

== ENCOUNTER → 2019-12-01 | Outpatient (CLI) | payer MEDICARE, OTHER ==
--- NOTE | 2019-12-01 12:37 | REP ---
TARGETED RIGHT RETROAREOLAR SONOGRAPHY. HISTORY: Unilateral right breast nipple discharge. FINDINGS: Retroareolar sonography of the right breast is performed. Heterogeneous fibroglandular background echotexture is seen. No cyst or mass is observed. IMPRESSION: BIRADS category 1 negative findings. Clinical follow-up is advised.
== END ==
LOC: M WHC 10:29
PROVIDERS: ATTEND Surgery
DX: N64.52 Nipple discharge (principal)

== ENCOUNTER → 2019-12-08 | Outpatient (CLI) | payer MEDICARE, OTHER ==
[2019-12-08 11:32] LABS: BASO # 0.1 10^3/uL (0.0-0.2); BASO % 0.5 % (0.0-1.0); EOS # 0.2 10^3/uL (0.0-0.5); HEMATOCRIT 37.4 % (36.0-47.0); HEMOGLOBIN 12.2 g/dl (12.0-15.5); LYMPH # 2.2 10^3/uL (1.5-5.0); LYMPH % 24.1 % (24.0-44.0); MEAN CORPUSCULAR HEMOGLOBIN 27.1 pg (27.0-33.0); MEAN CORPUSCULAR HGB CONC 32.6 g/dl (32.0-36.5); MEAN CORPUSCULAR VOLUME 83.1 fl (80.0-96.0); MONO # 0.5 10^3/uL (0.0-0.8); MONO % 5.3 % (0.0-5.0); NEUTROPHILS # 6.2 10^3/uL (1.5-8.5); NEUTROPHILS % 67.2 % (36.0-66.0); PLATELET COUNT, AUTOMATED 380 10^3/uL (150-450); WHITE BLOOD COUNT 9.2 10^3/uL (4.0-10.0)
[2019-12-08 12:47] LABS: ALT/SGPT 20 U/L (12-78); BILIRUBIN,DIRECT 0.1 MG/DL (0.0-0.2); BILIRUBIN,TOTAL 0.5 MG/DL (0.2-1.0); BLOOD UREA NITROGEN 12 MG/DL (7-18); FERRITIN 11 NG/ML (8-252); FOLATE 12.3 NG/ML (>5.4); GLOMERULAR FILTRATION RATE > 60.0 (>58); HEPATITIS B SURFACE ANTIBODY NEGATIVE (POSITIVE); IRON (FE) 57 UG/DL (50-170); PERCENT SATURATION 11.9 % (13.2-45.0); TOTAL IRON BINDING CAPACITY 480 UG/DL (250-450); TOTAL PROTEIN 7.5 GM/DL (6.4-8.2); VITAMIN B12 LEVEL 285 PG/ML (247-911)
[2019-12-08 13:13] LABS: CLOSTRIDIUM DIFFICILE PCR NEGATIVE (NEGATIVE)
== END ==
LOC: M LAB 10:37
PROVIDERS: ATTEND Internal Medicine Gastroenterology
DX: K86.81 Exocrine pancreatic insufficiency (principal); K92.0 Hematemesis; Z79.82 Long term (current) use of aspirin; Z11.59 Encounter for screening for other viral diseases

== ENCOUNTER 2019-12-13 12:30 | Emergency (ER) | payer MEDICARE, OTHER ==
[~2019-12-13] VITALS: Ht 154.9 cm; Wt 104.7 kg
[2019-12-13 13:10] LABS: BASO # 0.1 10^3/uL (0.0-0.2); BASO % 0.7 % (0.0-1.0); EOS # 0.2 10^3/uL (0.0-0.5); EOS % 2.5 % (0.0-3.0); HEMATOCRIT 35.8 % (36.0-47.0); HEMOGLOBIN 11.6 g/dl (12.0-15.5); LYMPH % 27.9 % (24.0-44.0); MEAN CORPUSCULAR HEMOGLOBIN 26.8 pg (27.0-33.0); MEAN CORPUSCULAR HGB CONC 32.4 g/dl (32.0-36.5); MEAN CORPUSCULAR VOLUME 82.7 fl (80.0-96.0); MONO # 0.4 10^3/uL (0.0-0.8); MONO % 5.6 % (0.0-5.0); NEUTROPHILS # 4.5 10^3/uL (1.5-8.5); NEUTROPHILS % 62.3 % (36.0-66.0); PLATELET COUNT, AUTOMATED 302 10^3/uL (150-450); RED BLOOD COUNT 4.33 10^6/uL (4.00-5.40); WHITE BLOOD COUNT 7.2 10^3/uL (4.0-10.0)
[2019-12-13 13:22] LABS: INR 0.99; PROTHROMBIN TIME 12.8 SECONDS (11.8-14.0)
[2019-12-13] MEDS ORDERED: OLAN15TA PO (13:28)
[2019-12-13] MEDS ORDERED: CLONI1TA PO (13:28)
[2019-12-13] MEDS ORDERED: INVE3TAB2 PO (13:28)
[2019-12-13] MEDS ORDERED: OMEP40CA97 PO (13:28)
[2019-12-13] MEDS ORDERED: ASPIRIN 81 MG CHEW TABLET PO ONE (13:30)
[2019-12-13] MEDS: NITROGLYCERIN 0.4 MG SUBL TABLET SL PRN ×2 (13:40→13:48)
[2019-12-13 13:42] LABS: ALBUMIN 3.4 GM/DL (3.2-5.2); ALT/SGPT 27 U/L (12-78); BILIRUBIN,DIRECT < 0.1 MG/DL (0.0-0.2); BILIRUBIN,TOTAL 0.2 MG/DL (0.2-1.0); BLOOD UREA NITROGEN 11 MG/DL (7-18); CALCIUM LEVEL 8.3 MG/DL (8.5-10.1); CARBON DIOXIDE LEVEL 22 MEQ/L (21-32); CHLORIDE LEVEL 111 MEQ/L (98-107); CK-MB VALUE MASS < 1.0 NG/ML (<3.6); CPK CREATINE PHOSPHOKINASE 58 U/L (26-192); CREATININE FOR GFR 0.85 MG/DL (0.55-1.30); GLOMERULAR FILTRATION RATE > 60.0 (>58); GLUCOSE, FASTING 154 MG/DL (70-100); LIPASE 54 U/L (73-393); MB/CK RELATIVE INDEX 1.72 (< OR =4); POTASSIUM SERUM 3.9 MEQ/L (3.5-5.1); SODIUM LEVEL 141 MEQ/L (136-145); TOTAL PROTEIN 6.9 GM/DL (6.4-8.2); TROPONIN I < 0.02 NG/ML (< 0.10)
[2019-12-13 13:48] VITALS: BP 104/63
--- NOTE | 2019-12-13 16:34 | REP ---
REASON: Chest pain. COMPARISON: Multiple, the latest 07/11/2019. The technique utilized in obtaining the radiograph has magnified the cardiac silhouette and accentuated the interstitial markings. The cardiac silhouette is magnified by technique. The dual-chamber bipolar pacemaker device is unchanged. The lung gomez are clear. The osseous structures are stable and intact. IMPRESSION: No acute cardiopulmonary disease. Unreviewed
--- NOTE | 2019-12-13 17:28 | ECGEPIP ---
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
[2019-12-13 19:52] LABS: CK-MB VALUE MASS < 1.0 NG/ML (<3.6); CPK CREATINE PHOSPHOKINASE 53 U/L (26-192); MB/CK RELATIVE INDEX 1.89 (< OR =4); TROPONIN I < 0.02 NG/ML (< 0.10)
[2019-12-13 20:15] VITALS: BP 102/55
--- NOTE | 2019-12-13 21:50 | ECGEPIP ---
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
== END 2019-12-13 20:35 | disposition home or self-care (01) ==
LOC: M ED 12:30
DX: R07.9 Chest pain, unspecified (principal); I11.9 Hypertensive heart disease without heart failure; G89.29 Other chronic pain; M54.5 Low back pain; D64.9 Anemia, unspecified; I49.5 Sick sinus syndrome; Z85.41 Personal history of malignant neoplasm of cervix uteri; F90.9 Attention-deficit hyperactivity disorder, unspecified type; Z95.0 Presence of cardiac pacemaker; F17.210 Nicotine dependence, cigarettes, uncomplicated; Z88.0 Allergy status to penicillin; Z88.8 Allergy status to other drugs, medicaments and biological substances; Z91.041 Radiographic dye allergy status; Z91.013 Allergy to seafood; Z91.030 Bee allergy status; Z79.82 Long term (current) use of aspirin; Z79.899 Other long term (current) drug therapy

== ENCOUNTER 2020-01-31 14:35 | Emergency (ER) | payer MEDICARE, OTHER ==
[~2020-01-31] VITALS: Ht 152.4 cm; Wt 105.1 kg
[~2020-01-31 14:35] MED LIST changes: +CLONI1TA PO; +INVE3TAB2 PO; +OLAN15TA PO
[2020-01-31] MEDS ORDERED: METF10004 (14:44)
[2020-01-31] MEDS ORDERED: NS 1,000 ML IV ONE (15:15)
[2020-01-31] MEDS ORDERED: diphenhydrAMINE 50MG/ML VIAL (J1200) IV STA ×2 (15:37→17:18)
[2020-01-31 15:43] LABS: BASO # 0.1 10^3/uL (0.0-0.2); BASO % 0.5 % (0.0-1.0); EOS # 0.1 10^3/uL (0.0-0.5); EOS % 1.1 % (0.0-3.0); HEMATOCRIT 37.5 % (36.0-47.0); HEMOGLOBIN 12.2 g/dl (12.0-15.5); LYMPH # 1.9 10^3/uL (1.5-5.0); LYMPH % 17.5 % (24.0-44.0); MEAN CORPUSCULAR HEMOGLOBIN 26.4 pg (27.0-33.0); MEAN CORPUSCULAR HGB CONC 32.5 g/dl (32.0-36.5); MEAN CORPUSCULAR VOLUME 81.2 fl (80.0-96.0); MONO # 0.6 10^3/uL (0.0-0.8); MONO % 5.6 % (0.0-5.0); NEUTROPHILS # 8.1 10^3/uL (1.5-8.5); NEUTROPHILS % 74.6 % (36.0-66.0); PLATELET COUNT, AUTOMATED 333 10^3/uL (150-450); RED BLOOD COUNT 4.62 10^6/uL (4.00-5.40); WHITE BLOOD COUNT 10.8 10^3/uL (4.0-10.0)
[2020-01-31] MEDS ORDERED: MORPHINE 4 MG/ML 1ML VIAL/SYRINGE (J2270) IV ONE (15:45)
[2020-01-31] MEDS ORDERED: methylPREDNISolone INJ 125 MG/2 ML VIAL (J2930) IV ONE (15:45)
[2020-01-31] MEDS ORDERED: ONDANSETRON 4MG/2ML VIAL IV ONE (15:45)
[2020-01-31 16:00] LABS: INR 1.11; PARTIAL THROMBOPLASTIN TIME 28.4 SECONDS (25.0-38.4)
--- NOTE | 2020-01-31 16:14 | REP ---
Clinical: Epigastric and abdominal pain. Technique: Upright view of the chest with supine and upright views of the abdomen and pelvis. Findings: Frontal upright view of the chest demonstrates no acute cardiopulmonary process or free air below the diaphragm to suspect pneumoperitoneum. Supine and upright views of the abdomen and pelvis demonstrate nonspecific bowel gas pattern without obstruction or perforation. No organomegaly. Evidence of prior cholecystectomy. Skeletal structures normal for age. Impression: Nonspecific bowel gas pattern. Electronically Signed by Beni Lewis MD 01/31/2020 04:06 P
[2020-01-31 16:15] LABS: ALBUMIN 3.6 GM/DL (3.2-5.2); ALT/SGPT 32 U/L (12-78); BILIRUBIN,DIRECT < 0.1 MG/DL (0.0-0.2); BILIRUBIN,TOTAL 0.3 MG/DL (0.2-1.0); CK-MB VALUE MASS < 1.0 NG/ML (<3.6); CPK CREATINE PHOSPHOKINASE 69 U/L (26-192); LIPASE 29 U/L (73-393); MB/CK RELATIVE INDEX 1.45 (< OR =4); TROPONIN I < 0.02 NG/ML (< 0.10)
[2020-01-31] MEDS ORDERED: ISOVUE-370 76% 100ML VIAL As Ordered ONE (16:37)
--- NOTE | 2020-01-31 17:01 | REP ---
Clinical: Severe chest and epigastric pain radiating to the back. Technique: Axial contrast enhanced images from the thoracic inlet to the upper abdomen using angiographic technique for maximal enhancement of the thoracic aorta. MIP and multiplanar re-formations obtained. 100 ml Isovue 370 intravenous contrast material administered without complication. (CT angiography of the abdomen and pelvis was performed following chest CT). Findings: Thoracic aorta is normal caliber and without evidence for aneurysm or dissection. Heart and pericardium appear relatively normal. Dual lead pacemaker in satisfactory position noted. Pulmonary vasculature is unremarkable and no obvious pulmonary embolus noted. The bilateral lung gomez are relatively clear and without focal consolidation, effusion or pneumothorax. Tracheobronchial tree is patent and normal. No adenopathy. Surrounding musculoskeletal structures are intact. Impression: 1. Normal thoracic aorta without aneurysm or dissection. 2. No acute mediastinal or pleuroparenchymal process appreciated. Electronically Signed by Beni Lewis MD 01/31/2020 04:53 P
--- NOTE | 2020-01-31 17:07 | REP ---
Clinical: Severe chest and epigastric pain radiating to the back. Technique: Axial contrast enhanced images from the lung bases to the pubic symphysis using angiographic technique for maximal enhancement of the abdominal aorta. MIP and multiplanar re-formations obtained. 100 ml Isovue 370 intravenous contrast material administered without complication. Findings: Abdominal aorta is normal caliber and without evidence for aneurysm or dissection. Fatty infiltration to the liver suggested without focal hepatic lesion. Spleen, pancreas, bilateral adrenal glands and kidneys are normal. Evidence of prior gastric bypass surgery and cholecystectomy noted. The enteric system is without obstruction or acute inflammatory process. Prior appendectomy noted. Scattered colonic diverticula noted without acute diverticulitis. Pelvis demonstrates normal bladder and evidence of prior hysterectomy. No ascites. No free air. No adenopathy. Incidental retroaortic left renal vein noted. Surrounding musculoskeletal structures are intact. Impression: 1. Normal abdominal aorta without aneurysm or dissection. 2. No acute abdominopelvic pathology appreciated. 3. Scattered colonic diverticula without acute diverticulitis. 4. Evidence of prior gastric bypass surgery, cholecystectomy, appendectomy and hysterectomy. Electronically Signed by Beni Lewis MD 01/31/2020 04:59 P
[2020-01-31] MEDS ORDERED: FAMOTIDINE INJ 20MG/2ML VIAL (S0028 PER 1) As Ordered ONE (17:15)
[2020-01-31] MEDS ORDERED: diphenhydrAMINE 50MG/ML VIAL (J1200) IV ONE (17:30)
[2020-01-31] MEDS ORDERED: FAMOTIDINE INJ 20MG/2ML VIAL (S0028 PER 1) IVP ONE (17:30)
[2020-01-31] MEDS ORDERED: FAMOTIDINE IV BAG 20 MG in IV 1 EA IV ONE (17:30)
[2020-01-31] MEDS ORDERED: KETOROLAC 30 MG/ML 1ML VIAL IV ONE (17:30)
[2020-01-31 19:10] VITALS: BP 154/78
[2020-01-31] MEDS ORDERED: NORC1TAB8 PO (19:18)
--- NOTE | 2020-01-31 19:41 | ECGEPIP ---
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
[2020-02-06] MEDS ORDERED: LUNE2TAB23 PO (08:37)
[2020-02-06] MEDS ORDERED: CYMB1CAP5 PO (08:37)
[2020-02-06] MEDS ORDERED: PANT40TA3 PO (08:37)
[2020-02-06] MEDS ORDERED: CARD60TA3 PO (08:37)
== END 2020-01-31 19:29 | disposition home or self-care (01) ==
LOC: M ED 14:35
DX: R11.2 Nausea with vomiting, unspecified (principal); R10.13 Epigastric pain; K21.9 Gastro-esophageal reflux disease without esophagitis; E11.9 Type 2 diabetes mellitus without complications; Z95.0 Presence of cardiac pacemaker; Z88.0 Allergy status to penicillin; Z91.041 Radiographic dye allergy status; Z91.013 Allergy to seafood; Z91.030 Bee allergy status; Z88.8 Allergy status to other drugs, medicaments and biological substances
CPT/HCPCS: 71275; 74021; 74177; 80047; 80076; 82550; 82553; 83605; 83690; 84484; 84702; 85025; 85610; 85730; 86850; 86900; 86901; 93005; 93041; 94760; 96361; 96374; 96375; 96376; 99285; J1200; J1885; J2270; J2405; J2930; Q9967

== ENCOUNTER → 2020-02-10 | Outpatient (CLI) | payer MEDICARE, OTHER ==
[~2020-02-10] MED LIST changes: +CARD60TA3 PO; +CYMB1CAP5 PO; +METF10004; +NORC1TAB8 PO
== END ==
LOC: M LABSMTC 10:03
PROVIDERS: ATTEND Anesthesiology
DX: Z01.812 Encounter for preprocedural laboratory examination (principal); Z11.59 Encounter for screening for other viral diseases
CPT/HCPCS: C9803; U0003

== ENCOUNTER 2020-02-13 11:15 | Day surgery (SDC) | payer MEDICARE, OTHER ==
[~2020-02-13] VITALS: Ht 154.9 cm; Wt 103.9 kg
[2020-02-13] MEDS: NS 1,000 ML IV ONE (07:00)
[~2020-02-13 11:15] MED LIST changes: +LIDOCAINE 2% 100MG/5ML SDV (FOR ANES.) As Ordered ONE; +propofoL 200 MG/20 ML VIAL As Ordered ONE
[2020-02-13] MEDS ORDERED: fentaNYL 100 MCG/2 ML INJECTION (J3010) As Ordered ONE (11:55)
[2020-02-13] MEDS ORDERED: ePHEDrine SULFATE 25 MG/5 ML(5MG/ML) SYRINGE As Ordered ONE (12:48)
--- NOTE | 2020-02-13 13:21 | ROOR ---
Patient Name: March Shukri Procedure Date: 02/13/2020 12:33 PM Date of : 1980 Age: 39 Room: [facility] Gender: Female Note Status: Finalized Procedure: Upper GI endoscopy Indications: Epigastric abdominal pain, Hematemesis Providers: Yariel Bernabe MD Referring MD: PARVIN CATALAN MD Requesting Provider: Medicines: Monitored Anesthesia Care Complications: No immediate complications. Procedure: Pre-Anesthesia Assessment: - Prior to the procedure, a History and Physical was performed, and patient medications and allergies were reviewed. The patient is competent. The risks and benefits of the procedure and the sedation options and risks were discussed with the patient. All questions were answered and informed consent was obtained. Patient identification and proposed procedure were verified by the physician, the nurse and the anesthesiologist in the procedure room. Mental Status Examination: alert and oriented. Airway Examination: normal oropharyngeal airway and neck mobility. Respiratory Examination: clear to auscultation. CV Examination: normal. Prophylactic Antibiotics: The patient does not require prophylactic antibiotics. Prior Anticoagulants: The patient has taken no previous anticoagulant or antiplatelet agents. ASA Grade Assessment: II - A patient with mild systemic disease. After reviewing the risks and benefits, the patient was deemed in satisfactory condition to undergo the procedure. The anesthesia plan was to use monitored anesthesia care (MAC). Immediately prior to administration of medications, the patient was re-assessed for adequacy to receive sedatives. The heart rate, respiratory rate, oxygen saturations, blood pressure, adequacy of pulmonary ventilation, and response to care were monitored throughout the procedure. The physical status of the patient was re-assessed after the procedure. The Endoscope was introduced through the mouth, and advanced to the afferent and efferent jejunal loops. The upper GI endoscopy was accomplished without difficulty. The patient tolerated the procedure well. Findings: The examined esophagus was normal. 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 The gastrojejunal anastomosis was characterized by healthy appearing mucosa. This was traversed. The iizaa-tu-ijmrnuo limb was characterized by healthy appearing mucosa. The jejunojejunal anastomosis was characterized by healthy appearing mucosa. The sxttdimn-oq-bdmqkur limb was not examined as it could not be found. The examined jejunum was normal. Impression: - Normal esophagus. - Gasper-en-Y gastrojejunostomy with gastrojejunal anastomosis characterized by healthy appearing mucosa. - Normal examined jejunum. - No specimens collected. Recommendation: - Patient has a contact number available for emergencies. The signs and symptoms of potential delayed complications were discussed with the patient. Return to normal activities tomorrow. Written discharge instructions were provided to the patient. - Post gastric bypass diet (small frequent meals and avoid fatty/ fried foods). - Continue present medications. - Follow the recommendations as per the other procedure note. - Telephone GI clinic if symptomatic. - Return to primary care physician. Yariel Bernabe MD Yariel Bernabe MD 02/13/2020 1:21:37 PM Electronically signed by Yariel Bernabe MD Number of Addenda: 0 Note Initiated On: 02/13/2020 12:33 PM Estimated Blood Loss: Estimated blood loss: none.
--- NOTE | 2020-02-13 13:24 | ROOR ---
Patient Name: March Shukri Procedure Date: 02/13/2020 12:34 PM Date of : 1980 Age: 39 Room: [facility] Gender: Female Note Status: Finalized Procedure: Colonoscopy Indications: Chronic diarrhea, Hematochezia Providers: Yariel Bernabe MD Referring MD: PARVIN CATALAN MD Requesting Provider: Medicines: Monitored Anesthesia Care Complications: No immediate complications. Procedure: Pre-Anesthesia Assessment: - Prior to the procedure, a History and Physical was performed, and patient medications and allergies were reviewed. The patient is competent. The risks and benefits of the procedure and the sedation options and risks were discussed with the patient. All questions were answered and informed consent was obtained. Patient identification and proposed procedure were verified by the physician, the nurse and the anesthesiologist in the procedure room. Mental Status Examination: alert and oriented. Airway Examination: normal oropharyngeal airway and neck mobility. Respiratory Examination: clear to auscultation. CV Examination: normal. Prophylactic Antibiotics: The patient does not require prophylactic antibiotics. Prior Anticoagulants: The patient has taken no previous anticoagulant or antiplatelet agents. ASA Grade Assessment: III - A patient with severe systemic disease. After reviewing the risks and benefits, the patient was deemed in satisfactory condition to undergo the procedure. The anesthesia plan was to use monitored anesthesia care (MAC). Immediately prior to administration of medications, the patient was re-assessed for adequacy to receive sedatives. The heart rate, respiratory rate, oxygen saturations, blood pressure, adequacy of pulmonary ventilation, and response to care were monitored throughout the procedure. The physical status of the patient was re-assessed after the procedure. The Colonoscope was introduced through the anus with the intention of advancing to the cecum. The scope was advanced to the sigmoid colon before the procedure was aborted. Medications were given. The colonoscopy was performed without difficulty. The patient tolerated the procedure well. The quality of the bowel preparation was unsatisfactory. No anatomical landmarks were photographed. Scope insertion time was 1 minute. Scope withdrawal time was 2 minutes. The total duration of the procedure was 3 minutes. Findings: The perianal and digital rectal examinations were normal. A large amount of solid stool was found from rectum to sigmoid colon, precluding visualization. Impression: - Preparation of the colon was unsatisfactory. - Stool from rectum to sigmoid colon. - No specimens collected. Recommendation: - Patient has a contact number available for emergencies. The signs and symptoms of potential delayed complications were discussed with the patient. Return to normal activities tomorrow. Written discharge instructions were provided to the patient. - Resume previous diet. - Continue present medications. - Repeat colonoscopy in 3 months because the bowel preparation was poor. - Telephone GI clinic to schedule appointment 1 - 2 weeks. Please call GI clinic @ [phone] for apppointment date and time. - Return to primary care physician. Yariel Bernabe MD Yariel Bernabe MD 02/13/2020 1:23:51 PM Electronically signed by Yariel Bernabe MD Number of Addenda: 0 Note Initiated On: 02/13/2020 12:34 PM Estimated Blood Loss: Estimated blood loss was minimal.
[2020-02-13 13:25] VITALS: BP 110/58
== END 2020-02-13 13:45 | disposition home or self-care (01) ==
LOC: M OPP 11:15
PROVIDERS: ATTEND Internal Medicine Gastroenterology
DX: K52.9 Noninfective gastroenteritis and colitis, unspecified (principal); K92.1 Melena; Z98.0 Intestinal bypass and anastomosis status; R10.13 Epigastric pain; K92.0 Hematemesis
CPT/HCPCS: 43235; 45378; J3010

== ENCOUNTER → 2020-03-02 | Outpatient (CLI) | payer MEDICARE, OTHER ==
[~2020-03-02] MED LIST changes: -LIDOCAINE 2% 100MG/5ML SDV (FOR ANES.) As Ordered ONE; -propofoL 200 MG/20 ML VIAL As Ordered ONE
== END ==
LOC: M LABSMTC 10:41
PROVIDERS: ATTEND Anesthesiology
DX: Z01.818 Encounter for other preprocedural examination (principal); Z11.59 Encounter for screening for other viral diseases
CPT/HCPCS: C9803; U0003

== ENCOUNTER 2020-03-05 09:31 | Day surgery (SDC) | payer MEDICARE, OTHER ==
[~2020-03-05] VITALS: Ht 152.4 cm; Wt 101.6 kg
[~2020-03-05 09:31] MED LIST changes: +NS 1,000 ML IV ONE
[2020-03-05] MEDS ORDERED: propofoL 200 MG/20 ML VIAL As Ordered ONE (10:19)
[2020-03-05] MEDS ORDERED: LIDOCAINE 2% 100MG/5ML SDV (FOR ANES.) As Ordered ONE (10:19)
--- NOTE | 2020-03-05 12:31 | ROOR ---
Patient Name: March Shukri Procedure Date: 03/05/2020 11:43 AM Date of : 1980 Age: 39 Room: [facility] Gender: Female Note Status: Finalized Procedure: Colonoscopy Indications: Chronic diarrhea Providers: Yariel Bernabe MD Referring MD: PARVIN CATALAN MD Requesting Provider: Medicines: Monitored Anesthesia Care Complications: No immediate complications. Procedure: Pre-Anesthesia Assessment: - Prior to the procedure, a History and Physical was performed, and patient medications and allergies were reviewed. The patient is competent. The risks and benefits of the procedure and the sedation options and risks were discussed with the patient. All questions were answered and informed consent was obtained. Patient identification and proposed procedure were verified by the physician, the nurse and the anesthesiologist in the procedure room. Mental Status Examination: alert and oriented. Airway Examination: normal oropharyngeal airway and neck mobility. Respiratory Examination: clear to auscultation. CV Examination: normal. Prophylactic Antibiotics: The patient does not require prophylactic antibiotics. Prior Anticoagulants: The patient has taken no previous anticoagulant or antiplatelet agents. ASA Grade Assessment: III - A patient with severe systemic disease. After reviewing the risks and benefits, the patient was deemed in satisfactory condition to undergo the procedure. The anesthesia plan was to use monitored anesthesia care (MAC). Immediately prior to administration of medications, the patient was re-assessed for adequacy to receive sedatives. The heart rate, respiratory rate, oxygen saturations, blood pressure, adequacy of pulmonary ventilation, and response to care were monitored throughout the procedure. The physical status of the patient was re-assessed after the procedure. The Colonoscope was introduced through the anus and advanced to the terminal ileum, with identification of the appendiceal orifice and IC valve. The colonoscopy was performed without difficulty. The patient tolerated the procedure well. The quality of the bowel preparation was adequate to identify polyps 6 mm and larger in size and fair. The terminal ileum, ileocecal valve, appendiceal orifice, and rectum were photographed. Scope insertion time was 3 minutes. Scope withdrawal time was 9 minutes. The total duration of the procedure was 12 minutes. Findings: The perianal and digital rectal examinations were normal. The terminal ileum appeared normal. Three sessile polyps were found in the sigmoid colon and transverse colon. The polyps were 4 to 5 mm in size. These polyps were removed with a jumbo cold forceps. Resection and retrieval were complete. Verification of patient identification for the specimen was done by the physician and nurse using the patient's name, date and medical record number. Normal mucosa was found in the entire colon. Biopsies for histology were taken with a cold forceps from the rectosigmoid colon for evaluation of microscopic colitis. Non-bleeding external and internal hemorrhoids were found during retroflexion. The hemorrhoids were medium-sized. Impression: - Preparation of the colon was fair. - The examined portion of the ileum was normal. - Three 4 to 5 mm polyps in the sigmoid colon and in the transverse colon, removed with a jumbo cold forceps. Resected and retrieved. - Normal mucosa in the entire examined colon. Biopsied. - Non-bleeding external and internal hemorrhoids. Recommendation: - Patient has a contact number available for emergencies. The signs and symptoms of potential delayed complications were discussed with the patient. Return to normal activities tomorrow. Written discharge instructions were provided to the patient. - High fiber diet. - Continue present medications. - Await pathology results. - Repeat colonoscopy in 3 - 5 years for surveillance based on pathology results. - Telephone GI clinic for pathology results in 2 weeks. - Return to primary care physician. Yariel Bernabe MD Yariel Bernabe MD 03/05/2020 12:30:30 PM Electronically signed by Yariel Bernabe MD Number of Addenda: 0 Note Initiated On: 03/05/2020 11:43 AM Estimated Blood Loss: Estimated blood loss was minimal.
== END 2020-03-05 12:56 | disposition home or self-care (01) ==
LOC: M OPP 09:31
PROVIDERS: ATTEND Internal Medicine Gastroenterology
DX: K63.5 Polyp of colon (principal); K64.8 Other hemorrhoids; K62.5 Hemorrhage of anus and rectum; K52.9 Noninfective gastroenteritis and colitis, unspecified; Z79.82 Long term (current) use of aspirin; Z79.899 Other long term (current) drug therapy; Z91.030 Bee allergy status; Z91.013 Allergy to seafood; Z91.041 Radiographic dye allergy status; Z91.048 Other nonmedicinal substance allergy status

== ENCOUNTER 2020-03-28 02:43 | Emergency (ER) | payer MEDICARE, OTHER ==
[~2020-03-28] VITALS: Ht 154.9 cm; Wt 100.2 kg
[~2020-03-28 02:43] MED LIST changes: -ASPI81TA85 PO; +ASPI81TA86 PO; -CYTO100T PO; +CYTO1TAB2 PO; -NS 1,000 ML IV ONE; +PANT40TA29 PO; -PANT40TA3 PO
--- NOTE | 2020-03-28 06:23 | REP ---
Clinical: Trauma. Technique: AP, lateral, bilateral oblique views of the right ankle. Findings: Generalized age-related changes are appreciated. No acute fracture or dislocation. Ankle mortise intact. No subcutaneous emphysema or foreign body. Impression: No acute fracture or dislocation. Electronically Signed by Beni Lewis MD 03/28/2020 06:14 A
--- NOTE | 2020-03-28 06:24 | REP ---
Clinical: Trauma. Technique: AP, lateral, bilateral oblique views right foot . Findings: The osseous structures and joint spaces are intact and normal. There is no evidence for acute fracture or dislocation. Surrounding soft tissues are unremarkable. No subcutaneous emphysema or radiodense foreign body. Impression: Age-appropriate right foot series. No acute fracture or dislocation. Electronically Signed by Beni Lewis MD 03/28/2020 06:15 A
[2020-03-28 06:48] VITALS: BP 148/76
[2020-03-29] MEDS ORDERED: BIOF4GEL4 TOP (20:50)
[2020-04-20] MEDS ORDERED: SUCR1TA PO (04:29)
[2020-04-20] MEDS ORDERED: NORC1TAB7 PO (04:34)
== END 2020-03-28 06:49 | disposition home or self-care (01) ==
LOC: M ED 02:43
DX: S99.911A Unspecified injury of right ankle, initial encounter (principal); Y99.0 Civilian activity done for income or pay; Y92.9 Unspecified place or not applicable; Y93.9 Activity, unspecified; W01.0XXA Fall on same level from slipping, tripping and stumbling without subsequent striking against object, initial encounter; F17.200 Nicotine dependence, unspecified, uncomplicated; Z79.82 Long term (current) use of aspirin; Z79.84 Long term (current) use of oral hypoglycemic drugs; Z79.899 Other long term (current) drug therapy; Z91.013 Allergy to seafood; Z91.030 Bee allergy status; Z91.040 Latex allergy status; Z91.041 Radiographic dye allergy status; Z91.048 Other nonmedicinal substance allergy status

== ENCOUNTER 2020-03-29 17:58 | Emergency (ER) | payer OTHER, MEDICARE ==
[~2020-03-29] VITALS: Ht 154.9 cm; Wt 101.0 kg
[~2020-03-29 17:58] MED LIST changes: +ASPI81TA85 PO; -ASPI81TA86 PO; +CYTO100T PO; -CYTO1TAB2 PO; -PANT40TA29 PO; +PANT40TA3 PO
[2020-03-29] MEDS ORDERED: ANALGESIC BALM CRM 120 GM TOP STA (18:32)
[2020-03-29 18:57] LABS: BASO # 0.1 10^3/uL (0.0-0.2); BASO % 0.6 % (0.0-1.0); EOS # 0.1 10^3/uL (0.0-0.5); EOS % 1.5 % (0.0-3.0); HEMATOCRIT 37.3 % (36.0-47.0); LYMPH # 2.3 10^3/uL (1.5-5.0); LYMPH % 27.2 % (24.0-44.0); MEAN CORPUSCULAR HEMOGLOBIN 26.2 pg (27.0-33.0); MEAN CORPUSCULAR HGB CONC 32.2 g/dl (32.0-36.5); MEAN CORPUSCULAR VOLUME 81.4 fl (80.0-96.0); MONO # 0.5 10^3/uL (0.0-0.8); MONO % 5.3 % (0.0-5.0); NEUTROPHILS # 5.6 10^3/uL (1.5-8.5); PLATELET COUNT, AUTOMATED 292 10^3/uL (150-450); RED BLOOD COUNT 4.58 10^6/uL (4.00-5.40); WHITE BLOOD COUNT 8.6 10^3/uL (4.0-10.0)
[2020-03-29] MEDS ORDERED: BIOF4GEL4 TOP (20:50)
[2020-03-29 20:56] VITALS: BP 125/93
--- NOTE | 2020-03-30 08:04 | REP ---
Clinical: Pain and swelling . Technique: [place] scale and color Doppler evaluation right lower extremity using linear high frequency transducer. Findings: Ultrasound examination of the right lower extremity deep venous structures from the common femoral vein to the popliteal vein demonstrates normal compressibility flow and wave patterns in response to respiration and augmentation. There is no evidence for deep venous thrombosis. Impression: No evidence for deep venous thrombosis. Electronically Signed by Beni Lewis MD 03/30/2020 07:55 A
--- NOTE | 2020-03-30 16:19 | ECGEPIP ---
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
--- NOTE | 2020-03-30 16:19 | ECGEPIP ---
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
== END 2020-03-29 21:04 | disposition home or self-care (01) ==
LOC: M ED 17:58
DX: R22.41 Localized swelling, mass and lump, right lower limb (principal); I45.19 Other right bundle-branch block; I11.9 Hypertensive heart disease without heart failure; E11.9 Type 2 diabetes mellitus without complications; F17.200 Nicotine dependence, unspecified, uncomplicated; Z79.82 Long term (current) use of aspirin; Z79.899 Other long term (current) drug therapy; Z88.8 Allergy status to other drugs, medicaments and biological substances; Z91.013 Allergy to seafood; Z91.041 Radiographic dye allergy status; Z91.030 Bee allergy status; Z95.0 Presence of cardiac pacemaker

== ENCOUNTER → 2020-06-10 | Outpatient (CLI) | payer MEDICARE, OTHER ==
[~2020-06-10] MED LIST changes: -ASPI81TA85 PO; +ASPI81TA86 PO; +BIOF4GEL4 TOP; -CYTO100T PO; +CYTO1TAB2 PO; +NORC1TAB7 PO; +PANT40TA29 PO; -PANT40TA3 PO
--- NOTE | 2020-07-01 06:57 | REP ---
RIGHT BREAST ULTRASOUND TECHNIQUE: Real-time sonographic evaluation of the right breast is performed in the region of 3 o'clock at the site of a prior biopsy. COMPARISON: Made with prior studies, the biopsy was performed 11/26/2019. FINDINGS: In the 3 o'clock region the previously noted biopsy marking clip is noted surrounded by a tiny amount of fluid. No discrete cystic or solid mass is seen. IMPRESSION: BI-RADS Category 2 benign ultrasound findings. Previously noted biopsy clip is noted at the 3 o'clock position of the right breast, at the site of the prior biopsy performed 11/26/2019. The biopsy clip is surrounded by a tiny amount of fluid. There is no cystic or solid nodule. MTDD
== END ==
LOC: M WHC 09:10
PROVIDERS: ATTEND Surgery
DX: N63.15 Unspecified lump in the right breast, overlapping quadrants (principal); Z86.018 Personal history of other benign neoplasm; Z97.8 Presence of other specified devices

== ENCOUNTER 2020-07-05 16:35 | Emergency (ER) | payer MEDICARE, OTHER ==
[~2020-07-05] VITALS: Ht 154.9 cm; Wt 101.8 kg
[2020-07-05 16:36] VITALS: BP 139/96
== END 2020-07-05 19:29 | disposition left against medical advice (07) ==
LOC: M ED 16:35
DX: Z53.21 Procedure and treatment not carried out due to patient leaving prior to being seen by health care provider (principal)

== ENCOUNTER 2020-09-26 16:35 | Emergency (ER) | payer MEDICARE, OTHER ==
[~2020-09-26] VITALS: Ht 154.9 cm; Wt 100.0 kg
[2020-09-26] MEDS ORDERED: AUGMENTIN 875 MG TAB PO ONE (18:45)
[2020-09-26] MEDS ORDERED: AUGM875T28 PO (18:47)
[2020-09-26 19:07] VITALS: BP 125/75
== END 2020-09-26 19:10 | disposition home or self-care (01) ==
LOC: M ED 16:35
DX: J01.90 Acute sinusitis, unspecified (principal); I50.9 Heart failure, unspecified; I25.2 Old myocardial infarction; E11.9 Type 2 diabetes mellitus without complications; G43.909 Migraine, unspecified, not intractable, without status migrainosus; K21.9 Gastro-esophageal reflux disease without esophagitis; Z86.73 Personal history of transient ischemic attack (TIA), and cerebral infarction without residual deficits; J45.909 Unspecified asthma, uncomplicated; Z95.0 Presence of cardiac pacemaker; Z88.8 Allergy status to other drugs, medicaments and biological substances; Z91.041 Radiographic dye allergy status; Z91.013 Allergy to seafood; Z91.030 Bee allergy status; Z79.02 Long term (current) use of antithrombotics/antiplatelets; Z79.84 Long term (current) use of oral hypoglycemic drugs; Z79.899 Other long term (current) drug therapy

== ENCOUNTER 2021-03-16 21:19 | Emergency (ER) | payer MEDICARE, OTHER ==
[~2021-03-16] VITALS: Ht 154.9 cm; Wt 92.1 kg
[~2021-03-16 21:19] MED LIST changes: -AMIT25TA PO; +AMIT25TA17 PO; +AUGM875T28 PO; -BANO25CA PO; +DIPH-319 PO
[2021-03-16] MEDS ORDERED: LANTINJ4 SC (21:32)
[2021-03-16] MEDS ORDERED: HUMA100I5 SC (21:32)
[2021-03-16] MEDS ORDERED: TRAZ-257 PO (21:32)
--- NOTE | 2021-03-16 22:45 | REPVR ---
PROCEDURE INFORMATION: Exam: XR Left Shoulder Exam date and time: 03/16/2021 9:58 PM Age: 40 years old Clinical indication: Other: Injury TECHNIQUE: Imaging protocol: XR Left shoulder. Views: 2 or more views. COMPARISON: CR Elbow, complete 10/27/2016 10:24 AM FINDINGS: Bones/joints: Normal. Soft tissues: Normal. IMPRESSION: No acute findings. Electronically signed by: Tod Cruz On 03/16/2021 22:45:07 PM
[2021-03-16 23:05] VITALS: BP 130/88
== END 2021-03-16 23:06 | disposition home or self-care (01) ==
LOC: M ED 21:19
DX: S46.912A Strain of unspecified muscle, fascia and tendon at shoulder and upper arm level, left arm, initial encounter (principal); W18.2XXA Fall in (into) shower or empty bathtub, initial encounter; Y92.002 Bathroom of unspecified non-institutional (private) residence as the place of occurrence of the external cause; Y93.9 Activity, unspecified; Y99.9 Unspecified external cause status; I50.9 Heart failure, unspecified; E11.9 Type 2 diabetes mellitus without complications; K21.9 Gastro-esophageal reflux disease without esophagitis; F43.10 Post-traumatic stress disorder, unspecified; F31.9 Bipolar disorder, unspecified; F17.200 Nicotine dependence, unspecified, uncomplicated; Z88.8 Allergy status to other drugs, medicaments and biological substances; Z91.041 Radiographic dye allergy status; Z91.09 Other allergy status, other than to drugs and biological substances; Z91.013 Allergy to seafood; Z91.030 Bee allergy status; Z79.899 Other long term (current) drug therapy

== ENCOUNTER 2021-10-18 17:30 | Emergency (ER) | payer MEDICARE, OTHER ==
[~2021-10-18] VITALS: Ht 157.5 cm; Wt 92.5 kg
[2021-10-18 17:30] VITALS: BP 127/87
[~2021-10-18 17:30] MED LIST changes: -CYMB60CA3 PO; +CYMB60CA4 PO; -FENO48TA7 PO; +FENO48TA8 PO; +HUMA100I5 SC; +LANTINJ4 SC; -LEVO500T3 PO; +LEVO500T4 PO; -MAGN400T3 PO; +MAGN400T33 PO; -OLAN15TA PO; +OLAN15TA13 PO; +OMEP40CA4 PO; -OMEP40CA97 PO; +TRAZ-257 PO
== END 2021-10-18 20:09 | disposition left against medical advice (07) ==
LOC: M ED 17:30
DX: Z53.21 Procedure and treatment not carried out due to patient leaving prior to being seen by health care provider (principal)

== ENCOUNTER 2022-06-14 19:28 | Emergency (ER) | payer MEDICARE, OTHER ==
[~2022-06-14] VITALS: Ht 154.9 cm; Wt 88.6 kg
[~2022-06-14 19:28] MED LIST changes: +LEVO1TAB39 PO; -LEVO500T4 PO; -ZONI100C17 PO; +ZONI100C67 PO
[2022-06-14] MEDS ORDERED: DULA3PEN SUBQ (19:44)
[2022-06-14] MEDS ORDERED: OLAN1TAB20 PO (19:44)
[2022-06-14] MEDS ORDERED: JARD1TAB PO (19:44)
[2022-06-14 20:27] LABS: BASO # 0.1 10^3/uL (0.0-0.2); BASO % 0.4 % (0.0-1.0); EOS # 0.1 10^3/uL (0.0-0.5); EOS % 1.1 % (0.0-3.0); HEMATOCRIT 37.9 % (36.0-47.0); HEMOGLOBIN 12.1 g/dl (12.0-15.5); LYMPH # 2.9 10^3/uL (1.5-5.0); LYMPH % 25.9 % (24.0-44.0); MEAN CORPUSCULAR HEMOGLOBIN 24.6 pg (27.0-33.0); MEAN CORPUSCULAR HGB CONC 31.9 g/dl (32.0-36.5); MEAN CORPUSCULAR VOLUME 77.2 fl (80.0-96.0); MONO # 0.5 10^3/uL (0.0-0.8); MONO % 4.5 % (2.0-8.0); NEUTROPHILS # 7.5 10^3/uL (1.5-8.5); NEUTROPHILS % 67.3 % (36.0-66.0); PLATELET COUNT, AUTOMATED 324 10^3/uL (150-450); RED BLOOD COUNT 4.91 10^6/uL (4.00-5.40); WHITE BLOOD COUNT 11.1 10^3/uL (4.0-10.0)
[2022-06-14 21:07] LABS: BLOOD UREA NITROGEN 13 MG/DL (7-18); CALCIUM LEVEL 8.9 MG/DL (8.5-10.1); CARBON DIOXIDE LEVEL 21 MEQ/L (21-32); CHLORIDE LEVEL 111 MEQ/L (98-107); CREATININE FOR GFR 0.81 MG/DL (0.55-1.30); GLOMERULAR FILTRATION RATE > 60.0 (>58); GLUCOSE, FASTING 161 MG/DL (70-100); POTASSIUM SERUM 4.2 MEQ/L (3.5-5.1); SODIUM LEVEL 139 MEQ/L (136-145)
[2022-06-14 21:09] LABS: CK-MB VALUE MASS < 1.0 NG/ML (<3.6); CPK CREATINE PHOSPHOKINASE 56 U/L (26-192); MB/CK RELATIVE INDEX 1.79 (< OR =4)
[2022-06-14 21:58] LABS: CK-MB VALUE MASS < 1.0 NG/ML (<3.6); CPK CREATINE PHOSPHOKINASE 58 U/L (26-192); MB/CK RELATIVE INDEX 1.72 (< OR =4)
[2022-06-14 23:15] VITALS: BP 124/66
== END 2022-06-14 23:34 | disposition home or self-care (01) ==
LOC: M ED 19:28
DX: R07.9 Chest pain, unspecified (principal); F20.9 Schizophrenia, unspecified; F33.1 Major depressive disorder, recurrent, moderate; K21.9 Gastro-esophageal reflux disease without esophagitis; J45.909 Unspecified asthma, uncomplicated; E11.9 Type 2 diabetes mellitus without complications; F17.200 Nicotine dependence, unspecified, uncomplicated; I25.2 Old myocardial infarction; Z91.041 Radiographic dye allergy status; Z91.013 Allergy to seafood; Z91.030 Bee allergy status; Z86.79 Personal history of other diseases of the circulatory system; Z86.73 Personal history of transient ischemic attack (TIA), and cerebral infarction without residual deficits; Z79.82 Long term (current) use of aspirin; Z79.4 Long term (current) use of insulin; Z79.899 Other long term (current) drug therapy

== ENCOUNTER → 2022-12-04 | Outpatient (CLI) | payer MEDICARE, OTHER ==
[~2022-12-04] MED LIST changes: +DULA3PEN SUBQ; +JARD1TAB PO; -METF10004; +METF10004 PO; +OLAN1TAB20 PO; +TIRZ5PEN SQ
== END ==
LOC: M LABSMTC 11:06
PROVIDERS: ATTEND Anesthesiology
DX: Z01.812 Encounter for preprocedural laboratory examination (principal)

== ENCOUNTER 2022-12-08 07:30 | Day surgery (SDC) | payer MEDICARE, OTHER ==
[~2022-12-08] VITALS: Ht 154.9 cm; Wt 85.7 kg
[2022-12-08] MEDS ORDERED: LR 1,000 ML IV SCH ×2 (08:35→10:45)
[2022-12-08] MEDS ORDERED: ONDANSETRON 4MG 2ML VIAL As Ordered ONE (08:49)
[2022-12-08] MEDS ORDERED: propofoL 200 MG/20 ML VIAL As Ordered ONE (08:49)
[2022-12-08] MEDS ORDERED: KETOROLAC 60MG 2ML VIAL As Ordered ONE (08:49)
[2022-12-08] MEDS ORDERED: ROCURONIUM BROMIDE 50MG/5ML VIAL As Ordered ONE (09:55)
[2022-12-08] MEDS ORDERED: SUGAMMADEX SODIUM 500 MG/5 ML VIAL (BRIDION) As Ordered ONE (09:55)
[2022-12-08] MEDS ORDERED: ACETAMINOPHEN 1000MG 100ML IV BAG As Ordered ONE (09:55)
[2022-12-08] MEDS ORDERED: MIDAZOLAM INJ 2MG/2ML VIAL As Ordered ONE (09:56)
[2022-12-08] MEDS ORDERED: fentaNYL 100 MCG/2 ML INJECTION As Ordered ONE (09:56)
[2022-12-08] MEDS ORDERED: LIDOCAINE 2% 100MG/5ML SDV (FOR ANES.) As Ordered ONE (10:01)
[2022-12-08] MEDS ORDERED: LIDOCAINE W/EPINEPHRINE 1% 20ML VIAL As Ordered ONE (10:09)
[2022-12-08] MEDS ORDERED: fentaNYL 100 MCG/2 ML INJECTION IV PRN (10:45)
[2022-12-08] MEDS ORDERED: oxyCODONE 5MG TAB PO PRN (10:45)
[2022-12-08] MEDS ORDERED: ONDANSETRON 4MG 2ML VIAL IV PRN (10:45)
[2022-12-08] MEDS ORDERED: MORPHINE 2 MG/ML 1ML VIAL IV PRN (10:45)
[2022-12-08 13:28] VITALS: BP 116/65
== END 2022-12-08 13:34 | disposition home or self-care (01) ==
LOC: M SDC 07:30
PROVIDERS: ATTEND Dentist Oral and Maxillofacial Surgery
DX: K02.9 Dental caries, unspecified (principal); I25.10 Atherosclerotic heart disease of native coronary artery without angina pectoris; I25.2 Old myocardial infarction; Z95.0 Presence of cardiac pacemaker; K44.9 Diaphragmatic hernia without obstruction or gangrene; F17.210 Nicotine dependence, cigarettes, uncomplicated; E11.9 Type 2 diabetes mellitus without complications; K21.9 Gastro-esophageal reflux disease without esophagitis; Z86.73 Personal history of transient ischemic attack (TIA), and cerebral infarction without residual deficits; Z91.041 Radiographic dye allergy status; Z91.030 Bee allergy status; Z91.013 Allergy to seafood; Z79.84 Long term (current) use of oral hypoglycemic drugs; Z79.899 Other long term (current) drug therapy; F41.9 Anxiety disorder, unspecified; F32.A Depression, unspecified; F90.9 Attention-deficit hyperactivity disorder, unspecified type; G43.909 Migraine, unspecified, not intractable, without status migrainosus; G40.909 Epilepsy, unspecified, not intractable, without status epilepticus; J45.909 Unspecified asthma, uncomplicated
CPT/HCPCS: 41899; 88300; J0131; J1100; J1885; J2250; J2405; J3010

== ENCOUNTER → 2023-01-19 | Outpatient (CLI) | payer MEDICARE, OTHER ==
[~2023-01-19] MED LIST changes: +ISOVUE-300 61% 100ML VIAL As Ordered ONE; +LIDOCAINE 1% MDV 20ML VIAL As Ordered ONE; +PROHANCE 279.3MG/ML 15ML VIAL As Ordered ONE; +PROHANCE 279.3MG/ML 5ML VIAL As Ordered ONE
== END ==
LOC: M RAD 08:58
PROVIDERS: ATTEND Physician Assistant
DX: M94.262 Chondromalacia, left knee (principal); M25.562 Pain in left knee
CPT/HCPCS: 27369; 73580; 73701; A9576

== ENCOUNTER 2023-03-02 13:57 | Emergency (ER) | payer MEDICARE, OTHER ==
[~2023-03-02] VITALS: Ht 154.9 cm; Wt 86.4 kg
[~2023-03-02 13:57] MED LIST changes: -ISOVUE-300 61% 100ML VIAL As Ordered ONE; -LIDOCAINE 1% MDV 20ML VIAL As Ordered ONE; -PROHANCE 279.3MG/ML 15ML VIAL As Ordered ONE; -PROHANCE 279.3MG/ML 5ML VIAL As Ordered ONE
[2023-03-02 15:16] LABS: BASO # 0.1 10^3/uL (0.0-0.2); BASO % 0.6 % (0.0-1.0); EOS # 0.1 10^3/uL (0.0-0.5); HEMOGLOBIN 12.3 g/dl (12.0-15.5); LYMPH # 2.2 10^3/uL (1.5-5.0); LYMPH % 23.6 % (24.0-44.0); MEAN CORPUSCULAR HEMOGLOBIN 24.2 pg (27.0-33.0); MEAN CORPUSCULAR HGB CONC 31.5 g/dl (32.0-36.5); MEAN CORPUSCULAR VOLUME 76.8 fl (80.0-96.0); MONO # 0.5 10^3/uL (0.0-0.8); MONO % 5.1 % (2.0-8.0); NEUTROPHILS # 6.5 10^3/uL (1.5-8.5); NEUTROPHILS % 69.1 % (36.0-66.0); PLATELET COUNT, AUTOMATED 352 10^3/uL (150-450); RED BLOOD COUNT 5.08 10^6/uL (4.00-5.40); WHITE BLOOD COUNT 9.4 10^3/uL (4.0-10.0)
[2023-03-02 15:25] LABS: INR 0.95; PROTHROMBIN TIME 12.9 SECONDS (12.5-14.5)
[2023-03-02 15:50] LABS: CK-MB VALUE MASS < 1.0 NG/ML (<3.6); LIPASE 20 U/L (12-53)
[2023-03-02 15:52] LABS: ALBUMIN 4.1 G/DL (3.2-5.2); ALKALINE PHOSPHATASE 100 U/L (46-116); ALT/SGPT 18 U/L (7.0-40); AST/SGOT 10 U/L (<34); BILIRUBIN,DIRECT < 0.1 MG/DL (<0.4); BILIRUBIN,TOTAL 0.3 MG/DL (0.3-1.2); BLOOD UREA NITROGEN 12 MG/DL (9-23); CALCIUM LEVEL 8.4 MG/DL (8.5-10.1); CARBON DIOXIDE LEVEL 21 MMOL/L (20-31); CHLORIDE LEVEL 105 MMOL/L (98-107); CPK CREATINE PHOSPHOKINASE 73 U/L (34-145); CREATININE FOR GFR 0.74 MG/DL (0.55-1.30); GLOMERULAR FILTRATION RATE > 60.0 (>58); GLUCOSE, FASTING 111 MG/DL (60-100); MB/CK RELATIVE INDEX 1.36 (< OR =4); POTASSIUM SERUM 3.8 MMOL/L (3.5-5.1); SODIUM LEVEL 138 MMOL/L (136-145)
[2023-03-02 16:20] VITALS: BP 114/56
[2023-03-02 16:32] LABS: CK-MB VALUE MASS < 1.0 NG/ML (<3.6)
[2023-03-02 16:33] LABS: CPK CREATINE PHOSPHOKINASE 65 U/L (34-145); MB/CK RELATIVE INDEX 1.53 (< OR =4)
[2023-03-02 16:39] LABS: RSV AMPLIFICATION NEGATIVE (NEGATIVE)
[2023-03-02] MEDS ORDERED: OMEP40CA4 PO ×2 (16:41→16:56)
[2023-03-02] MEDS ORDERED: SUCR1TA PO ×2 (16:41→16:56)
== END 2023-03-02 17:07 | disposition home or self-care (01) ==
LOC: M ED 13:57
DX: R07.9 Chest pain, unspecified (principal); E11.9 Type 2 diabetes mellitus without complications; K21.9 Gastro-esophageal reflux disease without esophagitis; F17.200 Nicotine dependence, unspecified, uncomplicated; Z86.79 Personal history of other diseases of the circulatory system; Z95.0 Presence of cardiac pacemaker; Z91.013 Allergy to seafood; Z91.030 Bee allergy status; Z91.048 Other nonmedicinal substance allergy status; Z88.8 Allergy status to other drugs, medicaments and biological substances; Z79.83 Long term (current) use of bisphosphonates; Z79.4 Long term (current) use of insulin

== ENCOUNTER 2023-03-30 23:21 | Emergency (ER) | payer MEDICARE, OTHER ==
[2023-03-30] MEDS ORDERED: NITROGLYCERIN 0.4MG SUBL TABLET SL STA (23:56)
[2023-03-31] MEDS ORDERED: MORPHINE 4 MG/ML 1ML VIAL IV ONE
[2023-03-31 00:12] LABS: BASO # 0.1 10^3/uL (0.0-0.2); BASO % 0.7 % (0.0-1.0); EOS # 0.2 10^3/uL (0.0-0.5); EOS % 1.5 % (0.0-3.0); HEMATOCRIT 36.6 % (36.0-47.0); HEMOGLOBIN 11.5 g/dl (12.0-15.5); LYMPH # 2.8 10^3/uL (1.5-5.0); LYMPH % 28.9 % (24.0-44.0); MEAN CORPUSCULAR HGB CONC 31.4 g/dl (32.0-36.5); MEAN CORPUSCULAR VOLUME 76.4 fl (80.0-96.0); MONO # 0.6 10^3/uL (0.0-0.8); MONO % 5.6 % (2.0-8.0); NEUTROPHILS # 6.1 10^3/uL (1.5-8.5); NEUTROPHILS % 62.7 % (36.0-66.0); PLATELET COUNT, AUTOMATED 303 10^3/uL (150-450); RED BLOOD COUNT 4.79 10^6/uL (4.00-5.40); WHITE BLOOD COUNT 9.8 10^3/uL (4.0-10.0)
[2023-03-31 00:32] LABS: CK-MB VALUE MASS < 1.0 NG/ML (<3.6)
[2023-03-31 00:34] LABS: BLOOD UREA NITROGEN 12 MG/DL (9-23); CALCIUM LEVEL 8.1 MG/DL (8.5-10.1); CARBON DIOXIDE LEVEL 23 MMOL/L (20-31); CHLORIDE LEVEL 109 MMOL/L (98-107); CPK CREATINE PHOSPHOKINASE 50 U/L (34-145); CREATININE FOR GFR 0.67 MG/DL (0.55-1.30); GLOMERULAR FILTRATION RATE > 60.0 (>58); GLUCOSE, FASTING 120 MG/DL (60-100); POTASSIUM SERUM 3.9 MMOL/L (3.5-5.1); SODIUM LEVEL 141 MMOL/L (136-145)
[2023-03-31 00:36] LABS: THYROID STIMULATING HORMONE 4.807 uIU/ML (0.55-4.78)
[2023-03-31 01:15] VITALS: BP 115/79
[2023-03-31] MEDS ORDERED: HYOSCYAMINE SULFATE 0.125 MG SUBL TABLET SL ONE (01:35)
[2023-03-31 02:01] LABS: CK-MB VALUE MASS < 1.0 NG/ML (<3.6)
[2023-03-31 02:02] LABS: CPK CREATINE PHOSPHOKINASE 48 U/L (34-145); MB/CK RELATIVE INDEX 2.08 (< OR =4)
[2023-03-31] MEDS ORDERED: ANEXSIA, NORCO 7.5MG/325MG TABLET(HYDROCODONE/APAP) PO ONE (02:10)
[2023-03-31 02:23] LABS: LIPASE 19 U/L (12-53)
[2023-03-31 02:25] LABS: ALBUMIN 3.8 G/DL (3.2-5.2); ALKALINE PHOSPHATASE 99 U/L (46-116); ALT/SGPT 16 U/L (7.0-40); AST/SGOT < 8 U/L (<34); BILIRUBIN,DIRECT < 0.1 MG/DL (<0.4); BILIRUBIN,TOTAL 0.2 MG/DL (0.3-1.2); TOTAL PROTEIN 6.7 G/DL (5.7-8.2)
[2023-03-31 02:53] LABS: HCG, SERUM QUALITATIVE NEGATIVE (NEGATIVE)
[2023-03-31] MEDS ORDERED: HYDR-3713 PO (03:03)
[2023-03-31 03:20] VITALS: O2SAT 93
== END 2023-03-31 04:01 | disposition home or self-care (01) ==
LOC: EDBD 23:21 → M ED 23:21
DX: R07.9 Chest pain, unspecified (principal); I44.4 Left anterior fascicular block; E11.9 Type 2 diabetes mellitus without complications; K21.9 Gastro-esophageal reflux disease without esophagitis; Z86.79 Personal history of other diseases of the circulatory system; Z79.84 Long term (current) use of oral hypoglycemic drugs; Z88.8 Allergy status to other drugs, medicaments and biological substances; Z91.013 Allergy to seafood; Z91.030 Bee allergy status; Z91.048 Other nonmedicinal substance allergy status

== ENCOUNTER 2023-05-09 17:03 | Emergency (ER) | payer BC ==
[~2023-05-09] VITALS: Ht 152.4 cm; Wt 86.1 kg
[~2023-05-09 17:03] MED LIST changes: -AMIT25TA17 PO; +AMIT25TA19 PO; +DICY-61 PO; -DICY10CA13 PO
[2023-05-09 17:06] VITALS: TEMP 98.5
[2023-05-09] MEDS ORDERED: TRAZ-189 PO (18:12)
[2023-05-09 18:32] LABS: BASO # 0.1 10^3/uL (0.0-0.2); BASO % 0.6 % (0.0-1.0); EOS # 0.1 10^3/uL (0.0-0.5); EOS % 0.8 % (0.0-3.0); HEMOGLOBIN 11.8 g/dl (12.0-15.5); LYMPH # 2.7 10^3/uL (1.5-5.0); LYMPH % 31.6 % (24.0-44.0); MEAN CORPUSCULAR HEMOGLOBIN 23.7 pg (27.0-33.0); MEAN CORPUSCULAR HGB CONC 31.1 g/dl (32.0-36.5); MEAN CORPUSCULAR VOLUME 76.5 fl (80.0-96.0); MONO # 0.4 10^3/uL (0.0-0.8); NEUTROPHILS # 5.2 10^3/uL (1.5-8.5); NEUTROPHILS % 61.3 % (36.0-66.0); PLATELET COUNT, AUTOMATED 285 10^3/uL (150-450); RED BLOOD COUNT 4.97 10^6/uL (4.00-5.40); WHITE BLOOD COUNT 8.5 10^3/uL (4.0-10.0)
[2023-05-09 19:05] LABS: BLOOD UREA NITROGEN 13 MG/DL (9-23); CALCIUM LEVEL 8.9 MG/DL (8.5-10.1); CARBON DIOXIDE LEVEL 26 MMOL/L (20-31); CHLORIDE LEVEL 105 MMOL/L (98-107); CK-MB VALUE MASS < 1.0 NG/ML (<3.6); CPK CREATINE PHOSPHOKINASE 50 U/L (34-145); CREATININE FOR GFR 0.77 MG/DL (0.55-1.30); GLOMERULAR FILTRATION RATE > 60.0 (>58); GLUCOSE, FASTING 98 MG/DL (60-100); POTASSIUM SERUM 4.1 MMOL/L (3.5-5.1); SODIUM LEVEL 140 MMOL/L (136-145)
[2023-05-09 20:45] VITALS: BP 94/55
[2023-05-09 20:48] VITALS: O2SAT 96
== END 2023-05-09 20:56 | disposition home or self-care (01) ==
LOC: M ED 17:03
DX: R07.9 Chest pain, unspecified (principal); E11.9 Type 2 diabetes mellitus without complications; E78.5 Hyperlipidemia, unspecified; J45.909 Unspecified asthma, uncomplicated; I10 Essential (primary) hypertension; F90.9 Attention-deficit hyperactivity disorder, unspecified type; Z86.79 Personal history of other diseases of the circulatory system; Z95.0 Presence of cardiac pacemaker; Z79.4 Long term (current) use of insulin; Z79.899 Other long term (current) drug therapy

== ENCOUNTER 2023-09-11 17:15 | Emergency (ER) | payer BC ==
[~2023-09-11] VITALS: Ht 152.4 cm; Wt 87.7 kg
[~2023-09-11 17:15] MED LIST changes: -DIPH-319 PO; +DIPH-429 PO; -LUNE2TAB23 PO; +LUNE2TAB28 PO; -MISO100T22 PO; +MISO100T32 PO; -MISO200T56 PO; +MISO200T83 PO; +TRAZ-189 PO
[2023-09-11 18:14] LABS: BASO # 0.1 10^3/uL (0.0-0.2); BASO % 0.5 % (0.0-1.0); EOS # 0.1 10^3/uL (0.0-0.5); EOS % 0.7 % (0.0-3.0); HEMATOCRIT 39.4 % (36.0-47.0); HEMOGLOBIN 12.2 g/dl (12.0-15.5); LYMPH # 2.7 10^3/uL (1.5-5.0); LYMPH % 24.6 % (24.0-44.0); MEAN CORPUSCULAR HEMOGLOBIN 23.6 pg (27.0-33.0); MEAN CORPUSCULAR VOLUME 76.2 fl (80.0-96.0); MONO # 0.5 10^3/uL (0.0-0.8); MONO % 4.7 % (2.0-8.0); NEUTROPHILS # 7.5 10^3/uL (1.5-8.5); PLATELET COUNT, AUTOMATED 330 10^3/uL (150-450); RED BLOOD COUNT 5.17 10^6/uL (4.00-5.40); WHITE BLOOD COUNT 10.9 10^3/uL (4.0-10.0)
[2023-09-11 18:36] LABS: BLOOD UREA NITROGEN 15 MG/DL (9-23); CALCIUM LEVEL 8.6 MG/DL (8.5-10.1); CARBON DIOXIDE LEVEL 22 MMOL/L (20-31); CHLORIDE LEVEL 105 MMOL/L (98-107); CREATININE FOR GFR 0.77 MG/DL (0.55-1.30); GLOMERULAR FILTRATION RATE > 60.0 (>58); GLUCOSE, FASTING 162 MG/DL (60-100); POTASSIUM SERUM 3.9 MMOL/L (3.5-5.1); SODIUM LEVEL 139 MMOL/L (136-145)
[2023-09-11 18:39] LABS: THYROID STIMULATING HORMONE 2.871 uIU/ML (0.55-4.78)
[2023-09-11 19:23] LABS: CK-MB VALUE MASS < 1.0 NG/ML (<3.6)
[2023-09-11 19:24] LABS: CPK CREATINE PHOSPHOKINASE 65 U/L (34-145); MB/CK RELATIVE INDEX 1.53 (< OR =4)
[2023-09-11 20:22] LABS: CK-MB VALUE MASS < 1.0 NG/ML (<3.6)
[2023-09-11 20:23] LABS: CPK CREATINE PHOSPHOKINASE 59 U/L (34-145); MB/CK RELATIVE INDEX 1.69 (< OR =4)
[2023-09-11 21:59] VITALS: BP 150/93; TEMP 98.9; O2SAT 100
== END 2023-09-11 21:58 | disposition home or self-care (01) ==
LOC: M ED 17:15
DX: R55 Syncope and collapse (principal); R10.13 Epigastric pain; I44.4 Left anterior fascicular block; I25.2 Old myocardial infarction; F31.9 Bipolar disorder, unspecified; K21.9 Gastro-esophageal reflux disease without esophagitis; F90.9 Attention-deficit hyperactivity disorder, unspecified type; Z98.84 Bariatric surgery status; Z91.013 Allergy to seafood; Z91.041 Radiographic dye allergy status; Z91.030 Bee allergy status; Z79.4 Long term (current) use of insulin; Z79.83 Long term (current) use of bisphosphonates; Z79.899 Other long term (current) drug therapy

== ENCOUNTER 2023-11-20 10:39 | Day surgery (SDC) | payer BC, MEDICARE ==
[~2023-11-20] VITALS: Ht 154.9 cm; Wt 88.9 kg
[~2023-11-20 10:39] MED LIST changes: +LEXA1TAB PO; +NS 1,000 ML IV ONE; +TIRZ7.5P SC
[2023-11-20] MEDS ORDERED: fentaNYL 100 MCG/2 ML INJECTION As Ordered ONE (12:41)
[2023-11-20] MEDS ORDERED: propofoL 200 MG/20 ML VIAL As Ordered ONE (13:20)
[2023-11-20 13:22] VITALS: TEMP 96.3
[2023-11-20 13:40] VITALS: BP 129/58; O2SAT 97
== END 2023-11-20 13:42 | disposition home or self-care (01) ==
LOC: M OPP 10:39
PROVIDERS: ATTEND Internal Medicine Gastroenterology
DX: R13.10 Dysphagia, unspecified (principal); Z98.84 Bariatric surgery status; Z87.891 Personal history of nicotine dependence; Z95.0 Presence of cardiac pacemaker; I20.9 Angina pectoris, unspecified; I50.9 Heart failure, unspecified; Z86.74 Personal history of sudden cardiac arrest; Z86.73 Personal history of transient ischemic attack (TIA), and cerebral infarction without residual deficits; E11.9 Type 2 diabetes mellitus without complications; Z79.1 Long term (current) use of non-steroidal anti-inflammatories (NSAID); Z79.84 Long term (current) use of oral hypoglycemic drugs; Z79.85 Long-term (current) use of injectable non-insulin antidiabetic drugs; Z79.899 Other long term (current) drug therapy; Z88.8 Allergy status to other drugs, medicaments and biological substances; Z91.013 Allergy to seafood; Z91.030 Bee allergy status; Z91.041 Radiographic dye allergy status; Z91.048 Other nonmedicinal substance allergy status
CPT/HCPCS: 43249; J3010

== ENCOUNTER 2024-06-13 18:46 | Emergency (ER) | payer BC, MEDICARE ==
[~2024-06-13] VITALS: Ht 154.9 cm; Wt 88.4 kg
[~2024-06-13 18:46] MED LIST changes: +CYTO100T2 PO; -CYTO1TAB2 PO; -NS 1,000 ML IV ONE; +ONDA-282 PO; -ONDA4TAB6 PO; +TRAM1TAB42; -TRAM37.53
[2024-06-13 19:40] LABS: BASO # 0.1 10^3/uL (0.0-0.2); BASO % 0.8 % (0.0-1.0); EOS # 0.1 10^3/uL (0.0-0.5); EOS % 0.8 % (0.0-3.0); HEMOGLOBIN 12.5 g/dl (12.0-15.5); LYMPH # 2.3 10^3/uL (1.5-5.0); LYMPH % 29.2 % (24.0-44.0); MEAN CORPUSCULAR HEMOGLOBIN 25.5 pg (27.0-33.0); MEAN CORPUSCULAR HGB CONC 32.1 g/dl (32.0-36.5); MEAN CORPUSCULAR VOLUME 79.6 fl (80.0-96.0); MONO # 0.5 10^3/uL (0.0-0.8); MONO % 5.9 % (2.0-8.0); NEUTROPHILS % 62.4 % (36.0-66.0); PLATELET COUNT, AUTOMATED 312 10^3/uL (150-450); WHITE BLOOD COUNT 7.9 10^3/uL (4.0-10.0)
[2024-06-13 19:51] LABS: INR 1.05; PROTHROMBIN TIME 13.4 SECONDS (12.5-14.5)
[2024-06-13] MEDS: NS 1,000 ML IV ONE (19:52)
[2024-06-13 20:02] LABS: CK-MB VALUE MASS < 1.0 NG/ML (<3.6); LIPASE 19 U/L (12-53)
[2024-06-13 20:04] LABS: ALBUMIN 3.9 G/DL (3.2-5.2); ALKALINE PHOSPHATASE 133 U/L (46-116); ALT/SGPT 36 U/L (7.0-40); AST/SGOT 20 U/L (<34); BILIRUBIN,DIRECT 0.2 MG/DL (<0.4); BILIRUBIN,TOTAL 0.5 MG/DL (0.3-1.2); BLOOD UREA NITROGEN 9 MG/DL (9-23); CARBON DIOXIDE LEVEL 25 MMOL/L (20-31); CHLORIDE LEVEL 107 MMOL/L (98-107); CPK CREATINE PHOSPHOKINASE 127 U/L (34-145); CREATININE FOR GFR 0.68 MG/DL (0.55-1.30); GLOMERULAR FILTRATION RATE > 60.0 (>58); GLUCOSE, FASTING 215 MG/DL (60-100); MAGNESIUM LEVEL 1.9 MG/DL (1.8-2.4); MB/CK RELATIVE INDEX 0.78 (< OR =4); POTASSIUM SERUM 3.9 MMOL/L (3.5-5.1); SODIUM LEVEL 139 MMOL/L (136-145)
[2024-06-13 20:14] LABS: ACETONE/KETONE 0.91 MMOL/L (0.02-0.27)
[2024-06-13 20:20] LABS: VENOUS BASE EXCESS -1.6 (-2.0-2.0); VENOUS O2 SATURATION 57.5 % (60.0-80.0); VENOUS PARTIAL PRESSURE O2 29.7 mmHg (30.0-50.0); VENOUS PH 7.355 UNITS (7.330-7.430); VENOUS STANDARD HCO3 22.3 MMOL/L; VENOUS TOTAL CO2 25.4 MMOL/L (24.0-28.0)
[2024-06-13 23:04] VITALS: BP 127/76; TEMP 97; O2SAT 99
[2024-06-13] MEDS ORDERED: DIFL200T PO (23:07)
[2024-06-13] MEDS: FLUCONAZOLE 100 MG TAB PO ONE (23:31)
== END 2024-06-13 23:33 | disposition home or self-care (01) ==
LOC: M ED 18:46
DX: K52.9 Noninfective gastroenteritis and colitis, unspecified (principal); N76.0 Acute vaginitis; I44.4 Left anterior fascicular block; E11.9 Type 2 diabetes mellitus without complications; G43.909 Migraine, unspecified, not intractable, without status migrainosus; F17.200 Nicotine dependence, unspecified, uncomplicated; Z90.89 Acquired absence of other organs; Z98.84 Bariatric surgery status; Z86.79 Personal history of other diseases of the circulatory system; Z91.040 Latex allergy status; Z91.030 Bee allergy status; Z91.013 Allergy to seafood; Z79.899 Other long term (current) drug therapy; Z79.2 Long term (current) use of antibiotics

== ENCOUNTER 2024-10-19 16:05 | Emergency (ER) | payer BC ==
[~2024-10-19] VITALS: Ht 154.9 cm; Wt 78.4 kg
[~2024-10-19 16:05] MED LIST changes: +DIFL200T PO; -OLAN15TA13 PO; +OLAN15TA69 PO
[2024-10-19 17:03] LABS: KETONE, URINE AUTO RFX NEGATIVE (NEGATIVE); NITRITE, URINE AUTO RFX NEGATIVE (NEGATIVE); RBC, URINE AUTO RFX 1 /HPF (0-3); SQUAM EPITHELIAL CELL UR AURFX 1 /HPF (0-6); WBC, URINE AUTO RFX 2 /HPF (0-3)
[2024-10-19 17:09] LABS: LEUKOCYTE ESTERASE UR AUTO RFX 1+ (NEGATIVE)
[2024-10-19 18:49] LABS: LIPASE 20 U/L (12-53)
[2024-10-19 18:52] LABS: ALBUMIN 3.8 G/DL (3.2-5.2); ALKALINE PHOSPHATASE 104 U/L (35-104); ALT/SGPT 22 U/L (7.0-40); AST/SGOT 12 U/L (<34); BILIRUBIN,DIRECT < 0.1 MG/DL (<0.4); BILIRUBIN,TOTAL 0.3 MG/DL (0.3-1.2); BLOOD UREA NITROGEN 12 MG/DL (9-23); CALCIUM LEVEL 8.7 MG/DL (8.5-10.1); CARBON DIOXIDE LEVEL 24 MMOL/L (20-31); CHLORIDE LEVEL 110 MMOL/L (98-107); GLOMERULAR FILTRATION RATE > 60.0 (>58); GLUCOSE, FASTING 111 MG/DL (60-100); SODIUM LEVEL 143 MMOL/L (136-145); TOTAL PROTEIN 7.1 G/DL (5.7-8.2)
[2024-10-19 19:24] LABS: BASO # 0.1 10^3/uL (0.0-0.2); BASO % 0.6 % (0.0-1.0); EOS # 0.1 10^3/uL (0.0-0.5); HEMATOCRIT 40.6 % (36.0-47.0); HEMOGLOBIN 13.3 g/dl (12.0-15.5); LYMPH # 2.3 10^3/uL (1.5-5.0); LYMPH % 27.9 % (24.0-44.0); MEAN CORPUSCULAR HEMOGLOBIN 26.4 pg (27.0-33.0); MEAN CORPUSCULAR HGB CONC 32.8 g/dl (32.0-36.5); MEAN CORPUSCULAR VOLUME 80.7 fl (80.0-96.0); MONO # 0.4 10^3/uL (0.0-0.8); MONO % 4.8 % (2.0-8.0); NEUTROPHILS # 5.4 10^3/uL (1.5-8.5); NEUTROPHILS % 65.5 % (36.0-66.0); PLATELET COUNT, AUTOMATED 289 10^3/uL (150-450); RED BLOOD COUNT 5.03 10^6/uL (4.00-5.40); WHITE BLOOD COUNT 8.3 10^3/uL (4.0-10.0)
[2024-10-19] MEDS: PANTOPRAZOLE 40MG VIAL IV ONE (20:19)
[2024-10-19] MEDS: ACETAMINOPHEN *IV* 1,000 MG in IV 1 EA IV ONE (21:59)
[2024-10-19] MEDS: READI-CAT 2 PO SCH (22:15)
[2024-10-19] MEDS: KETOROLAC 30 MG/ML 1ML VIAL IV ONE (23:40)
[2024-10-20 01:34] VITALS: BP 125/83; TEMP 98.3; O2SAT 99
== END 2024-10-20 01:56 | disposition home or self-care (01) ==
LOC: M ED 16:05
DX: R10.13 Epigastric pain (principal); Z98.84 Bariatric surgery status; Z95.0 Presence of cardiac pacemaker; Z91.041 Radiographic dye allergy status; Z91.013 Allergy to seafood; Z91.030 Bee allergy status; Z88.8 Allergy status to other drugs, medicaments and biological substances; Z79.899 Other long term (current) drug therapy
CPT/HCPCS: 74176; 80048; 80076; 81001; 83690; 85025; 87086; 93005; 96374; 96375; 99284; J0131; J1885; J2470

== ENCOUNTER 2025-01-04 11:05 | Emergency (ER) | payer BC ==
[~2025-01-04] VITALS: Ht 154.9 cm; Wt 97.6 kg
[2025-01-04] MEDS ORDERED: TIRZ10PE (11:17)
[2025-01-04] MEDS ORDERED: LANTINJ4 (11:17)
[2025-01-04] MEDS ORDERED: PRAZ2CAP (11:17)
[2025-01-04] MEDS ORDERED: FLUP5TAB13 PO (11:17)
[2025-01-04 12:00] LABS: BASO % 0.5 % (0.0-1.0); EOS # 0.1 10^3/uL (0.0-0.5); EOS % 1.3 % (0.0-3.0); HEMATOCRIT 37.2 % (36.0-47.0); HEMOGLOBIN 12.7 g/dl (12.0-15.5); LYMPH # 1.7 10^3/uL (1.5-5.0); LYMPH % 21.7 % (24.0-44.0); MEAN CORPUSCULAR HEMOGLOBIN 27.3 pg (27.0-33.0); MEAN CORPUSCULAR HGB CONC 34.1 g/dl (32.0-36.5); MONO # 0.4 10^3/uL (0.0-0.8); MONO % 5.3 % (2.0-8.0); NEUTROPHILS # 5.6 10^3/uL (1.5-8.5); NEUTROPHILS % 70.7 % (36.0-66.0); PLATELET COUNT, AUTOMATED 278 10^3/uL (150-450); RED BLOOD COUNT 4.65 10^6/uL (4.00-5.40); WHITE BLOOD COUNT 7.9 10^3/uL (4.0-10.0)
[2025-01-04 12:31] LABS: ALBUMIN 3.7 G/DL (3.2-5.2); ALKALINE PHOSPHATASE 93 U/L (35-104); ALT/SGPT 22 U/L (7.0-40); AST/SGOT 27 U/L (<34); BILIRUBIN,DIRECT < 0.1 MG/DL (<0.4); BILIRUBIN,TOTAL 0.4 MG/DL (0.3-1.2); LIPASE 24 U/L (12-53); TOTAL PROTEIN 7.1 G/DL (5.7-8.2)
[2025-01-04] MEDS ORDERED: ONDA-282 PO (13:41)
[2025-01-04 14:15] VITALS: BP 135/65; TEMP 96.5; O2SAT 99
== END 2025-01-04 14:17 | disposition home or self-care (01) ==
LOC: M ED 11:05
DX: A08.4 Viral intestinal infection, unspecified (principal); K62.5 Hemorrhage of anus and rectum; K64.9 Unspecified hemorrhoids; F17.200 Nicotine dependence, unspecified, uncomplicated; Z86.79 Personal history of other diseases of the circulatory system; Z98.84 Bariatric surgery status; Z90.89 Acquired absence of other organs; Z88.8 Allergy status to other drugs, medicaments and biological substances; Z91.013 Allergy to seafood; Z91.041 Radiographic dye allergy status; Z91.030 Bee allergy status; Z91.048 Other nonmedicinal substance allergy status; Z79.899 Other long term (current) drug therapy; Z79.83 Long term (current) use of bisphosphonates

== ENCOUNTER 2025-01-08 23:22 | Emergency (ER) | payer BC ==
[~2025-01-08] VITALS: Ht 154.9 cm; Wt 79.5 kg
[~2025-01-08 23:22] MED LIST changes: +FLUP5TAB13 PO; +LANTINJ4; +PRAZ2CAP; +TIRZ10PE
[2025-01-08] MEDS ORDERED: TRAZ-257 (23:29)
[2025-01-09 00:41] LABS: HEMATOCRIT 36.5 % (36.0-47.0); HEMOGLOBIN 12.4 g/dl (12.0-15.5); MEAN CORPUSCULAR HEMOGLOBIN 27.9 pg (27.0-33.0); MEAN CORPUSCULAR VOLUME 82.2 fl (80.0-96.0); PLATELET COUNT, AUTOMATED 308 10^3/uL (150-450); RED BLOOD COUNT 4.44 10^6/uL (4.00-5.40); WHITE BLOOD COUNT 9.3 10^3/uL (4.0-10.0)
[2025-01-09 01:06] VITALS: BP 112/68; TEMP 97; O2SAT 98
[2025-01-09] MEDS ORDERED: COLA100C5 PO (01:09)
[2025-01-09] MEDS ORDERED: ANUS25SU PR (01:09)
== END 2025-01-09 01:13 | disposition home or self-care (01) ==
LOC: M ED 23:22
DX: K64.9 Unspecified hemorrhoids (principal); Z90.89 Acquired absence of other organs; Z91.041 Radiographic dye allergy status; Z91.013 Allergy to seafood; Z91.030 Bee allergy status; Z88.8 Allergy status to other drugs, medicaments and biological substances; Z79.899 Other long term (current) drug therapy; Z79.83 Long term (current) use of bisphosphonates

== ENCOUNTER 2025-07-01 13:43 | Emergency (ER) | payer BC, MEDICARE, OTHER ==
[~2025-07-01] VITALS: Ht 154.9 cm; Wt 82.6 kg
[~2025-07-01 13:43] MED LIST changes: -DIPH50CA PO; +DIPH50CA31 PO; -IBUP-1022 PO; +IBUP600T42 PO; +LIDO1ADH93 TOP; -LIDO5DIS41 TOP; +METH18TA15; -METH18TA6; -PROZ20CA11 PO; +PROZ20CA12 PO; +TRAZ-257
[2025-07-01] MEDS: NS (Normal Saline) 0.9% 1,000 ML IV ONE (15:11)
[2025-07-01 15:20] LABS: BASO # 0.1 10^3/uL (0.0-0.2); BASO % 0.5 % (0.0-1.0); EOS # 0.1 10^3/uL (0.0-0.5); EOS % 1.1 % (0.0-3.0); LYMPH # 2.1 10^3/uL (1.5-5.0); LYMPH % 23.0 % (24.0-44.0); MONO # 0.4 10^3/uL (0.0-0.8); MONO % 4.6 % (2.0-8.0); NEUTROPHILS # 6.5 10^3/uL (1.5-8.5); NEUTROPHILS % 70.3 % (36.0-66.0); PLATELET COUNT, AUTOMATED 332 10^3/uL (150-450)
[2025-07-01 15:24] LABS: KETONE, URINE AUTO RFX NEGATIVE (NEGATIVE); LEUKOCYTE ESTERASE UR AUTO RFX 2+ (NEGATIVE); MUCUS, URINE RFX SMALL (NEGATIVE); NITRITE, URINE AUTO RFX NEGATIVE (NEGATIVE); RBC, URINE AUTO RFX 10 /HPF (0-3); SQUAM EPITHELIAL CELL UR AURFX 10 /HPF (0-6); WBC, URINE AUTO RFX 62 /HPF (0-3)
[2025-07-01 15:49] LABS: CALCIUM LEVEL 8.7 MG/DL (8.5-10.1); CARBON DIOXIDE LEVEL 25 MMOL/L (20-31); CHLORIDE LEVEL 106 MMOL/L (98-107); CREATININE FOR GFR 0.77 MG/DL (0.55-1.30); GLOMERULAR FILTRATION RATE > 90.0 (>58); POTASSIUM SERUM 4.4 MMOL/L (3.5-5.1); SODIUM LEVEL 137 MMOL/L (136-145)
[2025-07-01] MEDS ORDERED: PROM1SUP2 PR (16:50)
[2025-07-01] MEDS ORDERED: CEFD1CAP9 PO (16:50)
[2025-07-01 16:54] VITALS: BP 128/82; TEMP 97.9; O2SAT 100
== END 2025-07-01 17:03 | disposition home or self-care (01) ==
LOC: M ED 13:43
DX: N39.0 Urinary tract infection, site not specified (principal); I45.10 Unspecified right bundle-branch block; I25.2 Old myocardial infarction; E11.9 Type 2 diabetes mellitus without complications; J45.909 Unspecified asthma, uncomplicated; K21.9 Gastro-esophageal reflux disease without esophagitis; F90.9 Attention-deficit hyperactivity disorder, unspecified type; F31.9 Bipolar disorder, unspecified; F20.9 Schizophrenia, unspecified; Z91.041 Radiographic dye allergy status; Z91.013 Allergy to seafood; Z91.030 Bee allergy status; Z88.8 Allergy status to other drugs, medicaments and biological substances; Z79.2 Long term (current) use of antibiotics; Z79.4 Long term (current) use of insulin; Z79.899 Other long term (current) drug therapy
CPT/HCPCS: 71045; 80048; 81001; 85025; 87088; 87186; 87486; 87581; 87633; 87798; 93005; 96361; 96374; 99284; J2765

== ENCOUNTER 2025-07-15 10:53 | Observation (INO) | payer BC ==
[~2025-07-15] VITALS: Ht 154.9 cm; Wt 82.3 kg
[~2025-07-15 10:53] MED LIST changes: +CEFD1CAP9 PO; -LANTINJ4; +LANTINJ4 INJ; -PRAZ2CAP; +PROM1SUP2 PR; -TRAZ-257
[2025-07-15 11:30] VITALS: BP 136/79; O2SAT 97
[2025-07-15 11:44] LABS: BASO # 0.1 10^3/uL (0.0-0.2); BASO % 0.6 % (0.0-1.0); EOS # 0.1 10^3/uL (0.0-0.5); EOS % 0.9 % (0.0-3.0); LYMPH # 1.6 10^3/uL (1.5-5.0); LYMPH % 19.1 % (24.0-44.0); MONO # 0.4 10^3/uL (0.0-0.8); MONO % 4.6 % (2.0-8.0); NEUTROPHILS # 6.3 10^3/uL (1.5-8.5); NEUTROPHILS % 74.3 % (36.0-66.0); PLATELET COUNT, AUTOMATED 325 10^3/uL (150-450)
[2025-07-15 11:57] LABS: INR 0.98
[2025-07-15 12:18] LABS: CALCIUM LEVEL 8.8 MG/DL (8.5-10.1); CARBON DIOXIDE LEVEL 25.0 MMOL/L (20-31); CHLORIDE LEVEL 106.0 MMOL/L (98-107); CREATININE FOR GFR 0.83 MG/DL (0.55-1.30); GLOMERULAR FILTRATION RATE 87.5 (>58); POTASSIUM SERUM 4.1 MMOL/L (3.5-5.1); SODIUM LEVEL 142.0 MMOL/L (136-145)
[2025-07-15] MEDS: ONDANSETRON 4MG 2ML VIAL IV ONE (12:18)
[2025-07-15] MEDS: NS (Normal Saline) 0.9% 1,000 ML IV ONE (12:18)
[2025-07-15] MEDS: KETOROLAC 30 MG/ML 1 ML VIAL IV ONE (12:19)
[2025-07-15] MEDS: diphenhydrAMINE 50 MG/ML VIAL IV ONE (12:19)
[2025-07-15] MEDS: VALPROATE SOD INJ 1,000 MG in D5W 50 ML IV ONE (14:43)
[2025-07-15] MEDS: HYDROMORPHONE HCL 0.5 MG/0.5 ML SYRINGE IV ONE (15:37)
[2025-07-15] MEDS: LIDOCAINE 2% MDV 20 ML VIAL SC ONE (17:20)
[2025-07-15] MEDS ORDERED: TIRZ12.5 INJ (18:30)
[2025-07-15] MEDS ORDERED: HOME MED LIST COMPLETE! XX SCH (18:35)
[2025-07-15] MEDS ORDERED: MOM 30 ML SUSPENSION UDC PO PRN (19:45)
[2025-07-15] MEDS ORDERED: MAALOX 30 ML SUSP *UDC PO PRN (19:45)
[2025-07-15] MEDS: ACETAMINOPHEN *IV* 1,000 MG in IV 1 EA IV ONE (21:33)
[2025-07-15 21:35] VITALS: BP 139/87
[2025-07-15 21:40] VITALS: BP 138/86
[2025-07-15 21:45] VITALS: BP 143/101
[2025-07-15 22:05] VITALS: BP 139/87; TEMP 97.2; O2SAT 100
[2025-07-15 23:46] VITALS: BP 99/61; TEMP 97.5; O2SAT 100
[2025-07-16] VITALS (13 sets, daily range): BP systolic 96–135; BP diastolic 59–115; TEMP 97.2–97.7; O2SAT 97–99
[2025-07-16 06:15] LABS: PLATELET COUNT, AUTOMATED 283 10^3/uL (150-450)
[2025-07-16 06:30] LABS: ALT/SGPT 45.0 U/L (7.0-40); AST/SGOT 30.0 U/L (<34); CALCIUM LEVEL 8.2 MG/DL (8.5-10.1); CARBON DIOXIDE LEVEL 24.0 MMOL/L (20-31); CHLORIDE LEVEL 105.0 MMOL/L (98-107); CREATININE FOR GFR 0.83 MG/DL (0.55-1.30); GLOMERULAR FILTRATION RATE 87.5 (>58); MAGNESIUM LEVEL 2.0 MG/DL (1.8-2.4); POTASSIUM SERUM 4.3 MMOL/L (3.5-5.1); SODIUM LEVEL 141.0 MMOL/L (136-145)
[2025-07-16] MEDS ORDERED: DEXTROSE 50% 50 ML SYRINGE IV PRN (07:50)
[2025-07-16] MEDS ORDERED: GLUCAGON INJ 1 MG VIAL SC PRN (07:50)
[2025-07-16] MEDS ORDERED: GLUCOSE 4 GM CHEW PO PRN (07:50)
[2025-07-16] MEDS: ENOXAPARIN 40 MG/0.4 ML SYRINGE (J1650 PER 10MG) SC SCH (09:56)
[2025-07-16] MEDS: INSULIN LISPRO (NovoLOG) PER UNIT SC SCH ×2 (12:00→21:00)
[2025-07-16] MEDS: ASPIRIN 81 MG ENTERIC TABLET PO SCH (12:13)
[2025-07-16] MEDS: ACETAMINOPHEN 325 MG TAB PO PRN (12:14)
[2025-07-16] MEDS: NS (Normal Saline) 0.9% 1,000 ML IV SCH (15:31)
[2025-07-16] MEDS: KETOROLAC 30 MG/ML 1 ML VIAL IV PRN (15:38)
[2025-07-16] MEDS ORDERED: FLUZONE VACCINE TRI PF(25-26) 0.5ML SYRINGE IM.IMMUN ONE (16:00)
[2025-07-16] MEDS: diphenhydrAMINE 50 MG/ML VIAL IV ONE (16:39)
[2025-07-16] MEDS: traZODone 50 MG TAB PO SCH (20:59)
[2025-07-16] MEDS ORDERED: traZODone 100 MG TAB PO SCH (21:00)
[2025-07-16] MEDS ORDERED: traZODone 50 MG TAB PO SCH (21:00)
[2025-07-16] MEDS: PRAZOSIN 1 MG CAP PO SCH (21:00)
[2025-07-16] MEDS: LanTUS (INSULIN GLARGINE INJ) 1 UNITS/0.01 ML SC SCH (21:00)
[2025-07-17 02:35] VITALS: BP 122/75; TEMP 98.2; O2SAT 96
[2025-07-17 08:13] LABS: BASO # 0.0 10^3/uL (0.0-0.2); BASO % 0.3 % (0.0-1.0); EOS # 0.1 10^3/uL (0.0-0.5); EOS % 1.5 % (0.0-3.0); LYMPH # 1.6 10^3/uL (1.5-5.0); LYMPH % 27.7 % (24.0-44.0); MONO # 0.4 10^3/uL (0.0-0.8); MONO % 6.5 % (2.0-8.0); NEUTROPHILS # 3.7 10^3/uL (1.5-8.5); NEUTROPHILS % 63.5 % (36.0-66.0); PLATELET COUNT, AUTOMATED 235 10^3/uL (150-450)
[2025-07-17] MEDS ORDERED: ASPI81TAEC PO (08:31)
[2025-07-17 08:46] LABS: ALT/SGPT 27 U/L (7.0-40); AST/SGOT 12 U/L (<34); CALCIUM LEVEL 8.4 MG/DL (8.5-10.1); CARBON DIOXIDE LEVEL 23 MMOL/L (20-31); CHLORIDE LEVEL 110 MMOL/L (98-107); CREATININE FOR GFR 0.77 MG/DL (0.55-1.30); GLOMERULAR FILTRATION RATE > 90.0 (>58); MAGNESIUM LEVEL 2.0 MG/DL (1.8-2.4); POTASSIUM SERUM 4.2 MMOL/L (3.5-5.1); SODIUM LEVEL 143 MMOL/L (136-145)
[2025-07-17 09:00] VITALS: BP_SYST 127; BP_SYST 135; BP_SYST 138; BP_DIAS 75; BP_DIAS 80; BP_DIAS 84
[2025-07-17] MEDS ORDERED: LANC30MI XX (10:30)
[2025-07-17] MEDS ORDERED: BLOOKIT21 XX (10:30)
[2025-07-17] MEDS ORDERED: ALCOPAD25 TOP (10:30)
[2025-07-17] MEDS ORDERED: GLUC1TES2 XX (10:30)
[2025-07-17] MEDS: FLUZONE VACCINE TRI PF(25-26) 0.5ML SYRINGE IM.IMMUN ONE (11:00)
== END 2025-07-17 11:29 | disposition home or self-care (01) ==
LOC: M ED 10:53 → M ED INP 10:56 → M MS5PR 21:05 → M MS4PR 07-16 15:04 → M MSPAV 07-16 18:08
PROVIDERS: ADMIT Student in an Organized Health Care Education/Training Program; ATTEND Internal Medicine
DX: R55 Syncope and collapse (principal); G43.909 Migraine, unspecified, not intractable, without status migrainosus; E11.9 Type 2 diabetes mellitus without complications; I49.5 Sick sinus syndrome; Z95.0 Presence of cardiac pacemaker; R74.01 Elevation of levels of liver transaminase levels; Z23 Encounter for immunization; F90.9 Attention-deficit hyperactivity disorder, unspecified type; F31.9 Bipolar disorder, unspecified; G47.00 Insomnia, unspecified; I67.1 Cerebral aneurysm, nonruptured; K22.2 Esophageal obstruction; K21.9 Gastro-esophageal reflux disease without esophagitis; Z79.82 Long term (current) use of aspirin; Z79.899 Other long term (current) drug therapy; Z79.4 Long term (current) use of insulin
CPT/HCPCS: 36415; 70450; 71045; 80047; 80048; 80053; 83735; 85025; 85027; 85610; 85730; 86850; 86900; 86901; 90656; 93005; 93041; 93880; 94760; 96365; 96372; 96375; 96376; 97165; 99285; G0008; J0131; J1171; J1200; J1650; J1815; J1885; J2405; J2765